=== PATIENT | male | born 1940 | race Caucasian/White ===

== ENCOUNTER → 2017-03-15 | Outpatient (CLI) | payer MEDICARE ==
[~2017-03-15] MED LIST: AMLO5TAB2 PO; ASPI81TAEC PO; ATOR1TAB21 PO; FINA5TAB2 PO; LISI-542 PO; LISI10TA4 PO; METO1TAB87 PO; RANI150T PO; RANI1TAB6 PO; TYLE167L PO
[2017-03-15 10:58] LABS: ALBUMIN 3.7 GM/DL (3.2-5.2); ANION GAP 6 MEQ/L (8-16); BLOOD UREA NITROGEN 12 MG/DL (7-18); CALCIUM LEVEL 8.8 MG/DL (8.8-10.2); CARBON DIOXIDE LEVEL 27 MEQ/L (21-32); CHLORIDE LEVEL 112 MEQ/L (98-107); CREATININE FOR GFR 1.23 MG/DL (0.70-1.30); GLOMERULAR FILTRATION RATE > 60.0 (>42); GLUCOSE, FASTING 88 MG/DL (83-110); PHOSPHORUS LEVEL 2.7 MG/DL (2.5-4.9); POTASSIUM SERUM 4.6 MEQ/L (3.5-5.1); SODIUM LEVEL 145 MEQ/L (136-145)
== END ==
LOC: M LAB 09:04
PROVIDERS: ATTEND Nurse Practitioner Family
DX: I10 Essential (primary) hypertension (principal)

== ENCOUNTER 2017-05-09 19:22 | Inpatient (IN) | payer MEDICARE ==
[~2017-05-09] VITALS: Ht 175.3 cm; Wt 62.5 kg
[~2017-05-09 19:22] MED LIST changes: -AMLO5TAB2 PO; -ASPI81TAEC PO; -ATOR1TAB21 PO; -FINA5TAB2 PO; -LISI-542 PO; -LISI10TA4 PO; -METO1TAB87 PO; -RANI150T PO
[2017-05-09] MEDS ORDERED: FINA5TAB2 PO (19:51)
[2017-05-09] MEDS ORDERED: LISI-542 PO (19:51)
[2017-05-09] MEDS ORDERED: ISOVUE-370 76% 100ML VIAL (Q9967) As Ordered ONE (20:00)
[2017-05-09] MEDS ORDERED: NS 1,000 ML IV ONE (20:00)
[2017-05-09] MEDS ORDERED: ONDANSETRON 4MG/2ML VIAL (J2405) IV ONE (20:00)
[2017-05-09 20:12] LABS: BASO % 0.3 % (0.0-1.0); EOS # 0.1 10^3/uL (0.0-0.50); EOS % 1.1 % (0.0-3.0); IMMATURE GRANULOCYTE % 0.3 % (0-0); LYMPH # 1.1 10^3/uL (1.5-4.5); LYMPH % 17.6 % (24.0-44.0); MEAN CORPUSCULAR HEMOGLOBIN 36.2 pg (27.0-33.0); MEAN CORPUSCULAR HGB CONC 34.3 g/dl (32.0-36.5); MONO # 0.2 10^3/uL (0.0-0.8); MONO % 3.5 % (0.0-5.0); NEUTROPHILS # 4.9 10^3/uL (1.8-7.7); NEUTROPHILS % 77.2 % (36.0-66.0); PLATELET COUNT, AUTOMATED 128 10^3/uL (150-450); RED CELL DISTRIBUTION WIDTH 13.6 % (11.5-14.5); WHITE BLOOD COUNT 6.4 10^3/uL (4.0-10.0)
[2017-05-09 20:13] LABS: ADD MORPHOLOGY? YES; MEAN CORPUSCULAR VOLUME 105.5 fl (80.0-96.0)
[2017-05-09 20:16] LABS: ALBUMIN/GLOBULIN RATIO 1.38 (1.00-1.93); ALKALINE PHOSPHATASE 84 U/L (45-117); ALT/SGPT 19 U/L (12-78); ANION GAP 6 MEQ/L (8-16); AST/SGOT 16 U/L (15-37); BILIRUBIN,DIRECT 0.1 MG/DL (0.0-0.2); BILIRUBIN,TOTAL 0.4 MG/DL (0.2-1.0); BLOOD UREA NITROGEN 12 MG/DL (7-18); CALCIUM LEVEL 9.1 MG/DL (8.8-10.2); CARBON DIOXIDE LEVEL 31 MEQ/L (21-32); CHLORIDE LEVEL 105 MEQ/L (98-107); CREATININE FOR GFR 1.14 MG/DL (0.70-1.30); GLOMERULAR FILTRATION RATE > 60.0 (>42); GLUCOSE, FASTING 127 MG/DL (83-110); POTASSIUM SERUM 3.5 MEQ/L (3.5-5.1); SODIUM LEVEL 142 MEQ/L (136-145); TOTAL PROTEIN 6.9 GM/DL (6.4-8.2)
[2017-05-09 20:26] LABS: INR 1.06
[2017-05-09] MEDS: MORPHINE 4 MG/ML 1ML SYRINGE IV PRN ×2 (20:50→20:51)
[2017-05-09] MEDS ORDERED: PIPERACILLIN/TAZOBACTAM SOD 3.375 GM in D5W 50 ML IV ONE (21:00)
--- NOTE | 2017-05-09 21:20 | REPUSA ---
CT angiogram of the abdominal aorta, CT of the abdomen and pelvis with contrast Clinical statement: Pain. Technique: Multiple axial CT images were obtained from the base of the lungs through the floor of the pelvis following administration of 100 cc of Isovue-370 intravenous contrast. 1.25 mm axial slice th [facility] was utilized. Coronal, sagittal, and 3-D reconstructed images were also obtained. Comparison: 05/26/2014. Findings: Aorta: The aortoiliac stent graft is grossly intact. Mild atherosclerotic changes are noted. There is no evidence of aneurysm or dissection. There is no evidence of extravasation. Chest: The visualized lung bases demonstrate extensive emphysema and chronic interstitial changes, in cluding scarring in the right lower lobe. Abdomen: Moderate amount of free intraperitoneal air scattered throughout the abdomen. The liver, spl een, pancreas, gallbladder, and adrenal glands are unremarkable. There is a 2 cm simple cyst in the u pper left kidney. The right kidney is unremarkable. There is no evidence of abdominal lymphadenopathy or ascites. Pelvis: There is extensive sigmoid diverticulosis. Bowel wall thickening in this region is noted, wit h adjacent collections of free air. This is suspicious for acute diverticulitis with perforation. A s mall amount of adjacent ascites extending into the lower pelvis is also noted. The urinary bladder is within normal limits. The other pelvic structures appear grossly intact. There is no evidence of pel ruperto lymphadenopathy. Bones: There are no suspicious osseous abnormalities seen. Impression: 1. Extensive sigmoid diverticulosis with bowel wall thickening and surrounding fluid as well as colle ction of free air along the mesenteric border of the sigmoid. The findings are suspicious for acute s igmoid diverticulitis with acute perforation. 2. There is moderate amount of diffuse free intraperitoneal air within the pelvis extending into the upper abdomen under the diaphragms bilaterally. 3. Small amount of abdominal and pelvic ascites. No discrete evidence of abscess. 4. The aortoiliac stent graft is grossly intact. 5. Simple cyst in the upper left kidney. Dr. Mckeon was notified of these findings at 9:16 PM on 05/09/2013.
[2017-05-09] MEDS ORDERED: RANI150T PO (21:57)
[2017-05-09] MEDS ORDERED: ASPI81TAEC PO (21:57)
[2017-05-09 22:06] LABS: ANISOCYTOSIS 2+
[2017-05-09 22:07] LABS: MICROCYTOSIS 2+
[2017-05-09] MEDS ORDERED: SUCCINYLCHOLINE 100 MG/5 ML SYRINGE (J0330) As Ordered ONE ×2 (22:55→23:00)
[2017-05-09] MEDS ORDERED: fentaNYL 100 MCG/2 ML INJECTION (J3010) As Ordered ONE (22:59)
[2017-05-09] MEDS ORDERED: MIDAZOLAM INJ 2 MG/2 ML VIAL (J2250) As Ordered ONE (22:59)
[2017-05-09] MEDS ORDERED: PHENYLephrine HCL 500 MCG/5 ML (100MCG/ML) SYRINGE (J2370) As Ordered ONE (22:59)
[2017-05-09] MEDS ORDERED: ROCURONIUM BROMIDE 50 MG/5 ML VIAL/SYRINGE As Ordered ONE (23:00)
[2017-05-09] MEDS ORDERED: LIDOCAINE 2% INJ 100 MG/5 ML SDV (FOR ANES.) As Ordered ONE (23:00)
[2017-05-09] MEDS ORDERED: PROPOFOL 200 MG/20 ML VIAL As Ordered ONE (23:00)
[2017-05-09] MEDS ORDERED: NEOSTIGMINE 10 MG/10 ML VIAL (J2710) As Ordered ONE (23:01)
[2017-05-09] MEDS ORDERED: GLYCOPYRROLATE INJ 0.2 MG/ML 2 ML VIAL As Ordered ONE (23:01)
[2017-05-09] MEDS ORDERED: HYDROmorphone HCL 2 MG/ML 1ML VIAL (J1170) As Ordered ONE (23:04)
[2017-05-09 23:12] LABS: ABG BASE EXCESS 1.9 (-2.0-2.0); ABG HCO3 26.5 MEQ/L (22.0-26.0); ABG PARTIAL PRESSURE CO2 41.4 mmHg (35.0-45.0); ABG PARTIAL PRESSURE O2 286.9 mmHg (75.0-100.0); ABG STANDARD HCO3 26.2 MEQ/L (22.0-26.0); ABG TOTAL CO2 27.8 MEQ/L (23.0-31.0); ABG pH (ARTERIAL) 7.424 UNITS (7.350-7.450)
[2017-05-09] MEDS ORDERED: LABETALOL HCL 100 MG/20 ML VIAL As Ordered ONE (23:34)
[2017-05-10] VITALS (22 sets, daily range): BP systolic 75–133; BP diastolic 49–68; O2SAT 99
[2017-05-10] MEDS ORDERED: ONDANSETRON 4MG/2ML VIAL (J2405) As Ordered ONE (00:21)
[2017-05-10] MEDS ORDERED: NS 1,000 ML IV SCH (00:44)
[2017-05-10] MEDS ORDERED: diphenhydrAMINE INJ 50MG/ML VIAL (J1200) IV PRN (00:45)
[2017-05-10] MEDS ORDERED: CIPROFLOXACIN 400 MG in APPROPRIATE DILUENT 1 EA IV SCH (00:45)
[2017-05-10] MEDS ORDERED: MORPHINE 1MG/ML IN 0.9% NACL 100ML IV BAG IV PRN (00:45)
[2017-05-10] MEDS ORDERED: MORPHINE 1MG/ML IN 0.9% NACL 100ML IV BAG As Ordered ONE (00:45)
[2017-05-10] MEDS ORDERED: EPIDURAL/PCA KEYS XX PRN (00:45)
[2017-05-10] MEDS ORDERED: NALOXONE INJ 0.4 MG/1 ML VIAL (J2310) IV PRN (00:45)
[2017-05-10] MEDS ORDERED: ONDANSETRON 4MG/2ML VIAL (J2405) IV PRN ×3 (00:45→01:30)
[2017-05-10] MEDS ORDERED: PROMETHAZINE INJ 25 MG/ML VIAL (J2550) IV PRN (00:45)
[2017-05-10] MEDS ORDERED: METOCLOPRAMIDE INJ 10MG/2ML VIAL (J2765) IV PRN (00:45)
[2017-05-10] MEDS ORDERED: NALBUPHINE HCL 10 MG/ML AMP (J2300) IV PRN (00:45)
[2017-05-10] MEDS ORDERED: IPRATROPIUM 0.5MG/ALBUTEROL 2.5MG INH SOL UD 3ML (DUONEB)(J7620) NEB PRN (00:45)
[2017-05-10] MEDS ORDERED: HYDROmorphone HCL 1 MG/ML SYRINGE (J1170) As Ordered ONE (01:20)
[2017-05-10] MEDS ORDERED: fentaNYL 100 MCG/2 ML INJECTION (J3010) IV PRN (01:30)
[2017-05-10] MEDS ORDERED: LABETALOL HCL 100 MG/20 ML VIAL IV PRN (01:30)
[2017-05-10] MEDS ORDERED: LR 1,000 ML IV SCH (01:30)
[2017-05-10] MEDS: HYDROmorphone HCL 1 MG/ML SYRINGE (J1170) IV PRN ×2 (02:05→02:20)
[2017-05-10] MEDS: CIPROFLOXACIN 400 MG in APPROPRIATE DILUENT 1 EA IV SCH ×2 (03:39→13:37)
[2017-05-10] MEDS: NS 1,000 ML IV SCH ×4 (03:40→22:48)
[2017-05-10 03:43] LABS: MEAN CORPUSCULAR HEMOGLOBIN 35.8 pg (27.0-33.0); MEAN CORPUSCULAR HGB CONC 33.9 g/dl (32.0-36.5); RED CELL DISTRIBUTION WIDTH 13.8 % (11.5-14.5); WHITE BLOOD COUNT 7.3 10^3/uL (4.0-10.0)
[2017-05-10 03:45] LABS: MEAN CORPUSCULAR VOLUME 105.7 fl (80.0-96.0)
[2017-05-10 04:05] LABS: ANION GAP 6 MEQ/L (8-16); BLOOD UREA NITROGEN 14 MG/DL (7-18); CARBON DIOXIDE LEVEL 28 MEQ/L (21-32); CHLORIDE LEVEL 110 MEQ/L (98-107); CREATININE FOR GFR 1.21 MG/DL (0.70-1.30); GLOMERULAR FILTRATION RATE > 60.0 (>42); GLUCOSE, FASTING 126 MG/DL (83-110); POTASSIUM SERUM 4.1 MEQ/L (3.5-5.1); SODIUM LEVEL 144 MEQ/L (136-145)
[2017-05-10 04:25] LABS: CALCIUM LEVEL 7.6 MG/DL (8.8-10.2)
[2017-05-10] MEDS: metroNIDAZOLE 500 MG in APPROPRIATE DILUENT 1 EA IV SCH ×3 (05:42→20:35)
[2017-05-10] MEDS: IPRATROPIUM 0.5MG/ALBUTEROL 2.5MG INH SOL UD 3ML (DUONEB)(J7620) NEB SCH ×4 (06:13→19:03)
[2017-05-10] MEDS ORDERED: SODIUM CHLORIDE 0.9% 1000 ML IV ONE (06:15)
[2017-05-10] MEDS: LISINOPRIL 5 MG TAB PO SCH (09:00)
[2017-05-10] MEDS: PANTOPRAZOLE 40MG INJ (PROTONIX) (C9113) IV SCH (09:17)
--- NOTE | 2017-05-10 15:25 | HPE ---
DATE OF ADMISSION: 05/10/2017 HISTORY OF PRESENT ILLNESS: The patient is a 76-year-old male who has had some constipation over the last 3 days, however, developed acute onset of abdominal pain radiating to his back earlier today. Since that time he has been brought into the emergency room with this severe abdominal pain without fevers, without chills. No diarrhea. No constipation issues. No blood per rectum. No previous colonoscopy. Has had a percutaneous endoscopic gastrostomy tube placed by Dr. 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 There is question whether he has had some ulcers in the past. I was called see him for free air appreciated on CT scan and severe abdominal pain. PAST MEDICAL HISTORY: Significant for: 1. History of mouth cancer. 2. History of colitis. 3. History of arthritis. 4. History of abdominal aortic aneurysm repair. 5. History of hypertension. 6. History of gastric ulcers. 7. History of tonsillectomy. 8. History of percutaneous abdominal aortic aneurysm repair. MEDICATIONS: Included aspirin, finasteride, ranitidine, and lisinopril. PHYSICAL EXAMINATION: Reveals a 76-year-old male who is writhing in bed. HEENT: Unremarkable. NECK: Supple without adenopathy. LUNGS: Clear to auscultation. HEART: Regular. ABDOMEN: Tensely distended with diffuse peritonitis, guarding, rebound, and referred rebound throughout. EXTREMITIES: Warm, well-perfused, although does have some good femoral pulses, although becoming somewhat clammy distally at this point but good pulses and capillary refill at this point. IMPRESSION AND PLAN: The patient has a perforated bowel on CT scan. I anticipate, given its distribution and the inflammatory changes around the sigmoid area, it is most likely a perforated sigmoid colon given that there are some diverticula appreciated, most likely perforated diverticulitis. Will plan on exploratory laparotomy, repair of ulcer if necessary, but most likely is bowel resection with possible colostomy. The patient understands the risks as well as benefits, and I have discussed this with him and his son who agreed to proceed with operative intervention as soon as possible.
--- NOTE | 2017-05-10 15:36 | IPN ---
DATE: The patient is status post sigmoid colectomy and colostomy last night and overall needed a fluid bolus because of decreased urine output during the night, but otherwise his urine output picked up nicely throughout the rest of the morning. He has had no fevers originally this morning right after the operation but then has had a maximum temperature of 100.4. Does not complain of any respiratory complaints. Complains of pain associated with movement. He is sitting up in chair. Lungs are clear to auscultation anteriorly, decreased at the bases bilaterally. Heart is regular. Abdomen is soft, tender, though, throughout. His dressing is clean and dry on the midline. His ostomy is pink, although quite edematous. There is no a drainage from the ostomy at this time. IMPRESSION AND PLAN: 1. Fluid status. Seems to be making adequate urine. Creatinine did not significantly bump up, and with increasing urine output I feel that will keep the current fluid rate as is and re-evaluate it as necessary. 2. Infection, currently on antibiotics appropriate for perforated diverticulitis. 3. Flower catheter. Unable to ambulate well. Will keep the Flower catheter in place. 4. Respiratory. The patient has some probable dependent atelectasis on his physical exam as expected with such as a large operation. Will continue with incentive spirometry and respiratory treatment. 5. Pain control. Has not been using his pain/patient-controlled analgesia (ARTIFICIAL FOLIAGE ARRANGER) adequately at this time. We have encouraged him to use it, and if he does not do well with the pain itself, my recommendation is that we may need to place an epidural. Will re-evaluate him later on today.
--- NOTE | 2017-05-10 17:58 | RO ---
DATE OF PROCEDURE: 05/10/2017 PREOPERATIVE DIAGNOSIS: Perforated bowel. POSTOPERATIVE DIAGNOSIS: Perforated diverticulitis/sigmoid colon. OPERATIVE PROCEDURE: Exploratory laparotomy with sigmoid colectomy and colostomy. SURGEON: Paul Bland MD GLYCERIN OPERATOR: ANESTHESIA: General endotracheal anesthesia ESTIMATED BLOOD LOSS: 250 mL FLUIDS: Crystalloid. BRIEF PROCEDURE SUMMARY: The patient was taken to the operating room and was given general anesthesia. After adequate anesthesia and preoperative antibiotics were given the patient was prepped and draped in the usual sterile fashion. Next a midline incision was made with skin knife. Electrocautery was used to cut through dermis and underlying subcutaneous tissue down through the fascia. Peritoneum was entered and there was some purulent bloody fluid within the peritoneum. This was more turbid than expected from the stomach. The stomach was evaluated with palpation, did not reveal any inflammatory changes. However, there was some on palpation inflammatory changes down in the sigmoid area. Thus the incision was extended inferiorly and Bookwalter retractor was used to provide retraction. After using electrocautery to dissect the white line of Toldt, the sigmoid colon was able to be mobilized. Ureter was seen and preserved during this and the white line of Toldt was used to dissect out the colon laterally. However, the colon was almost posterior to the kidney laterally in this area. But in any case, the peritoneum was taken down in this area and once this was mobilized adequately I felt that the sigmoid colon perforation area could be visualized was able to be resected. Sigmoid colon was mobilized off the pelvic sidewall with some blunt dissection and the colon proximally was transected using a GENI 75 stapler. Latty 60 vascular loads were used to take the mesentery. However, there was this loop of sigmoid colon that was into the pelvis, that was firmly adherent to the pelvis itself, which eventually was dissected off surrounding tissue and mobilized adequately. Once I got to the rectosigmoid junction area and this thickened abnormal area of sigmoid colon was visualized, the mesentery was taken with Latty vascular load and the rectosigmoid junction area was transected using a GENI stapler. This portion was removed and was packed with a dry gauze. There was some oozing from the peritoneum in this area and after some mild pressure this was had stopped nicely. Once the descending colon/sigmoid area proximally had been mobilized, the abdomen was copiously irrigated until clear. A #19 [place] drain was left in the bed of the dissection down into the pelvis and the colostomy was brought out through a left-sided transrectus muscle incision using a sharp skin knife to create the skin incision. Electrocautery through the subcutaneous tissue down to the fascia. Fascia was incised with a cruciate incision. Both anterior and posterior aspect of rectus muscle and the colon was brought out through this site. Next, the gown and gloves were changed and a closing tray was used and the incision was closed with looped #0 PDS in a running manner. Skin was loosely approximated and packed with gauze. The ostomy was fashioned using #3-0 Vicryl imbricating on the antimesenteric side and using multiple interrupted #3-0 Vicryl sutures. The ostomy appliance was fashioned and a dry sterile dressing was placed on the midline. The patient was awakened from his anesthesia, extubated and brought to the recovery room awake, alert and hemodynamically stable. Sponge and needle counts correct times two.
[2017-05-10] MEDS: [UNRECOGNIZED DRUG - OTHER] PO PRN ×2 (20:09→22:18)
[2017-05-11] VITALS (23 sets, daily range): BP systolic 91–160; BP diastolic 48–76; O2SAT 98–99
[2017-05-11] MEDS: CIPROFLOXACIN 400 MG in APPROPRIATE DILUENT 1 EA IV SCH ×2 (00:11→14:00)
[2017-05-11] MEDS: [UNRECOGNIZED DRUG - OTHER] PO PRN ×5 (00:12→14:00)
[2017-05-11] MEDS: IPRATROPIUM 0.5MG/ALBUTEROL 2.5MG INH SOL UD 3ML (DUONEB)(J7620) NEB SCH ×4 (00:54→20:34)
[2017-05-11] MEDS: metroNIDAZOLE 500 MG in APPROPRIATE DILUENT 1 EA IV SCH ×3 (04:24→21:46)
[2017-05-11 05:01] LABS: MEAN CORPUSCULAR HEMOGLOBIN 35.9 pg (27.0-33.0); MEAN CORPUSCULAR HGB CONC 33.2 g/dl (32.0-36.5); RED CELL DISTRIBUTION WIDTH 14.1 % (11.5-14.5); WHITE BLOOD COUNT 9.1 10^3/uL (4.0-10.0)
[2017-05-11 05:05] LABS: MEAN CORPUSCULAR VOLUME 108.1 fl (80.0-96.0)
[2017-05-11 05:06] LABS: PLATELET COUNT, AUTOMATED 89 10^3/uL (150-450)
[2017-05-11 05:19] LABS: ANION GAP 5 MEQ/L (8-16); BLOOD UREA NITROGEN 19 MG/DL (7-18); CALCIUM LEVEL 6.7 MG/DL (8.8-10.2); CARBON DIOXIDE LEVEL 28 MEQ/L (21-32); CHLORIDE LEVEL 108 MEQ/L (98-107); CREATININE FOR GFR 1.07 MG/DL (0.70-1.30); GLOMERULAR FILTRATION RATE > 60.0 (>42); GLUCOSE, FASTING 113 MG/DL (83-110); POTASSIUM SERUM 4.1 MEQ/L (3.5-5.1); SODIUM LEVEL 141 MEQ/L (136-145)
[2017-05-11] MEDS: LISINOPRIL 5 MG TAB PO SCH (08:13)
[2017-05-11] MEDS: PANTOPRAZOLE 40MG INJ (PROTONIX) (C9113) IV SCH (08:13)
[2017-05-11] MEDS ORDERED: CALCIUM GLUCONATE 1,000 MG in D5W MINI-BAG PLUS 100 ML IV ONE (10:15)
[2017-05-11 11:11] LABS: REASON FOR REVIEW COMPREHENSIVE REVIEW
[2017-05-11] MEDS: NS 1,000 ML IV SCH (11:24)
[2017-05-11 12:30] LABS: MEAN CORPUSCULAR HEMOGLOBIN 36.7 pg (27.0-33.0); MEAN CORPUSCULAR HGB CONC 33.5 g/dl (32.0-36.5); RED CELL DISTRIBUTION WIDTH 14.2 % (11.5-14.5); WHITE BLOOD COUNT 9.1 10^3/uL (4.0-10.0)
[2017-05-11 12:34] LABS: MEAN CORPUSCULAR VOLUME 109.4 fl (80.0-96.0)
--- NOTE | 2017-05-11 14:54 | IPNPDOC ---
Text Note Date of Service The patient was seen on 05/11/17. NOTE At 76-year-old man 2 days status post sigmoid colectomy and colostomy. Patient' s pain control is via ASSISTANT AUDITOR pump however it appears the patient is not using as much as he needs to. Patient was also on continuous morphine drip however that had to be discontinued because patient appeared sedated and respiratory decreased became a concerned. This morning patient appears to be in severe pain. Patient responds to all questions 5 morning, and went to the pain. PE Gen., patient is resting better. Appears to be in severe pain Heart, S1 and S2 present, no murmurs rubs or gallops Lungs, clear to auscultate Abdomen, palpated abdomen seems to reproduce significant pain the patient. His dressings are dry and is midline. His ostomy is pink, with drainage in his ostomy bag. Legs, no deformities IMPRESSION AND PLAN: 1. Fluid status. Patient appears significant excess urine. His fluid has been decrease to prevent fluid overload 2. Infection, currently on antibiotics appropriate for perforated diverticulitis. 3. Flower catheter. Unable to ambulate well. Will keep the Flower catheter in place. 4. Respiratory. The patient has some probable dependent atelectasis on his physical exam as expected with such as a large operation. Will continue with incentive spirometry and respiratory treatment. 5. Pain control. Pain is controlled on ASSISTANT AUDITOR pump however patient is not using that. Spoke with anesthesia to possibly evaluate for placement of 6. Thrombocytopenia. Medicine has been consulted on patient's Thrombocytopenia VS,Mal, I+O VS, Mal, I+O Laboratory Tests 05/11/17 04:53 Red Blood Count 3.09 L, Mean Corpuscular Volume 108.1 H, Mean Corpuscular Hemoglobin 35.9 H, Mean Corpuscular Hemoglobin Concent 33.2, Red Cell Distribution Width 14.1, Calcium Level 6.7 L Vital Signs Date Time Temp Pulse Resp B/P (MAP) Pulse Ox O2 Delivery O2 Flow Rate FiO2 05/11/17 09:16 98 Nasal Cannula 2.0 05/11/17 08:13 131/61 05/11/17 08:00 100.3 108 17 05/10/17 02:30 50 GME ATTESTATION GME ATTESTATION My preceptor for this patient encounter was physically present in the building during the encounter and was fully available. As needed, all aspects of the patient interview, examination, medical decision making process, and medical care plan development were reviewed and approved by the preceptor. Preceptor is aware and concurs with the plan as stated in the body of this note and will attest to such by his/her cosignature. VIOLETTA RODRIGUEZ DO May 11, 2017 11:57
[2017-05-11] MEDS: ACETAMINOPHEN TAB 650MG DOSE (2X325MG) PO PRN (15:41)
--- NOTE | 2017-05-11 17:20 | CR.PDOC ---
[facility] Consultation Consultation DATE OF CONSULTATION: May 09, 2017 at 21:14 PRIMARY CARE PHYSICIAN: Unknown REFERRING PROVIDER: Dr. Bland ATTENDING PHYSICIAN: Dr. Dr. Bland REASON FOR CONSULTATION/CHIEF COMPLAINT: Thrombocytopenia HISTORY OF PRESENT ILLNESS: This is a 76-year-old male with a past medical history of colitis, mouth cancer , gastric ulcer, hypertension, AAA repair, status post PPM, chronic thrombocytopenia who presents with significant abdominal pain, and was found to have acute diverticulitis with perforation. The patient was taken to the OR emergently and is status post exploratory lap with colostomy. Patient was started on Cipro/Flagyl. He was noted to have leukocytosis as well as lactic acidosis. The patient was also noted to have thrombocytopenia, however no bleeding. History was limited from the patient as he was in significant amount of pain. The patient was still in pain despite having the MAPPING PILOT pump. Anesthesia was consulted by surgery and they will be placing an epidural. The patient was given 1 unit of platelets. ALLERGIES: Please see below. HOME MEDICATIONS: Please see below. PAST MEDICAL HISTORY: As per HPI PAST SURGICAL HISTORY: Status post PPM FAMILY HISTORY: Noncontributory SOCIAL HISTORY: Unable to obtain at this time REVIEW OF SYSTEMS: HEENT: Denies sore throat/headache CARDIOVASCULAR: Denies chest pain/palpitations RESPIRATORY: Denies shortness of breath/cough GASTROINTESTINAL: denies nausea/vomiting. + Abd pain GENITOURINARY: Denies dysuria/urinary urgency. MUSCULOSKELETAL: Denies myalgias/arthralgias NEUROLOGICAL: Denies any focal weakness PHYSICAL EXAMINATION: Vitals: (see below) General: No acute distress, laying comfortably in bed. HEENT: Moist mucous membranes. Neck: No JVD or lymphadenopathy Cardiac: Tachycardic, No murmurs Pulm: Diminished breath sounds at the bases b/l. No wheezing, rhonchi Abd: Tenderness to palpation diffusely more so at the incision sites, that is intact with serosanguineous fluid. Mildly distended. No rigidity. Ext: No edema or cyanosis LABORATORY DATA: Please see below. Images CT abdomen and pelvis on 05/09/17 Impression: 1. Extensive sigmoid diverticulosis with bowel wall thickening and surrounding fluid as well as collection of free air along the mesenteric border of the sigmoid. The findings are suspicious for acute sigmoid diverticulitis with acute perforation. 2. There is moderate amount of diffuse free intraperitoneal air within the pelvis extending into the upper abdomen under the diaphragms bilaterally. 3. Small amount of abdominal and pelvic ascites. No discrete evidence of abscess. 4. The aortoiliac stent graft is grossly intact. 5. Simple cyst in the upper left kidney. ASSESSMENT/PLAN: 1. Sepsis secondary to Acute diverticulitis with perforation, status post exploratory laparotomy, now with colostomy. Pain is uncontrolled at this time and anesthesia will be placing epidural. On Cipro/Flagyl. CRP elevated, leukocytosis. Tachycardic, and still febrile. Lactic acidosis improved. Blood culture sent. 2. Acute on chronic Thrombocytopenia- likely secondary to sepsis. Patient has had platelets down to 114 05/2015. No bleeding at this time. Status post 1 unit of platelets for epidural placement. The peripheral smear sent. 3. History of Gastric ulcer on PPI 4. Hypertension controlled 5. History of AAA repair 6. Status post PPM 7. Macrocytosis- B12 and folate ordered for the a.m. 8. Chronic anemia- stable. No need for transfusion at this time. DVT prophylaxis SCDs Prognosis guarded Vital Signs/I&O Vital Signs Date Time Temp Pulse Resp B/P (MAP) Pulse Ox O2 Delivery O2 Flow Rate FiO2 05/11/17 15:35 101.4 98 12 122/63 (82) 97 Nasal Cannula 3.0 05/10/17 02:30 50 I&O- Last 24 Hours up to 6 AM 05/12/17 06:00 Intake Total 0 ml Output Total 440 ml Balance -440 ml Laboratory Data Labs 24H Laboratory Tests 2 05/11/17 04:53: Anion Gap 5L, Glomerular Filtration Rate > 60.0, Blood Urea Nitrogen 19H, Creatinine 1.07, Sodium Level 141, Potassium Level 4.1, Chloride Level 108H, Carbon Dioxide Level 28, Calcium Level 6.7L 05/11/17 10:32: Differential Slide Review Report, Differential Pathologist's Review COMPREHENSIVE REVIEW, Peripheral Blood Smear Path Consult PERIPHERAL SMEAR, Lactic Acid Level 1.0, C-Reactive Protein, Quantitative 23.90H CBC/BMP Laboratory Tests 05/11/17 04:53 Red Blood Count 3.09 L, Mean Corpuscular Volume 108.1 H, Mean Corpuscular Hemoglobin 35.9 H, Mean Corpuscular Hemoglobin Concent 33.2, Red Cell Distribution Width 14.1, Calcium Level 6.7 L 05/11/17 12:03 Red Blood Count 2.97 L, Mean Corpuscular Volume 109.4 H, Mean Corpuscular Hemoglobin 36.7 H, Mean Corpuscular Hemoglobin Concent 33.5, Red Cell Distribution Width 14.2 Microbiology Microbiology 05/11/17 Blood Culture, Received Pending 05/11/17 Blood Culture, Received Pending Allergies Coded Allergies: No Known Allergies (Unverified , 12/24/13) Home Medications Scheduled Aspirin (Aspirin EC) 81 Mg Tabec, 81 MG PO DAILY, (Reported) Finasteride (Finasteride) 5 Mg Tab, 5 MG PO DAILY, (Reported) Lisinopril (Lisinopril) 5 Mg Tab, 5 MG PO DAILY, (Reported) Ranitidine HCl (Ranitidine HCl) 150 Mg Tab, 1 TAB PO BID, (Reported) NYASIA AGUILAR MD May 11, 2017 17:20
[2017-05-11 18:30] LABS: INR 1.36
[2017-05-11] MEDS ORDERED: MIDAZOLAM INJ 2 MG/2 ML VIAL (J2250) As Ordered ONE (18:44)
[2017-05-11] MEDS ORDERED: fentaNYL 100 MCG/2 ML INJECTION (J3010) As Ordered ONE (18:44)
[2017-05-11] MEDS ORDERED: MIDAZOLAM INJ 2 MG/2 ML VIAL (J2250) IV PRN (19:30)
[2017-05-11] MEDS ORDERED: ONDANSETRON 4MG/2ML VIAL (J2405) IV PRN (19:30)
[2017-05-11] MEDS ORDERED: FENTANYL/BUPIVACAINE/NACL BAG 250 ML EPIDURAL SCH (19:30)
[2017-05-11] MEDS ORDERED: NALOXONE INJ 0.4 MG/1 ML VIAL (J2310) IV PRN (19:30)
[2017-05-11] MEDS ORDERED: fentaNYL 100 MCG/2 ML INJECTION (J3010) IV PRN (19:30)
[2017-05-11] MEDS ORDERED: METOCLOPRAMIDE INJ 10MG/2ML VIAL (J2765) IV PRN (19:30)
[2017-05-11] MEDS ORDERED: EPIDURAL/PCA KEYS XX PRN (19:30)
[2017-05-11] MEDS ORDERED: diphenhydrAMINE INJ 50MG/ML VIAL (J1200) IV PRN (19:30)
[2017-05-11] MEDS ORDERED: WALLBOXKEY XX PRN (19:30)
[2017-05-12] VITALS (13 sets, daily range): BP systolic 129–183; BP diastolic 61–88; O2SAT 98
[2017-05-12] MEDS: CIPROFLOXACIN 400 MG in APPROPRIATE DILUENT 1 EA IV SCH ×2 (00:51→13:02)
[2017-05-12] MEDS: IPRATROPIUM 0.5MG/ALBUTEROL 2.5MG INH SOL UD 3ML (DUONEB)(J7620) NEB SCH ×4 (00:52→19:49)
[2017-05-12] MEDS: [UNRECOGNIZED DRUG - OTHER] PO PRN ×3 (02:00→20:00)
[2017-05-12] MEDS: metroNIDAZOLE 500 MG in APPROPRIATE DILUENT 1 EA IV SCH ×3 (04:33→20:00)
[2017-05-12 05:20] LABS: MEAN CORPUSCULAR HEMOGLOBIN 36.3 pg (27.0-33.0); MEAN CORPUSCULAR HGB CONC 33.5 g/dl (32.0-36.5); RED CELL DISTRIBUTION WIDTH 13.6 % (11.5-14.5); WHITE BLOOD COUNT 7.8 10^3/uL (4.0-10.0)
[2017-05-12 05:22] LABS: MEAN CORPUSCULAR VOLUME 108.1 fl (80.0-96.0)
[2017-05-12 05:40] LABS: ANION GAP 9 MEQ/L (8-16); BLOOD UREA NITROGEN 16 MG/DL (7-18); CALCIUM LEVEL 7.5 MG/DL (8.8-10.2); CARBON DIOXIDE LEVEL 25 MEQ/L (21-32); CHLORIDE LEVEL 107 MEQ/L (98-107); CREATININE FOR GFR 0.85 MG/DL (0.70-1.30); FERRITIN 454 NG/ML (26-388); GLOMERULAR FILTRATION RATE > 60.0 (>42); GLUCOSE, FASTING 114 MG/DL (83-110); PERCENT SATURATION 18.1 % (19.7-50.0); POTASSIUM SERUM 3.7 MEQ/L (3.5-5.1); SODIUM LEVEL 141 MEQ/L (136-145); TOTAL IRON BINDING CAPACITY 155 UG/DL (250-450)
--- NOTE | 2017-05-12 05:43 | ECGEPIP ---
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
--- NOTE | 2017-05-12 08:06 | IPNPDOC ---
Date Seen The patient was seen on 05/12/17. Progress Note At 76-year-old man 3 days status post sigmoid colectomy and colostomy. This morning patient is alert. Patient had an epidural place on 05/11/17 due to pain. When asked about his pain, patient stated that he was no longer in pain. Overnight he had a series of low grade high temperatures and a fever of 101.4. This was also his T-max. OBJECTIVE PHYSICAL EXAMINATION: VITAL SIGNS: Please see below. GENERAL: Alert, orientated, CARDIOVASCULAR: S1 and S2 present, no murmurs RESPIRATORY: CTAB ABDOMINAL: Visible colostomy. No bowel content in ostomy bag. No air in ostomy bag. Ostomy is non erythematous and no purulent drainage is visible LABORATORY DATA: Please see below. MICROBIOLOGY: Please see below. ASSESSMENT AND PLAN: A 76 year old male 3 days status post ex lap with colectomy and colostomy placement. PROBLEMS: 1. Fluid status: Pt is maintaining proper urinary output 2. Infection: Pt is on antibiotics for perforated bowel 3. Flower Catheter: In place 4. Pain: Pain is controlled with epidural 5. Thrombocytopenia: Medicine is on board and is managing. 6. Ilues: Normal post opp illues, G.I function has not return. ostomy bag does not bowel content and there is no air in the bag. Meaning patient does not have flatus yet. ICU status: Patient might be able to be transferred to PCU once his pain is under control with continues clinical improvements. VS, I&O, 24H, Fishbone Vital Signs/I&O Vital Signs Date Time Temp Pulse Resp B/P (MAP) Pulse Ox O2 Delivery O2 Flow Rate FiO2 05/12/17 06:17 121 176/81 (112) 93 05/12/17 04:00 98.8 21 Room Air 05/12/17 00:00 2.0 05/10/17 02:30 50 Laboratory Data 24H LABS Laboratory Tests 2 05/11/17 10:32: Differential Slide Review Report, Differential Pathologist's Review COMPREHENSIVE REVIEW, Peripheral Blood Smear Path Consult PERIPHERAL SMEAR, Lactic Acid Level 1.0, C-Reactive Protein, Quantitative 23.90H 05/11/17 18:05: Prothrombin Time 17.1H, Prothromb Time International Ratio 1.36, Activated Partial Thromboplast Time 45.6H 05/12/17 05:02: Anion Gap 9, Glomerular Filtration Rate > 60.0, Blood Urea Nitrogen 16, Creatinine 0.85, Sodium Level 141, Potassium Level 3.7, Chloride Level 107, Carbon Dioxide Level 25, Calcium Level 7.5L, Iron Level 28L, Total Iron Binding Capacity 155L, Transferrin % Saturation 18.1L, Ferritin 454H CBC/BMP Laboratory Tests Red Blood Count 2.97 L, Mean Corpuscular Volume 109.4 H, Mean Corpuscular Hemoglobin 36.7 H, Mean Corpuscular Hemoglobin Concent 33.5, Red Cell Distribution Width 14.2 Red Blood Count 2.95 L, Mean Corpuscular Volume 108.1 H, Mean Corpuscular Hemoglobin 36.3 H, Mean Corpuscular Hemoglobin Concent 33.5, Red Cell Distribution Width 13.6 05/12/17 05:02 Calcium Level 7.5 L Microbiology Microbiology 05/11/17 Blood Culture, Received Pending 05/11/17 Blood Culture, Received Pending GME ATTESTATION GME ATTESTATION My preceptor for this patient encounter was physically present in the building during the encounter and was fully available. As needed, all aspects of the patient interview, examination, medical decision making process, and medical care plan development were reviewed and approved by the preceptor. Preceptor is aware and concurs with the plan as stated in the body of this note and will attest to such by his/her cosignature. VIOLETTA RODRIGUEZ DO May 12, 2017 08:06
[2017-05-12] MEDS ORDERED: amLODIPine 5 MG TAB PO ONE (08:30)
[2017-05-12] MEDS ORDERED: EPIDURAL/PCA KEYS XX PRN (09:00)
[2017-05-12] MEDS ORDERED: diphenhydrAMINE INJ 50MG/ML VIAL (J1200) IV PRN (09:00)
[2017-05-12] MEDS ORDERED: METOCLOPRAMIDE INJ 10MG/2ML VIAL (J2765) IV PRN (09:00)
[2017-05-12] MEDS ORDERED: ONDANSETRON 4MG/2ML VIAL (J2405) IV PRN (09:00)
[2017-05-12] MEDS ORDERED: LISINOPRIL 10 MG TAB PO SCH (09:00)
[2017-05-12] MEDS ORDERED: WALLBOXKEY XX PRN (09:00)
[2017-05-12] MEDS ORDERED: NALOXONE INJ 0.4 MG/1 ML VIAL (J2310) IV PRN (09:00)
[2017-05-12] MEDS: PANTOPRAZOLE 40MG INJ (PROTONIX) (C9113) IV SCH (09:20)
[2017-05-12] MEDS: BUPIVACAINE/NACL BAG 250 ML EPIDURAL SCH (10:07)
[2017-05-12 12:12] LABS: FOLATE 6.1 NG/ML (>5.4); VITAMIN B12 LEVEL 177 PG/ML (247-911)
--- NOTE | 2017-05-12 14:29 | IPNPDOC ---
Text Note Date of Service The patient was seen on 05/12/17. NOTE Subjective: Pt states his pain is still uncontrolled. He is also delirious this am. PHYSICAL EXAMINATION: Vitals: (see below) General: No acute distress, laying comfortably in bed. HEENT: Moist mucous membranes. Neck: No JVD or lymphadenopathy Cardiac: Tachycardic, No murmurs Pulm: Diminished breath sounds at the bases b/l. No wheezing, rhonchi Abd: Tenderness to palpation diffusely more so at the incision sites, that is intact with serosanguineous fluid. Mildly distended. No rigidity. Ext: No edema or cyanosis LABORATORY DATA: Please see below. Images CT abdomen and pelvis on 05/09/17 Impression: 1. Extensive sigmoid diverticulosis with bowel wall thickening and surrounding fluid as well as collection of free air along the mesenteric border of the sigmoid. The findings are suspicious for acute sigmoid diverticulitis with acute perforation. 2. There is moderate amount of diffuse free intraperitoneal air within the pelvis extending into the upper abdomen under the diaphragms bilaterally. 3. Small amount of abdominal and pelvic ascites. No discrete evidence of abscess. 4. The aortoiliac stent graft is grossly intact. 5. Simple cyst in the upper left kidney. ASSESSMENT/PLAN: 1. Sepsis secondary to Acute diverticulitis with perforation, status post exploratory laparotomy, now with colostomy. Pain is uncontrolled at this time and now has an epidural. On Cipro/Flagyl. CRP elevated, improving. Tachycardic , and still febrile. Lactic acidosis improved. Blood culture sent. 2. Acute on chronic Thrombocytopenia- likely secondary to sepsis. Improved. Patient has had platelets down to 114 05/2015. No bleeding at this time. Status post 1 unit of platelets for epidural placement. The peripheral smear sent. 3. Delirium s/p surg, in an ICU setting. Likely 2/2 #1. Still febrile and tachycardic. 3. History of Gastric ulcer on PPI 4. Hypertension uncontrolled - Lisinopril increased, amlodipine added. 5. History of AAA repair 6. Status post PPM 7. Macrocytosis- B12 and folate ordered for the a.m. 8. Chronic anemia- stable. No need for transfusion at this time. DVT prophylaxis SCDs Prognosis guarded VS,Fishbone, I+O VS, Fishbone, I+O Laboratory Tests 05/11/17 17:00 05/12/17 05:01 Red Blood Count 2.95 L, Mean Corpuscular Volume 108.1 H, Mean Corpuscular Hemoglobin 36.3 H, Mean Corpuscular Hemoglobin Concent 33.5, Red Cell Distribution Width 13.6 05/12/17 05:02 Calcium Level 7.5 L Vital Signs Date Time Temp Pulse Resp B/P (MAP) Pulse Ox O2 Delivery O2 Flow Rate FiO2 05/12/17 14:07 122 30 05/12/17 12:00 100.4 145/82 (103) 97 Room Air 05/12/17 00:00 2.0 05/10/17 02:30 50 I&O- Last 24 Hours up to 6 AM 05/13/17 06:00 Intake Total 100 ml Output Total 600 ml Balance -500 ml NYASIA AGUILAR MD May 12, 2017 14:29
--- NOTE | 2017-05-12 17:37 | ECGEPIP ---
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
[2017-05-12] MEDS: NS 1,000 ML IV SCH (17:59)
[2017-05-12] MEDS: ACETAMINOPHEN TAB 650MG DOSE (2X325MG) PO PRN (18:10)
[2017-05-13] VITALS: BP 143/99
[2017-05-13] MEDS: IPRATROPIUM 0.5MG/ALBUTEROL 2.5MG INH SOL UD 3ML (DUONEB)(J7620) NEB SCH (00:36)
[2017-05-13] MEDS: CIPROFLOXACIN 400 MG in APPROPRIATE DILUENT 1 EA IV SCH ×2 (00:43→11:33)
[2017-05-13] MEDS: ACETAMINOPHEN TAB 650MG DOSE (2X325MG) PO PRN (00:48)
[2017-05-13] MEDS ORDERED: diltiaZEM 125 MG in NS 100 ML IV SCH (01:30)
--- NOTE | 2017-05-13 03:37 | IPNPDOC ---
Subjective Date Seen The patient was seen on 05/13/17. Subjective Chief Complaint/HPI The patient is a 76-year-old male admitted with a reason for visit of Perforated Bowel. Assessment /Plan Assessment overnight provider called to see pt. @ 0200 as he was refusing cardizem drip for heart rates into 160's, pt had son at bedside. pt was AAOx3, demonstrated clear understanding of why he was in the hospital and what the complications could be if he refused medication to control his heart, including stroke and . 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 The pt then began to rip at his NG tube, nursing staff was asked to remove it per patients wishes, all the while pt remained AAOx3 and very cognitively aware of the decisions he was making and their outcomes. Will make day team aware of overnight changes. Overnight provider made aware at 0330 pt was ripping out IV's, pt was spoken to w/ son at bedside. was AAOx3 and aware of his decisions and their implications. 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 Can consult anesthesia in AM for removal of epidural. Plan/VTE VTE Prophylaxis Ordered?: Yes Plan/Urinary Catheter Reason for insertion/continuin: Perioperative VS, I&O, 24H, Fishbone Vital Signs/I&O Vital Signs Date Time Temp Pulse Resp B/P (MAP) Pulse Ox O2 Delivery O2 Flow Rate FiO2 05/13/17 00:36 115 32 05/13/17 00:00 99.5 143/99 (114) 96 Nasal Cannula 1.0 05/10/17 02:30 50 Laboratory Data 24H LABS Laboratory Tests 2 05/12/17 05:02: Anion Gap 9, Glomerular Filtration Rate > 60.0, Blood Urea Nitrogen 16, Creatinine 0.85, Sodium Level 141, Potassium Level 3.7, Chloride Level 107, Carbon Dioxide Level 25, Calcium Level 7.5L, Iron Level 28L, Total Iron Binding Capacity 155L, Transferrin % Saturation 18.1L, Ferritin 454H, Vitamin B12 Level 177L, Folate 6.1 05/12/17 08:31: Whole Blood Ionized Calcium 4.6, C-Reactive Protein, Quantitative 21.60H CBC/BMP Laboratory Tests 05/12/17 05:01 Red Blood Count 2.95 L, Mean Corpuscular Volume 108.1 H, Mean Corpuscular Hemoglobin 36.3 H, Mean Corpuscular Hemoglobin Concent 33.5, Red Cell Distribution Width 13.6 05/12/17 05:02 Calcium Level 7.5 L Microbiology Microbiology 05/11/17 Blood Culture - Preliminary, Resulted No growth after 24 hours . All specim... 05/11/17 Blood Culture - Preliminary, Resulted No growth after 24 hours . All specim... GME ATTESTATION GME ATTESTATION My preceptor for this patient encounter was physically present in the building during the encounter and was fully available. As needed, all aspects of the patient interview, examination, medical decision making process, and medical care plan development were reviewed and approved by the preceptor. Preceptor is aware and concurs with the plan as stated in the body of this note and will attest to such by his/her cosignature. LIZETTE STOVALL DO May 13, 2017 03:37
[2017-05-13] MEDS: metroNIDAZOLE 500 MG in APPROPRIATE DILUENT 1 EA IV SCH ×3 (04:14→17:49)
[2017-05-13] MEDS: BUPIVACAINE/NACL BAG 250 ML EPIDURAL SCH (04:15)
[2017-05-13] MEDS ORDERED: MORPHINE 2 MG/ML 1ML SYRINGE IV PRN (04:30)
[2017-05-13 05:44] LABS: MEAN CORPUSCULAR HEMOGLOBIN 36.4 pg (27.0-33.0); MEAN CORPUSCULAR HGB CONC 35.3 g/dl (32.0-36.5); MEAN CORPUSCULAR VOLUME 103.2 fl (80.0-96.0); RED CELL DISTRIBUTION WIDTH 13.2 % (11.5-14.5); WHITE BLOOD COUNT 7.6 10^3/uL (4.0-10.0)
[2017-05-13 06:14] LABS: ANION GAP 11 MEQ/L (8-16); BLOOD UREA NITROGEN 15 MG/DL (7-18); CALCIUM LEVEL 8.2 MG/DL (8.8-10.2); CARBON DIOXIDE LEVEL 23 MEQ/L (21-32); CHLORIDE LEVEL 106 MEQ/L (98-107); CREATININE FOR GFR 0.71 MG/DL (0.70-1.30); GLOMERULAR FILTRATION RATE > 60.0 (>42); GLUCOSE, FASTING 103 MG/DL (83-110); POTASSIUM SERUM 3.2 MEQ/L (3.5-5.1); SODIUM LEVEL 140 MEQ/L (136-145)
[2017-05-13] MEDS ORDERED: amLODIPine 5 MG TAB PO SCH (09:00)
[2017-05-13] MEDS ORDERED: METOPROLOL 5 MG/5 ML VIAL IV STA (09:43)
[2017-05-13] MEDS ORDERED: D5W/0.9% SODIUM CHLORIDE 1,000 ML IV SCH (09:45)
[2017-05-13 10:00] VITALS: BP 192/94
[2017-05-13] MEDS ORDERED: POTASSIUM CHLORIDE 10 MEQ SR TABLET PO ONE (10:00)
[2017-05-13] MEDS: KCL 40MEQ IN D5/NS 1000ML 1,000 ML IV SCH (11:02)
[2017-05-13] MEDS: METOPROLOL TART 12.5 MG PER 1/2 TAB PO SCH ×2 (11:33→17:49)
[2017-05-13 12:06] VITALS: BP 160/100
[2017-05-13] MEDS ORDERED: diphenhydrAMINE INJ 50MG/ML VIAL (J1200) IV PRN (14:15)
[2017-05-13] MEDS ORDERED: NALOXONE INJ 0.4 MG/1 ML VIAL (J2310) IV PRN (14:15)
[2017-05-13] MEDS ORDERED: MORPHINE 1MG/ML IN 0.9% NACL 100ML IV BAG IV PRN (14:15)
[2017-05-13] MEDS ORDERED: NALBUPHINE HCL 10 MG/ML AMP (J2300) IV PRN (14:15)
[2017-05-13] MEDS ORDERED: EPIDURAL/PCA KEYS XX PRN (14:15)
--- NOTE | 2017-05-13 15:14 | IPNPDOC ---
Text Note Date of Service The patient was seen on 05/13/17. 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 I have had an extensive conversation with the patient and the son, and given that he is progressing, his inflammatory markers are improving, his pain is better controlled, we will discontinue the AMUSEMENT OR RECREATION CARD CHECKER status and continue with active medical management, DNR/DNI. The patient's antibiotics were restarted, his blood pressure medications were restarted. He was tachycardic this morning when he was placed on the monitor, he did have an EKG done this morning however he was in sinus tach. He denies chest pain/palpitations. He states that overall his pain is better controlled. PHYSICAL EXAMINATION: Vitals: (see below) General: No acute distress, laying comfortably in bed. HEENT: Moist mucous membranes. Neck: No JVD or lymphadenopathy Cardiac: Tachycardic, No murmurs Pulm: Diminished breath sounds at the bases b/l. No wheezing, rhonchi Abd: Minimal Tenderness to palpation at the incision sites, that is intact with serosanguineous fluid. Mildly distended. No rigidity. Ext: No edema or cyanosis Alert and oriented 3. LABORATORY DATA: Please see below. Images CT abdomen and pelvis on 05/09/17 Impression: 1. Extensive sigmoid diverticulosis with bowel wall thickening and surrounding fluid as well as collection of free air along the mesenteric border of the sigmoid. The findings are suspicious for acute sigmoid diverticulitis with acute perforation. 2. There is moderate amount of diffuse free intraperitoneal air within the pelvis extending into the upper abdomen under the diaphragms bilaterally. 3. Small amount of abdominal and pelvic ascites. No discrete evidence of abscess. 4. The aortoiliac stent graft is grossly intact. 5. Simple cyst in the upper left kidney. ASSESSMENT/PLAN: 1. Sepsis secondary to Acute diverticulitis with perforation, status post exploratory laparotomy, now with colostomy. Pain is uncontrolled at this time and now has an epidural. On Cipro/Flagyl. CRP elevated, improving. Afebrile. Lactic acidosis resolved. Blood culture negative. 2. Acute on chronic Thrombocytopenia- likely secondary to sepsis. Improved. Patient has had platelets down to 114 05/2015. No bleeding at this time. Status post 1 unit of platelets for epidural placement. The peripheral smear sent. 3. Delirium s/p surg, in an ICU setting. Likely 2/2 #1. Resolved. 3. History of Gastric ulcer on PPI 4. Hypertension uncontrolled -he has been restarted on lisinopril and amlodipine. 5. History of AAA repair 6. Status post PPM 7. Macrocytosis- B12 and folate ordered for the a.m. 8. Chronic anemia- stable. No need for transfusion at this time. Iron deficiency anemia. Started on ferrous sulfate. DVT prophylaxis SCDs Prognosis guarded, however he has significantly improved since his exploratory laparotomy. I have updated Dr. Yoon on the events overnight. VS,Fishbone, I+O VS, Fishbone, I+O Laboratory Tests 05/13/17 05:30 Red Blood Count 3.16 L, Mean Corpuscular Volume 103.2 H, Mean Corpuscular Hemoglobin 36.4 H, Mean Corpuscular Hemoglobin Concent 35.3, Red Cell Distribution Width 13.2, Calcium Level 8.2 L Vital Signs Date Time Temp Pulse Resp B/P (MAP) Pulse Ox O2 Delivery O2 Flow Rate FiO2 05/13/17 12:06 98.7 94 18 160/100 (120) 94 Room Air 05/13/17 00:00 1.0 05/10/17 02:30 50 I&O- Last 24 Hours up to 6 AM 05/14/17 06:00 Intake Total 340 ml Output Total 400 ml Balance -60 ml NYASIA AGUILAR MD May 13, 2017 15:14
[2017-05-13] MEDS ORDERED: amLODIPine 5 MG TAB PO ONE (15:15)
[2017-05-13] MEDS ORDERED: LISINOPRIL 10 MG TAB PO ONE (15:30)
[2017-05-13] MEDS: FERROUS SULFATE 325MG TAB PO SCH ×2 (15:34→20:39)
[2017-05-13 16:00] VITALS: BP 160/98
[2017-05-13 20:00] VITALS: BP 140/78
--- NOTE | 2017-05-13 23:28 | ECGEPIP ---
Stationary ECG Study [facility] Test Date: 2017-05-13 Pat Name: RONALD ARORA Department: Room: J9636-40 Gender: M Dry Man: DALTON : 1940 Requested By: NYASIA AGUILAR Order Number: [id number] Reading MD: Yinka Falcon Measurements Intervals [place] Rate: 110 P: 79 DC: 222 QRS: 242 QRSD: 90 T: 38 QT: 333 QTc: 452 Interpretive Statements SINUS TACHYCARDIA WITH FIRST DEGREE AV BLOCK WITH OCCASIONAL VENTRICULAR PREMATURE COMPLEXES WITH OCCASIONAL SUPRAVENTRICULAR PREMATURE COMPLEXES MARKED RIGHT AXIS DEVIATION LOW QRS VOLTAGE IN EXTREMITY LEADS PATTERN CONSISTENT WITH PULMONARY DISEASE INFERIOR MYOCARDIAL INFARCTION, OF INDETERMINATE AGE COMPARED TO THE LAST TRACING ON 05/12/2017 AT 8:27:03, NO SIGNIFICANT CHANGES Electronically Signed On 05-13-2017 23:27:50 EDT by Yinka Falcon
[2017-05-13 23:59] VITALS: BP 131/78
[2017-05-14] MEDS: KCL 40MEQ IN D5/NS 1000ML 1,000 ML IV SCH ×2 (01:05→14:03)
[2017-05-14] MEDS: CIPROFLOXACIN 400 MG in APPROPRIATE DILUENT 1 EA IV SCH (01:06)
[2017-05-14] MEDS: metroNIDAZOLE 500 MG in APPROPRIATE DILUENT 1 EA IV SCH ×3 (02:14→21:44)
[2017-05-14] MEDS: ONDANSETRON 4MG/2ML VIAL (J2405) IV PRN ×2 (02:25→17:43)
[2017-05-14 04:00] VITALS: BP 131/80
[2017-05-14 05:44] LABS: BASO # 0.1 10^3/uL (0.0-0.2); BASO % 0.7 % (0.0-1.0); EOS % 0.4 % (0.0-3.0); IMMATURE GRANULOCYTE % 1.4 % (0-0); LYMPH # 0.5 10^3/uL (1.5-4.5); MEAN CORPUSCULAR HEMOGLOBIN 35.8 pg (27.0-33.0); MEAN CORPUSCULAR HGB CONC 34.6 g/dl (32.0-36.5); MEAN CORPUSCULAR VOLUME 103.4 fl (80.0-96.0); MONO # 0.5 10^3/uL (0.0-0.8); MONO % 6.9 % (0.0-5.0); NEUTROPHILS # 5.9 10^3/uL (1.8-7.7); NEUTROPHILS % 83.6 % (36.0-66.0); PLATELET COUNT, AUTOMATED 146 10^3/uL (150-450); RED CELL DISTRIBUTION WIDTH 13.4 % (11.5-14.5); WHITE BLOOD COUNT 7.1 10^3/uL (4.0-10.0)
[2017-05-14] MEDS: METOPROLOL TART 12.5 MG PER 1/2 TAB PO SCH ×4 (05:48→17:23)
[2017-05-14 06:11] LABS: ALBUMIN 2.2 GM/DL (3.2-5.2); ALKALINE PHOSPHATASE 42 U/L (45-117); ALT/SGPT 25 U/L (12-78); AST/SGOT 36 U/L (15-37); BILIRUBIN,TOTAL 0.7 MG/DL (0.2-1.0); CALCIUM LEVEL 8.1 MG/DL (8.8-10.2); CARBON DIOXIDE LEVEL 25 MEQ/L (21-32); CHLORIDE LEVEL 110 MEQ/L (98-107); GLUCOSE, FASTING 144 MG/DL (83-110)
[2017-05-14 06:37] LABS: BLOOD UREA NITROGEN 22 MG/DL (7-18)
[2017-05-14 06:44] LABS: ALBUMIN/GLOBULIN RATIO 0.81 (1.00-1.93); ANION GAP 6 MEQ/L (8-16); POTASSIUM SERUM 3.7 MEQ/L (3.5-5.1); SODIUM LEVEL 141 MEQ/L (136-145); TOTAL PROTEIN 4.9 GM/DL (6.4-8.2)
[2017-05-14 07:56] VITALS: BP 130/78
[2017-05-14] MEDS: amLODIPine 5 MG TAB PO SCH (08:11)
[2017-05-14] MEDS: FERROUS SULFATE 325MG TAB PO SCH ×3 (08:11→21:00)
[2017-05-14] MEDS: LISINOPRIL 10 MG TAB PO SCH (08:12)
--- NOTE | 2017-05-14 10:32 | IPNPDOC ---
Text Note Date of Service The patient was seen on 05/14/17. NOTE Subjective: Patient feels well. Denies any complaint. PHYSICAL EXAMINATION: Vitals: (see below) General: No acute distress, laying comfortably in bed. HEENT: Moist mucous membranes. Neck: No JVD or lymphadenopathy Cardiac: Tachycardic, No murmurs Pulm: Diminished breath sounds at the bases b/l. No wheezing, rhonchi Abd: Minimal Tenderness to palpation at the incision sites, that is intact with serous fluid. Mildly distended. No rigidity. Ext: No edema or cyanosis Alert and oriented 3. LABORATORY DATA: Please see below. Images CT abdomen and pelvis on 05/09/17 Impression: 1. Extensive sigmoid diverticulosis with bowel wall thickening and surrounding fluid as well as collection of free air along the mesenteric border of the sigmoid. The findings are suspicious for acute sigmoid diverticulitis with acute perforation. 2. There is moderate amount of diffuse free intraperitoneal air within the pelvis extending into the upper abdomen under the diaphragms bilaterally. 3. Small amount of abdominal and pelvic ascites. No discrete evidence of abscess. 4. The aortoiliac stent graft is grossly intact. 5. Simple cyst in the upper left kidney. ASSESSMENT/PLAN: 1. Sepsis secondary to Acute diverticulitis with perforation, status post exploratory laparotomy, now with colostomy. Pain is better controlled today. On Cipro/Flagyl. CRP elevated, improving. Afebrile. Lactic acidosis resolved. Blood culture negative. 2. Acute on chronic Thrombocytopenia- likely secondary to sepsis. Improved. Patient has had platelets down to 114 05/2015. No bleeding at this time. Status post 1 unit of platelets for epidural placement. The peripheral smear sent. 3. Delirium s/p surg, in an ICU setting. Likely 2/2 #1. Resolved. 3. History of Gastric ulcer on PPI 4. Hypertension uncontrolled -he has been restarted on lisinopril and amlodipine. 5. History of AAA repair 6. Status post PPM 7. Macrocytosis- B12 and folate ordered for the a.m. 8. Chronic anemia- stable. No need for transfusion at this time. Iron deficiency anemia. Started on ferrous sulfate. 9. Elevated troponin likely secondary to sepsis, significant tachycardia in the 160s the day 05/12, and hypertension. Echocardiogram pending. Troponin is trending down. Patient denies chest pain. No acute ST elevations. We'll start aspirin area statin. Will need outpatient evaluation with stress test for possible underlying ischemia when discharged. SCDs Prognosis guarded, however he has significantly improved since his exploratory laparotomy. VS,Fishbone, I+O VS, Fishbone, I+O Laboratory Tests 05/14/17 05:34 Red Blood Count 3.49 L, Mean Corpuscular Volume 103.4 H, Mean Corpuscular Hemoglobin 35.8 H, Mean Corpuscular Hemoglobin Concent 34.6, Red Cell Distribution Width 13.4, Neutrophils (%) (Auto) 83.6 H, Lymphocytes (%) (Auto) 7.0 L, Monocytes (%) (Auto) 6.9 H, Eosinophils (%) (Auto) 0.4, Basophils (%) ( Auto) 0.7, Neutrophils # (Auto) 5.9, Lymphocytes # (Auto) 0.5 L, Monocytes # ( Auto) 0.5, Eosinophils # (Auto) 0.0, Basophils # (Auto) 0.1, Calcium Level 8.1 L , Aspartate Amino Transf (AST/SGOT) 36, Alanine Aminotransferase (ALT/SGPT) 25, Alkaline Phosphatase 42 L, Total Bilirubin 0.7, Total Protein 4.9 L, Albumin 2.2 L Vital Signs Date Time Temp Pulse Resp B/P (MAP) Pulse Ox O2 Delivery O2 Flow Rate FiO2 05/14/17 08:12 130/78 05/14/17 08:11 87 05/14/17 07:56 98.0 20 93 Room Air 05/13/17 00:00 1.0 05/10/17 02:30 50 I&O- Last 24 Hours up to 6 AM 05/15/17 06:00 Intake Total 0 ml Output Total 0 ml Balance 0 ml NYASIA AGUILAR MD May 14, 2017 10:32
[2017-05-14] MEDS ORDERED: ATORVASTATIN 20 MG TAB PO ONE (11:00)
--- NOTE | 2017-05-14 11:40 | IPNPDOC ---
Subjective General Date/Time Seen The patient was seen on 05/14/17 at 09:26. Subject Chief Complaint/History The patient is a 76-year-old male admitted with a reason for visit of Perforated diverticulitis Vision appears to be more comfortable this morning. His epidural was removed because the catheter was broken. 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 No events overnight. Colostomy is not functioning yet. He denies nausea. Current Medications Current Medications Current Medications Acetaminophen (Tylenol Tab) 650 mg Q6HP PRN PO PAIN / FEVER Last administered on 05/13/17 00:48; Start 05/11/17 at 15:30; Stop 05/13/17 at 04:23; Status DC Albuterol/ Ipratropium (Duoneb (Ipr 0.5mg/Alb 2.5mg)) 3 ml Q2HP PRN NEB SOB/ WHEEZING; Start 05/10/17 at 00:45; Stop 05/13/17 at 04:23; Status DC Albuterol/ Ipratropium (Duoneb (Ipr 0.5mg/Alb 2.5mg)) 3 ml RQ6H NEB Last administered on 05/13/17 00:36; Start 05/10/17 at 02:00; Stop 05/13/17 at 04:23 ; Status DC Amlodipine Besylate (Norvasc) 5 mg DAILY PO ; Start 05/13/17 at 09:00; Stop 05/13/17 at 09:00; Status DC Amlodipine Besylate (Norvasc) 5 mg DAILY PO Last administered on 05/14/17 08: 11; Start 05/14/17 at 09:00; Stop 06/13/17 at 08:59 Aspirin (Ecotrin) 81 mg DAILY PO ; Start 05/14/17 at 09:00; Stop 06/13/17 at 08: 59 Atorvastatin Calcium (Lipitor) 40 mg DAILY PO ; Start 05/15/17 at 09:00; Stop 06/14/17 at 08:59 Bupivacaine HCl/ Sodium Chloride 250 ml @ 14 mls/hr [id number] EPIDURAL Last administered on 05/13/17 04:15; Start 05/12/17 at 09:00; Stop 05/14/17 at 09:06 ; Status DC Ciprofloxacin 400 mg/IV Miscellaneous Supplies 200 ml @ 200 mls/hr Q12H IV ; Start 05/10/17 at 00:45; Stop 05/10/17 at 00:58; Status DC Ciprofloxacin 400 mg/IV Miscellaneous Supplies 200 ml @ 200 mls/hr Q12H IV Last administered on 05/13/17 00:43; Start 05/10/17 at 01:00; Stop 05/13/17 at 04:23; Status DC Ciprofloxacin 400 mg/IV Miscellaneous Supplies 200 ml @ 200 mls/hr Q12H IV Last administered on 05/14/17 01:06; Start 05/13/17 at 13:00; Stop 05/20/17 at 12:59 Dextrose/Sodium Chloride 1,000 ml @ 80 mls/hr [id number] IV Last administered on 05/13/17 10:08; Start 05/13/17 at 09:45; Stop 05/13/17 at 10:43; Status DC Diltiazem HCl 125 mg/Sodium Chloride 125 ml @ 10 mls/hr [id number] IV ; Start 05/13/17 at 01:30; Stop 05/13/17 at 03:08; Status DC Diphenhydramine HCl (Benadryl) 12.5 mg Q4HP PRN IV ITCHING; Start 05/10/17 at 00:45; Stop 05/11/17 at 19:21; Status DC Diphenhydramine HCl (Benadryl) 12.5 mg Q4HP PRN IV ITCHING; Start 05/11/17 at 19:30; Stop 05/12/17 at 08:41; Status DC Diphenhydramine HCl (Benadryl) 12.5 mg Q4HP PRN IV ITCHING; Start 05/12/17 at 09:00; Stop 05/13/17 at 04:23; Status DC Diphenhydramine HCl (Benadryl) 12.5 mg Q4HP PRN IV ITCHING; Start 05/13/17 at 14:15; Stop 05/20/17 at 14:14 Fentanyl Citrate (Sublimaze) 25 mcg Q5MP PRN IV MODERATE PAIN (PS 4-7); Start 05/10/17 at 01:30; Stop 05/10/17 at 03:00; Status DC Fentanyl Citrate (Sublimaze) 50 mcg ASDIRECTED PRN IV PAIN Last administered on 05/11/17 19:00; Start 05/11/17 at 19:30; Stop 05/11/17 at 19:40; Status DC Fentanyl/ Bupivacaine HCl 250 ml @ 10 mls/hr Q24H EPIDURAL Last administered on 05/11/17 20:27; Start 05/11/17 at 19:30; Stop 05/12/17 at 08:40; Status DC Ferrous Sulfate (Ferrous Sulfate) 325 mg TID PO Last administered on 05/14/17 08:11; Start 05/13/17 at 16:00; Stop 06/12/17 at 15:59 Home Med (Med Rec Complete!) ASDIRECTED XX ; Start 05/09/17 at 22:00; Stop 05/09/17 at 22:02; Status DC Hydromorphone HCl (Dilaudid) 0.2 mg Q5MP PRN IV MODERATE/SEVERE PAIN (PS 7-10) Last administered on 05/10/17 02:20; Start 05/10/17 at 01:30; Stop 05/10/17 at 03:00; Status DC Labetalol HCl (Normodyne, Trandate) 5 mg Q5MP PRN IV TITRATE SBP<170,DBP<90; Start 05/10/17 at 01:30; Stop 05/10/17 at 03:00; Status DC Lactated Ringer's 1,000 ml @ 125 mls/hr Q8H IV ; Start 05/10/17 at 01:30; Stop 05/10/17 at 03:00; Status DC Lisinopril (Prinivil) 5 mg DAILY PO Last administered on 05/11/17 08:13; Start 05/10/17 at 09:00; Stop 05/12/17 at 08:04; Status DC Lisinopril (Prinivil) 10 mg DAILY PO Last administered on 05/12/17 09:21; Start 05/12/17 at 09:00; Stop 05/13/17 at 04:23; Status DC Lisinopril (Prinivil) 10 mg DAILY PO Last administered on 05/14/17 08:12; Start 05/14/17 at 09:00; Stop 06/13/17 at 08:59 Lorazepam (Ativan) 0.5 mg Q4HP PRN PO ANXIETY; Start 05/13/17 at 04:30; Stop 05/20/17 at 04:29 Metoclopramide HCl (REGLAN INJection) 10 mg Q6HP PRN IV NAUSEA OR VOMITING; Start 05/10/17 at 00:45; Stop 05/13/17 at 04:23; Status DC Metoclopramide HCl (REGLAN INJection) 10 mg Q6HP PRN IV NAUSEA; Start 05/11/17 at 19:30; Stop 05/12/17 at 08:41; Status DC Metoclopramide HCl (REGLAN INJection) 10 mg Q6HP PRN IV NAUSEA; Start 05/12/17 at 09:00; Stop 05/13/17 at 04:23; Status DC Metoprolol Tartrate (Lopressor) 5 mg STAT STAT IV Last administered on 10:08; Start 05/13/17 at 09:43; Stop 05/13/17 at 09:45; Status DC Metoprolol Tartrate (Lopressor) 12.5 mg Q6H PO Last administered on 05/14/17 05:48; Start 05/13/17 at 12:00; Stop 06/12/17 at 11:59 Metronidazole 500 mg/IV Miscellaneous Supplies 100 ml @ 100 mls/hr Q8H IV Last administered on 05/12/17 20:00; Start 05/10/17 at 05:00; Stop 05/13/17 at 04:23; Status DC Metronidazole 500 mg/IV Miscellaneous Supplies 100 ml @ 100 mls/hr Q8H IV Last administered on 05/14/17 10:30; Start 05/13/17 at 10:00; Stop 05/20/17 at 09:59 Midazolam HCl (Versed) 1 mg ASDIRECTED PRN IV ANXIETY Last administered on 05/11 19:00; Start 05/11/17 at 19:30; Stop 05/11/17 at 19:40; Status DC Morphine Sulfate (Morphine Sulfate In 0.9%Nacl Iv Bag) ASDIRECTED PRN IV SEE LABEL COMMENTS Last administered on 05/13/17 14:54; Start 05/13/17 at 14:15; Stop 05/20/17 at 14:14 Morphine Sulfate (Morphine Sulfate In 0.9%Nacl Iv Bag) Concentration 1 mg/ml ASDIRECTED PRN IV SEE LABEL COMMENTS Last administered on 05/11/17 00:46; Start 05/10/17 at 00:45; Stop 05/11/17 at 19:21; Status DC Morphine Sulfate (Morphine Sulfate Inj) 1 mg Q1HP PRN IV SEVERE PAIN (PS 8-10) Last administered on 05/13/17 05:28; Start 05/13/17 at 04:30; Stop 05/13/17 at 14:05; Status DC Morphine Sulfate (Morphine Sulfate Inj) 4 mg Q15M PRN IV MODERATE/SEVERE PAIN ( PS 5-10) Last administered on 05/09/17 20:50; Start 05/09/17 at 20:00; Stop at 20:51; Status DC Nalbuphine HCl (Nubain) 2.5 mg Q6HP PRN IV PRURITIS; Start 05/10/17 at 00:45; Stop 05/11/17 at 19:21; Status DC Nalbuphine HCl (Nubain) 2.5 mg Q6HP PRN IV PRURITIS; Start 05/13/17 at 14:15; Stop 05/20/17 at 14:14 Naloxone HCl (Narcan) 0.1 mg Q5MP PRN IV SEE LABEL COMMENTS; Start 05/10/17 at 00:45; Stop 05/11/17 at 19:21; Status DC Naloxone HCl (Narcan) 0.1 mg Q5MP PRN IV SEE LABEL COMMENTS; Start 05/11/17 at 19:30; Stop 05/12/17 at 08:41; Status DC Naloxone HCl (Narcan) 0.1 mg Q5MP PRN IV SEE LABEL COMMENTS; Start 05/12/17 at 09:00; Stop 05/13/17 at 04:23; Status DC Naloxone HCl (Narcan) 0.1 mg Q5MP PRN IV SEE LABEL COMMENTS; Start 05/13/17 at 14:15; Stop 05/20/17 at 14:14 Non-Formulary Medication (Epidural/VECTOR CONTROL SPECIALIST [place]) 1 each ASDIRECTED PRN XX SEE LABEL COMMENTS; Start 05/11/17 at 19:30; Stop 05/12/17 at 08:41; Status DC Non-Formulary Medication (Epidural/VECTOR CONTROL SPECIALIST [place]) 1 each ASDIRECTED PRN XX SEE LABEL COMMENTS; Start 05/12/17 at 09:00; Stop 05/13/17 at 04:23; Status DC Non-Formulary Medication (Epidural/VECTOR CONTROL SPECIALIST [place]) USE THIS ENTRY TO VEND ... ASDIRECTED PRN XX SEE LABEL COMMENTS; Start 05/13/17 at 14:15; Stop 06/12/17 at 14:14 Non-Formulary Medication (Epidural/VECTOR CONTROL SPECIALIST [place]) USE THIS ENTRY TO VEND ... Q1M PRN XX SEE LABEL COMMENTS; Start 05/10/17 at 00:45; Stop 05/11/17 at 19:21; Status DC Non-Formulary Medication ([place]) ASDIRECTED PRN XX SEE LABEL COMMENTS; Start 05/11/17 at 19:30; Stop 05/12/17 at 08:41; Status DC Non-Formulary Medication ([place]) ASDIRECTED PRN XX SEE LABEL COMMENTS; Start 05/12/17 at 09:00; Stop 05/13/17 at 04:23; Status DC Ondansetron HCl (ZOFRAN INJection) 4 mg Q4HP PRN IV NAUSEA OR VOMITING; Start 05/10/17 at 01:30; Stop 05/10/17 at 03:00; Status DC Ondansetron HCl (ZOFRAN INJection) 4 mg Q6HP PRN IV NAUSEA; Start 05/10/17 at 00:45; Stop 05/10/17 at 00:58; Status DC Ondansetron HCl (ZOFRAN INJection) 4 mg Q6HP PRN IV NAUSEA OR VOMITING; Start 05/10/17 at 00:45; Stop 05/13/17 at 04:23; Status DC Ondansetron HCl (ZOFRAN INJection) 4 mg Q6HP PRN IV REFRACTORY NAUSEA; Start 05/11/17 at 19:30; Stop 05/12/17 at 08:41; Status DC Ondansetron HCl (ZOFRAN INJection) 4 mg Q6HP PRN IV REFRACTORY NAUSEA; Start 05/12/17 at 09:00; Stop 05/13/17 at 04:23; Status DC Ondansetron HCl (ZOFRAN INJection) 4 mg Q6HP PRN IV NAUSEA Last administered on 05/14/17t 02:25; Start 05/13/17 at 14:15; Stop 05/20/17 at 14:14 Pantoprazole Sodium (Protonix) 40 mg DAILY IV Last administered on 05/12/17 09 :20; Start 05/10/17 at 09:00; Stop 05/13/17 at 04:23; Status DC Patient Own Medication (Patient'S Own Med) Biotene MOUTH SPR... Q2HP PRN PO DRYNESS Last administered on 05/12/17 20:00; Start 05/10/17 at 17:30; Stop 05/13/17 at 04:23; Status DC Potassium Chloride 1,000 ml @ 80 mls/hr [id number] IV Last administered on 01:05; Start 05/13/17 at 11:00; Stop 06/12/17 at 10:59 Promethazine HCl (PHENERGAN INJection) 12.5 mg Q6HP PRN IV NAUSEA; Start at 00:45; Stop 05/13/17 at 04:23; Status DC Sodium Chloride 1,000 ml @ 15 mls/hr Q24H IV ; Start 05/10/17 at 00:44; Stop 05/10/17 at 01:51; Status DC Sodium Chloride 1,000 ml @ 25 mls/hr Q24H IV Last administered on 05/12/17 17 :59; Start 05/10/17 at 00:44; Stop 05/13/17 at 04:23; Status DC Allergies Coded Allergies: No Known Allergies (Unverified , 12/24/13) Objective Physical Examination Examination GENERAL APPEARANCE: Patient relatively comfortable, laying in bed, awake, alert , oriented. SKIN: Warm and dry. HEENT: Mildly pale palpebral conjunctiva, and its are dry. NECK: No jugular venous distention. LUNGS: Clear to auscultation bilaterally. No wheezing appreciated. HEART: Slightly tachycardic, regular rhythm. ABDOMEN: Abdomen is moderately distended, round, soft, hypoactive bowel sounds. Left lower quadrant ostomy swollen but viable pink, serosanguineous fluid in the bag with a small amount of air.. EXTREMITIES: No edema. Vital Signs Vital Signs Date Time Temp Pulse Resp B/P (MAP) Pulse Ox O2 Delivery O2 Flow Rate FiO2 05/14/17 08:12 130/78 05/14/17 08:11 87 05/14/17 07:56 98.0 20 93 Room Air 05/13/17 00:00 1.0 05/10/17 02:30 50 I&Os I&O- Last 24 Hours up to 6 AM 05/15/17 06:00 Intake Total 100 ml Output Total 265 ml Balance -165 ml Laboratory Data Labs 24H Laboratory Tests 2 05/13/17 17:42: Total Creatine Kinase 493H, Creatine Kinase MB 8.6H, Creatine Kinase MB Relative Index 1.74, Troponin I 1.69#*H 05/14/17 01:48: Total Creatine Kinase 338H, Creatine Kinase MB 5.6H, Creatine Kinase MB Relative Index 1.65, Troponin I 1.54*H 05/14/17 05:34: Immature Granulocyte % (Auto) 1.4H, White Blood Count 7.1, Red Blood Count 3.49L , Hemoglobin 12.5L, Hematocrit 36.1L, Mean Corpuscular Volume 103.4H, Mean Corpuscular Hemoglobin 35.8H, Mean Corpuscular Hemoglobin Concent 34.6, Red Cell Distribution Width 13.4, Platelet Count 146L, Neutrophils (%) (Auto) 83.6H , Lymphocytes (%) (Auto) 7.0L, Monocytes (%) (Auto) 6.9H, Eosinophils (%) (Auto ) 0.4, Basophils (%) (Auto) 0.7, Neutrophils # (Auto) 5.9, Lymphocytes # (Auto) 0.5L, Monocytes # (Auto) 0.5, Eosinophils # (Auto) 0.0, Basophils # (Auto) 0.1, Immature Granulocyte # (Auto) 0.1H, Nucleated Red Blood Cells % (auto) 0.0, Anion Gap 6L, Blood Urea Nitrogen 22H, Creatinine 0.70, Sodium Level 141, Potassium Level 3.7, Chloride Level 110H, Carbon Dioxide Level 25, Calcium Level 8.1L, Aspartate Amino Transf (AST/SGOT) 36, Alanine Aminotransferase (ALT/ SGPT) 25, Alkaline Phosphatase 42L, Total Bilirubin 0.7, Total Protein 4.9L, Albumin 2.2L, Magnesium Level 2.0, Albumin/Globulin Ratio 0.81L CBC/BMP Laboratory Tests 05/14/17 05:34 Red Blood Count 3.49 L, Mean Corpuscular Volume 103.4 H, Mean Corpuscular Hemoglobin 35.8 H, Mean Corpuscular Hemoglobin Concent 34.6, Red Cell Distribution Width 13.4, Neutrophils (%) (Auto) 83.6 H, Lymphocytes (%) (Auto) 7.0 L, Monocytes (%) (Auto) 6.9 H, Eosinophils (%) (Auto) 0.4, Basophils (%) ( Auto) 0.7, Neutrophils # (Auto) 5.9, Lymphocytes # (Auto) 0.5 L, Monocytes # ( Auto) 0.5, Eosinophils # (Auto) 0.0, Basophils # (Auto) 0.1, Calcium Level 8.1 L , Aspartate Amino Transf (AST/SGOT) 36, Alanine Aminotransferase (ALT/SGPT) 25, Alkaline Phosphatase 42 L, Total Bilirubin 0.7, Total Protein 4.9 L, Albumin 2.2 L Microbiology Microbiology 05/11/17 Blood Culture - Preliminary, Resulted No Growth after 72 hours. All specime... 05/11/17 Blood Culture - Preliminary, Resulted No Growth after 72 hours. All specime... Impression Perforated diverticulitis status post sigmoid colectomy with colostomy, [place]' s pouch postop day 4 He had some issue with regards to delirium Monday evening. He seems to be oriented for the past 2 days. He seems to understand what is going on around him and is more cooperative. 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 He seems to be okay with that I will allow him some clear liquids today try and see if he can estimate that gut to work. He had some tachycardia Monday which probably prompted the delirium. He did have some slight bump in his troponin but this has trended down. He is not having any chest pains. The hospitalist once to start him on aspirin and this should be fine. PT for ambulation. Plan / VTE VTE Prophylaxis Ordered?: Yes Plan / Urinary Catheter Urinary Catheter: D/C Flower Reason for insertion/continuin: Perioperative RADHA ABDI MD May 14, 2017 11:40
[2017-05-14] MEDS: ASPIRIN 81 MG ENTERIC TAB PO SCH (11:56)
--- NOTE | 2017-05-14 13:53 | ECHO ---
DATE OF PROCEDURE: 05/13/2017 DATE OF : 1940 AGE: 76 REFERRING PROVIDER: Dr. Silverio Mayo PATIENT LOCATION: Room 3227 REASON FOR THE ECHOCARDIOGRAM: Abnormal EKG. 2D MEASUREMENTS: IVS: 1.2 cm. LV: 4.4 cm. LVPW: 1.1 cm. LA: 3.0 cm. Aorta: 3.9 cm. DOPPLER MEASUREMENTS: Peak velocity across the aortic valve: 0.8 m/s. Peak velocity across the LVOT: 0.6 m/s. Mitral E: 1.0, maximum tricuspid valve velocity 2.6 m/s. 2D COMMENTS: 1. Technically limited study due to poor acoustic window. 2. The left ventricular size is normal, as well as left ventricular wall thickness and systolic function. The estimated global left ventricular systolic ejection fraction is 65 to 70%. 3. Normal left atrium. Normal right atrium and right ventricle noted in limited views. 4. The atrial septum appeared to be normal without evidence of defect or shunt. 5. Mildly enlarged aortic root at 3.9 cm. 6. No pericardial effusion seen. 7. Minimally calcified aortic valve with normal leaflet excursion. Normal mitral valve and tricuspid valve. The pulmonic valve and proximal pulmonary artery branches were not well visualized. 7. The inferior vena cava was not visualized. DOPPLER: It detects trace mitral and mild tricuspid regurgitation. The calculated pulmonary artery systolic pressure varied between 30 to 40 mmHg. Assessment of the left ventricular diastolic function was limited. The patient appeared to be in atrial fibrillation during the test but with a controlled ventricular rate. IMPRESSION: 1. Technically limited study due to poor acoustic window. 2. Normal global left ventricular systolic function. 3. Aortic valve sclerosis without stenosis or aortic regurgitation. 4. Trace mitral regurgitation. 5. Mild tricuspid regurgitation with probably mild pulmonary hypertension. MTDD
[2017-05-14] MEDS ORDERED: metroNIDAZOLE (FLAGYL) 500 MG TAB PO SCH (14:00)
[2017-05-14 16:00] VITALS: BP 129/78
[2017-05-14] MEDS ORDERED: CIPROFLOXACIN 500 MG TAB PO SCH (18:00)
[2017-05-14] MEDS: PANTOPRAZOLE 40MG INJ (PROTONIX) (C9113) IV SCH (18:06)
[2017-05-14 19:13] VITALS: BP 116/67
[2017-05-14 20:30] VITALS: BP 128/78
--- NOTE | 2017-05-14 21:01 | ECGEPIP ---
Stationary ECG Study [facility] Test Date: 2017-05-13 Pat Name: RONALD ARORA Department: PCU Room: T1408-20 Gender: M Market Master: SUSAN : 1940 Requested By: NYASIA AGUILAR Order Number: [id number] Reading MD: Yinka Falcon Measurements Intervals [place] Rate: 97 P: 257 CO: 175 QRS: -44 QRSD: 93 T: 148 QT: 369 QTc: 469 Interpretive Statements SINUS RHYTHM WITH SINUS ARRHYTHMIA. ISOLATED PVCs BORDERLINE FIRST DEGREE AV BLOCK LOW QRS VOLTAGE IN EXTREMITY LEADS POSSIBLE ANTERIOR MYOCARDIAL INFARCTION, OF INDETERMINATE AGE. SECONDARY TO LEAD MISPLACEMENT INFERIOR MYOCARDIAL INFARCTION, PROBABLY OLD LAST TRACING ON 05/13/2017 AT 10:12:20, THERE WAS BETTER R-WAVE PROGRESSION AND LEFT AXIS DEVIATION, WELL SINUS TACHYCARDIA Electronically Signed On 05-14-2017 21:00:53 EDT by Yinka Falcon
[2017-05-14 23:59] VITALS: BP 120/74
[2017-05-15] MEDS: METOPROLOL TART 12.5 MG PER 1/2 TAB PO SCH ×4 (00:37→18:22)
[2017-05-15] MEDS: KCL 40MEQ IN D5/NS 1000ML 1,000 ML IV SCH ×2 (02:30→15:57)
[2017-05-15 04:00] VITALS: BP 128/79
[2017-05-15] MEDS: metroNIDAZOLE 500 MG in APPROPRIATE DILUENT 1 EA IV SCH ×3 (05:10→21:47)
[2017-05-15 05:19] LABS: BASO % 0.5 % (0.0-1.0); EOS # 0.1 10^3/uL (0.0-0.50); EOS % 1.8 % (0.0-3.0); IMMATURE GRANULOCYTE % 2.5 % (0-0); LYMPH # 0.7 10^3/uL (1.5-4.5); LYMPH % 12.2 % (24.0-44.0); MEAN CORPUSCULAR HEMOGLOBIN 35.6 pg (27.0-33.0); MEAN CORPUSCULAR VOLUME 104.7 fl (80.0-96.0); MONO # 0.4 10^3/uL (0.0-0.8); NEUTROPHILS # 4.3 10^3/uL (1.8-7.7); PLATELET COUNT, AUTOMATED 134 10^3/uL (150-450); RED CELL DISTRIBUTION WIDTH 13.6 % (11.5-14.5); WHITE BLOOD COUNT 5.6 10^3/uL (4.0-10.0)
[2017-05-15 05:48] LABS: ALBUMIN 2.2 GM/DL (3.2-5.2); ALBUMIN/GLOBULIN RATIO 0.88 (1.00-1.93); ALKALINE PHOSPHATASE 37 U/L (45-117); ALT/SGPT 21 U/L (12-78); ANION GAP 5 MEQ/L (8-16); AST/SGOT 26 U/L (15-37); BILIRUBIN,TOTAL 0.6 MG/DL (0.2-1.0); BLOOD UREA NITROGEN 19 MG/DL (7-18); CALCIUM LEVEL 7.6 MG/DL (8.8-10.2); CARBON DIOXIDE LEVEL 25 MEQ/L (21-32); CHLORIDE LEVEL 113 MEQ/L (98-107); CREATININE FOR GFR 0.67 MG/DL (0.70-1.30); GLOMERULAR FILTRATION RATE > 60.0 (>42); GLUCOSE, FASTING 124 MG/DL (83-110); POTASSIUM SERUM 3.9 MEQ/L (3.5-5.1); SODIUM LEVEL 143 MEQ/L (136-145); TOTAL PROTEIN 4.7 GM/DL (6.4-8.2)
[2017-05-15] MEDS: CIPROFLOXACIN 400 MG in APPROPRIATE DILUENT 1 EA IV SCH ×2 (06:36→18:23)
[2017-05-15 08:00] VITALS: BP 133/74
[2017-05-15] MEDS: ONDANSETRON 4MG/2ML VIAL (J2405) IV PRN (08:02)
[2017-05-15] MEDS: PANTOPRAZOLE 40MG INJ (PROTONIX) (C9113) IV SCH (08:02)
--- NOTE | 2017-05-15 09:23 | IPNPDOC ---
Date Seen The patient was seen on 05/15/17. Progress Note At 76-year-old man 6 days status post sigmoid colectomy and colostomy. Patient' s pain is controlled with JUDICIAL LAW CLERK pump. Over the weekend patient was afebrile. Patient's epidural came out over the weekend because he was moving around too much in bed. Epidural was not replaced. When asked about his pain is morning patient stated that his pain is OBJECTIVE PHYSICAL EXAMINATION: VITAL SIGNS: Please see below. GENERAL: Alert, orientated to person and place CARDIOVASCULAR: S1 and S2 present, no murmurs RESPIRATORY: CTAB ABDOMINAL: Small stool content in colostomy bag. No other discharge noted in colostomy bag. LABORATORY DATA: Please see below. MICROBIOLOGY: Please see below. ASSESSMENT AND PLAN: A 76 year old male 6 days status post ex lap with colectomy and colostomy placement. PROBLEMS: 1. Fluid status: Pt is maintaining proper urinary output, we'll continue to monitor patient I's and O's 2. Infection: Pt is on antibiotics for perforated bowel 3. Flower Catheter: In place 4. Pain: JUDICIAL LAW CLERK is on board for pain management 5. Thrombocytopenia: Medicine is on board and is managing. He was started on aspirin by medicine for DVT prophylaxis 6. Diet: Patient is clear liquid diet. We'll continue to monitor how patient tolerates it and monitor bowel function via the ostomy bag VS, I&O, 24H, Mal Vital Signs/I&O Vital Signs Date Time Temp Pulse Resp B/P (MAP) Pulse Ox O2 Delivery O2 Flow Rate FiO2 05/15/17 08:00 98.4 86 18 133/74 (93) 92 Room Air 05/13/17 00:00 1.0 05/10/17 02:30 50 I&O- Last 24 Hours up to 6 AM 05/16/17 05:59 Intake Total 760 ml Output Total 400 ml Balance 360 ml Laboratory Data 24H LABS Laboratory Tests 2 05/15/17 04:51: Immature Granulocyte % (Auto) 2.5H, White Blood Count 5.6, Red Blood Count 3.40L , Hemoglobin 12.1L, Hematocrit 35.6L, Mean Corpuscular Volume 104.7H, Mean Corpuscular Hemoglobin 35.6H, Mean Corpuscular Hemoglobin Concent 34.0, Red Cell Distribution Width 13.6, Platelet Count 134L, Neutrophils (%) (Auto) 76.0H , Lymphocytes (%) (Auto) 12.2L, Monocytes (%) (Auto) 7.0H, Eosinophils (%) (Auto ) 1.8, Basophils (%) (Auto) 0.5, Neutrophils # (Auto) 4.3, Lymphocytes # (Auto) 0.7L, Monocytes # (Auto) 0.4, Eosinophils # (Auto) 0.1, Basophils # (Auto) 0.0, Immature Granulocyte # (Auto) 0.1H, Nucleated Red Blood Cells % (auto) 0.0, Anion Gap 5L, Glomerular Filtration Rate > 60.0, Blood Urea Nitrogen 19H, Creatinine 0.67L, Sodium Level 143, Potassium Level 3.9, Chloride Level 113H, Carbon Dioxide Level 25, Calcium Level 7.6L, Aspartate Amino Transf (AST/SGOT) 26, Alanine Aminotransferase (ALT/SGPT) 21, Total Creatine Kinase 170, Alkaline Phosphatase 37L, Total Bilirubin 0.6, Total Protein 4.7L, Albumin 2.2L, Magnesium Level 2.0, Creatine Kinase MB 3.3, Creatine Kinase MB Relative Index 1.94, Troponin I 0.69#H, Albumin/Globulin Ratio 0.88L CBC/BMP Laboratory Tests 05/15/17 04:51 Red Blood Count 3.40 L, Mean Corpuscular Volume 104.7 H, Mean Corpuscular Hemoglobin 35.6 H, Mean Corpuscular Hemoglobin Concent 34.0, Red Cell Distribution Width 13.6, Neutrophils (%) (Auto) 76.0 H, Lymphocytes (%) (Auto) 12.2 L, Monocytes (%) (Auto) 7.0 H, Eosinophils (%) (Auto) 1.8, Basophils (%) ( Auto) 0.5, Neutrophils # (Auto) 4.3, Lymphocytes # (Auto) 0.7 L, Monocytes # ( Auto) 0.4, Eosinophils # (Auto) 0.1, Basophils # (Auto) 0.0, Calcium Level 7.6 L , Aspartate Amino Transf (AST/SGOT) 26, Alanine Aminotransferase (ALT/SGPT) 21, Total Creatine Kinase 170, Alkaline Phosphatase 37 L, Total Bilirubin 0.6, Total Protein 4.7 L, Albumin 2.2 L Microbiology Microbiology 05/11/17 Blood Culture - Preliminary, Resulted No Growth after 72 hours. All specime... 05/11/17 Blood Culture - Preliminary, Resulted No Growth after 72 hours. All specime... GME ATTESTATION GME ATTESTATION My preceptor for this patient encounter was physically present in the building during the encounter and was fully available. As needed, all aspects of the patient interview, examination, medical decision making process, and medical care plan development were reviewed and approved by the preceptor. Preceptor is aware and concurs with the plan as stated in the body of this note and will attest to such by his/her cosignature. VIOLETTA RODRIGUEZ DO May 15, 2017 09:23
[2017-05-15] MEDS: ASPIRIN 81 MG ENTERIC TAB PO SCH (10:17)
[2017-05-15] MEDS: LISINOPRIL 10 MG TAB PO SCH (10:18)
[2017-05-15] MEDS: amLODIPine 5 MG TAB PO SCH (10:18)
[2017-05-15] MEDS: ATORVASTATIN 20 MG TAB PO SCH (10:24)
[2017-05-15] MEDS: FERROUS SULFATE 325MG TAB PO SCH ×3 (10:24→21:47)
[2017-05-15 12:00] VITALS: BP 127/65
--- NOTE | 2017-05-15 14:38 | IPNPDOC ---
Text Note Date of Service The patient was seen on 05/15/17. NOTE Subjective: Patient feels well. Had epidural removed yesterday. Has some pain at the incision sites. PHYSICAL EXAMINATION: Vitals: (see below) General: No acute distress, laying comfortably in bed. HEENT: Moist mucous membranes. Neck: No JVD or lymphadenopathy Cardiac: Tachycardic, No murmurs Pulm: Diminished breath sounds at the bases b/l. No wheezing, rhonchi Abd: Minimal Tenderness to palpation at the incision sites, that is intact with serous fluid. Mildly distended. No rigidity. Has outpt from ostomy. Ext: No edema or cyanosis Alert and oriented 3. LABORATORY DATA: Please see below. Images CT abdomen and pelvis on 05/09/17 Impression: 1. Extensive sigmoid diverticulosis with bowel wall thickening and surrounding fluid as well as collection of free air along the mesenteric border of the sigmoid. The findings are suspicious for acute sigmoid diverticulitis with acute perforation. 2. There is moderate amount of diffuse free intraperitoneal air within the pelvis extending into the upper abdomen under the diaphragms bilaterally. 3. Small amount of abdominal and pelvic ascites. No discrete evidence of abscess. 4. The aortoiliac stent graft is grossly intact. 5. Simple cyst in the upper left kidney. ASSESSMENT/PLAN: 1. Sepsis secondary to Acute diverticulitis with perforation, status post exploratory laparotomy, now with colostomy. Pain is better controlled today. On Cipro/Flagyl. CRP elevated, improving. Afebrile. Lactic acidosis resolved. Blood culture negative. 2. Acute on chronic Thrombocytopenia- likely secondary to sepsis. Improved. Patient has had platelets down to 114 05/2015. No bleeding at this time. Status post 1 unit of platelets for epidural placement. The peripheral smear sent. 3. Delirium s/p surg, in an ICU setting. Likely 2/2 #1. Resolved. 3. History of Gastric ulcer on PPI 4. Hypertension uncontrolled -he has been restarted on lisinopril and amlodipine. 5. History of AAA repair 6. Status post PPM 7. Macrocytosis- B12 and folate ordered for the a.m. 8. Chronic anemia- stable. No need for transfusion at this time. Iron deficiency anemia. Started on ferrous sulfate. 9. Elevated troponin likely secondary to sepsis, significant tachycardia in the 160s the day 05/12, and hypertension. Echocardiogram pending. Troponin is trending down. Patient denies chest pain. No acute ST elevations. Cont aspirin and statin. Will need outpatient evaluation with stress test for possible underlying ischemia when discharged. SCDs Prognosis guarded, however he has significantly improved since his exploratory laparotomy. VS,Fishbone, I+O VS, Fishbone, I+O Laboratory Tests 05/15/17 04:51 Red Blood Count 3.40 L, Mean Corpuscular Volume 104.7 H, Mean Corpuscular Hemoglobin 35.6 H, Mean Corpuscular Hemoglobin Concent 34.0, Red Cell Distribution Width 13.6, Neutrophils (%) (Auto) 76.0 H, Lymphocytes (%) (Auto) 12.2 L, Monocytes (%) (Auto) 7.0 H, Eosinophils (%) (Auto) 1.8, Basophils (%) ( Auto) 0.5, Neutrophils # (Auto) 4.3, Lymphocytes # (Auto) 0.7 L, Monocytes # ( Auto) 0.4, Eosinophils # (Auto) 0.1, Basophils # (Auto) 0.0, Calcium Level 7.6 L , Aspartate Amino Transf (AST/SGOT) 26, Alanine Aminotransferase (ALT/SGPT) 21, Total Creatine Kinase 170, Alkaline Phosphatase 37 L, Total Bilirubin 0.6, Total Protein 4.7 L, Albumin 2.2 L Vital Signs Date Time Temp Pulse Resp B/P (MAP) Pulse Ox O2 Delivery O2 Flow Rate FiO2 05/15/17 12:00 98.0 69 18 127/65 (85) 94 Room Air 05/13/17 00:00 1.0 05/10/17 02:30 50 I&O- Last 24 Hours up to 6 AM 05/16/17 06:00 Intake Total 620 ml Balance 620 ml NYASIA AGUILAR MD May 15, 2017 14:37
[2017-05-15 16:00] VITALS: BP 134/71
[2017-05-15] MEDS ORDERED: SLF 3 ML SYR IV PRN (19:00)
[2017-05-15 20:00] VITALS: BP 105/71
[2017-05-15] MEDS: SLF 3 ML SYR IV SCH (21:47)
[2017-05-16] VITALS: BP 123/75
[2017-05-16] MEDS: METOPROLOL TART 12.5 MG PER 1/2 TAB PO SCH ×4 (00:14→18:44)
[2017-05-16] MEDS: ONDANSETRON 4MG/2ML VIAL (J2405) IV PRN ×2 (00:18→09:48)
[2017-05-16] MEDS: KCL 40MEQ IN D5/NS 1000ML 1,000 ML IV SCH (05:10)
[2017-05-16] MEDS ORDERED: OMEPRAZOLE 20 MG CAP PO ONE (05:45)
[2017-05-16] MEDS: metroNIDAZOLE 500 MG in APPROPRIATE DILUENT 1 EA IV SCH ×3 (05:58→21:22)
[2017-05-16] MEDS: CIPROFLOXACIN 400 MG in APPROPRIATE DILUENT 1 EA IV SCH ×2 (05:58→18:44)
[2017-05-16] MEDS: SLF 3 ML SYR IV SCH ×3 (05:59→21:22)
[2017-05-16 06:03] LABS: BASO % 0.8 % (0.0-1.0); EOS # 0.1 10^3/uL (0.0-0.50); EOS % 2.5 % (0.0-3.0); IMMATURE GRANULOCYTE % 4.8 % (0-0); LYMPH # 0.5 10^3/uL (1.5-4.5); LYMPH % 11.3 % (24.0-44.0); MEAN CORPUSCULAR HEMOGLOBIN 35.8 pg (27.0-33.0); MONO # 0.4 10^3/uL (0.0-0.8); MONO % 8.2 % (0.0-5.0); NEUTROPHILS # 3.4 10^3/uL (1.8-7.7); NEUTROPHILS % 72.4 % (36.0-66.0); PLATELET COUNT, AUTOMATED 124 10^3/uL (150-450); RED CELL DISTRIBUTION WIDTH 13.5 % (11.5-14.5); WHITE BLOOD COUNT 4.8 10^3/uL (4.0-10.0)
[2017-05-16 06:13] LABS: MEAN CORPUSCULAR VOLUME 105.2 fl (80.0-96.0)
[2017-05-16 06:27] LABS: ALBUMIN/GLOBULIN RATIO 0.77 (1.00-1.93); ALKALINE PHOSPHATASE 38 U/L (45-117); ALT/SGPT 19 U/L (12-78); ANION GAP 5 MEQ/L (8-16); AST/SGOT 20 U/L (15-37); BILIRUBIN,TOTAL 0.6 MG/DL (0.2-1.0); BLOOD UREA NITROGEN 15 MG/DL (7-18); CALCIUM LEVEL 7.9 MG/DL (8.8-10.2); CARBON DIOXIDE LEVEL 25 MEQ/L (21-32); CHLORIDE LEVEL 112 MEQ/L (98-107); CREATININE FOR GFR 0.68 MG/DL (0.70-1.30); GLOMERULAR FILTRATION RATE > 60.0 (>42); GLUCOSE, FASTING 112 MG/DL (83-110); MAGNESIUM LEVEL 1.9 MG/DL (1.8-2.4); POTASSIUM SERUM 4.5 MEQ/L (3.5-5.1); SODIUM LEVEL 142 MEQ/L (136-145); TOTAL PROTEIN 4.6 GM/DL (6.4-8.2)
[2017-05-16 06:30] LABS: ADD MORPHOLOGY? YES
[2017-05-16 06:31] LABS: ANISOCYTOSIS 1+
[2017-05-16 08:00] VITALS: BP 118/69
[2017-05-16] MEDS: PANTOPRAZOLE 40MG INJ (PROTONIX) (C9113) IV SCH (09:49)
[2017-05-16] MEDS: ATORVASTATIN 20 MG TAB PO SCH (09:49)
[2017-05-16] MEDS: ASPIRIN 81 MG ENTERIC TAB PO SCH (09:49)
[2017-05-16] MEDS: FERROUS SULFATE 325MG TAB PO SCH ×3 (09:50→20:00)
[2017-05-16] MEDS: LISINOPRIL 10 MG TAB PO SCH (09:50)
[2017-05-16] MEDS: amLODIPine 5 MG TAB PO SCH (09:50)
--- NOTE | 2017-05-16 10:57 | IPNPDOC ---
Date Seen The patient was seen on 05/16/17. Progress Note At 76-year-old man 7 days status post sigmoid colectomy and colostomy. This morning patient is alert. Patient was afebrile over the weekend. This morning patient complained of reflux as well as vomiting. Patient states that with reflux and vomiting started 2 days ago when he was being measured for daily weights. He states that the procedure requires lay flat on his back and causes reflux and nausea. Patient states that his pain is well under control with the BABCOCK TESTER pump. OBJECTIVE PHYSICAL EXAMINATION: VITAL SIGNS: Please see below. GENERAL: Alert, orientated to person and place CARDIOVASCULAR: S1 and S2 present, no murmurs RESPIRATORY: CTAB ABDOMINAL: Small stool content in colostomy bag. No other discharge noted in colostomy bag. LABORATORY DATA: Please see below. MICROBIOLOGY: Please see below. ASSESSMENT AND PLAN: A 76 year old male 6 days status post ex lap with colectomy and colostomy placement. PROBLEMS: 1. Fluid status: Pt is maintaining proper urinary output, we'll continue to monitor patient I's and O's 2. Infection: Pt is on antibiotics for perforated bowel 3. Flower Catheter: In place, order has been placed for D/C tomorrow morning 4. Pain: BABCOCK TESTER is discontinue. An order placed for morphine 4 ml Q2H 5. Thrombocytopenia: Medicine is on board and is managing. He was started on aspirin by medicine for DVT prophylaxis 6. Diet: Patient's bowels appears to be working, as evidenced by stool in his colostomy bag. At this point patient will remain on his clear liquid diet because of complaint of nausea and vomiting. An order has been for mechanically soft diet starting tomorrow. Will monitor patient see how he tolerates the diet before advancing. [facility] Vital Signs/I&O Vital Signs Date Time Temp Pulse Resp B/P (MAP) Pulse Ox O2 Delivery O2 Flow Rate FiO2 05/16/17 09:50 118/69 05/16/17 08:00 97.8 76 18 96 Room Air 05/13/17 00:00 1.0 05/10/17 02:30 50 I&O- Last 24 Hours up to 6 AM 05/17/17 06:00 Intake Total 200 ml Output Total 40 ml Balance 160 ml Laboratory Data 24H LABS Laboratory Tests 2 05/16/17 05:40: Anion Gap 5L, Glomerular Filtration Rate > 60.0, Blood Urea Nitrogen 15, Creatinine 0.68L, Sodium Level 142, Potassium Level 4.5, Chloride Level 112H, Carbon Dioxide Level 25, Calcium Level 7.9L, Aspartate Amino Transf (AST/SGOT) 20, Alanine Aminotransferase (ALT/SGPT) 19, Alkaline Phosphatase 38L, Total Bilirubin 0.6, Total Protein 4.6L, Albumin 2.0L, Magnesium Level 1.9, Albumin/ Globulin Ratio 0.77L 05/16/17 05:41: Immature Granulocyte % (Auto) 4.8H, White Blood Count 4.8, Red Blood Count 3.27L , Hemoglobin 11.7L, Hematocrit 34.4L, Mean Corpuscular Volume 105.2H, Mean Corpuscular Hemoglobin 35.8H, Mean Corpuscular Hemoglobin Concent 34.0, Red Cell Distribution Width 13.5, Platelet Count 124L, Neutrophils (%) (Auto) 72.4H , Lymphocytes (%) (Auto) 11.3L, Monocytes (%) (Auto) 8.2H, Eosinophils (%) (Auto ) 2.5, Basophils (%) (Auto) 0.8, Neutrophils # (Auto) 3.4, Lymphocytes # (Auto) 0.5L, Monocytes # (Auto) 0.4, Eosinophils # (Auto) 0.1, Basophils # (Auto) 0.0, Immature Granulocyte # (Auto) 0.2H, Nucleated Red Blood Cells % (auto) 0.0, Platelet Estimate DECREASED, Anisocytosis 1+ CBC/BMP Laboratory Tests 05/16/17 05:40 Calcium Level 7.9 L, Aspartate Amino Transf (AST/SGOT) 20, Alanine Aminotransferase (ALT/SGPT) 19, Alkaline Phosphatase 38 L, Total Bilirubin 0.6, Total Protein 4.6 L, Albumin 2.0 L Red Blood Count 3.27 L, Mean Corpuscular Volume 105.2 H, Mean Corpuscular Hemoglobin 35.8 H, Mean Corpuscular Hemoglobin Concent 34.0, Red Cell Distribution Width 13.5, Neutrophils (%) (Auto) 72.4 H, Lymphocytes (%) (Auto) 11.3 L, Monocytes (%) (Auto) 8.2 H, Eosinophils (%) (Auto) 2.5, Basophils (%) ( Auto) 0.8, Neutrophils # (Auto) 3.4, Lymphocytes # (Auto) 0.5 L, Monocytes # ( Auto) 0.4, Eosinophils # (Auto) 0.1, Basophils # (Auto) 0.0 Microbiology Microbiology 05/11/17 Blood Culture - Preliminary, Resulted No Growth after 72 hours. All specime... 05/11/17 Blood Culture - Final, Complete NO GROWTH AFTER 5 DAYS GME ATTESTATION GME ATTESTATION My preceptor for this patient encounter was physically present in the building during the encounter and was fully available. As needed, all aspects of the patient interview, examination, medical decision making process, and medical care plan development were reviewed and approved by the preceptor. Preceptor is aware and concurs with the plan as stated in the body of this note and will attest to such by his/her cosignature. VIOLETTA RODRIGUEZ DO May 16, 2017 10:57
[2017-05-16 12:00] VITALS: BP 127/64
--- NOTE | 2017-05-16 12:56 | IPN ---
DATE OF SERVICE: 05/16/2017 Mr. Curry has no complaints today. He is feeling weak and tired. Does not want his Flower catheter taken out. He does not think he can get out of the bed or manage a urinal. His son is at the bedside. He supports him in this plan. Temperature is 97.8, pulse 76, respiratory rate 18, blood pressure 118/69, 96% on room air. Intake and output (I and O) notable for a positive fluid balance of 1735. One bowel movement noted yesterday. He is awake, appropriately interactive, pleasantly conversant. I-to-E ratio is 1:3. Somewhat flattened affect. Mucous membranes moist. Neck is supple. Breathing is symmetrical. I-to-E ratio is 1:3. Speaking in complete sentences. No accessory muscle use. Heart is distant-sounding. Normal S1, S2. Abdomen soft, doughy, nontender. There is green stool from his ostomy. White cell count 4.8, hemoglobin 11.7, and platelets of 124. BUN 15, creatinine 0.68. Blood cultures are negative at 5 days times two. My assessment is as follows: This is a 76-year-old status post acute diverticulitis with perforation status post exploratory laparotomy and colostomy. The plan is as follows: 1. Gastrointestinal (GI). I have discussed this case in person with Dr. Balnd. Advancing diet, antibiotics, and GI management per his guidance. 2. The patient has acute on chronic thrombocytopenia thought to be related to sepsis. Will continue to monitor clinically. 3. Deep venous thrombosis (DVT) prophylaxis is sequential compression devices (SCDs) and thromboembolic deterrents (TEDs), which he is wearing during my examination. 4. The patient had metabolic encephalopathy, which has resolved 5. The patient has hypertension, which is well controlled at the current setting. 6. The patient has macrocytosis. B12 and folate levels are ordered. 7. The patient has chronic anemia. 8. The patient has elevated troponin, which is trending downward. Will need outpatient stress test. MTDD
[2017-05-16 16:00] VITALS: BP 142/78
[2017-05-16] MEDS: MORPHINE 4 MG/ML 1ML SYRINGE IV PRN (16:53)
[2017-05-16 20:00] VITALS: BP 120/70
[2017-05-17] VITALS: BP 121/71
[2017-05-17] MEDS: METOPROLOL TART 12.5 MG PER 1/2 TAB PO SCH ×5 (00:25→23:56)
[2017-05-17 05:00] VITALS: BP 119/65
[2017-05-17] MEDS: CIPROFLOXACIN 400 MG in APPROPRIATE DILUENT 1 EA IV SCH (05:55)
[2017-05-17] MEDS: SLF 3 ML SYR IV SCH ×3 (05:56→20:50)
[2017-05-17] MEDS: metroNIDAZOLE 500 MG in APPROPRIATE DILUENT 1 EA IV SCH (05:56)
[2017-05-17 06:33] LABS: BASO % 0.5 % (0.0-1.0); EOS # 0.1 10^3/uL (0.0-0.50); EOS % 1.6 % (0.0-3.0); IMMATURE GRANULOCYTE % 2.5 % (0-0); LYMPH # 0.5 10^3/uL (1.5-4.5); LYMPH % 7.3 % (24.0-44.0); MEAN CORPUSCULAR HGB CONC 34.4 g/dl (32.0-36.5); MEAN CORPUSCULAR VOLUME 104.6 fl (80.0-96.0); MONO # 0.4 10^3/uL (0.0-0.8); MONO % 5.1 % (0.0-5.0); NEUTROPHILS # 6.1 10^3/uL (1.8-7.7); PLATELET COUNT, AUTOMATED 145 10^3/uL (150-450); RED CELL DISTRIBUTION WIDTH 13.5 % (11.5-14.5); WHITE BLOOD COUNT 7.3 10^3/uL (4.0-10.0)
[2017-05-17 06:59] LABS: ALBUMIN 2.2 GM/DL (3.2-5.2); ALBUMIN/GLOBULIN RATIO 0.81 (1.00-1.93); ALKALINE PHOSPHATASE 39 U/L (45-117); ALT/SGPT 18 U/L (12-78); ANION GAP 8 MEQ/L (8-16); AST/SGOT 22 U/L (15-37); BILIRUBIN,TOTAL 0.6 MG/DL (0.2-1.0); BLOOD UREA NITROGEN 18 MG/DL (7-18); CALCIUM LEVEL 7.9 MG/DL (8.8-10.2); CARBON DIOXIDE LEVEL 23 MEQ/L (21-32); CHLORIDE LEVEL 108 MEQ/L (98-107); CREATININE FOR GFR 0.63 MG/DL (0.70-1.30); GLOMERULAR FILTRATION RATE > 60.0 (>42); GLUCOSE, FASTING 86 MG/DL (83-110); MAGNESIUM LEVEL 1.9 MG/DL (1.8-2.4); POTASSIUM SERUM 3.8 MEQ/L (3.5-5.1); SODIUM LEVEL 139 MEQ/L (136-145); TOTAL PROTEIN 4.9 GM/DL (6.4-8.2)
[2017-05-17 08:00] VITALS: BP 118/69
[2017-05-17] MEDS: PANTOPRAZOLE 40MG INJ (PROTONIX) (C9113) IV SCH (08:58)
[2017-05-17] MEDS: LISINOPRIL 10 MG TAB PO SCH (08:59)
[2017-05-17] MEDS: ATORVASTATIN 20 MG TAB PO SCH (08:59)
[2017-05-17] MEDS: ASPIRIN 81 MG ENTERIC TAB PO SCH (08:59)
[2017-05-17] MEDS: FERROUS SULFATE 325MG TAB PO SCH ×3 (08:59→20:50)
[2017-05-17] MEDS: amLODIPine 5 MG TAB PO SCH (09:00)
[2017-05-17] MEDS: HYDROcodone/APAP LIQUID 7.5-325MG 15ML UDC (LORTAB ELIXIR) PO PRN ×2 (09:02→23:57)
--- NOTE | 2017-05-17 09:19 | IPNPDOC ---
Date Seen The patient was seen on 05/17/17. Progress Note At 76-year-old man 8 days status post sigmoid colectomy and colostomy. This morning patient have his catheter removed. Patient was also started on mechanical soft diet. Patient's STREET ROLLER ENGINEER pump was discontinued yesterday and replaced with scheduled morphine. Patient states that his pain is okay. Patient has yet to get up and use the bathroom. OBJECTIVE PHYSICAL EXAMINATION: VITAL SIGNS: Please see below. GENERAL: Alert, orientated to person and place, not very talkative patient was given 1 word answers CARDIOVASCULAR: S1 and S2 present, no murmurs RESPIRATORY: CTAB ABDOMINAL: Small stool content in colostomy bag. No other discharge noted in colostomy bag. Fluid drainage from his J-tube LABORATORY DATA: Please see below. MICROBIOLOGY: Please see below. ASSESSMENT AND PLAN: A 76 year old male 6 days status post ex lap with colectomy and colostomy placement. PROBLEMS: 1. Fluid status: Patient is maintaining good flow status 2. Infection: Pt is on antibiotics for perforated bowel. Patient WBC is 7.3 3. Flower Catheter: Flower catheter has been discontinued, patient has yet to get up and use the bathroom 4. Pain: STREET ROLLER ENGINEER is discontinue. Patient is now scheduled morphine 5. Thrombocytopenia: Medicine is on board and is managing. He was started on aspirin by medicine for DVT prophylaxis 6. Diet: Patient is on mechanical soft diet. Continue to monitor how he tolerates a diet. And advanced slowly 7. Location: Transferred from PCU to [facility] this this morning VS, I&O, 24H, Fishbone Vital Signs/I&O Vital Signs Date Time Temp Pulse Resp B/P (MAP) Pulse Ox O2 Delivery O2 Flow Rate FiO2 05/17/17 09:02 18 05/17/17 09:00 77 121/71 05/17/17 08:00 97.9 93 Room Air 05/13/17 00:00 1.0 I&O- Last 24 Hours up to 6 AM 05/18/17 06:00 Intake Total 240 ml Output Total 50 ml Balance 190 ml Laboratory Data 24H LABS Laboratory Tests 2 05/17/17 06:05: Immature Granulocyte % (Auto) 2.5H, White Blood Count 7.3, Red Blood Count 3.25L , Hemoglobin 11.7L, Hematocrit 34.0L, Mean Corpuscular Volume 104.6H, Mean Corpuscular Hemoglobin 36.0H, Mean Corpuscular Hemoglobin Concent 34.4, Red Cell Distribution Width 13.5, Platelet Count 145L, Neutrophils (%) (Auto) 83.0H , Lymphocytes (%) (Auto) 7.3L, Monocytes (%) (Auto) 5.1H, Eosinophils (%) (Auto ) 1.6, Basophils (%) (Auto) 0.5, Neutrophils # (Auto) 6.1, Lymphocytes # (Auto) 0.5L, Monocytes # (Auto) 0.4, Eosinophils # (Auto) 0.1, Basophils # (Auto) 0.0, Immature Granulocyte # (Auto) 0.2H, Nucleated Red Blood Cells % (auto) 0.0, Anion Gap 8, Glomerular Filtration Rate > 60.0, Blood Urea Nitrogen 18, Creatinine 0.63L, Sodium Level 139, Potassium Level 3.8, Chloride Level 108H, Carbon Dioxide Level 23, Calcium Level 7.9L, Aspartate Amino Transf (AST/SGOT) 22, Alanine Aminotransferase (ALT/SGPT) 18, Alkaline Phosphatase 39L, Total Bilirubin 0.6, Total Protein 4.9L, Albumin 2.2L, Magnesium Level 1.9, Albumin/ Globulin Ratio 0.81L CBC/BMP Laboratory Tests 05/17/17 06:05 Red Blood Count 3.25 L, Mean Corpuscular Volume 104.6 H, Mean Corpuscular Hemoglobin 36.0 H, Mean Corpuscular Hemoglobin Concent 34.4, Red Cell Distribution Width 13.5, Neutrophils (%) (Auto) 83.0 H, Lymphocytes (%) (Auto) 7.3 L, Monocytes (%) (Auto) 5.1 H, Eosinophils (%) (Auto) 1.6, Basophils (%) ( Auto) 0.5, Neutrophils # (Auto) 6.1, Lymphocytes # (Auto) 0.5 L, Monocytes # ( Auto) 0.4, Eosinophils # (Auto) 0.1, Basophils # (Auto) 0.0, Calcium Level 7.9 L , Aspartate Amino Transf (AST/SGOT) 22, Alanine Aminotransferase (ALT/SGPT) 18, Alkaline Phosphatase 39 L, Total Bilirubin 0.6, Total Protein 4.9 L, Albumin 2.2 L Microbiology Microbiology 05/11/17 Blood Culture - Final, Complete NO GROWTH AFTER 5 DAYS 05/11/17 Blood Culture - Final, Complete NO GROWTH AFTER 5 DAYS GME ATTESTATION GME ATTESTATION My preceptor for this patient encounter was physically present in the building during the encounter and was fully available. As needed, all aspects of the patient interview, examination, medical decision making process, and medical care plan development were reviewed and approved by the preceptor. Preceptor is aware and concurs with the plan as stated in the body of this note and will attest to such by his/her cosignature. VIOLETTA RODRIGUEZ DO May 17, 2017 09:19
[2017-05-17 10:15] LABS: IMMATURE PLATELET FRACTION % 1.9 % (0.0-10.9)
[2017-05-17 11:54] VITALS: BP 119/65
[2017-05-17 14:00] VITALS: BP 129/69
[2017-05-17] MEDS: metroNIDAZOLE (FLAGYL) 500 MG TAB PO SCH ×2 (14:00→15:03)
[2017-05-17] MEDS: metroNIDAZOLE (FLAGYL) 250 MG TAB PO SCH ×2 (15:27→20:50)
[2017-05-17] MEDS: CIPROFLOXACIN 250 MG TAB PO SCH (17:21)
[2017-05-17] MEDS ORDERED: CIPROFLOXACIN 500 MG TAB PO SCH (18:00)
--- NOTE | 2017-05-17 18:50 | IPN ---
DATE: 05/17/2017 Mr. Curry is awake. He is without chest pain, shortness of breath, is complaining of some low back pain, perhaps right hip pain which he has chronically at home and it is worse now. He is frustrated that he has to work with physical therapy. He did not like being out of bed. He does not want to walk in the hallway. Temperature is 97.9, pulse 80, respiratory rate 18, blood pressure 118/69, 93% on room air. Intake and output are notable for a negative fluid status of 205. He is having ostomy output. He is awake, appropriately interactive, somewhat flattened affect. Mucous membranes are moist. Neck is supple. Breathing is symmetrical, diminished. Heart is distant sounding. Normal S1, S2. Abdomen is notable for being soft with active bowel sounds. LABORATORY DATA: White cell count 7.3, hemoglobin 11.7, and platelets of 145. BUN 18, creatinine 0.6. ASSESSMENT: This is a 76-year-old status post acute diverticulitis with perforation, status post exploratory laparotomy and colostomy. PLAN: 1. Gastrointestinal (GI). Diet has been advanced, although the patient does not like any of his dietary choices. He is continued on antibiotics and GI management per Dr. Bland's guidance. 2. The patient has acute on chronic thrombocytopenia thought to be related to sepsis. Continue to monitor this clinically. 3. Deep venous thrombosis (DVT) prophylaxis is mechanical, which he again is wearing during my examination. 4. The patient is status post metabolic encephalopathy. 5. The patient has hypertension, which is well-controlled in the current setting. 6. The patient has macrocytosis and chronic anemia. 7. The patient had an elevated troponin, which is trending downward. Outpatient stress test would be warranted should that be clinically indicated. 8. The patient has deconditioning and will require physical therapy. Will likely need subacute rehabilitation or placement.
[2017-05-17] MEDS: LORazepam 0.5 MG TAB PO PRN (20:50)
[2017-05-17] MEDS ORDERED: SIMETHICONE 80 MG CHEW TAB PO PRN (21:15)
[2017-05-17 22:00] VITALS: BP 112/54
[2017-05-18 02:00] VITALS: BP 120/72
[2017-05-18] MEDS: MORPHINE 4 MG/ML 1ML SYRINGE IV PRN (02:39)
[2017-05-18] MEDS: SLF 3 ML SYR IV SCH ×3 (02:39→21:57)
[2017-05-18 06:00] VITALS: BP 123/72
[2017-05-18] MEDS: metroNIDAZOLE (FLAGYL) 250 MG TAB PO SCH ×3 (06:42→21:57)
[2017-05-18] MEDS: METOPROLOL TART 12.5 MG PER 1/2 TAB PO SCH ×3 (06:42→18:05)
[2017-05-18] MEDS: CIPROFLOXACIN 250 MG TAB PO SCH ×2 (06:42→18:06)
[2017-05-18 07:15] LABS: BASO % 0.5 % (0.0-1.0); EOS # 0.1 10^3/uL (0.0-0.50); EOS % 1.2 % (0.0-3.0); IMMATURE GRANULOCYTE % 1.5 % (0-0); LYMPH # 0.8 10^3/uL (1.5-4.5); LYMPH % 10.2 % (24.0-44.0); MEAN CORPUSCULAR HEMOGLOBIN 35.6 pg (27.0-33.0); MEAN CORPUSCULAR HGB CONC 34.3 g/dl (32.0-36.5); MEAN CORPUSCULAR VOLUME 103.9 fl (80.0-96.0); MONO # 0.4 10^3/uL (0.0-0.8); MONO % 4.8 % (0.0-5.0); NEUTROPHILS # 6.8 10^3/uL (1.8-7.7); NEUTROPHILS % 81.8 % (36.0-66.0); PLATELET COUNT, AUTOMATED 197 10^3/uL (150-450); RED CELL DISTRIBUTION WIDTH 13.6 % (11.5-14.5); WHITE BLOOD COUNT 8.3 10^3/uL (4.0-10.0)
[2017-05-18 07:41] LABS: ALBUMIN 2.2 GM/DL (3.2-5.2); ALBUMIN/GLOBULIN RATIO 0.79 (1.00-1.93); ALKALINE PHOSPHATASE 42 U/L (45-117); ALT/SGPT 18 U/L (12-78); ANION GAP 6 MEQ/L (8-16); AST/SGOT 19 U/L (15-37); BILIRUBIN,TOTAL 0.5 MG/DL (0.2-1.0); BLOOD UREA NITROGEN 21 MG/DL (7-18); CALCIUM LEVEL 8.4 MG/DL (8.8-10.2); CARBON DIOXIDE LEVEL 25 MEQ/L (21-32); CHLORIDE LEVEL 107 MEQ/L (98-107); CREATININE FOR GFR 0.81 MG/DL (0.70-1.30); GLOMERULAR FILTRATION RATE > 60.0 (>42); GLUCOSE, FASTING 100 MG/DL (83-110); MAGNESIUM LEVEL 1.9 MG/DL (1.8-2.4); POTASSIUM SERUM 3.9 MEQ/L (3.5-5.1); SODIUM LEVEL 138 MEQ/L (136-145)
[2017-05-18] MEDS: ASPIRIN 81 MG ENTERIC TAB PO SCH (10:02)
[2017-05-18] MEDS: PANTOPRAZOLE 40MG INJ (PROTONIX) (C9113) IV SCH (10:02)
[2017-05-18] MEDS: FERROUS SULFATE 325MG TAB PO SCH ×3 (10:02→21:57)
[2017-05-18] MEDS: amLODIPine 5 MG TAB PO SCH (10:02)
[2017-05-18] MEDS: ATORVASTATIN 20 MG TAB PO SCH (10:02)
[2017-05-18] MEDS: LISINOPRIL 10 MG TAB PO SCH (10:03)
--- NOTE | 2017-05-18 10:17 | IPNPDOC ---
Date Seen The patient was seen on 05/18/17. Progress Note At 76-year-old man 9 days status post sigmoid colectomy and colostomy. This morning patient have his catheter removed. Patient was also started on mechanical soft diet. Patient's APPLICATION SECURITY CONSULTANT pump was discontinued yesterday and replaced with scheduled morphine. This morning patient states that he is doing a lot better. His pain has improved. He has been using his bottle to urinate. I encouraged patient to get up and walk to the bathroom to urinate. OBJECTIVE PHYSICAL EXAMINATION: VITAL SIGNS: Please see below. GENERAL: Alert, orientated to person and place, not very talkative patient was given 1 word answers CARDIOVASCULAR: S1 and S2 present, no murmurs RESPIRATORY: CTAB ABDOMINAL: Visible stool patient's colostomy bag. No blood or mucus noticed in colostomy bag. LABORATORY DATA: Please see below. MICROBIOLOGY: Please see below. ASSESSMENT AND PLAN: A 76 year old male 6 days status post ex lap with colectomy and colostomy placement. PROBLEMS: 1. Fluid status: She is maintaining good urine output. Encouraged to get up and walk to the bathroom instead of using the bottle to urinate 2. Infection: Patient white count this morning is 8.3. He was switched over from IV antibiotics to by mouth antibiotics yesterday. Patient is tolerating the pills with no 3. Pain: APPLICATION SECURITY CONSULTANT is discontinue. Patient is now scheduled morphine. Patient states that morphine is working 4. Thrombocytopenia: Medicine is on board and is managing. 5. Diet: Patient is on mechanical soft diet. Continue to monitor how he tolerates a diet. And advanced slowly 6. Discharge planning: Patient will be discharged early next week when he is able to ambulate, take care of his ostomy bag, and his pain is well-controlled. VS, I&O, 24H, [facility] Vital Signs/I&O Vital Signs Date Time Temp Pulse Resp B/P (MAP) Pulse Ox O2 Delivery O2 Flow Rate FiO2 05/18/17 10:03 123/72 05/18/17 10:02 82 05/18/17 06:00 98.1 18 94 Room Air 05/13/17 00:00 1.0 Laboratory Data 24H LABS Laboratory Tests 2 05/18/17 07:03: Immature Granulocyte % (Auto) 1.5H, White Blood Count 8.3, Red Blood Count 3.31L , Hemoglobin 11.8L, Hematocrit 34.4L, Mean Corpuscular Volume 103.9H, Mean Corpuscular Hemoglobin 35.6H, Mean Corpuscular Hemoglobin Concent 34.3, Red Cell Distribution Width 13.6, Platelet Count 197, Neutrophils (%) (Auto) 81.8H, Lymphocytes (%) (Auto) 10.2L, Monocytes (%) (Auto) 4.8, Eosinophils (%) (Auto) 1.2, Basophils (%) (Auto) 0.5, Neutrophils # (Auto) 6.8, Lymphocytes # (Auto) 0.8L, Monocytes # (Auto) 0.4, Eosinophils # (Auto) 0.1, Basophils # (Auto) 0.0, Immature Granulocyte # (Auto) 0.1H, Nucleated Red Blood Cells % (auto) 0.0, Anion Gap 6L, Glomerular Filtration Rate > 60.0, Blood Urea Nitrogen 21H, Creatinine 0.81, Sodium Level 138, Potassium Level 3.9, Chloride Level 107, Carbon Dioxide Level 25, Calcium Level 8.4L, Aspartate Amino Transf (AST/SGOT) 19, Alanine Aminotransferase (ALT/SGPT) 18, Alkaline Phosphatase 42L, Total Bilirubin 0.5, Total Protein 5.0L, Albumin 2.2L, Magnesium Level 1.9, Albumin/ Globulin Ratio 0.79L CBC/BMP Laboratory Tests 05/18/17 07:03 Red Blood Count 3.31 L, Mean Corpuscular Volume 103.9 H, Mean Corpuscular Hemoglobin 35.6 H, Mean Corpuscular Hemoglobin Concent 34.3, Red Cell Distribution Width 13.6, Neutrophils (%) (Auto) 81.8 H, Lymphocytes (%) (Auto) 10.2 L, Monocytes (%) (Auto) 4.8, Eosinophils (%) (Auto) 1.2, Basophils (%) ( Auto) 0.5, Neutrophils # (Auto) 6.8, Lymphocytes # (Auto) 0.8 L, Monocytes # ( Auto) 0.4, Eosinophils # (Auto) 0.1, Basophils # (Auto) 0.0, Calcium Level 8.4 L , Aspartate Amino Transf (AST/SGOT) 19, Alanine Aminotransferase (ALT/SGPT) 18, Alkaline Phosphatase 42 L, Total Bilirubin 0.5, Total Protein 5.0 L, Albumin 2.2 L Microbiology Microbiology 10/5/17 Blood Culture - Final, Complete NO GROWTH AFTER 5 DAYS 05/11/17 Blood Culture - Final, Complete NO GROWTH AFTER 5 DAYS GME ATTESTATION GME ATTESTATION My preceptor for this patient encounter was physically present in the building during the encounter and was fully available. As needed, all aspects of the patient interview, examination, medical decision making process, and medical care plan development were reviewed and approved by the preceptor. Preceptor is aware and concurs with the plan as stated in the body of this note and will attest to such by his/her cosignature. VIOLETTA RODRIGUEZ DO May 18, 2017 10:17
[2017-05-18 14:00] VITALS: BP 130/67
--- NOTE | 2017-05-18 15:22 | IPN ---
DATE: 05/18/2017 Mr. Curry is feeling a little more energetic today. He is uncomfortable in bed and when sitting in the chair. He would prefer to be up and moving around today which is a large psychological difference than yesterday. He is looking forward to getting home. He asked for a prescription for a hospital bed as he is not going to be able to move around as well as he was when he originally left home. Temperature is 98.1, pulse 82, respiratory rate 18, blood pressure 123/72, 94% on room air. Intake and output are notable for a negative fluid balance of -360. Body mass index is 28.3. He is awake, appropriately interactive, pleasantly conversant, somewhat more interactive than yesterday. Mucous membranes are moist. Neck is supple. Breathing is symmetrical and rested. Heart is distant sounding. Normal S1, S2. Abdomen is soft, doughy. There is green effluent in his ostomy bag. No significant lower extremity edema. LABORATORY DATA: White count 8.3, hemoglobin 11.8, and platelets of 197. BUN 21, creatinine 0.18. ASSESSMENT: This is a 76-year-old status post acute diverticulitis with perforation, status post exploratory laparotomy and colostomy. PLAN: 1. Gastrointestinal (GI). Diet has been advanced. The patient did not tolerate potatoes that well last night which apparently is not unusual for him at home. He is going to continue with diet today. He on antibiotics and GI management. He may benefit from a hospital bed based on aspiration risk. I started aspiration precautions. 2. The patient has acute on chronic thrombocytopenia thought to be related to sepsis. He has actually normalized today. 3. The patient has appropriate deep venous thrombosis (DVT) prophylaxis which is mechanical. 4. The patient has resolved metabolic encephalopathy. 5. The patient has hypertension, which is well-controlled in the current setting. 6. The patient has macrocytosis and chronic anemia. 7. The patient had an elevated troponin, which is trending downward. Outpatient stress test would be warranted if that is clinically indicated. 8. The patient has deconditioning and is working with physical therapy. Originally, I was thinking that he would need subacute rehabilitation or placement, but based on his rate of improvement, home discharge may be a possibility. BRYN
[2017-05-18 18:00] VITALS: BP 131/66
[2017-05-18 22:00] VITALS: BP 104/61
[2017-05-19] MEDS: ONDANSETRON 4MG/2ML VIAL (J2405) IV PRN (00:51)
[2017-05-19] MEDS: METOPROLOL TART 12.5 MG PER 1/2 TAB PO SCH ×4 (01:44→17:34)
[2017-05-19 06:00] VITALS: BP 115/65
[2017-05-19] MEDS: metroNIDAZOLE (FLAGYL) 250 MG TAB PO SCH (06:26)
[2017-05-19] MEDS: SLF 3 ML SYR IV SCH ×3 (06:26→21:20)
[2017-05-19] MEDS: CIPROFLOXACIN 250 MG TAB PO SCH (06:26)
[2017-05-19 07:05] LABS: BASO # 0.1 10^3/uL (0.0-0.2); BASO % 0.6 % (0.0-1.0); EOS # 0.1 10^3/uL (0.0-0.50); EOS % 0.7 % (0.0-3.0); IMMATURE GRANULOCYTE % 1.8 % (0-0); LYMPH # 0.6 10^3/uL (1.5-4.5); LYMPH % 7.4 % (24.0-44.0); MEAN CORPUSCULAR HEMOGLOBIN 35.5 pg (27.0-33.0); MEAN CORPUSCULAR VOLUME 104.3 fl (80.0-96.0); MONO # 0.4 10^3/uL (0.0-0.8); MONO % 4.6 % (0.0-5.0); NEUTROPHILS # 7.3 10^3/uL (1.8-7.7); NEUTROPHILS % 84.9 % (36.0-66.0); PLATELET COUNT, AUTOMATED 210 10^3/uL (150-450); RED CELL DISTRIBUTION WIDTH 13.4 % (11.5-14.5); WHITE BLOOD COUNT 8.5 10^3/uL (4.0-10.0)
[2017-05-19 07:26] LABS: ALBUMIN 2.3 GM/DL (3.2-5.2); ALBUMIN/GLOBULIN RATIO 0.82 (1.00-1.93); ALKALINE PHOSPHATASE 46 U/L (45-117); ALT/SGPT 16 U/L (12-78); ANION GAP 10 MEQ/L (8-16); AST/SGOT 19 U/L (15-37); BILIRUBIN,TOTAL 0.6 MG/DL (0.2-1.0); BLOOD UREA NITROGEN 20 MG/DL (7-18); CALCIUM LEVEL 7.8 MG/DL (8.8-10.2); CARBON DIOXIDE LEVEL 22 MEQ/L (21-32); CHLORIDE LEVEL 106 MEQ/L (98-107); GLOMERULAR FILTRATION RATE > 60.0 (>42); GLUCOSE, FASTING 81 MG/DL (83-110); MAGNESIUM LEVEL 1.8 MG/DL (1.8-2.4); POTASSIUM SERUM 3.9 MEQ/L (3.5-5.1); SODIUM LEVEL 138 MEQ/L (136-145); TOTAL PROTEIN 5.1 GM/DL (6.4-8.2)
[2017-05-19] MEDS: MORPHINE 4 MG/ML 1ML SYRINGE IV PRN (08:06)
[2017-05-19] MEDS: PANTOPRAZOLE 40MG INJ (PROTONIX) (C9113) IV SCH (08:09)
[2017-05-19] MEDS: ATORVASTATIN 20 MG TAB PO SCH (08:10)
[2017-05-19] MEDS: amLODIPine 5 MG TAB PO SCH (08:10)
[2017-05-19] MEDS: LISINOPRIL 10 MG TAB PO SCH (08:10)
[2017-05-19] MEDS: FERROUS SULFATE 325MG TAB PO SCH ×2 (08:10→21:20)
[2017-05-19] MEDS: ASPIRIN 81 MG ENTERIC TAB PO SCH (08:10)
[2017-05-19] MEDS: raNITIdine SYRUP 150 MG/10 ML UDC PO SCH ×2 (09:38→22:47)
[2017-05-19] MEDS: NYSTATIN 500,000 U/5 ML SUSP UDC PO SCH ×4 (09:38→22:47)
[2017-05-19 10:00] VITALS: BP 120/60
--- NOTE | 2017-05-19 10:27 | IPNPDOC ---
Date Seen The patient was seen on 05/19/17. Progress Note At 76-year-old man 9 days status post sigmoid colectomy and colostomy. This morning patient have his catheter removed. Patient was also started on mechanical soft diet. Scheduled morphine on board for pain. This morning patient reports feeling extreme nausea. He has also been having difficulty swallowing his medication. His pain has improved, but its now localized to his mid abdomen. He is continuing to ambulate to use the bathroom. OBJECTIVE PHYSICAL EXAMINATION: Month: Visible thrush VITAL SIGNS: Please see below. GENERAL: Alert, orientated to person and place, CARDIOVASCULAR: S1 and S2 present, no murmurs RESPIRATORY: CTAB ABDOMINAL: Visible stool patient's colostomy bag. No blood or mucus noticed in colostomy bag. No blood or mucus noted in J tube LABORATORY DATA: Please see below. MICROBIOLOGY: Please see below. ASSESSMENT AND PLAN: A 76 year old male 6 days status post ex lap with colectomy and colostomy placement. PROBLEMS: 1. Fluid status: He is maintaining good urine output. Able to walk to the bathroom to use the bathroom and drinking water 2. Infection: Patient white count this morning is 8.3. His flagyl and cipro have been discontinued 3. 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 Patient is now scheduled morphine. Patient states that morphine is working 4. Thrombocytopenia: Medicine is on board and is managing. 5. Diet: Patient is on mechanical soft diet. And ensure clear 7. Thrush: Pt will be start on a nystatin mouth wash 7. Discharge planning: Patient will be discharged early next week when he is able to ambulate, take care of his ostomy bag, and his pain is well-controlled. VS, I&O, 24H, Fishbone Vital Signs/I&O Vital Signs Date Time Temp Pulse Resp B/P (MAP) Pulse Ox O2 Delivery O2 Flow Rate FiO2 05/19/17 08:53 18 05/19/17 08:10 92 115/65 05/19/17 06:00 98.5 92 Room Air 05/13/17 00:00 1.0 I&O- Last 24 Hours up to 6 AM 05/20/17 05:59 Intake Total 240 ml Output Total 60 ml Balance 180 ml Laboratory Data 24H LABS Laboratory Tests 2 05/19/17 06:48: Immature Granulocyte % (Auto) 1.8H, White Blood Count 8.5, Red Blood Count 3.24L , Hemoglobin 11.5L, Hematocrit 33.8L, Mean Corpuscular Volume 104.3H, Mean Corpuscular Hemoglobin 35.5H, Mean Corpuscular Hemoglobin Concent 34.0, Red Cell Distribution Width 13.4, Platelet Count 210, Neutrophils (%) (Auto) 84.9H, Lymphocytes (%) (Auto) 7.4L, Monocytes (%) (Auto) 4.6, Eosinophils (%) (Auto) 0.7, Basophils (%) (Auto) 0.6, Neutrophils # (Auto) 7.3, Lymphocytes # (Auto) 0.6L, Monocytes # (Auto) 0.4, Eosinophils # (Auto) 0.1, Basophils # (Auto) 0.1, Immature Granulocyte # (Auto) 0.2H, Nucleated Red Blood Cells % (auto) 0.0, Anion Gap 10, Glomerular Filtration Rate > 60.0, Blood Urea Nitrogen 20H, Creatinine 0.70, Sodium Level 138, Potassium Level 3.9, Chloride Level 106, Carbon Dioxide Level 22, Calcium Level 7.8L, Aspartate Amino Transf (AST/SGOT) 19, Alanine Aminotransferase (ALT/SGPT) 16, Alkaline Phosphatase 46, Total Bilirubin 0.6, Total Protein 5.1L, Albumin 2.3L, Magnesium Level 1.8, Albumin/ Globulin Ratio 0.82L CBC/BMP Laboratory Tests 05/19/17 06:48 Red Blood Count 3.24 L, Mean Corpuscular Volume 104.3 H, Mean Corpuscular Hemoglobin 35.5 H, Mean Corpuscular Hemoglobin Concent 34.0, Red Cell Distribution Width 13.4, Neutrophils (%) (Auto) 84.9 H, Lymphocytes (%) (Auto) 7.4 L, Monocytes (%) (Auto) 4.6, Eosinophils (%) (Auto) 0.7, Basophils (%) (Auto ) 0.6, Neutrophils # (Auto) 7.3, Lymphocytes # (Auto) 0.6 L, Monocytes # (Auto) 0.4, Eosinophils # (Auto) 0.1, Basophils # (Auto) 0.1, Calcium Level 7.8 L, Aspartate Amino Transf (AST/SGOT) 19, Alanine Aminotransferase (ALT/SGPT) 16, Alkaline Phosphatase 46, Total Bilirubin 0.6, Total Protein 5.1 L, Albumin 2.3 L Microbiology Microbiology 05/11/17 Blood Culture - Final, Complete NO GROWTH AFTER 5 DAYS 05/11/17 Blood Culture - Final, Complete NO GROWTH AFTER 5 DAYS GME ATTESTATION GME ATTESTATION My preceptor for this patient encounter was physically present in the building during the encounter and was fully available. As needed, all aspects of the patient interview, examination, medical decision making process, and medical care plan development were reviewed and approved by the preceptor. Preceptor is aware and concurs with the plan as stated in the body of this note and will attest to such by his/her cosignature. VIOLETTA RODRIGUEZ DO May 19, 2017 10:27
[2017-05-19 14:00] VITALS: BP 116/66
--- NOTE | 2017-05-19 14:10 | IPN ---
DATE: 05/19/2017 Mr. Curry had some abdominal discomfort last night. He has some mouth and throat pain. No chest pain. No shortness of breath. He has not been interested in his diet. Temperature is 98.5, pulse 81, respiratory rate 18, blood pressure 116/66. Is awake, appropriately interactive, pleasantly conversant. Mucous membranes are moist. He has thrush. Neck is supple. Breathing is symmetrical and rested. Heart is distant sounding. Normal S1, S2. Abdomen is distended, tympanitic. He has liquid dark stool in his ostomy bag. LABORATORY DATA: White count 8.5, hemoglobin 11.5, and platelets of 210. BUN 20, creatinine 0.7. ASSESSMENT: This is a 76-year-old status post acute diverticulitis with perforation, status post exploratory laparotomy and colostomy. PLAN: 1. Gastrointestinal (GI). Discussed this case with the surgical team. Diet is advanced. Treating thrush. Abdomen is thought to be improving normally. He was given a prescription for a hospital bed for home based on aspiration risk. 2. The patient has acute on chronic thrombocytopenia thought to be related to sepsis, which is again normalized above his baseline. 3. The patient has mechanical deep venous thrombosis (DVT) prophylaxis. 4. The patient has resolved metabolic encephalopathy. 5. The patient has hypertension, which is well-controlled in the current setting. 6. The patient has macrocytosis and chronic anemia. 7. The patient had an elevated troponin during the stay. Outpatient stress test would be warranted if clinically indicated. 8. The patient continues with deconditioning and is working with physical therapy. Plan at this point is likely discharge home. BRYN
[2017-05-19] MEDS ORDERED: FERROUS SULFATE 300MG/5ML UDC LIQUID PO SCH (16:00)
[2017-05-19 18:00] VITALS: BP 115/60
[2017-05-19 22:00] VITALS: BP 127/65
[2017-05-20 00:21] VITALS: BP 111/62
[2017-05-20] MEDS: METOPROLOL TART 12.5 MG PER 1/2 TAB PO SCH ×4 (00:23→18:12)
[2017-05-20] MEDS: raNITIdine SYRUP 150 MG/10 ML UDC PO SCH ×4 (00:25→20:30)
[2017-05-20] MEDS: MORPHINE 4 MG/ML 1ML SYRINGE IV PRN ×3 (02:55→20:21)
[2017-05-20] MEDS: SLF 3 ML SYR IV SCH ×3 (05:55→20:22)
[2017-05-20 06:00] VITALS: BP 124/64
[2017-05-20 06:54] LABS: BASO % 0.7 % (0.0-1.0); EOS # 0.1 10^3/uL (0.0-0.50); EOS % 1.7 % (0.0-3.0); IMMATURE GRANULOCYTE % 1.5 % (0-0); LYMPH # 0.5 10^3/uL (1.5-4.5); LYMPH % 7.7 % (24.0-44.0); MEAN CORPUSCULAR HEMOGLOBIN 35.7 pg (27.0-33.0); MEAN CORPUSCULAR HGB CONC 34.4 g/dl (32.0-36.5); MEAN CORPUSCULAR VOLUME 103.8 fl (80.0-96.0); MONO # 0.3 10^3/uL (0.0-0.8); MONO % 5.7 % (0.0-5.0); NEUTROPHILS # 4.8 10^3/uL (1.8-7.7); NEUTROPHILS % 82.7 % (36.0-66.0); PLATELET COUNT, AUTOMATED 208 10^3/uL (150-450); RED CELL DISTRIBUTION WIDTH 13.4 % (11.5-14.5); WHITE BLOOD COUNT 5.8 10^3/uL (4.0-10.0)
[2017-05-20 07:16] LABS: ALBUMIN 2.2 GM/DL (3.2-5.2); ALBUMIN/GLOBULIN RATIO 0.81 (1.00-1.93); ALKALINE PHOSPHATASE 48 U/L (45-117); ALT/SGPT 16 U/L (12-78); ANION GAP 4 MEQ/L (8-16); AST/SGOT 18 U/L (15-37); BILIRUBIN,TOTAL 0.4 MG/DL (0.2-1.0); BLOOD UREA NITROGEN 18 MG/DL (7-18); CALCIUM LEVEL 7.5 MG/DL (8.8-10.2); CARBON DIOXIDE LEVEL 24 MEQ/L (21-32); CHLORIDE LEVEL 108 MEQ/L (98-107); CREATININE FOR GFR 0.67 MG/DL (0.70-1.30); GLOMERULAR FILTRATION RATE > 60.0 (>42); GLUCOSE, FASTING 119 MG/DL (83-110); MAGNESIUM LEVEL 1.8 MG/DL (1.8-2.4); POTASSIUM SERUM 3.9 MEQ/L (3.5-5.1); SODIUM LEVEL 136 MEQ/L (136-145); TOTAL PROTEIN 4.9 GM/DL (6.4-8.2)
[2017-05-20] MEDS: ATORVASTATIN 20 MG TAB PO SCH (08:43)
[2017-05-20] MEDS: LORazepam 0.5 MG TAB PO PRN (08:44)
[2017-05-20] MEDS: LISINOPRIL 10 MG TAB PO SCH (08:44)
[2017-05-20] MEDS: amLODIPine 5 MG TAB PO SCH (08:44)
[2017-05-20] MEDS: PANTOPRAZOLE 40MG INJ (PROTONIX) (C9113) IV SCH (08:44)
[2017-05-20] MEDS: FERROUS SULFATE 325MG TAB PO SCH ×3 (08:44→20:21)
[2017-05-20] MEDS: HYDROcodone/APAP LIQUID 7.5-325MG 15ML UDC (LORTAB ELIXIR) PO PRN (08:46)
[2017-05-20] MEDS: NYSTATIN 500,000 U/5 ML SUSP UDC PO SCH ×4 (08:48→21:35)
[2017-05-20] MEDS: ASPIRIN 81 MG ENTERIC TAB PO SCH (08:52)
[2017-05-20] MEDS ORDERED: ASPIRIN 81 MG CHEW TABLET GT SCH (09:00)
--- NOTE | 2017-05-20 13:05 | IPN ---
DATE: 05/20/2017 The patient is now approximately 10 days postoperative from exploratory laparotomy and colostomy for a perforated diverticulum. He seems to be on the mend at this point. His colostomy is functioning well and he is taking a mechanical soft diet. He has a past history of head and neck malignancy and reports that he has some swallowing difficulties, particularly with pills, at baseline. Vital signs show that he has been afebrile for days. His pulse is in the 68-86 range with a normal respiratory rate and a normal blood pressure. He is on room air with acceptable saturations. Intake and output from the is recorded as 840 in with 1400 out. He has a drain in place in the right lower abdomen since surgery which put out 60 mL yesterday. PHYSICAL EXAMINATION: The patient is an older gentleman lying quietly on the hospital bed. He is alert and oriented. His affect is somewhat flat. Sclerae are anicteric and mucous membranes are moist. Heart exam shows a regular rhythm. The lungs are clear. The abdomen is flat. He has a very large dressing on his midline incision which has ronnie in place with two small open areas that have some gauze packing in these two areas at the upper and lower ends of the incision. He has a colostomy in his left lower quadrant which appears healthy and is draining stool. The drain is in the right lower abdomen. The abdomen is soft and without significant tenderness at this time. LABORATORY STUDIES: He had a CBC today showing a white count of 5.8 with a hemoglobin of 10, hematocrit 30 and platelet count of 200,000. Chemistry profile shows a BUN of 18, creatinine of 0.7 and glucose of 119. Protein is 4.9 with an albumin of 2.2. His liver function tests are normal. He has no recent imaging studies. IMPRESSION: The patient is doing well now 10 days postoperative from his laparotomy for a perforated sigmoid diverticulum leading to sigmoid resection and end colostomy. He is afebrile and is tolerating a diet acceptably. He reports that he is voiding fine, though I note that we have not restarted the finasteride that he was on preoperatively. PLAN: The patient will be continued on his soft diet. I encouraged him to try taking oral medications as he is still taking occasional doses of IV morphine. I will remove his drain as this is putting out only some clear serous fluid today and the amount is minimal. Local wound care to his wound can continue with small areas of packing at the superior and inferior ends of the wound. I encouraged him to be out of bed and we will need to continue physical therapy. MTDD
[2017-05-20] MEDS: ONDANSETRON 4MG/2ML VIAL (J2405) IV PRN ×2 (13:19→20:27)
[2017-05-20 14:00] VITALS: BP 107/63
[2017-05-20] MEDS: FINASTERIDE 5 MG TAB PO SCH (20:21)
--- NOTE | 2017-05-20 21:29 | IPN ---
DATE: 05/20/2017 Mr. Curry is feeling a little more energetic this morning. He is tolerating a diet. Food is not particularly tasty to him but his tongue is improved and his sore throat is improved. Temperature is 96.8, pulse 80, respiratory rate 20, blood pressure 124/64, 92% on room air. Input and output notable for negative fluid balance of -570. Awake, appropriately interactive, pleasantly conversant. Breathing is symmetrical, diminished in the bases. Clears with deep inspiration. Heart is distant sounding. Abdomen is soft, doughy, nontender. There is scant green output in his ostomy bag. LABORATORY DATA: White count 5.8, hemoglobin 10.4, and platelets of 208. BUN 18, creatinine 0.7. ASSESSMENT: This is a 76-year-old status post acute diverticulitis with perforation, status post exploratory laparotomy and colostomy. PLAN: 1. Gastrointestinal (GI). Dr. Lara is covering this weekend. He has been treated for thrush. Abdomen is felt to be improving normally. He was given a prescription for a hospital bed based on possible risk of aspiration. Drain was apparently removed after my visit. 2. The patient has acute on chronic thrombocytopenia thought to be related to sepsis. 3. The patient has mechanical deep venous thrombosis (DVT) prophylaxis. 4. The patient has resolved metabolic encephalopathy. 5. The patient has hypertension, which is reasonably well-controlled in the current setting. 6. The patient has macrocytosis and chronic anemia. 7. The patient had an elevated troponin during the stay. Outpatient stress test may be warranted. 8. The patient has deconditioning. Plan is for discharge possibly to home. The patient's son is at bedside.
[2017-05-20 21:36] VITALS: BP 118/67
[2017-05-21] MEDS: METOPROLOL TART 12.5 MG PER 1/2 TAB PO SCH ×4 (00:29→17:36)
[2017-05-21] MEDS: SLF 3 ML SYR IV SCH ×3 (06:00→21:42)
[2017-05-21 06:08] VITALS: BP 114/64
[2017-05-21] MEDS: amLODIPine 5 MG TAB PO SCH (09:00)
[2017-05-21] MEDS: LISINOPRIL 10 MG TAB PO SCH (09:00)
[2017-05-21] MEDS: NYSTATIN 500,000 U/5 ML SUSP UDC PO SCH ×4 (09:14→21:42)
[2017-05-21] MEDS: raNITIdine SYRUP 150 MG/10 ML UDC PO SCH ×2 (09:15→21:42)
[2017-05-21] MEDS: ATORVASTATIN 20 MG TAB PO SCH (09:15)
[2017-05-21] MEDS: ASPIRIN 81 MG ENTERIC TAB PO SCH (09:15)
[2017-05-21] MEDS: FERROUS SULFATE 325MG TAB PO SCH ×3 (09:16→21:42)
[2017-05-21] MEDS ORDERED: ACETAMINOPHEN TAB 650MG DOSE (2X325MG) PO PRN (09:30)
[2017-05-21 12:00] VITALS: BP 111/61
[2017-05-21 14:00] VITALS: BP 111/61
[2017-05-21] MEDS ORDERED: MORPHINE 2 MG/ML 1ML SYRINGE IV PRN (16:15)
--- NOTE | 2017-05-21 16:47 | IPN ---
DATE: 05/21/2017 HISTORY: The patient is now 11 days postoperative from a perforated sigmoid diverticulum leading to a laparotomy with sigmoid colectomy and end colostomy. He is generally doing well with improving oral intake. He has requested a pureed diet because of difficulty swallowing following a previous treatment for a head and neck cancer. OBJECTIVE: VITAL SIGNS: The patient has been afebrile for the past 24 hours. Vital signs are otherwise unremarkable. INTAKE AND OUTPUT: Recorded on 05/20, intake 720, output stool 450 and drain was 70 mL before it was removed. Today output so far is 725 of urine and 400 of stool. PHYSICAL EXAMINATION: The patient is a thin, older, slightly frail-appearing gentleman lying quietly in the hospital bed. He is alert, oriented and cooperative. He is not complaining of significant discomfort at present. He does express that he is eager to go home. Abdomen is flat. He has a very large dressing on a small midline incision and has two small open areas at the superior and inferior aspects that are packed with Iodoform gauze. There are ronnie in the remaining portions of the wound. His ostomy appears to be functioning well. The abdomen is otherwise without significant tenderness. LABORATORY STUDIES: The patient has no new labs today. IMPRESSION: The patient is doing well now 11 days postoperative from his colectomy and colostomy. He is eager to go home and I think he is probably about at the point where he could go home as long as home care services are in place. PLAN: We will try to get the patient out in the next day or two. I spoke with the hospitalist who indicates that they are trying to obtain a hospital bed for the patient. He needs some continuing local wound care just with washing of his wound daily or twice daily. He probably will need some assistance with his colostomy care at home as well. BRYN
[2017-05-21] MEDS: FINASTERIDE 5 MG TAB PO SCH (21:42)
[2017-05-21 22:00] VITALS: BP 105/63
[2017-05-22] MEDS: METOPROLOL TART 12.5 MG PER 1/2 TAB PO SCH ×3 (00:25→12:08)
[2017-05-22 02:00] VITALS: BP 111/65
[2017-05-22 06:00] VITALS: BP 117/70
[2017-05-22] MEDS: SLF 3 ML SYR IV SCH (06:18)
[2017-05-22 09:36] VITALS: BP 115/66
[2017-05-22] MEDS: LISINOPRIL 10 MG TAB PO SCH (09:36)
[2017-05-22] MEDS: FERROUS SULFATE 325MG TAB PO SCH (09:37)
[2017-05-22] MEDS: NYSTATIN 500,000 U/5 ML SUSP UDC PO SCH ×2 (09:37→13:46)
[2017-05-22] MEDS: ASPIRIN 81 MG ENTERIC TAB PO SCH (09:37)
[2017-05-22] MEDS: amLODIPine 5 MG TAB PO SCH (09:37)
[2017-05-22] MEDS: ATORVASTATIN 20 MG TAB PO SCH (09:42)
[2017-05-22] MEDS: raNITIdine SYRUP 150 MG/10 ML UDC PO SCH (09:42)
[2017-05-22 10:00] VITALS: BP 125/65
[2017-05-22] MEDS ORDERED: ATOR1TAB21 PO (11:58)
[2017-05-22] MEDS ORDERED: AMLO5TAB2 PO (11:58)
[2017-05-22] MEDS ORDERED: LISI10TA4 PO (11:58)
[2017-05-22] MEDS ORDERED: METO1TAB87 PO (11:58)
--- NOTE | 2017-05-22 16:11 | IPN ---
DATE: 05/22/2017 The patient has plans to return home today. No chest pain. No shortness of breath. Tolerating a diet. He is still weak with activity. Temperature is 98.4, pulse 76, respiratory rate 16, blood pressure 125/65, 99% on room air. Awake, appropriately interactive. Mucous membranes are moist. Neck is supple. Breathing is symmetrical. Heart is distant sounding, normal S1, S2. Abdomen is soft, doughy, nontender. LABORATORY DATA: White count 5.8, hemoglobin 10.4, and platelets of 208. BUN 18, creatinine 0.6. ASSESSMENT: This is a 76-year-old status post acute diverticulitis with perforation, status post exploratory laparotomy and colostomy. PLAN: 1. Gastrointestinal (GI). It is reasonable to have a hospital bed. 2. The patient has hypertension which is reasonable well controlled. I have adjusted his home medications at the time of discharge, recommending changing lisinopril from 5 mg to 10 mg daily, continuing metoprolol tartrate 12.5 mg by mouth twice a day, and atorvastatin 20 mg two tablets by mouth daily, continuing aspirin 81 mg by mouth daily. The patient may benefit from an outpatient stress test which should be discussed at his followup visit with Dr. Vasquez.
--- NOTE | 2017-06-17 13:23 | DSES ---
DATE OF ADMISSION: 05/10/2017 DATE OF DISCHARGE: 05/22/2017 PRINCIPAL DIAGNOSIS: Perforated diverticulitis. ASSOCIATED DIAGNOSES: History of head and neck cancer, history of colitis, history of arthritis, history of abdominal aortic aneurysm repair, history of gastric ulcers, history of hypertension. BRIEF HISTORY OF PRESENT ILLNESS: The patient is a 76-year-old male who developed constipation over the last 3 days prior to admission, developed acute onset of abdominal pain radiating to his back, ended up coming to the emergency room for this severe abdominal pain, and CAT scan revealed free air on CT scan with severe abdominal pain and peritoneal signs. HOSPITAL COURSE SUMMARY: The patient with the above diagnosis, was taken to the operating room, where he underwent sigmoid colectomy and colostomy. Postoperatively, the patient had a slow progressive improvement of his overall symptoms. However, he has had a significant weight loss issue, and pain control was difficult in the initial few days, and eventually after this was adequate. The patient seemed to make some rapid progression of his overall status. He was discharged home after tolerating a regular diet. He was continued on his aspirin, finasteride, and ranitidine at the time of discharge, and then new prescriptions of atorvastatin, lisinopril, and metoprolol were given. He was to followup in [address] Bland and followup in 1 week with his primary care provider. He was to have home health evaluate him/educate on ostomy care.
== END 2017-05-22 13:40 | disposition home health service (06) | DRG 329 ==
LOC: M ED 19:22 → EDBD 19:22 → M SDC 21:14 → M ED INP 05-10 00:44 → M ICU 05-10 02:46 → M PCU 05-13 04:12 → M MS5PR 05-17 11:23
PROVIDERS: ADMIT Surgery; ATTEND Surgery
PROC: 0DBN0ZZ Excision of Sigmoid Colon, Open Approach (ICD-10-PCS; principal; 2017-05-10)
PROC: 0D1N0J4 Bypass Sigmoid Colon to Cutaneous with Synthetic Substitute, Open Approach (ICD-10-PCS; 2017-05-10)
DX: K57.20 Diverticulitis of large intestine with perforation and abscess without bleeding (principal); A41.9 Sepsis, unspecified organism; G93.41 Metabolic encephalopathy; J98.11 Atelectasis; E87.2 Acidosis; B37.0 Candidal stomatitis; Z66 Do not resuscitate; K52.9 Noninfective gastroenteritis and colitis, unspecified; I10 Essential (primary) hypertension; D69.6 Thrombocytopenia, unspecified; D50.9 Iron deficiency anemia, unspecified; D53.9 Nutritional anemia, unspecified; Z85.819 Personal history of malignant neoplasm of unspecified site of lip, oral cavity, and pharynx; Z79.82 Long term (current) use of aspirin; Z79.899 Other long term (current) drug therapy; Z95.0 Presence of cardiac pacemaker; Z87.891 Personal history of nicotine dependence

== ENCOUNTER 2017-11-09 07:01 | Day surgery (SDC) | payer MEDICARE ==
[~2017-11-09 07:01] MED LIST changes: +LIDOCAINE 2% MDV 20 ML VIAL As Ordered; +PROPOFOL 200 MG/20 ML VIAL As Ordered; -RANI1TAB6 PO; -TYLE167L PO
[2017-11-09] MEDS: NS 1,000 ML IV ×2 (07:43)
[2017-11-09] MEDS ORDERED: PROPOFOL 200 MG/20 ML VIAL As Ordered ×2 (13:33)
== END 2017-11-09 09:04 | disposition home or self-care (01) ==
LOC: M OPP 07:01
DX: Z09 Encounter for follow-up examination after completed treatment for conditions other than malignant neoplasm (principal); K57.32 Diverticulitis of large intestine without perforation or abscess without bleeding; K57.30 Diverticulosis of large intestine without perforation or abscess without bleeding; I44.0 Atrioventricular block, first degree; Z86.79 Personal history of other diseases of the circulatory system; K52.9 Noninfective gastroenteritis and colitis, unspecified; I25.6 Silent myocardial ischemia; I10 Essential (primary) hypertension; Z95.0 Presence of cardiac pacemaker; I49.5 Sick sinus syndrome; K26.9 Duodenal ulcer, unspecified as acute or chronic, without hemorrhage or perforation; Z85.09 Personal history of malignant neoplasm of other digestive organs; Z92.3 Personal history of irradiation; M19.90 Unspecified osteoarthritis, unspecified site; N40.1 Benign prostatic hyperplasia with lower urinary tract symptoms; Z87.19 Personal history of other diseases of the digestive system; Z87.891 Personal history of nicotine dependence; Z79.82 Long term (current) use of aspirin; Z79.899 Other long term (current) drug therapy
CPT/HCPCS: 45378

== ENCOUNTER → 2017-12-29 | Outpatient (CLI) | payer MEDICARE ==
[2017-12-29 09:21] LABS: HEMOGLOBIN 10.7 g/dl (13.5-17.5); MEAN CORPUSCULAR HEMOGLOBIN 32.2 pg (27.0-33.0); MEAN CORPUSCULAR HGB CONC 32.4 g/dl (32.0-36.5); MEAN CORPUSCULAR VOLUME 99.4 fl (80.0-96.0); PLATELET COUNT, AUTOMATED 111 10^3/uL (150-450); RED BLOOD COUNT 3.32 10^6/uL (4.30-6.10); RED CELL DISTRIBUTION WIDTH 14.3 % (11.5-14.5); WHITE BLOOD COUNT 4.1 10^3/uL (4.0-10.0)
[2017-12-29 09:32] LABS: INR 1.03; PROTHROMBIN TIME 13.6 SECONDS (12.4-14.5)
[2017-12-29 10:00] LABS: ALBUMIN 3.7 GM/DL (3.2-5.2); ALBUMIN/GLOBULIN RATIO 1.16 (1.00-1.93); ALKALINE PHOSPHATASE 83 U/L (45-117); ALT/SGPT 18 U/L (12-78); ANION GAP 9 MEQ/L (8-16); AST/SGOT 14 U/L (7-37); BILIRUBIN,TOTAL 0.7 MG/DL (0.2-1.0); BLOOD UREA NITROGEN 17 MG/DL (7-18); CALCIUM LEVEL 8.8 MG/DL (8.8-10.2); CARBON DIOXIDE LEVEL 27 MEQ/L (21-32); CHLORIDE LEVEL 108 MEQ/L (98-107); CHOLESTEROL LEVEL 175 MG/DL (<200); CHOLESTEROL RISK RATIO 4.861 (<5); CREATININE FOR GFR 1.34 MG/DL (0.70-1.30); GLOMERULAR FILTRATION RATE 55.2 (>42); GLUCOSE, FASTING 93 MG/DL (70-100); HDL CHOLESTEROL 36 MG/DL (>40); NON-HDL-C 139 MG/DL; POTASSIUM SERUM 4.1 MEQ/L (3.5-5.1); PROSTATIC SPECIFIC AG MONITOR 0.37 NG/ML (< 4.0); SODIUM LEVEL 144 MEQ/L (136-145); TOTAL PROTEIN 6.9 GM/DL (6.4-8.2); TRIGLYCERIDES LEVEL 150 MG/DL (<150)
[2017-12-29 10:46] LABS: APPEARANCE, URINE CLEAR (CLEAR); BACTERIA, URINE AUTO NEGATIVE (NEGATIVE); BILIRUBIN, URINE AUTO NEGATIVE (NEGATIVE); BLOOD, URINE BLOOD 1+ (NEGATIVE); COLOR, URINE YELLOW (YELLOW); GLUCOSE, URINE (UA) AUTO NEGATIVE (NEGATIVE); KETONE, URINE AUTO NEGATIVE (NEGATIVE); LEUKOCYTE ESTERASE, URINE AUTO NEGATIVE (NEGATIVE); MUCUS, URINE SMALL (NEGATIVE); NITRITE, URINE AUTO NEGATIVE (NEGATIVE); PROTEIN, URINE AUTO NEGATIVE (NEGATIVE); RBC, URINE AUTO 4 /HPF (0-3); SPECIFIC GRAVITY URINE AUTO 1.017 (1.002-1.035); SQUAMOUS EPITHELIAL CELL UR AU 0 /HPF (0-6); UROBILINOGEN, URINE AUTO 0.2 mg/dL (0.0-2.0); WBC, URINE AUTO 0 /HPF (0-3)
== END ==
LOC: M LAB 07:56
DX: I10 Essential (primary) hypertension (principal); R53.83 Other fatigue; Z01.818 Encounter for other preprocedural examination; Z79.899 Other long term (current) drug therapy; E78.5 Hyperlipidemia, unspecified; I25.2 Old myocardial infarction; Z95.0 Presence of cardiac pacemaker
CPT/HCPCS: 71046

== ENCOUNTER → 2018-03-08 | Outpatient (CLI) | payer MEDICARE ==
[2018-03-08 08:44] LABS: MEAN CORPUSCULAR HEMOGLOBIN 32.6 pg (27.0-33.0); MEAN CORPUSCULAR HGB CONC 32.4 g/dl (32.0-36.5); MEAN CORPUSCULAR VOLUME 100.9 fl (80.0-96.0); PLATELET COUNT, AUTOMATED 122 10^3/uL (150-450); RED BLOOD COUNT 3.37 10^6/uL (4.30-6.10); RED CELL DISTRIBUTION WIDTH 14.6 % (11.5-14.5); WHITE BLOOD COUNT 4.2 10^3/uL (4.0-10.0)
[2018-03-08 08:55] LABS: PROTHROMBIN TIME 14.3 SECONDS (12.1-14.4)
[2018-03-08 09:21] LABS: ALBUMIN 3.4 GM/DL (3.2-5.2); ALBUMIN/GLOBULIN RATIO 1.03 (1.00-1.93); ALKALINE PHOSPHATASE 89 U/L (45-117); ALT/SGPT 16 U/L (12-78); ANION GAP 7 MEQ/L (8-16); AST/SGOT 14 U/L (7-37); BILIRUBIN,TOTAL 0.5 MG/DL (0.2-1.0); BLOOD UREA NITROGEN 16 MG/DL (7-18); CALCIUM LEVEL 8.5 MG/DL (8.8-10.2); CARBON DIOXIDE LEVEL 28 MEQ/L (21-32); CHLORIDE LEVEL 109 MEQ/L (98-107); CHOLESTEROL LEVEL 162 MG/DL (<200); CHOLESTEROL RISK RATIO 4.628 (<5); CREATININE FOR GFR 1.41 MG/DL (0.70-1.30); GLUCOSE, FASTING 92 MG/DL (70-100); HDL CHOLESTEROL 35 MG/DL (>40); LDL CHOLESTEROL 94.6 MG/DL (<100); NON-HDL-C 127 MG/DL; POTASSIUM SERUM 4.6 MEQ/L (3.5-5.1); SODIUM LEVEL 144 MEQ/L (136-145); TOTAL PROTEIN 6.7 GM/DL (6.4-8.2); TRIGLYCERIDES LEVEL 162 MG/DL (<150)
== END ==
LOC: M LAB 08:08
DX: Z01.818 Encounter for other preprocedural examination (principal); J44.9 Chronic obstructive pulmonary disease, unspecified; I10 Essential (primary) hypertension; R91.8 Other nonspecific abnormal finding of lung field; Z95.0 Presence of cardiac pacemaker; M51.34 Other intervertebral disc degeneration, thoracic region
CPT/HCPCS: 71046

== ENCOUNTER 2018-03-27 12:54 | Inpatient (IN) | payer MEDICARE ==
[2018-03-27] MEDS: LR 1,000 ML IV ×2 (13:40→19:15)
[2018-03-27] MEDS ORDERED: MIDAZOLAM INJ 2 MG/2 ML VIAL (J2250) As Ordered (14:48)
[2018-03-27] MEDS ORDERED: fentaNYL 100 MCG/2 ML INJECTION (J3010) As Ordered ×3 (14:48→18:06)
[2018-03-27] MEDS ORDERED: ePHEDrine SULFATE 25 MG/5 ML(5MG/ML) SYRINGE As Ordered ×2 (16:11→18:05)
[2018-03-27] MEDS: ERTAPENEM SODIUM 1 GM in NS 50 ML IV (16:15)
[2018-03-27] MEDS ORDERED: ROCURONIUM BROMIDE 50 MG/5 ML VIAL As Ordered (17:55)
[2018-03-27] MEDS: GLUCAGON FOR INJ 1 MG VIAL (J1610) As Ordered (18:00)
[2018-03-27] MEDS ORDERED: NEOSTIGMINE 10 MG/10 ML VIAL (J2710) As Ordered (18:29)
[2018-03-27] MEDS ORDERED: GLYCOPYRROLATE INJ 0.2 MG/ML 2 ML VIAL As Ordered ×2 (18:29)
[2018-03-27] MEDS ORDERED: dexameTHASONE 4 MG/ML 1ML VIAL (J1100) As Ordered (18:30)
[2018-03-27] MEDS: BUPIVACAINE HCL 0.25% 10 ML VIAL As Ordered (18:30)
[2018-03-27] MEDS ORDERED: ONDANSETRON 4MG/2ML VIAL (J2405) As Ordered (18:30)
[2018-03-27] MEDS: BUPIVACAINE LIPOSOME/PF 1.3% 20 ML VIAL (13.3MG/ML)(EXPAREL) As Ordered (18:30)
[2018-03-27] MEDS ORDERED: KETOROLAC 60 MG/2 ML VIAL (J1885) As Ordered (18:34)
[2018-03-27] MEDS: NS 1,000 ML IV (18:49)
[2018-03-27] MEDS ORDERED: NS 1,000 ML IV (18:49)
[2018-03-27] MEDS ORDERED: NALBUPHINE HCL 10 MG/ML AMP (J2300) IV (19:00)
[2018-03-27] MEDS ORDERED: NALOXONE INJ 0.4 MG/1 ML VIAL (J2310) IV (19:00)
[2018-03-27] MEDS ORDERED: PROMETHAZINE INJ 25 MG/ML VIAL (J2550) IV (19:00)
[2018-03-27] MEDS ORDERED: IPRATROPIUM 0.5MG/ALBUTEROL 2.5MG INH SOL UD 3ML (DUONEB)(J7620) NEB (19:00)
[2018-03-27] MEDS ORDERED: diphenhydrAMINE INJ 50MG/ML VIAL (J1200) IV (19:00)
[2018-03-27] MEDS ORDERED: EPIDURAL/PCA KEYS XX (19:00)
[2018-03-27] MEDS ORDERED: ONDANSETRON 4MG/2ML VIAL (J2405) IV ×3 (19:00→19:15)
[2018-03-27] MEDS: IPRATROPIUM 0.5MG/ALBUTEROL 2.5MG INH SOL UD 3ML (DUONEB)(J7620) NEB (19:06)
[2018-03-27] MEDS ORDERED: MEPERIDINE INJ 25 MG/ML VIAL (J2175) IV (19:15)
[2018-03-27] MEDS ORDERED: METOCLOPRAMIDE INJ 10MG/2ML VIAL (J2765) IV (19:15)
[2018-03-27] MEDS ORDERED: fentaNYL 100 MCG/2 ML INJECTION (J3010) IV (19:15)
[2018-03-27] MEDS ORDERED: PERCOCET 5MG/325MG TAB PO (19:15)
[2018-03-27] MEDS: MORPHINE 1MG/ML IN 0.9% NACL 100ML IV BAG IV (19:54)
[2018-03-27] MEDS: METOPROLOL SUCC *XL* 25MG TAB (TopROL *XL*) PO (21:00)
[2018-03-28] MEDS: IPRATROPIUM 0.5MG/ALBUTEROL 2.5MG INH SOL UD 3ML (DUONEB)(J7620) NEB ×4 (02:00→20:00)
[2018-03-28] MEDS: NS 1,000 ML IV ×3 (03:35→17:28)
[2018-03-28 06:34] LABS: HEMATOCRIT 27.4 % (42.0-52.0); HEMOGLOBIN 9.1 g/dl (13.5-17.5); MEAN CORPUSCULAR HEMOGLOBIN 32.7 pg (27.0-33.0); MEAN CORPUSCULAR HGB CONC 33.2 g/dl (32.0-36.5); MEAN CORPUSCULAR VOLUME 98.6 fl (80.0-96.0); PLATELET COUNT, AUTOMATED 101 10^3/uL (150-450); RED BLOOD COUNT 2.78 10^6/uL (4.30-6.10); RED CELL DISTRIBUTION WIDTH 14.3 % (11.5-14.5)
[2018-03-28 06:47] LABS: ANION GAP 10 MEQ/L (8-16); BLOOD UREA NITROGEN 21 MG/DL (7-18); CALCIUM LEVEL 7.3 MG/DL (8.8-10.2); CARBON DIOXIDE LEVEL 23 MEQ/L (21-32); CHLORIDE LEVEL 109 MEQ/L (98-107); CREATININE FOR GFR 1.23 MG/DL (0.70-1.30); GLOMERULAR FILTRATION RATE > 60.0 (>42); GLUCOSE, FASTING 118 MG/DL (70-100); POTASSIUM SERUM 4.3 MEQ/L (3.5-5.1); SODIUM LEVEL 142 MEQ/L (136-145)
[2018-03-28] MEDS: PANTOPRAZOLE 40MG INJ (PROTONIX) (C9113) IV (09:48)
[2018-03-28] MEDS: FINASTERIDE 5 MG TAB PO (09:49)
[2018-03-28] MEDS: SIMETHICONE 80 MG CHEW TAB PO ×3 (13:00→20:26)
[2018-03-28] MEDS: METOCLOPRAMIDE INJ 10MG/2ML VIAL (J2765) IV (14:17)
[2018-03-28] MEDS ORDERED: PILL CRUSHER/CUTTER 1 EACH XX (14:45)
[2018-03-28] MEDS: ERTAPENEM SODIUM 1 GM in NS MINI-BAG PLUS 50 ML IV (15:20)
[2018-03-28] MEDS: METOPROLOL SUCC *XL* 25MG TAB (TopROL *XL*) PO (20:28)
[2018-03-29] MEDS: NS 1,000 ML IV ×2 (01:15→14:53)
[2018-03-29] MEDS: IPRATROPIUM 0.5MG/ALBUTEROL 2.5MG INH SOL UD 3ML (DUONEB)(J7620) NEB ×4 (02:00→20:36)
[2018-03-29 06:48] LABS: HEMATOCRIT 27.9 % (42.0-52.0); HEMOGLOBIN 9.1 g/dl (13.5-17.5); MEAN CORPUSCULAR HEMOGLOBIN 32.5 pg (27.0-33.0); MEAN CORPUSCULAR HGB CONC 32.6 g/dl (32.0-36.5); MEAN CORPUSCULAR VOLUME 99.6 fl (80.0-96.0); PLATELET COUNT, AUTOMATED 103 10^3/uL (150-450); RED CELL DISTRIBUTION WIDTH 14.6 % (11.5-14.5); WHITE BLOOD COUNT 5.1 10^3/uL (4.0-10.0)
[2018-03-29 06:59] LABS: ANION GAP 6 MEQ/L (8-16); BLOOD UREA NITROGEN 21 MG/DL (7-18); CALCIUM LEVEL 7.4 MG/DL (8.8-10.2); CARBON DIOXIDE LEVEL 25 MEQ/L (21-32); CHLORIDE LEVEL 114 MEQ/L (98-107); CREATININE FOR GFR 1.06 MG/DL (0.70-1.30); GLOMERULAR FILTRATION RATE > 60.0 (>42); GLUCOSE, FASTING 74 MG/DL (70-100); SODIUM LEVEL 145 MEQ/L (136-145)
[2018-03-29] MEDS: SIMETHICONE 80 MG CHEW TAB PO ×4 (09:00→21:00)
[2018-03-29] MEDS: PANTOPRAZOLE 40MG INJ (PROTONIX) (C9113) IV (09:00)
[2018-03-29] MEDS: FINASTERIDE 5 MG TAB PO (09:00)
[2018-03-29] MEDS: PREPARATION H SUPP (HEMORRHOID) PR (10:27)
[2018-03-29] MEDS: MORPHINE 1MG/ML IN 0.9% NACL 100ML IV BAG IV (12:25)
[2018-03-29] MEDS: METOPROLOL SUCC *XL* 25MG TAB (TopROL *XL*) PO (21:00)
[2018-03-30] MEDS: IPRATROPIUM 0.5MG/ALBUTEROL 2.5MG INH SOL UD 3ML (DUONEB)(J7620) NEB ×4 (02:00→20:21)
[2018-03-30] MEDS: NS 1,000 ML IV (02:37)
[2018-03-30 06:57] LABS: HEMATOCRIT 29.7 % (42.0-52.0); HEMOGLOBIN 9.6 g/dl (13.5-17.5); MEAN CORPUSCULAR HEMOGLOBIN 32.7 pg (27.0-33.0); MEAN CORPUSCULAR HGB CONC 32.3 g/dl (32.0-36.5); PLATELET COUNT, AUTOMATED 106 10^3/uL (150-450); RED BLOOD COUNT 2.94 10^6/uL (4.30-6.10); RED CELL DISTRIBUTION WIDTH 14.8 % (11.5-14.5); WHITE BLOOD COUNT 4.9 10^3/uL (4.0-10.0)
[2018-03-30 07:10] LABS: ANION GAP 9 MEQ/L (8-16); BLOOD UREA NITROGEN 18 MG/DL (7-18); CALCIUM LEVEL 7.5 MG/DL (8.8-10.2); CARBON DIOXIDE LEVEL 21 MEQ/L (21-32); CHLORIDE LEVEL 109 MEQ/L (98-107); CREATININE FOR GFR 0.89 MG/DL (0.70-1.30); GLOMERULAR FILTRATION RATE > 60.0 (>42); GLUCOSE, FASTING 59 MG/DL (70-100); POTASSIUM SERUM 4.1 MEQ/L (3.5-5.1); SODIUM LEVEL 139 MEQ/L (136-145)
[2018-03-30] MEDS: SIMETHICONE 80 MG CHEW TAB PO ×4 (08:20→21:29)
[2018-03-30] MEDS: PREPARATION H SUPP (HEMORRHOID) PR (09:00)
[2018-03-30] MEDS: PANTOPRAZOLE 40MG INJ (PROTONIX) (C9113) IV (09:18)
[2018-03-30] MEDS: FINASTERIDE 5 MG TAB PO (09:19)
[2018-03-30] MEDS: D5W/0.45% SODIUM CHLORIDE 1,000 ML IV (11:24)
[2018-03-30 15:39] LABS: BEDSIDE GLUCOSE 82 MG/DL (83-110)
[2018-03-30] MEDS: METOPROLOL SUCC *XL* 25MG TAB (TopROL *XL*) PO (21:30)
[2018-03-31 02:00] LABS: BEDSIDE GLUCOSE 111 MG/DL (83-110)
[2018-03-31] MEDS: IPRATROPIUM 0.5MG/ALBUTEROL 2.5MG INH SOL UD 3ML (DUONEB)(J7620) NEB ×4 (02:00→19:52)
[2018-03-31] MEDS: D5W/0.45% SODIUM CHLORIDE 1,000 ML IV (06:00)
[2018-03-31 06:17] LABS: HEMATOCRIT 27.9 % (42.0-52.0); HEMOGLOBIN 9.3 g/dl (13.5-17.5); MEAN CORPUSCULAR HEMOGLOBIN 32.5 pg (27.0-33.0); MEAN CORPUSCULAR HGB CONC 33.3 g/dl (32.0-36.5); MEAN CORPUSCULAR VOLUME 97.6 fl (80.0-96.0); PLATELET COUNT, AUTOMATED 105 10^3/uL (150-450); RED BLOOD COUNT 2.86 10^6/uL (4.30-6.10); RED CELL DISTRIBUTION WIDTH 14.6 % (11.5-14.5); WHITE BLOOD COUNT 3.6 10^3/uL (4.0-10.0)
[2018-03-31 06:36] LABS: ANION GAP 7 MEQ/L (8-16); BLOOD UREA NITROGEN 15 MG/DL (7-18); CALCIUM LEVEL 8.1 MG/DL (8.8-10.2); CARBON DIOXIDE LEVEL 26 MEQ/L (21-32); CHLORIDE LEVEL 108 MEQ/L (98-107); CREATININE FOR GFR 0.86 MG/DL (0.70-1.30); GLOMERULAR FILTRATION RATE > 60.0 (>42); GLUCOSE, FASTING 116 MG/DL (70-100); POTASSIUM SERUM 3.9 MEQ/L (3.5-5.1); SODIUM LEVEL 141 MEQ/L (136-145)
[2018-03-31] MEDS: FINASTERIDE 5 MG TAB PO (10:13)
[2018-03-31] MEDS ORDERED: ACETAMINOPHEN 325 MG/10.15 ML UDC PO (11:45)
[2018-03-31] MEDS: METOPROLOL SUCC *XL* 25MG TAB (TopROL *XL*) PO (21:49)
[2018-04-01] MEDS: IPRATROPIUM 0.5MG/ALBUTEROL 2.5MG INH SOL UD 3ML (DUONEB)(J7620) NEB ×4 (01:21→20:00)
[2018-04-01] MEDS: FINASTERIDE 5 MG TAB PO (09:25)
[2018-04-01] MEDS: SIMETHICONE 80 MG CHEW TAB PO ×2 (13:46→18:48)
[2018-04-01] MEDS: ONDANSETRON 4MG/2ML VIAL (J2405) IV (18:48)
[2018-04-01] MEDS: METOPROLOL SUCC *XL* 25MG TAB (TopROL *XL*) PO (21:07)
[2018-04-01] MEDS: ACETAMINOPHEN/CODEINE 300MG/30MG 12.5 ML UDC PO (23:11)
[2018-04-02] MEDS: IPRATROPIUM 0.5MG/ALBUTEROL 2.5MG INH SOL UD 3ML (DUONEB)(J7620) NEB ×4 (01:08→21:16)
[2018-04-02 05:55] LABS: HEMOGLOBIN 9.8 g/dl (13.5-17.5); MEAN CORPUSCULAR HEMOGLOBIN 32.2 pg (27.0-33.0); MEAN CORPUSCULAR HGB CONC 33.8 g/dl (32.0-36.5); MEAN CORPUSCULAR VOLUME 95.4 fl (80.0-96.0); PLATELET COUNT, AUTOMATED 125 10^3/uL (150-450); RED BLOOD COUNT 3.04 10^6/uL (4.30-6.10); RED CELL DISTRIBUTION WIDTH 14.7 % (11.5-14.5); WHITE BLOOD COUNT 4.3 10^3/uL (4.0-10.0)
[2018-04-02 06:20] LABS: ANION GAP 7 MEQ/L (8-16); BLOOD UREA NITROGEN 18 MG/DL (7-18); CALCIUM LEVEL 8.5 MG/DL (8.8-10.2); CARBON DIOXIDE LEVEL 28 MEQ/L (21-32); CHLORIDE LEVEL 107 MEQ/L (98-107); CREATININE FOR GFR 0.94 MG/DL (0.70-1.30); GLOMERULAR FILTRATION RATE > 60.0 (>42); GLUCOSE, FASTING 127 MG/DL (70-100); POTASSIUM SERUM 3.8 MEQ/L (3.5-5.1); SODIUM LEVEL 142 MEQ/L (136-145)
[2018-04-02] MEDS: FINASTERIDE 5 MG TAB PO (09:36)
[2018-04-02] MEDS: raNITIdine SYRUP 150 MG/10 ML UDC PO ×2 (09:36→20:51)
[2018-04-02] MEDS: PREPARATION H SUPP (HEMORRHOID) PR (09:36)
[2018-04-02] MEDS: DOCUSATE SOD LIQ 100MG/10ML UDC PO ×2 (09:37→20:51)
[2018-04-02] MEDS: MAALOX 30 ML SUSP *UDC PO ×2 (09:37→18:11)
[2018-04-02] MEDS ORDERED: FENTANYL REMOVAL DOCUMENTATION MISC XX (12:00)
[2018-04-02] MEDS ORDERED: fentaNYL 25 MCG/HR PATCH TOP (12:00)
[2018-04-02 16:29] LABS: BEDSIDE GLUCOSE 109 MG/DL (83-110)
[2018-04-02] MEDS: METOPROLOL SUCC *XL* 25MG TAB (TopROL *XL*) PO (20:51)
[2018-04-03] MEDS: IPRATROPIUM 0.5MG/ALBUTEROL 2.5MG INH SOL UD 3ML (DUONEB)(J7620) NEB ×4 (02:00→20:16)
[2018-04-03 06:02] LABS: HEMATOCRIT 27.5 % (42.0-52.0); HEMOGLOBIN 9.1 g/dl (13.5-17.5); MEAN CORPUSCULAR HEMOGLOBIN 32.4 pg (27.0-33.0); MEAN CORPUSCULAR HGB CONC 33.1 g/dl (32.0-36.5); MEAN CORPUSCULAR VOLUME 97.9 fl (80.0-96.0); PLATELET COUNT, AUTOMATED 115 10^3/uL (150-450); RED BLOOD COUNT 2.81 10^6/uL (4.30-6.10); RED CELL DISTRIBUTION WIDTH 14.6 % (11.5-14.5); WHITE BLOOD COUNT 4.5 10^3/uL (4.0-10.0)
[2018-04-03 06:16] LABS: ANION GAP 8 MEQ/L (8-16); BLOOD UREA NITROGEN 20 MG/DL (7-18); CALCIUM LEVEL 8.3 MG/DL (8.8-10.2); CARBON DIOXIDE LEVEL 27 MEQ/L (21-32); CHLORIDE LEVEL 109 MEQ/L (98-107); CREATININE FOR GFR 0.98 MG/DL (0.70-1.30); GLOMERULAR FILTRATION RATE > 60.0 (>42); GLUCOSE, FASTING 102 MG/DL (70-100); POTASSIUM SERUM 3.6 MEQ/L (3.5-5.1); SODIUM LEVEL 144 MEQ/L (136-145)
[2018-04-03] MEDS: FINASTERIDE 5 MG TAB PO (08:05)
[2018-04-03] MEDS: raNITIdine SYRUP 150 MG/10 ML UDC PO ×2 (08:05→21:23)
[2018-04-03] MEDS: ONDANSETRON 4MG/2ML VIAL (J2405) IV (08:05)
[2018-04-03] MEDS: DOCUSATE SOD LIQ 100MG/10ML UDC PO ×3 (08:05→21:23)
[2018-04-03] MEDS: PREPARATION H SUPP (HEMORRHOID) PR ×2 (08:06→08:18)
[2018-04-03] MEDS: KCL 40MEQ IN D5/0.45NS 1000ML 1,000 ML IV ×2 (08:06→17:11)
[2018-04-03] MEDS ORDERED: ONDANSETRON 4 MG TAB (S0181) PO (15:30)
[2018-04-03] MEDS: SUCRALFATE SUSP 1GM/10ML UD PO ×2 (17:11→21:23)
[2018-04-03] MEDS: METOPROLOL SUCC *XL* 25MG TAB (TopROL *XL*) PO (21:23)
[2018-04-04] MEDS: IPRATROPIUM 0.5MG/ALBUTEROL 2.5MG INH SOL UD 3ML (DUONEB)(J7620) NEB ×2 (01:42→08:00)
[2018-04-04] MEDS: KCL 40MEQ IN D5/0.45NS 1000ML 1,000 ML IV (02:14)
[2018-04-04] MEDS: raNITIdine SYRUP 150 MG/10 ML UDC PO (08:45)
[2018-04-04] MEDS: DOCUSATE SOD LIQ 100MG/10ML UDC PO (08:45)
[2018-04-04] MEDS: SUCRALFATE SUSP 1GM/10ML UD PO (08:45)
[2018-04-04] MEDS: PREPARATION H SUPP (HEMORRHOID) PR ×2 (08:46→08:49)
[2018-04-04] MEDS: FINASTERIDE 5 MG TAB PO (08:46)
== END 2018-04-04 12:18 | disposition home health service (06) | DRG 346 ==
LOC: M OR 12:54 → M MSPAV 20:25
PROC: 0DSM4ZZ Reposition Descending Colon, Percutaneous Endoscopic Approach (ICD-10-PCS; principal; 2018-03-27 15:30)
DX: Z43.3 Encounter for attention to colostomy (principal); K29.70 Gastritis, unspecified, without bleeding; K21.9 Gastro-esophageal reflux disease without esophagitis; K43.2 Incisional hernia without obstruction or gangrene; I10 Essential (primary) hypertension; Z95.0 Presence of cardiac pacemaker; Z90.49 Acquired absence of other specified parts of digestive tract; Z79.82 Long term (current) use of aspirin; Z79.899 Other long term (current) drug therapy; Z85.09 Personal history of malignant neoplasm of other digestive organs

== ENCOUNTER → 2018-07-10 | Outpatient (REF) | payer MEDICARE ==
[2018-07-10 17:38] LABS: PLATELET COUNT, AUTOMATED 153 10^3/uL (150-450)
[2018-07-10 17:50] LABS: INR 1.03; PROTHROMBIN TIME 13.6 SECONDS (12.1-14.4)
[2018-07-10 17:51] LABS: PARTIAL THROMBOPLASTIN TIME 35.3 SECONDS (25.4-37.6)
[2018-07-10 18:07] LABS: ERYTHROCYTE SEDIMENTATION RATE 58 mm/hr (0-20)
[2018-07-14 00:11] LABS: ANCA-ATYPICAL <1:20 titer (Neg:<1:20); ANTI DOUBLE STRAND-DNA AB <1 IU/mL (0-9); ANTINUCLEAR ANTIBODIES DIRECT Negative (Negative); CYTOPLASMIC NEUTROP AB ANCA-C <1:20 titer (Neg:<1:20); PERINUCLEAR AB ANCA-P <1:20 titer (Neg:<1:20); RNP ANTIBODIES <0.2 AI (0.0-0.9); SJOGREN'S ANTI SS-A <0.2 AI (0.0-0.9); SJOGREN'S ANTI SS-B 0.2 AI (0.0-0.9); SMITH ANTIBODIES <0.2 AI (0.0-0.9)
== END ==
LOC: M LAB REF 17:06
DX: R91.8 Other nonspecific abnormal finding of lung field (principal)
CPT/HCPCS: 86255

== ENCOUNTER → 2018-07-23 | Outpatient (CLI) | payer MEDICARE ==
[~2018-07-23] MED LIST changes: +AMLO5TAB4 PO; +ASPI81TAEC PO; +ATOR1TAB21 PO; +DOCU250C7 PO; +FINA5TAB2 PO; +LIDOCAINE 1% MDV 20ML VIAL As Ordered ONE; -LIDOCAINE 2% MDV 20 ML VIAL As Ordered; +LISI-542 PO; +LISI10TA4 PO; +METO1TAB32 PO; +METO1TAB87 PO; -PROPOFOL 200 MG/20 ML VIAL As Ordered; +RANI150T PO; +RANI1TAB6 PO; +SUCR10SS PO; +TYLE167L PO
--- NOTE | 2018-07-23 15:12 | REP ---
PA CHEST X-RAY: SINGLE VIEW. HISTORY: Status post right lung biopsy. 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 There is a large soft tissue mass opacity in the right medial lung base which was the biopsy target. There is no evidence of pneumothorax or hydrothorax. Heart size is normal. Left lung is clear. IMPRESSION: No pneumothorax or other complication seen. Large mass right lung base. Electronically Signed by Jonathan Lynn MD 07/23/2018 08:11 P
--- NOTE | 2018-07-23 19:57 | REP ---
CT-GUIDED RIGHT LOWER LOBE LUNG BIOPSY The procedure was performed under the direct supervision of Dr. Lynn. The the patient has a history of eighth red mass in the right lower lobe measuring 5.5 x 8.8 x 9.5 cm seen on a previous CT scan from [facility] performed on 07/05/2018. The risks and benefits of the procedure were explained to the patient and informed consent was obtained. The right lower lobe lung mass was localized using CT guidance. The skin was prepped and draped in a sterile fashion. 1% lidocaine was used as a local anesthetic. Using CT guidance a 19/20 gauge coaxial needle biopsy system was inserted and advanced into the mass. Eight core biopsy samples were obtained and sent to lab. The patient tolerated the procedure well and there were no immediate complications. After the appropriate amount of monitored convalescence the patient was discharged from the department. Reviewed by JAH Caal 07/23/2018 04:54 P Electronically Signed by Jonathan Lynn MD 07/23/2018 07:48 P
== END ==
LOC: M RADPRO 12:11
PROVIDERS: ATTEND Internal Medicine Pulmonary Disease
DX: C34.31 Malignant neoplasm of lower lobe, right bronchus or lung (principal); Z79.82 Long term (current) use of aspirin; Z79.899 Other long term (current) drug therapy

== ENCOUNTER → 2018-08-28 | Outpatient (CLI) | payer MEDICARE ==
[~2018-08-28] MED LIST changes: -AMLO5TAB4 PO; +AMLO5TAB6 PO; -LIDOCAINE 1% MDV 20ML VIAL As Ordered ONE
--- NOTE | 2018-08-29 08:02 | REP ---
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 Comparisons: Comparison is made with CT study of the chest from July 05, 2018 and January 05, 2018. Comparison PET-CT study is from August 14, 2014. TECHNIQUE: 1 hour 11 minutes following the intravenous injection of a 8.1 mCi dose of F-18 FDG, three-dimensional PET scintigraphy is acquired from the skull base to the proximal thighs. Triplanar noncontrast CT scanning is acquired through the same anatomic range for attenuation correction, and image registration with scan parameters optimized to minimize radiation exposure to the patient. PET scintigraphy and CT datasets were fused and displayed on a workstation with multiplanar and projection display capability. PET/CT Findings: The biopsy-proven malignant mass in the right lower lobe is quite hypermetabolic, maximum standard uptake value within it is 27.0. The mass lesion spans a 6.6 cm transverse dimension by 4.2 cm anterior to posterior by 8.2 cm cranial to caudal. There is hypermetabolic right hilar lymphadenopathy inferiorly with maximum standard uptake value 14.2. Subcarinal hypermetabolic adenopathy is seen in a fairly large subcarinal lymph node which measures 4.0 by 2.6 cm. Maximum standard uptake value within this it is 25.5. There is a left mandy carinal mediastinal lymph node which is hypermetabolic. Maximum standard uptake value 13.9. This is a normal sized node. There are three small but hypermetabolic lymph nodes near the thoracic inlet in the right paratracheal region with maximum standard uptake value 11.7. No hypermetabolic adenopathy is seen in the neck itself. There is a hypermetabolic nodule more superiorly positioned in the right lower lobe above the main mass. Maximum standard uptake value within this is 4.4. This nodule measures 8 mm. No other hypermetabolic pulmonary parenchymal lesion is seen. In the abdomen and pelvis, there is normal FDG distribution. No abnormal adrenal, hepatic or intra-abdominal nasrin hypermetabolic uptake is seen. The patient is status post aorto bi iliac stent graft placement. Impression: Hypermetabolic activity is seen within the biopsy-proven malignant right lower lobe mass as well as a smaller right lower lobe nodule, right inferior hilar, subcarinal, right and left paratracheal mediastinal lymphadenopathy. Electronically Signed by Jonathan Lynn MD 08/29/2018 07:53 A
== END ==
LOC: M PLARAD 11:57
PROVIDERS: ATTEND Internal Medicine Pulmonary Disease
DX: C34.31 Malignant neoplasm of lower lobe, right bronchus or lung (principal)
CPT/HCPCS: 78815; A9552

== ENCOUNTER → 2018-09-18 | Outpatient (CLI) | payer MEDICARE ==
--- NOTE | 2018-09-20 15:15 | RADONC ---
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 He now presents with a new primary in the right lower lobe (squamous cell carcinoma). STAGE: [id number], group stage PRASANNA. ICD-10 CODE: C - 34.3. HISTORY OF PRESENT ILLNESS: The patient is a 77-year-old man who has been followed in this clinic for a known head and neck primary for which he was treated in 2013. 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 He received a total of 7000 cGy and reportedly has no evidence of recurrence. He was been worked up preoperatively because of other issues, more specifically he was having a colostomy reversal secondary to a perforated diverticulum. He had been given a Kirsty's procedure. The surgery went relatively well with no significant complications with the exception of some minor clotting. It was during the preoperative evaluation that an abnormality was noticed in the right lower lung. He saw Dr. Zach Daugherty for this and was apparently asked to follow-up at three month intervals. He had some dysphagia and he was at high risk for aspiration pneumonia. The CT scan was repeated and at this time the infiltrate had continued to increase and the CT-guided biopsy was recommended and performed. The biopsy dated 07/23/2018 revealed a nonkeratinizing squamous cell carcinoma, moderately to well differentiated PDL negative. The initial CT scan was obtained in January and the right lower lobe mass measured 4.6 x 5.2 x 4 cm. When it was repeated in July it had increased to 5.5 x 8.8 x 9.5 cm. A PET scan was ordered and the PET scan revealed hypermetabolic activity in the right lower lobe with a smaller right lower lobe nodule in the right inferior hilar area, subcarinal region and right and left paratracheal mediastinal lymphadenopathy. It was felt that this stage at this time would be compatible with stage [id number]. He has seen medical oncology, and Dr. Wray is contemplating her chemotherapeutic options for this gentleman. He is also seeing Dr. Zach Daugherty. This gentleman is in relatively good condition as he appears well-nourished and alert, and is here to discuss his options with regards to radiotherapy. PAST MEDICAL HEALTH: Emphysema. He has a history of pacemaker placement. Soft palate cancer status post resection and treated with radiotherapy in 2014. He had a feeding tube placement in the past. Has a history of diverticulitis with a ruptured diverticulum. He had a colostomy. Essential hypertension. History of duodenal ulcer disease. Aortic aneurysm. Tonsillectomy. Cataract ectomy. Tobacco and previous alcohol abuse. ALLERGIES: 1. IODINE. FAMILY HISTORY: A brother had lung cancer and a grandmother with lung cancer. His succumbed to cancer shortly after completion of his treatment for his head and neck cancer. TOBACCO HISTORY: He is a former smoker but stopped in 2018. ALCOHOL HISTORY: Former heavy drinker, but has currently stopped. MEDICATIONS: - aspirin 81 mg - docusate - finasteride 5 mg p.o. daily - metoprolol 25 mg p.o. q.h.s. - ranitidine hydrochloride 150 mg p.o. b.i.d. - Carafate 1 gram p.o. q.h.s. REVIEW OF SYSTEMS: HEAD/NECK: He has had neither headache, nausea, vomiting, visual disturbances or difficulty swallowing. He does have a chronic dry mouth. LUNGS: The patient has an occasional cough without hemoptysis. He has no significant pain in his chest. CARDIOVASCULAR: He has a history of hypertension but denies rhythmic irregularities. ABDOMINAL: The patient has a colostomy reversal but had a history of diverticulitis. He apparently has fairly regular bowel movements. He has regained some of his weight and has a relatively good appetite. EXAMINATION FINDINGS: The patient is a slender male in no acute distress. ORAL CAVITY: Edentulous with no evidence of intraoral lesions. Mucous membranes are somewhat dry. LYMPHATICS: No palpable peripheral lymphadenopathy noted in the cervical, supraclavicular, axillary or inguinal lymph node chains. LUNGS: Hyperresonant to percussion and breath sounds distant consistent with COPD. HEART: Regular without murmurs. ABDOMEN: Without evidence of hepatomegaly, masses, deep abdominal tenderness. EXTREMITIES: Without cyanosis, clubbing or edema. NEUROLOGIC: Examination grossly physiologic and nonfocal. VITALS: Weight 139.5, temperature 97.8, pulse 64, respirations 15, blood pressure 152/84, oxygen saturation 97%. LABORATORY DATA/X-RAY FINDINGS: Hemoglobin 11.6, platelets 159,000, WBC 5.6. CT scans in February revealing a 4.6 x 5.2 x 4 cm nodule in the right lower lobe. Most recent CT scans obtained in July of 2018 reveal an increase of the right lower lobe mass to 5.5 x 8.8 x 9.5 cm. PET scan revealed hypermetabolic activity in the right lower lobe with a smaller right lower nodule in the right inferior hilar region, subcarinal area, right and left paratracheal mediastinal lymphadenopathy as well. IMPRESSION: Stage [id number] squamous cell carcinoma involving the right lung with mediastinal metastasis and a satellite lesion which is FDG avid. This pathology revealed, as stated, a squamous cell carcinoma which is PD-L1 negative. PLAN OF RADIOTHERAPY: The patient would be an appropriate candidate for external beam radiotherapy, possibly combined with concomitant chemotherapy. I would anticipate approximately 6-1/2 weeks of external beam radiotherapy at conventional fractionation. Prior to treatment delivery localization will be accomplished on our CT simulator and treatment portals defined by the use of multileaf collimators. The indications, possible side effects, as well as alternatives to radiotherapy, including but not limited to possible radiation pneumonitis, increasing shortness of breath, exacerbation of coughing, fatigue, esophagitis and potential cardiac arrest have all been explained to the patient in detail. He understands and is willing to proceed with external beam radiotherapy. A CT scan for radiation treatment planning purposes will be ordered for the patient. Thank you for allowing us the opportunity of participation in the management of this patient. cc: MD Danielle Reyes MD Rory Sears, DO [facility]
== END ==
LOC: M ONCR 09:48
PROVIDERS: ATTEND Radiology Radiation Oncology
DX: C34.31 Malignant neoplasm of lower lobe, right bronchus or lung (principal)

== ENCOUNTER → 2018-10-11 | Outpatient (CLI) | payer MEDICARE ==
[~2018-10-11] MED LIST changes: +DEXA4TA PO; +ONDA4TAB6 PO
--- NOTE | 2018-10-11 11:32 | REP ---
LUNG DIFFERENTIAL VENTILATION AND PERFUSION SCAN: Following the intravenous administration of 1 mCi of technetium 99m tagged MAA and the inhalation of 2 mCi of technetium 99m DTPA Aerosol, images of the lungs are obtained in the anterior and posterior projections. There are matching ventilation and perfusion defects in the right upper and lower lobes. Differential counts were obtained in the upper, middle, and lower thirds of each lung. The mean perfusion of the left lung is 51.6% and of the right lung is 48.4%. The mean ventilation of the left lung is 53.1% and right lung 46.9%. Electronically Signed by Fitz Gregory MD 10/11/2018 05:04 P
--- NOTE | 2018-10-11 12:14 | REP ---
CHEST X-RAY: Two views. HISTORY: Lung carcinoma. COMPARISON STUDY: July 23, 2018. FINDINGS: There is a large opacity in the right lower lobe posteriorly unchanged from July 23, 2018. An infiltrate is seen peripheral to this in the right base which appears slightly more prominent. Dual lead pacemaker is again noted in the right heart via the left side. Lung [place] are otherwise clear. There are degenerative changes in the thoracic spine. The lungs are somewhat hyperinflated as before. IMPRESSION: Pacemaker in place. Large mass right lower lobe with peripheral infiltrate in the right base essentially unchanged. Hyperinflation. Pacemaker. Aortic stent graft visible in the upper abdomen. Electronically Signed by Jonathan Lynn MD 10/11/2018 01:39 P
== END ==
LOC: M RAD 09:12
PROVIDERS: ATTEND Radiology Radiation Oncology
DX: C34.31 Malignant neoplasm of lower lobe, right bronchus or lung (principal)
CPT/HCPCS: 71046; 78598; A9540; A9567

== ENCOUNTER 2018-11-20 13:15 | Outpatient (RCR) | payer MEDICARE ==
--- NOTE | 2018-11-06 14:45 | RADONC ---
RADIATION ONCOLOGY PROGRESS NOTE DATE: 11/05/2018 CHART NUMBER: [id number] PROGRESS NOTE: Mr. Curry is presently at a dose of 2600 cGy to his lung and is tolerating treatments quite well at this point with no significant difficulties related to his radiation therapy. He continues have some stomach discomfort and was admitted for pancreatitis. Otherwise, he is doing fairly well at this point. He has no increased shortness of breath. REVIEW OF SYSTEMS: The patient's review of systems is positive for some stomach discomfort as well as some weight loss but is otherwise noncontributory. Denies nausea, vomiting, fevers, chills, night sweats, diplopia, headaches, anxiety or depression, anorexia, visual disturbances, chest pain, urinary or bowel difficulties, bone pain, or neurological problems. PHYSICAL EXAMINATION: The patient's weight is down a total of 6 pounds over the past 2 weeks, but he was hospitalized during that time. The patient's skin otherwise is in good condition with no evidence of radiation change present. The remainder of his physical exam remains unchanged. Mr. Curry is tolerating treatments quite well and radiation will continue as scheduled.
--- NOTE | 2018-11-12 14:31 | RADONC ---
RADIATION ONCOLOGY PROGRESS NOTE DATE: 11/12/2018 CHART NUMBER: [id number] Mr. Curry is presently at a dose of 3600 cGy to his right lung and is tolerating treatments quite well at this point with no complaints related to his radiation therapy. He is having no significant problems at this time except for his thrush. Apparently he has been treated by medical oncology with multiple agents at this point and he continues to have thrush. I am not aware of which medications he has been given and therefore I have recommended that he speak with his medical oncologist, otherwise I would have given him something at this time. In the meantime radiation as well tolerated and will continue as scheduled. On Physical exam, his oral cavity shows trush. His skin is in good condition and the remainder of his physical exam is unchanged. Rt will continue as scheduled. He will be seeing his Medical Oncologist for change in his thrush medication. TYED
--- NOTE | 2018-11-19 14:51 | RADONC ---
RADIATION ONCOLOGY PROGRESS NOTE DATE: 11/19/2018 CHART NUMBER: [id number] Mr. Curry with a diagnosis of squamous cell carcinoma of the right lower lobe, stage [id number], group stage PRASANNA, is currently receiving radiotherapy to the lung tumor. His dose to date is 4600 cGy of an anticipated 6600 cGy. He is tolerating his therapy reasonably well with the exception of some odynophagia/dysphagia. REVIEW OF SYSTEMS: The patient does complain of weakness secondary to inability to eat. 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 He denies any nausea, vomiting, significant coughing or sputum production and he will receive chemotherapy tomorrow and hopefully be hydrated. He has lost approximately 6 pounds this week. EXAMINATION FINDINGS: The skin within the irradiated volume shows neither erythema nor desquamation. Lymphatics: No palpable peripheral lymphadenopathy is appreciated. The remainder of the physical examination is unchanged with the exception of cachexia secondary to weight loss. IMPRESSION: Tolerating therapy reasonably well but with symptoms of rapid weight loss secondary to dysphagia/odynophagia. PLAN: We have given him a prescription for some Carafate solution and hopefully he will be hydrated when he gets his chemotherapy. MTDD
[~2018-11-20 13:15] MED LIST changes: +CLOT10TR PO; +LOPE2CA PO; +MAGICMW SSP; +NYST50SS PO; +PATIENT COMMENTS; +RANI150T; -RANI150T PO; +SUCR1SS PO
[2018-11-22] MEDS ORDERED: LOPE1CAP5 PO (18:09)
[2018-11-22] MEDS ORDERED: DECA4TAB PO (18:09)
[2018-11-22] MEDS ORDERED: SUCR1SS PO (18:09)
[2018-11-22] MEDS ORDERED: FINA5TAB2 PO (18:09)
[2018-11-22] MEDS ORDERED: ONDA4TAB6 PO (18:10)
--- NOTE | 2018-11-29 07:11 | RADONC ---
RADIATION ONCOLOGY PROGRESS NOTE DATE: 11/27/2018 CHART #: [id number] Mr. Curry is thus far at a dose of 4800 cGy to his right lung and was last treated on 11/20/2018. The patient called and said he did not feel up to coming in today. He has been anemic and just underwent a transfusion. He had been tolerating his treatments well prior to this and I suspect he should be able to return to initiate radiation tomorrow. We will continue to follow him closely.
== END 2018-12-04 ==
LOC: M ONCR 13:15
PROVIDERS: ATTEND Radiology Radiation Oncology
DX: C34.31 Malignant neoplasm of lower lobe, right bronchus or lung (principal)

== ENCOUNTER 2018-11-22 16:02 | Inpatient (IN) | payer MEDICARE ==
[~2018-11-22] VITALS: Ht 175.3 cm; Wt 51.3 kg
[2018-11-22 16:37] LABS: BASO % 0.8 % (0.0-1.0); EOS % 1.2 % (0.0-3.0); HEMATOCRIT 31.9 % (42.0-52.0); HEMOGLOBIN 10.5 g/dl (13.5-17.5); LYMPH # 0.3 10^3/uL (1.5-4.5); LYMPH % 10.2 % (24.0-44.0); MEAN CORPUSCULAR HEMOGLOBIN 29.8 pg (27.0-33.0); MEAN CORPUSCULAR HGB CONC 32.9 g/dl (32.0-36.5); MEAN CORPUSCULAR VOLUME 90.6 fl (80.0-96.0); MONO # 0.1 10^3/uL (0.0-0.8); MONO % 5.1 % (0.0-5.0); NEUTROPHILS % 78.4 % (36.0-66.0); RED BLOOD COUNT 3.52 10^6/uL (4.30-6.10); WHITE BLOOD COUNT 2.6 10^3/uL (4.0-10.0)
[2018-11-22] MEDS ORDERED: NS 1,000 ML IV ONE (16:45)
--- NOTE | 2018-11-22 16:54 | REP ---
Chest one-view HISTORY: Weakness Comparison: 10/27/2018 The lungs are hyperinflated. An increase in interstitial markings is present in the lower lobes consistent with chronic interstitial fibrosis. Parenchymal scarring is present in the right lung apex. An ill-defined mass is present in the right lower lobe unchanged compared to the previous study. The heart is normal in size. The pulmonary vasculature is normal in appearance. A cardiac pacemaker is present. Impression: 1. Bibasilar chronic interstitial fibrosis. 2. Right lung apex scarring. 3. There has been no definite change in size of the ill-defined right lower lobe mass. Electronically Signed by Kofi Inman MD 11/22/2018 04:45 P
[2018-11-22 17:17] LABS: ALBUMIN 2.8 GM/DL (3.2-5.2); ALT/SGPT 28 U/L (12-78); BILIRUBIN,DIRECT 0.2 MG/DL (0.0-0.2); BILIRUBIN,TOTAL 0.9 MG/DL (0.2-1.0); BLOOD UREA NITROGEN 30 MG/DL (7-18); CALCIUM LEVEL 8.2 MG/DL (8.8-10.2); CARBON DIOXIDE LEVEL 23 MEQ/L (21-32); CHLORIDE LEVEL 105 MEQ/L (98-107); CPK CREATINE PHOSPHOKINASE 343 U/L (39-308); CREATININE FOR GFR 1.17 MG/DL (0.70-1.30); GLOMERULAR FILTRATION RATE > 60.0 (>42); GLUCOSE, FASTING 99 MG/DL (70-100); MB/CK RELATIVE INDEX 4.58 (< OR =4); POTASSIUM SERUM 3.7 MEQ/L (3.5-5.1); SODIUM LEVEL 138 MEQ/L (136-145); TOTAL PROTEIN 5.4 GM/DL (6.4-8.2); TROPONIN I 0.02 NG/ML (< 0.10)
[2018-11-22 17:26] LABS: PLATELET COUNT, AUTOMATED 79 10^3/uL (150-450)
[2018-11-22] MEDS ORDERED: FINA5TAB2 PO (18:09)
[2018-11-22] MEDS ORDERED: LOPE1CAP5 PO (18:09)
[2018-11-22] MEDS ORDERED: DECA4TAB PO (18:09)
[2018-11-22] MEDS ORDERED: SUCR1SS PO (18:09)
[2018-11-22] MEDS ORDERED: ONDA4TAB6 PO (18:10)
[2018-11-22] MEDS ORDERED: ACETAMINOPHEN TAB 650MG DOSE (2X325MG) PO PRN (19:15)
[2018-11-22] MEDS ORDERED: LOPERAMIDE 2 MG CAP PO PRN (19:15)
--- NOTE | 2018-11-22 19:38 | HPEPDOC ---
General Date of Admission Nov 22, 2018 at 18:40 Chief Complaint The patient is a 78-year-old male admitted with a reason for visit of Dehydrati on Generalized Weakness. Source: Patient History of Present Illness The patient is a 78-year-old gentleman with a previous history of oral cancer status post radiation as well as right lower lobe small cell cancer currently on chemotherapy with previous round on Monday who presents to the ER with complaints of diarrhea as a generalized weakness. The diarrhea has been going on today. However, patient has also been unable to eat or drink over the last couple of days. Reports she has been lying down in the bed because of the weakness and has not been able to swallow secondary to pain which he usually gets with the chemotherapy. Denies any associated abdominal pain. Does report some dizziness when he gets up. Reports some chills but no sweats. Occasional nausea. Has not been able to ambulate much secondary to the generalized weakness. Denies feeling overtly short of breath. Denies any chest pain or cough at this time. Denies any headache. Has not been urinating much. Home Medications Scheduled Finasteride (Finasteride) 5 Mg Tablet, 5 MG PO DAILY, (Reported) Metoprolol Succinate (Metoprolol Succinate) 25 Mg Tab, 25 MG PO QHS, (Reported) Ranitidine HCl (Ranitidine HCl) 150 Mg Tab, 1 TAB BID, (Reported) Sucralfate (Carafate) 1 Gm/10 Ml Oral.susp, 10 ML PO ACHS, (Reported) Scheduled PRN Dexamethasone (Decadron) 4 Mg Tablet, 6 MG PO BID PRN for CHEMOTHERAPY, (Reported) TAKES 1 1/2 TAB (6 MG) 12 HOURS AND 6 HOURS PRIOR TO CHEMOTHERAPY Loperamide HCl (Loperamide) 2 Mg Capsule, 4 MG PO Q6H PRN for AFTER EACH LOOSE STOOL, (Reported) Ondansetron (Ondansetron Odt) 4 Mg Tab.rapdis, 4 MG PO Q8H PRN for NAUSEA, (Reported) Allergies Coded Allergies: No Known Allergies (Unverified , 03/27/18) Past Medical History Medical History Oral cancer status post radiation, 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 on chemotherapylast session on Monday, chemotherapy associated diarrhea, hypertension, 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 Lying in bed.) Eye Exam: Positive: PERRLA ENT Exam: Positive: Mucous membr. moist/pink, Other ENT (superficial mucosal ulceration on the anterior aspect of the tongue) Chest Exam: Positive: Clear to auscultation, Normal air movement; Negative: Rales, Rhonchi, Wheezing Heart Exam: Positive: Tachycardic, Normal S1, Normal S2 Abdomen Exam: Positive: Normal bowel sounds, Soft; Negative: Tenderness Skin Exam: Positive: Nl turgor and temperature Neuro Exam: Positive: Other (awake, alert, answering questions appropriately. Oriented 3. Moving all 4 extremities.) Psych Exam: Positive: Mental status NL Vital Signs Vital Signs Date Time Temp Pulse Resp B/P (MAP) Pulse Ox O2 Delivery O2 Flow Rate FiO2 11/22/18 18:45 122 16 106/60 (75) 95 Room Air 11/22/18 16:15 96.6 Laboratory Data Labs 24H Laboratory Tests 2 11/22/18 16:29: Immature Granulocyte % (Auto) 4.3H, White Blood Count 2.6L, Red Blood Count 3.52L, Hemoglobin 10.5L, Hematocrit 31.9L, Mean Corpuscular Volume 90.6, Mean Corpuscular Hemoglobin 29.8, Mean Corpuscular Hemoglobin Concent 32.9, Red Cell Distribution Width 18.9H, Platelet Count 79L, Neutrophils (%) (Auto) 78.4H, Lymphocytes (%) (Auto) 10.2L, Monocytes (%) (Auto) 5.1H, Eosinophils (%) (Auto) 1.2, Basophils (%) (Auto) 0.8, Neutrophils # (Auto) 2.0, Lymphocytes # (Auto) 0.3L, Monocytes # (Auto) 0.1, Eosinophils # (Auto) 0.0, Basophils # (Auto) 0.0, Nucleated Red Blood Cells % (auto) 0.0, Immature Platelet Fraction 4.2, Anion Gap 10, Glomerular Filtration Rate > 60.0, Calcium Level 8.2L, Magnesium Level 2.0, Aspartate Amino Transf (AST/SGOT) 41H, Alanine Aminotransferase (ALT/SGPT) 28, Alkaline Phosphatase 79, Total Bilirubin 0.9, Direct Bilirubin 0.2, Total Creatine Kinase 343H, Creatine Kinase MB 16.0H, Creatine Kinase MB Relative Index 4.58H, Troponin I 0.02, Total Protein 5.4L, Albumin 2.8L, Albumin/Globulin Ratio 1.08, Thyroid Stimulating Hormone (TSH) 1.840 CBC/BMP Laboratory Tests 11/22/18 16:29 Red Blood Count 3.52 L, Mean Corpuscular Volume 90.6, Mean Corpuscular Hemoglobin 29.8, Mean Corpuscular Hemoglobin Concent 32.9, Red Cell Distribution Width 18.9 H, Neutrophils (%) (Auto) 78.4 H, Lymphocytes (%) (Auto) 10.2 L, Monocytes (%) (Auto) 5.1 H, Eosinophils (%) (Auto) 1.2, Basophils (%) (Auto) 0.8, Neutrophils # (Auto) 2.0, Lymphocytes # (Auto) 0.3 L, Monocytes # (Auto) 0.1, Eosinophils # (Auto) 0.0, Basophils # (Auto) 0.0 Microbiology Microbiology 11/22/18 Blood Culture, Received Pending 11/22/18 Blood Culture, Received Pending RAD Interpretation STUDY: CXR (Basilar chronic interstitial fibrosis. No definite change in size of the ill-defined right lower lobe mass.) Assessment/Plan Dehydration secondary to chemotherapy associated diarrhea and poor oral intake: -The poor oral intake is related to painful swallowing related to chemotherapy -Ordered Magic mouthwash -Dietitian consultation -IV fluids -Full liquid diet as tolerated, although patient reports that at this time, because of the pain, he is unable to take anything by mouth -prn zofran Generalized weakness: -PT/OT evaluation Pancytopenia: -Likely secondary to chemotherapy -Monitor -No heparin/enoxaparin given thrombocytopenia Hypertension: -Continue metoprolol with holding parameters Sinus tachycardia: -Heart rate up to 120s -Likely related to dehydration -Continue aggressive IV fluids Right lower lobe small cell lung cancer: -No inpatient intervention/workup. -May follow-up with hematology oncology per prior appointment on discharge for ongoing chemotherapy DVT prophylaxis: -SCDs. No subcutaneous heparin or enoxaparin CODE STATUS: -DNR per my discussion with the patient Disposition: -Admit to med surg unit as an inpatient. Anticipated length of stay is more than 2 midnights. Anticipate eventual discharge home possibly with home health once medically stable. Plan / VTE VTE Prophylaxis Ordered?: Yes VTE Exclusion Pharmacological: Thrombocytopenia ISAMAR MACDONALD MD Nov 22, 2018 19:38
[2018-11-22] MEDS ORDERED: ACETAMINOPHEN 325 MG/10.15 ML UDC PO PRN (20:45)
[2018-11-22 20:52] VITALS: BP 104/66
[2018-11-22] MEDS ORDERED: METOPROLOL SUCC *XL* 25MG TAB (TopROL *XL*) PO SCH (21:00)
[2018-11-22] MEDS: SUCRALFATE SUSP 1GM/10ML UD PO SCH (22:34)
[2018-11-22] MEDS: KCL 20MEQ in NS 1000ML 1,000 ML IV SCH (22:34)
[2018-11-22] MEDS: FAMOTIDINE IV BAG 20 MG in APPROPRIATE DILUENT 1 EA IV SCH (23:24)
[2018-11-22] MEDS: METOPROLOL TART 12.5 MG PER 1/2 TAB PO SCH (23:29)
[2018-11-23 06:00] VITALS: BP 117/67
[2018-11-23] MEDS: KCL 20MEQ in NS 1000ML 1,000 ML IV SCH (06:18)
[2018-11-23 06:49] LABS: HEMATOCRIT 22.6 % (42.0-52.0); MEAN CORPUSCULAR HEMOGLOBIN 29.6 pg (27.0-33.0); MEAN CORPUSCULAR HGB CONC 32.7 g/dl (32.0-36.5); MEAN CORPUSCULAR VOLUME 90.4 fl (80.0-96.0)
[2018-11-23 07:00] LABS: HEMOGLOBIN 7.4 g/dl (13.5-17.5); WHITE BLOOD COUNT 1.3 10^3/uL (4.0-10.0)
[2018-11-23 07:01] LABS: PLATELET COUNT, AUTOMATED 48 10^3/uL (150-450)
[2018-11-23 07:12] LABS: ALBUMIN 1.9 GM/DL (3.2-5.2); ALT/SGPT 20 U/L (12-78); BILIRUBIN,TOTAL 0.6 MG/DL (0.2-1.0); BLOOD UREA NITROGEN 22 MG/DL (7-18); CALCIUM LEVEL 6.8 MG/DL (8.8-10.2); CARBON DIOXIDE LEVEL 24 MEQ/L (21-32); CHLORIDE LEVEL 110 MEQ/L (98-107); CREATININE FOR GFR 0.73 MG/DL (0.70-1.30); GLOMERULAR FILTRATION RATE > 60.0 (>42); GLUCOSE, FASTING 78 MG/DL (70-100); MAGNESIUM LEVEL 1.7 MG/DL (1.8-2.4); PHOSPHORUS LEVEL 1.7 MG/DL (2.5-4.9); POTASSIUM SERUM 3.5 MEQ/L (3.5-5.1); SODIUM LEVEL 141 MEQ/L (136-145); TOTAL PROTEIN 4.2 GM/DL (6.4-8.2)
[2018-11-23] MEDS ORDERED: FINASTERIDE 5 MG TAB PO SCH (09:00)
[2018-11-23] MEDS ORDERED: POTASSIUM PHOSPHATE INJ 20 MMOL in D5W 250 ML IV ONE (09:00)
[2018-11-23] MEDS: MAG SULF 1GM/100ML (MAG RUN) 1 GM in APPROPRIATE DILUENT 1 EA IV SCH ×2 (09:24→10:50)
[2018-11-23] MEDS: SUCRALFATE SUSP 1GM/10ML UD PO SCH ×5 (09:24→21:00)
[2018-11-23] MEDS: METOPROLOL TART 12.5 MG PER 1/2 TAB PO SCH ×2 (09:26→21:00)
[2018-11-23 09:56] LABS: LYMPHOCYTES 19 % (16-52); MONOCYTES 2 % (0-8); NEUTROPHILS 79 % (35-75); PLATELET ESTIMATE MARKED DECREASE (NORMAL)
[2018-11-23] MEDS: NYSTATIN 500,000 U/5 ML SUSP UDC SS SCH ×4 (11:14→21:00)
[2018-11-23] MEDS ORDERED: LIDOCAINE 1% MDV 20ML VIAL As Ordered ONE (11:18)
[2018-11-23 14:00] VITALS: BP 96/57
[2018-11-23] MEDS: KCL 40MEQ IN D5/NS 1000ML 1,000 ML IV SCH (15:48)
[2018-11-23] MEDS: FAMOTIDINE IV BAG 20 MG in APPROPRIATE DILUENT 1 EA IV SCH ×2 (16:13→22:15)
[2018-11-23] MEDS: FLUCONAZOLE 200 MG in APPROPRIATE DILUENT 1 EA IV SCH (16:14)
--- NOTE | 2018-11-23 16:32 | REP ---
Procedure: Mid line insertion with Site-Rite The procedure was performed under the direct supervision of Dr. Lynn. The risks and benefits of the procedure were explained to the patient and informed consent was obtained. The right basilic vein was localized using ultrasound guidance. The skin was prepped and draped in a sterile fashion. 1% lidocaine was used as a local anesthetic. Using ultrasound guidance the basilic vein was cannulated and a 0.018 guidewire was inserted. The needle was removed and a 5.5 [place] dilator and peel-away sheath was inserted over the guide wire. A 5.5 [place] dual lumen catheter was cut to length of 16 cm. The dilator was removed and the catheter was inserted over the guide wire. The one port was flushed with heparinized saline as per Hospital protocol. However, the other port was not able to be aspirated. The catheter was then removed over a guidewire and a new dilator and sheath was inserted over the guide wire. A new 5-[place] dual lumen catheter was cut to length of 14 cm. The catheter was inserted over the guide wire. When trying to aspirate, there was a defect in the catheter which caused air to be withdrawn into the syringe. The catheter was then removed. The right brachial vein was then localized using ultrasound guidance. The skin was prepped and draped in a sterile fashion. 1% lidocaine was used as a local anesthetic. Using ultrasound guidance the brachial vein was cannulated and a 0.018 guide wire was inserted. The needle was removed and a 5.5 [place] dilator and peel-away sheath was inserted over the guide wire. A 5.5 [place] dual lumen catheter was cut to length of 14 cm. The dilator was removed and the catheter was inserted over the guide wire. The peel-away sheath was removed and the catheter was flushed with heparinized saline as per Hospital protocol. The catheter was affixed to the skin and a sterile dressing was applied. The patient tolerated the procedure well and there were no immediate complications. Reviewed by JAH aCal 11/23/2018 03:54 P Electronically Signed by Jonathan Lynn MD 11/23/2018 04:23 P
[2018-11-23 16:52] VITALS: BP 130/69
[2018-11-23 17:43] LABS: HEMATOCRIT 26.3 % (42.0-52.0); HEMOGLOBIN 8.4 g/dl (13.5-17.5); MEAN CORPUSCULAR HEMOGLOBIN 29.3 pg (27.0-33.0); MEAN CORPUSCULAR HGB CONC 31.9 g/dl (32.0-36.5); MEAN CORPUSCULAR VOLUME 91.6 fl (80.0-96.0); RED BLOOD COUNT 2.87 10^6/uL (4.30-6.10)
[2018-11-23] MEDS: SODIUM CHLORIDE 0.9% INJ 10 ML SYR IV SCH (17:59)
[2018-11-23 18:07] LABS: PLATELET COUNT, AUTOMATED 57 10^3/uL (150-450); WHITE BLOOD COUNT 1.5 10^3/uL (4.0-10.0)
--- NOTE | 2018-11-23 20:34 | IPNPDOC ---
Subjective Date Seen The patient was seen on 11/23/18. Subjective Chief Complaint/HPI Admitted for generalized weakness as well as diarrhea Events since last encounter The patient reports her diarrhea seems to have slowed down. Still quite weak. Hasn't had anything by mouth except a few sips. He is willing to try some shakes. Denies any chest pain or shortness of breath. No nausea or vomiting. Denies abdominal pain. Has been urinating okay. Objective Physical Examination General Exam: Positive: Cooperative, Other (sleeping, easily arousable.) Eye Exam: Positive: [facility] ENT Exam: Positive: Mucous membr. moist/pink (patient seems to have small spots of oral thrush on exam today or the tongue), Other ENT (superficial mucosal ulceration on the anterior aspect of the tongue) Chest Exam: Positive: Clear to auscultation, Normal air movement; Negative: Rales, Rhonchi, Wheezing Heart Exam: Positive: Rate Normal, Normal S1, Normal S2 Abdomen Exam: Positive: Normal bowel sounds, Soft; Negative: Tenderness Skin Exam: Positive: Nl turgor and temperature Neuro Exam: Positive: Other (sleeping but easily arousable. Oriented 3. Moving all 4 extremities.) Psych Exam: Positive: Mental status NL Assessment /Plan Assessment Dehydration secondary to chemotherapy associated diarrhea and poor oral intake: -The poor oral intake is likely related to painful swallowing related to chemotherapy -Also, as noted, seems to have oral thrush on exam todaycannot rule out oropharyngeal/esophageal candidiasis. Discussed with patient regarding whether he would wish to pursue EGD. He will much rather wide and proceed with treatment with Diflucan rather than undergo any procedure. Accordingly, he will be treated with IV Diflucan in addition to the oral and stent insertion swallow. -Continue Magic mouthwash -Dietitian consultation. I have ordered oral Ensure shakes TID -Continue IV fluids -Full liquid diet -prn zofran Worsening pancytopenia: -Some of this is likely dilutional. 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 -May follow-up with hematology oncology per prior appointment on discharge for ongoing chemotherapy DVT prophylaxis: -SCDs. No subcutaneous heparin or enoxaparin in view of thrombocytopenia Disposition: Continue to monitor on medical floor. Plan/VTE VTE Prophylaxis Ordered?: Yes VTE Exclusion Pharmacological: Thrombocytopenia VS, I&O, 24H, Fishbone Vital Signs/I&O Vital Signs Date Time Temp Pulse Resp B/P (MAP) Pulse Ox O2 Delivery O2 Flow Rate FiO2 11/23/18 16:52 86 130/69 (89) 11/23/18 14:00 97.3 17 92 11/22/18 20:00 Room Air I&O- Last 24 Hours up to 6 AM 11/23/18 06:00 Intake Total 0 ml Output Total 250 ml Balance -250 ml Laboratory Data 24H LABS Laboratory Tests 2 11/23/18 06:16: Immature Granulocyte % (Auto) , White Blood Count 1.3L, Red Blood Count 2.50L, Hemoglobin 7.4#L, Hematocrit 22.6L, Mean Corpuscular Volume 90.4, Mean Corpuscular Hemoglobin 29.6, Mean Corpuscular Hemoglobin Concent 32.7, Red Cell Distribution Width 18.5H, Platelet Count 48#L, Lymphocytes # (Auto) , Nucleated Red Blood Cells % (auto) 1.6H, Neutrophils 79H, Lymphocytes (Manual) 19, Monocytes (Manual) 2, Platelet Estimate MARKED DECREASE, Red Blood Cell Morpholo gy NORMAL, Anion Gap 7L, Glomerular Filtration Rate > 60.0, Blood Urea Nitrogen 22H, Creatinine 0.73, Sodium Level 141, Potassium Level 3.5, Chloride Level 110H, Carbon Dioxide Level 24, Calcium Level 6.8#L, Phosphorus Level 1.7L, Aspartate Amino Transf (AST/SGOT) 30, Alanine Aminotransferase (ALT/SGPT) 20, Alkaline Phosphatase 55, Total Bilirubin 0.6, Total Protein 4.2#L, Albumin 1.9#L, Magnesium Level 1.7L, Albumin/Globulin Ratio 0.83L 11/23/18 16:13: White Blood Count 1.5L, Red Blood Count 2.87L, Hemoglobin 8.4L, Hematocrit 26.3L, Mean Corpuscular Volume 91.6, Mean Corpuscular Hemoglobin 29.3, Mean Corpuscular Hemoglobin Concent 31.9L, Red Cell Distribution Width 18.6H, Platelet Count 57L, Lymphocytes # (Auto) , Nucleated Red Blood Cells % (auto) 0.0 CBC/BMP Laboratory Tests 11/23/18 06:16 Red Blood Count 2.50 L, Mean Corpuscular Volume 90.4, Mean Corpuscular Hemoglobin 29.6, Mean Corpuscular Hemoglobin Concent 32.7, Red Cell Distribution Width 18.5 H, Lymphocytes # (Auto) , Calcium Level 6.8 #L, Phosphorus Level 1.7 L, Aspartate Amino Transf (AST/SGOT) 30, Alanine Aminotransferase (ALT/SGPT) 20, Alkaline Phosphatase 55, Total Bilirubin 0.6, Total Protein 4.2 #L, Albumin 1.9 #L 11/23/18 16:13 Red Blood Count 2.87 L, Mean Corpuscular Volume 91.6, Mean Corpuscular Hemoglobin 29.3, Mean Corpuscular Hemoglobin Concent 31.9 L, Red Cell Distribution Width 18.6 H, Lymphocytes # (Auto) Microbiology Microbiology 11/22/18 Blood Culture - Preliminary, Resulted No growth after 24 hours . All specim... 11/22/18 Blood Culture - Preliminary, Resulted No growth after 24 hours . All specim... ISAMAR MACDONALD MD Nov 23, 2018 20:34
[2018-11-23 20:46] LABS: METAMYELOCYTES 1 % (0-0)
[2018-11-23 20:48] LABS: DOHLE BODIES 1+; TEAR DROP CELLS 1+
[2018-11-23 20:50] LABS: PLATELET ESTIMATE MARKED DECREASE (NORMAL)
[2018-11-23 22:00] VITALS: BP 97/59
[2018-11-23] MEDS: SODIUM CHLORIDE 0.9% INJ 10 ML SYR IV PRN (23:13)
[2018-11-24] MEDS: SODIUM CHLORIDE 0.9% INJ 10 ML SYR IV SCH ×2 (05:30→17:27)
[2018-11-24] MEDS: KCL 40MEQ IN D5/NS 1000ML 1,000 ML IV SCH ×3 (05:31→19:36)
[2018-11-24 05:44] LABS: EOS % 0.9 % (0.0-3.0); HEMATOCRIT 21.5 % (42.0-52.0); HEMOGLOBIN 7.2 g/dl (13.5-17.5); LYMPH % 9.9 % (24.0-44.0); MEAN CORPUSCULAR HEMOGLOBIN 30.1 pg (27.0-33.0); MEAN CORPUSCULAR HGB CONC 33.5 g/dl (32.0-36.5); MONO # 0.1 10^3/uL (0.0-0.8); MONO % 8.1 % (0.0-5.0); NEUTROPHILS % 76.6 % (36.0-66.0); RED BLOOD COUNT 2.39 10^6/uL (4.30-6.10)
[2018-11-24 06:00] VITALS: BP 102/61
[2018-11-24 06:18] LABS: ALBUMIN 1.9 GM/DL (3.2-5.2); ALT/SGPT 18 U/L (12-78); BILIRUBIN,TOTAL 0.6 MG/DL (0.2-1.0); BLOOD UREA NITROGEN 10 MG/DL (7-18); CALCIUM LEVEL 6.6 MG/DL (8.8-10.2); CARBON DIOXIDE LEVEL 24 MEQ/L (21-32); CHLORIDE LEVEL 108 MEQ/L (98-107); CREATININE FOR GFR 0.77 MG/DL (0.70-1.30); GLOMERULAR FILTRATION RATE > 60.0 (>42); GLUCOSE, FASTING 115 MG/DL (70-100); MAGNESIUM LEVEL 1.9 MG/DL (1.8-2.4); PHOSPHORUS LEVEL 1.2 MG/DL (2.5-4.9); POTASSIUM SERUM 3.7 MEQ/L (3.5-5.1); SODIUM LEVEL 139 MEQ/L (136-145); TOTAL PROTEIN 3.8 GM/DL (6.4-8.2)
[2018-11-24 07:01] LABS: LYMPH # 0.1 10^3/uL (1.5-4.5); NEUTROPHILS # 0.9 10^3/uL (1.8-7.7); PLATELET COUNT, AUTOMATED 50 10^3/uL (150-450); WHITE BLOOD COUNT 1.1 10^3/uL (4.0-10.0)
[2018-11-24] MEDS: SUCRALFATE SUSP 1GM/10ML UD PO SCH ×4 (07:30→20:46)
[2018-11-24] MEDS: METOPROLOL TART 12.5 MG PER 1/2 TAB PO SCH ×2 (08:24→20:46)
[2018-11-24] MEDS: FAMOTIDINE IV BAG 20 MG in APPROPRIATE DILUENT 1 EA IV SCH ×2 (09:32→20:46)
[2018-11-24] MEDS: NYSTATIN 500,000 U/5 ML SUSP UDC SS SCH ×4 (09:32→20:46)
[2018-11-24] MEDS ORDERED: POTASSIUM PHOSPHATE INJ 30 MMOL in D5W 500 ML IV ONE (10:00)
[2018-11-24] MEDS: MAGIC MOUTHWASH SUSPENSION BTL SS PRN (10:31)
[2018-11-24] MEDS: FLUCONAZOLE 200 MG in APPROPRIATE DILUENT 1 EA IV SCH (12:28)
[2018-11-24 14:00] VITALS: BP 126/57
--- NOTE | 2018-11-24 17:54 | IPNPDOC ---
Subjective Date Seen The patient was seen on 11/24/18. Subjective Chief Complaint/HPI Admitted for generalized weakness as well as diarrhea Events since last encounter The patient reports he is still having pain in his mouth as well as esophagus. Reports difficulty swallowing liquids. Has not been taking much oral intake. Reports he will try the Ensure after I came to improve oral intake. Denies any abdominal pain itself. No nausea or vomiting. No diarrhea. No overnight fevers. Feels quite weak. Does not feel like he will be able to participate with physical therapy. Objective Physical Examination General Exam: Positive: Other (lying in bed, weak appearing ) Eye Exam: Positive: [facility] ENT Exam: Positive: Other ENT (superficial ulceration over the tongue unchanged from yesterday as well as some slight whitish patches concerning for oral thrush) Chest Exam: Positive: Clear to auscultation, Normal air movement; Negative: Rales, Rhonchi, Wheezing Heart Exam: Positive: Rate Normal, Normal S1, Normal S2 Abdomen Exam: Positive: Soft; Negative: Tenderness Skin Exam: Positive: Nl turgor and temperature Neuro Exam: Positive: Other (Oriented 3. Moving all 4 extremities.) Assessment /Plan Assessment Dehydration secondary to chemotherapy associated diarrhea and poor oral intake: -The poor oral intake is likely related to painful swallowing related to chemoth erapy -Has oral thrush on examcannot rule out oropharyngeal/esophageal candidiasis. Patient did not wish to pursue EGD wanted to proceed with treatment with Diflucan instead. -Continue Magic mouthwash - patient apparently had been refusing the samediscussed with patient regarding taking the oral statin as well as Magic mouthwash to see if the pain would improve. -Encouraged Ensure shakes TID - discussed with patient regarding perhaps trying ensure clear shakes if he does not want to try the left liverhe reports he will try given a left liver. -Continue IV fluids -Full liquid diet -prn zofran -Also discussed with patient regarding my concern that he has not taken much by mouth or the last few days. Discussed with him regarding the possibility of TPN although, in view of his neutropenia and ongoing chemotherapy, he would be at higher risk for bacteremia/sepsis with the TPN. Nonetheless, also expressed my concern that if he does not take adequate oral intake, he would continue to get weaker. For now, the patient wishes to try oral intake did monitor his oral intake over the next 24-48 hours and we will readdress TPN if needed at that time. Worsening pancytopenia secondary to chemotherapy with some dilutional effect: -Patient has been type and screened -Hemoglobin remains above 7no indication for transfusion at this time -No indication for platelet transfusion -Case was discussed with from hematology oncology to see if patient would require any Neupogen/Neulasta Oral thrush: -Cannot rule out underlying esophageal candidiasis given patient's reported significant pain in esophagus with swallowing -Ct IV Diflucan Hypomagnesemia -Resolved Hypophosphatemia -Replete and recheck Hypocalcemia: -Corrected calcium 7.6 -Ordered 2 g calcium gluconate -Recheck in a.m. - ionized calcium in a.m. 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 -May follow-up with hematology oncology per prior appointment on discharge for ongoing chemotherapy DVT prophylaxis: -SCDs. No subcutaneous heparin or enoxaparin in view of thrombocytopenia Disposition: Continue IV fluids, IV titrated patient, IV Diflucan. Patient's oral intake remains poor as of this time. May require TPN if oral intake does not improve. Plan/VTE VTE Prophylaxis Ordered?: Yes VTE Exclusion Pharmacological: Thrombocytopenia VS, I&O, 24H, Fishbone Vital Signs/I&O Vital Signs Date Time Temp Pulse Resp B/P (MAP) Pulse Ox O2 Delivery O2 Flow Rate FiO2 11/24/18 14:00 99.6 83 16 126/57 (80) 97 11/22/18 20:00 Room Air I&O- Last 24 Hours up to 6 AM 11/24/18 06:00 Intake Total 975 ml Output Total 1350 ml Balance -375 ml Laboratory Data 24H LABS Laboratory Tests 2 11/24/18 05:30: Immature Granulocyte % (Auto) 4.5H, White Blood Count 1.1L, Red Blood Count 2.39L, Hemoglobin 7.2L, Hematocrit 21.5L, Mean Corpuscular Volume 90.0, Mean Corpuscular Hemoglobin 30.1, Mean Corpuscular Hemoglobin Concent 33.5, Red Cell Distribution Width 18.4H, Platelet Count 50L, Neutrophils (%) (Auto) 76.6H, Lymp hocytes (%) (Auto) 9.9L, Monocytes (%) (Auto) 8.1H, Eosinophils (%) (Auto) 0.9, Basophils (%) (Auto) 0.0, Neutrophils # (Auto) 0.9L, Lymphocytes # (Auto) 0.1L, Monocytes # (Auto) 0.1, Eosinophils # (Auto) 0.0, Basophils # (Auto) 0.0, Nucleated Red Blood Cells % (auto) 0.0, Immature Platelet Fraction 2.6, Anion Gap 7L, Glomerular Filtration Rate > 60.0, Blood Urea Nitrogen 10#, Creatinine 0.77, Sodium Level 139, Potassium Level 3.7, Chloride Level 108H, Carbon Dioxide Level 24, Calcium Level 6.6L, Phosphorus Level 1.2#L, Aspartate Amino Transf (AST/SGOT) 25, Alanine Aminotransferase (ALT/SGPT) 18, Alkaline Phosphatase 56, Total Bilirubin 0.6, Total Protein 3.8L, Albumin 1.9L, Magnesium Level 1.9, Albumin/Globulin Ratio 1.00 CBC/BMP Laboratory Tests 11/24/18 05:30 Red Blood Count 2.39 L, Mean Corpuscular Volume 90.0, Mean Corpuscular Hemoglobin 30.1, Mean Corpuscular Hemoglobin Concent 33.5, Red Cell Distribution Width 18.4 H, Neutrophils (%) (Auto) 76.6 H, Lymphocytes (%) (Auto) 9.9 L, Monocytes (%) (Auto) 8.1 H, Eosinophils (%) (Auto) 0.9, Basophils (%) (Auto) 0 .0, Neutrophils # (Auto) 0.9 L, Lymphocytes # (Auto) 0.1 L, Monocytes # (Auto) 0.1, Eosinophils # (Auto) 0.0, Basophils # (Auto) 0.0, Calcium Level 6.6 L, Phosphorus Level 1.2 #L, Aspartate Amino Transf (AST/SGOT) 25, Alanine Aminotransferase (ALT/SGPT) 18, Alkaline Phosphatase 56, Total Bilirubin 0.6, Total Protein 3.8 L, Albumin 1.9 L Microbiology Microbiology 11/22/18 Blood Culture - Preliminary, Resulted No Growth after 48 hours. All Specime... 11/22/18 Blood Culture - Preliminary, Resulted No Growth after 48 hours. All Specime... MACDONALD,ISAMAR S. MD Nov 24, 2018 17:54
[2018-11-24] MEDS: CALCIUM GLUCONATE 1,000 MG in D5W MINI-BAG PLUS 100 ML IV SCH ×2 (18:03→19:36)
[2018-11-24] MEDS: SODIUM CHLORIDE 0.9% INJ 10 ML SYR IV PRN (21:39)
[2018-11-24 22:00] VITALS: BP 123/58
[2018-11-25] MEDS: SODIUM CHLORIDE 0.9% INJ 10 ML SYR IV SCH ×2 (05:58→17:36)
[2018-11-25 06:00] VITALS: BP 80/46
[2018-11-25 06:18] LABS: HEMATOCRIT 22.3 % (42.0-52.0); HEMOGLOBIN 7.4 g/dl (13.5-17.5); MEAN CORPUSCULAR HEMOGLOBIN 29.8 pg (27.0-33.0); MEAN CORPUSCULAR HGB CONC 33.2 g/dl (32.0-36.5); MEAN CORPUSCULAR VOLUME 89.9 fl (80.0-96.0); RED BLOOD COUNT 2.48 10^6/uL (4.30-6.10)
[2018-11-25 06:20] LABS: PLATELET COUNT, AUTOMATED 48 10^3/uL (150-450); WHITE BLOOD COUNT 1.6 10^3/uL (4.0-10.0)
[2018-11-25] MEDS ORDERED: NS 500 ML IV ONE (06:30)
[2018-11-25 06:40] LABS: BLOOD UREA NITROGEN 8 MG/DL (7-18); CARBON DIOXIDE LEVEL 24 MEQ/L (21-32); CHLORIDE LEVEL 105 MEQ/L (98-107); CREATININE FOR GFR 0.88 MG/DL (0.70-1.30); GLOMERULAR FILTRATION RATE > 60.0 (>42); GLUCOSE, FASTING 137 MG/DL (70-100); POTASSIUM SERUM 4.1 MEQ/L (3.5-5.1); SODIUM LEVEL 135 MEQ/L (136-145)
[2018-11-25 06:41] LABS: ALBUMIN 1.8 GM/DL (3.2-5.2); ALT/SGPT 20 U/L (12-78); BILIRUBIN,TOTAL 0.7 MG/DL (0.2-1.0); MAGNESIUM LEVEL 1.5 MG/DL (1.8-2.4); PHOSPHORUS LEVEL 1.8 MG/DL (2.5-4.9); TOTAL PROTEIN 3.9 GM/DL (6.4-8.2)
[2018-11-25] MEDS: SODIUM CHLORIDE 0.9% INJ 10 ML SYR IV PRN ×2 (07:15→23:31)
[2018-11-25 07:17] VITALS: BP 98/62
[2018-11-25 07:27] LABS: ATYPICAL LYMPH 1 % (0-5); BASOPHILS 1 % (0-4); BLAST CELLS 1 % (0-0); LYMPHOCYTES 14 % (16-52); METAMYELOCYTES 3 % (0-0); MONOCYTES 1 % (0-8); MYELOCYTES 2 % (0-0); NEUTROPHILS 74 % (35-75)
[2018-11-25 07:28] LABS: ANISOCYTOSIS 1+; DOHLE BODIES 1+; HYPOCHROMASIA 1+; MICROCYTOSIS 1+; PLATELET ESTIMATE MARKED DECREASE (NORMAL)
[2018-11-25] MEDS: SUCRALFATE SUSP 1GM/10ML UD PO SCH ×4 (07:30→21:00)
[2018-11-25] MEDS: METOPROLOL TART 12.5 MG PER 1/2 TAB PO SCH ×2 (08:14→21:00)
[2018-11-25] MEDS: FAMOTIDINE IV BAG 20 MG in APPROPRIATE DILUENT 1 EA IV SCH ×2 (08:15→21:10)
[2018-11-25] MEDS: NYSTATIN 500,000 U/5 ML SUSP UDC SS SCH ×4 (08:15→21:00)
[2018-11-25] MEDS ORDERED: PILL CRUSHER/CUTTER 1 EACH XX PRN (08:15)
[2018-11-25] MEDS: CALCIUM GLUCONATE 1,000 MG in D5W MINI-BAG PLUS 100 ML IV SCH ×2 (09:00→10:20)
[2018-11-25] MEDS: KCL 40MEQ IN D5/NS 1000ML 1,000 ML IV SCH ×2 (09:21→23:30)
[2018-11-25] MEDS: MAG SULF 1GM/100ML (MAG RUN) 1 GM in APPROPRIATE DILUENT 1 EA IV SCH ×3 (11:38→13:56)
[2018-11-25] MEDS: GI COCKTAIL 50ML BTL(HYOSCYAMINE/MAALOX/LIDOCAINE VISCOUS)(1:3:1) PO SCH ×3 (12:25→21:00)
[2018-11-25] MEDS: FLUCONAZOLE 200 MG in APPROPRIATE DILUENT 1 EA IV SCH (13:56)
[2018-11-25 14:00] VITALS: BP 113/58
[2018-11-25] MEDS ORDERED: SODIUM PHOSPHATE INJ 30 MMOL in D5W 500 ML IV ONE (14:00)
--- NOTE | 2018-11-25 16:31 | IPNPDOC ---
Subjective Date Seen The patient was seen on 11/25/18. Subjective Chief Complaint/HPI Admitted for generalized weakness as well as diarrhea Events since last encounter Patient reports he still had problem with painful swallowing. Reports he has been using the Magic mouthwash/nystatin at times. Reports he is not taking much by mouth. Son reports that the patient had a couple of sips of soup yesterday. Denies any chest pain or shortness of breath. No abdominal pain. Urinating okay. Denies constipation. Objective Physical Examination General Exam: Positive: Other (Lying in bed, weak appearing. Sleeping, easily arousable. ) Eye Exam: Positive: [facility] ENT Exam: Positive: Other ENT (Superficial ulceration over the tongue unchanged from yesterday. Whitish patches concerning for oral thrush) Chest Exam: Positive: Clear to auscultation, Normal air movement; Negative: Rales, Rhonchi, Wheezing Heart Exam: Positive: Rate Normal, Normal S1, Normal S2 Abdomen Exam: Positive: Soft; Negative: Tenderness Skin Exam: Positive: Nl turgor and temperature Neuro Exam: Positive: Other (sleeping, easily arousable, answered questions appropriately.) Assessment /Plan Assessment Dehydration secondary to chemotherapy associated diarrhea and poor oral intake: -The poor oral intake is likely related to painful swallowing related to chemotherapy -Oral thrush on examcannot rule out oropharyngeal/esophageal candidiasis. Patient did not wish to pursue EGD wanted to proceed with treatment with Diflucan instead - I have ordered 7 day treatment -Continue Magic mouthwash - discussed with patient again today regarding taking the oral nysstatin as well as Magic mouthwash to see if the pain would improve. -I have also added a GI cocktail to see if this would help. -Encouraged Ensure shakes TID - ordered Ensure Clear as patient has not been drinking the vanilla shakes -Continue IV fluids -Full liquid diet -prn zofran -Discussed again today with patient as well as his son at bedsideI'm concerned about patient's poor oral intake. Discussed regarding the option of TPN and the risks with the same. Both patient and son would want to hold off on the same for now. As noted above, we will try GI cocktail to see if this helps with patient's pain and I am also going to try clear Ensure shakes. Son also expresses concern that patient is tolerating chemotherapy poorly and that he has had recurrent problems with oral intake requiring hospitalization after chemotherapy sessions. Advised him to discuss with Dr. Wray on follow-up regarding same - I will d/w her regarding same tomorrow as well. Worsening pancytopenia secondary to chemotherapy with some dilutional effect: -Patient has been type and screened -Hemoglobin remains above 7no indication for transfusion at this time -No indication for platelet transfusion -Case was discussed with from hematology oncology to see if patient would require any Neupogen/Neulasta Oral thrush: -Cannot rule out underlying esophageal candidiasis given patient's reported significant pain in esophagus with swallowing -Ct IV Diflucan Hypomagnesemia -Replete and recheck Hypophosphatemia -Replete and recheck Hypocalcemia: -Little better -Replete and recheck Generalized weakness: -PT/OT Hypertension: -Continue metoprolol with holding parameters Sinus tachycardia: -Resolved -Was likely related to dehydration Right lower lobe small cell lung cancer: -No inpatient intervention/workup. -May follow-up with hematology oncology per prior appointment on discharge for ongoing chemotherapy -Discussed with patient and son today to discuss with Dr. Wray at follow-up regarding whether they would wish to continue with chemotherapy given that patient has been having problems with oral intake following chemotherapy requ iring hospitalization and since it has been particularly worse this time. DVT prophylaxis: -SCDs. No subcutaneous heparin or enoxaparin in view of thrombocytopenia Plan/VTE VTE Prophylaxis Ordered?: Yes VTE Exclusion Pharmacological: Thrombocytopenia VS, I&O, 24H, Fishbone Vital Signs/I&O Vital Signs Date Time Temp Pulse Resp B/P (MAP) Pulse Ox O2 Delivery O2 Flow Rate FiO2 11/25/18 14:00 98.8 86 16 113/58 (76) 95 11/22/18 20:00 Room Air I&O- Last 24 Hours up to 6 AM 11/25/18 06:00 Intake Total 1895 ml Output Total 1175 ml Balance 720 ml Laboratory Data 24H LABS Laboratory Tests 2 11/25/18 05:55: Immature Granulocyte % (Auto) , White Blood Count 1.6L, Red Blood Count 2.48L, Hemoglobin 7.4L, Hematocrit 22.3L, Mean Corpuscular Volume 89.9, Mean Corpuscular Hemoglobin 29.8, Mean Corpuscular Hemoglobin Concent 33.2, Red Cell Distribution Width 18.4H, Platelet Count 48L, Lymphocytes # (Auto) , Nucleated Red Blood Cells % (auto) 0.0, Neutrophils 74, Band Neutrophils 3, Lymphocytes (Manual) 14L, Monocytes (Manual) 1, Basophils (Manual) 1, Metamyelocytes 3H, Myelocytes 2H, Atypical Lymphocytes 1, Blastocytes 1H, Dohle Bodies 1+, Platelet Estimate MARKED DECREASE, Immature Platelet Fraction 3.5, Hypochromasia 1+, Anisocytosis 1+, Microcytosis 1+, Anion Gap 6L, Glomerular Filtration Rate > 60.0, Blood Urea Nitrogen 8, Creatinine 0.88, Sodium Level 135L, Potassium Level 4.1, Chloride Level 105, Carbon Dioxide Level 24, Calcium Level 7.0L, Phosphorus Level 1.8#L, Aspartate Amino Transf (AST/SGOT) 23, Alanine Aminotransferase (ALT/SGPT) 20, Alkaline Phosphatase 63, Total Bilirubin 0.7, Total Protein 3.9L, Albumin 1.8L, Magnesium Level 1.5L, Albumin/Globulin Ratio 0.86L 11/25/18 06:11: Whole Blood Ionized Calcium 4.4L CBC/BMP Laboratory Tests 11/25/18 05:55 Red Blood Count 2.48 L, Mean Corpuscular Volume 89.9, Mean Corpuscular Hemoglobin 29.8, Mean Corpuscular Hemoglobin Concent 33.2, Red Cell Distribution Width 18.4 H, Lymphocytes # (Auto) , Calcium Level 7.0 L, Phosphorus Level 1.8 #L, Aspartate Amino Transf (AST/SGOT) 23, Alanine Aminotransferase (ALT/SGPT) 20, Alkaline Phosphatase 63, Total Bilirubin 0.7, Total Protein 3.9 L, Albumin 1.8 L Microbiology Microbiology 11/22/18 Blood Culture - Preliminary, Resulted No Growth after 48 hours. All Specime... 11/22/18 Blood Culture - Preliminary, Resulted No Growth after 48 hours. All Specime... ISAMAR MACDONALD MD Nov 25, 2018 16:31
[2018-11-25 22:00] VITALS: BP 96/69
[2018-11-26] MEDS: SODIUM CHLORIDE 0.9% INJ 10 ML SYR IV SCH ×2 (05:40→18:50)
[2018-11-26 05:50] LABS: MEAN CORPUSCULAR HEMOGLOBIN 29.9 pg (27.0-33.0); MEAN CORPUSCULAR HGB CONC 33.3 g/dl (32.0-36.5); MEAN CORPUSCULAR VOLUME 89.7 fl (80.0-96.0); RED BLOOD COUNT 2.34 10^6/uL (4.30-6.10)
[2018-11-26 06:00] VITALS: BP 93/57
[2018-11-26 06:01] LABS: PLATELET COUNT, AUTOMATED 47 10^3/uL (150-450); WHITE BLOOD COUNT 1.7 10^3/uL (4.0-10.0)
[2018-11-26 06:26] LABS: BLOOD UREA NITROGEN 6 MG/DL (7-18); CALCIUM LEVEL 6.9 MG/DL (8.8-10.2); CARBON DIOXIDE LEVEL 24 MEQ/L (21-32); CHLORIDE LEVEL 101 MEQ/L (98-107); CREATININE FOR GFR 0.84 MG/DL (0.70-1.30); GLOMERULAR FILTRATION RATE > 60.0 (>42); GLUCOSE, FASTING 112 MG/DL (70-100); MAGNESIUM LEVEL 1.6 MG/DL (1.8-2.4); POTASSIUM SERUM 3.5 MEQ/L (3.5-5.1); SODIUM LEVEL 132 MEQ/L (136-145)
[2018-11-26 06:53] LABS: ATYPICAL LYMPH 3 % (0-5); BASOPHILS 1 % (0-4); EOSINOPHILS 1 % (0-5); LYMPHOCYTES 15 % (16-52); MONOCYTES 2 % (0-8); MYELOCYTES 1 % (0-0); NEUTROPHILS 72 % (35-75)
[2018-11-26 06:54] LABS: ANISOCYTOSIS 2+; DOHLE BODIES 1+; MICROCYTOSIS 1+; PLATELET ESTIMATE DECREASED (NORMAL); POIKILOCYTOSIS 1+; TOXIC GRANULATION 1+
[2018-11-26] MEDS: SUCRALFATE SUSP 1GM/10ML UD PO SCH ×5 (07:30→20:45)
[2018-11-26 08:48] LABS: HEMATOCRIT 20.5 % (42.0-52.0); MEAN CORPUSCULAR HEMOGLOBIN 29.8 pg (27.0-33.0); MEAN CORPUSCULAR HGB CONC 33.2 g/dl (32.0-36.5); MEAN CORPUSCULAR VOLUME 89.9 fl (80.0-96.0); RED BLOOD COUNT 2.28 10^6/uL (4.30-6.10)
[2018-11-26 09:00] LABS: WHITE BLOOD COUNT 1.6 10^3/uL (4.0-10.0)
[2018-11-26] MEDS: MAG SULF 1GM/100ML (MAG RUN) 1 GM in APPROPRIATE DILUENT 1 EA IV SCH ×4 (09:00→13:27)
[2018-11-26 09:05] LABS: PLATELET COUNT, AUTOMATED 41 10^3/uL (150-450)
[2018-11-26 09:06] LABS: HEMOGLOBIN 6.8 g/dl (13.5-17.5)
[2018-11-26] MEDS: GI COCKTAIL 50ML BTL(HYOSCYAMINE/MAALOX/LIDOCAINE VISCOUS)(1:3:1) PO SCH ×4 (10:07→20:45)
[2018-11-26] MEDS: FAMOTIDINE IV BAG 20 MG in APPROPRIATE DILUENT 1 EA IV SCH ×2 (10:07→18:47)
[2018-11-26] MEDS: NYSTATIN 500,000 U/5 ML SUSP UDC SS SCH ×4 (10:08→20:45)
[2018-11-26] MEDS: METOPROLOL TART 12.5 MG PER 1/2 TAB PO SCH ×2 (10:12→20:45)
[2018-11-26] MEDS: CALCIUM GLUCONATE 1,000 MG in D5W MINI-BAG PLUS 100 ML IV SCH ×2 (11:00→13:27)
[2018-11-26 11:13] LABS: ATYPICAL LYMPH 2 % (0-5); BASOPHILS 1 % (0-4); LYMPHOCYTES 8 % (16-52); MONOCYTES 4 % (0-8); MYELOCYTES 4 % (0-0); NEUTROPHILS 74 % (35-75)
[2018-11-26 11:15] LABS: ANISOCYTOSIS 1+; MICROCYTOSIS 1+; OVALOCYTES 1+; PLATELET ESTIMATE MARKED DECREASE (NORMAL); POIKILOCYTOSIS 1+
--- NOTE | 2018-11-26 11:57 | ECGEPIP ---
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
[2018-11-26] MEDS ORDERED: NS 1,000 ML IV SCH (12:00)
[2018-11-26] MEDS ORDERED: SODIUM PHOSPHATE INJ 30 MMOL in D5W 500 ML IV ONE (13:00)
[2018-11-26 14:00] VITALS: BP 131/62
[2018-11-26] MEDS: FLUCONAZOLE 200 MG in APPROPRIATE DILUENT 1 EA IV SCH (14:52)
[2018-11-26] MEDS: KCL 40MEQ IN D5/NS 1000ML 1,000 ML IV SCH (15:06)
--- NOTE | 2018-11-26 19:54 | IPNPDOC ---
Subjective Date Seen The patient was seen on 11/26/18. Subjective Chief Complaint/HPI Admitted for generalized weakness as well as diarrhea Events since last encounter The patient reports he had a few sips of liquids. Still has persistent pain with swallowing. Denies any chest pain. No nausea or vomiting. Denies any abdominal pain. No shortness of breath. Has not been out of the bed yet. Objective Physical Examination General Exam: Positive: Other (Lying in bed, weak appearing. Son present at bedside.) Eye Exam: Positive: [facility] ENT Exam: Positive: Other ENT (Superficial ulceration over the tongue. Whitish patches concerning for oral thrush) Chest Exam: Positive: Clear to auscultation, Normal air movement; Negative: Rales, Rhonchi, Wheezing Heart Exam: Positive: Rate Normal, Normal S1, Normal S2 Abdomen Exam: Positive: Soft; Negative: Tenderness Neuro Exam: Positive: Other (awake, alert, answered questions appropriately.) Assessment /Plan Assessment Dehydration secondary to chemotherapy associated diarrhea and poor oral intake: -The poor oral intake is likely related to painful swallowing related to chemotherapy -Oral thrush on examcannot rule out oropharyngeal/esophageal candidiasis. Patient did not wish to pursue EGD wanted to proceed with empiric treatment with Diflucan - on same - plan 7 days Rx -Continue Magic mouthwash, GI cocktail -Encouraged Ensure Clear -Continue IV fluids -Full liquid diet -prn zofran Worsening pancytopenia secondary to chemotherapy with some dilutional effect: -Hemoglobin 6.8 today -Transfuse 1 unit packed RBC -No indication for platelet transfusion Oral thrush: -Cannot rule out underlying esophageal candidiasis given patient's reported significant pain in esophagus with swallowing -Ct IV Diflucan Hypomagnesemia -Replete and recheck Hypophosphatemia -Replete and recheck Hypocalcemia: -Replete and recheck Generalized weakness: -PT/OT Hypertension: -Continue metoprolol with holding parameters Sinus tachycardia: -Resolved -Was likely related to dehydration Right lower lobe small cell lung cancer: -No inpatient intervention/workup. -Discussed with patient and son today regarding chemotherapy. Patient has had severe weakness as well as difficult swallowing as well as substantial decrease in his quality of life with chemotherapy and radiation treatments. Son expressed concern about the same. Reports his dad was more ambulatory, more independent and able to do more activities prior to any cessation of radiation and chemotherapy, but now is unable to do any of these activities. Discussed with patient and son regarding consideration for hospice to focus on quality of lifepatient reports he will think about the same. DVT prophylaxis: -SCDs. No subcutaneous heparin or enoxaparin in view of thrombocytopenia Plan/VTE VTE Prophylaxis Ordered?: Yes VTE Exclusion Pharmacological: Thrombocytopenia VS, I&O, 24H, Fishbone Vital Signs/I&O Vital Signs Date Time Temp Pulse Resp B/P (MAP) Pulse Ox O2 Delivery O2 Flow Rate FiO2 11/26/18 14:00 98.2 90 16 131/62 (85) 97 11/22/18 20:00 Room Air I&O- Last 24 Hours up to 6 AM 11/26/18 06:00 Intake Total 3105 ml Output Total 1150 ml Balance 1955 ml Laboratory Data 24H LABS Laboratory Tests 2 11/26/18 05:33: Immature Granulocyte % (Auto) , White Blood Count 1.7L, Red Blood Count 2.34L, Hemoglobin 7.0L, Hematocrit 21.0L, Mean Corpuscular Volume 89.7, Mean Corpuscular Hemoglobin 29.9, Mean Corpuscular Hemoglobin Concent 33.3, Red Cell Distribution Width 18.2H, Platelet Count 47L, Lymphocytes # (Auto) , Nucleated Red Blood Cells % (auto) 0.0, Neutrophils 72, Band Neutrophils 5, Lymphocytes (Manual) 15L, Monocytes (Manual) 2, Eosinophils (Manual) 1, Basophils (Manual) 1, Myelocytes 1H, Atypical Lymphocytes 3, Toxic Granulation 1+, Dohle Bodies 1+, Platelet Estimate DECREASED, Poikilocytosis 1+, Anisocytosis 2+, Microcytosis 1+, Anion Gap 7L, Glomerular Filtration Rate > 60.0, Blood Urea Nitrogen 6L, Creatinine 0.84, Sodium Level 132L, Potassium Level 3.5, Chloride Level 101, Carbon Dioxide Level 24, Calcium Level 6.9L, Phosphorus Level 2.0L, Magnesium Level 1.6L 11/26/18 08:29: Immature Granulocyte % (Auto) , White Blood Count 1.6L, Red Blood Count 2.28L, Hemoglobin 6.8*L, Hematocrit 20.5L, Mean Corpuscular Volume 89.9, Mean Corpuscular Hemoglobin 29.8, Mean Corpuscular Hemoglobin Concent 33.2, Red Cell Distribution Width 18.3H, Platelet Count 41L, Lymphocytes # (Auto) , Nucleated Red Blood Cells % (auto) 1.3H, Neutrophils 74, Band Neutrophils 7, Lymphocytes (Manual) 8L, Monocytes (Manual) 4, Basophils (Manual) 1, Myelocytes 4H, Atypical Lymphocytes 2, Platelet Estimate MARKED DECREASE, Poikilocytosis 1+, Anisocytosis 1+, Microcytosis 1+, Immature Platelet Fraction 3.1, Ovalocytes 1+ CBC/BMP Laboratory Tests 11/26/18 05:33 Red Blood Count 2.34 L, Mean Corpuscular Volume 89.7, Mean Corpuscular Hemoglobin 29.9, Mean Corpuscular Hemoglobin Concent 33.3, Red Cell Distribution Width 18.2 H, Lymphocytes # (Auto) , Calcium Level 6.9 L 11/26/18 08:29 Red Blood Count 2.28 L, Mean Corpuscular Volume 89.9, Mean Corpuscular Hemoglobin 29.8, Mean Corpuscular Hemoglobin Concent 33.2, Red Cell Distribution Width 18.3 H, Lymphocytes # (Auto) Microbiology Microbiology 11/22/18 Blood Culture - Preliminary, Resulted No Growth after 72 hours. All specime... 11/22/18 Blood Culture - Preliminary, Resulted No Growth after 72 hours. All specime... ISAMAR MACDONALD MD Nov 26, 2018 19:54
[2018-11-26] MEDS: SODIUM CHLORIDE 0.9% INJ 10 ML SYR IV PRN (20:53)
[2018-11-26 22:00] VITALS: BP 110/58
--- NOTE | 2018-11-27 01:03 | ECGEPIP ---
Stationary ECG Study [facility] - ED Test Date: 2018-11-22 Pat Name: RONALD ARORA Department: Room: [place] [address] Gender: M Voucher Clerk: ASHLEY : 1940 Requested By: John Bustillos Order Number: [id number] Reading MD: John Madrigal Measurements Intervals [place] Rate: 101 P: [place]: 0 QRS: 105 QRSD: 87 T: 61 QT: 325 QTc: 423 Interpretive Statements SINUS TACHYCARDIA WITH FREQUENT ATRIAL PREMATURE COMPLEXES INDETERMINATE AXIS MODERATE ST DEPRESSION Electronically Signed On 11-27-2018 1:03:54 EDT by John Madrigal
[2018-11-27 06:00] VITALS: BP 108/56
[2018-11-27] MEDS: SODIUM CHLORIDE 0.9% INJ 10 ML SYR IV SCH ×2 (06:13→17:58)
[2018-11-27] MEDS: KCL 40MEQ IN D5/NS 1000ML 1,000 ML IV SCH ×2 (06:13→18:40)
[2018-11-27 06:14] LABS: IONIZED CALCIUM 4.3 MG/DL (4.5-5.3)
[2018-11-27] MEDS: FAMOTIDINE IV BAG 20 MG in APPROPRIATE DILUENT 1 EA IV SCH ×2 (06:16→18:46)
[2018-11-27 06:41] LABS: MAGNESIUM LEVEL 1.7 MG/DL (1.8-2.4); PHOSPHORUS LEVEL 2.3 MG/DL (2.5-4.9)
[2018-11-27 06:48] LABS: ALBUMIN 1.7 GM/DL (3.2-5.2); ALT/SGPT 18 U/L (12-78); BILIRUBIN,TOTAL 0.6 MG/DL (0.2-1.0); BLOOD UREA NITROGEN 5 MG/DL (7-18); CALCIUM LEVEL 6.9 MG/DL (8.8-10.2); CARBON DIOXIDE LEVEL 26 MEQ/L (21-32); CHLORIDE LEVEL 102 MEQ/L (98-107); GLOMERULAR FILTRATION RATE > 60.0 (>42); GLUCOSE, FASTING 95 MG/DL (70-100); POTASSIUM SERUM 3.3 MEQ/L (3.5-5.1); SODIUM LEVEL 134 MEQ/L (136-145); TOTAL PROTEIN 3.8 GM/DL (6.4-8.2)
[2018-11-27] MEDS: METOPROLOL TART 12.5 MG PER 1/2 TAB PO SCH ×3 (09:00→20:30)
[2018-11-27] MEDS: NYSTATIN 500,000 U/5 ML SUSP UDC SS SCH ×4 (09:00→20:30)
[2018-11-27] MEDS: GI COCKTAIL 50ML BTL(HYOSCYAMINE/MAALOX/LIDOCAINE VISCOUS)(1:3:1) PO SCH ×4 (09:00→20:30)
[2018-11-27] MEDS: CALCIUM GLUCONATE 1,000 MG in D5W MINI-BAG PLUS 100 ML IV SCH ×2 (09:13→10:41)
[2018-11-27 09:37] LABS: HEMATOCRIT 22.6 % (42.0-52.0); HEMOGLOBIN 7.5 g/dl (13.5-17.5); MEAN CORPUSCULAR HEMOGLOBIN 29.5 pg (27.0-33.0); MEAN CORPUSCULAR HGB CONC 33.2 g/dl (32.0-36.5); RED BLOOD COUNT 2.54 10^6/uL (4.30-6.10)
[2018-11-27 09:47] LABS: PLATELET COUNT, AUTOMATED 40 10^3/uL (150-450); WHITE BLOOD COUNT 1.8 10^3/uL (4.0-10.0)
[2018-11-27 10:40] LABS: LYMPHOCYTES 21 % (16-52); MONOCYTES 4 % (0-8); NEUTROPHILS 75 % (35-75)
[2018-11-27 10:41] LABS: PLATELET ESTIMATE MARKED DECREASE (NORMAL)
[2018-11-27] MEDS: MAG SULF 1GM/100ML (MAG RUN) 1 GM in APPROPRIATE DILUENT 1 EA IV SCH ×4 (10:41→13:55)
[2018-11-27] MEDS: SUCRALFATE SUSP 1GM/10ML UD PO SCH ×3 (12:00→20:30)
[2018-11-27] MEDS: FLUCONAZOLE 200 MG in APPROPRIATE DILUENT 1 EA IV SCH (13:45)
[2018-11-27 14:00] VITALS: BP 158/88
[2018-11-27] MEDS ORDERED: POTASSIUM PHOSPHATE INJ 30 MMOL in D5W 500 ML IV ONE (14:00)
--- NOTE | 2018-11-27 18:37 | CR ---
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 The patient is negative for ALK, ROS-1, EGFR and PDL-1 showing 0 expression. He had been started on combined modality Taxol and carboplatin with radiation therapy. He initially had presented with hemoptysis, which was the reason the radiation was initiated. He had an improvement in his hemoptysis and had no further signs of any bright red blood per his sputum after at least three radiation treatments. He does have in the treatment portal area of the esophagus, and the patient began to experience signs of grade I to II esophagitis. He had been getting the Taxol weekly at 50 mg per meter square. Had also developed some hyponatremia. The patient was given IV hydration on an outpatient basis and he was given meclocycline to maintain his sodium levels as well. He was given an oncology mouthwash swish and swallow in order to alleviate some of his symptoms. The patient is currently admitted. He has marked dysphagia, marked discomfort, and is unable to take in any oral nutrition. He is developing some mucositis with some blood tinged sputum as well. PAST MEDICAL HISTORY: 1. Chronic obstructive pulmonary disease (COPD). 2. History of a pacemaker. 3. History of cancer of the soft palate, status post resection and radiation in 2013. 4. Prior feeding tube in the past. 5. Colostomy with reversal due to diverticulitis. 6. Essential hypertension. 7. Peptic ulcer disease. 8. Abdominal aortic aneurysm. 9. Status post tonsillectomy. 10. Cataract surgery. ALLERGIES: IODINE. SOCIAL HISTORY: Currently not . He is a former smoker. He stopped in 2018. He was a 1-1/2 pack a day smoker for about 30 years. CURRENT MEDICATIONS: The patient had been on dexamethasone, premedication for chemotherapy. - finasteride 5 mg by mouth daily - metoprolol 25 mg by mouth at night - ranitidine one tablet by mouth twice a day - Carafate switch and swallow suspension CURRENT VITAL SIGNS: As per RN sheet. HEENT: Normocephalic, atraumatic. He has grade 3 to 4 mucositis, irritated buccal mucosa with some blood tinged sputum, tongue is somewhat swollen and tender. His lips are somewhat dry, parched. His neck is otherwise supple. Chest with decreased breath sounds at the bases. Cardiovascular: S1, S2 appreciated. Abdomen is otherwise soft, nontender. LABORATORY DATA: The patient has a sodium of approximately 130, WBC count was 1.8, hemoglobin 7.5 on the , hematocrit 22, platelet count 40, neutrophils 76, absolute neutrophil count is 900. IMPRESSION: 1. Pancytopenia secondary to combined modality chemotherapy and radiation, along with radiation esophagitis. PLAN: Transfuse the patient to maintain a hemoglobin above 8. Neupogen support in order to get his ANC in the 1500 range. IV hydration. The patient can get TPN as his mucositis is expected to be temporary and he will not get any further radiation after this hospitalization and be maintained only on chemotherapy. PEG tube only if the patient is expected to be on IV hydration for more than 7 days.
--- NOTE | 2018-11-27 20:21 | IPNPDOC ---
Subjective Date Seen The patient was seen on 11/27/18. Subjective Chief Complaint/HPI Patient with right lung cancer undergoing chemotherapy admitted for generalized weakness as well as diarrhea secondary to odynophagia Events since last encounter Patient reports he is still having difficulty swallowing liquids. Had a few sips. No nausea or vomiting. Denies chest pain or shortness of breath. No abdominal pain. Denies any diarrhea or constipation. Denies any difficulty urinating. Has not been out of the bed. Objective Physical Examination General Exam: Positive: Other (Lying in bed, weak appearing.) Eye Exam: Positive: PERRLA ENT Exam: Positive: Other ENT (Superficial ulceration over the tongue. Whitish patches over tongue) Chest Exam: Positive: Clear to auscultation, Normal air movement; Negative: Rales, Rhonchi, Wheezing Heart Exam: Positive: Rate Normal, Normal S1, Normal S2 Abdomen Exam: Positive: Soft; Negative: Tenderness Neuro Exam: Positive: Other (awake, alert, answered questions appropriately.) Assessment /Plan Assessment Dehydration secondary to chemotherapy associated diarrhea and poor oral intake: -The poor oral intake is likely related to painful swallowing related to chemotherapy -Oral thrush on examcannot rule out oropharyngeal/esophageal candidiasis. Benoit fernandez did not wish to pursue EGD wanted to proceed with empiric treatment with Diflucan - on same - plan 7 days Rx -Continue Magic mouthwash, GI cocktail -Encouraged Ensure Clear -Continue IV fluids -Full liquid diet -prn zofran -Discussed with patient as well as son at bedside regarding TPN if he wanted to continue with medical treatments was his hospice if in wanted to go home, as otherwise he is not medically ready for discharge. Patient did mention several times that he would want to discharged, but did not seem to want hospice at this time. This afternoon, both patient's sons and the patient had discussion and they have decided to proceed with TPN and requested PEG tube as well if needed. Discussed with Dr. Roman from Gen. surgeryrecommends trial of TPN and if patient is still unable to tolerate oral intake, advises to reconsult him for PEG tube placement. Worsening pancytopenia secondary to chemotherapy with some dilutional effect: -Hemoglobin 6.8 today -Transfuse 1 unit packed RBC -No indication for platelet transfusion -Consulted hematology oncologypatient sees Dr. Danielle Wray Oral thrush: -Cannot rule out underlying esophageal candidiasis given patient's reported s ignificant pain in esophagus with swallowing -Ct IV Diflucan Hypomagnesemia -Replete and recheck Hypophosphatemia -Replete and recheck Hypocalcemia: -Replete and recheck Generalized weakness: -PT/OT Hypertension: -Continue metoprolol with holding parameters Sinus tachycardia: -Resolved -Was likely related to dehydration Right lower lobe small cell lung cancer: -No inpatient intervention/workup. -Consulted hematology oncology DVT prophylaxis: -SCDs. No subcutaneous heparin or enoxaparin in view of thrombocytopenia Plan/VTE VTE Prophylaxis Ordered?: Yes VTE Exclusion Pharmacological: Thrombocytopenia VS, I&O, 24H, Fishbone Vital Signs/I&O Vital Signs Date Time Temp Pulse Resp B/P (MAP) Pulse Ox O2 Delivery O2 Flow Rate FiO2 11/27/18 14:00 99.2 90 18 158/88 (111) 96 11/22/18 20:00 Room Air I&O- Last 24 Hours up to 6 AM 11/27/18 06:00 Intake Total 650 ml Output Total 2225 ml Balance -1575 ml Laboratory Data 24H LABS Laboratory Tests 2 11/27/18 06:07: Anion Gap 6L, Glomerular Filtration Rate > 60.0, Blood Urea Nitrogen 5L, Creatinine 0.70, Sodium Level 134L, Potassium Level 3.3L, Chloride Level 102, Carbon Dioxide Level 26, Calcium Level 6.9L, Aspartate Amino Transf (AST/SGOT) 20, Alanine Aminotransferase (ALT/SGPT) 18, Alkaline Phosphatase 61, Total Bilirubin 0.6, Total Protein 3.8L, Albumin 1.7L, Whole Blood Ionized Calcium 4.3L, Phosphorus Level 2.3L, Magnesium Level 1.7L, Albumin/Globulin Ratio 0.81L, Prealbumin 7.0L 11/27/18 09:11: Immature Granulocyte % (Auto) , Nucleated Red Blood Cells % (auto) 1.1H, Neutrophils 75, Lymphocytes (Manual) 21, Monocytes (Manual) 4, Platelet Estimate MARKED DECREASE, Immature Platelet Fraction 4.5, Red Blood Cell Morphology NORMAL CBC/BMP Laboratory Tests 11/27/18 06:07 Calcium Level 6.9 L, Aspartate Amino Transf (AST/SGOT) 20, Alanine Aminotransferase (ALT/SGPT) 18, Alkaline Phosphatase 61, Total Bilirubin 0.6, Total Protein 3.8 L, Albumin 1.7 L 11/27/18 09:11 Red Blood Count 2.54 L, Mean Corpuscular Volume 89.0, Mean Corpuscular Hemoglobin 29.5, Mean Corpuscular Hemoglobin Concent 33.2, Red Cell Distribution Width 17.2 H Microbiology Microbiology 11/22/18 Blood Culture - Final, Complete NO GROWTH AFTER 5 DAYS 11/22/18 Blood Culture - Final, Complete NO GROWTH AFTER 5 DAYS ISAMAR MACDONALD MD Nov 27, 2018 20:21
[2018-11-27] MEDS: FILGRASTIM 300 MCG/0.5 ML SYRINGE (J1442 PER 1MCG) SC SCH (20:56)
[2018-11-27] MEDS: SODIUM CHLORIDE 0.9% INJ 10 ML SYR IV PRN (21:36)
[2018-11-27 22:00] VITALS: BP 126/65
[2018-11-27] MEDS: ACETAMINOPHEN 650 MG SUPP PR PRN (23:49)
[2018-11-28 06:00] VITALS: BP 119/61
[2018-11-28] MEDS: FAMOTIDINE IV BAG 20 MG in APPROPRIATE DILUENT 1 EA IV SCH ×2 (06:35→18:08)
[2018-11-28] MEDS: SODIUM CHLORIDE 0.9% INJ 10 ML SYR IV SCH ×2 (06:35→18:00)
[2018-11-28 07:03] LABS: HEMATOCRIT 23.7 % (42.0-52.0); HEMOGLOBIN 7.8 g/dl (13.5-17.5); MEAN CORPUSCULAR HEMOGLOBIN 29.5 pg (27.0-33.0); MEAN CORPUSCULAR HGB CONC 32.9 g/dl (32.0-36.5); MEAN CORPUSCULAR VOLUME 89.8 fl (80.0-96.0); RED BLOOD COUNT 2.64 10^6/uL (4.30-6.10); WHITE BLOOD COUNT 3.4 10^3/uL (4.0-10.0)
[2018-11-28 07:05] LABS: PLATELET COUNT, AUTOMATED 39 10^3/uL (150-450)
[2018-11-28] MEDS: SUCRALFATE SUSP 1GM/10ML UD PO SCH ×4 (07:30→20:14)
[2018-11-28 07:34] LABS: BLOOD UREA NITROGEN 4 MG/DL (7-18); CARBON DIOXIDE LEVEL 25 MEQ/L (21-32); CHLORIDE LEVEL 104 MEQ/L (98-107); CREATININE FOR GFR 0.72 MG/DL (0.70-1.30); GLOMERULAR FILTRATION RATE > 60.0 (>42); GLUCOSE, FASTING 98 MG/DL (70-100); MAGNESIUM LEVEL 1.9 MG/DL (1.8-2.4); PHOSPHORUS LEVEL 2.4 MG/DL (2.5-4.9); SODIUM LEVEL 136 MEQ/L (136-145)
[2018-11-28 07:39] LABS: ATYPICAL LYMPH 2 % (0-5); BLAST CELLS 1 % (0-0); LYMPHOCYTES 9 % (16-52); METAMYELOCYTES 5 % (0-0); MONOCYTES 3 % (0-8); MYELOCYTES 4 % (0-0); NEUTROPHILS 65 % (35-75)
[2018-11-28 07:40] LABS: ANISOCYTOSIS 1+; MICROCYTOSIS 1+; POIKILOCYTOSIS 1+
[2018-11-28 07:41] LABS: PLATELET ESTIMATE MARKED DECREASE (NORMAL)
[2018-11-28] MEDS: METOPROLOL TART 12.5 MG PER 1/2 TAB PO SCH (07:55)
[2018-11-28] MEDS: GI COCKTAIL 50ML BTL(HYOSCYAMINE/MAALOX/LIDOCAINE VISCOUS)(1:3:1) PO SCH ×4 (07:55→20:15)
[2018-11-28] MEDS: NYSTATIN 500,000 U/5 ML SUSP UDC SS SCH ×4 (07:56→20:15)
[2018-11-28] MEDS: KCL 40MEQ IN D5/NS 1000ML 1,000 ML IV SCH ×2 (08:17→20:19)
[2018-11-28] MEDS: FILGRASTIM 300 MCG/0.5 ML SYRINGE (J1442 PER 1MCG) SC SCH (09:48)
[2018-11-28] MEDS: MORPHINE 4 MG/ML 1ML VIAL/SYRINGE (J2270) IV PRN ×4 (09:48→22:52)
--- NOTE | 2018-11-28 10:08 | IPNPDOC ---
Text Note Date of Service The patient was seen on 11/28/18. NOTE Subjective: Patient seen and examined at bedside. Son at bedside. No acute overnight events reported. Still complains of severe pain with swallowing. No other new medical complaints. Objective: General: lying in bed, chronically ill appearing HEENT: NC/AT, ulcerations on tongue Lungs: CTA B/L Heart: +S1S2, RRR Abd: soft, NT A/P: 78 yo male with lung cancer undergoing chemotherapy admitted for generalized weakness, diarrhea, odynophagia. #Dehydration secondary to chemotherapy associated diarrhea and poor oral intake: -The poor oral intake is likely related to painful swallowing related to chemotherapy -Oral thrush on examcannot rule out oropharyngeal/esophageal candidiasis. Patient did not wish to pursue EGD wanted to proceed with empiric treatment with Diflucan - on same - plan 7 days Rx -Continue Magic mouthwash, GI cocktail -Continue IV fluids -IV morphine PRN - start TPN today - follow as per heme/onc -prn zofran - d/w patient/son regarding PEG tube - he has had PEG in the past; will wait to see how long needs TPN, previous d/w Dr. Gandara regarding PEG tube #pancytopenia - secondary to chemotherapy with some dilutional effect: - improving - s/p 1 PRBC - follow as per heme/onc - sees Dr. Danielle Wray #Oral thrush: -Cannot rule out underlying esophageal candidiasis given patient's reported significant pain in esophagus with swallowing - IV Diflucan #Hypomagnesemia -Replete and recheck #Hypophosphatemia -Replete and recheck #Hypocalcemia: -Replete and recheck #Generalized weakness: -PT/OT #Hypertension: -Continue metoprolol with holding parameters #Sinus tachycardia: -Resolved -Was likely related to dehydration #Right lower lobe small cell lung cancer: -No inpatient intervention/workup. -Consulted hematology oncology #DVT prophylaxis: -SCDs. No subcutaneous heparin or enoxaparin in view of thrombocytopenia Dispo: start TPN, continue IV pain meds, IV fluids, follow clinically if odynophagia improves, try oral diet, if not consider PEG A-FIB/CHADSVASC A-FIB History Current/History of A-Fib/PAF?: No VS,Fishbone, I+O VS, Fishbone, I+O Laboratory Tests 11/28/18 06:41 Red Blood Count 2.64 L, Mean Corpuscular Volume 89.8, Mean Corpuscular Hemoglobin 29.5, Mean Corpuscular Hemoglobin Concent 32.9, Red Cell Distribution Width 17.3 H, Lymphocytes # (Auto) , Calcium Level 7.0 L Vital Signs Date Time Temp Pulse Resp B/P (MAP) Pulse Ox O2 Delivery O2 Flow Rate FiO2 11/28/18 09:48 18 11/28/18 06:00 98.5 82 119/61 (80) 95 11/22/18 20:00 Room Air I&O- Last 24 Hours up to 6 AM 11/28/18 06:00 Intake Total 2350 ml Output Total 2025 ml Balance 325 ml IBIS CHIU MD Nov 28, 2018 10:08
[2018-11-28] MEDS: FLUCONAZOLE 200 MG in APPROPRIATE DILUENT 1 EA IV SCH (13:19)
[2018-11-28 14:00] VITALS: BP 124/74
[2018-11-28 22:00] VITALS: BP 130/62
[2018-11-29] MEDS: SODIUM CHLORIDE 0.9% INJ 10 ML SYR IV SCH ×2 (05:51→19:00)
[2018-11-29] MEDS: FAMOTIDINE IV BAG 20 MG in APPROPRIATE DILUENT 1 EA IV SCH ×2 (05:51→19:02)
[2018-11-29] MEDS: MORPHINE 4 MG/ML 1ML VIAL/SYRINGE (J2270) IV PRN (05:53)
[2018-11-29 06:00] VITALS: BP 111/64
[2018-11-29] MEDS: SUCRALFATE SUSP 1GM/10ML UD PO SCH ×4 (07:30→20:35)
[2018-11-29 07:38] LABS: HEMATOCRIT 23.9 % (42.0-52.0); HEMOGLOBIN 7.7 g/dl (13.5-17.5); MEAN CORPUSCULAR HEMOGLOBIN 29.1 pg (27.0-33.0); MEAN CORPUSCULAR HGB CONC 32.2 g/dl (32.0-36.5); MEAN CORPUSCULAR VOLUME 90.2 fl (80.0-96.0); RED BLOOD COUNT 2.65 10^6/uL (4.30-6.10); WHITE BLOOD COUNT 6.3 10^3/uL (4.0-10.0)
[2018-11-29 07:39] LABS: PLATELET COUNT, AUTOMATED 49 10^3/uL (150-450)
[2018-11-29 08:04] LABS: ALBUMIN 1.7 GM/DL (3.2-5.2); ALT/SGPT 20 U/L (12-78); BILIRUBIN,TOTAL 0.5 MG/DL (0.2-1.0); BLOOD UREA NITROGEN 5 MG/DL (7-18); CALCIUM LEVEL 7.4 MG/DL (8.8-10.2); CARBON DIOXIDE LEVEL 25 MEQ/L (21-32); CHLORIDE LEVEL 105 MEQ/L (98-107); CREATININE FOR GFR 0.73 MG/DL (0.70-1.30); GLOMERULAR FILTRATION RATE > 60.0 (>42); GLUCOSE, FASTING 91 MG/DL (70-100); MAGNESIUM LEVEL 1.5 MG/DL (1.8-2.4); PHOSPHORUS LEVEL 1.9 MG/DL (2.5-4.9); POTASSIUM SERUM 4.7 MEQ/L (3.5-5.1); SODIUM LEVEL 134 MEQ/L (136-145); TOTAL PROTEIN 4.2 GM/DL (6.4-8.2)
[2018-11-29 08:19] LABS: ATYPICAL LYMPH 3 % (0-5); EOSINOPHILS 2 % (0-5); LYMPHOCYTES 8 % (16-52); METAMYELOCYTES 2 % (0-0); MONOCYTES 1 % (0-8); MYELOCYTES 4 % (0-0); NEUTROPHILS 62 % (35-75)
[2018-11-29 08:20] LABS: ANISOCYTOSIS 1+; DOHLE BODIES 1+; MICROCYTOSIS 1+; PLATELET ESTIMATE MARKED DECREASE (NORMAL); TOXIC GRANULATION 1+
[2018-11-29 08:21] LABS: POIKILOCYTOSIS 1+
--- NOTE | 2018-11-29 08:53 | IPNPDOC ---
Text Note Date of Service The patient was seen on 11/29/18. NOTE Subjective: Patient seen and examined at bedside. Feels marginally better today. No new medical complaints. Objective: General: lying in bed, chronically ill appearing HEENT: NC/AT, ulcerations on tongue Lungs: CTA B/L Heart: +S1S2, RRR Abd: soft, NT A/P: 78 yo male with lung cancer undergoing chemotherapy admitted for generalized weakness, diarrhea, odynophagia. #Dehydration secondary to chemotherapy associated diarrhea and poor oral intake: -The poor oral intake is likely related to painful swallowing related to chemotherapy -Oral thrush on examcannot rule out oropharyngeal/esophageal candidiasis. Patient did not wish to pursue EGD wanted to proceed with empiric treatment with Diflucan - on same - plan 7 days Rx -Continue Magic mouthwash, GI cocktail -Continue IV fluids -IV morphine PRN - start TPN today - follow as per heme/onc -prn zofran - d/w patient/son regarding PEG tube - he has had PEG in the past; will wait to see how long needs TPN, previous d/w Dr. Gandara regarding PEG tube #pancytopenia - leukopenia resolved - Hgb/Plt slightly worsened - secondary to chemotherapy with some dilutional effect: - s/p 1 PRBC - follow as per heme/onc - sees Dr. Danielle Wray #Oral thrush: -Cannot rule out underlying esophageal candidiasis given patient's reported significant pain in esophagus with swallowing - IV Diflucan #Hypomagnesemia -Replete and recheck #Hypophosphatemia -Replete and recheck #Hypocalcemia: -Replete and recheck #Generalized weakness: -PT/OT #Hypertension: -Continue metoprolol with holding parameters #Sinus tachycardia: -Resolved -Was likely related to dehydration #Right lower lobe small cell lung cancer: -No inpatient intervention/workup. -Consulted hematology oncology #DVT prophylaxis: -SCDs. No subcutaneous heparin or enoxaparin in view of thrombocytopenia Dispo: plan for PICC line today, then start TPN; continue IV pain meds, IV fluids, follow clinically if odynophagia improves, try oral diet, if not consid er PEG A-FIB/CHADSVASC A-FIB History Current/History of A-Fib/PAF?: No VS,Fishbone, I+O VS, Fishbone, I+O Laboratory Tests 11/29/18 07:02 Red Blood Count 2.65 L, Mean Corpuscular Volume 90.2, Mean Corpuscular Hemoglobin 29.1, Mean Corpuscular Hemoglobin Concent 32.2, Red Cell Distribution Width 17.7 H, Calcium Level 7.4 L, Phosphorus Level 1.9 #L, Aspartate Amino Transf (AST/SGOT) 16, Alanine Aminotransferase (ALT/SGPT) 20, Alkaline Phosphatase 71, Total Bilirubin 0.5, Total Protein 4.2 L, Albumin 1.7 L Vital Signs Date Time Temp Pulse Resp B/P (MAP) Pulse Ox O2 Delivery O2 Flow Rate FiO2 11/29/18 06:03 18 11/29/18 06:00 98.4 85 111/64 (80) 96 I&O- Last 24 Hours up to 6 AM 11/29/18 06:00 Intake Total 2000 ml Output Total 725 ml Balance 1275 ml IBIS CHIU MD Nov 29, 2018 08:52
[2018-11-29] MEDS: GI COCKTAIL 50ML BTL(HYOSCYAMINE/MAALOX/LIDOCAINE VISCOUS)(1:3:1) PO SCH ×4 (09:00→20:35)
[2018-11-29] MEDS: METOPROLOL TART 12.5 MG PER 1/2 TAB PO SCH ×2 (09:00→20:36)
[2018-11-29] MEDS: NYSTATIN 500,000 U/5 ML SUSP UDC SS SCH ×4 (09:00→20:36)
[2018-11-29] MEDS: KCL 40MEQ IN D5/NS 1000ML 1,000 ML IV SCH (09:31)
[2018-11-29] MEDS ORDERED: diphenhydrAMINE 25 MG CAP PO ONE (11:00)
[2018-11-29] MEDS: NS 1,000 ML IV SCH (11:00)
[2018-11-29] MEDS ORDERED: diphenhydrAMINE INJ 50MG/ML VIAL (J1200) IV ONE (12:00)
[2018-11-29] MEDS: FILGRASTIM 300 MCG/0.5 ML SYRINGE (J1442 PER 1MCG) SC SCH (13:04)
[2018-11-29] MEDS: FLUCONAZOLE 200 MG in APPROPRIATE DILUENT 1 EA IV SCH (13:06)
[2018-11-29 14:00] VITALS: BP 106/68
[2018-11-29] MEDS: ACETAMINOPHEN 650 MG SUPP PR PRN (14:24)
[2018-11-29] MEDS ORDERED: LIDOCAINE 1% MDV 20ML VIAL As Ordered ONE (15:45)
[2018-11-29] MEDS: SODIUM CHLORIDE 0.9% INJ 10 ML SYR IV PRN (20:37)
[2018-11-29 22:00] VITALS: BP 123/79
[2018-11-30] MEDS: KCL 40MEQ IN D5/NS 1000ML 1,000 ML IV SCH ×2 (01:12→13:20)
[2018-11-30] MEDS: FAMOTIDINE IV BAG 20 MG in APPROPRIATE DILUENT 1 EA IV SCH ×2 (04:54→18:38)
[2018-11-30] MEDS: MORPHINE 4 MG/ML 1ML VIAL/SYRINGE (J2270) IV PRN ×3 (05:51→14:33)
[2018-11-30] MEDS: SODIUM CHLORIDE 0.9% INJ 10 ML SYR IV SCH ×3 (05:52→21:14)
[2018-11-30 06:00] VITALS: BP 103/61
[2018-11-30] MEDS: SUCRALFATE SUSP 1GM/10ML UD PO SCH ×4 (07:30→20:15)
[2018-11-30] MEDS: METOPROLOL TART 12.5 MG PER 1/2 TAB PO SCH ×2 (07:41→20:15)
[2018-11-30] MEDS: GI COCKTAIL 50ML BTL(HYOSCYAMINE/MAALOX/LIDOCAINE VISCOUS)(1:3:1) PO SCH ×4 (07:41→20:15)
[2018-11-30] MEDS: NYSTATIN 500,000 U/5 ML SUSP UDC SS SCH ×4 (07:41→20:15)
[2018-11-30] MEDS: NS 1,000 ML IV SCH (07:42)
[2018-11-30 08:19] LABS: HEMATOCRIT 27.9 % (42.0-52.0); HEMOGLOBIN 9.3 g/dl (13.5-17.5); MEAN CORPUSCULAR HEMOGLOBIN 29.8 pg (27.0-33.0); MEAN CORPUSCULAR HGB CONC 33.3 g/dl (32.0-36.5); MEAN CORPUSCULAR VOLUME 89.4 fl (80.0-96.0); RED BLOOD COUNT 3.12 10^6/uL (4.30-6.10); WHITE BLOOD COUNT 8.8 10^3/uL (4.0-10.0)
[2018-11-30 08:23] LABS: PLATELET COUNT, AUTOMATED 49 10^3/uL (150-450)
[2018-11-30 08:47] LABS: BLOOD UREA NITROGEN 6 MG/DL (7-18); CALCIUM LEVEL 7.4 MG/DL (8.8-10.2); CARBON DIOXIDE LEVEL 24 MEQ/L (21-32); CHLORIDE LEVEL 107 MEQ/L (98-107); CREATININE FOR GFR 0.78 MG/DL (0.70-1.30); GLOMERULAR FILTRATION RATE > 60.0 (>42); GLUCOSE, FASTING 110 MG/DL (70-100); MAGNESIUM LEVEL 1.5 MG/DL (1.8-2.4); POTASSIUM SERUM 4.5 MEQ/L (3.5-5.1); SODIUM LEVEL 137 MEQ/L (136-145)
[2018-11-30 09:29] LABS: ATYPICAL LYMPH 1 % (0-5); BASOPHILS 1 % (0-4); EOSINOPHILS 2 % (0-5); LYMPHOCYTES 15 % (16-52); METAMYELOCYTES 3 % (0-0); MONOCYTES 3 % (0-8); NEUTROPHILS 73 % (35-75); PLATELET ESTIMATE DECREASED (NORMAL); POIKILOCYTOSIS 1+; TOXIC GRANULATION 3+; TOXIC VACUOLATION 2+
[2018-11-30 09:32] LABS: DOHLE BODIES 2+
[2018-11-30] MEDS: MAG SULF 1GM/100ML (MAG RUN) 1 GM in APPROPRIATE DILUENT 1 EA IV SCH ×3 (10:05→13:21)
--- NOTE | 2018-11-30 13:40 | IPNPDOC ---
Subjective Date Seen The patient was seen on 11/30/18. Subjective Chief Complaint/HPI Patient seen and examined at the bedside. He continues to have very poor PO intake. Denies any abdominal pain but does note odynophagia from underlying esophagitis from chemotherapy. Objective Physical Examination General Exam: Positive: Alert, Cooperative, No Acute Distress ENT Exam: Positive: Other ENT (Superficial ulceration over the tongue. Whitish patches over tongue) Chest Exam: Positive: Clear to auscultation, Normal air movement; Negative: Rales, Rhonchi, Wheezing Heart Exam: Positive: Rate Normal, Normal S1, Normal S2 Abdomen Exam: Positive: Soft; Negative: Tenderness Extremity Exam: Negative: Tenderness Neuro Exam: Positive: Other (awake, alert, answered questions appropriately.) A-FIB/CHADSVASC A-FIB History Current/History of A-Fib/PAF?: No Assessment /Plan Plan/VTE VTE Prophylaxis Ordered?: Yes VTE Exclusion Pharmacological: Thrombocytopenia Plan Dehydration secondary to chemotherapy associated diarrhea and poor oral intakee The poor oral intake is likely related to painful swallowing related to chemoth erapy Oral thrush on exam cannot rule out oropharyngeal/esophageal candidiasis. Patient did not wish to pursue EGD wanted to proceed with empiric treatment with Diflucan--he has completed a 7 day trial Continue Magic mouthwash, GI cocktail PICC Line placed on 11/29/18--TPN to be started today I had a long discussion with the patient and his son today at the bedside. Due to the patient's inability to take PO diet, they have decided on a feeding tube. I did discuss the case with the patient's Oncologist, Dr. Wray who agrees with the same. Case discussed with Dr. Bland who will tentatively plan to take the patient next week for feeding tube placement Pancytopenia 2/2 Chemotherapy Leukopenia, Anemia improved Heme/Onc on board Oral thrush s/p Diflucan trial Generalized weakness: PT/OT on board for functional optimization Hypertension Continue metoprolol with holding parameters Hx of Squ[place] Cell Ca of the RUL, Left Paratracheal Area, and RLL Nodue Hematology/Oncology on board DVT prophylaxis: SCDs Dispo: patient started on TPN today, will have feeding tube placed next week by general surgery. VS, I&O, 24H, Fishbone Vital Signs/I&O Vital Signs Date Time Temp Pulse Resp B/P (MAP) Pulse Ox O2 Delivery O2 Flow Rate FiO2 11/30/18 10:15 17 11/30/18 06:00 97.7 101 103/61 (75) 96 I&O- Last 24 Hours up to 6 AM 11/30/18 06:00 Intake Total 1240 ml Output Total 2425 ml Balance -1185 ml Laboratory Data 24H LABS Laboratory Tests 2 11/30/18 08:01: Immature Granulocyte % (Auto) , Nucleated Red Blood Cells % (auto) 0.0, Neutrophils 73, Band Neutrophils 2, Lymphocytes (Manual) 15L, Monocytes (Manual) 3, Eosinophils (Manual) 2, Basophils (Manual) 1, Metamyelocytes 3H, Atypical Lymphocytes 1, Poikilocytosis 1+, Toxic Granulation 3+, Dohle Bodies 2+, Toxic Vacuolation 2+, Platelet Estimate DECREASED, Immature Platelet Fraction 2.4, Anion Gap 6L, Glomerular Filtration Rate > 60.0, Blood Urea Nitrogen 6L, Creatin ine 0.78, Sodium Level 137, Potassium Level 4.5, Chloride Level 107, Carbon Dioxide Level 24, Calcium Level 7.4L, Magnesium Level 1.5L CBC/BMP Laboratory Tests 11/30/18 08:01 Red Blood Count 3.12 L, Mean Corpuscular Volume 89.4, Mean Corpuscular Hemoglobin 29.8, Mean Corpuscular Hemoglobin Concent 33.3, Red Cell Distribution Width 17.2 H, Calcium Level 7.4 L Microbiology Microbiology 11/28/18 Blood Culture - Preliminary, Resulted No Growth after 48 hours. All Specime... 11/28/18 Blood Culture - Preliminary, Resulted No Growth after 48 hours. All Specime... 11/22/18 Blood Culture - Final, Complete NO GROWTH AFTER 5 DAYS 11/22/18 Blood Culture - Final, Complete NO GROWTH AFTER 5 DAYS NAI POZO MD Nov 30, 2018 13:40
[2018-11-30 14:00] VITALS: BP 118/70
--- NOTE | 2018-11-30 15:59 | REP ---
PICC line insertion under ultrasound guidance. The procedure was performed by JAH Willis, under the direct supervision of Dr. Gregory. The risks and benefits of the procedure were explained to the patient and informed consent was obtained the verbally and written. Directly prior to the start of the procedure, a formal timeout was completed in the procedure room. The left basilic vein was localized using ultrasound guidance. The skin was prepped and draped in the sterile fashion. 1 ml 1% lidocaine was used as a local anesthetic. Using ultrasound guidance the left basilic vein was cannulated and a 0.018 guidewire was inserted and advanced to the SVC using fluoroscopic guidance. The needle was removed and a 4 Wallisian dilator and peel-away sheath was inserted over the guidewire. A 5.5 Wallisian dual lumen catheter was cut to the length of 35 cm. The dilator was removed and the catheter was inserted over the guide wire with the tip ending in the SVC. The peel-away sheath was removed and the catheter was flushed with heparinized saline as per hospital protocol. The catheter was affixed to the skin and a sterile dressing was applied. The patient tolerated the procedure well and there were no immediate complications. 0.8 minutes of fluoroscopy y time was utilized for this procedure. Reviewed by JAH Eugene 11/30/2018 08:26 A Electronically Signed by Fitz Gregory MD 11/30/2018 01:05 P
--- NOTE | 2018-11-30 16:40 | IPNPDOC ---
Date Seen The patient was seen on 11/30/18. Progress Note SUBJECTIVE: The patietn has grade 3-4 mucositis and is still unable to eat after several days painful swallowing is noted OBJECTIVE PHYSICAL EXAMINATION: VITAL SIGNS: Please see below. GENERAL: HEENT: [ + mouth sores erythema througout the yanet cavity tongue with lesions as well , CARDIOVASCULAR: [S1 S2 RRR . RESPIRATORY: [decreased BS at the bases ]. ABDOMINAL: soft no HSM EXTREMITIES: [no cce n o skin rashes or edema ] NEUROLOGICAL: [intact] PSYCHOLOGICAL: [fatigue and depression ] LABORATORY DATA, IMAGING STUDIES, MICROBIOLOGY: Please see below. Laboratory Tests 11/29/18 07:02 Red Blood Count 2.65 L, Mean Corpuscular Volume 90.2, Mean Corpuscular Hemoglobin 29.1, Mean Corpuscular Hemoglobin Concent 32.2, Red Cell Distribution Width 17.7 H, Calcium Level 7.4 L, Phosphorus Level 1.9 #L, Aspartate Amino Transf (AST/SGOT) 16, Alanine Aminotransferase (ALT/SGPT) 20, Alkaline Phosphatase 71, Total Bilirubin 0.5, Total Protein 4.2 L, Albumin 1.7 L 11/30/18 08:01 Red Blood Count 3.12 L, Mean Corpuscular Volume 89.4, Mean Corpuscular Hemoglobin 29.8, Mean Corpuscular Hemoglobin Concent 33.3, Red Cell Distribution Width 17.2 H, Calcium Level 7.4 L Echocardiogram: . DVT prophylaxis ordered?: ASSESSMENT AND PLAN: This is a -year-old [RACE] [GENDER] with . PROBLEMS: 1. : [Grade 3-4 mucositis chemo and radiation induced ]. 2. : NSCLCA . 3. : [Chemo related tube placement ai anemia ]. DISPOSITION: [ The patient will need a PEG tube placement as he is likely not resolving the mucositis quickly and is loosing weight Plan support with transfusions for Hgb < or = to 8 hold neupgen if the ANC reaches 5,000 PEG tube placement A-FIB/CHADSVASC A-FIB History Current/History of A-Fib/PAF?: No Current Oral Anticoagulant The: No Age/Risk Factor Scoring CHADSVASC: CHADSVASC Response (Comments) Value Age Risk Factor Age >/= 75 years old 2 Total 2 Treatment Treatment ordered: NONE Other reason anticoagulant not: low platelet counts VS, I&O, 24H, Fishbone Vital Signs/I&O Vital Signs Date Time Temp Pulse Resp B/P (MAP) Pulse Ox O2 Delivery O2 Flow Rate FiO2 11/30/18 14:43 16 11/30/18 14:00 97.1 130 118/70 (86) 97 I&O- Last 24 Hours up to 6 AM 11/30/18 06:00 Intake Total 1240 ml Output Total 2425 ml Balance -1185 ml Laboratory Data 24H LABS Laboratory Tests 2 11/30/18 08:01: Immature Granulocyte % (Auto) , Nucleated Red Blood Cells % (auto) 0.0, Neutrophils 73, Band Neutrophils 2, Lymphocytes (Manual) 15L, Monocytes (Manual) 3, Eosinophils (Manual) 2, Basophils (Manual) 1, Metamyelocytes 3H, Atypical Lymphocytes 1, Poikilocytosis 1+, Toxic Granulation 3+, Dohle Bodies 2+, Toxic Vacuolation 2+, Platelet Estimate DECREASED, Immature Platelet Fraction 2.4, Ani on Gap 6L, Glomerular Filtration Rate > 60.0, Blood Urea Nitrogen 6L, Creatinine 0.78, Sodium Level 137, Potassium Level 4.5, Chloride Level 107, Carbon Dioxide Level 24, Calcium Level 7.4L, Magnesium Level 1.5L CBC/BMP Laboratory Tests 11/30/18 08:01 Red Blood Count 3.12 L, Mean Corpuscular Volume 89.4, Mean Corpuscular Hemoglobin 29.8, Mean Corpuscular Hemoglobin Concent 33.3, Red Cell Distribution Width 17.2 H, Calcium Level 7.4 L Microbiology Microbiology 11/28/18 Blood Culture - Preliminary, Resulted No Growth after 48 hours. All Specime... 11/28/18 Blood Culture - Preliminary, Resulted No Growth after 48 hours. All Specime... 11/22/18 Blood Culture - Final, Complete NO GROWTH AFTER 5 DAYS 11/22/18 Blood Culture - Final, Complete NO GROWTH AFTER 5 DAYS Danielle Wray MD Nov 30, 2018 16:40
[2018-11-30] MEDS: HumaLOG INSULIN (NovoLOG) PER UNIT SC SCH (17:08)
[2018-11-30] MEDS ORDERED: MULTIVITAMIN -ADULT INJECTION 10 ML, CR/CU/SE/MN/ZN INJ 1 ML in AMINO AC/ELECTROLYTE/DE... IV SCH (18:00)
[2018-11-30] MEDS ORDERED: FAT EMULSION IV 20% 500 ML IV SCH (18:00)
[2018-11-30 22:00] VITALS: BP 106/75
[2018-12-01] MEDS: HumaLOG INSULIN (NovoLOG) PER UNIT SC SCH ×3 (00:38→12:10)
[2018-12-01 06:00] VITALS: BP 108/70
[2018-12-01] MEDS: FAMOTIDINE IV BAG 20 MG in APPROPRIATE DILUENT 1 EA IV SCH ×2 (06:17→18:08)
[2018-12-01 06:22] LABS: MEAN CORPUSCULAR HEMOGLOBIN 30.2 pg (27.0-33.0); MEAN CORPUSCULAR HGB CONC 33.3 g/dl (32.0-36.5); MEAN CORPUSCULAR VOLUME 90.6 fl (80.0-96.0); RED BLOOD COUNT 2.98 10^6/uL (4.30-6.10); WHITE BLOOD COUNT 8.4 10^3/uL (4.0-10.0)
[2018-12-01 06:25] LABS: PLATELET COUNT, AUTOMATED 55 10^3/uL (150-450)
[2018-12-01 06:49] LABS: BLOOD UREA NITROGEN 10 MG/DL (7-18); CALCIUM LEVEL 7.3 MG/DL (8.8-10.2); CARBON DIOXIDE LEVEL 27 MEQ/L (21-32); CHLORIDE LEVEL 100 MEQ/L (98-107); CREATININE FOR GFR 0.84 MG/DL (0.70-1.30); GLOMERULAR FILTRATION RATE > 60.0 (>42); GLUCOSE, FASTING 140 MG/DL (70-100); MAGNESIUM LEVEL 1.9 MG/DL (1.8-2.4); SODIUM LEVEL 132 MEQ/L (136-145)
[2018-12-01] MEDS: SODIUM CHLORIDE 0.9% INJ 10 ML SYR IV SCH ×2 (07:00→18:00)
[2018-12-01] MEDS: SUCRALFATE SUSP 1GM/10ML UD PO SCH ×4 (07:30→20:00)
[2018-12-01] MEDS: METOPROLOL TART 12.5 MG PER 1/2 TAB PO SCH ×2 (09:00→20:00)
[2018-12-01] MEDS: NYSTATIN 500,000 U/5 ML SUSP UDC SS SCH ×4 (09:00→20:00)
[2018-12-01] MEDS: GI COCKTAIL 50ML BTL(HYOSCYAMINE/MAALOX/LIDOCAINE VISCOUS)(1:3:1) PO SCH ×4 (09:00→20:00)
[2018-12-01 09:30] VITALS: BP 106/68
[2018-12-01 14:00] VITALS: BP 98/66
--- NOTE | 2018-12-01 14:20 | IPNPDOC ---
Subjective Date Seen The patient was seen on 12/01/18. Subjective Chief Complaint/HPI Patient seen and examined at bedside. No acute overnight events noted. Objective Physical Examination General Exam: Positive: Alert, Cooperative, No Acute Distress ENT Exam: Positive: Other ENT (Superficial ulceration over the tongue. Whitish patches over tongue, changes consistent with mucousitis) Chest Exam: Positive: Clear to auscultation, Normal air movement; Negative: Rales, Rhonchi, Wheezing Heart Exam: Positive: Rate Normal, Normal S1, Normal S2 Abdomen Exam: Positive: Soft; Negative: Tenderness Extremity Exam: Negative: Tenderness Neuro Exam: Positive: Other (awake, alert, answered questions appropriately.) Assessment /Plan Plan/VTE VTE Prophylaxis Ordered?: Yes VTE Exclusion Pharmacological: Thrombocytopenia Plan Dehydration secondary to chemotherapy associated diarrhea and poor oral intakee The poor oral intake is likely related to painful swallowing related to chemotherapy, and consequent mucousitis Oral thrush on exam cannot rule out oropharyngeal/esophageal candidiasis. Patient did not wish to pursue EGD wanted to proceed with empiric treatment with Diflucan--he has completed a 7 day trial Continue Magic mouthwash, GI cocktail PICC Line placed on 11/29/18--TPN started on 11/30, patient/family agreeable to feeding tube Oncologist, Dr. Wray who agrees with the same. Case discussed with Dr. Bland who will tentatively plan to take the patient next week for feeding tube placement Pancytopenia 2/2 Chemotherapy Leukopenia, Anemia improved Heme/Onc on board Oral thrush s/p Diflucan trial Generalized weakness: PT/OT on board for functional optimization Hypertension Continue metoprolol with holding parameters Hx of Squamos Cell Ca of the RUL, Left Paratracheal Area, and RLL Nodue Hematology/Oncology on board DVT prophylaxis: SCDs Dispo: patient started on TPN 11/30, will have feeding tube placed next week by general surgery. VS, I&O, 24H, Fishbone Vital Signs/I&O Vital Signs Date Time Temp Pulse Resp B/P (MAP) Pulse Ox O2 Delivery O2 Flow Rate FiO2 12/01/18 09:30 97.8 97 17 106/68 (81) 96 I&O- Last 24 Hours up to 6 AM 12/01/18 06:00 Intake Total 1740 ml Output Total 875 ml Balance 865 ml Laboratory Data 24H LABS Laboratory Tests 2 12/01/18 00:16: Bedside Glucose (Misc Panel) 149H 12/01/18 05:55: Nucleated Red Blood Cells % (auto) 0.2H, Anion Gap 5L, Glomerular Filtration Rate > 60.0, Blood Urea Nitrogen 10#, Creatinine 0.84, Sodium Level 132L, Potassium Level 4.0, Chloride Level 100, Carbon Dioxide Level 27, Calcium Level 7.3L, Magnesium Level 1.9 12/01/18 05:59: Bedside Glucose (Misc Panel) 157H 12/01/18 11:49: Bedside Glucose (Misc Panel) 150H CBC/BMP Laboratory Tests 12/01/18 05:55 Red Blood Count 2.98 L, Mean Corpuscular Volume 90.6, Mean Corpuscular Hemoglobin 30.2, Mean Corpuscular Hemoglobin Concent 33.3, Red Cell Distribution Width 17.2 H, Calcium Level 7.3 L Microbiology Microbiology 11/28/18 Blood Culture - Preliminary, Resulted No Growth after 72 hours. All specime... 11/28/18 Blood Culture - Preliminary, Resulted No Growth after 72 hours. All specime... 11/22/18 Blood Culture - Final, Complete NO GROWTH AFTER 5 DAYS 11/22/18 Blood Culture - Final, Complete NO GROWTH AFTER 5 DAYS NAI POZO MD Dec 01, 2018 14:20
[2018-12-01 15:16] VITALS: BP 107/70
[2018-12-01] MEDS: MORPHINE 4 MG/ML 1ML VIAL/SYRINGE (J2270) IV PRN (17:47)
[2018-12-01] MEDS ORDERED: AMINO AC/ELECTROLYTE/DEX/CALC 2,000 ML IV SCH (18:00)
[2018-12-01] MEDS ORDERED: FAT EMULSION IV 20% 500 ML IV SCH (18:00)
[2018-12-01] MEDS ORDERED: HumaLOG INSULIN (NovoLOG) PER UNIT SC SCH (18:00)
[2018-12-01 22:00] VITALS: BP 90/51
[2018-12-02 06:00] VITALS: BP 115/63
[2018-12-02] MEDS: SODIUM CHLORIDE 0.9% INJ 10 ML SYR IV SCH ×2 (06:17→18:00)
[2018-12-02] MEDS: FAMOTIDINE IV BAG 20 MG in APPROPRIATE DILUENT 1 EA IV SCH ×2 (06:17→17:30)
[2018-12-02 06:29] LABS: HEMATOCRIT 27.4 % (42.0-52.0); HEMOGLOBIN 9.1 g/dl (13.5-17.5); MEAN CORPUSCULAR HEMOGLOBIN 30.3 pg (27.0-33.0); MEAN CORPUSCULAR HGB CONC 33.2 g/dl (32.0-36.5); MEAN CORPUSCULAR VOLUME 91.3 fl (80.0-96.0); WHITE BLOOD COUNT 7.3 10^3/uL (4.0-10.0)
[2018-12-02 06:32] LABS: PLATELET COUNT, AUTOMATED 55 10^3/uL (150-450)
[2018-12-02 06:47] LABS: BLOOD UREA NITROGEN 15 MG/DL (7-18); CALCIUM LEVEL 7.7 MG/DL (8.8-10.2); CARBON DIOXIDE LEVEL 27 MEQ/L (21-32); CHLORIDE LEVEL 101 MEQ/L (98-107); CREATININE FOR GFR 0.88 MG/DL (0.70-1.30); GLOMERULAR FILTRATION RATE > 60.0 (>42); GLUCOSE, FASTING 126 MG/DL (70-100); MAGNESIUM LEVEL 1.6 MG/DL (1.8-2.4); POTASSIUM SERUM 3.6 MEQ/L (3.5-5.1); SODIUM LEVEL 135 MEQ/L (136-145)
[2018-12-02] MEDS: SUCRALFATE SUSP 1GM/10ML UD PO SCH ×4 (07:30→20:00)
[2018-12-02] MEDS: METOPROLOL TART 12.5 MG PER 1/2 TAB PO SCH ×2 (09:00→20:00)
[2018-12-02] MEDS: NYSTATIN 500,000 U/5 ML SUSP UDC SS SCH ×4 (09:00→20:00)
[2018-12-02] MEDS: GI COCKTAIL 50ML BTL(HYOSCYAMINE/MAALOX/LIDOCAINE VISCOUS)(1:3:1) PO SCH ×4 (09:00→20:00)
[2018-12-02] MEDS ORDERED: LIDOCAINE VISCOUS 2% SOLN 15ML UDC SSP PRN (10:00)
[2018-12-02 14:00] VITALS: BP 125/59
--- NOTE | 2018-12-02 14:54 | IPNPDOC ---
Subjective Date Seen The patient was seen on 12/02/18. Subjective Chief Complaint/HPI Patient seen and examined at bedside. Reports that he continues to have pain in his mouth from the sores. Otherwise does not offer any other acute complains. Objective Physical Examination General Exam: Positive: Alert, Cooperative, No Acute Distress ENT Exam: Positive: Other ENT (Superficial ulceration over the tongue. Whitish patches over tongue, changes consistent with mucousitis) Chest Exam: Positive: Clear to auscultation, Normal air movement; Negative: Rales, Rhonchi, Wheezing Heart Exam: Positive: Rate Normal, Normal S1, Normal S2 Abdomen Exam: Positive: Soft; Negative: Tenderness Extremity Exam: Negative: Tenderness Neuro Exam: Positive: Other (awake, alert, answered questions appropriately.) Psych Exam: Positive: Oriented x 3 A-FIB/CHADSVASC A-FIB History Current/History of A-Fib/PAF?: No Assessment /Plan Plan/VTE VTE Prophylaxis Ordered?: Yes VTE Exclusion Pharmacological: Thrombocytopenia Plan Dehydration secondary to chemotherapy associated diarrhea and poor oral intakee The poor oral intake is likely related to painful swallowing related to chemotherapy, and consequent mucositis Oral thrush on exam cannot rule out oropharyngeal/esophageal candidiasis. Patient did not wish to pursue EGD wanted to proceed with empiric treatment with Diflucan--he has completed a 7 day trial Continue Magic mouthwash, GI cocktail, benzocaine added PICC Line placed on 11/29/18--TPN started on 11/30, patient/family agreeable to feeding tube Oncologist, Dr. Wray who agrees with the same. Case discussed with Dr. Bland who will tentatively plan to take the patient later this week for feeding tube placement Pancytopenia 2/2 Chemotherapy Leukopenia, Anemia improved Heme/Onc on board Oral thrush s/p Diflucan trial Generalized weakness: PT/OT on board for functional optimization Hypertension Continue metoprolol with holding parameters Hx of Squamos Cell Ca of the RUL, Left Paratracheal Area, and RLL Nodue Hematology/Oncology on board DVT prophylaxis: SCDs Dispo: patient started on TPN 11/30, will have feeding tube placed later this week by general surgery. VS, I&O, 24H, Fishbone Vital Signs/I&O Vital Signs Date Time Temp Pulse Resp B/P (MAP) Pulse Ox O2 Delivery O2 Flow Rate FiO2 12/02/18 06:00 97.2 111 18 115/63 (80) 94 I&O- Last 24 Hours up to 6 AM 12/02/18 06:00 Intake Total 1360 ml Output Total 1125 ml Balance 235 ml Laboratory Data 24H LABS Laboratory Tests 2 12/01/18 17:36: Bedside Glucose (Misc Panel) 151H 12/01/18 23:52: Bedside Glucose (Misc Panel) 133H 12/02/18 05:59: Nucleated Red Blood Cells % (auto) 0.3H, Immature Platelet Fraction 6.6, Anion Gap 7L, Glomerular Filtration Rate > 60.0, Blood Urea Nitrogen 15, Creatinine 0.88, Sodium Level 135L, Potassium Level 3.6, Chloride Level 101, Carbon Dioxide Level 27, Calcium Level 7.7L, Magnesium Level 1.6L 12/02/18 06:15: Bedside Glucose (Misc Panel) 130H 12/02/18 11:42: Bedside Glucose (Misc Panel) 127H CBC/BMP Laboratory Tests 12/02/18 05:59 Red Blood Count 3.00 L, Mean Corpuscular Volume 91.3, Mean Corpuscular Hemoglobin 30.3, Mean Corpuscular Hemoglobin Concent 33.2, Red Cell Distribution Width 17.3 H, Calcium Level 7.7 L Microbiology Microbiology 11/28/18 Blood Culture - Preliminary, Resulted No Growth after 72 hours. All specime... 11/28/18 Blood Culture - Preliminary, Resulted No Growth after 72 hours. All specime... 11/22/18 Blood Culture - Final, Complete NO GROWTH AFTER 5 DAYS 11/22/18 Blood Culture - Final, Complete NO GROWTH AFTER 5 DAYS NAI POZO MD Dec 02, 2018 14:54
[2018-12-02] MEDS: BENZOCAINE 10% 9GM TUBE (ANBESOL) MT SCH ×2 (16:32→20:00)
[2018-12-02] MEDS ORDERED: FAT EMULSION IV 20% 500 ML IV SCH (18:00)
[2018-12-02] MEDS ORDERED: AMINO AC/ELECTROLYTE/DEX/CALC 2,000 ML IV SCH (18:00)
[2018-12-02 22:00] VITALS: BP 131/67
[2018-12-02] MEDS: MORPHINE 4 MG/ML 1ML VIAL/SYRINGE (J2270) IV PRN (23:59)
[2018-12-03] MEDS: SODIUM CHLORIDE 0.9% INJ 10 ML SYR IV PRN
[2018-12-03 06:00] VITALS: BP 132/60
[2018-12-03] MEDS: SODIUM CHLORIDE 0.9% INJ 10 ML SYR IV SCH ×2 (06:09→18:00)
[2018-12-03] MEDS: FAMOTIDINE IV BAG 20 MG in APPROPRIATE DILUENT 1 EA IV SCH ×2 (06:10→18:29)
[2018-12-03 06:44] LABS: HEMATOCRIT 25.6 % (42.0-52.0); HEMOGLOBIN 8.4 g/dl (13.5-17.5); MEAN CORPUSCULAR HEMOGLOBIN 30.3 pg (27.0-33.0); MEAN CORPUSCULAR HGB CONC 32.8 g/dl (32.0-36.5); MEAN CORPUSCULAR VOLUME 92.4 fl (80.0-96.0); PLATELET COUNT, AUTOMATED 59 10^3/uL (150-450); RED BLOOD COUNT 2.77 10^6/uL (4.30-6.10); WHITE BLOOD COUNT 7.6 10^3/uL (4.0-10.0)
[2018-12-03 07:06] LABS: BLOOD UREA NITROGEN 16 MG/DL (7-18); CALCIUM LEVEL 7.4 MG/DL (8.8-10.2); CARBON DIOXIDE LEVEL 27 MEQ/L (21-32); CHLORIDE LEVEL 103 MEQ/L (98-107); CREATININE FOR GFR 0.77 MG/DL (0.70-1.30); GLOMERULAR FILTRATION RATE > 60.0 (>42); GLUCOSE, FASTING 106 MG/DL (70-100); MAGNESIUM LEVEL 1.6 MG/DL (1.8-2.4); POTASSIUM SERUM 3.7 MEQ/L (3.5-5.1); SODIUM LEVEL 135 MEQ/L (136-145)
[2018-12-03] MEDS: SUCRALFATE SUSP 1GM/10ML UD PO SCH ×4 (07:30→20:07)
[2018-12-03] MEDS: BENZOCAINE 10% 9GM TUBE (ANBESOL) MT SCH ×3 (07:31→20:06)
[2018-12-03] MEDS: GI COCKTAIL 50ML BTL(HYOSCYAMINE/MAALOX/LIDOCAINE VISCOUS)(1:3:1) PO SCH ×2 (07:31→11:30)
[2018-12-03] MEDS: METOPROLOL TART 12.5 MG PER 1/2 TAB PO SCH ×2 (07:31→20:07)
--- NOTE | 2018-12-03 07:58 | IPNPDOC ---
Date Seen The patient was seen on 12/03/18. Progress Note SUBJECTIVE: The pATIENT IS currently on TPN . He remains with dysphagia but it is lessened , white patches on the mouth persist. I&O- Last 24 Hours up to 6 AM 12/03/18 06:00 Intake Total 890 ml Output Total 950 ml Balance -60 ml PHYSICAL EXAMINATION: PS 2/4 VITAL SIGNS: Please see below. GENERAL: [NC At ] HEENT: [kit still with an area of erythema on the tip of the tongue some buccal erythema noted ] CARDIOVASCULAR: s1 and s 2 appreciated . RESPIRATORY: decreased BS at the bases no rales ABDOMINAL: [soft flat ] EXTREMITIES: [no edema rashes swelling ] NEUROLOGICAL: [ii- xii cranial nerves intact ] PSYCHOLOGICAL: minimal depression , better today than Monday Current Medications Acetaminophen (Tylenol Suppository) 650 mg Q6HP PRN UT PAIN / FEVER Last admi nistered on 11/29/18at 14:24; Start 11/27/18 at 23:30 Acetaminophen (Tylenol Suspension) 650 mg Q6HP PRN PO PAIN OR FEVER; Start 11/22/18 at 20:45; Stop 11/27/18 at 23:24; Status DC Acetaminophen (Tylenol Tab) 650 mg Q4H PRN PO PAIN OR FEVER; Start 11/22/18 at 19:15; Stop 11/22/18 at 20:45; Status DC Amino Ac/Electrol/ Dextrose/Calcium 2,000 ml @ 50 mls/hr ONCE@1800 IV Last administered on 12/01/18at 18:29; Start 12/01/18 at 18:00; Stop 12/02/18 at 17:59; Status DC Amino Ac/Electrol/ Dextrose/Calcium 2,000 ml @ 50 mls/hr ONCE@1800 IV Last administered on 12/02/18at 18:28; Start 12/02/18 at 18:00; Stop 12/03/18 at 17:59 Benzocaine (Anbesol Gel) TO MOUTH SORES TID MT Last administered on 12/02/18at 16:32; Start 12/02/18 at 16:00 Calcium Gluconate 1000 mg/Dextrose 110 ml @ 110 mls/hr Q1H IV Last administered on 11/24/18at 19:36; Start 11/24/18 at 18:00; Stop 11/24/18 at 19:59; Status DC Calcium Gluconate 1000 mg/Dextrose 110 ml @ 110 mls/hr Q1H IV Last administered on 11/25/18at 10:20; Start 11/25/18 at 09:00; Stop 11/25/18 at 10:59; Status DC Calcium Gluconate 1000 mg/Dextrose 110 ml @ 110 mls/hr Q1H IV Last administered on 11/26/18at 13:27; Start 11/26/18 at 11:00; Stop 11/26/18 at 12:59; Status DC Calcium Gluconate 1000 mg/Dextrose 110 ml @ 110 mls/hr Q1H IV Last ad ministered on 11/27/18at 10:41; Start 11/27/18 at 08:00; Stop 11/27/18 at 09:59; Status DC Famotidine 20 mg/ IV Miscellaneous Supplies 50 ml @ 100 mls/hr Q12H IV Last administered on 11/26/18at 10:07; Start 11/22/18 at 21:00; Stop 11/26/18 at 12:04; Status DC Famotidine 20 mg/ IV Miscellaneous Supplies 50 ml @ 100 mls/hr Q12H IV Last administered on 12/03/18at 06:10; Start 11/26/18 at 18:00 Fat Emulsion Intravenous 500 ml @ 20 mls/hr ONCE@1800 IV Last administered on 11/30/18at 18:05; Start 11/30/18 at 18:00; Stop 12/01/18 at 17:59; Status DC Fat Emulsion Intravenous 500 ml @ 20 mls/hr ONCE@1800 IV Last administered on 12/01/18at 18:30; Start 12/01/18 at 18:00; Stop 12/02/18 at 17:59; Status DC Fat Emulsion Intravenous 500 ml @ 20 mls/hr ONCE@1800 IV Last administered on 12/02/18at 18:28; Start 12/02/18 at 18:00; Stop 12/03/18 at 17:59 Filgrastim (Neupogen) 300 mcg DAILY SC Last administered on 11/29/18at 13:04; Start 11/27/18 at 09:00; Stop 11/30/18 at 07:55; Status DC Finasteride (Proscar) 5 mg DAILY PO ; Start 11/23/18 at 09:00; Stop 11/23/18 at 09:00; Status DC Fluconazole 200 mg/IV Miscellaneous Supplies 100 ml @ 100 mls/hr Q24H IV Last administered on 11/29/18at 13:06; Start 11/23/18 at 13:00; Stop 11/30/18 at 12:59; Status DC Heparin Sodium (Heparin (Flush)) 100 units ASDIRECTED PRN IV SEE LABEL COMMENTS Last administered on 11/29/18at 20:36; Start 11/23/18 at 16:30 Heparin Sodium (Heparin (Flush)) 100 units PICC IV Last administered on 11/30/18at 05:52; Start 11/23/18 at 18:00; Stop 11/30/18 at 20:28; Status DC Heparin Sodium (Heparin (Flush)) 200 units ASDIRECTED PRN IV SEE LABEL COMMENTS Last administered on 12/03/18at 00:00; Start 11/30/18 at 03:00 Heparin Sodium (Heparin (Flush)) 200 units PICC IV Last administered on 12/03/18at 06:09; Start 11/30/18 at 06:00 Home Med (Med Rec Complete!) ASDIRECTED XX ; Start 11/22/18 at 18:15; Stop 11/22/18 at 18:15; Status DC Hyoscyamine/Lido/ Alumin/Mag/Simethi (Gi Cocktail) 50 ml QID PO Last administe red on 11/26/18at 10:07; Start 11/25/18 at 13:00 Insulin Human Lispro (HumaLOG INSULIN) See Protocol Table Q6H SC Last administered on 12/01/18at 12:10; Start 11/30/18 at 18:00; Stop 12/01/18 at 12:01; Status DC Insulin Human Lispro (HumaLOG INSULIN) See Protocol Table Q6H SC ; Start 12/01/18 at 18:00; Stop 12/02/18 at 12:01; Status Cancel Lidocaine HCl (Lidocaine 2% Visc Soln) 5 ml Q4HP PRN SSP DISCOMFORT Last administered on 12/02/18at 11:19; Start 12/02/18 at 10:00; Stop 12/02/18 at 11:34; Status DC Lidocaine/ Diphenhydr/Alum/ Mg/Simeth (Magic Mouthwash) 5ml Q4HP PRN SS DISCOMFORT Last administered on 11/24/18at 10:31; Start 11/22/18 at 19:15 Loperamide HCl (Imodium) 4 mg Q6HP PRN PO Diarrhea; Start 11/22/18 at 19:15; Stop 11/22/18 at 20:42; Status DC Magnesium Sulfate/ Dextrose 1 gm/IV Miscellaneous Supplies 100 ml @ 100 mls/hr Q1H IV Last administered on 11/23/18at 10:50; Start 11/23/18 at 07:30; Stop 11/23/18 at 09:29; Status DC Magnesium Sulfate/ Dextrose 1 gm/IV Miscellaneous Supplies 100 ml @ 100 mls/hr Q1H IV Last administered on 11/25/18at 13:56; Start 11/25/18 at 11:00; Stop 11/25/18 at 13:59; Status DC Magnesium Sulfate/ Dextrose 1 gm/IV Miscellaneous Supplies 100 ml @ 100 mls/hr Q1H IV Last administered on 11/26/18at 13:27; Start 11/26/18 at 08:00; Stop at 10:59; Status DC Magnesium Sulfate/ Dextrose 1 gm/IV Miscellaneous Supplies 100 ml @ 100 mls/hr Q1H IV Last administered on 11/27/18at 13:55; Start 11/27/18 at 10:00; Stop 11/27/18 at 13:59; Status DC Magnesium Sulfate/ Dextrose 1 gm/IV Miscellaneous Supplies 100 ml @ 100 mls/hr Q1H IV Last administered on 11/30/18at 13:21; Start 11/30/18 at 09:00; Stop 11/30/18 at 11:59; Status DC Metoprolol Succinate (TopROL XL) 25 mg QHS PO ; Start 11/22/18 at 21:00; Stop 11/22/18 at 21:00; Status DC Metoprolol Tartrate (Lopressor) 6.25 mg BID PO ; Start 11/25/18 at 09:00 Metoprolol Tartrate (Lopressor) 12.5 mg BID PO Last administered on 11/23/18at 09:26; Start 11/22/18 at 21:00; Stop 11/25/18 at 07:47; Status DC Morphine Sulfate (Morphine Sulfate Inj) 2 mg Q4HP PRN IV PAIN Last administered on 12/02/18at 23:59; Start 11/28/18 at 09:30 Multivitamins 10 ml/Chromium/ Copper/Manganese/ Seleni/Zn 1 ml/ Amino Ac/Electrol/ Dextrose/Calcium 2,011 ml @ 50 mls/hr ONCE@1800 IV Last administ ered on 11/30/18at 18:05; Start 11/30/18 at 18:00; Stop 12/01/18 at 17:59; Status DC Nystatin (Mycostatin) 5 ml QID SS Last administered on 12/01/18at 09:00; Start 11/23/18 at 09:00; Stop 12/03/18 at 08:59 Ondansetron HCl (ZOFRAN INJection) 4 mg Q6HP PRN IV NAUSEA OR VOMITING; Start 11/22/18 at 19:15 Potassium Chloride/Sodium Chloride 1,000 ml @ 150 mls/hr Q6H40M IV Last administered on 11/23/18at 06:18; Start 11/22/18 at 19:15; Stop 11/23/18 at 07:44; Status DC Potassium Chloride 1,000 ml @ 75 mls/hr [id number] IV Last administered on 11/30/18at 01:12; Start 11/23/18 at 08:00; Stop 11/30/18 at 18:00; Status DC Sodium Chloride 1,000 ml @ 15 mls/hr Q24H IV Last administered on 11/26/18at 1 2:32; Start 11/26/18 at 12:00; Stop 11/27/18 at 11:49; Status DC Sodium Chloride 1,000 ml @ 15 mls/hr Q24H IV Last administered on 11/29/18at 11:00; Start 11/29/18 at 11:00; Stop 11/30/18 at 08:57; Status DC Sodium Chloride (Saline Lock Flush) 10 ML PICC IV Last administered on 11/30/18at 05:52; Start 11/23/18 at 18:00; Stop 11/30/18 at 20:28; Status DC Sodium Chloride (Saline Lock Flush) 10 ml ASDIRECTED PRN IV SEE LABEL COMMENTS Last administered on 12/03/18at 00:00; Start 11/30/18 at 03:00 Sodium Chloride (Saline Lock Flush) 10 ml PICC IV Last administered on 12/03/18at 06:09; Start 11/30/18 at 06:00 Sodium Chloride (Saline Lock Flush) 10ML ASDIRECTED PRN IV SEE LABEL COMMENTS Last administered on 11/29/18at 20:37; Start 11/23/18 at 16:30; Stop 11/30/18 at 20:29; Status DC Sucralfate (Carafate Suspension) 1 gm ACHS PO Last administered on 11/25/18at 11:40; Start 11/22/18 at 21:00 Laboratory Tests 12/02/18 05:59 Red Blood Count 3.00 L, Mean Corpuscular Volume 91.3, Mean Corpuscular Hemoglobin 30.3, Mean Corpuscular Hemoglobin Concent 33.2, Red Cell Distribution Width 17.3 H, Calcium Level 7.7 L 12/03/18 06:25 Red Blood Count 2.77 L, Mean Corpuscular Volume 92.4, Mean Corpuscular Hemoglobin 30.3, Mean Corpuscular Hemoglobin Concent 32.8, Red Cell Distribution Width 17.4 H, Calcium Level 7.4 L ASSESSMENT AND PLAN: This is a -year-old [RACE] [GENDER] with . 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 : . 3. : . DISPOSITION: . GTT placemetn tomorrow continue TPN until GTT PEG placed hold all chemo XRT until complete resolution of esophagitis OOB in chair as tolerated Current p[latelet count ok for PEG placement ( over 50 k ) VTE prophylaxis being held due to surgery for 12/04/18 A-FIB/CHADSVASC A-FIB History Current/History of A-Fib/PAF?: No Current Oral Anticoagulant The: No Treatment Treatment ordered: NONE Reason Anticoagulant not given: Other Other reason anticoagulant not: surgery planned for 12/04 and platlets 59,000 VS, I&O, 24H, Fishbone Vital Signs/I&O Vital Signs Date Time Temp Pulse Resp B/P (MAP) Pulse Ox O2 Delivery O2 Flow Rate FiO2 12/03/18 06:00 96.9 92 18 132/60 (84) 97 I&O- Last 24 Hours up to 6 AM 12/03/18 06:00 Intake Total 890 ml Output Total 950 ml Balance -60 ml Laboratory Data 24H LABS Laboratory Tests 2 12/02/18 11:42: Bedside Glucose (Misc Panel) 127H 12/02/18 17:21: Bedside Glucose (Misc Panel) 133H 12/03/18 06:25: Nucleated Red Blood Cells % (auto) 0.5H, Immature Platelet Fraction 6.4, Anion Gap 5L, Glomerular Filtration Rate > 60.0, Blood Urea Nitrogen 16, Creatinine 0.77, Sodium Level 135L, Potassium Level 3.7, Chloride Level 103, Carbon Dioxide Level 27, Calcium Level 7.4L, Magnesium Level 1.6L CBC/BMP Laboratory Tests 12/03/18 06:25 Red Blood Count 2.77 L, Mean Corpuscular Volume 92.4, Mean Corpuscular Hemoglobin 30.3, Mean Corpuscular Hemoglobin Concent 32.8, Red Cell Distribution Width 17.4 H, Calcium Level 7.4 L Microbiology Microbiology 11/28/18 Blood Culture - Preliminary, Resulted No Growth after 72 hours. All specime... 11/28/18 Blood Culture - Preliminary, Resulted No Growth after 72 hours. All specime... Danielle Wray MD Dec 03, 2018 07:55
[2018-12-03 14:00] VITALS: BP 107/64
--- NOTE | 2018-12-03 15:57 | IPNPDOC ---
Subjective Date Seen The patient was seen on 12/03/18. Subjective Chief Complaint/HPI Patient seen and examined at bedside. He is tentatively scheduled for feeding tube placement as per general surgery. States that the pain related to his mucositis and esophagitis is slowly improving, but he still has not been able to tolerate much by mouth. Objective Physical Examination General Exam: Positive: Alert, Cooperative, No Acute Distress ENT Exam: Positive: Other ENT (Superficial ulceration over the tongue. Whitish patches over tongue, changes consistent with mucousitis) Chest Exam: Positive: Clear to auscultation, Normal air movement; Negative: Rales, Rhonchi, Wheezing Heart Exam: Positive: Rate Normal, Normal S1, Normal S2 Abdomen Exam: Positive: Soft; Negative: Tenderness Extremity Exam: Negative: Tenderness Neuro Exam: Positive: Other (awake, alert, answered questions appropriately.) Psych Exam: Positive: Oriented x 3 A-FIB/CHADSVASC A-FIB History Current/History of A-Fib/PAF?: No Assessment /Plan Plan/VTE VTE Prophylaxis Ordered?: Yes VTE Exclusion Pharmacological: Thrombocytopenia Plan Dehydration secondary to chemotherapy associated diarrhea and poor oral intakee The poor oral intake is likely related to painful swallowing related to chemotherapy, and consequent mucositis Continue Magic mouthwash, GI cocktail, benzocaine PICC Line placed on 11/29/18--TPN started on 11/30, patient/family agreeable to feeding tube Oncologist, Dr. Wray who agrees with the same. Case discussed with Dr. Bland who will tentatively plan to take the patient for feeding tube placement Pancytopenia 2/2 Chemotherapy Leukopenia, Anemia improved Heme/Onc on board Oral thrush s/p Diflucan trial Generalized weakness: PT/OT on board for functional optimization Hypertension Continue metoprolol with holding parameters Hx of Squamos Cell Ca of the RUL, Left Paratracheal Area, and RLL Nodue Hematology/Oncology on board DVT prophylaxis: SCDs Dispo: patient started on TPN 11/30, will have feeding tube placed this week by general surgery. VS, I&O, 24H, Fishbone Vital Signs/I&O Vital Signs Date Time Temp Pulse Resp B/P (MAP) Pulse Ox O2 Delivery O2 Flow Rate FiO2 12/03/18 14:00 98.1 109 20 107/64 (78) 99 I&O- Last 24 Hours up to 6 AM 12/03/18 06:00 Intake Total 890 ml Output Total 950 ml Balance -60 ml Laboratory Data 24H LABS Laboratory Tests 2 12/02/18 17:21: Bedside Glucose (Misc Panel) 133H 12/03/18 06:25: Nucleated Red Blood Cells % (auto) 0.5H, Immature Platelet Fraction 6.4, Anion Gap 5L, Glomerular Filtration Rate > 60.0, Blood Urea Nitrogen 16, Creatinine 0.77, Sodium Level 135L, Potassium Level 3.7, Chloride Level 103, Carbon Dioxide Level 27, Calcium Level 7.4L, Magnesium Level 1.6L CBC/BMP Laboratory Tests 12/03/18 06:25 Red Blood Count 2.77 L, Mean Corpuscular Volume 92.4, Mean Corpuscular Hemoglobin 30.3, Mean Corpuscular Hemoglobin Concent 32.8, Red Cell Distribution Width 17.4 H, Calcium Level 7.4 L Microbiology Microbiology 11/28/18 Blood Culture - Final, Complete NO GROWTH AFTER 5 DAYS 11/28/18 Blood Culture - Final, Complete NO GROWTH AFTER 5 DAYS NAI POZO MD Dec 03, 2018 15:57
[2018-12-03] MEDS ORDERED: MULTIVITAMIN -ADULT INJECTION 10 ML, CR/CU/SE/MN/ZN INJ 1 ML in AMINO AC/ELECTROLYTE/DE... IV SCH (18:00)
[2018-12-03] MEDS ORDERED: FAT EMULSION IV 20% 500 ML IV SCH (18:00)
[2018-12-03 22:00] VITALS: BP 109/56
[2018-12-04] MEDS: MORPHINE 4 MG/ML 1ML VIAL/SYRINGE (J2270) IV PRN (01:56)
[2018-12-04] MEDS: FAMOTIDINE IV BAG 20 MG in APPROPRIATE DILUENT 1 EA IV SCH ×2 (05:40→18:31)
[2018-12-04 05:44] LABS: BLOOD UREA NITROGEN 16 MG/DL (7-18); CALCIUM LEVEL 7.4 MG/DL (8.8-10.2); CARBON DIOXIDE LEVEL 26 MEQ/L (21-32); CHLORIDE LEVEL 102 MEQ/L (98-107); CREATININE FOR GFR 0.73 MG/DL (0.70-1.30); GLOMERULAR FILTRATION RATE > 60.0 (>42); GLUCOSE, FASTING 108 MG/DL (70-100); MAGNESIUM LEVEL 1.6 MG/DL (1.8-2.4); POTASSIUM SERUM 3.7 MEQ/L (3.5-5.1); SODIUM LEVEL 135 MEQ/L (136-145)
[2018-12-04 05:56] LABS: HEMATOCRIT 25.2 % (42.0-52.0); HEMOGLOBIN 8.2 g/dl (13.5-17.5); MEAN CORPUSCULAR HEMOGLOBIN 29.8 pg (27.0-33.0); MEAN CORPUSCULAR HGB CONC 32.5 g/dl (32.0-36.5); MEAN CORPUSCULAR VOLUME 91.6 fl (80.0-96.0); RED BLOOD COUNT 2.75 10^6/uL (4.30-6.10)
[2018-12-04 05:57] LABS: PLATELET COUNT, AUTOMATED 63 10^3/uL (150-450)
[2018-12-04 06:00] VITALS: BP 119/59
[2018-12-04] MEDS: SODIUM CHLORIDE 0.9% INJ 10 ML SYR IV SCH ×2 (06:44→18:29)
[2018-12-04] MEDS: METOPROLOL TART 12.5 MG PER 1/2 TAB PO SCH ×2 (08:23→21:00)
[2018-12-04] MEDS: SUCRALFATE SUSP 1GM/10ML UD PO SCH ×4 (08:23→21:00)
[2018-12-04] MEDS: MAG SULF 1GM/100ML (MAG RUN) 1 GM in APPROPRIATE DILUENT 1 EA IV SCH ×2 (08:42→09:42)
--- NOTE | 2018-12-04 13:16 | IPNPDOC ---
Subjective Date Seen The patient was seen on 12/04/18. Subjective Chief Complaint/HPI Patient seen and examined at bedside. No acute overnight events noted. Objective Physical Examination General Exam: Positive: Alert, Cooperative, No Acute Distress ENT Exam: Positive: Other ENT (Superficial ulceration over the tongue. Whitish patches over tongue, changes consistent with mucousitis) Chest Exam: Positive: Clear to auscultation, Normal air movement; Negative: Rales, Rhonchi, Wheezing Heart Exam: Positive: Rate Normal, Normal S1, Normal S2 Abdomen Exam: Positive: Soft; Negative: Tenderness Extremity Exam: Negative: Tenderness Neuro Exam: Positive: Other (awake, alert, answered questions appropriately.) Psych Exam: Positive: Oriented x 3 A-FIB/CHADSVASC A-FIB History Current/History of A-Fib/PAF?: No Assessment /Plan Plan/VTE VTE Prophylaxis Ordered?: Yes VTE Exclusion Pharmacological: Thrombocytopenia Plan Dehydration secondary to chemotherapy associated diarrhea and poor oral intakee The poor oral intake is likely related to painful swallowing related to chemotherapy, and consequent mucositis Continue Magic mouthwash, GI cocktail, benzocaine PICC Line placed on 11/29/18--TPN started on 11/30, patient/family agreeable to feeding tube Oncologist, Dr. Wray who agrees with the same. The patient is supposed to go for a feeding tube placement at some point this week with general surgery. We will reach out to Gen Surg to coordinate this. Pancytopenia 2/2 Chemotherapy Leukopenia, Anemia improved Heme/Onc on board Oral thrush s/p Diflucan trial Generalized weakness: PT/OT on board for functional optimization Hypertension Continue metoprolol with holding parameters Hx of Squamos Cell Ca of the RUL, Left Paratracheal Area, and RLL Nodue Hematology/Oncology on board DVT prophylaxis: SCDs Dispo: patient started on TPN 11/30, will have feeding tube placed this week by general surgery. VS, I&O, 24H, Fishbone Vital Signs/I&O Vital Signs Date Time Temp Pulse Resp B/P (MAP) Pulse Ox O2 Delivery O2 Flow Rate FiO2 12/04/18 06:00 99.1 90 18 119/59 (79) 99 I&O- Last 24 Hours up to 6 AM0 12/04/18 06:00 Intake Total 1780 ml Output Total 1425 ml Balance 355 ml Laboratory Data 24H LABS Laboratory Tests 2 12/03/18 17:06: Bedside Glucose (Misc Panel) 129H 12/04/18 00:04: Bedside Glucose (Misc Panel) 123H 12/04/18 05:02: Anion Gap 7L, Glomerular Filtration Rate > 60.0, Blood Urea Nitrogen 16, Creatinine 0.73, Sodium Level 135L, Potassium Level 3.7, Chloride Level 102, Carbon Dioxide Level 26, Calcium Level 7.4L, Magnesium Level 1.6L 12/04/18 05:35: Nucleated Red Blood Cells % (auto) 0.0 12/04/18 05:47: Bedside Glucose (Misc Panel) 112H CBC/BMP Laboratory Tests 12/04/18 05:02 Calcium Level 7.4 L 12/04/18 05:35 Red Blood Count 2.75 L, Mean Corpuscular Volume 91.6, Mean Corpuscular Hemoglobin 29.8, Mean Corpuscular Hemoglobin Concent 32.5, Red Cell Distribution Width 17.8 H Microbiology Microbiology 11/28/18 Blood Culture - Final, Complete NO GROWTH AFTER 5 DAYS 11/28/18 Blood Culture - Final, Complete NO GROWTH AFTER 5 DAYS NAI POZO MD Dec 04, 2018 13:16
[2018-12-04 14:00] VITALS: BP 120/60
[2018-12-04] MEDS ORDERED: FAT EMULSION IV 20% 500 ML IV SCH (18:00)
[2018-12-04] MEDS ORDERED: AMINO AC/ELECTROLYTE/DEX/CALC 2,000 ML IV SCH (18:00)
[2018-12-04 22:00] VITALS: BP 122/72
[2018-12-05] MEDS: MORPHINE 4 MG/ML 1ML VIAL/SYRINGE (J2270) IV PRN (03:45)
[2018-12-05] MEDS: SODIUM CHLORIDE 0.9% INJ 10 ML SYR IV PRN (03:46)
[2018-12-05 06:00] VITALS: BP 111/57
[2018-12-05] MEDS: FAMOTIDINE IV BAG 20 MG in APPROPRIATE DILUENT 1 EA IV SCH ×2 (06:21→17:50)
[2018-12-05 06:28] LABS: HEMATOCRIT 25.1 % (42.0-52.0); HEMOGLOBIN 8.3 g/dl (13.5-17.5); MEAN CORPUSCULAR HEMOGLOBIN 30.4 pg (27.0-33.0); MEAN CORPUSCULAR HGB CONC 33.1 g/dl (32.0-36.5); MEAN CORPUSCULAR VOLUME 91.9 fl (80.0-96.0); RED BLOOD COUNT 2.73 10^6/uL (4.30-6.10); WHITE BLOOD COUNT 7.8 10^3/uL (4.0-10.0)
[2018-12-05 06:30] LABS: PLATELET COUNT, AUTOMATED 77 10^3/uL (150-450)
[2018-12-05 06:51] LABS: BLOOD UREA NITROGEN 16 MG/DL (7-18); CALCIUM LEVEL 7.5 MG/DL (8.8-10.2); CARBON DIOXIDE LEVEL 25 MEQ/L (21-32); CHLORIDE LEVEL 101 MEQ/L (98-107); CREATININE FOR GFR 0.77 MG/DL (0.70-1.30); GLOMERULAR FILTRATION RATE > 60.0 (>42); GLUCOSE, FASTING 129 MG/DL (70-100); MAGNESIUM LEVEL 1.8 MG/DL (1.8-2.4); POTASSIUM SERUM 3.6 MEQ/L (3.5-5.1); SODIUM LEVEL 133 MEQ/L (136-145)
[2018-12-05] MEDS: SODIUM CHLORIDE 0.9% INJ 10 ML SYR IV SCH ×2 (07:00→17:51)
[2018-12-05] MEDS: SUCRALFATE SUSP 1GM/10ML UD PO SCH ×4 (07:30→21:00)
[2018-12-05] MEDS: METOPROLOL TART 12.5 MG PER 1/2 TAB PO SCH ×2 (07:44→21:00)
--- NOTE | 2018-12-05 09:17 | IPNPDOC ---
Date Seen The patient was seen on 12/05/18. Progress Note SUBJECTIVE: Patient is a feeling better , less pain on swallowing since admission no diarrhea apetite still poor , has TPN ongoing PEG to be placed today OBJECTIVE PHYSICAL EXAMINATION: VITAL SIGNS: Please see below. GENERAL: frail color improved but still pale noted HEENT: [NC AT [place] sclera white Tia still has soem erythema in the buccal mucosa no ulcerations noted no white patches noted ] CARDIOVASCULAR: s1 s2 appreciated . RESPIRATORY: [clear to A&P ]. ABDOMINAL: [ soft no HSM ] EXTREMITIES: no edema noted NEUROLOGICAL: intact ] PSYCHOLOGICAL: [ some reactive depression improving with pain relief ] LABORATORY DATA, IMAGING STUDIES, MICROBIOLOGY: Please see below. Current Medications Acetaminophen (Tylenol Suppository) 650 mg Q6HP PRN [place] PAIN / FEVER Last administered on 11/29/18at 14:24; Start 11/27/18 at 23:30 Acetaminophen (Tylenol Suspension) 650 mg Q6HP PRN PO PAIN OR FEVER; Start 11/22/18 at 20:45; Stop 11/27/18 at 23:24; Status DC Acetaminophen (Tylenol Tab) 650 mg Q4H PRN PO PAIN OR FEVER; Start 11/22/18 at 19:15; Stop 11/22/18 at 20:45; Status DC Amino Ac/Electrol/ Dextrose/Calcium 2,000 ml @ 50 mls/hr ONCE@1800 IV Last administered on 12/01/18at 18:29; Start 12/01/18 at 18:00; Stop 12/02/18 at 17:59; Status DC Amino Ac/Electrol/ Dextrose/Calcium 2,000 ml @ 50 mls/hr ONCE@1800 IV Last administered on 12/02/18at 18:28; Start 12/02/18 at 18:00; Stop 12/03/18 at 17:59; Status DC Amino Ac/Electrol/ Dextrose/Calcium 2,000 ml @ 50 mls/hr ONCE@1800 IV Last administered on 12/04/18at 18:30; Start 12/04/18 at 18:00; Stop 12/05/18 at 17:59 Benzocaine (Anbesol Gel) TO MOUTH SORES TID MT Last administered on 12/02/18at 16:32; Start 12/02/18 at 16:00; Stop 12/04/18 at 07:59; Status DC Calcium Gluconate 1000 mg/Dextrose 110 ml @ 110 mls/hr Q1H IV Last admin istered on 11/24/18at 19:36; Start 11/24/18 at 18:00; Stop 11/24/18 at 19:59; Status DC Calcium Gluconate 1000 mg/Dextrose 110 ml @ 110 mls/hr Q1H IV Last administered on 11/25/18at 10:20; Start 11/25/18 at 09:00; Stop 11/25/18 at 10:59; Status DC Calcium Gluconate 1000 mg/Dextrose 110 ml @ 110 mls/hr Q1H IV Last administered on 11/26/18at 13:27; Start 11/26/18 at 11:00; Stop 11/26/18 at 12:59; Status DC Calcium Gluconate 1000 mg/Dextrose 110 ml @ 110 mls/hr Q1H IV Last administered on 11/27/18at 10:41; Start 11/27/18 at 08:00; Stop 11/27/18 at 09:59; Status DC Famotidine 20 mg/ IV Miscellaneous Supplies 50 ml @ 100 mls/hr Q12H IV Last administered on 11/26/18at 10:07; Start 11/22/18 at 21:00; Stop 11/26/18 at 12:04; Status DC Famotidine 20 mg/ IV Miscellaneous Supplies 50 ml @ 100 mls/hr Q12H IV Last administered on 12/05/18at 06:21; Start 11/26/18 at 18:00 Fat Emulsion Intravenous 500 ml @ 20 mls/hr ONCE@1800 IV Last administered on 11/30/18at 18:05; Start 11/30/18 at 18:00; Stop 12/01/18 at 17:59; Status DC Fat Emulsion Intravenous 500 ml @ 20 mls/hr ONCE@1800 IV Last administered on 12/01/18at 18:30; Start 12/01/18 at 18:00; Stop 12/02/18 at 17:59; Status DC Fat Emulsion Intravenous 500 ml @ 20 mls/hr ONCE@1800 IV Last administered on 12/02/18at 18:28; Start 12/02/18 at 18:00; Stop 12/03/18 at 17:59; Status DC Fat Emulsion Intravenous 500 ml @ 20 mls/hr ONCE@1800 IV Last administered on 12/03/18 18:27; Start 12/03/18 at 18:00; Stop 12/04/18 at 17:59; Status DC Fat Emulsion Intravenous 500 ml @ 20 mls/hr ONCE@1800 IV Last administered on 12/04/18 18:30; Start 12/04/18 at 18:00; Stop 12/05/18 at 17:59 Filgrastim (Neupogen) 300 mcg DAILY SC Last administered on 11/29/18 13:04; Start 11/27/18 at 09:00; Stop 11/30/18 at 07:55; Status DC Finasteride (Proscar) 5 mg DAILY PO ; Start 11/23/18 at 09:00; Stop 11/23/18 at 09:00; Status DC Fluconazole 200 mg/IV Miscellaneous Supplies 100 ml @ 100 mls/hr Q24H IV Last administered on 11/29/18 13:06; Start 11/23/18 at 13:00; Stop 11/30/18 at 12:59; Status DC Heparin Sodium (Heparin (Flush)) 100 units ASDIRECTED PRN IV SEE LABEL COMMENTS Last administered on 11/29/18at 20:36; Start 11/23/18 at 16:30 Heparin Sodium (Heparin (Flush)) 100 units PICC IV Last administered on 11/30/18 05:52; Start 11/23/18 at 18:00; Stop 11/30/18 at 20:28; Status DC Heparin Sodium (Heparin (Flush)) 200 units ASDIRECTED PRN IV SEE LABEL COMMENTS Last administered on 12/05/18at 03:46; Start 11/30/18 at 03:00 Heparin Sodium (Heparin (Flush)) 200 units PICC IV Last administered on 12/05/18at 06:59; Start 11/30/18 at 06:00 Home Med (Med Rec Complete!) ASDIRECTED XX ; Start 11/22/18 at 18:15; Stop 11/22/18 at 18:15; Status DC Hyoscyamine/Lido/ Alumin/Mag/Simethi (Gi Cocktail) 50 ml QID PO Last administered on 11/26/18at 10:07; Start 11/25/18 at 13:00; Stop 12/03/18 at 11:45; Status DC Insulin Human Lispro (HumaLOG INSULIN) See Protocol Table Q6H SC Last administered on 12/01/18at 12:10; Start 11/30/18 at 18:00; Stop 12/01/18 at 12:01; Status DC Insulin Human Lispro (HumaLOG INSULIN) See Protocol Table Q6H SC ; Start 12/01/18 at 18:00; Stop 12/02/18 at 12:01; Status Cancel Lidocaine HCl (Lidocaine 2% Visc Soln) 5 ml Q4HP PRN SSP DISCOMFORT Last administered on 12/02/18at 11:19; Start 12/02/18 at 10:00; Stop 12/02/18 at 11:34; Status DC Lidocaine/ Diphenhydr/Alum/ Mg/Simeth (Magic Mouthwash) 5ml Q4HP PRN SS DISCOMFORT Last administered on 11/24/18at 10:31; Start 11/22/18 at 19:15 Loperamide HCl (Imodium) 4 mg Q6HP PRN PO Diarrhea; Start 11/22/18 at 19:15; Stop 11/22/18 at 20:42; Status DC Magnesium Sulfate/ Dextrose 1 gm/IV Miscellaneous Supplies 100 ml @ 100 mls/hr Q1H IV Last administered on 11/23/18at 10:50; Start 11/23/18 at 07:30; Stop 11/23/18 at 09:29; Status DC Magnesium Sulfate/ Dextrose 1 gm/IV Miscellaneous Supplies 100 ml @ 100 mls/hr Q1H IV Last administered on 11/25/18at 13:56; Start 11/25/18 at 11:00; Stop 11/25/18 at 13:59; Status DC Magnesium Sulfate/ Dextrose 1 gm/IV Miscellaneous Supplies 100 ml @ 100 mls/hr Q1H IV Last administered on 11/26/18at 13:27; Start 11/26/18 at 08:00; Stop 11/26/18 at 10:59; Status DC Magnesium Sulfate/ Dextrose 1 gm/IV Miscellaneous Supplies 100 ml @ 100 mls/hr Q1H IV Last administered on 11/27/18at 13:55; Start 11/27/18 at 10:00; Stop 11/27/18 at 13:59; Status DC Magnesium Sulfate/ Dextrose 1 gm/IV Miscellaneous Supplies 100 ml @ 100 mls/hr Q1H IV Last administered on 11/30/18at 13:21; Start 11/30/18 at 09:00; Stop at 11:59; Status DC Magnesium Sulfate/ Dextrose 1 gm/IV Miscellaneous Supplies 100 ml @ 100 mls/hr Q1H IV Last administered on 12/04/18at 09:42; Start 12/04/18 at 08:00; Stop 12/04/18 at 09:59; Status DC Metoprolol Succinate (TopROL XL) 25 mg QHS PO ; Start 11/22/18 at 21:00; Stop 11/22/18 at 21:00; Status DC Metoprolol Tartrate (Lopressor) 6.25 mg BID PO ; Start 11/25/18 at 09:00 Metoprolol Tartrate (Lopressor) 12.5 mg BID PO Last administered on 11/23/18at 09:26; Start 11/22/18 at 21:00; Stop 11/25/18 at 07:47; Status DC Morphine Sulfate (Morphine Sulfate Inj) 2 mg Q4HP PRN IV PAIN Last administered on 12/05/18at 03:45; Start 11/28/18 at 09:30 Multivitamins 10 ml/Chromium/ Copper/Manganese/ Seleni/Zn 1 ml/ Amino Ac/Electrol/ Dextrose/Calcium 2,011 ml @ 50 mls/hr ONCE@1800 IV Last administered on 11/30/18at 18:05; Start 11/30/18 at 18:00; Stop 12/01/18 at 17:59; Status DC Multivitamins 10 ml/Chromium/ Copper/Manganese/ Seleni/Zn 1 ml/ Amino Ac/Electrol/ Dextrose/Calcium 2,011 ml @ 50 mls/hr ONCE@1800 IV Last administered on 12/03/18at 18:26; Start 12/03/18 at 18:00; Stop 12/04/18 at 17:59; Status DC Nystatin (Mycostatin) 5 ml QID SS Last administered on 12/01/18at 09:00; Start 11/23/18 at 09:00; Stop 12/03/18 at 08:59; Status DC Ondansetron HCl (ZOFRAN INJection) 4 mg Q6HP PRN IV NAUSEA OR VOMITING; Start 11/22/18 at 19:15 Potassium Chloride/Sodium Chloride 1,000 ml @ 150 mls/hr Q6H40M IV Last administered on 11/23/18at 06:18; Start 11/22/18 at 19:15; Stop 11/23/18 at 07:44; Status DC Potassium Chloride 1,000 ml @ 75 mls/hr [id number] IV Last administered on 11/30/18at 01:12; Start 11/23/18 at 08:00; Stop 11/30/18 at 18:00; Status DC Sodium Chloride 1,000 ml @ 15 mls/hr Q24H IV Last administered on 11/26/18at 12:32; Start 11/26/18 at 12:00; Stop 11/27/18 at 11:49; Status DC Sodium Chloride 1,000 ml @ 15 mls/hr Q24H IV Last administered on 11/29/18at 11:00; Start 11/29/18 at 11:00; Stop 11/30/18 at 08:57; Status DC Sodium Chloride (Saline Lock Flush) 10 ML PICC IV Last administered on 11/30/18at 05:52; Start 11/23/18 at 18:00; Stop 11/30/18 at 20:28; Status DC Sodium Chloride (Saline Lock Flush) 10 ml ASDIRECTED PRN IV SEE LABEL COMMENTS Last administered on 12/05/18at 03:46; Start 11/30/18 at 03:00 Sodium Chloride (Saline Lock Flush) 10 ml PICC IV Last administered on 12/05/18at 07:00; Start 11/30/18 at 06:00 Sodium Chloride (Saline Lock Flush) 10ML ASDIRECTED PRN IV SEE LABEL COMMENTS Last administered on 11/29/18at 20:37; Start 11/23/18 at 16:30; Stop 11/30/18 at 20:29; Status DC Sucralfate (Carafate Suspension) 1 gm ACHS PO Last administered on 11/25/18at 11:40; Start 11/22/18 at 21:00 Laboratory Tests 12/04/18 05:02 Calcium Level 7.4 L 12/04/18 05:35 Red Blood Count 2.75 L, Mean Corpuscular Volume 91.6, Mean Corpuscular Hemoglobin 29.8, Mean Corpuscular Hemoglobin Concent 32.5, Red Cell Distribution Width 17.8 H 12/05/18 06:11 Calcium Level 7.5 L, Red Blood Count 2.73 L, Mean Corpuscular Volume 91.9, Mean Corpuscular Hemoglobin 30.4, Mean Corpuscular Hemoglobin Concent 33.1, Red Cell Distribution Width 18.0 H Echocardiogram: . DVT prophylaxis ordered?: ASSESSMENT AND PLAN: This is a -year-old [RACE] [GENDER] with . PROBLEMS: 1. grade 3 mucositis 2. Chemo related anemia chemo realted fatigue jplatelet counts improveing and OK for PEG tube placement now 77 K Deconditioning from prolonged state of being bedbound DISPOSITION: PEG tube placement no further neuporgen needed ( off OCT ) OOB in chair as tolerated OT PT evaluation A-FIB/CHADSVASC A-FIB History Current/History of A-Fib/PAF?: No Current Oral Anticoagulant The: No Age/Risk Factor Scoring CHADSVASC: CHADSVASC Response (Comments) Value Age Risk Factor Age >/= 75 years old 2 Total 2 Treatment Treatment ordered: NONE Reason Anticoagulant not given: Recent/upcomin procedure Other reason anticoagulant not: patient had thrombocytopenia and is going for surgery today VS, I&O, 24H, Fishbone Vital Signs/I&O Vital Signs Date Time Temp Pulse Resp B/P (MAP) Pulse Ox O2 Delivery O2 Flow Rate FiO2 12/05/18 06:00 98.1 98 17 111/57 (75) 95 I&O- Last 24 Hours up to 6 AM 12/05/18 06:00 Intake Total 1870 ml Output Total 1205 ml Balance 665 ml Laboratory Data 24H LABS Laboratory Tests 2 12/04/18 11:33: Bedside Glucose (Misc Panel) 136H 12/04/18 17:56: Bedside Glucose (Misc Panel) 122H 12/05/18 00:41: Bedside Glucose (Misc Panel) 129H 12/05/18 06:11: Nucleated Red Blood Cells % (auto) 0.0, Immature Platelet Fraction 5.7, Anion Gap 7L, Glomerular Filtration Rate > 60.0, Blood Urea Nitrogen 16, Creatinine 0.77, Sodium Level 133L, Potassium Level 3.6, Chloride Level 101, Carbon Dioxide Level 25, Calcium Level 7.5L, Magnesium Level 1.8 CBC/BMP Laboratory Tests 12/05/18 06:11 Red Blood Count 2.73 L, Mean Corpuscular Volume 91.9, Mean Corpuscular Hemoglobin 30.4, Mean Corpuscular Hemoglobin Concent 33.1, Red Cell Distribution Width 18.0 H, Calcium Level 7.5 L Microbiology Microbiology 11/28/18 Blood Culture - Final, Complete NO GROWTH AFTER 5 DAYS 11/28/18 Blood Culture - Final, Complete NO GROWTH AFTER 5 DAYS Danielle Wray MD December 05, 2018 09:16
--- NOTE | 2018-12-05 12:07 | IPNPDOC ---
Subjective Date Seen The patient was seen on 12/05/18. Subjective Chief Complaint/HPI Patient seen and examined at the bedside. Discussed the need for him to work with physical therapy, as he previously declined to do so. He is amenable to working with them at this time. PT has been reordered. Otherwise, denies any focal complaints. Objective Physical Examination General Exam: Positive: Alert, Cooperative, No Acute Distress ENT Exam: Positive: Other ENT (Superficial ulceration over the tongue. Whitish patches over tongue, changes consistent with mucousitis) Chest Exam: Positive: Clear to auscultation, Normal air movement; Negative: Rales, Rhonchi, Wheezing Heart Exam: Positive: Rate Normal, Normal S1, Normal S2 Abdomen Exam: Positive: Soft; Negative: Tenderness Extremity Exam: Negative: Tenderness Neuro Exam: Positive: Other (awake, alert, answered questions appropriately.) Psych Exam: Positive: Oriented x 3 Assessment /Plan Plan/VTE VTE Prophylaxis Ordered?: Yes VTE Exclusion Pharmacological: Thrombocytopenia Plan Dehydration secondary to chemotherapy associated diarrhea and poor oral intakee The poor oral intake is likely related to painful swallowing related to chemotherapy, and consequent mucositis Continue Magic mouthwash, GI cocktail, benzocaine PICC Line placed on 11/29/18--TPN started on 11/30, patient/family agreeable to feeding tube Oncologist, Dr. Wray who agrees with the same. Spoke to Dr. Bland regarding feeding tube yesterday, and the patient has been put on the OR schedule for placement on 12/06/18 Pancytopenia 2/2 Chemotherapy Leukopenia, Anemia improved Heme/Onc on board Oral thrush s/p Diflucan trial Generalized weakness: PT/OT on board for functional optimization Hypertension Continue metoprolol with holding parameters Hx of Squamos Cell Ca of the RUL, Left Paratracheal Area, and RLL Nodue Hematology/Oncology on board DVT prophylaxis: SCDs Dispo: patient started on TPN 11/30, will have feeding tube placed on 12/06 by general surgery. VS, I&O, 24H, Fishbone Vital Signs/I&O Vital Signs Date Time Temp Pulse Resp B/P (MAP) Pulse Ox O2 Delivery O2 Flow Rate FiO2 12/05/18 06:00 98.1 98 17 111/57 (75) 95 I&O- Last 24 Hours up to 6 AM 12/05/18 05:59 Intake Total 1630 ml Output Total 1280 ml Balance 350 ml Laboratory Data 24H LABS Laboratory Tests 2 12/04/18 17:56: Bedside Glucose (Misc Panel) 122H 12/05/18 00:41: Bedside Glucose (Misc Panel) 129H 12/05/18 06:11: Nucleated Red Blood Cells % (auto) 0.0, Immature Platelet Fraction 5.7, Anion Gap 7L, Glomerular Filtration Rate > 60.0, Blood Urea Nitrogen 16, Creatinine 0.77, Sodium Level 133L, Potassium Level 3.6, Chloride Level 101, Carbon Dioxide Level 25, Calcium Level 7.5L, Magnesium Level 1.8 CBC/BMP Laboratory Tests 12/05/18 06:11 Red Blood Count 2.73 L, Mean Corpuscular Volume 91.9, Mean Corpuscular Hemoglobin 30.4, Mean Corpuscular Hemoglobin Concent 33.1, Red Cell Distribution Width 18.0 H, Calcium Level 7.5 L Microbiology Microbiology 11/28/18 Blood Culture - Final, Complete NO GROWTH AFTER 5 DAYS 11/28/18 Blood Culture - Final, Complete NO GROWTH AFTER 5 DAYS NAI POZO MD December 05, 2018 12:07
[2018-12-05 14:00] VITALS: BP 112/66
[2018-12-05] MEDS: HumaLOG INSULIN (NovoLOG) PER UNIT SC SCH (17:50)
[2018-12-05] MEDS ORDERED: FAT EMULSION IV 20% 500 ML IV SCH (18:00)
[2018-12-05] MEDS ORDERED: MULTIVITAMIN -ADULT INJECTION 10 ML, CR/CU/SE/MN/ZN INJ 1 ML in AMINO AC/ELECTROLYTE/DE... IV SCH (18:00)
[2018-12-05 22:00] VITALS: BP 121/70
--- NOTE | 2018-12-05 23:16 | CR ---
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 He has been getting some chemotherapy as well, presents with diarrhea, weakness and some radiation esophagitis. Essentially has been optimized from a medical standpoint over the last week and has been on TPN and I have been asked to place a percutaneous gastrostomy tube for him. He overall has had a previous gastrostomy tube for his head and neck cancer previously and on his PET scan over the last several months he has evidence of his stomach abutting the abdominal wall anteriorly adjacent to the previous gastrostomy tube site. He has no hernias in this area. 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 MEDICATIONS ON ADMISSION: Included - finasteride - metoprolol - ranitidine - Carafate - as needed (p.r.n.) Decadron, loperamide, and Zofran ordered. PHYSICAL EXAMINATION: Reveals a frail 78-year-old who looks much older than stated age. HEENT is unremarkable. Neck: Supple without adenopathy. Lungs are diminished bilaterally, right more than left. Heart is regular with a few irregular beats. Abdomen is soft, nondistended, nontender. No guarding, no rebound. No peritoneal signs are appreciated. IMPRESSION AND PLAN The patient is resolving his neutropenia associated with his chemotherapy. His dysphagia is slightly better than it was when he first came in but he still has ongoing dysphasia and is unable to adequately take by mouth (p.o.) intake. Thus at this point I would recommend proceeding with a percutaneous endoscopic gastrostomy tube. The risks as well as benefits have been discussed with the patient at length. He would like to proceed with this, understanding risks include but are not limited to infection, bleeding, damage to surrounding structures as well as perforation of surrounding structures, difficulty with enteral feeds etc., and difficulty with anesthesia or complications from sedation. Will plan on placement of this percutaneous endoscopic gastrostomy tube on 12/06.
[2018-12-06] VITALS (10 sets, daily range): BP systolic 99–131; BP diastolic 60–78
[2018-12-06] MEDS: HumaLOG INSULIN (NovoLOG) PER UNIT SC SCH ×3 (00:53→13:03)
[2018-12-06] MEDS: SODIUM CHLORIDE 0.9% INJ 10 ML SYR IV SCH ×2 (06:00→18:07)
[2018-12-06] MEDS: MORPHINE 4 MG/ML 1ML VIAL/SYRINGE (J2270) IV PRN ×3 (06:11→16:36)
[2018-12-06 06:13] LABS: HEMATOCRIT 24.7 % (42.0-52.0); HEMOGLOBIN 8.2 g/dl (13.5-17.5); MEAN CORPUSCULAR HEMOGLOBIN 30.5 pg (27.0-33.0); MEAN CORPUSCULAR HGB CONC 33.2 g/dl (32.0-36.5); MEAN CORPUSCULAR VOLUME 91.8 fl (80.0-96.0); RED BLOOD COUNT 2.69 10^6/uL (4.30-6.10)
[2018-12-06 06:15] LABS: PLATELET COUNT, AUTOMATED 81 10^3/uL (150-450)
[2018-12-06 06:32] LABS: BLOOD UREA NITROGEN 17 MG/DL (7-18); CALCIUM LEVEL 7.9 MG/DL (8.8-10.2); CARBON DIOXIDE LEVEL 26 MEQ/L (21-32); CHLORIDE LEVEL 100 MEQ/L (98-107); CREATININE FOR GFR 0.72 MG/DL (0.70-1.30); GLOMERULAR FILTRATION RATE > 60.0 (>42); GLUCOSE, FASTING 120 MG/DL (70-100); MAGNESIUM LEVEL 1.7 MG/DL (1.8-2.4); POTASSIUM SERUM 3.6 MEQ/L (3.5-5.1); SODIUM LEVEL 133 MEQ/L (136-145)
[2018-12-06] MEDS ORDERED: fentaNYL 100 MCG/2 ML INJECTION (J3010) As Ordered ONE (07:03)
[2018-12-06] MEDS ORDERED: PROPOFOL 200 MG/20 ML VIAL As Ordered ONE (07:03)
[2018-12-06] MEDS ORDERED: LIDOCAINE 2% INJ 100 MG/5 ML SDV (FOR ANES.) As Ordered ONE (07:03)
[2018-12-06] MEDS: FAMOTIDINE IV BAG 20 MG in APPROPRIATE DILUENT 1 EA IV SCH ×2 (07:08→18:07)
[2018-12-06] MEDS: SUCRALFATE SUSP 1GM/10ML UD PO SCH ×4 (07:30→21:00)
[2018-12-06] MEDS ORDERED: PHENYLephrine HCL 500 MCG/5 ML (100MCG/ML) SYRINGE (J2370) As Ordered ONE (08:03)
[2018-12-06] MEDS: METOPROLOL TART 12.5 MG PER 1/2 TAB PO SCH ×2 (08:56→21:00)
--- NOTE | 2018-12-06 12:32 | IPNPDOC ---
Subjective Date Seen The patient was seen on 12/06/18. Subjective Chief Complaint/HPI Patient seen and examined at the bedside this morning. He is status post PEG tube placement. He reports that he is feeling relatively well following the procedure and denies any acute complaints at this time. Objective Physical Examination General Exam: Positive: Alert, Cooperative, No Acute Distress ENT Exam: Positive: Other ENT (Superficial ulceration over the tongue. Whitish patches over tongue, changes consistent with mucousitis) Chest Exam: Positive: Clear to auscultation, Normal air movement; Negative: Rales, Rhonchi, Wheezing Heart Exam: Positive: Rate Normal, Normal S1, Normal S2 Abdomen Exam: Positive: Soft, Other (+PEG Tube); Negative: Tenderness Extremity Exam: Negative: Tenderness Neuro Exam: Positive: Other (awake, alert, answered questions appropriately.) Psych Exam: Positive: Oriented x 3 A-FIB/CHADSVASC A-FIB History Current/History of A-Fib/PAF?: No Age/Risk Factor Scoring CHADSVASC: CHADSVASC Response (Comments) Value Age Risk Factor Age >/= 75 years old 2 Total 2 Assessment /Plan Plan/VTE VTE Prophylaxis Ordered?: Yes VTE Exclusion Pharmacological: Thrombocytopenia Plan Dehydration secondary to chemotherapy associated diarrhea and poor oral intakee The poor oral intake is likely related to painful swallowing related to chemotherapy, and consequent mucositis Continue Magic mouthwash, GI cocktail, benzocaine PICC Line placed on 11/29/18--TPN started on 11/30 s/p PEG Tube placement on AM of 12/06/18--We will start the patient on Tube Feedings tomorrow as Per Gen Surg Cont TPN for now Pancytopenia 2/2 Chemotherapy Leukopenia, Anemia improved Heme/Onc on board Oral thrush s/p Diflucan trial Generalized weakness: PT/OT on board for functional optimization Hypertension Continue metoprolol with holding parameters Hx of Squamos Cell Ca of the RUL, Left Paratracheal Area, and RLL Nodue Hematology/Oncology on board DVT prophylaxis: SCDs Dispo: s/p feeding tube placement today by general surgery. Tube feedings to start tomorrow. Continue functional optimization with PT in the interim. VS, I&O, 24H, Fishbone Vital Signs/I&O Vital Signs Date Time Temp Pulse Resp B/P (MAP) Pulse Ox O2 Delivery O2 Flow Rate FiO2 5/2/19 11:39 16 12/06/18 10:35 97.2 102 113/63 (80) 96 I&O- Last 24 Hours up to 6 AM 12/06/18 06:00 Intake Total 1050 ml Output Total 1270 ml Balance -220 ml Laboratory Data 24H LABS Laboratory Tests 2 12/05/18 16:31: Bedside Glucose (Misc Panel) 128H 12/05/18 23:35: Bedside Glucose (Misc Panel) 122H 12/06/18 05:52: Nucleated Red Blood Cells % (auto) 0.0, Anion Gap 7L, Glomerular Filtration Rate > 60.0, Blood Urea Nitrogen 17, Creatinine 0.72, Sodium Level 133L, Potassium Level 3.6, Chloride Level 100, Carbon Dioxide Level 26, Calcium Level 7.9L, Magnesium Level 1.7L 12/06/18 06:06: Bedside Glucose (Misc Panel) 139H 12/06/18 12:12: Bedside Glucose (Misc Panel) 125H CBC/BMP Laboratory Tests 12/06/18 05:52 Red Blood Count 2.69 L, Mean Corpuscular Volume 91.8, Mean Corpuscular Hemoglobin 30.5, Mean Corpuscular Hemoglobin Concent 33.2, Red Cell Distribution Width 17.7 H, Calcium Level 7.9 L Microbiology Microbiology 11/28/18 Blood Culture - Final, Complete NO GROWTH AFTER 5 DAYS 11/28/18 Blood Culture - Final, Complete NO GROWTH AFTER 5 DAYS NAI POZO MD December 06, 2018 12:32
[2018-12-06] MEDS ORDERED: FAT EMULSION IV 20% 500 ML IV SCH (18:00)
[2018-12-06] MEDS ORDERED: AMINO AC/ELECTROLYTE/DEX/CALC 2,000 ML IV SCH (18:00)
[2018-12-06] MEDS: ACETAMINOPHEN 650 MG SUPP PR PRN (18:29)
[2018-12-06] MEDS: MEROPENEM INJ 1 GM in APPROPRIATE DILUENT 1 EA IV SCH (21:45)
[2018-12-07 02:00] VITALS: BP 131/73
[2018-12-07] MEDS: MEROPENEM INJ 1 GM in APPROPRIATE DILUENT 1 EA IV SCH ×2 (03:37→12:16)
[2018-12-07] MEDS: MORPHINE 4 MG/ML 1ML VIAL/SYRINGE (J2270) IV PRN ×4 (03:38→18:38)
[2018-12-07] MEDS: SODIUM CHLORIDE 0.9% INJ 10 ML SYR IV SCH ×2 (05:28→17:46)
[2018-12-07 05:45] LABS: HEMATOCRIT 24.1 % (42.0-52.0); HEMOGLOBIN 8.4 g/dl (13.5-17.5); MEAN CORPUSCULAR HGB CONC 34.9 g/dl (32.0-36.5); MEAN CORPUSCULAR VOLUME 97.6 fl (80.0-96.0); PLATELET COUNT, AUTOMATED 88 10^3/uL (150-450); RED BLOOD COUNT 2.47 10^6/uL (4.30-6.10); WHITE BLOOD COUNT 10.4 10^3/uL (4.0-10.0)
[2018-12-07 06:00] VITALS: BP 116/64
[2018-12-07] MEDS: FAMOTIDINE IV BAG 20 MG in APPROPRIATE DILUENT 1 EA IV SCH ×2 (06:03→17:47)
[2018-12-07 07:08] LABS: BLOOD UREA NITROGEN 17 MG/DL (7-18); CALCIUM LEVEL 7.3 MG/DL (8.8-10.2); CARBON DIOXIDE LEVEL 28 MEQ/L (21-32); CHLORIDE LEVEL 99 MEQ/L (98-107); CREATININE FOR GFR 0.71 MG/DL (0.70-1.30); GLOMERULAR FILTRATION RATE > 60.0 (>42); GLUCOSE, FASTING 129 MG/DL (70-100); MAGNESIUM LEVEL 1.8 MG/DL (1.8-2.4); POTASSIUM SERUM 3.9 MEQ/L (3.5-5.1); SODIUM LEVEL 134 MEQ/L (136-145)
[2018-12-07] MEDS: SUCRALFATE SUSP 1GM/10ML UD PO SCH ×2 (08:12→12:03)
[2018-12-07] MEDS: METOPROLOL TART 12.5 MG PER 1/2 TAB PO SCH (08:12)
[2018-12-07] MEDS ORDERED: MORPHINE 4 MG/ML 1ML VIAL/SYRINGE (J2270) IV ONE (08:45)
--- NOTE | 2018-12-07 09:23 | REP ---
ABDOMEN, FLAT UPRIGHT, PA CHEST, THREE VIEWS: HISTORY: Abdominal pain. COMPARISON: 11/22/2018 A small amount of air is present in the intestine. There are no air fluid levels or dilated loops of intestine. There is no pneumoperitoneum. A gastrostomy tube is present. The patient is status post stenting of an abdominal aortic aneurysm. An increase in interstitial markings is present in the lower lobes consistent with chronic interstitial fibrosis. Scarring is present in the right lung apex. A cardiac pacemaker is present. IMPRESSION: Nonspecific bowel gas pattern. Electronically Signed by Kofi Inman MD 12/07/2018 09:25 A
--- NOTE | 2018-12-07 09:57 | IPN ---
DATE OF SERVICE: 12/07/2018 Patient overall seems to be doing as expected this morning. Did have a temperature spike overnight, although it is back down to normal this morning. His white count is slightly elevated at 10.4 but otherwise he has been slowly progressing with his white count up and his platelet cells are starting to rebound nicely as well. Overall his abdominal pain seems to be minimal when he is resting however, when he moves around, he does have significant pain at the gastrostomy tube site. No evidence of hematoma. No evidence of erythema is appreciated at the abdominal wall. IMPRESSION AND PLAN: 1. Status post gastrostomy tube placement for dysphagia and overall at this point I do feel that we can start him on some tube feeds. Will start him at 25 mL an hour, increase it to 50 mL at noon and then if he tolerates this, continue on continuous feeds while he is here for a few days but it is reasonable to change him over to bolus feeds prior to discharge. He has done this at home before and I feel that he should be comfortable managing this issue. Otherwise no other intervention is necessary from a surgical standpoint. The gastrostomy tube site appears normal looking. His abdomen is rather benign in the areas outside of the gastrostomy tube itself. Thus it seems to be localized trauma to the abdominal wall as expected with this gastrostomy tube. In addition, the patient is well-known to me over the years and typically his pain response is significantly elevated to any traumatic procedure and thus I would use his pain levels as only one element of his overall course. 2. Elevated white count, fever last night, not sure if this was associated with some microaspiration that sometimes occurs especially with someone who has this chronic esophagitis issue and the sedation that he got yesterday or whether this was related to the gastrostomy tube. However, I do feel that no further intervention is necessary from a surgical standpoint. Further workup from a respiratory line infection, etc., is always reasonable. However, it does not seem unreasonable to see how his temperature curve goes today as well and to recheck his CBC later on today or tomorrow and if this is not increasing, that this was an isolated phenomenon. In any case, please contact me if you have any questions or concerns.
--- NOTE | 2018-12-07 09:57 | RO ---
DATE OF PROCEDURE: 12/06/2018 PREOPERATIVE DIAGNOSIS: Dysphagia with need for enteral access (tube feeds). POSTOPERATIVE DIAGNOSIS: Dysphagia with need for enteral access (tube feeds) PROCEDURE: Percutaneous endoscopic gastrostomy tube placement. SURGEON: Paul Bland MD RETAIL INVENTORY CONTROL CLERK: ANESTHESIA: Intravenous (IV) sedation. ESTIMATED BLOOD LOSS (EBL): Minimal. FLUIDS: Crystalloid. BRIEF PROCEDURE SUMMARY: The patient was brought to the endoscopy suite. He was given IV sedation. He was placed in the supine position. After adequate sedation, the abdominal area was prepped and draped in the usual sterile fashion. The patient had a previous gastrostomy tube in place in the upper abdomen and on previous CAT scans reveals that the stomach is abutting this area adjacent to the gastrostomy tube placement. 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 Transillumination of the abdominal wall as well as palpation revealed good placement in the left upper quadrant. The scope was advanced into the duodenum revealing no duodenal bulb inflammation. At this time, the scope was brought back into the stomach, insufflated. Transillumination as well as palpation in a one-to-one fashion revealed good placement for the gastrostomy tube and a finder needle was placed into the abdomen. Local was inserted in this area after prepping and draping in the usual sterile fashion and the wire was placed in this area. The wire was brought out through the oropharynx and the gastrostomy tube, [id number] was placed over the top of the wire and out through the abdominal wall. The scope was reinserted into the stomach revealing some mild further irritation of the esophagus associated with the gastrostomy tube going through the esophagus but otherwise no significant abnormality. The bolster was up against the abdominal wall. It was snug but not indenting the wall and the distance of the gastrostomy tube was 2 cm. Bolster was placed on the outside lightly abutting the skin as well and the tube aspirated and flushed without difficulty. The scope was removed in its entirety. The patient was awakened, brought to the recovery room, awake, alert and hemodynamically stable. Sponge and needle counts correct times two.
[2018-12-07 10:00] VITALS: BP 101/64
[2018-12-07] MEDS: SUCRALFATE SUSP 1GM/10ML UD PEG SCH ×3 (12:00→22:05)
--- NOTE | 2018-12-07 13:39 | IPNPDOC ---
Subjective Date Seen The patient was seen on 12/07/18. Subjective Chief Complaint/HPI Patient seen and examined at the bedside. He has been in some pain requiring IV morphine therapy following surgery yesterday. A KUB was done overnight which did not reveal any acute findings. General surgery has also evaluated the patient and has recommended tube feeding to be started today. Also of note, it appears that the patient did have isolated episodes of fever last night which have since resolved. Otherwise, no acute overnight events noted. Objective Physical Examination General Exam: Positive: Alert, Cooperative, No Acute Distress ENT Exam: Positive: Other ENT (Superficial ulceration over the tongue. Whitish patches over tongue, changes consistent with mucousitis) Chest Exam: Positive: Clear to auscultation, Normal air movement; Negative: Rales, Rhonchi, Wheezing Heart Exam: Positive: Rate Normal, Normal S1, Normal S2 Abdomen Exam: Positive: Soft, Other (+PEG Tube); Negative: Tenderness Extremity Exam: Negative: Tenderness Neuro Exam: Positive: Other (awake, alert, answered questions appropriately.) Psych Exam: Positive: Oriented x 3 A-FIB/CHADSVASC A-FIB History Current/History of A-Fib/PAF?: No Age/Risk Factor Scoring CHADSVASC: CHADSVASC Response (Comments) Value Age Risk Factor Age >/= 75 years old 2 Total 2 Assessment /Plan Plan/VTE VTE Prophylaxis Ordered?: Yes VTE Exclusion Pharmacological: Thrombocytopenia Plan Dehydration secondary to chemotherapy associated diarrhea and poor oral intake s/p PEG Tube placement The poor oral intake is likely related to painful swallowing related to chemotherapy, and consequent mucositis PICC Line placed on 11/29/18 for TPN, last dose 12/07/18 s/p PEG Tube placement on 12/06/18--> Tube Feedings started today as Per Gen Surg F/U KUB done due to patient c/o pain at the site of PEG tube, no acute findings noted--We will cont pain control at this time Pancytopenia 2/2 Chemotherapy Leukopenia, Anemia improved Heme/Onc on board Oral thrush s/p Diflucan trial Generalized weakness: PT/OT on board for functional optimization Hypertension Continue metoprolol with holding parameters Hx of Squamos Cell Ca of the RUL, Left Paratracheal Area, and RLL Nodue Hematology/Oncology on board DVT prophylaxis: SCDs Dispo: Tube feeding started. We will monitor the patient and his tolerability to tube feeding over the weekend, and anticipate D/C in 24-48hrs pending continued clinical improvement. VS, I&O, 24H, Fishbone Vital Signs/I&O Vital Signs Date Time Temp Pulse Resp B/P (MAP) Pulse Ox O2 Delivery O2 Flow Rate FiO2 12/07/18 10:00 97.7 116 16 101/64 (76) 100 I&O- Last 24 Hours up to 6 AM 12/07/18 06:00 Intake Total 470 ml Output Total 775 ml Balance -305 ml Laboratory Data 24H LABS Laboratory Tests 2 12/06/18 17:35: Bedside Glucose (Misc Panel) 116H 12/06/18 23:42: Bedside Glucose (Misc Panel) 133H 12/07/18 05:25: Nucleated Red Blood Cells % (auto) 0.0, Immature Platelet Fraction 6.1 12/07/18 06:10: Bedside Glucose (Misc Panel) 152H 12/07/18 06:26: Anion Gap 7L, Glomerular Filtration Rate > 60.0, Blood Urea Nitrogen 17, Creatinine 0.71, Sodium Level 134L, Potassium Level 3.9, Chloride Level 99, Carbon Dioxide Level 28, Calcium Level 7.3L, Magnesium Level 1.8 12/07/18 11:25: Bedside Glucose (Misc Panel) 131H CBC/BMP Laboratory Tests 12/07/18 05:25 Red Blood Count 2.47 L, Mean Corpuscular Volume 97.6 H, Mean Corpuscular Hemoglobin 34.0 H, Mean Corpuscular Hemoglobin Concent 34.9, Red Cell Distribution Width 18.4 H 12/07/18 06:26 Calcium Level 7.3 L Microbiology Microbiology 11/28/18 Blood Culture - Final, Complete NO GROWTH AFTER 5 DAYS 11/28/18 Blood Culture - Final, Complete NO GROWTH AFTER 5 DAYS NAI POZO MD December 07, 2018 13:39
[2018-12-07 14:00] VITALS: BP 112/59
[2018-12-07 18:00] VITALS: BP 102/66
[2018-12-07 22:00] VITALS: BP 110/61
[2018-12-07] MEDS: METOPROLOL TART 25 MG TABLET PEG SCH (22:05)
[2018-12-08] VITALS (9 sets, daily range): BP systolic 90–124; BP diastolic 50–64
[2018-12-08] MEDS ORDERED: LR 500 ML IV ONE (03:00)
[2018-12-08] MEDS: SODIUM CHLORIDE 0.9% INJ 10 ML SYR IV PRN (03:40)
[2018-12-08] MEDS: LR 500 ML IV ONE (03:45)
[2018-12-08] MEDS: SUCRALFATE SUSP 1GM/10ML UD PEG SCH ×3 (07:30→22:55)
[2018-12-08] MEDS: SODIUM CHLORIDE 0.9% INJ 10 ML SYR IV SCH (08:07)
[2018-12-08] MEDS: FAMOTIDINE IV BAG 20 MG in APPROPRIATE DILUENT 1 EA IV SCH ×2 (08:07→22:57)
[2018-12-08] MEDS: METOPROLOL TART 25 MG TABLET PEG SCH ×2 (09:00→22:54)
[2018-12-08 09:13] LABS: HEMATOCRIT 22.1 % (42.0-52.0); HEMOGLOBIN 7.2 g/dl (13.5-17.5); MEAN CORPUSCULAR HEMOGLOBIN 30.4 pg (27.0-33.0); MEAN CORPUSCULAR HGB CONC 32.6 g/dl (32.0-36.5); MEAN CORPUSCULAR VOLUME 93.2 fl (80.0-96.0); RED BLOOD COUNT 2.37 10^6/uL (4.30-6.10)
[2018-12-08 09:20] LABS: PLATELET COUNT, AUTOMATED 95 10^3/uL (150-450)
[2018-12-08 09:38] LABS: BLOOD UREA NITROGEN 17 MG/DL (7-18); CALCIUM LEVEL 7.2 MG/DL (8.8-10.2); CARBON DIOXIDE LEVEL 28 MEQ/L (21-32); CHLORIDE LEVEL 101 MEQ/L (98-107); CREATININE FOR GFR 0.65 MG/DL (0.70-1.30); GLOMERULAR FILTRATION RATE > 60.0 (>42); GLUCOSE, FASTING 112 MG/DL (70-100); MAGNESIUM LEVEL 1.5 MG/DL (1.8-2.4); POTASSIUM SERUM 3.9 MEQ/L (3.5-5.1); SODIUM LEVEL 135 MEQ/L (136-145)
[2018-12-08] MEDS: MORPHINE 4 MG/ML 1ML VIAL/SYRINGE (J2270) IV PRN ×2 (09:47→23:23)
--- NOTE | 2018-12-08 12:13 | IPNPDOC ---
Subjective Date Seen The patient was seen on 12/08/18. Subjective Chief Complaint/HPI Patient seen and examined at bedside this morning. States that his abdominal pain following PEG tube placement is improved this morning. He is tolerating a Tube Feed Diet without any acute complaints. Objective Physical Examination General Exam: Positive: Alert, Cooperative, No Acute Distress ENT Exam: Positive: Other ENT (Superficial ulceration over the tongue. Whitish patches over tongue, changes consistent with mucousitis) Chest Exam: Positive: Clear to auscultation, Normal air movement; Negative: Rales, Rhonchi, Wheezing Heart Exam: Positive: Rate Normal, Normal S1, Normal S2 Abdomen Exam: Positive: Soft, Other (+PEG Tube); Negative: Tenderness Extremity Exam: Negative: Tenderness Neuro Exam: Positive: Other (awake, alert, answered questions appropriately.) Psych Exam: Positive: Oriented x 3 A-FIB/CHADSVASC A-FIB History Current/History of A-Fib/PAF?: No Age/Risk Factor Scoring CHADSVASC: CHADSVASC Response (Comments) Value Age Risk Factor Age >/= 75 years old 2 Total 2 Assessment /Plan Plan/VTE VTE Prophylaxis Ordered?: Yes VTE Exclusion Pharmacological: Thrombocytopenia Plan Dehydration secondary to chemotherapy associated diarrhea and poor oral intake s/p PEG Tube placement The poor oral intake is likely related to painful swallowing related to chemotherapy, and consequent mucositis PICC Line placed on 11/29/18 for TPN, last dose 12/07/18 s/p PEG Tube placement on 12/06/18--> patient tolerating Tube Feedings without any acute complaints We will continue to monitor the patient at this time PT on board for functional optimization Pancytopenia 2/2 Chemotherapy Patient noted to be anemic with a hemoglobin of 7.2 this morning. No overt or active signs of bleeding noted. We will transfuse the patient 1 unit of packed red blood cells at this time Heme/Onc on board Oral thrush s/p Diflucan trial Generalized weakness: PT/OT on board for functional optimization Hypertension Continue metoprolol with holding parameters Hx of Squamos Cell Ca of the RUL, Left Paratracheal Area, and RLL Nodue Hematology/Oncology on board DVT prophylaxis: SCDs Dispo: Tube feeding started. PT on board for functional optimization. We will continue to monitor the patient's progress. VS, I&O, 24H, Fishbone Vital Signs/I&O Vital Signs Date Time Temp Pulse Resp B/P (MAP) Pulse Ox O2 Delivery O2 Flow Rate FiO2 12/08/18 10:00 98.0 115 16 90/56 (67) 97 I&O- Last 24 Hours up to 6 AM 12/08/18 06:00 Intake Total 1720 ml Output Total 775 ml Balance 945 ml Laboratory Data 24H LABS Laboratory Tests 2 12/07/18 17:25: Bedside Glucose (Misc Panel) 127H 12/08/18 08:50: Nucleated Red Blood Cells % (auto) 0.0, Immature Platelet Fraction 5.0, Anion Gap 6L, Glomerular Filtration Rate > 60.0, Blood Urea Nitrogen 17, Creatinine 0.65L, Sodium Level 135L, Potassium Level 3.9, Chloride Level 101, Carbon Dioxide Level 28, Calcium Level 7.2L, Magnesium Level 1.5L CBC/BMP Laboratory Tests 12/08/18 08:50 Red Blood Count 2.37 L, Mean Corpuscular Volume 93.2, Mean Corpuscular Hemoglobin 30.4, Mean Corpuscular Hemoglobin Concent 32.6, Red Cell Distribution Width 18.3 H, Calcium Level 7.2 L Microbiology Microbiology 11/28/18 Blood Culture - Final, Complete NO GROWTH AFTER 5 DAYS 11/28/18 Blood Culture - Final, Complete NO GROWTH AFTER 5 DAYS NAI POZO MD December 08, 2018 12:13
[2018-12-08] MEDS: MAG SULF 1GM/100ML (MAG RUN) 1 GM in APPROPRIATE DILUENT 1 EA IV SCH ×2 (13:31→14:46)
[2018-12-08 19:27] LABS: HEMATOCRIT 25.2 % (42.0-52.0); HEMOGLOBIN 8.2 g/dl (13.5-17.5)
[2018-12-09 02:00] VITALS: BP 112/65
[2018-12-09 06:00] VITALS: BP 101/56
[2018-12-09 06:25] LABS: HEMOGLOBIN 8.4 g/dl (13.5-17.5); MEAN CORPUSCULAR HEMOGLOBIN 29.6 pg (27.0-33.0); MEAN CORPUSCULAR HGB CONC 32.3 g/dl (32.0-36.5); MEAN CORPUSCULAR VOLUME 91.5 fl (80.0-96.0); PLATELET COUNT, AUTOMATED 105 10^3/uL (150-450); RED BLOOD COUNT 2.84 10^6/uL (4.30-6.10); WHITE BLOOD COUNT 5.3 10^3/uL (4.0-10.0)
[2018-12-09 06:29] LABS: BLOOD UREA NITROGEN 15 MG/DL (7-18); CALCIUM LEVEL 7.4 MG/DL (8.8-10.2); CARBON DIOXIDE LEVEL 29 MEQ/L (21-32); CHLORIDE LEVEL 101 MEQ/L (98-107); GLOMERULAR FILTRATION RATE > 60.0 (>42); GLUCOSE, FASTING 113 MG/DL (70-100); POTASSIUM SERUM 3.8 MEQ/L (3.5-5.1); SODIUM LEVEL 133 MEQ/L (136-145)
[2018-12-09] MEDS: METOPROLOL TART 25 MG TABLET PEG SCH ×2 (09:00→20:59)
[2018-12-09] MEDS: MORPHINE 4 MG/ML 1ML VIAL/SYRINGE (J2270) IV PRN ×2 (09:33→21:16)
[2018-12-09] MEDS: MAGIC MOUTHWASH SUSPENSION BTL SS PRN (09:41)
[2018-12-09] MEDS: SUCRALFATE SUSP 1GM/10ML UD PEG SCH ×4 (09:42→21:00)
[2018-12-09] MEDS: FAMOTIDINE IV BAG 20 MG in APPROPRIATE DILUENT 1 EA IV SCH ×2 (09:42→18:20)
--- NOTE | 2018-12-09 11:46 | IPNPDOC ---
Subjective Date Seen The patient was seen on 12/09/18. Subjective Chief Complaint/HPI Patient seen and examined at bedside. He has been tolerating his tube feeds without any acute complaints. He will begin working with physical therapy for further functional optimization. No acute overnight events noted. Objective Physical Examination General Exam: Positive: Alert, Cooperative, No Acute Distress ENT Exam: Positive: Other ENT (Superficial ulceration over the tongue. 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 We will ask PFS to follow-up with this tomorrow a.m. We will continue to monitor the patient at this time PT on board for functional optimization Pancytopenia 2/2 Chemotherapy Patient noted to be anemic with a hemoglobin of 7.2 this morning. No overt or active signs of bleeding noted. We will transfuse the patient 1 unit of packed red blood cells at this time Heme/Onc on board Oral thrush s/p Diflucan trial Generalized weakness: PT/OT on board for functional optimization Hypertension Continue metoprolol with holding parameters Hx of Squamos Cell Ca of the RUL, Left Paratracheal Area, and RLL Nodue Hematology/Oncology on board DVT prophylaxis: SCDs Dispo: Tube feeding started. PT on board for functional optimization. We will continue to monitor the patient's progress. VS, I&O, 24H, Fishbone Vital Signs/I&O Vital Signs Date Time Temp Pulse Resp B/P (MAP) Pulse Ox O2 Delivery O2 Flow Rate FiO2 12/09/18 09:33 16 12/09/18 06:00 97.6 115 101/56 (71) 98 I&O- Last 24 Hours up to 6 AM 12/09/18 06:00 Intake Total 442 ml Output Total 1685 ml Balance -1243 ml Laboratory Data 24H LABS Laboratory Tests 2 12/09/18 05:40: Nucleated Red Blood Cells % (auto) 0.0, Anion Gap 3L, Glomerular Filtration Rate > 60.0, Blood Urea Nitrogen 15, Creatinine 0.70, Sodium Level 133L, Potassium Level 3.8, Chloride Level 101, Carbon Dioxide Level 29, Calcium Level 7.4L CBC/BMP Laboratory Tests 12/09/18 05:40 Red Blood Count 2.84 L, Mean Corpuscular Volume 91.5, Mean Corpuscular Hemoglobin 29.6, Mean Corpuscular Hemoglobin Concent 32.3, Red Cell Distribution Width 18.6 H, Calcium Level 7.4 L NAI POZO MD December 09, 2018 11:46
[2018-12-09 14:00] VITALS: BP 120/70
[2018-12-09] MEDS: SODIUM CHLORIDE 0.9% INJ 10 ML SYR IV SCH ×2 (18:00→18:21)
[2018-12-09] MEDS: SODIUM CHLORIDE 0.9% INJ 10 ML SYR IV PRN (21:23)
[2018-12-09 22:00] VITALS: BP 101/63
[2018-12-10] MEDS: SODIUM CHLORIDE 0.9% INJ 10 ML SYR IV SCH ×2 (05:45→17:12)
[2018-12-10] MEDS: FAMOTIDINE IV BAG 20 MG in APPROPRIATE DILUENT 1 EA IV SCH ×2 (05:45→17:13)
[2018-12-10 06:00] VITALS: BP 109/67
[2018-12-10 06:51] LABS: HEMATOCRIT 26.2 % (42.0-52.0); HEMOGLOBIN 8.6 g/dl (13.5-17.5); MEAN CORPUSCULAR HEMOGLOBIN 30.1 pg (27.0-33.0); MEAN CORPUSCULAR HGB CONC 32.8 g/dl (32.0-36.5); MEAN CORPUSCULAR VOLUME 91.6 fl (80.0-96.0); PLATELET COUNT, AUTOMATED 127 10^3/uL (150-450); RED BLOOD COUNT 2.86 10^6/uL (4.30-6.10)
[2018-12-10 07:12] LABS: BLOOD UREA NITROGEN 15 MG/DL (7-18); CALCIUM LEVEL 7.4 MG/DL (8.8-10.2); CARBON DIOXIDE LEVEL 26 MEQ/L (21-32); CHLORIDE LEVEL 101 MEQ/L (98-107); CREATININE FOR GFR 0.75 MG/DL (0.70-1.30); GLOMERULAR FILTRATION RATE > 60.0 (>42); GLUCOSE, FASTING 118 MG/DL (70-100); POTASSIUM SERUM 3.8 MEQ/L (3.5-5.1); SODIUM LEVEL 133 MEQ/L (136-145)
[2018-12-10 07:39] VITALS: BP 107/65
[2018-12-10] MEDS: SUCRALFATE SUSP 1GM/10ML UD PEG SCH ×4 (09:29→21:00)
[2018-12-10] MEDS: METOPROLOL TART 25 MG TABLET PEG SCH ×2 (09:29→21:00)
--- NOTE | 2018-12-10 10:31 | IPNPDOC ---
Subjective Date Seen The patient was seen on 12/10/18. Subjective Chief Complaint/HPI Patient seen and examined at bedside. No acute overnight events noted. Objective Physical Examination General Exam: Positive: Alert, Cooperative, No Acute Distress ENT Exam: Positive: Other ENT (Superficial ulceration over the tongue. 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 PFS on board to further ascertain cost We will continue to monitor the patient at this time PT on board for functional optimization Pancytopenia 2/2 Chemotherapy Hemoglobin stable No indication for transfusion at this time. Heme/Onc on board Oral thrush s/p Diflucan trial Generalized weakness: PT/OT on board for functional optimization Hypertension Continue metoprolol with holding parameters Hx of Squamos Cell Ca of the RUL, Left Paratracheal Area, and RLL Nodue Hematology/Oncology on board DVT prophylaxis: SCDs Dispo: Tube feeding started. PT on board for functional optimization. We will continue to monitor the patient's progress. VS, I&O, 24H, Fishbone Vital Signs/I&O Vital Signs Date Time Temp Pulse Resp B/P (MAP) Pulse Ox O2 Delivery O2 Flow Rate FiO2 12/10/18 09:29 81 107/65 12/10/18 07:39 99.2 20 95 I&O- Last 24 Hours up to 6 AM 12/10/18 05:59 Intake Total 0 ml Output Total 1020 ml Balance -1020 ml Laboratory Data 24H LABS Laboratory Tests 2 12/10/18 05:44: Nucleated Red Blood Cells % (auto) 0.0, Anion Gap 6L, Glomerular Filtration Rate > 60.0, Blood Urea Nitrogen 15, Creatinine 0.75, Sodium Level 133L, Potassium Level 3.8, Chloride Level 101, Carbon Dioxide Level 26, Calcium Level 7.4L CBC/BMP Laboratory Tests 12/10/18 05:44 Red Blood Count 2.86 L, Mean Corpuscular Volume 91.6, Mean Corpuscular Hemoglobin 30.1, Mean Corpuscular Hemoglobin Concent 32.8, Red Cell Distribution Width 18.6 H, Calcium Level 7.4 L NAI POZO MD December 10, 2018 10:31
--- NOTE | 2018-12-10 12:58 | RADONC ---
RADIATION ONCOLOGY PROGRESS NOTE DATE: 12/10/2018 CHART #: [id number] Mr. Curry is thus far at a dose of 4800 cGy to his mediastinum and right lung and was last treated on 11/20/2018. The patient remains an inpatient at this time, unable to swallow secondary to his chemotherapy and radiation. He has refused radiation this week as well. The patient remains on rest at this point and we will continue to follow him.
[2018-12-10 14:00] VITALS: BP 113/61
[2018-12-10] MEDS: MORPHINE 4 MG/ML 1ML VIAL/SYRINGE (J2270) IV PRN (17:12)
[2018-12-10 22:00] VITALS: BP 114/55
[2018-12-11 06:00] VITALS: BP 100/66
[2018-12-11] MEDS: SODIUM CHLORIDE 0.9% INJ 10 ML SYR IV SCH ×2 (06:00→18:02)
[2018-12-11 06:18] LABS: HEMOGLOBIN 8.1 g/dl (13.5-17.5); MEAN CORPUSCULAR HEMOGLOBIN 29.9 pg (27.0-33.0); MEAN CORPUSCULAR HGB CONC 32.4 g/dl (32.0-36.5); MEAN CORPUSCULAR VOLUME 92.3 fl (80.0-96.0); PLATELET COUNT, AUTOMATED 128 10^3/uL (150-450); RED BLOOD COUNT 2.71 10^6/uL (4.30-6.10); WHITE BLOOD COUNT 4.6 10^3/uL (4.0-10.0)
[2018-12-11] MEDS: FAMOTIDINE IV BAG 20 MG in APPROPRIATE DILUENT 1 EA IV SCH ×2 (06:40→18:01)
[2018-12-11 06:42] LABS: BLOOD UREA NITROGEN 15 MG/DL (7-18); CALCIUM LEVEL 7.9 MG/DL (8.8-10.2); CARBON DIOXIDE LEVEL 29 MEQ/L (21-32); CHLORIDE LEVEL 101 MEQ/L (98-107); CREATININE FOR GFR 0.73 MG/DL (0.70-1.30); GLOMERULAR FILTRATION RATE > 60.0 (>42); GLUCOSE, FASTING 124 MG/DL (70-100); POTASSIUM SERUM 3.5 MEQ/L (3.5-5.1); SODIUM LEVEL 134 MEQ/L (136-145)
[2018-12-11] MEDS: METOPROLOL TART 25 MG TABLET PEG SCH ×2 (09:46→20:13)
[2018-12-11] MEDS: SUCRALFATE SUSP 1GM/10ML UD PEG SCH ×5 (09:50→20:30)
--- NOTE | 2018-12-11 14:16 | IPNPDOC ---
Subjective Date Seen The patient was seen on 12/11/18. Subjective Chief Complaint/HPI Family at bedside ,Patient offers no new complaints. Comfortable General: Denies: ROS Unobtainable, Chills, Night Sweats, Fatigue, Malaise, Normal Appetite, Other Symptoms Constitutional: Denies: Chills, Fever, Malaise, Night Sweats, Weakness, Fatigue, Weight Loss, Lethargy, Other Eyes: Denies: Pain, Vision change, Conjunctivae inflammation, Eyelid inflammation, Redness, Other ENT: Denies: Head Aches, Ear Pain, Dysphagia, Sinus Congestion, Post Nasal Dri p, Sore Throat, Epistaxis, Other Symptoms Skin: Denies: Rash, Lesions, Breakdown Pulmonary: Denies: Dyspnea, Cough, Pleuritic Chest Pain, Other Symptoms Cardiovascular: Denies: Chest Pain, Palpitations, Orthopnea, Paroxysmal Noc. Dyspnea, Edema, Lt Headedness, Other Symptoms Gastrointestinal: Denies: Nausea, Vomiting, Abdominal Pain, Diarrhea, Constipation, Melena, Hematochezia, Other Symptoms Genitourinary: Denies: Dysuria, Frequency, Incontinence, Hematuria, Retention, Other Symptoms Hematologic: Denies: Bruising, Bleeding Excessively, Petecchia, Purpura, Enla rged Lymph Nodes, Other Hematologic Endocrine: Denies: Polydipsia, Polyphagia, Polyuria, Heat Intolerance, Cold Intolerance, Other Endocrine Sx Musculoskeletal: Denies: Neck Pain, Back Pain, Shoulder Pain, Arm Pain, Hand Pain, Leg Pain, Foot Pain, Joint Pain, Muscle Pain, Spasms, Other Symptoms Neurological: Denies: Weakness, Numbness, Incoordination, Change in speech, Confusion, Seizures, Other Symptoms Psych: Denies: Mood Normal, Anxiety, Depression, Memory Issues, Thoughts of Self Harm, Anger, Thoughts of Harming Other, Other Psych Objective Physical Examination General Exam: Positive: Alert, Cooperative, No Acute Distress; Negative: Mild Distress, Moderate Distress, Severe Distress, Other ENT Exam: Positive: Other ENT (Superficial ulceration over the tongue. Whitish patches over tongue, changes consistent with mucousitis) Chest Exam: Positive: Clear to auscultation, Normal air movement; Negative: Rales, Rhonchi, Wheezing Heart Exam: Positive: Rate Normal, Normal S1, Normal S2 Abdomen Exam: Positive: Soft, Other (+PEG Tube); Negative: Tenderness Extremity Exam: Negative: Tenderness Neuro Exam: Positive: Other (awake, alert, answered questions appropriately.) Psych Exam: Positive: Oriented x 3 A-FIB/CHADSVASC A-FIB History Current/History of A-Fib/PAF?: No Age/Risk Factor Scoring CHADSVASC: CHADSVASC Response (Comments) Value Age Risk Factor Age >/= 75 years old 2 Total 2 Assessment /Plan Problems (1) Dehydration Status: Acute Problem Text: 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 PFS on board to further ascertain cost We will continue to monitor the patient at this time PT on board for functional optimization Pancytopenia 2/ Chemotherapy Hemoglobin stable No indication for transfusion at this time. Heme/Onc on board Oral thrush s/p Diflucan trial Generalized weakness: PT/OT on board for functional optimization Hypertension Continue metoprolol with holding parameters Hx of Squamos Cell Ca of the RUL, Left Paratracheal Area, and RLL Nodue Hematology/Oncology on board DVT prophylaxis: SCDs Dispo: Tube feeding started. PT on board for functional optimization. We will continue to monitor the patient's progress. (2) Generalized weakness (3) Pancytopenia due to chemotherapy Status: Acute Plan/VTE VTE Prophylaxis Ordered?: Yes VTE Exclusion Pharmacological: Thrombocytopenia VS, I&O, 24H, Fishbone Vital Signs/I&O Vital Signs Date Time Temp Pulse Resp B/P (MAP) Pulse Ox O2 Delivery O2 Flow Rate FiO2 12/11/18 09:46 103 101/63 12/11/18 06:00 98.0 18 97 I&O- Last 24 Hours up to 6 AM 12/11/18 06:00 Intake Total 800 ml Output Total 895 ml Balance -95 ml Laboratory Data 24H LABS Laboratory Tests 2 12/11/18 05:46: Nucleated Red Blood Cells % (auto) 0.0, Anion Gap 4L, Glomerular Filtration Rate > 60.0, Blood Urea Nitrogen 15, Creatinine 0.73, Sodium Level 134L, Potassium Level 3.5, Chloride Level 101, Carbon Dioxide Level 29, Calcium Level 7.9L CBC/BMP Laboratory Tests 12/11/18 05:46 Red Blood Count 2.71 L, Mean Corpuscular Volume 92.3, Mean Corpuscular Hemoglobin 29.9, Mean Corpuscular Hemoglobin Concent 32.4, Red Cell Distribution Width 18.5 H, Calcium Level 7.9 L NATE KOROMA MD December 11, 2018 14:15
[2018-12-11 15:00] VITALS: BP 94/59
[2018-12-11] MEDS: MORPHINE 4 MG/ML 1ML VIAL/SYRINGE (J2270) IV PRN (16:12)
[2018-12-11] MEDS ORDERED: NS 500 ML IV ONE (16:15)
[2018-12-11 17:00] VITALS: BP 105/76
[2018-12-11 22:00] VITALS: BP 109/60
[2018-12-12] MEDS: MORPHINE 4 MG/ML 1ML VIAL/SYRINGE (J2270) IV PRN ×2 (04:07→10:01)
[2018-12-12] MEDS: FAMOTIDINE IV BAG 20 MG in APPROPRIATE DILUENT 1 EA IV SCH ×2 (05:34→17:20)
[2018-12-12] MEDS: SODIUM CHLORIDE 0.9% INJ 10 ML SYR IV SCH ×2 (05:34→17:19)
[2018-12-12 06:00] VITALS: BP 114/64
[2018-12-12 06:14] LABS: HEMATOCRIT 24.3 % (42.0-52.0); HEMOGLOBIN 7.9 g/dl (13.5-17.5); MEAN CORPUSCULAR HEMOGLOBIN 29.8 pg (27.0-33.0); MEAN CORPUSCULAR HGB CONC 32.5 g/dl (32.0-36.5); MEAN CORPUSCULAR VOLUME 91.7 fl (80.0-96.0); PLATELET COUNT, AUTOMATED 150 10^3/uL (150-450); RED BLOOD COUNT 2.65 10^6/uL (4.30-6.10); WHITE BLOOD COUNT 5.3 10^3/uL (4.0-10.0)
[2018-12-12 06:37] LABS: BLOOD UREA NITROGEN 14 MG/DL (7-18); CALCIUM LEVEL 7.5 MG/DL (8.8-10.2); CARBON DIOXIDE LEVEL 26 MEQ/L (21-32); CHLORIDE LEVEL 102 MEQ/L (98-107); CREATININE FOR GFR 0.67 MG/DL (0.70-1.30); GLOMERULAR FILTRATION RATE > 60.0 (>42); GLUCOSE, FASTING 93 MG/DL (70-100); POTASSIUM SERUM 3.9 MEQ/L (3.5-5.1); SODIUM LEVEL 134 MEQ/L (136-145)
[2018-12-12] MEDS: METOPROLOL TART 25 MG TABLET PEG SCH ×2 (08:36→23:27)
[2018-12-12] MEDS: SUCRALFATE SUSP 1GM/10ML UD PEG SCH ×5 (08:44→23:30)
[2018-12-12] MEDS ORDERED: ANALGESIC BALM CRM 120 GM TOP PRN (09:45)
[2018-12-12 14:00] VITALS: BP 112/61
--- NOTE | 2018-12-12 14:57 | IPNPDOC ---
Subjective Date Seen The patient was seen on 12/12/18. Subjective Chief Complaint/HPI Offers no new complaints at the present time General: Denies: ROS Unobtainable, Chills, Night Sweats, Fatigue, Malaise, Norm al Appetite, Other Symptoms Constitutional: Denies: Chills, Fever, Malaise, Night Sweats, Weakness, Fatigue, Weight Loss, Lethargy, Other Eyes: Denies: Pain, Vision change, Conjunctivae inflammation, Eyelid inflammation, Redness, Other ENT: Denies: Head Aches, Ear Pain, Dysphagia, Sinus Congestion, Post Nasal Drip, Sore Throat, Epistaxis, Other Symptoms Skin: Denies: Rash, Lesions, Jaundice, Bruising, Itching, Dry, Breakdown, Nail Changes, Other Pulmonary: Denies: Dyspnea, Cough, Pleuritic Chest Pain, Other Symptoms Cardiovascular: Denies: Chest Pain, Palpitations, Orthopnea, Paroxysmal Noc. Dyspnea, Edema, Lt Headedness, Other Symptoms Gastrointestinal: Denies: Nausea, Vomiting, Abdominal Pain, Diarrhea, Constipation, Melena, Hematochezia, Other Symptoms Genitourinary: Denies: Dysuria, Frequency, Incontinence, Hematuria, Retention, Other Symptoms Hematologic: Denies: Bruising, Bleeding Excessively, Petecchia, Purpura, Enlarged Lymph Nodes, Other Hematologic Endocrine: Denies: Polydipsia, Polyphagia, Polyuria, Heat Intolerance, Cold Intolerance, Other Endocrine Sx Musculoskeletal: Denies: Neck Pain, Back Pain, Shoulder Pain, Arm Pain, Hand Pain, Leg Pain, Foot Pain, Joint Pain, Muscle Pain, Spasms, Other Symptoms Neurological: Denies: Weakness, Numbness, Incoordination, Change in speech, Confusion, Seizures, Other Symptoms Psych: Denies: Mood Normal, Anxiety, Depression, Memory Issues, Thoughts of Self Harm, Anger, Thoughts of Harming Other, Other Psych Objective Physical Examination General Exam: Positive: Alert, Cooperative, No Acute Distress; Negative: Mild Distress, Moderate Distress, Severe Distress, Other ENT Exam: Positive: Other ENT (Superficial ulceration over the tongue. Whitish patches over tongue, changes consistent with mucousitis) Chest Exam: Positive: Clear to auscultation, Normal air movement; Negative: Rales, Rhonchi, Wheezing Heart Exam: Positive: Rate Normal, Normal S1, Normal S2 Abdomen Exam: Positive: Soft, Other (+PEG Tube); Negative: Tenderness Extremity Exam: Negative: Tenderness Neuro Exam: Positive: Other (awake, alert, answered questions appropriately.) Psych Exam: Positive: Oriented x 3 A-FIB/CHADSVASC A-FIB History Current/History of A-Fib/PAF?: No Age/Risk Factor Scoring CHADSVASC: CHADSVASC Response (Comments) Value Age Risk Factor Age >/= 75 years old 2 Total 2 Assessment /Plan Problems (1) Dehydration Status: Acute Problem Text: 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 PFS on board to further ascertain cost We will continue to monitor the patient at this time PT on board for functional optimization Pancytopenia / Chemotherapy Hemoglobin stable No indication for transfusion at this time. Heme/Onc on board Oral thrush s/p Diflucan trial Generalized weakness: PT/OT on board for functional optimization Hypertension Continue metoprolol with holding parameters Hx of Squamos Cell Ca of the RUL, Left Paratracheal Area, and RLL Nodue Hematology/Oncology on board DVT prophylaxis: SCDs Dispo: Tube feeding started. PT on board for functional optimization. We will continue to monitor the patient's progress. (2) Generalized weakness (3) Pancytopenia due to chemotherapy Status: Acute Plan/VTE VTE Prophylaxis Ordered?: Yes VTE Exclusion Pharmacological: Thrombocytopenia VS, I&O, 24H, Fishbone Vital Signs/I&O Vital Signs Date Time Temp Pulse Resp B/P (MAP) Pulse Ox O2 Delivery O2 Flow Rate FiO2 12/12/18 10:13 18 12/12/18 08:36 107 98/64 12/12/18 06:00 97.7 95 I&O- Last 24 Hours up to 6 AM 12/12/18 06:00 Intake Total 1110 ml Output Total 900 ml Balance 210 ml Laboratory Data 24H LABS Laboratory Tests 2 12/12/18 05:47: Nucleated Red Blood Cells % (auto) 0.0, Anion Gap 6L, Glomerular Filtration Rate > 60.0, Blood Urea Nitrogen 14, Creatinine 0.67L, Sodium Level 134L, Potassium Level 3.9, Chloride Level 102, Carbon Dioxide Level 26, Calcium Level 7.5L CBC/BMP Laboratory Tests 12/12/18 05:47 Red Blood Count 2.65 L, Mean Corpuscular Volume 91.7, Mean Corpuscular Hemoglobin 29.8, Mean Corpuscular Hemoglobin Concent 32.5, Red Cell Distribution Width 18.6 H, Calcium Level 7.5 L NATE KOROMA MD December 12, 2018 14:57
[2018-12-12 22:00] VITALS: BP 122/67
[2018-12-13] MEDS: MORPHINE 4 MG/ML 1ML VIAL/SYRINGE (J2270) IV PRN
[2018-12-13] MEDS: ONDANSETRON 4MG/2ML VIAL (J2405) IV PRN ×2 (00:02→11:04)
[2018-12-13] MEDS ORDERED: SUCRALFATE SUSP 1GM/10ML UD PO ONE (01:30)
[2018-12-13] MEDS ORDERED: GI COCKTAIL 50ML BTL(HYOSCYAMINE/MAALOX/LIDOCAINE VISCOUS)(1:3:1) PO ONE (01:30)
[2018-12-13 06:00] VITALS: BP 132/68
[2018-12-13] MEDS: SODIUM CHLORIDE 0.9% INJ 10 ML SYR IV SCH (06:54)
[2018-12-13] MEDS: FAMOTIDINE IV BAG 20 MG in APPROPRIATE DILUENT 1 EA IV SCH (06:54)
[2018-12-13 07:13] LABS: HEMATOCRIT 23.9 % (42.0-52.0); HEMOGLOBIN 7.8 g/dl (13.5-17.5); MEAN CORPUSCULAR HEMOGLOBIN 30.7 pg (27.0-33.0); MEAN CORPUSCULAR HGB CONC 32.6 g/dl (32.0-36.5); MEAN CORPUSCULAR VOLUME 94.1 fl (80.0-96.0); PLATELET COUNT, AUTOMATED 153 10^3/uL (150-450); RED BLOOD COUNT 2.54 10^6/uL (4.30-6.10); WHITE BLOOD COUNT 4.6 10^3/uL (4.0-10.0)
[2018-12-13 07:48] LABS: BLOOD UREA NITROGEN 13 MG/DL (7-18); CALCIUM LEVEL 7.6 MG/DL (8.8-10.2); CARBON DIOXIDE LEVEL 28 MEQ/L (21-32); CHLORIDE LEVEL 99 MEQ/L (98-107); CREATININE FOR GFR 0.63 MG/DL (0.70-1.30); GLOMERULAR FILTRATION RATE > 60.0 (>42); GLUCOSE, FASTING 94 MG/DL (70-100); POTASSIUM SERUM 4.2 MEQ/L (3.5-5.1); SODIUM LEVEL 132 MEQ/L (136-145)
[2018-12-13] MEDS: METOPROLOL TART 25 MG TABLET PEG SCH ×2 (09:00→20:30)
[2018-12-13 09:20] VITALS: BP 100/58
[2018-12-13] MEDS: SUCRALFATE SUSP 1GM/10ML UD PEG SCH ×4 (09:25→20:30)
[2018-12-13] MEDS: METOCLOPRAMIDE HCL LIQUID 10 MG/10 ML UDC PEG SCH ×2 (12:00→17:37)
--- NOTE | 2018-12-13 13:49 | IPNPDOC ---
Subjective Date Seen The patient was seen on 12/13/18. Subjective Chief Complaint/HPI offers no new complaints at the present time General: Denies: ROS Unobtainable, Chills, Night Sweats, Fatigue, Malaise, Normal Appetite, Other Symptoms Constitutional: Denies: Chills, Fever, Malaise, Night Sweats, Weakness, Fatigue, Weight Loss, Lethargy, Other Eyes: Denies: Pain, Vision change, Conjunctivae inflammation, Eyelid inflammation, Redness, Other ENT: Denies: Head Aches, Ear Pain, Dysphagia, Sinus Congestion, Post Nasal Drip, Sore Throat, Epistaxis, Other Symptoms Skin: Denies: Rash, Lesions, Jaundice, Bruising, Itching, Dry, Breakdown, Nail Changes, Other Pulmonary: Denies: Dyspnea, Cough, Pleuritic Chest Pain, Other Symptoms Cardiovascular: Denies: Chest Pain, Palpitations, Orthopnea, Paroxysmal Noc. Dyspnea, Edema, Lt Headedness, Other Symptoms Gastrointestinal: Denies: Nausea, Vomiting, Abdominal Pain, Diarrhea, Constipation, Melena, Hematochezia, Other Symptoms Genitourinary: Denies: Dysuria, Frequency, Incontinence, Hematuria, Retention, Other Symptoms Hematologic: Denies: Bruising, Bleeding Excessively, Petecchia, Purpura, Enlarged Lymph Nodes, Other Hematologic Endocrine: Denies: Polydipsia, Polyphagia, Polyuria, Heat Intolerance, Cold Intolerance, Other Endocrine Sx Musculoskeletal: Denies: Neck Pain, Back Pain, Shoulder Pain, Arm Pain, Hand Pain, Leg Pain, Foot Pain, Joint Pain, Muscle Pain, Spasms, Other Symptoms Neurological: Denies: Weakness, Numbness, Incoordination, Change in speech, Confusion, Seizures, Other Symptoms Psych: Denies: Mood Normal, Anxiety, Depression, Memory Issues, Thoughts of Self Harm, Anger, Thoughts of Harming Other, Other Psych Objective Physical Examination General Exam: Positive: Alert, Cooperative, No Acute Distress; Negative: Mild Distress, Moderate Distress, Severe Distress, Other ENT Exam: Positive: Other ENT (Superficial ulceration over the tongue. Whitish patches over tongue, changes consistent with mucousitis) Chest Exam: Positive: Clear to auscultation, Normal air movement; Negative: Rales, Rhonchi, Wheezing Heart Exam: Positive: Rate Normal, Normal S1, Normal S2 Abdomen Exam: Positive: Soft, Other (+PEG Tube); Negative: Tenderness Extremity Exam: Negative: Tenderness Neuro Exam: Positive: Other (awake, alert, answered questions appropriately.) Psych Exam: Positive: Oriented x 3 A-FIB/CHADSVASC A-FIB History Current/History of A-Fib/PAF?: No Age/Risk Factor Scoring CHADSVASC: CHADSVASC Response (Comments) Value Age Risk Factor Age >/= 75 years old 2 Total 2 Assessment /Plan Problems (1) Dehydration Status: Acute Problem Text: 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 PFS on board to further ascertain cost We will continue to monitor the patient at this time PT on board for functional optimization Pancytopenia / Chemotherapy Hemoglobin stable No indication for transfusion at this time. Heme/Onc on board Oral thrush s/p Diflucan trial Generalized weakness: PT/OT on board for functional optimization Hypertension Continue metoprolol with holding parameters Hx of Squamos Cell Ca of the RUL, Left Paratracheal Area, and RLL Nodue Hematology/Oncology on board 2. Feedings will be changed to continuous again as patient is having symptoms of GERD with bolus feeding Reglan 5 mg by mouth every 6 hours has been admitted. Will continue his continues to feeding Change Pepcid to by mouth as well as hernandez morphine and Percocet and PICC line will be DC'd Awaiting placement in the long-term (2) Generalized weakness (3) Pancytopenia due to chemotherapy Status: Acute Plan/VTE VTE Prophylaxis Ordered?: Yes VTE Exclusion Pharmacological: Thrombocytopenia VS, I&O, 24H, Fishbone Vital Signs/I&O Vital Signs Date Time Temp Pulse Resp B/P (MAP) Pulse Ox O2 Delivery O2 Flow Rate FiO2 12/13/18 09:20 98.1 108 16 100/58 (72) 93 12/13/18 00:00 96.0 I&O- Last 24 Hours up to 6 AM 12/13/18 06:00 Intake Total 1735 ml Balance 1735 ml Laboratory Data 24H LABS Laboratory Tests 2 12/13/18 06:51: Nucleated Red Blood Cells % (auto) 0.0, Anion Gap 5L, Glomerular Filtration Rate > 60.0, Blood Urea Nitrogen 13, Creatinine 0.63L, Sodium Level 132L, Potassium Level 4.2, Chloride Level 99, Carbon Dioxide Level 28, Calcium Level 7.6L CBC/BMP Laboratory Tests 12/13/18 06:51 Red Blood Count 2.54 L, Mean Corpuscular Volume 94.1, Mean Corpuscular Hemoglobin 30.7, Mean Corpuscular Hemoglobin Concent 32.6, Red Cell Distribution Width 18.8 H, Calcium Level 7.6 L NATE KOROMA MD December 13, 2018 13:48
[2018-12-13 14:00] VITALS: BP 117/58
[2018-12-13] MEDS: FAMOTIDINE 20 MG TAB PO SCH (20:30)
[2018-12-13 22:00] VITALS: BP 117/72
[2018-12-13] MEDS: PERCOCET 5MG/325MG TAB PO PRN (23:20)
[2018-12-14 05:36] LABS: HEMATOCRIT 24.4 % (42.0-52.0); HEMOGLOBIN 7.7 g/dl (13.5-17.5); MEAN CORPUSCULAR HEMOGLOBIN 29.4 pg (27.0-33.0); MEAN CORPUSCULAR HGB CONC 31.6 g/dl (32.0-36.5); MEAN CORPUSCULAR VOLUME 93.1 fl (80.0-96.0); PLATELET COUNT, AUTOMATED 157 10^3/uL (150-450); RED BLOOD COUNT 2.62 10^6/uL (4.30-6.10); WHITE BLOOD COUNT 4.7 10^3/uL (4.0-10.0)
[2018-12-14] MEDS: METOCLOPRAMIDE HCL LIQUID 10 MG/10 ML UDC PEG SCH ×4 (05:40→18:47)
[2018-12-14 05:54] LABS: BLOOD UREA NITROGEN 15 MG/DL (7-18); CALCIUM LEVEL 8.2 MG/DL (8.8-10.2); CARBON DIOXIDE LEVEL 31 MEQ/L (21-32); CHLORIDE LEVEL 100 MEQ/L (98-107); CREATININE FOR GFR 0.71 MG/DL (0.70-1.30); GLOMERULAR FILTRATION RATE > 60.0 (>42); GLUCOSE, FASTING 151 MG/DL (70-100); POTASSIUM SERUM 3.9 MEQ/L (3.5-5.1); SODIUM LEVEL 135 MEQ/L (136-145)
[2018-12-14 06:00] VITALS: BP 100/61
[2018-12-14] MEDS: FAMOTIDINE 20 MG TAB PO SCH ×2 (08:22→20:31)
[2018-12-14] MEDS: SUCRALFATE SUSP 1GM/10ML UD PEG SCH ×4 (08:22→20:31)
[2018-12-14] MEDS: METOPROLOL TART 25 MG TABLET PEG SCH ×2 (08:23→20:36)
--- NOTE | 2018-12-14 12:08 | IPNPDOC ---
Subjective Date Seen The patient was seen on 12/14/18. Subjective Chief Complaint/HPI Patient offers no new complaints. The present time General: Denies: ROS Unobtainable, Chills, Night Sweats, Fatigue, Malaise, Normal Appetite, Other Symptoms Constitutional: Denies: Chills, Fever, Malaise, Night Sweats, Weakness, Fatigue, Weight Loss, Lethargy, Other Eyes: Denies: Pain, Vision change, Conjunctivae inflammation, Eyelid inflammation, Redness, Other ENT: Denies: Head Aches, Ear Pain, Dysphagia, Sinus Congestion, Post Nasal Drip, Sore Throat, Epistaxis, Other Symptoms Skin: Denies: Rash, Lesions, Jaundice, Bruising, Itching, Dry, Breakdown, Nail Changes, Other Pulmonary: Denies: Dyspnea, Cough, Pleuritic Chest Pain, Other Symptoms Cardiovascular: Denies: Chest Pain, Palpitations, Orthopnea, Paroxysmal Noc. Dyspnea, Edema, Lt Headedness, Other Symptoms Gastrointestinal: Denies: Nausea, Vomiting, Abdominal Pain, Diarrhea, Constipation, Melena, Hematochezia, Other Symptoms Genitourinary: Denies: Dysuria, Frequency, Incontinence, Hematuria, Retention, Other Symptoms Hematologic: Denies: Bruising, Bleeding Excessively, Petecchia, Purpura, Enlarged Lymph Nodes, Other Hematologic Endocrine: Denies: Polydipsia, Polyphagia, Polyuria, Heat Intolerance, Cold Intolerance, Other Endocrine Sx Musculoskeletal: Denies: Neck Pain, Back Pain, Shoulder Pain, Arm Pain, Hand Pain, Leg Pain, Foot Pain, Joint Pain, Muscle Pain, Spasms, Other Symptoms Neurological: Denies: Weakness, Numbness, Incoordination, Change in speech, Confusion, Seizures, Other Symptoms Psych: Denies: Mood Normal, Anxiety, Depression, Memory Issues, Thoughts of Self Harm, Anger, Thoughts of Harming Other, Other Psych Objective Physical Examination General Exam: Positive: Alert, Cooperative, No Acute Distress; Negative: Mild Distress, Moderate Distress, Severe Distress, Other ENT Exam: Positive: Other ENT (Superficial ulceration over the tongue. Whitish patches over tongue, changes consistent with mucousitis) Chest Exam: Positive: Clear to auscultation, Normal air movement; Negative: Rales, Rhonchi, Wheezing Heart Exam: Positive: Rate Normal, Normal S1, Normal S2 Abdomen Exam: Positive: Soft, Other (+PEG Tube); Negative: Tenderness Extremity Exam: Negative: Tenderness Neuro Exam: Positive: Other (awake, alert, answered questions appropriately.) Psych Exam: Positive: Oriented x 3 A-FIB/CHADSVASC A-FIB History Current/History of A-Fib/PAF?: No Age/Risk Factor Scoring CHADSVASC: CHADSVASC Response (Comments) Value Age Risk Factor Age >/= 75 years old 2 Total 2 Assessment /Plan Problems (1) Dehydration Status: Acute Problem Text: 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 PFS on board to further ascertain cost We will continue to monitor the patient at this time PT on board for functional optimization Pancytopenia / Chemotherapy Hemoglobin stable No indication for transfusion at this time. Heme/Onc on board Oral thrush s/p Diflucan trial Generalized weakness: PT/OT on board for functional optimization Hypertension Continue metoprolol with holding parameters Hx of Squamos Cell Ca of the RUL, Left Paratracheal Area, and RLL Nodue Hematology/Oncology on board 2. Feedings will be changed to continuous again as patient is having symptoms of GERD with bolus feeding Reglan 5 mg by mouth every 6 hours has been admitted. Will continue his continues to feeding Change Pepcid to by mouth as well as hernandez morphine and Percocet and PICC line will be DC'd Awaiting placement in the senior living (2) Generalized weakness (3) Pancytopenia due to chemotherapy Status: Acute Plan/VTE VTE Prophylaxis Ordered?: Yes VTE Exclusion Pharmacological: Thrombocytopenia VS, I&O, 24H, Fishbone Vital Signs/I&O Vital Signs Date Time Temp Pulse Resp B/P (MAP) Pulse Ox O2 Delivery O2 Flow Rate FiO2 12/14/18 08:23 102 129/72 12/14/18 06:00 98.4 17 96 12/13/18 00:00 96.0 I&O- Last 24 Hours up to 6 AM 12/14/18 06:00 Intake Total 875 ml Output Total 1175 ml Balance -300 ml Laboratory Data 24H LABS Laboratory Tests 2 12/14/18 05:09: Nucleated Red Blood Cells % (auto) 0.0, Anion Gap 4L, Glomerular Filtration Rate > 60.0, Blood Urea Nitrogen 15, Creatinine 0.71, Sodium Level 135L, Potassium Level 3.9, Chloride Level 100, Carbon Dioxide Level 31, Calcium Level 8.2L CBC/BMP Laboratory Tests 12/14/18 05:09 Red Blood Count 2.62 L, Mean Corpuscular Volume 93.1, Mean Corpuscular Hemoglobin 29.4, Mean Corpuscular Hemoglobin Concent 31.6 L, Red Cell Distribution Width 18.6 H, Calcium Level 8.2 L NATE KOROMA MD December 14, 2018 12:08
[2018-12-14 14:00] VITALS: BP 107/88
[2018-12-14 22:00] VITALS: BP 112/58
[2018-12-15] MEDS: METOCLOPRAMIDE HCL LIQUID 10 MG/10 ML UDC PEG SCH ×4 (00:04→17:14)
[2018-12-15 06:00] VITALS: BP 104/60
[2018-12-15 06:16] LABS: HEMATOCRIT 23.2 % (42.0-52.0); HEMOGLOBIN 7.5 g/dl (13.5-17.5); MEAN CORPUSCULAR HEMOGLOBIN 30.2 pg (27.0-33.0); MEAN CORPUSCULAR HGB CONC 32.3 g/dl (32.0-36.5); MEAN CORPUSCULAR VOLUME 93.5 fl (80.0-96.0); PLATELET COUNT, AUTOMATED 173 10^3/uL (150-450); RED BLOOD COUNT 2.48 10^6/uL (4.30-6.10); WHITE BLOOD COUNT 5.6 10^3/uL (4.0-10.0)
[2018-12-15 06:39] LABS: BLOOD UREA NITROGEN 13 MG/DL (7-18); CALCIUM LEVEL 7.7 MG/DL (8.8-10.2); CARBON DIOXIDE LEVEL 29 MEQ/L (21-32); CHLORIDE LEVEL 97 MEQ/L (98-107); CREATININE FOR GFR 0.72 MG/DL (0.70-1.30); GLOMERULAR FILTRATION RATE > 60.0 (>42); GLUCOSE, FASTING 135 MG/DL (70-100); POTASSIUM SERUM 3.5 MEQ/L (3.5-5.1); SODIUM LEVEL 132 MEQ/L (136-145)
[2018-12-15] MEDS: FAMOTIDINE 20 MG TAB PO SCH ×3 (07:45→20:10)
[2018-12-15] MEDS: SUCRALFATE SUSP 1GM/10ML UD PEG SCH ×4 (07:45→20:09)
[2018-12-15] MEDS: METOPROLOL TART 25 MG TABLET PEG SCH ×3 (07:45→20:10)
--- NOTE | 2018-12-15 10:14 | IPNPDOC ---
Subjective Date Seen The patient was seen on 12/15/18. Subjective Chief Complaint/HPI No new complaints. The present time General: Denies: ROS Unobtainable, Chills, Night Sweats, Fatigue, Malaise, Normal Appetite, Other Symptoms Constitutional: Denies: Chills, Fever, Malaise, Night Sweats, Weakness, Fatigue, Weight Loss, Lethargy, Other Eyes: Denies: Pain, Vision change, Conjunctivae inflammation, Eyelid inflammation, Redness, Other ENT: Denies: Head Aches, Ear Pain, Dysphagia, Sinus Congestion, Post Nasal Drip, Sore Throat, Epistaxis, Other Symptoms Skin: Denies: Rash, Lesions, Jaundice, Bruising, Itching, Dry, Breakdown, Nail Changes, Other Pulmonary: Denies: Dyspnea, Cough, Pleuritic Chest Pain, Other Symptoms Cardiovascular: Denies: Chest Pain, Palpitations, Orthopnea, Paroxysmal Noc. Dyspnea, Edema, Lt Headedness, Other Symptoms Gastrointestinal: Denies: Nausea, Vomiting, Abdominal Pain, Diarrhea, Constipation, Melena, Hematochezia, Other Symptoms Genitourinary: Denies: Dysuria, Frequency, Incontinence, Hematuria, Retention, Other Symptoms Hematologic: Denies: Bruising, Bleeding Excessively, Petecchia, Purpura, Enlarged Lymph Nodes, Other Hematologic Endocrine: Denies: Polydipsia, Polyphagia, Polyuria, Heat Intolerance, Cold Intolerance, Other Endocrine Sx Musculoskeletal: Denies: Neck Pain, Back Pain, Shoulder Pain, Arm Pain, Hand Pain, Leg Pain, Foot Pain, Joint Pain, Muscle Pain, Spasms, Other Symptoms Neurological: Denies: Weakness, Numbness, Incoordination, Change in speech, Confusion, Seizures, Other Symptoms Psych: Denies: Mood Normal, Anxiety, Depression, Memory Issues, Thoughts of S elf Harm, Anger, Thoughts of Harming Other, Other Psych Objective Physical Examination General Exam: Positive: Alert, Cooperative, No Acute Distress; Negative: Mild Distress, Moderate Distress, Severe Distress, Other ENT Exam: Positive: Other ENT (Superficial ulceration over the tongue. Whitish patches over tongue, changes consistent with mucousitis) Chest Exam: Positive: Clear to auscultation, Normal air movement; Negative: Rales, Rhonchi, Wheezing Heart Exam: Positive: Rate Normal, Normal S1, Normal S2 Abdomen Exam: Positive: Soft, Other (+PEG Tube); Negative: Tenderness Extremity Exam: Negative: Tenderness Neuro Exam: Positive: Other (awake, alert, answered questions appropriately.) Psych Exam: Positive: Oriented x 3 A-FIB/CHADSVASC A-FIB History Current/History of A-Fib/PAF?: No Age/Risk Factor Scoring CHADSVASC: CHADSVASC Response (Comments) Value Age Risk Factor Age >/= 75 years old 2 Total 2 Assessment /Plan Problems (1) Dehydration Status: Acute Problem Text: 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 PFS on board to further ascertain cost We will continue to monitor the patient at this time PT on board for functional optimization Pancytopenia 2/ Chemotherapy Hemoglobin stable No indication for transfusion at this time. Heme/Onc on board Oral thrush s/p Diflucan trial Generalized weakness: PT/OT on board for functional optimization Hypertension Continue metoprolol with holding parameters Hx of Squamos Cell Ca of the RUL, Left Paratracheal Area, and RLL Nodue Hematology/Oncology on board 2. Feedings will be changed to continuous again as patient is having symptoms of GERD with bolus feeding Reglan 5 mg by mouth every 6 hours has been admitted. Will continue his continues to feeding Change Pepcid to by mouth as well as hernandez morphine and Percocet and PICC line will be DC'd Awaiting placement in the intermediate (2) Generalized weakness (3) Pancytopenia due to chemotherapy Status: Acute Plan/VTE VTE Prophylaxis Ordered?: Yes VTE Exclusion Pharmacological: Thrombocytopenia VS, I&O, 24H, Fishbone Vital Signs/I&O Vital Signs Date Time Temp Pulse Resp B/P (MAP) Pulse Ox O2 Delivery O2 Flow Rate FiO2 12/15/18 06:00 97.2 110 16 104/60 (75) 95 12/13/18 00:00 96.0 I&O- Last 24 Hours up to 6 AM 12/15/18 06:00 Intake Total 600 ml Output Total 2250 ml Balance -1650 ml Laboratory Data 24H LABS Laboratory Tests 2 12/15/18 05:45: Nucleated Red Blood Cells % (auto) 0.0, Anion Gap 6L, Glomerular Filtration Rate > 60.0, Blood Urea Nitrogen 13, Creatinine 0.72, Sodium Level 132L, Potassium Level 3.5, Chloride Level 97L, Carbon Dioxide Level 29, Calcium Level 7.7L CBC/BMP Laboratory Tests 12/15/18 05:45 Red Blood Count 2.48 L, Mean Corpuscular Volume 93.5, Mean Corpuscular Hemoglobin 30.2, Mean Corpuscular Hemoglobin Concent 32.3, Red Cell Distribution Width 18.6 H, Calcium Level 7.7 L NATE KOROMA MD December 15, 2018 10:14
[2018-12-15 14:00] VITALS: BP 98/60
[2018-12-15] MEDS: PERCOCET 5MG/325MG TAB PO PRN (18:33)
[2018-12-15 22:00] VITALS: BP 97/60
[2018-12-16] MEDS: METOCLOPRAMIDE HCL LIQUID 10 MG/10 ML UDC PEG SCH ×5 (00:32→23:35)
[2018-12-16] MEDS: PERCOCET 5MG/325MG TAB PO PRN ×3 (00:33→21:04)
[2018-12-16 06:00] VITALS: BP 113/68
[2018-12-16] MEDS: METOPROLOL TART 25 MG TABLET PEG SCH ×2 (09:00→20:33)
[2018-12-16] MEDS: SUCRALFATE SUSP 1GM/10ML UD PEG SCH ×4 (09:18→20:33)
[2018-12-16] MEDS: FAMOTIDINE 20 MG TAB PO SCH ×2 (09:18→20:33)
--- NOTE | 2018-12-16 10:09 | IPNPDOC ---
Subjective Date Seen The patient was seen on 12/16/18. Subjective Chief Complaint/HPI Patient is comfortable, again wants to go home General: Denies: ROS Unobtainable, Chills, Night Sweats, Fatigue, Malaise, Normal Appetite, Other Symptoms Constitutional: Denies: Chills, Fever, Malaise, Night Sweats, Weakness, Fatigue, Weight Loss, Lethargy, Other Eyes: Denies: Pain, Vision change, Conjunctivae inflammation, Eyelid inflammation, Redness, Other ENT: Denies: Head Aches, Ear Pain, Dysphagia, Sinus Congestion, Post Nasal Drip, Sore Throat, Epistaxis, Other Symptoms Skin: Denies: Rash, Lesions, Jaundice, Bruising, Itching, Dry, Breakdown, Nail Changes, Other Pulmonary: Denies: Dyspnea, Cough, Pleuritic Chest Pain, Other Symptoms Cardiovascular: Denies: Chest Pain, Palpitations, Orthopnea, Paroxysmal Noc. Dyspnea, Edema, Lt Headedness, Other Symptoms Gastrointestinal: Denies: Nausea, Vomiting, Abdominal Pain, Diarrhea, Constipation, Melena, Hematochezia, Other Symptoms Genitourinary: Denies: Dysuria, Frequency, Incontinence, Hematuria, Retention, Other Symptoms Hematologic: Denies: Bruising, Bleeding Excessively, Petecchia, Purpura, Enlarged Lymph Nodes, Other Hematologic Endocrine: Denies: Polydipsia, Polyphagia, Polyuria, Heat Intolerance, Cold Intolerance, Other Endocrine Sx Musculoskeletal: Denies: Neck Pain, Back Pain, Shoulder Pain, Arm Pain, Hand Pain, Leg Pain, Foot Pain, Joint Pain, Muscle Pain, Spasms, Other Symptoms Neurological: Denies: Weakness, Numbness, Incoordination, Change in speech, Confusion, Seizures, Other Symptoms Psych: Denies: Mood Normal, Anxiety, Depression, Memory Issues, Thoughts of Self Harm, Anger, Thoughts of Harming Other, Other Psych Objective Physical Examination General Exam: Positive: Alert, Cooperative, No Acute Distress; Negative: Mild Distress, Moderate Distress, Severe Distress, Other ENT Exam: Positive: Other ENT (Superficial ulceration over the tongue. Whitish patches over tongue, changes consistent with mucousitis) Chest Exam: Positive: Clear to auscultation, Normal air movement; Negative: Rales, Rhonchi, Wheezing Heart Exam: Positive: Rate Normal, Normal S1, Normal S2 Abdomen Exam: Positive: Soft, Other (+PEG Tube); Negative: Tenderness Extremity Exam: Negative: Tenderness Neuro Exam: Positive: Other (awake, alert, answered questions appropriately.) Psych Exam: Positive: Oriented x 3 A-FIB/CHADSVASC A-FIB History Current/History of A-Fib/PAF?: No Age/Risk Factor Scoring CHADSVASC: CHADSVASC Response (Comments) Value Age Risk Factor Age >/= 75 years old 2 Total 2 Assessment /Plan Problems (1) Dehydration Status: Acute Problem Text: Dehydration secondary to chemotherapy associated diarrhea and poor oral intake s/p PEG Tube placement The poor oral intake is likely related to painful swallowing related to chemothe rapy, and consequent mucositis PICC Line placed on 11/29/18 for TPN, last dose 12/07/18 s/p PEG Tube placement on 12/06/18--> patient tolerating Tube Feedings without any acute complaints Tube feeding prescription was sent to his pharmacy on 12/09 however it was noted to be cost prohibitive. PFS on board to further ascertain cost We will continue to monitor the patient at this time PT on board for functional optimization Pancytopenia 2/2 Chemotherapy Hemoglobin stable No indication for transfusion at this time. Heme/Onc on board Oral thrush s/p Diflucan trial Generalized weakness: PT/OT on board for functional optimization Hypertension Continue metoprolol with holding parameters Hx of Squamos Cell Ca of the RUL, Left Paratracheal Area, and RLL Nodue Hematology/Oncology on board 2. Feedings will be changed to continuous again as patient is having symptoms of GERD with bolus feeding Reglan 5 mg by mouth every 6 hours has been admitted. Will continue his continues to feeding Change Pepcid to by mouth as well as hernandez morphine and Percocet and PICC line will be DC'd Awaiting placement in the custodial (2) Generalized weakness (3) Pancytopenia due to chemotherapy Status: Acute Plan/VTE VTE Prophylaxis Ordered?: Yes VTE Exclusion Pharmacological: Thrombocytopenia VS, I&O, 24H, Fishbone Vital Signs/I&O Vital Signs Date Time Temp Pulse Resp B/P (MAP) Pulse Ox O2 Delivery O2 Flow Rate FiO2 12/16/18 07:09 18 12/16/18 06:00 97.8 116 113/68 (83) 99 12/13/18 00:00 96.0 I&O- Last 24 Hours up to 6 AM 12/16/18 06:00 Intake Total 1200 ml Output Total 675 ml Balance 525 ml Laboratory Data 24H LABS Laboratory Tests 2 12/15/18 11:46: Bedside Glucose (Misc Panel) 148H NATE KOROMA MD December 16, 2018 10:09
[2018-12-16 14:00] VITALS: BP 117/57
[2018-12-16 22:00] VITALS: BP 108/67
[2018-12-17] MEDS: METOCLOPRAMIDE HCL LIQUID 10 MG/10 ML UDC PEG SCH ×4 (05:11→23:17)
[2018-12-17 06:00] VITALS: BP 129/72
[2018-12-17 08:36] VITALS: BP 98/57
[2018-12-17] MEDS: METOPROLOL TART 25 MG TABLET PEG SCH ×2 (09:00→21:32)
[2018-12-17] MEDS: FAMOTIDINE 20 MG TAB PO SCH ×2 (10:15→21:29)
[2018-12-17] MEDS ORDERED: ONDANSETRON 4 MG ORAL DISINTEGRATING TAB (Q0162 PER 1MG) PO PRN (10:15)
[2018-12-17] MEDS: SUCRALFATE SUSP 1GM/10ML UD PEG SCH ×4 (10:15→21:29)
--- NOTE | 2018-12-17 13:14 | IPNPDOC ---
Subjective Date Seen The patient was seen on 12/17/18. Subjective Chief Complaint/HPI Patient wants to try bolus feedings so he can be discharged. His son is at the bedside. We have with no other complaints General: Denies: ROS Unobtainable, Chills, Night Sweats, Fatigue, Malaise, Normal Appetite, Other Symptoms Eyes: Denies: Pain, Vision change, Conjunctivae inflammation, Eyelid inflammation, Redness, Other ENT: Denies: Head Aches, Ear Pain, Dysphagia, Sinus Congestion, Post Nasal Drip, Sore Throat, Epistaxis, Other Symptoms Skin: Denies: Rash, Lesions, Jaundice, Bruising, Itching, Dry, Breakdown, Nail Changes, Other Pulmonary: Denies: Dyspnea, Cough, Pleuritic Chest Pain, Other Symptoms Cardiovascular: Denies: Chest Pain, Palpitations, Orthopnea, Paroxysmal Noc. Dyspnea, Edema, Lt Headedness, Other Symptoms Gastrointestinal: Denies: Nausea, Vomiting, Abdominal Pain, Diarrhea, Constipation, Melena, Hematochezia, Other Symptoms Genitourinary: Denies: Dysuria, Frequency, Incontinence, Hematuria, Retention, Other Symptoms Hematologic: Denies: Bruising, Bleeding Excessively, Petecchia, Purpura, Enlarged Lymph Nodes, Other Hematologic Endocrine: Denies: Polydipsia, Polyphagia, Polyuria, Heat Intolerance, Cold Intolerance, Other Endocrine Sx Musculoskeletal: Denies: Neck Pain, Back Pain, Shoulder Pain, Arm Pain, Hand Pain, Leg Pain, Foot Pain, Joint Pain, Muscle Pain, Spasms, Other Symptoms Neurological: Denies: Weakness, Numbness, Incoordination, Change in speech, Confusion, Seizures, Other Symptoms Psych: Denies: Mood Normal, Anxiety, Depression, Memory Issues, Thoughts of Self Harm, Anger, Thoughts of Harming Other, Other Psych Objective Physical Examination General Exam: Positive: Alert, Cooperative, No Acute Distress; Negative: Mild Distress, Moderate Distress, Severe Distress, Other ENT Exam: Positive: Other ENT (Superficial ulceration over the tongue. Whitish patches over tongue, changes consistent with mucousitis) Chest Exam: Positive: Clear to auscultation, Normal air movement; Negative: Rales, Rhonchi, Wheezing Heart Exam: Positive: Rate Normal, Normal S1, Normal S2 Abdomen Exam: Positive: Soft, Other (+PEG Tube); Negative: Tenderness Extremity Exam: Negative: Tenderness Neuro Exam: Positive: Other (awake, alert, answered questions appropriately.) Psych Exam: Positive: Oriented x 3 A-FIB/CHADSVASC A-FIB History Current/History of A-Fib/PAF?: No Age/Risk Factor Scoring CHADSVASC: CHADSVASC Response (Comments) Value Age Risk Factor Age >/= 75 years old 2 Total 2 Assessment /Plan Problems (1) Dehydration Status: Acute Problem Text: 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 PFS on board to further ascertain cost We will continue to monitor the patient at this time Will restart patient's feeding by bolus and if he tolerates that he possibly will be discharged home with home care. Pancytopenia 2/2 Chemotherapy Hemoglobin stable No indication for transfusion at this time. Heme/Onc on board Oral thrush s/p Diflucan trial Generalized weakness: PT/OT on board for functional optimization Hypertension Continue metoprolol with holding parameters Hx of Squamos Cell Ca of the RUL, Left Paratracheal Area, and RLL Nodue Hematology/Oncology on board 2. Feedings will be changed to continuous again as patient is having symptoms of GERD with bolus feeding Reglan 5 mg by mouth every 6 hours has been admitted. Will continue his continues to feeding Change Pepcid to by mouth as well as hernandez morphine and Percocet and PICC line will be DC'd Awaiting placement in the shelter (2) Generalized weakness (3) Pancytopenia due to chemotherapy Status: Acute Plan/VTE VTE Prophylaxis Ordered?: Yes VTE Exclusion Pharmacological: Thrombocytopenia VS, I&O, 24H, Fishbone Vital Signs/I&O Vital Signs Date Time Temp Pulse Resp B/P (MAP) Pulse Ox O2 Delivery O2 Flow Rate FiO2 12/17/18 09:00 122 98/57 12/17/18 08:36 99.0 16 94 12/13/18 00:00 96.0 I&O- Last 24 Hours up to 6 AM 12/17/18 06:00 Intake Total 1200 ml Output Total 500 ml Balance 700 ml NATE KOROMA MD December 17, 2018 13:14
[2018-12-17 14:00] VITALS: BP 121/62
[2018-12-17] MEDS: PERCOCET 5MG/325MG TAB PO PRN (21:30)
[2018-12-17 22:00] VITALS: BP 103/55
[2018-12-18] MEDS: PERCOCET 5MG/325MG TAB PO PRN ×2 (04:04→17:32)
[2018-12-18] MEDS: METOCLOPRAMIDE HCL LIQUID 10 MG/10 ML UDC PEG SCH ×4 (04:10→23:35)
[2018-12-18 06:00] VITALS: BP_SYST 117; BP_SYST 139; BP_DIAS 62; BP_DIAS 74
[2018-12-18] MEDS: SUCRALFATE SUSP 1GM/10ML UD PEG SCH ×4 (08:24→21:00)
[2018-12-18] MEDS: FAMOTIDINE 20 MG TAB PO SCH ×2 (08:24→21:00)
[2018-12-18] MEDS: METOPROLOL TART 25 MG TABLET PEG SCH ×2 (08:25→21:00)
--- NOTE | 2018-12-18 12:34 | IPNPDOC ---
Subjective Date Seen The patient was seen on 12/18/18. Subjective Chief Complaint/HPI Patient is lying down in bed in no distress, tolerating bolus feedings. Son at bedside, patient was to go home soon General: Denies: ROS Unobtainable, Chills, Night Sweats, Fatigue, Malaise, Normal Appetite, Other Symptoms Constitutional: Denies: Chills, Fever, Malaise, Night Sweats, Weakness, Fatigue, Weight Loss, Lethargy, Other Eyes: Denies: Pain, Vision change, Conjunctivae inflammation, Eyelid inflammation, Redness, Other ENT: Denies: Head Aches, Ear Pain, Dysphagia, Sinus Congestion, Post Nasal Drip, Sore Throat, Epistaxis, Other Symptoms Skin: Denies: Rash, Lesions, Jaundice, Bruising, Itching, Dry, Breakdown, Nail Changes, Other Pulmonary: Denies: Dyspnea, Cough, Pleuritic Chest Pain, Other Symptoms Cardiovascular: Denies: Chest Pain, Palpitations, Orthopnea, Paroxysmal Noc. Dyspnea, Edema, Lt Headedness, Other Symptoms Gastrointestinal: Denies: Nausea, Vomiting, Abdominal Pain, Diarrhea, Constipation, Melena, Hematochezia, Other Symptoms Genitourinary: Denies: Dysuria, Frequency, Incontinence, Hematuria, Retention, Other Symptoms Hematologic: Denies: Bruising, Bleeding Excessively, Petecchia, Purpura, Enlarged Lymph Nodes, Other Hematologic Endocrine: Denies: Polydipsia, Polyphagia, Polyuria, Heat Intolerance, Cold Intolerance, Other Endocrine Sx Musculoskeletal: Denies: Neck Pain, Back Pain, Shoulder Pain, Arm Pain, Hand Pain, Leg Pain, Foot Pain, Joint Pain, Muscle Pain, Spasms, Other Symptoms Neurological: Denies: Weakness, Numbness, Incoordination, Change in speech, Confusion, Seizures, Other Symptoms Psych: Denies: Mood Normal, Anxiety, Depression, Memory Issues, Thoughts of Self Harm, Anger, Thoughts of Harming Other, Other Psych Objective Physical Examination General Exam: Positive: Alert, Cooperative, No Acute Distress; Negative: Mild Distress, Moderate Distress, Severe Distress, Other ENT Exam: Positive: Other ENT (Superficial ulceration over the tongue. Whitish patches over tongue, changes consistent with mucousitis) Chest Exam: Positive: Clear to auscultation, Normal air movement; Negative: Rales, Rhonchi, Wheezing Heart Exam: Positive: Rate Normal, Normal S1, Normal S2 Abdomen Exam: Positive: Soft, Other (+PEG Tube); Negative: Tenderness Extremity Exam: Negative: Tenderness Neuro Exam: Positive: Other (awake, alert, answered questions appropriately.) Psych Exam: Positive: Oriented x 3 A-FIB/CHADSVASC A-FIB History Current/History of A-Fib/PAF?: No Age/Risk Factor Scoring CHADSVASC: CHADSVASC Response (Comments) Value Age Risk Factor Age >/= 75 years old 2 Total 2 Assessment /Plan Problems (1) Dehydration Status: Acute Problem Text: 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 PFS on board to further ascertain cost We will continue to monitor the patient at this time Will restart patient's feeding by bolus and if he tolerates that he possibly will be discharged home with home care. Pancytopenia 2/2 Chemotherapy Hemoglobin stable No indication for transfusion at this time. Heme/Onc on board Oral thrush s/p Diflucan trial Generalized weakness: PT/OT on board for functional optimization Hypertension Continue metoprolol with holding parameters Hx of Squamos Cell Ca of the RUL, Left Paratracheal Area, and RLL Nodue Hematology/Oncology on board Feeding has been changed back to follow this. He will get a full can today and see how he tolerates it Possible DC home once he tolerates bolus feeding Continue all present meds Will repeat level tomorrow (2) Generalized weakness (3) Pancytopenia due to chemotherapy Status: Acute Plan/VTE VTE Prophylaxis Ordered?: Yes VTE Exclusion Pharmacological: Thrombocytopenia VS, I&O, 24H, Fishbone Vital Signs/I&O Vital Signs Date Time Temp Pulse Resp B/P (MAP) Pulse Ox O2 Delivery O2 Flow Rate FiO2 12/18/18 08:25 108 106/65 12/18/18 06:00 97.8 18 96 12/13/18 00:00 96.0 I&O- Last 24 Hours up to 6 AM 12/18/18 06:00 Intake Total 640 ml Output Total 200 ml Balance 440 ml NATE KOROMA MD December 18, 2018 12:33
[2018-12-18 16:00] VITALS: BP 116/66
[2018-12-18 22:00] VITALS: BP 100/69
[2018-12-19 06:00] VITALS: BP 103/58
[2018-12-19] MEDS: METOCLOPRAMIDE HCL LIQUID 10 MG/10 ML UDC PEG SCH ×4 (06:09→23:37)
[2018-12-19 06:18] LABS: HEMATOCRIT 23.5 % (42.0-52.0); HEMOGLOBIN 7.4 g/dl (13.5-17.5); MEAN CORPUSCULAR HEMOGLOBIN 29.7 pg (27.0-33.0); MEAN CORPUSCULAR HGB CONC 31.5 g/dl (32.0-36.5); MEAN CORPUSCULAR VOLUME 94.4 fl (80.0-96.0); PLATELET COUNT, AUTOMATED 201 10^3/uL (150-450); RED BLOOD COUNT 2.49 10^6/uL (4.30-6.10); WHITE BLOOD COUNT 6.5 10^3/uL (4.0-10.0)
[2018-12-19 06:47] LABS: ALBUMIN 1.8 GM/DL (3.2-5.2); ALT/SGPT 15 U/L (12-78); BILIRUBIN,TOTAL 0.6 MG/DL (0.2-1.0); BLOOD UREA NITROGEN 16 MG/DL (7-18); CALCIUM LEVEL 7.8 MG/DL (8.8-10.2); CARBON DIOXIDE LEVEL 28 MEQ/L (21-32); CHLORIDE LEVEL 99 MEQ/L (98-107); CREATININE FOR GFR 0.73 MG/DL (0.70-1.30); GLOMERULAR FILTRATION RATE > 60.0 (>42); GLUCOSE, FASTING 107 MG/DL (70-100); MAGNESIUM LEVEL 1.8 MG/DL (1.8-2.4); POTASSIUM SERUM 3.6 MEQ/L (3.5-5.1); SODIUM LEVEL 134 MEQ/L (136-145); TOTAL PROTEIN 6.1 GM/DL (6.4-8.2)
[2018-12-19] MEDS: FAMOTIDINE 20 MG TAB PO SCH ×2 (09:52→21:00)
[2018-12-19] MEDS: METOPROLOL TART 25 MG TABLET PEG SCH ×2 (09:54→21:00)
[2018-12-19] MEDS: SUCRALFATE SUSP 1GM/10ML UD PEG SCH ×4 (09:55→21:00)
--- NOTE | 2018-12-19 13:40 | IPNPDOC ---
Subjective Date Seen The patient was seen on 12/19/18. Subjective Chief Complaint/HPI Patient sleeping, easily arousable. Offers no complaints. Son at bedside General: Denies: ROS Unobtainable, Chills, Night Sweats, Fatigue, Malaise, Normal Appetite, Other Symptoms Constitutional: Denies: Chills, Fever, Malaise, Night Sweats, Weakness, Fatigue, Weight Loss, Lethargy, Other Eyes: Denies: Pain, Vision change, Conjunctivae inflammation, Eyelid inflammation, Redness, Other ENT: Denies: Head Aches, Ear Pain, Dysphagia, Sinus Congestion, Post Nasal Drip, Sore Throat, Epistaxis, Other Symptoms Skin: Denies: Rash, Lesions, Jaundice, Bruising, Itching, Dry, Breakdown, Nail Changes, Other Pulmonary: Denies: Dyspnea, Cough, Pleuritic Chest Pain, Other Symptoms Cardiovascular: Denies: Chest Pain, Palpitations, Orthopnea, Paroxysmal Noc. Dyspnea, Edema, Lt Headedness, Other Symptoms Gastrointestinal: Denies: Nausea, Vomiting, Abdominal Pain, Diarrhea, Co nstipation, Melena, Hematochezia, Other Symptoms Genitourinary: Denies: Dysuria, Frequency, Incontinence, Hematuria, Retention, Other Symptoms Hematologic: Denies: Bruising, Bleeding Excessively, Petecchia, Purpura, Enlarged Lymph Nodes, Other Hematologic Endocrine: Denies: Polydipsia, Polyphagia, Polyuria, Heat Intolerance, Cold In tolerance, Other Endocrine Sx Musculoskeletal: Denies: Neck Pain, Back Pain, Shoulder Pain, Arm Pain, Hand Pain, Leg Pain, Foot Pain, Joint Pain, Muscle Pain, Spasms, Other Symptoms Neurological: Denies: Weakness, Numbness, Incoordination, Change in speech, Confusion, Seizures, Other Symptoms Psych: Denies: Mood Normal, Anxiety, Depression, Memory Issues, Thoughts of Self Harm, Anger, Thoughts of Harming Other, Other Psych Objective Physical Examination General Exam: Positive: Alert, Cooperative, No Acute Distress; Negative: Mild Distress, Moderate Distress, Severe Distress, Other ENT Exam: Positive: Other ENT (Superficial ulceration over the tongue. Whitish patches over tongue, changes consistent with mucousitis) Chest Exam: Positive: Clear to auscultation, Normal air movement; Negative: Rales, Rhonchi, Wheezing Heart Exam: Positive: Rate Normal, Normal S1, Normal S2 Abdomen Exam: Positive: Soft, Other (+PEG Tube); Negative: Tenderness Extremity Exam: Negative: Tenderness Neuro Exam: Positive: Other (awake, alert, answered questions appropriately.) Psych Exam: Positive: Oriented x 3 A-FIB/CHADSVASC A-FIB History Current/History of A-Fib/PAF?: No Age/Risk Factor Scoring CHADSVASC: CHADSVASC Response (Comments) Value Age Risk Factor Age >/= 75 years old 2 Total 2 Assessment /Plan Problems (1) Dehydration Status: Acute Problem Text: 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 PFS on board to further ascertain cost We will continue to monitor the patient at this time Will restart patient's feeding by bolus and if he tolerates that he possibly will be discharged home with home care. Pancytopenia 2/ Chemotherapy Hemoglobin stable No indication for transfusion at this time. Heme/Onc on board Oral thrush s/p Diflucan trial Generalized weakness: PT/OT on board for functional optimization Hypertension Continue metoprolol with holding parameters Hx of Squamos Cell Ca of the RUL, Left Paratracheal Area, and RLL Nodue Hematology/Oncology on board Feeding has been changed back to follow this. He will get a full can today and see how he tolerates it Maryam is tolerating bolus feedings. He had a home hospital bed arrangement done and possibly will be discharged on Monday Continue all present meds (2) Generalized weakness (3) Pancytopenia due to chemotherapy Status: Acute Plan/VTE VTE Prophylaxis Ordered?: Yes VTE Exclusion Pharmacological: Thrombocytopenia VS, I&O, 24H, Fishbone Vital Signs/I&O Vital Signs Date Time Temp Pulse Resp B/P (MAP) Pulse Ox O2 Delivery O2 Flow Rate FiO2 12/19/18 09:54 122 103/66 12/19/18 06:00 97.9 18 96 12/13/18 00:00 96.0 I&O- Last 24 Hours up to 6 AM 12/19/18 06:00 Intake Total 955 ml Output Total 600 ml Balance 355 ml Laboratory Data 24H LABS Laboratory Tests 2 12/19/18 06:03: Nucleated Red Blood Cells % (auto) 0.0, Anion Gap 7L, Glomerular Filtration Rate > 60.0, Blood Urea Nitrogen 16, Creatinine 0.73, Sodium Level 134L, Potassium Level 3.6, Chloride Level 99, Carbon Dioxide Level 28, Calcium Level 7.8L, Aspartate Amino Transf (AST/SGOT) 18, Alanine Aminotransferase (ALT/SGPT) 15, Alkaline Phosphatase 71, Total Bilirubin 0.6, Total Protein 6.1L, Albumin 1.8L, Magnesium Level 1.8, Albumin/Globulin Ratio 0.42L CBC/BMP Laboratory Tests 12/19/18 06:03 Red Blood Count 2.49 L, Mean Corpuscular Volume 94.4, Mean Corpuscular Hemoglobin 29.7, Mean Corpuscular Hemoglobin Concent 31.5 L, Red Cell Distribution Width 18.8 H, Calcium Level 7.8 L, Aspartate Amino Transf (AST/SGOT) 18, Alanine Aminotransferase (ALT/SGPT) 15, Alkaline Phosphatase 71, Total Bilirubin 0.6, Total Protein 6.1 L, Albumin 1.8 L Microbiology Microbiology 12/19/18 Wound Culture, Received Pending NATE KOROMA MD December 19, 2018 13:40
[2018-12-19 14:00] VITALS: BP 118/67
[2018-12-19] MEDS: PERCOCET 5MG/325MG TAB PO PRN (18:05)
[2018-12-19 22:00] VITALS: BP 102/59
[2018-12-20] MEDS: METOCLOPRAMIDE HCL LIQUID 10 MG/10 ML UDC PEG SCH ×5 (05:23→23:19)
[2018-12-20 06:00] VITALS: BP 104/61
[2018-12-20] MEDS: ACETAMINOPHEN 650 MG SUPP PR PRN ×2 (06:22→17:51)
[2018-12-20] MEDS: FAMOTIDINE 20 MG TAB PO SCH ×2 (10:24→21:30)
[2018-12-20] MEDS: PERCOCET 5MG/325MG TAB PO PRN ×2 (10:24→17:51)
[2018-12-20] MEDS: SUCRALFATE SUSP 1GM/10ML UD PEG SCH ×5 (10:24→21:30)
[2018-12-20] MEDS: METOPROLOL TART 25 MG TABLET PEG SCH ×2 (10:26→21:30)
--- NOTE | 2018-12-20 11:51 | IPNPDOC ---
Subjective Date Seen The patient was seen on 12/20/18. Subjective Chief Complaint/HPI Patient sleeping comfortably, easily aroused offers no complaints. Son is at bedside General: Denies: ROS Unobtainable, Chills, Night Sweats, Fatigue, Malaise, Normal Appetite, Other Symptoms Constitutional: Denies: Chills, Fever, Malaise, Night Sweats, Weakness, Fatigue, Weight Loss, Lethargy, Other Eyes: Denies: Pain, Vision change, Conjunctivae inflammation, Eyelid inflammation, Redness, Other ENT: Denies: Head Aches, Ear Pain, Dysphagia, Sinus Congestion, Post Nasal Drip, Sore Throat, Epistaxis, Other Symptoms Skin: Denies: Rash, Lesions, Jaundice, Bruising, Itching, Dry, Breakdown, Nail Changes, Other Pulmonary: Denies: Dyspnea, Cough, Pleuritic Chest Pain, Other Symptoms Cardiovascular: Denies: Chest Pain, Palpitations, Orthopnea, Paroxysmal Noc. Dyspnea, Edema, Lt Headedness, Other Symptoms Gastrointestinal: Denies: Nausea, Vomiting, Abdominal Pain, Diarrhea, Constipation, Melena, Hematochezia, Other Symptoms Genitourinary: Denies: Dysuria, Frequency, Incontinence, Hematuria, Retention, Other Symptoms Hematologic: Denies: Bruising, Bleeding Excessively, Petecchia, Purpura, Enlarged Lymph Nodes, Other Hematologic Endocrine: Denies: Polydipsia, Polyphagia, Polyuria, Heat Intolerance, Cold Intolerance, Other Endocrine Sx Musculoskeletal: Denies: Neck Pain, Back Pain, Shoulder Pain, Arm Pain, Hand Pain, Leg Pain, Foot Pain, Joint Pain, Muscle Pain, Spasms, Other Symptoms Neurological: Denies: Weakness, Numbness, Incoordination, Change in speech, Confusion, Seizures, Other Symptoms Psych: Denies: Mood Normal, Anxiety, Depression, Memory Issues, Thoughts of Self Harm, Anger, Thoughts of Harming Other, Other Psych Objective Physical Examination General Exam: Positive: Alert, Cooperative, No Acute Distress; Negative: Mild Distress, Moderate Distress, Severe Distress, Other ENT Exam: Positive: Other ENT (Superficial ulceration over the tongue. Whitish patches over tongue, changes consistent with mucousitis) Chest Exam: Positive: Clear to auscultation, Normal air movement; Negative: Rales, Rhonchi, Wheezing Heart Exam: Positive: Rate Normal, Normal S1, Normal S2 Abdomen Exam: Positive: Soft, Other (+PEG Tube); Negative: Tenderness Extremity Exam: Negative: Tenderness Neuro Exam: Positive: Other (awake, alert, answered questions appropriately.) Psych Exam: Positive: Oriented x 3 A-FIB/CHADSVASC A-FIB History Current/History of A-Fib/PAF?: No Age/Risk Factor Scoring CHADSVASC: CHADSVASC Response (Comments) Value Age Risk Factor Age >/= 75 years old 2 Total 2 Assessment /Plan Problems (1) Dehydration Status: Acute Problem Text: 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 PFS on board to further ascertain cost We will continue to monitor the patient at this time Will restart patient's feeding by bolus and if he tolerates that he possibly will be discharged home with home care. Pancytopenia 2/2 Chemotherapy Hemoglobin stable No indication for transfusion at this time. Heme/Onc on board Oral thrush s/p Diflucan trial Generalized weakness: PT/OT on board for functional optimization Hypertension Continue metoprolol with holding parameters Hx of Squamos Cell Ca of the RUL, Left Paratracheal Area, and RLL Nodue Hematology/Oncology on board Feeding has been changed back to follow this. He will get a full can today and see how he tolerates it Patient is tolerating bolus feedings. He had a home hospital bed arrangement done and possibly will be discharged tomorrow Continue all present meds and present care (2) Generalized weakness Status: Chronic (3) Pancytopenia due to chemotherapy Status: Acute Plan/VTE VTE Prophylaxis Ordered?: Yes VTE Exclusion Pharmacological: Thrombocytopenia VS, I&O, 24H, Fishbone Vital Signs/I&O Vital Signs Date Time Temp Pulse Resp B/P (MAP) Pulse Ox O2 Delivery O2 Flow Rate FiO2 12/20/18 10:54 16 12/20/18 10:26 120 112/68 12/20/18 07:15 99.7 12/20/18 06:00 93 l I&O- Last 24 Hours up to 6 AM 12/20/18 06:00 Intake Total 970 ml Output Total 850 ml Balance 120 ml Laboratory Data Microbiology Microbiology 12/19/18 Wound Culture, Received Pending NATE KOROMA MD December 20, 2018 11:51
[2018-12-20 14:00] VITALS: BP_SYST 107; BP_SYST 144; BP_DIAS 56; BP_DIAS 73
[2018-12-20 17:47] VITALS: BP 128/59
[2018-12-20 18:56] LABS: HEMATOCRIT 21.7 % (42.0-52.0); MEAN CORPUSCULAR HEMOGLOBIN 30.8 pg (27.0-33.0); MEAN CORPUSCULAR HGB CONC 32.3 g/dl (32.0-36.5); MEAN CORPUSCULAR VOLUME 95.6 fl (80.0-96.0); PLATELET COUNT, AUTOMATED 223 10^3/uL (150-450); RED BLOOD COUNT 2.27 10^6/uL (4.30-6.10); WHITE BLOOD COUNT 7.7 10^3/uL (4.0-10.0)
--- NOTE | 2018-12-20 19:16 | REP ---
Chest one-view HISTORY: Fever Comparison: 12/06/2018 An increase in interstitial markings is present in the lower lobes consistent with chronic interstitial fibrosis. Patchy density is present in the right lower lobe consistent with an infiltrate. The heart is normal in size. The pulmonary vasculature is normal in appearance. A cardiac pacemaker is present. Impression: 1. Bibasilar chronic interstitial fibrosis. 2. Right lower lobe infiltrate. Electronically Signed by Kofi Inman MD 12/20/2018 07:07 P
[2018-12-20 19:27] LABS: ALBUMIN 1.8 GM/DL (3.2-5.2); ALT/SGPT 15 U/L (12-78); BILIRUBIN,TOTAL 0.4 MG/DL (0.2-1.0); BLOOD UREA NITROGEN 19 MG/DL (7-18); CALCIUM LEVEL 7.7 MG/DL (8.8-10.2); CARBON DIOXIDE LEVEL 28 MEQ/L (21-32); CHLORIDE LEVEL 98 MEQ/L (98-107); GLOMERULAR FILTRATION RATE > 60.0 (>42); GLUCOSE, FASTING 157 MG/DL (70-100); POTASSIUM SERUM 3.6 MEQ/L (3.5-5.1); SODIUM LEVEL 134 MEQ/L (136-145)
[2018-12-20 22:00] VITALS: BP 108/58
[2018-12-21] MEDS: METOCLOPRAMIDE HCL LIQUID 10 MG/10 ML UDC PEG SCH ×4 (05:14→23:47)
[2018-12-21 06:00] VITALS: BP 112/66
[2018-12-21] MEDS: FAMOTIDINE 20 MG TAB PO SCH ×2 (08:02→20:59)
[2018-12-21] MEDS: SUCRALFATE SUSP 1GM/10ML UD PEG SCH ×4 (08:02→20:59)
[2018-12-21] MEDS: METOPROLOL TART 25 MG TABLET PEG SCH ×2 (08:03→21:00)
[2018-12-21] MEDS ORDERED: MOXIFLOXACIN 400 MG TAB PO ONE (08:30)
[2018-12-21] MEDS: AZITHROMYCIN INJ 500 MG, VIAL MATE ADAPTER 1 EACH in D5W 250 ML IV SCH (09:18)
[2018-12-21] MEDS: cefTRIAXone SOD 2 GM in D5W MINI-BAG PLUS 50 ML IV SCH (10:26)
--- NOTE | 2018-12-21 13:41 | IPNPDOC ---
Date Seen The patient was seen on 12/21/18. Progress Note l. HEENT: Normocephalic, atraumatic. He has grade 3 to 4 mucositis, irritated buccal mucosa with some blood tinged sputum, tongue is somewhat swollen and tender. His lips are somewhat dry, parched. His neck is otherwise supple. Chest with decreased breath sounds at the bases. Cardiovascular: S1, S2 appreciated. Abdomen is otherwise soft, nontender. 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 Pneumonia with fever of 102 on iv abx. await defervescence and monitor cbc. sputum cx, urine legionella and urine strep pneumonia ordered check mrsa screen Symptomatic anemia with c/o weakness and fatigue 2units rbc transfusion 12/21/18 Pancytopenia secondary to chemotherapy and radiation Transfused the patient to maintain a hemoglobin above 8. Neupogen support in order to get his ANC in the 1500 range. 2units rbc transfusion 12/21/18 Radiation esophagitis s/p IV hydration s/p TPN s/p PEG with intermittent bolus feedings that are well tolerated. pt has some erythema around the PEG site treated with combination carafate/desitin cream and frequent dressing changes. Chronic obstructive pulmonary disease (COPD),compensated without overt wheezing or hypoxia prn nebs History of a pacemaker. History of cancer of the soft palate, status post resection and radiation in 2013. Essential hypertension. chronic Peptic ulcer disease. on PPI Abdominal aortic aneurysm. stable. disposition: postpone hospital discharge. A-FIB/CHADSVASC A-FIB History Current/History of A-Fib/PAF?: No Current Oral Anticoagulant The: No Age/Risk Factor Scoring CHADSVASC: CHADSVASC Response (Comments) Value Age Risk Factor Age >/= 75 years old 2 Total 2 VS, I&O, 24H, Fishbone Vital Signs/I&O Vital Signs Date Time Temp Pulse Resp B/P (MAP) Pulse Ox O2 Delivery O2 Flow Rate FiO2 12/21/18 08:03 120 113/68 12/21/18 06:00 99.5 20 92 I&O- Last 24 Hours up to 6 AM 12/21/18 06:00 Intake Total 1830 ml Output Total 695 ml Balance 1135 ml Laboratory Data 24H LABS Laboratory Tests 2 12/20/18 18:23: Urine Color YELLOW, Urine Appearance CLEAR, Urine pH 8.0, Urine Specific [place] 1.019, Urine Protein 1+H, Urine Glucose (UA) NEGATIVE, Urine Ketones NEGATIVE, Urine Blood NEGATIVE, Urine Nitrite NEGATIVE, Urine Bilirubin NEGATIVE, Urine Urobilinogen 4.0H, Urine Leukocyte Esterase NEGATIVE, Urine WBC (Auto) 1, Urine RBC (Auto) 1, Urine Hyaline Casts (Auto) 0, Urine Bacteria (Auto) NEGATIVE, Urine Squamous Epithelial Cells 1, Urine Sperm (Auto) 12/20/18 18:42: Nucleated Red Blood Cells % (auto) 0.0, Anion Gap 8, Glomerular Filtration Rate > 60.0, Blood Urea Nitrogen 19H, Creatinine 0.80, Sodium Level 134L, Potassium Level 3.6, Chloride Level 98, Carbon Dioxide Level 28, Calcium Level 7.7L, Aspartate Amino Transf (AST/SGOT) 18, Alanine Aminotransferase (ALT/SGPT) 15, Alkaline Phosphatase 76, Total Bilirubin 0.4, Total Protein 6.0L, Albumin 1.8L, Albumin/Globulin Ratio 0.43L CBC/BMP Laboratory Tests 12/20/18 18:42 Red Blood Count 2.27 L, Mean Corpuscular Volume 95.6, Mean Corpuscular Hemoglobin 30.8, Mean Corpuscular Hemoglobin Concent 32.3, Red Cell Distribution Width 19.2 H, Calcium Level 7.7 L, Aspartate Amino Transf (AST/SGOT) 18, Alanine Aminotransferase (ALT/SGPT) 15, Alkaline Phosphatase 76, Total Bilirubin 0.4, Total Protein 6.0 L, Albumin 1.8 L Microbiology Microbiology 12/19/18 Wound Culture - Preliminary, Resulted Staphylococcus Aureus KRYSTINA BINGHAM MD December 21, 2018 13:41
[2018-12-21 14:00] VITALS: BP 102/62
[2018-12-21] MEDS: PERCOCET 5MG/325MG TAB PO PRN ×2 (14:00→21:00)
[2018-12-21] MEDS: ENOXAPARIN 30 MG/0.3 ML SYR (J1650) SC SCH (18:20)
[2018-12-21 22:00] VITALS: BP 122/73
[2018-12-22] MEDS: METOCLOPRAMIDE HCL LIQUID 10 MG/10 ML UDC PEG SCH ×4 (05:47→23:14)
[2018-12-22] MEDS: ACETAMINOPHEN 650 MG SUPP PR PRN (05:47)
[2018-12-22 06:00] VITALS: BP 120/71
[2018-12-22] MEDS ORDERED: MOXIFLOXACIN 400 MG TAB PO SCH (06:00)
[2018-12-22 06:01] LABS: HEMATOCRIT 28.7 % (42.0-52.0); HEMOGLOBIN 9.2 g/dl (13.5-17.5); MEAN CORPUSCULAR HEMOGLOBIN 30.2 pg (27.0-33.0); MEAN CORPUSCULAR HGB CONC 32.1 g/dl (32.0-36.5); MEAN CORPUSCULAR VOLUME 94.1 fl (80.0-96.0); PLATELET COUNT, AUTOMATED 186 10^3/uL (150-450); RED BLOOD COUNT 3.05 10^6/uL (4.30-6.10); WHITE BLOOD COUNT 7.2 10^3/uL (4.0-10.0)
[2018-12-22 06:20] LABS: BLOOD UREA NITROGEN 15 MG/DL (7-18); CALCIUM LEVEL 8.2 MG/DL (8.8-10.2); CARBON DIOXIDE LEVEL 29 MEQ/L (21-32); CHLORIDE LEVEL 99 MEQ/L (98-107); CREATININE FOR GFR 0.68 MG/DL (0.70-1.30); GLOMERULAR FILTRATION RATE > 60.0 (>42); GLUCOSE, FASTING 94 MG/DL (70-100); POTASSIUM SERUM 3.8 MEQ/L (3.5-5.1); SODIUM LEVEL 133 MEQ/L (136-145)
[2018-12-22 06:54] LABS: EOSINOPHILS 1 % (0-5); LYMPHOCYTES 13 % (16-52); MONOCYTES 3 % (0-8); NEUTROPHILS 76 % (35-75); PLATELET ESTIMATE NORMAL (NORMAL)
[2018-12-22 06:55] LABS: ANISOCYTOSIS 1+; TOXIC GRANULATION 1+; TOXIC VACUOLATION 1+
[2018-12-22] MEDS: SUCRALFATE SUSP 1GM/10ML UD PEG SCH ×4 (08:09→20:57)
[2018-12-22] MEDS: ENOXAPARIN 30 MG/0.3 ML SYR (J1650) SC SCH (08:09)
[2018-12-22] MEDS: AZITHROMYCIN INJ 500 MG, VIAL MATE ADAPTER 1 EACH in D5W 250 ML IV SCH (08:09)
[2018-12-22] MEDS: METOPROLOL TART 25 MG TABLET PEG SCH ×2 (08:09→20:57)
[2018-12-22] MEDS: FAMOTIDINE 20 MG TAB PO SCH ×2 (08:10→20:56)
[2018-12-22] MEDS: cefTRIAXone SOD 2 GM in D5W MINI-BAG PLUS 50 ML IV SCH (09:18)
--- NOTE | 2018-12-22 12:32 | IPNPDOC ---
Text Note Date of Service The patient was seen on 12/22/18. NOTE Subjective: Patient is a 78-year-old male with a PMHx of HTN, s/p PPM, COPD, Soft palate CA s/p resection / radiation (), AAA, Peptic ulcer disease, Prior Hx of Feeding tube, Hx of Colostomy with reversal 2/2 diverticulitis who was recently diagnosed with Squamous cell CA ([id number]) of Right upper lung, Left paratracheal area and satellite R lower lobe nodule (s/p Taxol and Carboplatin, s/p Radiation). Patient presented to the emergency room with complaints of hemoptysis and radiation-induced esophagitis. Patient was admitted to hospice service for further evaluation and treatment. General surgery was called for placement of PEG tube. Patient's hospital course was complicated with the development of a pneumonia on 12/20. Patient was seen and examined at the bedside. Patient reports that he is not experiencing any chest pain or shortness of breath. Patient does report a cough that is productive in nature. He is still expressing fevers but denies any chills. Patient denies nausea, vomiting, abdominal pain. He reports that he's had a normal bowel movement this morning. Denies any urinary discomfort. Objective: Vitals (See below) General: Lying in bed, no acute distress, comfortable, Awake / Alert HEENT: NC, AT CVS: RRR, +S1S2 Lungs: Fair air entry b/l, there are rhonchi likely be appreciated at the right lung base. No evidence of wheezing or crackles Abdomen: Soft, ND, NT, + PEG tube Extremities: - Edema, - Calf tenderness Assessment and plan: Pneumonia - possibly 2/2 gram negative pneumonia, possibly 2/2 aspiration - Patient has reported that he denies any shortness of breath; has been expressing a productive cough - Patient is to experience fevers; however, this appears to be subsiding - He remains hemodynamically stable - No leukocytosis - MRSA screen pending - Sputum cx, urine legionella and urine strep pneumonia pending - CXR 12/20: 1. Bibasilar chronic interstitial fibrosis. 2. Right lower lobe infiltrate. - c/w Ceftriaxone and Azithromycin (Day #3) Symptomatic anemia - Patient had reported complaints of weakness and fatigue; however, has noted that this is improved today - s/p 2 units PRBC on 12/21/18 s/p Pancytopenia 2/2 chemotherapy and radiation - s/p Neupogen ; in order to get his ANC in the 1500 range. - s/p 2 units PRBC on 12/21/18 Radiation esophagitis - s/p IV hydration and TPN - s/p PEG tube placement on 12/06, with intermittent bolus feedings that are well tolerated - PEG tube site does not appear to reveal any significant degree or erythema / drainage - c/w Sucralfate and Desitin cream - c/w Dressing changes / wound care COPD - Currently does not appear to have any signs of exacerbation - c/w inhaled therapy as ordered Hx of PMM History of cancer of the soft palate - s/p Resection and radiation 2013 HTN - BP appears well controlled - c/w Metoprolol chronic AAA - No changes - Will have outpatient f/u with PMD GERD / Peptic ulcer disease - c/w Famotidine / Sucralfate DVT prophylaxis - c/w Lovenox Disposition: - Awaiting for fevers to resolve before transitioning to oral antibiotics VSMal, I+O VS, Mal I+O Laboratory Tests 12/22/18 05:33 Red Blood Count 3.05 L, Mean Corpuscular Volume 94.1, Mean Corpuscular Hemoglobin 30.2, Mean Corpuscular Hemoglobin Concent 32.1, Red Cell Distribution Width 18.1 H, Calcium Level 8.2 L Vital Signs Date Time Temp Pulse Resp B/P (MAP) Pulse Ox O2 Delivery O2 Flow Rate FiO2 12/22/18 08:09 106 125/78 12/22/18 08:00 98.1 12/22/18 06:00 19 91 I&O- Last 24 Hours up to 6 AM 12/22/18 06:00 Intake Total 650 ml Output Total 1620 ml Balance -970 ml RAIN KATE MD December 22, 2018 12:32
[2018-12-22 14:00] VITALS: BP 109/64
[2018-12-22 20:30] VITALS: BP 129/76
[2018-12-22 20:57] VITALS: BP 129/54
[2018-12-22 22:00] VITALS: BP 131/81
[2018-12-23] MEDS: PERCOCET 5MG/325MG TAB PO PRN (03:27)
[2018-12-23 03:33] LABS: CK-MB VALUE MASS < 1.0 NG/ML (<3.6); CPK CREATINE PHOSPHOKINASE 17 U/L (39-308); MB/CK RELATIVE INDEX 5.88 (< OR =4); TROPONIN I < 0.02 NG/ML (< 0.10)
[2018-12-23] MEDS: METOCLOPRAMIDE HCL LIQUID 10 MG/10 ML UDC PEG SCH (05:55)
[2018-12-23 06:00] VITALS: BP 98/60
[2018-12-23 06:01] LABS: BASO % 0.3 % (0.0-1.0); EOS % 0.1 % (0.0-3.0); HEMATOCRIT 27.9 % (42.0-52.0); LYMPH # 1.2 10^3/uL (1.5-4.5); LYMPH % 14.6 % (24.0-44.0); MEAN CORPUSCULAR HEMOGLOBIN 29.4 pg (27.0-33.0); MEAN CORPUSCULAR HGB CONC 32.3 g/dl (32.0-36.5); MEAN CORPUSCULAR VOLUME 91.2 fl (80.0-96.0); MONO # 0.5 10^3/uL (0.0-0.8); MONO % 5.7 % (0.0-5.0); NEUTROPHILS % 74.9 % (36.0-66.0); PLATELET COUNT, AUTOMATED 198 10^3/uL (150-450); RED BLOOD COUNT 3.06 10^6/uL (4.30-6.10); WHITE BLOOD COUNT 7.9 10^3/uL (4.0-10.0)
[2018-12-23 06:18] LABS: BLOOD UREA NITROGEN 16 MG/DL (7-18); CALCIUM LEVEL 8.2 MG/DL (8.8-10.2); CARBON DIOXIDE LEVEL 27 MEQ/L (21-32); CHLORIDE LEVEL 98 MEQ/L (98-107); CREATININE FOR GFR 0.61 MG/DL (0.70-1.30); GLOMERULAR FILTRATION RATE > 60.0 (>42); GLUCOSE, FASTING 111 MG/DL (70-100); POTASSIUM SERUM 3.7 MEQ/L (3.5-5.1); SODIUM LEVEL 132 MEQ/L (136-145)
[2018-12-23] MEDS: NS 500 ML IV ONE ×2 (07:15→07:35)
[2018-12-23 07:31] VITALS: BP 112/70
[2018-12-23] MEDS ORDERED: NS 1,000 ML IV SCH (08:30)
[2018-12-23] MEDS ORDERED: AZIT200S30 PO (08:52)
[2018-12-23] MEDS ORDERED: METO1TAB87 PEG (08:52)
[2018-12-23] MEDS ORDERED: PERCOCET PO (08:52)
[2018-12-23] MEDS ORDERED: CEFD250S26 PO (08:52)
[2018-12-23] MEDS: AZITHROMYCIN INJ 500 MG, VIAL MATE ADAPTER 1 EACH in D5W 250 ML IV SCH (09:00)
[2018-12-23] MEDS: SUCRALFATE SUSP 1GM/10ML UD PEG SCH (09:10)
[2018-12-23] MEDS: FAMOTIDINE 20 MG TAB PO SCH (09:10)
--- NOTE | 2018-12-23 11:44 | ECGEPIP ---
Stationary ECG Study [facility] Test Date: 2018-12-22 Pat Name: RONALD ARORA Department: Room: [place] [address] Gender: M Hydrologist: : 1940 Requested By: ALYCIA ROMERO Order Number: [id number] Reading MD: Adolfo Oswald Measurements Intervals [place] Rate: 114 P: [place]: 0 QRS: 60 QRSD: 83 T: 59 QT: 326 QTc: 450 Interpretive Statements Sinus tachycardia with first degree AV block Frequent PACs Low voltages with slow precordial R-wave progression, persistent S waves V5 and V6, and miniscule inferior Q waves; body habitus versus pulmonary disease Less artifact than 11/25/18. Electronically Signed On 12-23-2018 11:44:22 EDT by Adolfo Oswald
--- NOTE | 2018-12-23 11:54 | DS.PDOC ---
Discharge Summary General Date of Admission Nov 22, 2018 at 18:40 Date of Discharge 12/23/2017 Discharge Summary PROCEDURES PERFORMED DURING STAY: 12/06/2018 - Dr. Bland - Percutaneous endoscopic gastrostomy tube placement ADMITTING DIAGNOSES / DISCHARGE DIAGNOSES: Pneumonia - possibly 2/2 gram negative pneumonia, possibly 2/2 aspiration Symptomatic anemia s/p Pancytopenia 2/2 chemotherapy and radiation Radiation esophagitis Hyponatremia - likely 2/2 chemotherapy 2/2 Taxol COPD Hx of PMM History of cancer of the soft palate HTN AAA GERD / Peptic ulcer disease DVT prophylaxis COMPLICATIONS/CHIEF COMPLAINT: Coughing blood HISTORY OF PRESENT ILLNESS: Patient is a 78-year-old male with a PMHx of HTN, s/p PPM, COPD, Soft palate CA s/p resection / radiation (), AAA, Peptic ulcer disease, Prior Hx of Feeding tube, Hx of Colostomy with reversal 2/2 diverticulitis who was recently diagnosed with Squamous cell CA ([id number]) of Right upper lung, Left paratracheal area and satellite R lower lobe nodule (s/p Taxol and Carboplatin, s/p Radiation). Patient presented to the emergency room with complaints of hemoptysis and radiation-induced esophagitis. Patient was admitted to hospice service for further evaluation and treatment. General surgery was called for placement of PEG tube. Patient's hospital course was complicated with the development of a pneumonia on 12/20. HOSPITAL COURSE: Pneumonia - possibly 2/2 gram negative pneumonia, possibly 2/2 aspiration - Patient has reported that he denies any shortness of breath; has been expressing a productive cough - No fevers in >24 hours - He remains hemodynamically stable - No leukocytosis - Sputum cx, urine legionella and urine strep pneumonia pending - CXR 12/20: 1. Bibasilar chronic interstitial fibrosis. 2. Right lower lobe infiltrate. - c/w Ceftriaxone and Azithromycin (Day #4) - will complete outpatient course of antibiotics with Cefdinir / Azithromycin Symptomatic anemia - Patient had reported complaints of weakness and fatigue; however, has noted that this is improved today - s/p 2 units PRBC on 12/21/18 s/p Pancytopenia 2/2 chemotherapy and radiation - s/p Neupogen ; in order to get his ANC in the 1500 range. - s/p 2 units PRBC on 12/21/18 Radiation esophagitis - s/p IV hydration and TPN - s/p PEG tube placement on 12/06, with intermittent bolus feedings that are well tolerated - PEG tube site does not appear to reveal any significant degree or erythema / drainage - c/w Sucralfate and Desitin cream - c/w Dressing changes / wound care Hyponatremia - likely 09/08 chemotherapy 09/08 taxol - Has remained stable COPD - Currently does not appear to have any signs of exacerbation - c/w inhaled therapy as ordered Hx of PMM History of cancer of the soft palate - s/p Resection and radiation 2013 HTN - BP appears well controlled - c/w Metoprolol AAA - No changes - Will have outpatient f/u with PMD GERD / Peptic ulcer disease - c/w Famotidine / Sucralfate DVT prophylaxis - c/w Lovenox DISCHARGE MEDICATIONS: Please see below. ALLERGIES: Please see below. PHYSICAL EXAMINATION ON DISCHARGE: Vitals (See below) General: Lying in bed, no acute distress, comfortable, Awake / Alert / Oriented x3 HEENT: NC, AT CVS: RRR, +S1S2 Lungs: Fair air entry b/l, no evidence of wheezing, rales or rhonchi Abdomen: Soft, nondistended, without tenderness, + PEG tube Extremities: No evidence of edema, - Calf tenderness LABORATORY DATA: Please see below. ACTIVITY: [As tolerated]. DIET: Tube feeding DISCHARGE PLAN: Follow up with Dr. Menjivar, Dr. Wray and Dr. Bland within 7 days Remain compliant with treatment plan and medications Return to the ER if you experience any problems DISPOSITION: Home, Self-Care DISCHARGE CONDITION: [Stable]. TIME SPENT ON DISCHARGE: 37 minutes Vital Signs/I&Os Vital Signs Date Time Temp Pulse Resp B/P (MAP) Pulse Ox O2 Delivery O2 Flow Rate FiO2 12/23/18 07:31 112/70 (84) 12/23/18 06:00 97.0 115 16 95 I&O- Last 24 Hours up to 6 AM 12/23/18 06:00 Intake Total 780 ml Output Total 1675 ml Balance -895 ml Laboratory Data Labs 24H Laboratory Tests 2 12/22/18 21:02: Troponin I < 0.02 12/23/18 03:06: Troponin I < 0.02, Total Creatine Kinase 17L, Creatine Kinase MB < 1.0, Creatine Kinase MB Relative Index 5.88H 12/23/18 05:31: Immature Granulocyte % (Auto) 4.4H, White Blood Count 7.9, Red Blood Count 3.06L, Hemoglobin 9.0L, Hematocrit 27.9L, Mean Corpuscular Volume 91.2, Mean Corpuscular Hemoglobin 29.4, Mean Corpuscular Hemoglobin Concent 32.3, Red Cell Distribution Width 18.3H, Platelet Count 198, Neutrophils (%) (Auto) 74.9H, Lymphocytes (%) (Auto) 14.6L, Monocytes (%) (Auto) 5.7H, Eosinophils (%) (Auto) 0.1, Basophils (%) (Auto) 0.3, Neutrophils # (Auto) 6.0, Lymphocytes # (Auto) 1.2L, Monocytes # (Auto) 0.5, Eosinophils # (Auto) 0.0, Basophils # (Auto) 0.0, Nucleated Red Blood Cells % (auto) 0.0, Anion Gap 7L, Glomerular Filtration Rate > 60.0, Blood Urea Nitrogen 16, Creatinine 0.61L, Sodium Level 132L, Potassium Level 3.7, Chloride Level 98, Carbon Dioxide Level 27, Calcium Level 8.2L, Magnesium Level 2.0 CBC/BMP Laboratory Tests 12/23/18 05:31 Red Blood Count 3.06 L, Mean Corpuscular Volume 91.2, Mean Corpuscular Hemoglobin 29.4, Mean Corpuscular Hemoglobin Concent 32.3, Red Cell Distribution Width 18.3 H, Neutrophils (%) (Auto) 74.9 H, Lymphocytes (%) (Auto) 14.6 L, Monocytes (%) (Auto) 5.7 H, Eosinophils (%) (Auto) 0.1, Basophils (%) (Auto) 0.3, Neutrophils # (Auto) 6.0, Lymphocytes # (Auto) 1.2 L, Monocytes # (Auto) 0.5, Eosinophils # (Auto) 0.0, Basophils # (Auto) 0.0, Calcium Level 8.2 L Microbiology Microbiology 12/22/18 MRSA Screen, Received Pending 12/19/18 Wound Culture - Final, Complete Staphylococcus Aureus Discharge Medications Scheduled Azithromycin (Azithromycin) 200 Mg/5 Ml Susp.recon, 200 MG PO DAILY 7 day supply for 200mg daily Cefdinir (Cefdinir) 250 Mg/5 Ml Susp.recon, 5 ML PO BID Metoprolol Tartrate (Metoprolol Tartrate) 25 Mg Tablet, 6.25 MG PEG BID Ranitidine HCl (Ranitidine HCl) 150 Mg Tab, 1 TAB BID, (Reported) Sucralfate (Carafate) 1 Gm/10 Ml Oral.susp, 10 ML PO ACHS, (Reported) Scheduled PRN Ondansetron (Ondansetron Odt) 4 Mg Tab.rapdis, 4 MG PO Q8H PRN for NAUSEA, (Reported) Oxycodone/Acetaminophen (Oxycodone-Acetaminophen 5-325) 1 Each Tablet, 1 TAB PO Q8HP PRN for MILD/MODERATE PAIN (PS 1-7) Allergies Coded Allergies: No Known Allergies (Unverified , 03/27/18) RAIN KATE MD December 23, 2018 11:54
--- NOTE | 2018-12-25 09:44 | RADONC ---
RADIATION ONCOLOGY PROGRESS NOTE DATE: 12/24/2018 CHART NUMBER: [id number] Mr. Curry is thus far at a dose of 4800 cGy to his right lung and was last treated on 11/20/2018. We have been calling this patient on a daily basis to see if he wishes to reinitiate radiation. He has now been discharged from the hospital and, once again, we have called his house to see whether or not he wishes to restart. His son answered the phone and said the patient does not wish to restart radiation this week but may be willing to restart next week. I have given orders that we re-call his house on Monday this week and ask for a final decision by this patient on whether or not he wishes to restart radiation at all. We have now significantly interfered with the results of radiation, having been off now more than 6 weeks. The patient has been made aware of this loss of efficacy. Once again, we will contact this patient and his son on Monday and ask them for a final decision on whether or not we should close out his chart. In that case, of course, he can continue to follow with his other physicians.
== END 2018-12-23 09:48 | disposition home health service (06) | DRG 808 ==
LOC: M ED 16:02 → M ED INP 18:40 → M MSPAV 20:51
PROVIDERS: ADMIT Internal Medicine; ATTEND Internal Medicine
PROC: 0WHP33Z Insertion of Infusion Device into Gastrointestinal Tract, Percutaneous Approach (ICD-10-PCS; principal; 2018-11-23)
PROC: 02HV33Z Insertion of Infusion Device into Superior Vena Cava, Percutaneous Approach (ICD-10-PCS; 2018-11-23)
PROC: 30233N1 Transfusion of Nonautologous Red Blood Cells into Peripheral Vein, Percutaneous Approach (ICD-10-PCS; 2018-11-26)
PROC: 02HV33Z Insertion of Infusion Device into Superior Vena Cava, Percutaneous Approach (ICD-10-PCS; 2018-11-30)
PROC: 0DH64UZ Insertion of Feeding Device into Stomach, Percutaneous Endoscopic Approach (ICD-10-PCS; 2018-12-06)
DX: D61.810 Antineoplastic chemotherapy induced pancytopenia (principal); J15.6 Pneumonia due to other Gram-negative bacteria; J69.0 Pneumonitis due to inhalation of food and vomit; C34.31 Malignant neoplasm of lower lobe, right bronchus or lung; B37.0 Candidal stomatitis; E87.1 Hypo-osmolality and hyponatremia; E83.39 Other disorders of phosphorus metabolism; K20.8 Other esophagitis; I10 Essential (primary) hypertension; I71.4 Abdominal aortic aneurysm, without rupture; J44.9 Chronic obstructive pulmonary disease, unspecified; Z92.3 Personal history of irradiation; Z85.818 Personal history of malignant neoplasm of other sites of lip, oral cavity, and pharynx; Z79.899 Other long term (current) drug therapy; Z95.0 Presence of cardiac pacemaker; E86.0 Dehydration; Z66 Do not resuscitate; R19.7 Diarrhea, unspecified; E83.42 Hypomagnesemia; E83.51 Hypocalcemia; R13.10 Dysphagia, unspecified

== ENCOUNTER 2019-06-28 11:05 | Inpatient (IN) | payer MEDICARE ==
[~2019-06-28] VITALS: Ht 177.8 cm; Wt 58.3 kg
[2019-06-28] VITALS (19 sets, daily range): BP systolic 80–132; BP diastolic 50–72
[2019-06-28] MEDS: ENOXAPARIN 40 MG/0.4 ML SYRINGE (J1650) SC SCH (09:00)
[~2019-06-28 11:05] MED LIST changes: +AZIT200S30 PO; +CEFD250S26 PO; +DECA4TAB PO; +LOPE1CAP5 PO; +METO1TAB87 PEG; +PERCOCET PO; +RANI-356 PO; -RANI1TAB6 PO
[2019-06-28] MEDS ORDERED: PEPC40TA12 PEG (11:49)
[2019-06-28] MEDS ORDERED: HYDR-3716 PEG (11:49)
[2019-06-28] MEDS ORDERED: TAMS1CAP17 PEG (11:49)
[2019-06-28] MEDS ORDERED: DILT12SRCA PEG (11:49)
[2019-06-28] MEDS ORDERED: FINA5TAB2 PEG (11:49)
[2019-06-28] MEDS ORDERED: ALPR0.5T3 PEG ×2 (11:49→13:51)
[2019-06-28] MEDS ORDERED: ALBU8.5H INH (11:49)
[2019-06-28] MEDS ORDERED: NS 1,000 ML IV ONE (12:00)
--- NOTE | 2019-06-28 12:05 | REP ---
Portable chest x-ray: Single view. History: Shortness of breath. There is a history of lung carcinoma. Comparison chest x-ray: December 20, 2018. Comparison PET-CT study August 28, 2018. Findings: A bipolar pacemaker is seen in the right heart via the left side. Left lung remains clear. The left lateral pleural angle is excluded from the field of view. The right hemidiaphragm is elevated. There is a large area of opacity in the right base above the elevated right hemidiaphragm. There are bullous changes in the right apex. There is pleural thickening and some pleural fluid on the right. There is some shift of the mediastinum to the right. The findings are progressed considerably since the prior chest x-ray of December 20, 2018. Impression: Elevated right hemidiaphragm. Large area of increased pleuroparenchymal density in the right base. Bullous changes in the right apex. Pacemaker in place. No infiltrate noted on the left. Electronically Signed by Jonathan Lynn MD 06/28/2019 11:56 A
[2019-06-28 12:10] LABS: BASO % 0.8 % (0.0-1.0); EOS % 0.8 % (0.0-3.0); HEMATOCRIT 34.7 % (42.0-52.0); HEMOGLOBIN 10.7 g/dl (13.5-17.5); LYMPH # 0.9 10^3/uL (1.5-5.0); LYMPH % 24.7 % (24.0-44.0); MEAN CORPUSCULAR HGB CONC 30.8 g/dl (32.0-36.5); MEAN CORPUSCULAR VOLUME 107.1 fl (80.0-96.0); MONO # 0.2 10^3/uL (0.0-0.8); MONO % 5.7 % (0.0-5.0); NEUTROPHILS # 2.5 10^3/uL (1.5-8.5); NEUTROPHILS % 66.9 % (36.0-66.0); PLATELET COUNT, AUTOMATED 107 10^3/uL (150-450); RED BLOOD COUNT 3.24 10^6/uL (4.30-6.10); WHITE BLOOD COUNT 3.7 10^3/uL (4.0-10.0)
[2019-06-28 12:41] LABS: ALT/SGPT 17 U/L (12-78); BILIRUBIN,DIRECT 0.2 MG/DL (0.0-0.2); BILIRUBIN,TOTAL 0.6 MG/DL (0.2-1.0); BLOOD UREA NITROGEN 16 MG/DL (7-18); CALCIUM LEVEL 8.5 MG/DL (8.8-10.2); CARBON DIOXIDE LEVEL 27 MEQ/L (21-32); CHLORIDE LEVEL 105 MEQ/L (98-107); CK-MB VALUE MASS 1.2 NG/ML (<3.6); CPK CREATINE PHOSPHOKINASE 23 U/L (39-308); CREATININE FOR GFR 0.92 MG/DL (0.70-1.30); GLOMERULAR FILTRATION RATE > 60.0 (>42); GLUCOSE, FASTING 105 MG/DL (70-100); MB/CK RELATIVE INDEX 5.22 (< OR =4); POTASSIUM SERUM 4.1 MEQ/L (3.5-5.1); SODIUM LEVEL 140 MEQ/L (136-145); TOTAL PROTEIN 6.2 GM/DL (6.4-8.2); TROPONIN I < 0.02 NG/ML (< 0.10)
--- NOTE | 2019-06-28 13:14 | ECGEPIP ---
[facility] - ED Test Date: 2019-06-28 Pat Name: RONALD ARORA Department: Room: - Gender: Male [employer] Interference Supervisor: PMO : 1940 Requested By: John Bustillos Order Number: [id number] Reading MD: April Nicolas Measurements Intervals [place] Rate: 102 P: 269 [place]: 213 QRS: 144 QRSD: 79 T: 72 QT: 348 QTc: 454 Interpretive Statements ECTOPIC ATRIAL TACHYCARDIA WITH FIRST DEGREE AV BLOCK POSSIBLE RIGHT VENTRICULAR HYPERTROPHY DELAYED R PROGRESSION LOW VOLTAGE LIMB DECREASED RATE 12/22/18 Electronically Signed on 06-28-2019 13:14:49 EST by April Nicolas
--- NOTE | 2019-06-28 13:23 | REP ---
CT chest without contrast: History: Right lower lobe mass/infiltrate. Comparison is made with today's chest x-ray. Comparison chest CT study is PET/CT exam from September 02, 2018. CT findings: There is a moderate to large amount of right pleural fluid. There is fibrosis, volume loss and bronchiectasis in the distribution of the right middle lobe and lower lobe. There are bullous changes in the apex of the right lung. There is some fibrosis in the distribution of the upper lobe region. The left lung shows mild emphysematous change but is clear. In the left lower lobe there is some pleuroparenchymal opacity which is new from the August 28, 2018 study. This appears to be pleuroparenchymal reaction or atelectasis. The left lung is otherwise clear. No mediastinal or hilar mass or adenopathy is observed. Vascular calcification is noted. There is a small amount of pericardial fluid. No adrenal lesion is seen. There is opaque material in the dependent portion of the gallbladder consistent with cholelithiasis. The stent is noted in the abdominal aorta and a gastrostomy tube is visible. Impression: Moderate to large right pleural effusion. Post-treatment changes right middle lobe, lower lobe, and upper lobe. Emphysema. Small amount of pericardial effusion. A small zone of pleuroparenchymal opacity left base. Question fibro-atelectasis. Cholelithiasis. G tube. Abdominal aortic stent graft. Cardiac pacemaker. Electronically Signed by Jonathan Lynn MD 06/28/2019 02:13 P
[2019-06-28] MEDS ORDERED: JEVILIQ7 PEG (13:51)
[2019-06-28] MEDS ORDERED: BENA25CA4 PEG (13:51)
[2019-06-28] MEDS ORDERED: GUAI100L6 PEG (13:51)
[2019-06-28] MEDS ORDERED: DOCU-129 PEG (13:51)
[2019-06-28] MEDS ORDERED: METO1TAB7 PEG (13:51)
[2019-06-28] MEDS ORDERED: ANEXSIA, NORCO 7.5MG/325MG TABLET(HYDROCODONE/APAP) PEG PRN (14:15)
[2019-06-28] MEDS ORDERED: FAMOTIDINE 20 MG TAB PEG PRN (14:15)
[2019-06-28] MEDS ORDERED: DOCUSATE SODIUM 100 MG CAP PO PRN (14:15)
[2019-06-28] MEDS ORDERED: guaiFENesin SYRUP 200 MG/10 ML UDC PEG PRN (14:15)
[2019-06-28] MEDS ORDERED: diphenhydrAMINE 25 MG CAP PEG PRN (14:15)
[2019-06-28] MEDS ORDERED: ONDANSETRON 4 MG ORAL DISINTEGRATING TAB (Q0162 PER 1MG) PO PRN (14:15)
[2019-06-28] MEDS ORDERED: ACETAMINOPHEN TAB 650MG DOSE (2X325MG) PO PRN (14:30)
--- NOTE | 2019-06-28 14:57 | HPE ---
DATE OF ADMISSION: 06/28/2019 PRIMARY CARE PHYSICIAN: Dr. Ermelinda Menjivar MD ONCOLOGIST: [facility] hematology/oncology (previously Dr. Danielle Wray). RADIATION ONCOLOGIST: Dr. Fitz Torres MD CHIEF COMPLAINT: Dizziness, generalized weakness, unexplained weight loss. 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 He underwent radiation therapy, 24 sessions over 35 days, 10/23 - 11/23. He did not want any further treatment and he was followed by Dr. Wray, last seen on 01/18/2019. Again, no treatment desired by the patient. He presents with "dizziness" which is essentially generalized weakness. When he tries to stand he feels, weak, dizzy, and like his legs are getting weak. He came to the emergency room, CT scan of the chest showed moderate to large right pleural effusion, post treatment changes right middle lobe, lower lobe and upper lobe as well as some emphysema, small pericardial effusion. He is being admitted for further evaluation. PAST MEDICAL HISTORY: Shows: Oral cancer status post radiation therapy. Hypertensive heart disease. 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 Benign prostatic hypertrophy (BPH). Gastroesophageal reflux disease (GERD) with presumed esophagitis. SURGICAL HISTORY: Pacemaker. Diverticulitis with perforation requiring partial colectomy with a colostomy followed by reversal. Intravascular for an Abdominal aortic aneurysm. FAMILY HISTORY: Brother had lung cancer. Mother brain aneurysm. SOCIAL HISTORY: : He quite smoking 5 years ago 100 pack years, no alcohol. REVIEW OF SYSTEMS: He has unexplained weight loss. Denies fevers or chills. Denies hemoptysis, rectal bleeding or urinary bleeding. He does not have any whirling vertigo, tinnitus, or diplopia. HOME MEDICATIONS: - albuterol inhaler - Xanax 0.5 mg per PEG tube daily as needed - Benadryl 25 mg four times a day as needed - Colace 100 mg daily - Pepcid 40 mg daily as needed - finasteride 5 mg daily - guaifenesin 25 mL by PEG twice a day as needed congestion - [place] 7.5/325 four times a day as needed for pain - Toprol XL 50 mg daily - Zofran 4 mg every 8 hours as needed - tamsulosin 0.4 mg at bedtime - diltiazem ER 120 mg every 12 hours - Jevity 240 mL four times a day ALLERGIES: None known. PHYSICAL EXAMINATION: 95/64, pulse of 133, respiratory rate 24, 96% oxygen saturation. General appearance: Chronically ill appearing, lying in bed, no distress. Pupils equal, round, reactive to light. Tympanic membranes and oropharynx benign. Ulcerated lesion right side of nose suspicious for basal cell carcinoma. Oropharynx shows dry mucous membranes. Neck supple. Lungs decreased breath sounds dull to percuss on the right. Few wheezes on the left. Heart regular rhythm without murmur. Abdomen soft, nontender. No masses. Extremities no clubbing, cyanosis, or edema. Moves arms and legs with equal strength. LABS: White count 3.7 with 67% neutrophils, hemoglobin 10.7 which is up from 9.0 on 12/23/2018. MCV is 107, platelets are 107. Sodium 140, potassium 4.1, BUN 6, creatinine 0.9, glucose 105. CT of the chest showed a large right pleural effusion, otherwise as above. EKG showed sinus tachycardia with some PACs. No change from previous. IMPRESSION: 1. Generalized weakness, suspect from the advancing cancer and large right pleural effusion. The patient will be admitted to a medical bed. Will arrange thoracentesis. He has a previous established Medical Order for Life-Sustaining Treatment (MOLST) with DO NOT RESUSCITATE. Trial of noninvasive ventilation, DO NOT INTUBATE. Trial of tube feeding and IV fluids (patient already has a G-tube in place). 2. Hypotension. Will hold his diltiazem and metoprolol. Rehydrate him and restart when blood pressure allows. 3. Macrocytosis. Check B12, folate, free T4, TSH. 4. Squamous cell carcinoma of the lung, stage IIIB previously probably now stage IV. He has declined further treatment including radiation and chemotherapy. Prognosis is poor. After his acute problem is dealt with, will discuss palliative care and possible hospice referral.
[2019-06-28] MEDS: KCL 20MEQ in NS 1000ML 1,000 ML IV SCH (15:34)
[2019-06-28] MEDS ORDERED: FLUMAZENIL 0.5 MG/5 ML VIAL As Ordered ONE (16:30)
[2019-06-28] MEDS ORDERED: MIDAZOLAM INJ 2 MG/2 ML VIAL (J2250) As Ordered ONE ×2 (16:30→16:31)
[2019-06-28] MEDS ORDERED: LIDOCAINE 1% MDV 20ML VIAL As Ordered ONE (16:31)
--- NOTE | 2019-06-28 16:39 | CR ---
DATE OF CONSULTATION: 06/28/2019 The patient was seen at the request of Dr. Cedeño for increasing shortness of breath accompanied by increasing pleural effusion. 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 He tells me that he underwent chemotherapy but medical record states that he declined chemotherapy. He had radiation therapy of 4800 cGy in the spring of last year. He developed dehydration and difficulty swallowing. The radiation was stopped and he had a G tube placed. He also tells me that about 5 years ago he also had head and neck cancer for which he underwent radiation therapy and developed severe oral and esophageal thrush, which did not overly affect his eating. That occurred in 2013. In 2016, he perforated his bowel and underwent a sigmoid colectomy with a colonoscopy. Perforation was secondary to diverticulitis. He has also undergone a pacemaker. These past few weeks he has gotten weaker and dizzy to the extent that he has trouble standing up. He has increasing malaise and has not been able to get out of bed for the last few days. Accompanying this malaise and generalized weakness has been increasing shortness of breath over the last few days while lying in bed at a rest. He has a cough with yellow sputum production but denies fevers, chills or sweats. CT scan done today shows a very large right sided pleural effusion superimposed upon radiation changes and damage to the right lung. PAST MEDICAL HISTORY: 1. The above head and neck cancer. 2. Diverticulitis now with continuity reestablished. 3. Hypertensive heart disease. 4. Bradycardia with a pacemaker. 5. Benign prostatic hypertrophy (BPH). 6. Gastroesophageal reflux disease (GERD). PAST SURGICAL HISTORY: 1. Pacemaker. 2. Colectomy with colostomy, colostomy take down and reanastomosis. 3. Abdominal aortic aneurysm repaired with minimally invasive endovascular techniques. MEDICATIONS: - albuterol sulfate two puffs four times a day as needed for wheezing - alprazolam 0.5 mg via percutaneous endoscopic gastrostomy (PEG) tube daily and as needed anxiety - diltiazem 120 mg extended release daily - Benadryl 25 mg four times a day as needed for pruritus - Pepcid 40 mg daily - finasteride 40 mg daily - guaifenesin 25 mg twice a day as needed for congestion - Vicodin 7.5/325 mg four times a day as needed for pain - metoprolol 50 mg daily - Zofran 4 mg every 8 hours as needed for nausea - tamsulosin 0.4 mg at night All medications are given via his PEG tube. HABITS: Smoked between 2 and 2-1/2 packs per day until 5 years ago when he was diagnosed with head and neck cancer. Until 5 years ago, drank numerous beers per day but has not drank for the last 5 years. No illicit drugs. 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 He does not think that he has had asbestos exposure. No tuberculosis exposure. OTHER EXPOSURES: He has one dog, yellow lab at home. No birds or cats. TRAVEL HISTORY: None outside [place], in fact none outside of [place]. REVIEW OF SYSTEMS: CONSTITUTIONAL: Denies fevers, chills or sweats, but does have weight loss. EYES: Without diplopia. Has had cataracts. Without amaurosis fugax. NOSE: Without epistaxis. MOUTH: He is now edentulous secondary to preradiation treatment of his head and neck cancer 5 years ago. No longer wears dentures. PULMONARY: See history of present illness. CARDIAC: See history of present illness. Denies orthopnea or paroxysmal nocturnal dyspnea up until the last couple of days where he does have a hospital bed and elevates it. Denies myocardial infarction. He has a pacemaker for bradycardia. Without intermittent claudication. GASTROINTESTINAL: Without present nausea, vomiting, diarrhea, constipation, melena, hematochezia or hematemesis. GENITOURINARY: Without dysuria or hematuria. No history of renal stones. ENDOCRINE: Without diabetes. Without thyroid disease. NEUROLOGIC: Without paresthesias, paralysis or seizures. Without prolonged bleeding times. PSYCHIATRIC: Without pathological anxiety, depression, or psychoses. PHYSICAL EXAMINATION: Well developed, underweight, white male, almost cachectic, in mild respiratory distress with shortness of breath. VITAL SIGNS: Heart rate 82, regular rate and rhythm. Blood pressure is 115/55. He is 97% saturated with a respiratory rate of 22. EYES: Pupils are equal, round and reactive to light. Extraocular muscles intact. Sclerae nonicteric. Conjunctivae look pale. NOSE: Without deformity. MOUTH: Mucous membranes are pink and moist. Lips and commissures without lesions. There is no thrush. He is edentulous. NECK: Supple. There is no jugular venous distention (JVD) or subcutaneous emphysema. Trachea is midline. LUNGS: Markedly decreased breath sounds in the right lower hemithorax with E/A egophony. He has a dull percussion note. His left side shows some scattered rhonchi, most of which clear with coughing. Percussion note is full to the diaphragm on the left. CARDIAC: Without murmurs, clicks, gallops or rubs. I cannot feel his point of maximum impulse (PMI). S1, S2 are normal. ABDOMEN: Soft and nontender. Bowel sounds positive. He does have a ventral hernia. There is no hepatosplenomegaly and no costovertebral angle tenderness. EXTREMITIES: No pretibial edema. No calf tenderness. No differential swelling of the upper extremities. SKIN: Warm, dry and perfused without cyanosis or mottling, including that of the nailbeds and knees. NEUROLOGIC: II through XII intact. Gross motor and gross sensation intact. Gait is not tested. PSYCHIATRIC: Awake, alert, oriented times three. Appropriate mood and affect and conversational. LABORATORY DATA: His white count today is 3.7 with hemoglobin and hematocrit of 10.7 and 34.7 with a platelet count of 107. Differential shows 66% neutrophils, 24% lymphocytes, 5% monocytes. There are no immature forms and no toxic granulations. Chemistries today show normal electrolytes with a BUN and creatinine of 16 and 0.92, glucose of 105 and a calcium of 8.5. AST and ALT are normal. Troponin is less than 0.02. His albumin is 3.0. No chest x-ray is done. His CT scan done today shows a large right pleural effusion. He has destroyed middle and partial upper lobe of the lung from radiation. The study is done without contrast and I really do not see compressed lung underneath the pleural effusion. He has a very, very small rim of a pericardial effusion. I do not see paratracheal or mediastinal lymphadenopathy. There are some additional nodules in the left lower lobe now. These look spiculated. There are two in number. IMPRESSION: 1. Stage III B lung cancer. 2. Shortness of breath. 3. Generalized weakness. 4. Moderate to large pleural effusion. 5. Hypertension. 6. Benign prostatic hypertrophy (BPH). 7. Gastroesophageal reflux disease (GERD). 8. History of head and neck cancer, status post radiation. PLAN/DISCUSSION: I will place a chest tube with the hope that I can reexpand the lung that I actually do not see on the CT scan and improve his shortness of breath. We will send for the requisite studies, including hematology, chemistry, cytology, and bacteriology. I suspect that this is going to return agent airport to be a malignant effusion, although it could be a serositis from his radiation therapy.
[2019-06-28] MEDS ORDERED: KETOROLAC 30 MG/ML VIAL (J1885) As Ordered ONE (17:10)
[2019-06-28] MEDS ORDERED: KETOROLAC 30 MG/ML VIAL (J1885) IV ONE (17:15)
[2019-06-28] MEDS ORDERED: LEVALBUTEROL 1.25 MG/0.5 ML CONCENTRATE NEB NEB PRN (17:30)
[2019-06-28] MEDS ORDERED: MORPHINE 2 MG/ML 1ML VIAL (J2270) IV ONE (17:30)
[2019-06-28] MEDS ORDERED: PERCOCET 5MG/325MG TAB PO PRN ×2 (17:30)
[2019-06-28 17:46] LABS: LDH LACTATE DEHYDROGENASE 125 U/L (87-241)
[2019-06-28 18:29] LABS: INR 1.21
[2019-06-28 18:30] LABS: PARTIAL THROMBOPLASTIN TIME 33.2 SECONDS (25.0-38.4)
[2019-06-28] MEDS ORDERED: LIDOCAINE 1% MDV 20ML VIAL SC ONE (18:30)
[2019-06-28] MEDS ORDERED: MIDAZOLAM INJ 2 MG/2 ML VIAL (J2250) IV ONE (18:30)
[2019-06-28 18:39] LABS: SOURCE, BODY FLUID pH PLEURAL
[2019-06-28 19:05] LABS: SOURCE, BODY FLUID PLEURAL
[2019-06-28 19:06] LABS: APPEARANCE, BODY FLUID HAZY (CLEAR); PLEURAL FL COLOR YELLOW (COLORLESS)
[2019-06-28 19:14] LABS: AMYLASE, BODY FLUID 36 U/L (NOT ESTABLISHED); CHOLESTEROL, BODY FLUID 63 MG/DL (NOT ESTABLISHED); LDH, BODY FLUID 100 U/L (NOT ESTABLISHED); SOURCE, BODY FLUID ALBUMIN PLEURAL; SOURCE, BODY FLUID AMYLASE PLEURAL; SOURCE, BODY FLUID CHOL PLEURAL; SOURCE, BODY FLUID GLUCOSE PLEURAL; SOURCE, BODY FLUID LDH PLEURAL; SOURCE, BODY FLUID TOT PROTEIN PLEURAL; SOURCE, BODY FLUID TRIG PLEURAL; TOTAL PROTEIN, BODY FLUID 4.5 G/DL (NOT ESTABLISHED); TRIGLYCERIDE, BODY FLUID 23 MG/DL (NOT ESTABLISHED)
[2019-06-28] MEDS: LEVALBUTEROL 1.25 MG/0.5 ML CONCENTRATE NEB NEB SCH (20:05)
[2019-06-28] MEDS ORDERED: TAMSULOSIN 0.4 MG CAP PO SCH (21:00)
[2019-06-28] MEDS: KETOROLAC 30 MG/ML VIAL (J1885) IV SCH (22:08)
[2019-06-29] VITALS (7 sets, daily range): BP systolic 86–115; BP diastolic 50–60
[2019-06-29] MEDS: KCL 20MEQ in NS 1000ML 1,000 ML IV SCH ×3 (00:19→16:42)
[2019-06-29] MEDS: LEVALBUTEROL 1.25 MG/0.5 ML CONCENTRATE NEB NEB SCH ×4 (01:58→19:51)
[2019-06-29] MEDS: KETOROLAC 30 MG/ML VIAL (J1885) IV SCH ×4 (05:57→23:00)
[2019-06-29 06:01] LABS: ABG BASE EXCESS -2.2 (-2.0-2.0); ABG HCO3 21.1 MEQ/L (22.0-26.0); ABG O2 SATURATION 98.8 % (95.0-99.0); ABG PARTIAL PRESSURE CO2 30.6 mmHg (35.0-45.0); ABG PARTIAL PRESSURE O2 140.7 mmHg (75.0-100.0); ABG STANDARD HCO3 22.7 MEQ/L (22.0-26.0); ABG pH (ARTERIAL) 7.456 UNITS (7.350-7.450)
[2019-06-29 06:22] LABS: HEMATOCRIT 29.4 % (42.0-52.0); HEMOGLOBIN 9.1 g/dl (13.5-17.5); MEAN CORPUSCULAR HEMOGLOBIN 32.9 pg (27.0-33.0); MEAN CORPUSCULAR VOLUME 106.1 fl (80.0-96.0); PLATELET COUNT, AUTOMATED 112 10^3/uL (150-450); RED BLOOD COUNT 2.77 10^6/uL (4.30-6.10); WHITE BLOOD COUNT 3.6 10^3/uL (4.0-10.0)
[2019-06-29 06:37] LABS: BLOOD UREA NITROGEN 18 MG/DL (7-18); CARBON DIOXIDE LEVEL 24 MEQ/L (21-32); CHLORIDE LEVEL 113 MEQ/L (98-107); CREATININE FOR GFR 0.74 MG/DL (0.70-1.30); GLOMERULAR FILTRATION RATE > 60.0 (>42); GLUCOSE, FASTING 98 MG/DL (70-100); POTASSIUM SERUM 4.1 MEQ/L (3.5-5.1); SODIUM LEVEL 142 MEQ/L (136-145)
--- NOTE | 2019-06-29 07:24 | REP ---
PORTABLE CHEST: HISTORY: Status post chest tube insertion. COMPARISON: Multiple, the latest 06/28/2019. The technique utilized in obtaining the radiograph has magnified the cardiac silhouette and accentuated the interstitial markings. Since the last examination, right side thoracotomy tube has been placed. The right-sided CP angle blunting has decreased as have the patchy right lower lobe opacities when compared to the prior exam. There is no change in the cardiomediastinal silhouette. There is cardiomegaly and thoracic aortic ectasia exaggerated by technique. The left lung is unchanged. The osseous structures are unchanged. The dual chamber bipolar pacemaker device is unchanged. IMPRESSION: Right-sided chest tube insertion with improvement in the right lung as described above. Electronically Signed by Honorio Puente DO 06/29/2019 09:21 A
[2019-06-29] MEDS ORDERED: FINASTERIDE 5 MG TAB PEG SCH (09:00)
[2019-06-29] MEDS ORDERED: PANTOPRAZOLE 40MG TAB (PROTONIX) PO SCH (09:00)
--- NOTE | 2019-06-29 09:08 | REP ---
HISTORY: Followup. COMPARISON: 06/28/2019 Cardiomediastinal silhouette is unchanged. Dual chamber bipolar pacemaker device is unchanged. Right sided thoracotomy tube unchanged. Right lower lobe patchy opacity is unchanged. No new abnormal opacities. Small right pneumothorax, status quo. IMPRESSION: No significant change. Electronically Signed by Honorio Puente DO 06/29/2019 09:24 A
[2019-06-29] MEDS: ENOXAPARIN 40 MG/0.4 ML SYRINGE (J1650) SC SCH (10:02)
--- NOTE | 2019-06-29 10:41 | IPN ---
DATE: 06/29/2019 Ben is seen in progressive care unit (PCU). He has just returned from getting his x-ray and he is winded and tired and currently not very communicative today. He says he is less short of breath than yesterday. We did verify his code status which is unchanged from the copy on the chart, which is DO NOT RESUSCITATE, a trial of noninvasive ventilation. He is already being tube-fed receiving IV fluids. I spoke with Dr. Howell and the pleural effusion looks to be transudate. At this point it could be a serositis related to his radiation therapy as opposed to a malignant effusion. PHYSICAL EXAMINATION: Blood pressure 86/50, pulse 100, respiratory rate 18, 98% on room air. General appearance: He is chronic ill-appearing, pale. HEENT: Unremarkable. No jugular venous distention (JVD). Lungs have better breath sounds on the right. No air leak in the chest tube. Heart: Regular rhythm. Abdomen soft, nontender. No peripheral edema. LABS: White count 3.6, hemoglobin 9.1, platelets 112. Sodium 142, potassium 4.1, BUN 18, creatinine 0.7, glucose 90. IMPRESSION: 1. Pleural effusion: Pathology pending. Chest tube management by Dr. Howell. 2. Hypotension: He is receiving IV fluids and tube feedings. 3. History of benign prostatic hypertrophy: No urinary obstruction currently. Continue his finasteride. Encourage ambulation. 4. Stage III B squamous cell carcinoma of the lung: He has declined chemotherapy. He had to terminate radiation therapy prematurely due to esophagitis. Reaffirmed his code status. Will consider consulting palliative care on Monday. I was going to discuss this with him further today but he is in no mood for further discussions this morning.
[2019-06-29] MEDS: PANTOPRAZOLE 40MG INJ (PROTONIX) (C9113) IV SCH (11:35)
--- NOTE | 2019-06-29 11:46 | IPN ---
DATE: 06/29/2019 This is the first day status post placement of chest tube on Mr. Curry. After placement of the chest tube, he could breathe a lot better. He did go down to chest x-ray this morning and is now out of breath. His vital signs show a T-max of 97.8 with a heart rate that ranges between 96 and 125, in a sinus rhythm. Respiratory rate 16 to 18 without the use of accessory muscles, but now sitting at the side of the bed about 22 to 24. He is 96 to 98% saturated on room air. His blood pressure is ranging between 106/62 to 86/50. His intake and output over the past 24 hours has been recorded as 1000 in and 2660 out for a negativity of 1660 mL. He has put 680 mL out the chest tube overnight in addition to the 1800 mL that was initially eluded from the chest tube upon insertion. Weight today is 57.5 kg compared to 55.5 kg yesterday. PHYSICAL EXAMINATION: He has a succussion splash on the right side with underlying coarse rhonchi. Left side shows also some underlying coarse rhonchi which are not clearing with coughing. Percussion note is full to the diaphragm on both sides. Cardiac exam is without murmurs, clicks, gallops or rubs. I cannot feel his point of maximal impulse (PMI). S1 and S2 are normal. Abdomen is soft and nontender. Bowel sounds are positive. There is no hepatomegaly. No costovertebral angle (CVA) tenderness. Extremities show no pretibial edema. No calf tenderness. No differential swelling of the upper extremities. Skin is warm, dry and perfused without cyanosis or mottling including that of the nail beds and the knees. Neck is supple. There is no jugular venous distention. No subcutaneous emphysema. Trachea is midline. Mouth shows his mucous membranes to be pink and moist. Lips and commissures without lesions. There is no thrush. Eyes show his pupils to be equal and reactive. Extraocular muscles intact. Sclera anicteric. Neuro shows II through XII intact. Gross motor and gross sensation intact. Gait is also intact. Psychiatric shows him to be awake, alert and oriented times three with appropriate mood, affect and conversational. His white count today is 3.6 with a hemoglobin and hematocrit of 9.1 and 29.4 down from 10.7 and 34.7 yesterday. Platelet count is 112 and stable. There is no differential. His electrolytes are essentially normal with a BUN and creatinine of 18 and 0.74 with a glucose of 98 and a calcium of 8.0. Blood gases today show a pH of 7.46, a pCO2 of 30 and a pO2 of 140 with a base excess of -2.2. His chest x-ray today shows resolution of the large amount of fluid, however, there looks to be an air fluid level on the lateral film half way up. I do not quite see it on the PA film except at the very edge. There is an air space in the cupula of the lung measuring about 1.7 cm. He has radiation changes to the lower lobe on the right side and volume loss. IMPRESSION: 1. Stage IIIB squamous cell carcinoma, status post radiation therapy. 2. Pleural effusion. See discussion below. 3. Shortness of breath. Resolving. 4. Fatigue and generalized weakness. 5. Hypertension. 6. Benign prostatic hypertrophy (BPH). 7. Gastroesophageal reflux disease (GERD). 8. History of head and neck cancer, status post radiation. 9. Dependence on PEG tube for feeding. PLAN AND DISCUSSION: It should be noted that his pleural effusion analysis has come back with 560 white cells, 98% of which are lymphocytes. His glucose is 88 and LDH is 100 with a corresponding serum LDH of 125. Therefore the ratio of fluid LDH to serum LDH is greater than 0.06 and I would have to call this mildly exudative and lymphocytic. I suspect this is going to turntable engineer to be malignant. Pathology is pending. Microbiology did not show any organisms on gram stain. I will continue his chest tube and in fact increase his suction to 40 to see if I can expand the lung field to the chest wall. We will await pathology. Medical service is going to further hydrate him and give him tube feedings.
[2019-06-29] MEDS: ALPRAZolam 0.5 MG TAB PEG PRN (23:30)
[2019-06-30] VITALS: BP 101/74
[2019-06-30] MEDS: KCL 20MEQ in NS 1000ML 1,000 ML IV SCH ×4 (00:27→18:15)
[2019-06-30] MEDS: KETOROLAC 30 MG/ML VIAL (J1885) IV SCH ×5 (00:31→23:53)
[2019-06-30] MEDS: LEVALBUTEROL 1.25 MG/0.5 ML CONCENTRATE NEB NEB SCH ×4 (02:00→19:32)
[2019-06-30 04:00] VITALS: BP 102/62
[2019-06-30 04:49] LABS: HEMATOCRIT 28.4 % (42.0-52.0); HEMOGLOBIN 8.6 g/dl (13.5-17.5); MEAN CORPUSCULAR HGB CONC 30.3 g/dl (32.0-36.5); MEAN CORPUSCULAR VOLUME 108.8 fl (80.0-96.0); RED BLOOD COUNT 2.61 10^6/uL (4.30-6.10); WHITE BLOOD COUNT 2.6 10^3/uL (4.0-10.0)
[2019-06-30 05:06] LABS: BLOOD UREA NITROGEN 13 MG/DL (7-18); CALCIUM LEVEL 7.6 MG/DL (8.8-10.2); CARBON DIOXIDE LEVEL 23 MEQ/L (21-32); CHLORIDE LEVEL 116 MEQ/L (98-107); CREATININE FOR GFR 0.64 MG/DL (0.70-1.30); GLOMERULAR FILTRATION RATE > 60.0 (>42); GLUCOSE, FASTING 102 MG/DL (70-100); POTASSIUM SERUM 4.2 MEQ/L (3.5-5.1); SODIUM LEVEL 144 MEQ/L (136-145)
[2019-06-30 05:14] LABS: PLATELET COUNT, AUTOMATED 99 10^3/uL (150-450)
[2019-06-30 08:00] VITALS: BP 105/67
[2019-06-30] MEDS: ENOXAPARIN 40 MG/0.4 ML SYRINGE (J1650) SC SCH (09:30)
--- NOTE | 2019-06-30 10:15 | REP ---
REASON: Followup. Cardiomediastinal silhouette is unchanged. The pacemaker device is unchanged. The lung [place] are unchanged. Bibasilar opacities status quo. Right lower lobe opacities status quo. Chest tube is unchanged. Small right pneumothorax unchanged. IMPRESSION: No change. Electronically Signed by Honorio Puente DO 06/30/2019 11:42 A
[2019-06-30] MEDS: PANTOPRAZOLE 40MG INJ (PROTONIX) (C9113) IV SCH (11:17)
--- NOTE | 2019-06-30 11:28 | IPN ---
DATE: 06/30/2019 There is really no change for Ben. He put out 900 mL from his chest tube yesterday. Case was discussed with Dr. Howell and he plans a PleurX catheter. Pathology is still pending. PHYSICAL EXAMINATION: Afebrile. Vital signs stable. Systolic pressure around 100. Telemetry showed sinus tachycardia, no atrial arrhythmias. Chronically ill-appearing. LUNGS: Decreased breath sounds on the right, clear on the left. HEART: Regular rhythm. ABDOMEN: Soft, nontender. LABORATORIES: White count 2.6, hemoglobin 8.6, platelets 99. Electrolytes unremarkable. IMPRESSION AND PLAN: 1. Pleural effusion. Plan is per Dr. Howell. He has pulled the chest tube and the plan is to let the effusion reaccumulate so he can place a PleurX catheter. 2. Stage III B squamous cell carcinoma, status post radiation therapy. He was previously followed by Dr. Wray at [facility]. Waiting for the results of his pathology. 3. Dependence on tube feedings. His tube feedings were adjusted yesterday. Dietitian recommended changing tube feedings to 2-Lazaro 240 mL four times a day with 120 mL flush pre and post bolus, which would provide more than 90% of caloric needs, 100% of protein needs.
[2019-06-30 12:00] VITALS: BP 117/63
[2019-06-30 16:00] VITALS: BP 109/64
[2019-06-30] MEDS ORDERED: BACITRACIN OINT 30GM TOP PRN (19:15)
[2019-06-30 20:00] VITALS: BP 126/74
[2019-06-30] MEDS: ALPRAZolam 0.5 MG TAB PEG PRN (21:07)
[2019-07-01] VITALS (7 sets, daily range): BP systolic 114–131; BP diastolic 66–74
[2019-07-01] MEDS: LEVALBUTEROL 1.25 MG/0.5 ML CONCENTRATE NEB NEB SCH ×4 (02:00→18:31)
[2019-07-01] MEDS: KCL 20MEQ in NS 1000ML 1,000 ML IV SCH ×2 (02:11→15:07)
[2019-07-01] MEDS: KETOROLAC 30 MG/ML VIAL (J1885) IV SCH ×4 (05:23→22:21)
[2019-07-01 08:01] LABS: BLOOD UREA NITROGEN 10 MG/DL (7-18); CALCIUM LEVEL 7.8 MG/DL (8.8-10.2); CARBON DIOXIDE LEVEL 23 MEQ/L (21-32); CHLORIDE LEVEL 114 MEQ/L (98-107); CREATININE FOR GFR 0.62 MG/DL (0.70-1.30); GLOMERULAR FILTRATION RATE > 60.0 (>42); GLUCOSE, FASTING 95 MG/DL (70-100); POTASSIUM SERUM 4.6 MEQ/L (3.5-5.1); SODIUM LEVEL 141 MEQ/L (136-145)
--- NOTE | 2019-07-01 08:22 | REP ---
Chest x-ray: Two views. History: Pleural effusion. Comparison chest x-ray June 30, 2019, June 29, 2019, and the chest CT findings from June 28, 2019. Findings: The right chest tube has been removed in the interval since the previous day's radiograph. There is a right-sided hydropneumothorax. The amount of pleural air is somewhat increased. There are multiple small air-fluid levels are cavitary changes in opacified right lung suggesting necrotizing pneumonia in the right base. There is overall volume loss in the right hemithorax as before. There is minimal linear fibrosis in the left base. No left lung infiltrate is seen. Pacemaker remains in place via the left side with intact right heart leads. Mild cardiomegaly. Impression: Some increase in the size of the right-sided pneumothorax/hydropneumothorax post chest tube removal. Findings consistent with necrotizing pneumonia in the right base. Electronically Signed by Jonathan Lynn MD 07/01/2019 08:14 A
[2019-07-01 08:45] LABS: HEMATOCRIT 29.6 % (42.0-52.0); HEMOGLOBIN 8.8 g/dl (13.5-17.5); MEAN CORPUSCULAR HEMOGLOBIN 32.7 pg (27.0-33.0); MEAN CORPUSCULAR HGB CONC 29.7 g/dl (32.0-36.5); RED BLOOD COUNT 2.69 10^6/uL (4.30-6.10); WHITE BLOOD COUNT 3.3 10^3/uL (4.0-10.0)
[2019-07-01 08:48] LABS: PLATELET COUNT, AUTOMATED 99 10^3/uL (150-450)
[2019-07-01] MEDS: ENOXAPARIN 40 MG/0.4 ML SYRINGE (J1650) SC SCH (08:53)
[2019-07-01] MEDS ORDERED: **NOTE PATIENT COMMENT** MISC XX SCH (10:15)
--- NOTE | 2019-07-01 10:27 | IPN ---
DATE: 06/30/2019 Mr. Curry is feeling a bit better today. He did go down to chest x-ray. He has put out considerable amount of the chest tube of 930 mL. Pathology is of course still pending being the weekend. His vital signs show a maximum temperature (t-max) of 98.8 with a heart rate that ranges between 101 and 113 in a sinus tachycardia, blood pressure of 126/74 to 101/74 with a respiratory rate of 16 to 18 without the use of accessory muscles, who is 97 to 98% saturated on 1 liter nasal cannula but without the use of accessory muscles. PHYSICAL EXAMINATION: LUNGS: He has loud crackles and rhonchi with a succussion splash on the right side. Left side shows mild rhonchi, most of which clears with coughing. Percussion note is full to the diaphragm on the right and the left. CARDIAC EXAM: Without murmurs, clicks, gallops or rubs. I cannot feel his point of maximum impulse (PMI). S1, S2 are normal. ABDOMEN: Soft, nontender. Bowel sounds positive. There is no hepatomegaly. No costovertebral angle tenderness. EXTREMITIES: Show no pretibial edema. No calf tenderness. No differential swelling of the upper extremities. SKIN: Warm, dry and perfused without cyanosis or mottling, including that of the nail beds and knees. NECK: Supple. There is no jugular venous distention. No subcutaneous emphysema. Trachea is midline. MOUTH: Shows his mucous membranes to be pink and moist. Lips and commissures without lesions. There is no thrush. EYES: Show his pupils to be equal and reactive. Extraocular motion intact. Sclerae anicteric. NEUROLOGIC: Shows II through XII intact with gross motor and gross sensation intact. Gait is not tested. PSYCHIATRIC: Shows him to be awake and alert, oriented times three with appropriate mood and affect and conversational. LABORATORY DATA: His white count today is 2.6 with a hemoglobin and hematocrit of 8.6 and 28.4, respectively, with a platelet count of 99 and stable. Chemistries show normal electrolytes with a BUN and creatinine of 13 and 0.64, glucose of 102, calcium of 7.6. His intake and output over the last 24 hours has been recorded as 2792 in and 1805 out for a positivity of 987 mL. As noted above, his chest tube has put out 930 mL and there is no air leak. Weight today is 57.9 kg compared to 57.5 kg yesterday. His chest x-ray shows chest tube in good place and costophrenic angles are sharp. He has residual radiation changes in the right lower lobe. There is no air fluid level on the right side or left side. I see no infiltrates other than the right lower lobe radiation changes on the lateral film. IMPRESSION: 1. Stage III B squamous cell carcinoma status post radiation therapy. 2. Pleural effusion, see discussion below. 3. Shortness of breath, resolving. 4. Fatigue and generalized weakness, continuing. 5. Hypertension. 6. Benign prostatic hypertrophy (BPH). 7. Gastroesophageal reflux disease (GERD). 8. History of head and neck cancer, status post radiation. 9. Dependence on PEG tube for feeding. PLAN/DISCUSSION: I have a sinking feeling that he is going to need a PleurX catheter as he is putting out so much from his chest tube. I am hoping that this is going to be a radiation serositis, but it would not at all surprise me if this was a malignant pleural effusion. We will have to wait for pathology, most likely tomorrow. In preparation for placing a PleurX catheter, I will remove his chest tube today and let his fluid reaccumulate so I have a good target for a PleurX placement. We will follow his chest x-rays over the next few days and probably get a CAT scan for final positioning of the PleurX catheter.
--- NOTE | 2019-07-01 10:32 | IPN ---
DATE: 07/01/2019 Ben has been getting out of bed. He has been ambulating in the hallway. He has been having a little bit of urinary retention. We have not been able to give him his Flomax or his finasteride as they apparently cannot be crushed and taken down the NG tube. I am not sure what he was doing at home to be on those medications as he has been relying on his G tube for his feedings. His pleural effusion seems to be reaccumulating clinically and chest x-ray today showed an increase in the right sided pneumothorax, hydropneumothorax on that side. Plan is for a PleurX catheter today. PHYSICAL EXAMINATION: Afebrile. Vital signs stable. He has sinus tachycardia. Lungs decreased breath sounds on the right. Wheezes on the left. Heart regular rhythm. Abdomen soft, nontender. No peripheral edema. LABS: Electrolytes unremarkable. CBC stable. White count 3.3. Hemoglobin 8.8. Platelets 99. Pathology from the pleural fluid is pending. IMPRESSION: 1. Right pleural effusion. Malignant versus reactive from radiation therapy. Pathology is pending. Dr. Howell plans a PleurX catheter today. 2. Dependence of tube feedings. Tube feedings were adjusted yesterday. 3. Benign prostatic hypertrophy. I will ask pharmacy what we can do about the BPH situation. Apparently, he cannot take his Flomax or finasteride per his G tube.
--- NOTE | 2019-07-01 11:53 | IPN ---
DATE: 07/01/2019 Mr. Curry states that he is breathing fairly well. He has not walked around today but he did walk around yesterday. He was wheeled to chest x-ray today rather than walking. His vital signs show a maximum temperature (t-max) of 98.8 with a heart rate that ranges between 121 and 101 in a sinus tachycardia with a respiratory rate of 16 to 22 without the use of accessory muscles, who is 94 to 97% saturated on room air, and whose blood pressure is ranging between 109/64 to 131/67. His intake and output over the past 24 hours has been recorded as 4315 in and 165 out for a positivity of 2660 mL. Prior to removing the chest tube yesterday, he put out 180 mL. His weight is pending today. He has taken 1700 mL in IV intake and 1440 mL in PEG tube feeding. PHYSICAL EXAMINATION: LUNGS: His right lung shows coarse rhonchi throughout inspiration and expiration. These do not clear with coughing. Percussion note is dull at the right base. Left lung shows some crackles and rhonchi, which clear with coughing. Percussion note is full to the diaphragm on the left side. CARDIAC EXAM: Without murmurs, clicks, gallops or rubs. He is in a sinus tachycardia. I cannot feel his point of maximum impulse (PMI). S1, S2 are normal. ABDOMEN: Soft, nontender. Bowel sounds positive. There is no hepatomegaly. No costovertebral angle tenderness. EXTREMITIES: Show no pretibial edema. No calf tenderness. No differential swelling of the upper extremities. SKIN: Warm, dry and perfused without cyanosis or mottling, including that of the nail beds and knees. NECK: Supple. There is no jugular venous distention. No subcutaneous emphysema. Trachea is midline. MOUTH: Shows his mucous membranes to be pink and moist. Lips and commissures without lesions. There is no thrush. EYES: Show his pupils to be equal and reactive. Extraocular motion intact. Sclerae anicteric. NEUROLOGIC: Shows II through XII intact with gross motor and gross sensation intact. Gait is not tested. PSYCHIATRIC: Shows him to be awake and alert, oriented times three with appropriate mood and affect and conversational. His white count today is 3.3 with a hemoglobin and hematocrit of 8.8 and 29.6, essentially unchanged from yesterday with a platelet count of 99 and stable. There is no differential on him. His electrolytes are normal with a BUN and creatinine of 10 and 0.62. Glucose is 95 with a calcium of 7.8. His chest x-ray today shows now an air fluid level on the right side on the lateral film. The radiation changes in the right lower lobe are still present. His lung is away from the chest wall with an apical air space that measures now 2 cm and also a lateral air space, which measures at the air fluid level 2 cm. The air fluid level is about one-third to one-half way up the chest. Pathology is still pending. IMPRESSION: 1. Stage III B squamous cell carcinoma, status post radiation therapy and chemotherapy. 2. Recurrent right pleural effusion. 3. Shortness of breath, continuing but better. 4. Fatigue and generalized weakness, continuing. 5. Hypertension. 6. Benign prostatic hypertrophy (BPH). 7. Gastroesophageal reflux disease (GERD). 8. History of head and neck cancer, status post radiation. 9. Dependence on PEG tube for feeding. PLAN/DISCUSSION: I am going to wait another 24 hours to acquire a good target for a PleurX catheter. Tomorrow, we will check his chest x-ray and undertake a CT scan. If his fluid is sufficient, as I suspect it will be, I will put a PleurX catheter in at the bedside. We will have the nursing staff teach him about PleurX catheter drainage bottles today.
[2019-07-01] MEDS: PANTOPRAZOLE 40MG INJ (PROTONIX) (C9113) IV SCH (12:50)
[2019-07-01] MEDS ORDERED: DOXAZOSIN MESYLATE 1 MG TAB PEG SCH (21:00)
[2019-07-01] MEDS: ALPRAZolam 0.5 MG TAB PEG PRN (22:19)
[2019-07-02] VITALS: BP 108/60
[2019-07-02] MEDS: KCL 20MEQ in NS 1000ML 1,000 ML IV SCH ×2 (00:12→09:01)
[2019-07-02] MEDS: LEVALBUTEROL 1.25 MG/0.5 ML CONCENTRATE NEB NEB SCH ×3 (02:00→14:00)
[2019-07-02 04:00] VITALS: BP 130/62
[2019-07-02] MEDS: KETOROLAC 30 MG/ML VIAL (J1885) IV SCH ×2 (04:46→13:30)
[2019-07-02 05:46] LABS: HEMATOCRIT 27.8 % (42.0-52.0); HEMOGLOBIN 8.7 g/dl (13.5-17.5); MEAN CORPUSCULAR HEMOGLOBIN 33.5 pg (27.0-33.0); MEAN CORPUSCULAR HGB CONC 31.3 g/dl (32.0-36.5); MEAN CORPUSCULAR VOLUME 106.9 fl (80.0-96.0); PLATELET COUNT, AUTOMATED 106 10^3/uL (150-450); WHITE BLOOD COUNT 2.8 10^3/uL (4.0-10.0)
[2019-07-02 06:08] LABS: BLOOD UREA NITROGEN 10 MG/DL (7-18); CALCIUM LEVEL 8.4 MG/DL (8.8-10.2); CARBON DIOXIDE LEVEL 24 MEQ/L (21-32); CHLORIDE LEVEL 114 MEQ/L (98-107); GLOMERULAR FILTRATION RATE > 60.0 (>42); GLUCOSE, FASTING 94 MG/DL (70-100); POTASSIUM SERUM 4.3 MEQ/L (3.5-5.1); SODIUM LEVEL 144 MEQ/L (136-145)
[2019-07-02 07:49] VITALS: BP 108/65
--- NOTE | 2019-07-02 08:33 | REP ---
Clinical: Pleural effusion. Technique: PA and lateral. Comparison: 07/01/2019. Findings: Right-sided pleuroparenchymal changes including moderate hydropneumothorax and irregular areas of opacity are unchanged. Left hemithorax is relatively well aerated and demonstrate stable chronic changes. Visualized portions of the mediastinum and cardiac silhouette are stable. Skeletal structures are intact. Impression: No change from prior examination. Electronically Signed by Dante Wright MD 07/02/2019 08:26 A
[2019-07-02] MEDS: ENOXAPARIN 40 MG/0.4 ML SYRINGE (J1650) SC SCH (08:37)
--- NOTE | 2019-07-02 08:49 | REP ---
Clinical: Pleural effusion. Technique: Axial noncontrast images from the thoracic inlet to the upper abdomen with coronal and sagittal re-formations. Comparison: 06/28/2019. Findings: A complex moderate right hydropneumothorax with multiloculated fluid components as well as ill-defined areas of opacity consolidation involving portions of the right lung are appreciated. Underlying emphysematous changes are appreciated. The left hemithorax demonstrates two ill-defined stable opacities at the left base measuring approximately 1.4 cm and 1.8 cm. Underlying mediastinal and hilar adenopathy is again suggested and stable. Thoracic aorta, pulmonary vasculature and heart/pericardium unchanged and again demonstrates diffuse atherosclerotic disease along with trace pericardial effusion and dual lead pacemaker. Osseous structures intact/stable. Impression: 1. Complex moderate right hydropneumothorax with ill-defined areas of right-sided consolidation and air bronchograms. 2. Stable opacities at the left base. Electronically Signed by Dante Wright MD 07/02/2019 08:40 A
[2019-07-02 11:54] VITALS: BP 120/63
--- NOTE | 2019-07-02 13:38 | IPN ---
DATE: 07/02/2019 I came in with the intention of placing a PleurX catheter in Mr. Curry. However, after reviewing the CT scan, he has not accumulated as much as I thought he would. Today he is feeling better, although he has not walked around yet today. He is breathing better. He does not complain of chest pain. His vital signs show a maximum temperature (t-max) of 98.1 with a heart rate that ranges between 68 and 95 in a sinus rhythm, respiratory rate that is constant at 18, who is 93 to 97% saturated on room air and whose blood pressure is ranging between 130/62 to 108.60. His intake and output over the past 24 hours has been recorded as 1250 in and 2800 out for a negativity of 1550 mL. He has put out 2800 mL in urine. He weighs 58.3 kg today compared to 57.9 kg two days ago. PHYSICAL EXAMINATION: LUNGS: He still has coarse rhonchi and rales on the right side with decreased breath sounds at the right base. Percussion note is also dull at the very base. Left sounds show some inspiratory rhonchi and rales, which clear with coughing. Percussion note is full to the diaphragm on the left. CARDIAC EXAM: Without murmurs, clicks, gallops or rubs. I cannot feel his point of maximum impulse (PMI). S1, S2 are normal. ABDOMEN: Soft, nontender. Bowel sounds positive. There is no hepatomegaly. No costovertebral angle tenderness. EXTREMITIES: Show no pretibial edema. No calf tenderness. No differential swelling of the upper extremities. SKIN: Warm, dry and perfused without cyanosis or mottling, including that of the nail beds and knees. NECK: Supple. There is no jugular venous distention. No subcutaneous emphysema. Trachea is midline. MOUTH: Shows his mucous membranes to be pink and moist. Lips and commissures without lesions. There is no thrush. EYES: Show his pupils to be equal and reactive. Extraocular motion intact. Sclerae anicteric. NEUROLOGIC: Shows II through XII intact with gross motor and gross sensation intact. Gait is not tested. PSYCHIATRIC: Shows him to be awake and alert, oriented times three with appropriate mood and affect and conversational. LABORATORY DATA: His white count today is 2.8 with a hemoglobin and hematocrit of 8.7 and 27.8, essentially unchanged from yesterday with a platelet count of 106 and stable. There is no differential. His electrolytes are normal with a BUN and creatinine of 10 and 0.6, glucose of 94 and calcium of 8.4. Dr. Beltran of pathology has called me and she at this point does not see any malignant cells. There are some cells that look like macrophages and she is going to perform special marker stains. His chest x-ray still shows an air fluid level on the right chest, which is about fci up the chest on the lateral film. He still has an air space where the upper lobe is not expanded. His chest CT shows an air space in the upper hemithorax, as noted on the chest x-ray. The fluid is not as much as it was when he first came in. He has not accumulated as much as I thought he was going to accumulate. He still has the radiation induced changes and fibrosis in the right lower lobe. As he is clearly doing well and there is not enough fluid to place a PleurX catheter, I am content with sending him home to be followed up by myself on Monday with another chest x-ray. If the chest x-ray is worse or he clinically is worse, he has been instructed to call the office. He still has a very small pericardial effusion. The effusion measures at most 3 mm. IMPRESSION: 1. Stage II B squamous cell carcinoma, status post radiation and chemotherapy. 2. Recurrent right pleural effusion. 3. Shortness of breath, improving. 4. Fatigue and generalized weakness, continuing but slightly improving. 5. Hypertension. 6. Benign prostatic hypertrophy (BPH). 7. Gastroesophageal reflux disease (GERD). 8. History of head and neck cancer, status post radiation. 9. Dependence on PEG tube for feeding. PLAN/DISCUSSION: As noted above, I will recommend that he be discharged today and be followed up on Monday. He lives with his son and he therefore has help at home. Hopefully, we can get him home for Thanksgiving dinner.
--- NOTE | 2019-07-02 15:13 | DS.PDOC ---
Discharge Summary General Date of Admission Jun 28, 2019 at 14:26 Date of Discharge 07/02/2019 Attending Physician: UYEN BALDERRAMA MD Specialist/Consultants Involve: Levy Howell M.D. Discharge Summary PROCEDURES PERFORMED DURING STAY: None ADMITTING DIAGNOSES: 1. Hypoxemic respiratory failure DISCHARGE DIAGNOSES: 1. . COMPLICATIONS/CHIEF COMPLAINT: Generalized Weakness. HISTORY OF PRESENT ILLNESS: Assessment: 78 yo man with with stage IIIB, T3N3M0 squamous cell carcinoma of the left lower lobe, s/p radiation therapy in 10/23 that was c/b esophagitis and he declined further treatment who presented to the ED with generalized weakness. HOSPITAL COURSE: In the ED he was found to have a moderate to large right pleural effusion on CT with post treatment changes in the right middle lobe, lower lobe and upper lobe as well as some emphysema, small pericardial effusion. Fluid was sent for analysis and the plan was eventually to place a pleurX catheter on reaccumulation by Dr. Howell. The fluid slowly increased but slowly and follow up imaging did not have significant accumulation to potential a pleurX placement, while at the same time, fluid analysis yielded no malignant cells. Given no evidence of being a malignant pleural effusion, Dr. Howell decided to defer the PleurX placement and discharge him home and will have him follow up in clinic. He otherwise continued his tube feeds, home pain regimen and a bowel regimen. He was seen by PT that cleared him for home discharge and is now being discharged home with PCP and follow up with Dr. Howell in the next 2 weeks. DISCHARGE MEDICATIONS: Please see below. ALLERGIES: Please see below. PHYSICAL EXAMINATION ON DISCHARGE: Vitals: see below. hemodynamically stable and afebrile General: Alert, awake, conversational, NAD Pulm: Diminished breath sounds right posteriorly, Scattered wheezing on the left with fair air movement. Cardiac: RRR, no mrg Abdomen: Normoactive bowel sounds, soft, nontender. Extremities: WWP, no peripheral edema Neuro: Non focal exam with full strength and ROM in all 4 extremities LABORATORY DATA: Please see below. IMAGIN/22: CT chest Moderate to large right pleural effusion. Post-treatment changes right middle lobe, lower lobe, and upper lobe. Emphysema. Small amount of pericardial effusion. A small zone of pleuroparenchymal opacity left base. Question fibro- atelectasis. Cholelithiasis. G tube. Abdominal aortic stent graft. Cardiac pacemaker. 07/01: 1. Complex moderate right hydropneumothorax with ill-defined areas ofright- sided consolidation and air bronchograms. 2. Stable opacities at the left base. He also had serial daily CXRs. PROGNOSIS: Fair to poor ACTIVITY: As tolerated DIET: Regular DISCHARGE PLAN: Home with PCP and Dr. Howell follow up for R pleural effusion DISPOSITION: Home DISCHARGE INSTRUCTIONS: 1. Please follow up with Dr. Howell as an outpatient for the fluid in the right lung. Also follow with your PCP. ITEMS TO FOLLOWUP ON ON OUTPATIENT: 1. Pleural effusion - pending official pathology report and microbiology 2. Metastatic SCLC - Followed with Dr. Wray declined further treatment 3. PCP follow up DISCHARGE CONDITION: Stable TIME SPENT ON DISCHARGE: Greater than 41 minutes. Vital Signs/I&Os Vital Signs Date Time Temp Pulse Resp B/P (MAP) Pulse Ox O2 Delivery O2 Flow Rate FiO2 07/02/19 11:54 98.0 84 18 120/63 (82) 97 Room Air 06/30/19 00:00 1.0 I&O- Last 24 Hours up to 6 AM 07/02/19 06:00 Intake Total 1250 ml Output Total 2600 ml Balance -1350 ml Laboratory Data Labs 24H Laboratory Tests 2 07/02/19 05:03: Nucleated Red Blood Cells % (auto) 0.0, Anion Gap 6L, Glomerular Filtration Rate > 60.0, Calcium Level 8.4L CBC/BMP Laboratory Tests 07/02/19 05:03 Microbiology Microbiology 06/28/19 Acid Fast Stain, Received Pending 06/28/19 Mycobacterial Culture, Received Pending 06/28/19 Fungal Smear, Received Pending 06/28/19 Fungal Culture, Received Pending 06/28/19 Gram Stain - Final, Complete 06/28/19 Body Fluid Culture - Final, Complete 06/28/19 Anaerobic Culture - Final, Complete Discharge Medications Scheduled Alprazolam (Alprazolam) 0.5 Mg Tablet, 0.5 MG PEG DAILY, (Reported) Diltiazem HCl (Diltiazem 12Hr ER) 120 Mg Cap.er.12h, 120 MG PEG QPM, (Reported) TAKES AT LEAST 4 HOURS AFTER METOPROLOL Finasteride (Finasteride) 5 Mg Tablet, 5 MG PEG DAILY, (Reported) Lactose-Reduced Food/Fiber (Jevity 1.2 Lazaro Liquid) 237 Ml Liquid, 1 LIQ PEG QID, (Reported) TAKES 3 TO 4 TIMES DAILY DEPENDING ON HOW STOMACH FEELS Metoprolol Succinate (Metoprolol Succinate) 50 Mg Tab.er.24h, 50 MG PEG DAILY, (Reported) Tamsulosin Hcl (Tamsulosin HCl) 0.4 Mg Capsule, 0.4 MG PEG QPM, (Reported) TAKES AT LEAST 4 HOURS AFTER FINASTERIDE Scheduled PRN Albuterol Sulfate (Albuterol Sulfate Hfa) 8.5 Gm Hfa.aer.ad, 2 PUFF INH QID PRN for WHEEZING, (Reported) Alprazolam (Alprazolam) 0.5 Mg Tablet, 0.5 MG PEG DAILY PRN for ANXIETY, (Reported) Diphenhydramine HCl (Benadryl) 25 Mg Capsule, 25 MG PEG QID PRN for ITCHING, (Reported) Docusate Sodium (Stool Softener) 100 Mg Capsule, 100 MG PEG DAILY PRN for CONSTIPATION, (Reported) Famotidine (Pepcid) 40 Mg Tablet, 40 MG PEG DAILY PRN for HEARTBURN, (Reported) Guaifenesin (Guaifenesin) 100 Mg/5 Ml Liquid, 25 ML PEG BID PRN for CONGESTION, (Reported) Hydrocodone/Acetaminophen (Hydrocodone-Acetamin 7.5-325) 1 Each Tablet, 1 TAB PEG QID PRN for PAIN, (Reported) Ondansetron (Ondansetron Odt) 4 Mg Tab.rapdis, 4 MG PO Q8H PRN for NAUSEA, (Reported) Allergies Coded Allergies: No Known Allergies (Unverified , 03/27/18) UYEN BALDERRAMA MD Jul 02, 2019 15:07
[2019-07-02] MEDS ORDERED: CARD1TAB4 PEG (15:15)
--- NOTE | 2019-07-08 10:17 | RO ---
DATE OF PROCEDURE: 06/28/2019 PREPROCEDURE DIAGNOSIS: Right pleural effusion. POSTPROCEDURE DIAGNOSIS: Right pleural effusion. PROCEDURE: Insertion of a right lateral chest tube with moderate sedation. SURGEON: Levy Howell MD WATER PUMP ASSEMBLER: ANESTHESIA: DESCRIPTION OF PROCEDURE: Under satisfactory moderate sedation with Versed, the patient was prepped and draped in the usual sterile fashion. An incision was made in the right chest in the approximately sixth intercostal space. A tunnel was created into the chest. And a #24 chest tube was placed without difficulty. Chest eluded 1800 mL. The chest tube was secured to the chest wall with #2 Tevdek suture and connected to the Pleur-evac. The patient tolerated the procedure well, and a chest x-ray is pending. Specimens will be sent for chemistries, hematologies, cytologies, and bacteriologies.
== END 2019-07-02 17:05 | disposition home health service (06) | DRG 186 ==
LOC: M ED 11:05 → M ED INP 14:26 → M PCU 16:35
PROVIDERS: ADMIT Family Medicine; ATTEND Student in an Organized Health Care Education/Training Program
PROC: 0W9900Z Drainage of Right Pleural Cavity with Drainage Device, Open Approach (ICD-10-PCS; principal; 2019-06-28)
DX: J90 Pleural effusion, not elsewhere classified (principal); J96.91 Respiratory failure, unspecified with hypoxia; C34.32 Malignant neoplasm of lower lobe, left bronchus or lung; R83.1 Abnormal level of hormones in cerebrospinal fluid; Z66 Do not resuscitate; I95.9 Hypotension, unspecified; D75.89 Other specified diseases of blood and blood-forming organs; I11.9 Hypertensive heart disease without heart failure; N40.0 Benign prostatic hyperplasia without lower urinary tract symptoms; K21.0 Gastro-esophageal reflux disease with esophagitis; Z92.3 Personal history of irradiation; Z95.0 Presence of cardiac pacemaker; Z90.49 Acquired absence of other specified parts of digestive tract; Z87.891 Personal history of nicotine dependence; Z79.891 Long term (current) use of opiate analgesic; Z79.899 Other long term (current) drug therapy; Z93.1 Gastrostomy status

== ENCOUNTER → 2019-07-08 | Outpatient (CLI) | payer MEDICARE ==
[~2019-07-08] MED LIST changes: +ALBU8.5H INH; +ALPR0.5T3 PEG; +BENA25CA4 PEG; +CARD1TAB4 PEG; +DILT12SRCA PEG; +DOCU-129 PEG; +FINA5TAB2 PEG; +GUAI100L6 PEG; +HYDR-3716 PEG; +JEVILIQ7 PEG; +METO1TAB7 PEG; +PEPC40TA12 PEG; +TAMS1CAP17 PEG
--- NOTE | 2019-07-08 11:51 | REPPI ---
Clinical: Pleural effusion followup. Technique: PA and lateral. Comparison: 07/02/2019. Findings: Multiloculated right side hydropneumothorax along with underlying pleuroparenchymal changes remain stable. Visualized portions of the mediastinum and cardiac silhouette are stable. No cardiomegaly. Left hemithorax demonstrates chronic interstitial changes similar to prior examination. No obvious new acute process identified. Impression: Stable multiloculated right-sided hydropneumothorax and pleuroparenchymal changes. Electronically Signed by Dante Wright MD 07/08/2019 11:43 A
== END ==
LOC: M PLAIMG 11:03
PROVIDERS: ATTEND Thoracic Surgery (Cardiothoracic Vascular Surgery)
DX: J94.2 Hemothorax (principal)

== ENCOUNTER 2020-06-03 15:15 | Emergency (ER) | payer MEDICARE ==
[~2020-06-03] VITALS: Ht 177.8 cm; Wt 56.8 kg
[~2020-06-03 15:15] MED LIST changes: +AMLO1TAB24 PO; -AMLO5TAB6 PO; -RANI-356 PO; +RANI-397 PO; -SUCR10SS PO; +SUCR1ORA2 PO
[2020-06-03] MEDS ORDERED: MORPHINE 4 MG/ML 1ML VIAL/SYRINGE (J2270) IV PRN (15:45)
[2020-06-03] MEDS ORDERED: ONDANSETRON 4MG/2ML VIAL IV ONE (15:45)
[2020-06-03] MEDS ORDERED: NS 500 ML IV ONE (15:45)
[2020-06-03 16:28] LABS: BASO % 0.5 % (0.0-1.0); EOS % 0.5 % (0.0-3.0); HEMOGLOBIN 10.4 g/dl (13.5-17.5); LYMPH # 0.7 10^3/uL (1.5-5.0); LYMPH % 15.2 % (24.0-44.0); MEAN CORPUSCULAR HEMOGLOBIN 28.3 pg (27.0-33.0); MEAN CORPUSCULAR HGB CONC 28.9 g/dl (32.0-36.5); MEAN CORPUSCULAR VOLUME 97.8 fl (80.0-96.0); MONO # 0.3 10^3/uL (0.0-0.8); MONO % 5.7 % (0.0-5.0); NEUTROPHILS # 3.4 10^3/uL (1.5-8.5); PLATELET COUNT, AUTOMATED 107 10^3/uL (150-450); RED BLOOD COUNT 3.68 10^6/uL (4.30-6.10); WHITE BLOOD COUNT 4.4 10^3/uL (4.0-10.0)
[2020-06-03 16:37] LABS: INR 1.05; PROTHROMBIN TIME 13.9 SECONDS (12.5-14.3)
[2020-06-03 16:38] LABS: PARTIAL THROMBOPLASTIN TIME 33.3 SECONDS (24.2-38.5)
[2020-06-03 16:49] LABS: ALBUMIN 2.9 GM/DL (3.2-5.2); ALT/SGPT 21 U/L (12-78); BILIRUBIN,DIRECT 0.1 MG/DL (0.0-0.2); BILIRUBIN,TOTAL 0.5 MG/DL (0.2-1.0); CK-MB VALUE MASS 1.1 NG/ML (<3.6); CPK CREATINE PHOSPHOKINASE 18 U/L (39-308); LIPASE 182 U/L (73-393); MB/CK RELATIVE INDEX 6.11 (< OR =4); TOTAL PROTEIN 6.7 GM/DL (6.4-8.2); TROPONIN I < 0.02 NG/ML (< 0.10)
[2020-06-03] MEDS ORDERED: ISOVUE-370 76% 100ML VIAL As Ordered ONE (16:49)
--- NOTE | 2020-06-03 17:25 | REPVR ---
PROCEDURE INFORMATION: Exam: CT Abdomen And Pelvis With Contrast Exam date and time: 06/03/2020 4:58 PM Age: 79 years old Clinical indication: Abdominal pain; Localized; Left lower quadrant (llq); Additional info: Luq pain TECHNIQUE: Imaging protocol: Computed tomography of the abdomen and pelvis with intravenous contrast. Radiation optimization: All CT scans at this facility use at least one of these dose optimization techniques: automated exposure control; mA and/or kV adjustment per patient size (includes targeted exams where dose is matched to clinical indication); or iterative reconstruction. Contrast material: ISOVUE 370; Contrast volume: 100 ml; Contrast route: INTRAVENOUS (IV); COMPARISON: CT ANGIO ABD/PEL 05/09/2017 8:07 PM FINDINGS: Tubes, catheters and devices: Gastrostomy tube is present within the stomach. No obvious complication. Pleural space: Large right pleural effusion is present with loculation and adjacent consolidation. No underlying pulmonary edema. Emphysematous changes are present in the left lung base with interstitial fibrosis. Liver: Liver demonstrates a left lobe fluid density cyst measuring 11 mm. Gallbladder and bile ducts: Gallbladder is present and shows no evidence of gallstone. Pancreas: Pancreas appears normal. No focal mass or peripancreatic inflammation. Spleen: Spleen appears homogeneous without focal mass. Adrenal glands: Adrenal glands are normal in appearance. Kidneys and ureters: Kidneys are unremarkable aside from simple fluid density cysts, 2 cm left and 7 mm right, which require no follow-up. Stomach and bowel: No evidence of small bowel obstruction. No evidence of acute diverticulitis. Sigmoid surgical anastomoses are present without obstruction or dehiscence. Appendix: Normal caliber appendix is identified, with no adjacent inflammation. Intraperitoneal space: No pneumoperitoneum. Trace free fluid is present in the pelvis. Vasculature: Moderate atherosclerotic change of the SMA without occlusive or high-grade stenotic lesion. Lymph nodes: No enlarged lymph nodes. Urinary bladder: Posterior wall of the bladder demonstrates nodular thickening or dependent debris. Reproductive: Prostate gland is diffusely enlarged. Bones/joints: Degenerative changes are seen in the hips and lumbar spine. Soft tissues: Unremarkable. Other findings: Aortoiliac endograft is present with no evidence of an endoleak. IMPRESSION: 1. No convincing explanation for acute left lower quadrant pain. No evidence of diverticulitis and no complication related to the sigmoid colonic anastomosis. 2. Questionable posterior bladder wall thickening or nodularity, versus dependent intraluminal debris. I cannot exclude a mass. 3. Large right pleural effusion with adjacent consolidation. Electronically signed by: Robert Smith On 06/03/2020 17:24:43 PM
[2020-06-03] MEDS ORDERED: SUCRALFATE SUSP 1GM/10ML UD PO ONE (18:00)
[2020-06-03] MEDS ORDERED: SUCR1SS PO (19:19)
[2020-06-03 20:00] VITALS: BP 130/70
--- NOTE | 2020-06-04 08:04 | ECGEPIP ---
[facility] - ED Test Date: 2020-06-03 Pat Name: RONALD ARORA Department: Room: - Gender: Male Shift Boss: OLGA : 1940 Requested By: FLORES CALL Order Number: [id number] Reading MD: April Nicolas Measurements Intervals [place] Rate: 77 P: 12 VA: 232 QRS: 76 QRSD: 80 T: 43 QT: 344 QTc: 389 Interpretive Statements SINUS RHYTHM WITH FIRST DEGREE AV BLOCK INDETERMINATE AXIS LOW QRS VOLTAGE IN EXTREMITY LEADS DECREASED RATE 06/28/19 Electronically Signed on 06-04-2020 8:04:27 EDT by April Nicolas
--- NOTE | 2020-06-05 16:06 | ED PDOC ---
Post-Departure Follow-Up dr garcia, dr kuhn, dr albright faxed formal report of ct abd/p for fu Josefina Christie MD Jun 05, 2020 16:06
== END 2020-06-03 20:18 | disposition home or self-care (01) ==
LOC: M ED 15:15
DX: R10.12 Left upper quadrant pain (principal); R10.32 Left lower quadrant pain; L98.491 Non-pressure chronic ulcer of skin of other sites limited to breakdown of skin; Z93.1 Gastrostomy status; J90 Pleural effusion, not elsewhere classified; L89.150 Pressure ulcer of sacral region, unstageable; I11.9 Hypertensive heart disease without heart failure; I25.2 Old myocardial infarction; Z95.0 Presence of cardiac pacemaker; N40.0 Benign prostatic hyperplasia without lower urinary tract symptoms; Z85.118 Personal history of other malignant neoplasm of bronchus and lung; Z85.818 Personal history of malignant neoplasm of other sites of lip, oral cavity, and pharynx; Z92.3 Personal history of irradiation; Z87.891 Personal history of nicotine dependence; Z79.899 Other long term (current) drug therapy
CPT/HCPCS: 74177; 80047; 80076; 82550; 82553; 83605; 83690; 84484; 85025; 85610; 85730; 93005; 93041; 96374; 96375; 99285; J2270; J2405; Q9967

== ENCOUNTER 2020-08-17 16:02 | Inpatient (IN) | payer MEDICARE ==
[~2020-08-17] VITALS: Ht 175.3 cm; Wt 52.0 kg
[~2020-08-17 16:02] MED LIST changes: -LISI-542 PO; +LISI-898 PO; +LISI10TA22 PO; -LISI10TA4 PO
--- OUTSIDE RECORDS SUMMARY | 2020-08-17 16:09 | CCD ---
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 Name Role Phone SEARS, A JASPER DO Unavailable Unavailable SEARS, A JASPER DO Unavailable Unavailable SEARS, A JASPER DO Unavailable Unavailable SEARS, A JASPER DO Unavailable Unavailable SEARS, A JASPER DO Unavailable Unavailable SEARS, A JASPER DO Unavailable Unavailable SEARS, A JASPER DO Unavailable Unavailable SEARS, A JASPER DO Unavailable Unavailable SEARS, A JASPER DO Unavailable Unavailable SEARS, A JASPER DO Unavailable Unavailable SEARS, A JASPER DO Unavailable Unavailable SEARS, A JASPER DO Unavailable Unavailable SEARS, A JASPER DO Unavailable Unavailable SEARS, A JASPER DO Unavailable Unavailable SEARS, A JASPER DO Unavailable Unavailable SEARS, A JASPER DO Unavailable Unavailable SEARS, A JASPER DO Unavailable Unavailable SEARS, A JASPER DO Unavailable Unavailable SEARS, A JASPER DO Unavailable Unavailable SEARS, A JASPER DO Unavailable Unavailable SEARS, A JASPER DO Unavailable Unavailable SEARS, A JASPER DO Unavailable Unavailable SEARS, A JASPER DO Unavailable Unavailable SEARS, A JASPER DO Unavailable Unavailable SEARS, A JAPSER DO Unavailable Unavailable SEARS, A JASPER DO Unavailable Unavailable SEARS, A JASPER DO Unavailable Unavailable SEARS, A JASPER DO Unavailable Unavailable SEARS, A JASPER DO Unavailable Unavailable SEARS, A JASPER DO Unavailable Unavailable SEARS, A JASPER DO Unavailable Unavailable SEARS, A JASPER DO Unavailable Unavailable SEARS, A JASPER DO Unavailable Unavailable SEARS, A JASPER DO Unavailable Unavailable SEARS, A JASPER DO Unavailable Unavailable SEARS, A JASPER DO Unavailable Unavailable SEARS, A JASPER DO Unavailable Unavailable SEARS, A JASPER DO Unavailable Unavailable SEARS, A JASPER DO Unavailable Unavailable SEARS, A JASPER DO Unavailable Unavailable SEARS, A JASPER DO Unavailable Unavailable SEARS, A JASPER DO Unavailable Unavailable SEARS, A JASPER DO Unavailable Unavailable SEARS, A JASPER DO Unavailable Unavailable SEARS, A JASPER DO Unavailable Unavailable Robert, L Sofía PA Unavailable Unavailable Robert, L Sofía PA Unavailable Unavailable Robert, L Sofía PA Unavailable Unavailable Robert, L Sofía PA Unavailable Unavailable Robert, L Sofía PA Unavailable Unavailable Robert, L Sofía PA Unavailable Unavailable Robert, L Sofía PA Unavailable Unavailable Robert, L Sofía PA Unavailable Unavailable Robert, L Sofía PA Unavailable Unavailable Robert, L Sofía PA Unavailable Unavailable Robert, L Sofía PA Unavailable Unavailable Robert, L Sofía PA Unavailable Unavailable Robert, L Sofía PA Unavailable Unavailable Robert, L Sofía PA Unavailable Unavailable Robert, L Sofía PA Unavailable Unavailable Robert, L Sofía PA Unavailable Unavailable Robert, L Sofía PA Unavailable Unavailable Robert, L Sofía PA Unavailable Unavailable Robert, L Sofía PA Unavailable Unavailable Robert, L Sofía PA Unavailable Unavailable Robert, L Sofía PA Unavailable Unavailable Robert, L Sofía PA Unavailable Unavailable Robert, L Sofía PA Unavailable Unavailable Re-disclosure Warning The records that you are about to access may contain information from federally-assisted alcohol or drug abuse programs. If such information is present, then the following federally mandated warning applies: This information has been disclosed to you from records protected by federal confidentiality rules (42 CFR part 2). The federal rules prohibit you from making any further disclosure of this information unless further disclosure is expressly permitted by the written consent of the person to whom it pertains or as otherwise permitted by 42 CFR part 2. A general authorization for the release of medical or other information is NOT sufficient for this purpose. The Federal rules restrict any use of the information to criminally investigate or prosecute any alcohol or drug abuse patient.The records that you are about to access may contain highly sensitive health information, the redisclosure of which is protected by Article 27-F of the [place] State Public Health law. If you continue you may have access to information: Regarding HIV / AIDS; Provided by facilities licensed or operated by the [facility] Office of Mental Health; or Provided by the [facility] Office for People With Developmental Disabilities. If such information is present, then the following [facility] mandated warning applies: This information has been disclosed to you from confidential records which are protected by state law. State law prohibits you from making any further disclosure of this information without the specific written consent of the person to whom it pertains, or as otherwise permitted by law. Any unauthorized further disclosure in violation of state law may result in a fine or half-way sentence or both. A general authorization for the release of medical or other information is NOT sufficient authorization for further disc losure. Family History Family Member Name Family Member Gender Family Member Status Date o f Status Description Data Source(s) Unknown Female Problem [facility], ) Unknown Male Encounters Encounter Providers Location Date Indications Data Source(s ) Outpatient Attender: Sofía GRAVES Main Office 09/20/2019 11:45:0 0 AM EST [facility] ([facility]) Outpatient Attender: Sofía GRAVES Main Office 08/22/2019 01:45:0 0 PM EST [facility] ([facility]) Outpatient Referrer: JASPER PETERSEN DO 07/10/2019 07:23:00 PM EST [facility] 12/26/2018 01:00:00 AM EDT - 019 03:54:13 PM EST [facility] ([facility]) Medications Medication Brand Name Start Date Product Form Dose Route Admi nistrative Instructions Pharmacy Instructions Status Indications Reaction Description Data Source(s) Cephalexin 500 MG Oral Capsule CEPHALEXIN 08/11/2020 12:00:00 AM EST capsule 20 TAKE ONE CAPSULE BY MOUTH TWICE A DAY TAKE ONE CAPSULE BY MO [facility] TWICE A DAY SOLD: 08/12/2020 [facility] 7.5-325 mg 08/11/2020 12:00:00 AM EST tablet 92 TAKE ONE TABLET BY MOUTH FOUR TIMES A DAY, MAXIMUM DAILY DOSE = FOUR TABLETS TAKE ONE TABLET BY MOUTH FOUR TIMES A DAY, MAXIMUM DAILY DOSE = FOUR TABLETS SOLD: 08/12/2020 [facility] Doxazosin 1 MG Oral Tablet DOXAZOSIN MESYLATE 08/11/2020 12:00:00 A M EST tablet 90 TAKE ONE TABLET BY MOUTH EVERY DAY TAKE ONE TABL ET BY MOUTH EVERY DAY SOLD: 08/12/2020 [facility] Alprazolam 0.5 MG Oral Tablet ALPRAZOLAM 08/11/2020 12:00:00 AM EST ta blet 60 TAKE ONE TABLET BY MOUTH TWICE A DAY, MAXIMUM DAILY DOSE = TWO TABLETS TAKE ONE TABLET BY MOUTH TWICE A DAY, MAXIMUM DAILY DOSE = TWO TABLETS SOLD: 08/12/2020 [facility] 7.5-325 mg 08/04/2020 12:00:00 AM EST tablet 28 TAKE ONE TABLET BY MOUTH FOUR TIMES A DAY MAXIMUM DAILY DOSE = FOUR TABLETS TAKE ONE TABLET BY MOUTH FOUR TIMES A DAY MAXIMUM DAILY DOSE = FOUR TABLETS SOLD: 08/04/2020 [facility] 7.5-325 mg 07/10/2020 12:00:00 AM EST tablet 90 TAKE ONE TABLET BY MOUTH THREE TIMES A DAY MAXIMUM DAILY DOSE = 3 TABLETS TAKE ONE TABLET BY MOUTH THREE TIMES A DAY MAXIMUM DAILY DOSE = 3 TABLETS SOLD: 07/10/2020 [facility] Alprazolam 0.5 MG Oral Tablet ALPRAZOLAM 07/10/2020 12:00:00 AM EST ta blet 60 TAKE ONE TABLET BY MOUTH TWO TIMES A DAY TAKE ONE TABLET BY MOUTH TWO TIMES A DAY SOLD: 07/10/2020 [facility] 25 mg 07/08/2020 12:00:00 AM EST capsule 120 TAKE ONE CAPSULE BY MOUTH FOUR TIMES A DAY TAKE ONE CAPSULE BY MOUTH FOUR TIMES A DAY SOLD: 07/09/2020 [facility] Cephalexin 500 MG Oral Capsule CEPHALEXIN 07/08/2020 12:00:00 AM EST capsule 20 TAKE ONE CAPSULE BY MOUTH TWO TIMES A DAY TAKE ONE CAP MARJORIE BY MOUTH TWO TIMES A DAY SOLD: 07/09/2020 [facility] Acyclovir 400 MG Oral Tablet ACYCLOVIR 07/08/2020 12:00:00 AM EST tabl et 180 TAKE ONE TABLET BY MOUTH TWO TIMES A DAY TAKE ONE TABLET BY MOUTH TWO TIMES A DAY SOLD: 07/09/2020 [facility] 100 mg/mL 06/03/2020 12:00:00 AM EDT suspension 200 TAKE 10ML BY MOUTH FOUR TIMES A DAY ON AN EMPTY STOMACH 1 HOUR BEFORE MEALS AND AT BEDTIME TAKE 10ML BY MOUTH FOUR TIMES A DAY ON AN EMPTY STOMACH 1 HOUR BEFORE MEALS AND AT BEDTIME SOLD: 06/03/2020 [facility] 7.5-325 mg 05/16/2020 12:00:00 AM EDT tablet 60 TAKE ONE TABLET BY MOUTH TWICE A DAY, MAXIMUM DAILY DOSE = TWO TABLETS TAKE ONE TABLET BY MOUTH TWICE A DAY, MAXIMUM DAILY DOSE = TWO TABLETS SOLD: 05/16/2020 [facility] 90 mcg/actuation 05/16/2020 12:00:00 AM EDT HFA aerosol inha ler 18 INHALE TWO PUFFS BY MOUTH FOUR TIMES A DAY INHALE TWO PUFFS BY MOUTH FOUR TIMES A DAY SOLD: 07/05/2020 [facility] 90 mcg/actuation 05/16/2020 12:00:00 AM EDT HFA aerosol inha ler 18 INHALE TWO PUFFS BY MOUTH FOUR TIMES A DAY INHALE TWO PUFFS BY MOUTH FOUR TIMES A DAY SOLD: 05/16/2020 [facility] Alprazolam 0.5 MG Oral Tablet ALPRAZOLAM 05/15/2020 12:00:00 AM EDT ta blet 60 TAKE ONE TABLET BY MOUTH TWICE A DAY, MAXIMUM DAILY DOSE = TWO TABLETS TAKE ONE TABLET BY MOUTH TWICE A DAY, MAXIMUM DAILY DOSE = TWO TABLETS SOLD: 05/16/2020 [facility] Doxazosin 1 MG Oral Tablet DOXAZOSIN MESYLATE 05/15/2020 12:00:00 A M EDT tablet 90 TAKE ONE TABLET BY MOUTH EVERY DAY TAKE ONE TABL ET BY MOUTH EVERY DAY SOLD: 05/16/2020 [facility] 5 mg 05/15/2020 12:00:00 AM EDT tablet 30 TAKE ONE TABLET BY MOUTH EVERY DAY TAKE ONE TABLET BY MOUTH EVERY DAY SOLD: 05/16/2020 [facility] 25 mg 05/15/2020 12:00:00 AM EDT capsule 120 TAKE ONE CAPSULE BY MOUTH FOUR TIMES A DAY TAKE ONE CAPSULE BY MOUTH FOUR TIMES A DAY SOLD: 05/16/2020 [facility] Alprazolam 0.5 MG Oral Tablet ALPRAZOLAM 04/17/2020 12:00:00 AM EDT ta blet 60 TAKE ONE TABLET BY MOUTH TWICE A DAY , MAXIMUM DAILY DOSE = 2 TABLETS TAKE ONE TABLET BY MOUTH TWICE A DAY , MAXIMUM DAILY DOSE = 2 TABLETS SOLD: 04/18/2020 [facility] Acyclovir 400 MG Oral Tablet ACYCLOVIR 04/17/2020 12:00:00 AM EDT tabl et 180 TAKE ONE TABLET BY MOUTH TWICE A DAY TAKE ONE TABLET BY MOUTH TWICE A DAY SOLD: 04/18/2020 [facility] 7.5-325 mg 04/17/2020 12:00:00 AM EDT tablet 60 TAKE ONE TABLET BY MOUTH TWICE A DAY , MAXIMUM DAILY DOSE = 2 TABLETS TAKE ONE TABLET BY MOUTH TWICE A DAY , MAXIMUM DAILY DOSE = 2 TABLETS SOLD: 04/17/2020 [facility] 25 mg 04/17/2020 12:00:00 AM EDT capsule 120 TAKE ONE CAPSULE BY MOUTH FOUR TIMES A DAY TAKE ONE CAPSULE BY MOUTH FOUR TIMES A DAY SOLD: 04/18/2020 [facility] 5 mg 04/17/2020 12:00:00 AM EDT tablet 30 TAKE ONE TABLET BY MOUTH EVERY DAY TAKE ONE TABLET BY MOUTH EVERY DAY SOLD: 04/18/2020 [facility] 5 mg 03/17/2020 12:00:00 AM EDT tablet 30 TAKE ONE TABLET BY MOUTH EVERY DAY TAKE ONE TABLET BY MOUTH EVERY DAY SOLD: 03/17/2020 [facility] 0.4 mg 03/17/2020 12:00:00 AM EDT capsule 90 TAKE ONE CAPSULE BY MOUTH EVERY DAY TAKE ONE CAPSULE BY MOUTH EVERY DAY SOLD: 03/17/2020 [facility] 25 mg 03/17/2020 12:00:00 AM EDT capsule 120 TAKE ONE CAPSULE BY MOUTH FOUR TIMES A DAY TAKE ONE CAPSULE BY MOUTH FOUR TIMES A DAY SOLD: 03/17/2020 [facility] 7.5-325 mg 03/16/2020 12:00:00 AM EDT tablet 60 TAKE ONE TABLET BY MOUTH TWICE A DAY, MAXIMUM DAILY DOSE = TWO TABLETS TAKE ONE TABLET BY MOUTH TWICE A DAY, MAXIMUM DAILY DOSE = TWO TABLETS SOLD: 03/17/2020 [facility] Alprazolam 0.5 MG Oral Tablet ALPRAZOLAM 03/16/2020 12:00:00 AM EDT ta blet 60 TAKE ONE TABLET BY MOUTH TWICE A DAY MAXIMUM DAILY DOSE = 2 TAKE ONE TABLET BY MOUTH TWICE A DAY MAXIMUM DAILY DOSE = 2 SOLD: 03/17/2020 [facility] 90 mcg/actuation 02/26/2020 12:00:00 AM EDT HFA aerosol inha ler 18 INHALE TWO PUFFS BY MOUTH FOUR TIMES A DAY INHALE TWO PUFFS BY MOUTH FOUR TIMES A DAY SOLD: 02/26/2020 [facility] 90 mcg/actuation 02/26/2020 12:00:00 AM EDT HFA aerosol inha ler 18 INHALE TWO PUFFS BY MOUTH FOUR TIMES A DAY INHALE TWO PUFFS BY MOUTH FOUR TIMES A DAY SOLD: 04/14/2020 [facility] Alprazolam 0.5 MG Oral Tablet ALPRAZOLAM 02/16/2020 12:00:00 AM EDT ta blet 60 TAKE ONE TABLET BY MOUTH TWICE A DAY MAXIMUM DAILY DOSE = TWO TABLETS TAKE ONE TABLET BY MOUTH TWICE A DAY MAXIMUM DAILY DOSE = TWO TABLETS SOLD: 02/16/2020 [facility] 7.5-325 mg 02/15/2020 12:00:00 AM EDT tablet 60 TAKE ONE TABLET BY MOUTH TWICE A DAY, MAXIMUM DAILY DOSE = TWO TABLETS TAKE ONE TABLET BY MOUTH TWICE A DAY, MAXIMUM DAILY DOSE = TWO TABLETS SOLD: 02/15/2020 [facility] 5 mg 02/14/2020 12:00:00 AM EDT tablet 30 TAKE ONE TABLET BY MOUTH EVERY DAY TAKE ONE TABLET BY MOUTH EVERY DAY SOLD: 02/15/2020 [facility] 25 mg 02/14/2020 12:00:00 AM EDT capsule 120 TAKE ONE CAPSULE BY MOUTH FOUR TIMES A DAY TAKE ONE CAPSULE BY MOUTH FOUR TIMES A DAY SOLD: 02/15/2020 [facility] Alprazolam 0.5 MG Oral Tablet ALPRAZOLAM 01/17/2020 12:00:00 AM EDT ta blet 60 TAKE ONE TABLET BY MOUTH TWO TIMES A DAY , MAXIMUM DAILY DOSE = 2 TABLETS TAKE ONE TABLET BY MOUTH TWO TIMES A DAY , MAXIMUM DAILY DOSE = 2 TABLETS SOLD: 01/18/2020 [facility] Doxazosin 1 MG Oral Tablet DOXAZOSIN MESYLATE 01/17/2020 12:00:00 A M EDT tablet 90 TAKE ONE TABLET BY MOUTH EVERY DAY TAKE ONE TABL ET BY MOUTH EVERY DAY SOLD: 01/18/2020 [facility] Acyclovir 400 MG Oral Tablet ACYCLOVIR 01/17/2020 12:00:00 AM EDT tabl et 180 TAKE ONE TABLET BY MOUTH TWICE A DAY TAKE ONE TABLET BY MOUTH TWICE A DAY SOLD: 01/18/2020 [facility] 25 mg 01/17/2020 12:00:00 AM EDT capsule 120 TAKE ONE CAPSULE BY MOUTH FOUR TIMES A DAY TAKE ONE CAPSULE BY MOUTH FOUR TIMES A DAY SOLD: 01/18/2020 [facility] 7.5-325 mg 01/17/2020 12:00:00 AM EDT tablet 60 TAKE ONE TABLET BY MOUTH TWO TIMES A DAY , MAXIMUM DAILY DOSE = 2 TABLETS TAKE ONE TABLET BY MOUTH TWO TIMES A DAY , MAXIMUM DAILY DOSE = 2 TABLETS SOLD: 01/17/2020 [facility] 5 mg 01/16/2020 12:00:00 AM EDT tablet 30 TAKE ONE TABLET BY MOUTH ONCE DAILY TAKE ONE TABLET BY MOUTH ONCE DAILY SOLD: 01/17/2020 [facility] 0.4 mg 12/17/2019 12:00:00 AM EDT capsule 90 TAKE ONE CAPSULE BY MOUTH EVERY DAY TAKE ONE CAPSULE BY MOUTH EVERY DAY SOLD: 12/18/2019 [facility] Alprazolam 0.5 MG Oral Tablet ALPRAZOLAM 12/17/2019 12:00:00 AM EDT ta blet 60 TAKE ONE TABLET BY MOUTH TWICE A DAY, MAXIMUM DAILY DOSE = TWO TABLETS TAKE ONE TABLET BY MOUTH TWICE A DAY, MAXIMUM DAILY DOSE = TWO TABLETS SOLD: 12/18/2019 [facility] 25 mg 12/17/2019 12:00:00 AM EDT capsule 120 TAKE ONE CAPSULE BY MOUTH FOUR TIMES A DAY TAKE ONE CAPSULE BY MOUTH FOUR TIMES A DAY SOLD: 12/18/2019 [facility] 7.5-325 mg 12/16/2019 12:00:00 AM EDT tablet 60 TAKE ONE TABLET BY MOUTH TWO TIMES A DAY, MAXIMUM DAILY DOSE = TWO TABLETS TAKE ONE TABLET BY MOUTH TWO TIMES A DAY, MAXIMUM DAILY DOSE = TWO TABLETS SOLD: 12/17/2019 [facility] Alprazolam 0.5 MG Oral Tablet ALPRAZOLAM 11/14/2019 12:00:00 AM EDT ta blet 60 TAKE ONE TABLET BY MOUTH TWICE A DAY , MAXIMUM DAILY DOSE = 2 TABLETS TAKE ONE TABLET BY MOUTH TWICE A DAY , MAXIMUM DAILY DOSE = 2 TABLETS SOLD: 11/15/2019 [facility] 100 mg/5 mL 11/14/2019 12:00:00 AM EDT liquid 473 TAKE 15ML BY MOUTH TWO TIMES A DAY TAKE 15ML BY MOUTH TWO TIMES A DAY SOLD: 12/11/2019 [facility] 25 mg 11/14/2019 12:00:00 AM EDT capsule 120 TAKE ONE CAPSULE BY MOUTH FOUR TIMES A DAY TAKE ONE CAPSULE BY MOUTH FOUR TIMES A DAY SOLD: 11/15/2019 [facility] 100 mg/5 mL 11/14/2019 12:00:00 AM EDT liquid 473 TAKE 15ML BY MOUTH TWO TIMES A DAY TAKE 15ML BY MOUTH TWO TIMES A DAY SOLD: 11/15/2019 [facility] 100 mg/5 mL 11/14/2019 12:00:00 AM EDT liquid 473 TAKE 15ML BY MOUTH TWO TIMES A DAY TAKE 15ML BY MOUTH TWO TIMES A DAY SOLD: 01/03/2020 [facility] 7.5-325 mg 11/13/2019 12:00:00 AM EDT tablet 60 TAKE ONE TABLET BY MOUTH TWICE A DAY , MAXIMUM DAILY DOSE = 2 TABLETS TAKE ONE TABLET BY MOUTH TWICE A DAY , MAXIMUM DAILY DOSE = 2 TABLETS SOLD: 11/14/2019 [facility] 100 mg/5 mL 10/16/2019 12:00:00 AM EDT liquid 473 TAKE 15ML BY MOUTH TWO TIMES A DAY TAKE 15ML BY MOUTH TWO TIMES A DAY SOLD: 10/16/2019 [facility] 25 mg 10/16/2019 12:00:00 AM EDT capsule 90 TAKE ONE CAPSULE BY MOUTH THREE TIMES A DAY TAKE ONE CAPSULE BY MOUTH THREE TIMES A DAY SOLD: 10/16/2019 [facility] 400 mg 10/16/2019 12:00:00 AM EDT tablet 180 TAKE ONE TABLET BY MOUTH TWICE A DAY TAKE ONE TABLET BY MOUTH TWICE A DAY SOLD: 10/16/2019 [facility] 7.5-325 mg 2019 12:00:00 AM EDT tablet 60 TAKE ONE TABLET BY MOUTH TWICE A DAY MAXIMUM DAILY DOSE = 2 TABLETS TAKE ONE TABLET BY MOUTH TWICE A DAY MAXIMUM DAILY DOSE = 2 TABLETS SOLD: 2019 [facility] Alprazolam 0.5 MG Oral Tablet ALPRAZOLAM 2019 12:00:00 AM EDT ta blet 60 TAKE ONE TABLET BY MOUTH TWICE A DAY MAXIMUM DAILY DOSE = 2 TABLETS TAKE ONE TABLET BY MOUTH TWICE A DAY MAXIMUM DAILY DOSE = 2 TABLETS SOLD: 2019 [facility] 125 mcg (0.125 mg) 09/24/2019 12:00:00 AM EST tablet 45 TAKE ONE TABLET BY MOUTH EVERY OTHER DAY TAKE ONE TABLET BY MOUTH EVERY OTHER DAY SOLD: 03/17/2020 [facility] Digoxin 0.125 MG Oral Tablet 125 mcg (0.125 mg) DIGOXIN 09/24/2019 12:00:00 AM EST tablet 45 TAKE ONE TABLET BY MOUTH TOBY RY OTHER DAY TAKE ONE TABLET BY MOUTH EVERY OTHER DAY SOLD: 06/17/2020 [facility] Digoxin 0.125 MG Oral Tablet [Digox] Digox 09/24/2019 12:00:00 AM EST ORAL active [facility] ([facility] 125 mcg (0.125 mg) 09/24/2019 12:00:00 AM EST tablet 45 TAKE ONE TABLET BY MOUTH EVERY OTHER DAY TAKE ONE TABLET BY MOUTH EVERY OTHER DAY SOLD: 12/11/2019 [facility] 125 mcg (0.125 mg) 09/24/2019 12:00:00 AM EST tablet 45 TAKE ONE TABLET BY MOUTH EVERY OTHER DAY TAKE ONE TABLET BY MOUTH EVERY OTHER DAY SOLD: 09/24/2019 [facility] Hydroxyzine Hydrochloride 10 MG Oral Tablet Hydroxyzine HCL 09/19/2019 12:00:00 AM EST active [facility] ([facility] Doxazosin 1 MG Oral Tablet DOXAZOSIN MESYLATE 09/17/2019 12:00:00 A M EST tablet 85 TAKE ONE TABLET BY MOUTH EVERY DAY TAKE ONE TABL ET BY MOUTH EVERY DAY SOLD: 09/19/2019 [facility] 7.5-325 mg 09/16/2019 12:00:00 AM EST tablet 60 TAKE ONE TABLET BY MOUTH TWICE A DAY, MAXIMUM DAILY DOSE = TWO TABLETS TAKE ONE TABLET BY MOUTH TWICE A DAY, MAXIMUM DAILY DOSE = TWO TABLETS SOLD: 09/16/2019 [facility] 0.4 mg 09/16/2019 12:00:00 AM EST capsule 90 TAKE ONE CAPSULE BY MOUTH EVERY DAY TAKE ONE CAPSULE BY MOUTH EVERY DAY SOLD: 09/16/2019 [facility] Guaifenesin 20 MG/ML Oral Solution 100 mg/5 mL GUAIFENESIN 09/16/2019 12:00:00 AM EST liquid 473 TAKE 25ML BY MOUTH TWO TIMES A DAY TAKE 25ML BY MOUTH TWO TIMES A DAY SOLD: 09/16/2019 [facility] 1 mg 09/16/2019 12:00:00 AM EST tablet 5 TAKE ONE TABLET BY MOUTH EVERY DAY TAKE ONE TABLET BY MOUTH EVERY DAY SOLD: 09/16/2019 [facility] 10 mg 09/16/2019 12:00:00 AM EST tablet 120 TAKE ONE TABLET BY MOUTH FOUR TIMES A DAY TAKE ONE TABLET BY MOUTH FOUR TIMES A DAY SOLD: 09/16/2019 [facility] Alprazolam 0.5 MG Oral Tablet ALPRAZOLAM 09/16/2019 12:00:00 AM EST ta blet 60 TAKE ONE TABLET BY MOUTH TWICE A DAY, MAXIMUM DAILY DOSE = TWO TABLETS TAKE ONE TABLET BY MOUTH TWICE A DAY, MAXIMUM DAILY DOSE = TWO TABLETS SOLD: 09/16/2019 [facility] Guaifenesin 20 MG/ML Oral Solution 100 mg/5 mL GUAIFENESIN 08/21/2019 12:00:00 AM EST liquid 473 TAKE 25ML BY MOUTH TWO TIMES A DAY TAKE 25ML BY MOUTH TWO TIMES A DAY SOLD: 08/21/2019 [facility] 200 ACTUAT Albuterol 0.09 MG/ACTUAT Metered Dose Inhaler [Pr oAir] Proair HFA 08/20/2019 12:00:00 AM EST ORAL active [facility] ([facility]) Magnesium Hydroxide 80 MG/ML Oral Suspension Milk Of Magnesi a 08/20/2019 12:00:00 AM EST active M [facility] ([facility]) Acetaminophen 325 MG / Hydrocodone Bitartrate 7.5 MG O ral Tablet Hydrocodone-Acetaminophen 08/20/2019 12:00:00 AM EST ORAL active [facility] ([facility]) Famotidine 40 MG Oral Tablet Famotidine 08/20/2019 12:00:00 AM EST active [facility] ([facility] Diphenhydramine Hydrochloride 2.5 MG/ML Oral Solution [Benadryl] Benadryl Allergy Childrens 08/20/2019 12:00:00 AM EST activ e [facility] ([facility]) Sucralfate 100 MG/ML Oral Suspension [Carafate] Carafate 08/20/2019 12:00:00 AM EST completed [facility] ([facility]) Jevity 1.5 Lazaro 08/20/2019 12:00:00 AM EST act cici [facility] ([facility]) 24 HR Diltiazem Hydrochloride 120 MG Extended Release Oral C apsule Diltiazem CD 08/20/2019 12:00:00 AM EST completed [facility] ([facility]) Guaifenesin 20 MG/ML Oral Solution Guaifenesin 08/20/2019 12:00:00 AM EST active [facility] ([facility]) Docusate Sodium 100 MG Oral Capsule [Colace] Colace 12:00:00 AM EST completed [facility] ([facility]) 24 HR metoprolol succinate 50 MG Extended Release Oral Tablet Metoprolol Succinate ER 08/20/2019 12:00:00 AM EST completed [facility] ([facility]) Doxazosin 2 MG Oral Tablet Doxazosin Mesylate 08/20/2019 12:00:[address] completed [facility] ([facility]) Alprazolam 0.5 MG Oral Tablet Alprazolam 08/20/2019 12:00:00 AM EST active [facility] ([facility]) Tamsulosin hydrochloride 0.4 MG Oral Capsule Tamsulosin HCL 08/20/2019 12:00:00 AM EST active [facility] ([facility] Alprazolam 0.5 MG Oral Tablet ALPRAZOLAM 08/16/2019 12:00:00 AM EST ta blet 60 TAKE ONE TABLET BY MOUTH TWICE A DAY MAXIMUM DAILY DOSE = 2 TAKE ONE TABLET BY MOUTH TWICE A DAY MAXIMUM DAILY DOSE = 2 SOLD: 08/17/2019 [facility] 7.5-325 mg 08/15/2019 12:00:00 AM EST tablet 60 TAKE ONE TABLET BY MOUTH TWICE A DAY, MAXIMUM DAILY DOSE = TWO TABLETS TAKE ONE TABLET BY MOUTH TWICE A DAY, MAXIMUM DAILY DOSE = TWO TABLETS SOLD: 08/16/2019 [facility] Alprazolam 0.5 MG Oral Tablet ALPRAZOLAM 07/17/2019 12:00:00 AM EST ta blet 60 TAKE ONE TABLET BY MOUTH TWICE A DAY, MAXIMUM DAILY DOSE = TWO TABLETS TAKE ONE TABLET BY MOUTH TWICE A DAY, MAXIMUM DAILY DOSE = TWO TABLETS SOLD: 07/18/2019 [facility] 7.5-325 mg 07/17/2019 12:00:00 AM EST tablet 60 TAKE ONE TABLET BY MOUTH TWICE A DAY, MAXIMUM DAILY DOSE = TWO TABLETS TAKE ONE TABLET BY MOUTH TWICE A DAY, MAXIMUM DAILY DOSE = TWO TABLETS SOLD: 07/18/2019 [facility] Doxazosin 1 MG Oral Tablet DOXAZOSIN MESYLATE 07/03/2019 12:00:00 A M EST tablet 60 TAKE TWO TABLETS BY MOUTH EVERY DAY AT B EDTIME TAKE TWO TABLETS BY MOUTH EVERY DAY AT BEDTIME SOLD: 07/05/2019 [facility] 90 mcg/actuation 05/07/2019 12:00:00 AM EDT HFA aerosol inha ler 8 INHALE TWO PUFFS BY MOUTH FOUR TIMES A DAY INHALE TWO PUFFS BY MOUTH FOUR TIMES A DAY SOLD: 07/05/2019 [facility] 90 mcg/actuation 05/07/2019 12:00:00 AM EDT HFA aerosol inha ler 8 INHALE TWO PUFFS BY MOUTH FOUR TIMES A DAY INHALE TWO PUFFS BY MOUTH FOUR TIMES A DAY SOLD: 01/10/2020 [facility] 50 mg 04/19/2019 12:00:00 AM EDT tablet extended release 24 hr 90 TAKE ONE TABLET BY MOUTH EVERY DAY TAKE ONE TABLET BY MOUTH EVERY DAY SOLD: 07/23/2019 [facility] 24 HR metoprolol succinate 50 MG Extended Release Oral Tablet Metoprolol Succinate ER 04/19/2019 12:00:00 AM EDT ORAL completed [facility] ([facility]) 5 mg 03/06/2019 12:00:00 AM EDT tablet 30 TAKE ONE TABLET VIA G-TUBE ONCE DAILY TAKE ONE TABLET VIA G-TUBE ONCE DAILY SOLD: 06/18/2019 [facility] 12 HR Diltiazem Hydrochloride 120 MG Extended Release Oral Capsule Diltiazem HCL ER 02/28/2019 12:00:00 AM EDT ORAL completed [facility] ([facility]) 100 mg/5 mL 12/27/2018 12:00:00 AM EDT liquid 1500 TAKE 25 MILLILITERS (500MG) BY MOUTH TWICE DAILY TAKE 25 MILLILITERS (500MG) BY MOUTH TWICE DAILY SOLD: 06/26/2019 [facility] Insurance Providers Payer name Policy type / Coverage type Policy ID Covered alliance party ID Covered alliance party's relationship to lucas Policy Lucas Plan Information MEDICARE BLUE PPO 306 [id number] SP [id number] MEDICARE [id number] SP [id number] EXCELLUS BCBS B [id number] S VYM [id number] EXCELLUS MEDICARE BLUE PPO G [id number] Self [id number] MEDICARE [id number] SP [id number] A MEDICARE BLUE PPO 306 [id number] SP [id number] BCBS Medicare Blue U/W Commercial [id number] Self [id number] MEDICARE BLUE PPO 306 [id number] SP [id number] Medicare Blue Ppo Commercial [id number] Self [id number] Medicare Blue Ppo Commercial [id number] Self [id number] MEDICARE BLUE PPO 306 [id number] SP [id number] Medicare Blue Ppo Commercial 302/802 Self 3 802 BCBS - Medicare Blue Ppo Commercial Self EXCELLUS BCBS MEDICARE [id number] [place] [id number] EXCELLUS BCBS P [id number] S VYM [id number] [place] P[place] 302/307 [id number] [id number] [employer] [id number] Surgeries/Procedures Procedure Description Date Indications Data Source(s) INTERROGATION EVAL REMOTE </90 D 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 PM 02/04 12:00:00 AM EDT [facility] ([facility]) INTERROGATION REMOTE </90 D 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 02/05/20 12:00:00 AM EDT [facility] ([facility]) INTERROGATION EVAL REMOTE </90 D 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 PM 07/25 12:00:00 AM EST [facility] ([facility]) INTERROGATION REMOTE </90 D 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 07/25/20 12:00:00 AM EST [facility] ([facility]) Results ID Date Data Source [id number] 06/03/2020 08:24:00 AM EDT [facility] ([facility]) Name Value Range Interpretation Code Description Data Dulce rce(s) Supporting Document(s) Troponin Laboratory test result [facility] ([facility]) ID Date Data Source [id number] 06/03/2020 08:24:00 AM EDT [facility] ([facility]) Name Value Range Interpretation Code Description Data Dulce rce(s) Supporting Document(s) Alkaline phosphatase [Enzymatic activity/volume] in Serum or Plasma 1 04 [facility] ([facility]) Alanine aminotransferase [Enzymatic activity/volume] in Serum or Pl asma 21 [facility] ([facility]) Aspartate aminotransferase [Enzymatic activity/volume] in Serum or Plasma 15 [facility] ([facility]) Bilirubin.direct [Mass/volume] in Serum or Plasma 0.1 [facility] ([facility]) Protein [Mass/volume] in Serum or Plasma 6.7 [facility] ([facility]) Bilirubin.total [Mass/volume] in Serum or Plasma 0.5 [facility] ([facility]) Albumin [Mass/volume] in Serum or Plasma 2.9 [facility] ([facility]) Cholesterol [Mass/volume] in Serum or Plasma Laboratory test result [facility] ([facility]) ID Date Data Source [id number] 06/03/2020 08:24:00 AM EDT [facility] ([facility]) Name Value Range Interpretation Code Description Data Dulce rce(s) Supporting Document(s) Lipoprotein lipase [Enzymatic activity/volume] in Serum or Plasma 182 [facility] ([facility]) ID Date Data Source [id number] 06/03/2020 08:24:00 AM EDT [facility] ([facility]) Name Value Range Interpretation Code Description Data Dulce rce(s) Supporting Document(s) White Blood Count 4.4 4.0-10.0 [facility] ([facility]) Platelets 107 150-450 [facility] Red Blood Count 3.68 4.30-6.10 [facility] ([facility]) Hematocrit 36.0 [facility] ([facility]) Hemoglobin 10.4 [facility] ([facility]) ID Date Data Source [id number] 09/21/2019 08:06:00 AM EST [facility] Name Value Range Interpretation Code Description Data Dulce rce(s) Supporting Document(s) Glucose 108 mg/dL 65-99 Above high normal [facility] BUN 19 mg/dL 8-27 [facility] Creatinine 0.86 mg/dL 0.76-1.27 [facility] eGFR If NonAfricn Am 84 mL/min/1.73 >59 [facility] eGFR If Africn Am 97 mL/min/1.73 >59 [facility] BUN/Creatinine Ratio 22 10-24 [facility] Sodium 140 mmol/L 134-144 [facility] Potassium 4.0 mmol/L 3.5-5.2 [facility] Chloride 99 mmol/L 96-106 [facility] Carbon Dioxide, Total 26 mmol/L 20-29 [facility] Calcium 9.5 mg/dL 8.6-10.2 [facility] ID Date Data Source [id number] 07/02/2019 08:27:00 AM EST [facility] ([facility]) Name Value Range Interpretation Code Description Data Dulce rce(s) Supporting Document(s) Blood Urea Nitrogen 10 7-18 [facility] ([facility]) Glucose 94 70-100 [facility] Potassium 4.3 3.5-5.1 [facility] Sodium 144 136-145 [facility] Creatinine 0.60 0.70-1.30 [facility] ([facility]) Calcium 8.4 8.8-10.2 [facility] Chloride 114 98-107 [facility] Carbon Dioxide 24 21-32 [facility] ([facility]) Glomerular filtration rate/1.73 sq M.pre dicted [Volume Rate/Area] in Serum or Plasma by Creatinine-based formula (MDRD) >60.0 [facility] ([facility]) ID Date Data Source [id number] 07/02/2019 08:27:00 AM EST [facility] ([facility]) Name Value Range Interpretation Code Description Data Dulce rce(s) Supporting Document(s) Red Blood Count 2.60 4.30-6.10 [facility] ([facility]) White Blood Count 2.8 4.0-10.0 [facility] ([facility]) Hematocrit 27.8 [facility] ([facility]) Hemoglobin 8.7 [facility] ([facility]) Platelets 106 150-450 [facility] Procedure Social History Code Duration Value Status Description Data Source(s ) Smoking 09/20/2019 12:00:00 AM EST Patient is a former smoker completed Patient is a former smoker [facility] ([facility]) Vital Signs ID Date Data Source UNK Name Value Range Interpretation Code Description Data Source(s) Diastolic blood pressure--sitting 62 mm[Hg] 62 mm[Hg] [facility] ([facility]) adult cuff, Ra Systolic blood pressure--sitting 96 mm[Hg] 96 mm[Hg] [facility] ([facility]) adult cuff, Ra Heart rate 100 /min 100 /min [facility] ([facility]) Body mass index (BMI) [Ratio] 18.6 kg/m2 18.6 k g/m2 [facility] ([facility]) Body height 69 [in_i] 69 [in_i] [facility] ([facility]) 5'9" Body weight 126.00 [lb_av] 126.00 [lb_av] [facility] ([facility]) Diastolic blood pressure--sitting 66 mm[Hg] 66 mm[Hg] [facility] ([facility]) adult cuff, Ra Systolic blood pressure--sitting 96 mm[Hg] 96 mm[Hg] [facility] ([facility]) adult cuff, Ra Heart rate 78 /min 78 /min [facility] ([facility] Body mass index (BMI) [Ratio] 18.5 kg/m2 18.5 k g/m2 [facility] ([facility]) Body height 69 [in_i] 69 [in_i] [facility] ([facility]) 5'9" Body weight 125.00 [lb_av] 125.00 [lb_av] [facility] T ([facility])
--- OUTSIDE RECORDS SUMMARY | 2020-08-17 16:09 | CCD | Continuity of Care Document ---
Author Organization Unknown Address Unknown Phone Unavailable Care Team Providers Care Office Runner Name Role Phone Sarah Menjivar MD AUT [phone] Problems Active Problems Provider Date Dizziness and giddiness Adolfo Oswald MD Onset: 5 Sinus node dysfunction Adolfo Oswald MD Onset: 11/13/2014 First degree atrioventricular block Adolfo Oswald MD Onse t: 11/13/2014 Electrocardiogram abnormal Adolfo Oswald MD Onset: 2014 Benign essential hypertension Adolfo Oswald MD Onset: 04/2015 Heart murmur Adolfo Oswald MD Onset: 11/13/2014 Cardiac pacemaker in situ Sindy Williamson NP Onset: 015 Increased frequency of urination Sindy Williamson NP Onset: 11/27/2014 Essential hypertension Sindy Williamson NP Onset: 07/06/2015 Paroxysmal atrial fibrillation JAKUB George-C Onset: 03/20/2017 Dilatation of aorta STAR Cedillo Onset: 03/06/2018 Dietary management surveillance STAR Cedillo Onset: 03/06/2018 Radiation sickness, unspecified, subsequent encounter STAR Singh Onset: 10/17/2018 Social History Type Date Description Comments Sex Unknown ETOH Use Consumes Beer 1 per month Tobacco Use Start: Unknown End: Unknown Patient is a former smoker up to 2 ppd x 60 yrs. Quit in 2013 Smoking Status Reviewed: 09/20/19 Patient is a former smoker up to 2 ppd x 60 yrs. Quit in 2013 Exercise Type/Frequency Does yardwork sporadical ly Exercise Type/Frequency Does housework sporadica lly Exercise Type/Frequency Exercises sporadically r emodeling home Exercise Limitations Muscle Pain legs Exercise Limitations Claudication Allergies, Adverse Reactions, Alerts Description No Known Drug Allergies Medications Active Medications SIG Qnty Indications Ordering Provide r Date Digox 125mcg Tablets 1 by mouth every other day 50tabs Adolfo Oswald MD 09/24/2019 Hydroxyzine HCL 10mg Tablets 1 by G tube four times daily as needed Sarah Menjivar MD Tamsulosin HCL 0.4mg Capsules 1 by feeding tube every day Sarah Menjivar MD 08/20/2019 Alprazolam 0.5mg Tablets 1 by feeding tube twice a day as needed Sarah Menjivar MD 020 Guaifenesin 100mg/5ML Solution 5 mL via feeding tube as needed Sarah Menjivar MD 2019 Milk Of Magnesia 1200mg/15ML Suspe nsion 30 milliliters by feeding tube twice daily as needed Sarah Menjivar MD 08/20/2019 Proair HFA 108(90Base) mcg/Act Aer osol 2 puffs by mouth as needed Sarah Menjivar MD 08/07 Benadryl Allergy Childrens 12.5mg/5ML Liquid 25 milliliters by feeding tube as needed Sarah Menjivar MD 08/20/2019 Famotidine 40mg Tablets 1 by feeding tube every day Sarah Menjivar MD 08/20/2019 Hydrocodone-Acetaminophen 7.5-325mg Tablets 1 by mouth in Am and 1/2 by feeding tube in PM as needed MDD=2 Sarah Menjivar MD 08/20/2019 Jevity 1.5 Lazaro Liquid 3 cans through g tube per day Sarah Menjivar MD 08/20/2019 Tylenol 8 Hour 650mg Tablets ER 1-2 by mouth daily, as needed Unknown 7 Doxazosin Mesylate 2mg Tablets 1/2 by feeding tube every day Unknown 0 Immunizations Description No Information Available Vital Signs Date Vital Result Comment 09/20/2019 12:46pm Weight 126.00 lb Home Weight 128lb Height 69 inches 5'9" BMI (Body Mass Index) 18.6 kg/m2 Heart Rate 100 /min BP Systolic Sitting 96 mmHg adult cuff, Ra BP Diastolic Sitting 62 mmHg adult cuff, Ra 08/22/2019 2:43pm Weight 125.00 lb Home Weight 120lb Height 69 inches 5'9" BMI (Body Mass Index) 18.5 kg/m2 Heart Rate 78 /min BP Systolic Sitting 96 mmHg adult cuff, Ra BP Diastolic Sitting 66 mmHg adult cuff, Ra Results Test Acquired Date Facility Test Result H/L Range Note CBC without Differential 06/03/2020 [facility] - not inter faced (315)- - White Blood Count 4.4 4.0-10.0 Red Blood Count 3.68 Low 4.30-6.10 Platelets 107 Low 150-450 Hemoglobin 10.4 Hematocrit 36.0 Laboratory test finding 06/03/2020 [facility] - not interf aced (315)- - Lipase 182 Liver Panel 06/03/2020 [facility] - not interfaced (315)- - Alkaline Phosphatase 104 Ast - Sgot 15 Alt - SGPT 21 Bilirubin Total Mass/Vol 0.5 Bilirubin Direct Mass/Vol 0.1 Protein Total 6.7 Albumin Serum/Plasma 2.9 Cholesterol Total Mass/Vol -- Laboratory test finding 06/03/2020 [facility] - not interf aced (315)- - Troponin <0.02 Procedures Date Code Description Status 02/05/2020 74862 Remote Pacemaker/Cardio-Defibril lator Data Acquistion Completed 02/05/2020 78350 Remote Interrogation Device Eval Pacemaker System Up To 90 Days Completed Medical Devices Description No Information Available Encounters Description No Information Available Assessments Date Code Description Provider 02/05/2020 Z95.0 Presence of cardiac pacemaker Pa [facility] Plan of Treatment Future Appointment(s):* 08/03/2020 1:30 pm - STAR Menezes at Main Office 09/20/2019 - STAR Cedillo* I48.0 Paroxysmal atrial fibrillation* Recommendations:* Please obtain lab work. * All * Follow up:* CV after leave. Functional Status Functional Condition Comment Date Status Independent with all ADL's Activ e Mental Status Description No Information Available Referrals Description No Information Available
[2020-08-17] MEDS ORDERED: NS 1,000 ML IV ONE (17:15)
[2020-08-17] MEDS ORDERED: MORPHINE 4 MG/ML 1ML VIAL/SYRINGE (J2270) IV PRN (17:15)
[2020-08-17 17:31] LABS: BASO % 0.5 % (0.0-1.0); EOS % 0.2 % (0.0-3.0); HEMATOCRIT 41.4 % (42.0-52.0); HEMOGLOBIN 11.6 g/dl (13.5-17.5); LYMPH # 0.9 10^3/uL (1.5-5.0); LYMPH % 15.1 % (24.0-44.0); MEAN CORPUSCULAR HEMOGLOBIN 27.7 pg (27.0-33.0); MEAN CORPUSCULAR VOLUME 98.8 fl (80.0-96.0); MONO # 0.2 10^3/uL (0.0-0.8); MONO % 4.1 % (0.0-5.0); NEUTROPHILS # 4.6 10^3/uL (1.5-8.5); NEUTROPHILS % 79.2 % (36.0-66.0); RED BLOOD COUNT 4.19 10^6/uL (4.30-6.10); WHITE BLOOD COUNT 5.8 10^3/uL (4.0-10.0)
[2020-08-17 17:57] LABS: ALBUMIN 3.4 GM/DL (3.2-5.2); ALT/SGPT 46 U/L (12-78); BILIRUBIN,DIRECT 0.2 MG/DL (0.0-0.2); BILIRUBIN,TOTAL 0.8 MG/DL (0.2-1.0); BLOOD UREA NITROGEN 33 MG/DL (7-18); C REACTIVE PROTEIN QUANTITATIV 6.39 MG/DL (0.00-0.30); CALCIUM LEVEL 9.7 MG/DL (8.8-10.2); CARBON DIOXIDE LEVEL 31 MEQ/L (21-32); CHLORIDE LEVEL 105 MEQ/L (98-107); CREATININE FOR GFR 1.02 MG/DL (0.70-1.30); GLOMERULAR FILTRATION RATE > 60.0 (>42); GLUCOSE, FASTING 146 MG/DL (70-100); LIPASE 137 U/L (73-393); POTASSIUM SERUM 4.2 MEQ/L (3.5-5.1); SODIUM LEVEL 141 MEQ/L (136-145); TOTAL PROTEIN 7.6 GM/DL (6.4-8.2)
[2020-08-17 18:02] LABS: PLATELET COUNT, AUTOMATED 97 10^3/uL (150-450)
[2020-08-17] MEDS ORDERED: ISOVUE-370 76% 100ML VIAL As Ordered ONE (18:02)
[2020-08-17 18:15] LABS: ERYTHROCYTE SEDIMENTATION RATE 49 mm/hr (0-20)
[2020-08-17 18:17] LABS: CK-MB VALUE MASS 1.4 NG/ML (<3.6); CPK CREATINE PHOSPHOKINASE 28 U/L (39-308); TROPONIN I < 0.02 NG/ML (< 0.10)
--- OUTSIDE RECORDS SUMMARY | 2020-08-17 18:52 | CCD ---
Author Author [facility] Organization [facility] Address Unknown Phone Unavailable Care Team Providers Care Roll Up Helper Name Role Phone SEARS, A JASPER DO [...] L Sofía PA Unavailable Unavailable Robert, L Sofaí PA Unavailable Unavailable Robert, L Sofía PA [...] is protected by Article 27-F of the [place] State Public Health law. If you continue you may have access to information: Regarding HIV / AIDS; Provided by facilities licensed or operated by the [facility] Office of Mental Health; or Provided by the [facility] Office for People With Developmental Disabilities. If such information is present, then the following [facility] mandated warning applies: This information has been [...] law may result in a fine or longterm sentence or both. A general authorization for the release of medical or other information is NOT sufficient authorization for further disc losure. Family History Family Member Name Family Member Gender Family Member Status Date o f Status Description Data Source(s) Unknown Female Problem [facility], ) Unknown Male Encounters Encounter Providers Location Date Indications Data Source(s ) Outpatient Attender: Sofía GRAVES Main Office 09/20/2019 11:45:0 0 AM EST [facility] ([facility]) Outpatient Attender: Sofía GRAVES Main Office 08/22/2019 01:45:0 0 PM EST [facility] ([facility]) Outpatient Referrer: JASPER PETERSEN DO 07/10/2019 07:23:00 PM EST [facility] 12/26/2018 01:00:00 AM EDT - 019 03:54:13 PM EST [facility] ([facility]) Medications Medication Brand Name Start Date Product Form Dose Route Admi nistrative Instructions Pharmacy Instructions Status Indications Reaction Description Data Source(s) Cephalexin 500 MG Oral Capsule CEPHALEXIN 08/11/2020 12:00:00 AM EST capsule 20 TAKE ONE CAPSULE BY MOUTH TWICE A DAY TAKE ONE CAPSULE BY MO [facility] TWICE A DAY SOLD: 08/12/2020 [facility] [...] EST ORAL active [facility] ([facility]) 125 mcg (0.125 mg) 09/24/2019 12:00:00 AM [...] AM EST active [facility] ([facility]) Doxazosin 1 MG Oral Tablet DOXAZOSIN MESYLATE [...] DAILY DOSE = TWO TABLETS SOLD: 09/16/2019 [facility] Guaifenesin 20 MG/ML Oral Solution 100 mg/5 mL GUAIFENESIN 08/21/2019 12:00:00 AM EST liquid 473 TAKE 25ML BY MOUTH TWO TIMES A DAY TAKE 25ML BY MOUTH TWO TIMES A DAY SOLD: 08/21/2019 [facility] 200 ACTUAT Albuterol 0.09 MG/ACTUAT Metered Dose Inhaler [Pr oAir] Proair HFA 08/20/2019 12:00:00 AM EST ORAL active [facility] ([facility]) Magnesium Hydroxide 80 MG/ML Oral Suspension Milk Of Magnesi a 08/20/2019 12:00:00 AM EST active M [facility] ([facility]) Acetaminophen 325 MG / Hydrocodone Bitartrate 7.5 MG O ral Tablet Hydrocodone-Acetaminophen 08/20/2019 12:00:00 AM EST ORAL active [facility] ([facility]) Famotidine 40 MG Oral Tablet Famotidine 08/20/2019 12:00:00 AM EST active [facility] ([facility]) Diphenhydramine Hydrochloride 2.5 MG/ML Oral Solution [Benadryl] Benadryl Allergy Childrens 08/20/2019 12:00:00 AM EST activ e [facility] ([facility]) Sucralfate 100 MG/ML Oral Suspension [Carafate] Carafate 08/20/2019 12:00:00 AM EST completed [facility] ([facility]) Jevity 1.5 Lazaro 08/20/2019 12:00:00 AM EST act cici [facility] ([facility]) 24 HR Diltiazem Hydrochloride 120 MG Extended Release Oral C apsule Diltiazem CD 08/20/2019 12:00:00 AM EST completed [facility] ([facility]) Guaifenesin 20 MG/ML Oral Solution Guaifenesin 08/20/2019 12:00:00 AM EST active [facility] ([facility]) Docusate Sodium 100 MG Oral Capsule [Colace] Colace 12:00:00 AM EST completed [facility] ([facility]) 24 HR metoprolol succinate 50 MG Extended Release Oral Tablet Metoprolol Succinate ER 08/20/2019 12:00:00 AM EST completed [facility] ([facility]) Doxazosin 2 MG Oral Tablet Doxazosin Mesylate 08/20/2019 12:00:[address] completed [facility] ([facility]) Alprazolam 0.5 MG Oral Tablet Alprazolam 08/20/2019 12:00:00 AM EST active [facility] ([facility]) Tamsulosin hydrochloride 0.4 MG Oral Capsule Tamsulosin HCL 08/20/2019 12:00:00 AM EST active [facility] ([facility]) Alprazolam 0.5 MG Oral Tablet ALPRAZOLAM 08/16/2019 12:00:00 AM EST ta blet 60 TAKE ONE TABLET BY MOUTH TWICE A DAY MAXIMUM DAILY DOSE = 2 TAKE ONE TABLET BY MOUTH TWICE A DAY MAXIMUM DAILY DOSE = 2 SOLD: 08/17/2019 [facility] 7.5-325 mg 08/15/2019 12:00:00 AM EST tablet 60 TAKE ONE TABLET BY MOUTH TWICE A DAY, MAXIMUM DAILY DOSE = TWO TABLETS TAKE ONE TABLET BY MOUTH TWICE A DAY, MAXIMUM DAILY DOSE = TWO TABLETS SOLD: 08/16/2019 [facility] Alprazolam 0.5 MG Oral Tablet ALPRAZOLAM [...] DAILY DOSE = TWO TABLETS SOLD: 07/18/2019 [facility] Doxazosin 1 MG Oral Tablet DOXAZOSIN MESYLATE 07/03/2019 12:00:00 A M EST tablet 60 TAKE TWO TABLETS BY MOUTH EVERY DAY AT B EDTIME TAKE TWO TABLETS BY MOUTH EVERY DAY AT BEDTIME SOLD: 07/05/2019 [facility] 90 mcg/actuation 05/07/2019 12:00:00 AM [...] AM EDT ORAL completed [facility] ([facility]) 5 mg 03/06/2019 12:00:00 AM EDT tablet 30 TAKE ONE TABLET VIA G-TUBE ONCE DAILY TAKE ONE TABLET VIA G-TUBE ONCE DAILY SOLD: 06/18/2019 [facility] 12 HR Diltiazem Hydrochloride 120 MG Extended Release Oral Capsule Diltiazem HCL ER 02/28/2019 12:00:00 AM EDT ORAL completed [facility] ([facility]) 100 mg/5 mL 12/27/2018 12:00:00 AM EDT liquid 1500 TAKE 25 MILLILITERS (500MG) BY MOUTH TWICE DAILY TAKE 25 MILLILITERS (500MG) BY MOUTH TWICE DAILY SOLD: 06/26/2019 [facility] Insurance Providers Payer name Policy type / Coverage type Policy ID Covered constitution party ID Covered constitution party's relationship to lucas Policy Lucas Plan Information MEDICARE BLUE PPO 306 [id number] SP [id number] MEDICARE [id number] SP [id number] EXCELLUS BCBS B [id number] S VYM [id number] EXCELLUS MEDICARE BLUE PPO G [id number] Self [id number] MEDICARE [id number] SP [id number] A MEDICARE BLUE PPO 306 [id number] SP [id number] BCBS Medicare Blue U/W Commercial [id number] Self [id number] MEDICARE BLUE PPO 306 [id number] SP [id number] Medicare Blue Ppo Commercial [id number] Self [id number] Medicare Blue Ppo Commercial [id number] Self [id number] MEDICARE BLUE PPO 306 [id number] SP [id number] Medicare Blue Ppo Commercial [id number] Self [id number] BCBS - Medicare Blue Ppo Commercial Self EXCELLUS BCBS MEDICARE [id number] Scarlett [id number] EXCELLUS BCBS P [id number] S VYM [id number] [place] PPO 302/[id number] [employer] [id number] Surgeries/Procedures Procedure Description Date Indications Data Source(s) INTERROGATION EVAL REMOTE </90 D 1/2/PARALEGAL INSTRUCTOR LEAD PM 02/04 12:00:00 AM EDT [facility] ([facility]) INTERROGATION REMOTE </90 D SOFTWARE BUILD ENGINEER REVIEW 02/05/20 12:00:00 AM EDT [facility] ([facility]) INTERROGATION EVAL REMOTE </90 D 1/2/PARALEGAL INSTRUCTOR LEAD PM 07/25 12:00:00 AM EST [facility] ([facility]) INTERROGATION REMOTE </90 D SOFTWARE BUILD ENGINEER REVIEW 07/25/20 12:00:00 AM EST [facility] ([facility]) Results ID Date Data Source [id number] 06/03/2020 08:24:00 AM EDT [facility] ([facility]) Name Value Range Interpretation Code Description Data Dulce rce(s) Supporting Document(s) Troponin Laboratory test result [facility] ([facility]) ID Date Data Source [id number] 06/03/2020 08:24:00 AM EDT [facility] ([facility]) Name Value Range Interpretation Code Description Data Dulce rce(s) Supporting Document(s) Alkaline phosphatase [Enzymatic activity/volume] in Serum or Plasma 1 04 [facility] ([facility]) Alanine aminotransferase [Enzymatic activity/volume] in Serum or Pl asma 21 [facility] ([facility]) Aspartate aminotransferase [Enzymatic activity/volume] in Serum or Plasma 15 [facility] ([facility]) Bilirubin.direct [Mass/volume] in Serum or Plasma 0.1 [facility] ([facility]) Protein [Mass/volume] in Serum or Plasma 6.7 [facility] ([facility]) Bilirubin.total [Mass/volume] in Serum or Plasma 0.5 [facility] ([facility]) Albumin [Mass/volume] in Serum or Plasma 2.9 [facility] ([facility]) Cholesterol [Mass/volume] in Serum or Plasma [facility] ID Date Data Source [id number] 06/03/2020 08:24:00 AM EDT [facility] Name Value Range Interpretation Code Description Data Dulce rce(s) Supporting Document(s) Lipoprotein lipase [Enzymatic activity/volume] in Serum or Plasma 182 [facility] ([facility]) ID Date Data Source [id number] 06/03/2020 08:24:00 AM EDT [facility] ([facility]) Name Value Range Interpretation Code Description Data Dulce rce(s) Supporting Document(s) White Blood Count 4.4 4.0-10.0 [facility] ([facility]) Platelets 107 150-450 [facility] Red Blood Count 3.68 4.30-6.10 [facility] ([facility]) Hematocrit 36.0 [facility] ([facility]) Hemoglobin 10.4 [facility] ([facility]) ID Date Data Source [id number] 09/21/2019 08:06:00 AM EST [facility] Name Value [...] mg/dL 8.6-10.2 [facility] ID Date Data Source [id number] 07/02/2019 08:27:00 AM EST [facility] ([facility]) Name Value Range Interpretation Code Description Data Dulce rce(s) Supporting Document(s) Blood Urea Nitrogen 10 7-18 [facility] ([facility]) Glucose 94 70-100 [facility] Potassium 4.3 3.5-5.1 [facility] Sodium 144 136-145 [facility] Creatinine 0.60 0.70-1.30 [facility] ([facility]) Calcium 8.4 8.8-10.2 [facility] Chloride 114 98-107 [facility] Carbon Dioxide 24 21-32 [facility] ([facility]) Glomerular filtration rate/1.73 sq M.pre dicted [Volume Rate/Area] in Serum or Plasma by Creatinine-based formula (MDRD) >60.0 [facility] ([facility]) ID Date Data Source [id number] 07/02/2019 08:27:00 AM EST [facility] ([facility]) Name Value Range Interpretation Code Description Data Dulce rce(s) Supporting Document(s) Red Blood Count 2.60 4.30-6.10 [facility] ([facility]) White Blood Count 2.8 4.0-10.0 [facility] ([facility]) Hematocrit 27.8 [facility] ([facility]) Hemoglobin 8.7 [facility] ([facility]) Platelets 106 150-450 [facility] Procedure Social History Code Duration Value Status Description Data Source(s ) Smoking 09/20/2019 12:00:00 AM EST Patient is a former smoker completed Patient is a former smoker [facility] ([facility]) Vital Signs ID Date Data Source UNK Name Value Range Interpretation Code Description Data Source(s) Diastolic blood pressure--sitting 62 mm[Hg] 62 mm[Hg] [facility] ([facility]) adult cuff, Ra Systolic blood pressure--sitting 96 mm[Hg] 96 mm[Hg] [facility] ([facility]) adult cuff, Ra Heart rate 100 /min 100 /min [facility] ([facility]) Body mass index (BMI) [Ratio] 18.6 kg/m2 18.6 k g/m2 [facility] ([facility]) Body height 69 [in_i] 69 [in_i] [facility] ([facility]) 5'9" Body weight 126.00 [lb_av] 126.00 [lb_av] [facility] T ([facility]) Diastolic blood pressure--sitting 66 mm[Hg] 66 mm[Hg] [facility] ([facility]) adult cuff, Ra Systolic blood pressure--sitting 96 mm[Hg] 96 mm[Hg] [facility] ([facility]) adult cuff, Ra Heart rate 78 /min 78 /min [facility] Body mass index (BMI) [Ratio] 18.5 kg/m2 18.5 k g/m2 [facility] ([facility]) Body height 69 [in_i] 69 [in_i] [facility] ([facility]) 5'9" Body weight 125.00 [lb_av] 125.00 [lb_av] MEDEN T ([facility])
--- NOTE | 2020-08-17 19:41 | REPVR ---
PROCEDURE INFORMATION: Exam: CT Abdomen And Pelvis With Contrast Exam date and time: 08/17/2020 5:13 PM Age: 79 years old Clinical indication: Abdominal pain; Additional info: Chest pain, lung CA, g tube TECHNIQUE: Imaging protocol: Computed tomography of the abdomen and pelvis with intravenous contrast. Radiation optimization: All CT scans at this facility use at least one of these dose optimization techniques: automated exposure control; mA and/or kV adjustment per patient size (includes targeted exams where dose is matched to clinical indication); or iterative reconstruction. Contrast material: ISOVUE 370; Contrast volume: 100 ml; Contrast route: INTRAVENOUS (IV); COMPARISON: CT ABD/PEL W/IV CONTRAST ONLY 06/03/2020 4:51 PM FINDINGS: Tubes, catheters and devices: There is a percutaneous gastrostomy tube entering into the distal body of the stomach in appropriate position. Lungs: For details regarding the lungs, refer to the CTA chest report on 08/17/2020. Pleural space: For details regarding the pleural space, refer to the CTA chest report on 08/17/2020. Heart: For details regarding the heart, refer to the CTA chest report on 08/17/2020. Liver: There are hepatic cysts measuring up to 14 mm, which are stable compared to the prior CT abdomen and pelvis on 06/03/2020 and for which further follow-up is not necessary. The contour of the liver is smooth. No hepatomegaly. Gallbladder and bile ducts: There are several gallstones in the gallbladder. No gallbladder wall thickening, pericholecystic fluid, or inflammatory fat stranding is noted around the gallbladder. No dilation of the bile ducts is noted. No calcified stones are seen in the common bile duct. Pancreas: Normal. No dilation of the main pancreatic duct is noted. There is no inflammatory fat stranding around the pancreas to suggest acute pancreatitis. Spleen: The spleen is heterogeneous in appearance, which is likely secondary to the arterial timing of the contrast bolus. No splenomegaly. Adrenal glands: Normal. No adrenal mass is noted. Kidneys and ureters: There are bilateral benign-appearing renal cysts, the largest measuring 1.8 cm in the left kidney, which are stable compared to the prior CT abdomen and pelvis on 06/03/2020 and for which further follow-up is not necessary. No solid renal mass is noted. No stones are noted in the kidneys or ureters. There is no hydronephrosis or hydroureter. There are no wedge-shaped areas of low attenuation in the kidneys to suggest pyelonephritis. There is no renal abscess or perinephric fluid collection. Stomach and bowel: The small bowel is unremarkable. There is colonic diverticulosis without evidence for diverticulitis. There is no evidence for a bowel obstruction, colitis, pneumatosis intestinalis, intussusception, volvulus, or perforated viscus. There is an anastomotic suture line at the rectosigmoid junction. Appendix: Normal. There is no evidence for appendicitis. Intraperitoneal space: There is a small amount of free fluid that measures water density in the pelvis. No free air or abscess. Retroperitoneal space: No fluid collection. No mass. Vasculature: There is a patent aorto bi common iliac stent in place in an infrarenal abdominal aortic aneurysm that measures 3 cm x 3 cm in diameter, which is stable compared to the prior CT abdomen and pelvis on 06/03/2020. No rupture of the aneurysm or endoleak is noted. There is mild stenosis of the origin of the superior mesenteric artery and moderate stenosis of the proximal portion of the right main renal artery, which are similar in appearance compared to the prior CT abdomen and pelvis on 06/03/2020. Incidental note is made of small round calcifications in the pelvis, which are compatible with phleboliths. Lymph nodes: No enlarged lymph nodes. Urinary bladder: The partially distended urinary bladder is unremarkable. No stones or masses are seen in the bladder. Reproductive: The prostate gland is enlarged and measures 3.4 cm x 5 cm x 4 cm and the volume of the prostate gland is increased and measures 35.6 mL. The seminal vesicles are unremarkable. Bones/joints: There is no acute fracture or dislocation. There are old healed fracture deformities involving the left posterior 10th and 11th ribs. The ribs were not fully imaged. There are degenerative changes in the lumbar spine. 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 No suspicious osteolytic or osteoblastic lesion is noted. Soft tissues: There is a midline vertical incision scar in the anterior abdominal wall. No hernia or soft tissue fluid collection is noted. IMPRESSION: 1. Cholelithiasis without CT evidence for cholecystitis. 2. Colonic diverticulosis without evidence for diverticulitis. 3. Enlarged prostate. 4. Patent aorto bi common iliac stent in place in an infrarenal abdominal aortic aneurysm that measures 3 cm x 3 cm in diameter, which is stable compared to the prior CT abdomen and pelvis on 06/03/2020. No rupture of the aneurysm or endoleak. 5. 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 6. Small amount of free fluid in the pelvis, which is similar in appearance compared to the prior CT abdomen and pelvis on 06/03/2020. Electronically signed by: Elliott Raya On 08/17/2020 19:42:13 PM
--- NOTE | 2020-08-17 19:41 | REPVR ---
PROCEDURE INFORMATION: Exam: CT Angiography Chest With Contrast Exam date and time: 08/17/2020 5:13 PM Age: 79 years old Clinical indication: Chest pain; Additional info: Chest pain, lung CA, g tube TECHNIQUE: Imaging protocol: Computed tomographic angiography of the chest with intravenous contrast. 3D rendering (Not supervised by radiologist): MIP and/or 3D reconstructed images were created by the technologist. Radiation optimization: All CT scans at this facility use at least one of these dose optimization techniques: automated exposure control; mA and/or kV adjustment per patient size (includes targeted exams where dose is matched to clinical indication); or iterative reconstruction. Contrast material: ISOVUE 370; Contrast volume: 100 ml; Contrast route: INTRAVENOUS (IV); COMPARISON: CT Chest without contrast 07/02/2019 8:10 AM FINDINGS: Tubes, catheters and devices: There is a left subclavian pacemaker device in place with leads in the right atrium and right ventricle. Pulmonary arteries: No pulmonary embolism. Aorta: The thoracic aorta is intact and patent. There is no thoracic aortic aneurysm, pseudoaneurysm, penetrating atherosclerotic ulcer, intramural hematoma, or dissection. There are moderate atherosclerotic calcifications. Great vessels off aortic arch: The brachiocephalic artery, imaged proximal portions of the common carotid arteries, imaged proximal portions of the vertebral arteries, and subclavian arteries are intact. No stenosis or occlusion of these vessels is noted. Tracheobronchial tree: There is bronchiectasis in the right lung. Lungs: There are bulla in the right lung apex. Centrilobular emphysematous changes are present, which are stable compared to the prior CT chest on 07/02/2019. Some of the ill-defined opacities in the left lower lobe have resolved since the prior CT chest on 07/02/2019. There is a persistent irregular opacity measuring up to 1 cm in the left lower lobe (image 89 of the axial series 402). There are pulmonary nodules in the right lung measuring 3 mm in 3 mm (images 34 and 36 of the coronal MIP series 405), which are stable compared to the prior CT chest on 07/02/2019. There is chronic atelectasis and/or scarring in right the lung, without significant change compared to the prior CT chest on 07/02/2019. There is chronic volume loss in the right hemithorax that is similar in appearance compared to the prior CT chest on 07/02/2019. Pleural space: There is a moderate size loculated right pleural effusion. No pneumothorax. Heart: No cardiomegaly or pericardial effusion. There are coronary artery calcifications. Lymph nodes: No enlarged lymph nodes. Bones/joints: There is a chronic mild to moderate inferior endplate compression fracture of C7, which is unchanged compared to the prior CT chest on 07/02/2019. There is an acute moderate anterior wedge compression fracture of T3, with linear sclerosis just beneath the inferior endplate of T3 that has developed since the prior CT chest on 07/02/2019. There is an mild anterior wedge compression fracture of T4, with development of an acute inferior endplate compression fracture along the anterior aspect of the inferior endplate of T4 that is new compared to the prior CT chest on 07/02/2019. There is an acute mild anterior wedge compression fracture of T5, with a vertical fracture line involving the midportion of the vertebral body, which is new compared to the prior CT chest on 07/02/2019. There is an acute mild anterior wedge compression fracture of T6, with visible fracture lines in the superior endplate that have developed since the prior CT chest on 07/02/2019. There are old healed fracture deformities involving the left posterior 9th, 10th, and 11th ribs. No suspicious osteolytic or osteoblastic lesion is noted. There are bridging paraspinal osteophytes at multiple contiguous levels in the thoracic spine, which are findings compatible with diffuse idiopathic skeletal hyperostosis. Soft tissues: Unremarkable. Other findings: For details regarding the abdominal and pelvic findings, refer to the CT abdomen and pelvis report on 08/17/2020. IMPRESSION: 1. No pulmonary embolism. 2. Moderate loculated right pleural effusion. No pneumothorax. 3. Acute compression fractures of T3, T4, T5, and T6 as detailed above, which are new compared to the prior CT chest on 07/02/2019. 4. Some of the ill-defined opacities in the left lower lobe have resolved since the prior CT chest on 07/02/2019, and there is a persistent irregular opacity measuring up to 1 cm in the left lower lobe and stable pulmonary nodules in the right lung compared to the prior CT chest on 07/02/2019. Fleischner Society follow up recommendations for incidental nodules are not indicated. Follow up per the patient's medical condition. Electronically signed by: Elliott Raya On 08/17/2020 19:41:53 PM
[2020-08-17] MEDS ORDERED: AUGM875T28 PO (21:39)
[2020-08-17] MEDS ORDERED: AZIT-12 PO (21:39)
[2020-08-17] MEDS ORDERED: PERC5TAB12 PO (21:39)
[2020-08-17] MEDS: AUGMENTIN 875 MG TAB PO ONE ×2 (21:47→22:11)
[2020-08-17] MEDS: AZITHROMYCIN 250MG TABLET PO ONE ×2 (21:48→22:11)
[2020-08-17] MEDS ORDERED: cefTRIAXone SOD 1 GM in D5W MINI-BAG PLUS 50 ML IV ONE (22:45)
[2020-08-17] MEDS ORDERED: MORPHINE 4 MG/ML 1ML VIAL/SYRINGE (J2270) IV ONE (22:45)
[2020-08-17] MEDS ORDERED: PEPC1TAB5 PEG (23:36)
[2020-08-17] MEDS ORDERED: FLOM0.4C39 PEG (23:36)
[2020-08-17] MEDS ORDERED: MILKSUS3 PEG (23:36)
[2020-08-17] MEDS ORDERED: SUCR1SS PEG (23:36)
[2020-08-17] MEDS ORDERED: DOXA1TAB42 PEG (23:36)
[2020-08-17] MEDS ORDERED: HYDR1CAP25 PEG (23:36)
[2020-08-17] MEDS ORDERED: PRED5TA PEG (23:39)
[2020-08-17] MEDS ORDERED: CEPH500C PEG (23:39)
[2020-08-17] MEDS ORDERED: ACYC400T PEG (23:39)
[2020-08-17] MEDS ORDERED: DIGO0.123 PEG (23:39)
--- NOTE | 2020-08-17 23:50 | HPEPDOC ---
[facility] Medical History & Physical Date of Admission Aug 17, 2020 Date of Service: Aug 17, 2020 Attending Physician: MONICA CASTELLANOS MD History and Physical CHIEF COMPLAINT: Back pain HISTORY OF PRESENT ILLNESS: Patient presents with a week long history of back pain. He notes no inciting event and is a poor historian, but feels like for at least the past 2 days he has had worsening upper back pain bilaterally with radiation to the front in what he describes as chest pain but on further quest ioning are the lateral surfaces of his upper ribs. He states he was planning on leaving the emergency department but then felt too weak to do so and has resigned himself to staying for pain control and assistance with deconditioning. While in the ED he also complained of SOB that he feels is related to his chest pain and admitted to intermittent abdominal pain. CTA of his chest demonstrated a moderate loculated pleural effusion on the right and stable findings on the left, ct abd/pelvis with contrast showed chronic findings documented below. The patient was saturating well on room air the entire time, had no elevations in his WBC count, lactic acid was normal, but did have a mildly elevated CRP. Patient was given one time dose of rocephin in the ED. PAST MEDICAL HISTORY: #. 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 LLL stage IIIB non small cell lung cancer previously on chemo but no treatment since 2018 #. Hx of AK #. Hypertensive heart disease. #. Bradycardia with a pacemaker. #. BPH #. GERD #. COPD PAST SURGICAL HISTORY: #. Left sided chest tube/pleurX catheter in 06/2019 for recurrent pleural effusion #. Dual chamber Pacemaker placed at [facility] #. G-tube insertion s/p dysphagia in setting of radiation induced throat injury (12/2018) #. Colectomy with colostomy, colostomy take down and reanastomosis. #. AAA repair SOCIAL HISTORY: Lives at home with his son who he is dependent on, previous 2PPD smoker, quit 5 years ago. Has not drank in the last 5 years since head/neck cancer diagnosis. No illicit drugs. FAMILY HISTORY: Mother w/ brain aneurysm Brother with lung cancer ALLERGIES: Please see below. REVIEW OF SYSTEMS: Constitutional: Denies fevers, chills, night sweats, or recent unexpected weight change HEENT: Denies Headaches, head trauma, No visual changes or eye pain, denies nose bleeds, admits to chronic difficulty swallowing. Cardiovascular: Denies chest pain, palpitations, or orthopnea Respiratory: Denies cough, wheezing, or shortness of breath GI: Denies nausea, vomiting, abdominal pain, diarrhea or constipation : Denies pain with urination or frequency Musculoskeletal: Denies joint pain or swelling Neuro / Psych: Denies muscle weakness or sensory loss Skin: Admits to anterior chest skin rashes HOME MEDICATIONS: Please see below. PHYSICAL EXAMINATION: VITAL SIGNS: See below GENERAL: Cachectic, but well appearing male, laying on cot in no acute distress HEENT: NC, AT, EOMI, no scleral icterus, moist mucous membranes, no pharyngeal erythema. NECK: No cervical or supraclavicular lymphadenopathy. No JVD. CARDIOVASCULAR: RRR, normal S1 and S2. No murmurs, gallops, rubs. LUNGS: Diminished to auscultation bilaterally R>L, with shortened expiratory phase. Dullness to percussion in RLL. ABDOMEN: Soft, non-tender, non-distended, bowel sounds present. No hepatosplenomegaly. No masses or eccymosis. No CVA tenderness. G tube present with surrounding area of erythema. EXTREMITIES: No swelling or edema SKIN: Multiple rasied, stuck on brown-yellow plaques along anterior chest NEUROLOGICAL: No focal or sensory deficits. CN II-XII grossly intact. PSYCHIATRIC: Normal mood and affect. LABORATORY DATA: See below. IMAGIN08/17/20 CT angiogam chest: IMPRESSION: 1. No pulmonary embolism. 2. Moderate loculated right pleural effusion. No pneumothorax. 3. Acute compression fractures of T3, T4, T5, and T6 as detailed above, which are new compared to the prior CT chest on 07/02/2019. 4. Some of the ill-defined opacities in the left lower lobe have resolved since the prior CT chest on 07/02/2019, and there is a persistent irregular opacity measuring up to 1 cm in the left lower lobe and stable pulmonary nodules in the right lung compared to the prior CT chest on 07/02/2019. Fleischner Society follow up recommendations for incidental nodules are not indicated. Follow up per the patient's medical condition. 08/17/2020 CT abd/pelvis w/ IV contrast only: IMPRESSION: 1. Cholelithiasis without CT evidence for cholecystitis. 2. Colonic diverticulosis without evidence for diverticulitis. 3. Enlarged prostate. 4. Patent aorto bi common iliac stent in place in an infrarenal abdominal aortic aneurysm that measures 3 cm x 3 cm in diameter, which is stable compared to the prior CT abdomen and pelvis on 06/03/2020. No rupture of the aneurysm or endoleak. 5. 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 6. Small amount of free fluid in the pelvis, which is similar in appearance compared to the prior CT abdomen and pelvis on 06/03/2020. MICROBIOLOGY: Please see below. ASSESSMENT/PLAN: Patient is a 79 year old male with a history of soft palate neck cancer and not fully treated lung cancer who presents with non-traumatic back pain that was found to be related to his thoracic compression fractures and admitted for pain control and physical therapy due to deconditioning. #. T3-T6 compression fractures -Admit for pain control, we discussed the possibility of this being an occult fracture due to metastasis, though the imaging does not support this I think it is a possibility in light of his lung cancer - Patient required 8 mg of morphine in the ED, patient takes 7.5-325 hydrocodone at home for chronic pain, will increase to 10-325 QID PRN with morphine for breakthrough pain #. Deconditioning -PT/OT ordered #. G-tube -ED PA has already spoken with Dr. Lara who is comfortable with it being replaced as an outpatient, dayteam should have woundcare look at the base of the g tube as it is erythematous 3 cm around where it exits and is in need of dressing changes #. Moderate R-sided pleural effusion - Per the CT report this represents a stable chronic finding #. LLL stage IIIB non small cell lung cancer previously on chemo but no treatment since 2019 - Patient is no longer interested in treatment and stop seeking treatment about a year ago. - Guaifenesin for handling secretions #. Hypertensive heart disease. -Continue digoxin, #. Bradycardia with a pacemaker. #. BPH -Will stop flomax as he is not supposed to be receiving this through his PEG tube. #. Anxiety -Continue xanax, hydroxyzine #. GERD -Continue home famotidine, carafate #. COPD -Continue home albuterol CODE status: DNR/DNI Vital Signs Vital Signs Date Time Temp Pulse Resp B/P (MAP) Pulse Ox O2 Delivery O2 Flow Rate FiO2 08/17/20 23:20 16 08/17/20 19:55 98.0 80 147/77 (100) 97 Room Air Laboratory Data Labs 24H Laboratory Tests 2 08/17/20 17:22: Immature Granulocyte % (Auto) 0.9, Neutrophils (%) (Auto) 79.2H, Lymphocytes (%) (Auto) 15.1L, Monocytes (%) (Auto) 4.1, Eosinophils (%) (Auto) 0.2, Basophils (%) (Auto) 0.5, Neutrophils # (Auto) 4.6, Lymphocytes # (Auto) 0.9L, Monocytes # (Auto) 0.2, Eosinophils # (Auto) 0.0, Basophils # (Auto) 0.0, Nucleated Red Bloo d Cells % (auto) 0.0, Immature Platelet Fraction 6.4, Erythrocyte Sedimentation Rate 49H, Anion Gap 5L, Glomerular Filtration Rate > 60.0, Calcium Level 9.7, Total Bilirubin 0.8, Direct Bilirubin 0.2, Aspartate Amino Transf (AST/SGOT) 30, Alanine Aminotransferase (ALT/SGPT) 46, Alkaline Phosphatase 143H, Total Creatine Kinase 28L, Creatine Kinase MB 1.4, Creatine Kinase MB Relative Index 5.00H, Troponin I < 0.02, C-Reactive Protein, Quantitative 6.39H, Total Protein 7.6, Albumin 3.4, Albumin/Globulin Ratio 0.8, Lipase 137 08/17/20 17:37: Lactic Acid Level 1.9 08/17/20 20:29: Urine Color YELLOW, Urine Appearance CLEAR, Urine pH 8.0, Urine Specific Dobson 1.029, Urine Protein NEGATIVE, Urine Glucose (UA) NEGATIVE, Urine Ketones NEGATIVE, Urine Blood NEGATIVE, Urine Nitrite NEGATIVE, Urine Bilirubin NEGATIVE, Urine Urobilinogen 0.2, Urine Leukocyte Esterase NEGATIVE, Urine WBC (Auto) 0, Urine RBC (Auto) 2, Urine Hyaline Casts (Auto) 0, Urine Bacteria (Auto) NEGATIVE, Urine Squamous Epithelial Cells 0, Urine Mucus (Auto) SMALL, Urine Sperm (Auto) 08/17/20 22:55: Coronavirus (COVID-19)(PCR) NEGATIVE CBC/BMP Laboratory Tests 08/17/20 17:22 Microbiology Microbiology 08/17/20 Blood Culture, Received Pending 08/17/20 Blood Culture, Received Pending Home Medications Scheduled Acyclovir (Acyclovir) 400 Mg Tablet, 400 MG PEG BID Alprazolam (Alprazolam) 0.5 Mg Tablet, 0.5 MG PEG BID Cephalexin (Cephalexin) 500 Mg Capsule, 500 MG PEG BID STARTED 08/11/20 Digoxin (Digoxin) 125 Mcg Tablet, 125 MCG PEG Q2D Doxazosin Mesylate (Doxazosin Mesylate) 1 Mg Tablet, 1 MG PEG DAILY Lactose-Reduced Food/Fiber (Jevity 1.2 Lazaro Liquid) 237 Ml Liquid, 1 LIQ PEG QID TAKES 3 TO 4 TIMES DAILY DEPENDING ON HOW STOMACH FEELS Prednisone (Prednisone) 5 Mg Tablet, 5 MG PEG DAILY Sucralfate (Carafate) 1 Gm/10 Ml Oral.susp, 10 ML PEG ACHS Tamsulosin HCl (Flomax) 0.4 Mg Capsule, 0.4 MG PEG DAILY Scheduled PRN Albuterol Sulfate (Albuterol Sulfate Hfa) 8.5 Gm Hfa.aer.ad, 2 PUFF INH QID PRN for WHEEZING Famotidine (Pepcid) 20 Mg Tablet, 20 MG PEG DAILY PRN for ACID REFLUX Guaifenesin (Guaifenesin) 100 Mg/5 Ml Liquid, 25 ML PEG BID PRN for CONGESTION Hydrocodone/Acetaminophen (Hydrocodone-Acetamin 7.5-325) 1 Each Tablet, 1 TAB PEG QID PRN for PAIN Hydroxyzine Pamoate (Hydroxyzine Pamoate) 25 Mg Capsule, 25 MG PEG QID PRN for ITCHING Magnesium Hydroxide (Milk of Magnesia) 400 Mg/5 Ml Oral.susp, 15 ML PEG DAILY PRN for CONSTIPATION Allergies Coded Allergies: No Known Allergies (Unverified , 06/03/20) A-FIB/CHADSVASC A-FIB History Current/History of A-Fib/PAF?: No GME ATTESTATION GME ATTESTATION My faculty preceptor for this patient encounter was physically present during the encounter and was fully available. All aspects of the patient interview, examination, medical decision making process, and medical care plan development were reviewed and approved by the faculty preceptor. The faculty preceptor is aware and concurs with the plan as stated in the body of this note and will attest to such by his/her cosignature. ERINN CAMPOS DO Aug 17, 2020 23:50
[2020-08-17 23:55] LABS: DIGOXIN LEVEL 0.6 NG/ML (0.5-2.0)
--- OUTSIDE RECORDS SUMMARY | 2020-08-17 23:56 | CCD ---
Author Author [facility] Organization [facility] Address Unknown Phone Unavailable Care Team Providers Care Associate Principal Name Role Phone SEARS, A JASPER DO [...] is protected by Article 27-F of the [place] Public Health law. If you continue you may have access to information: Regarding HIV / AIDS; Provided by facilities licensed or operated by the [facility] Office of Mental Health; or Provided by the [facility] Office for People With Developmental Disabilities. If such information is present, then the following [facility] mandated warning applies: This information has [...] law may result in a fine or [place] health [place] sentence or both. A general authorization for the release of medical or other information is NOT sufficient authorization for further disc losure. Family History Family Member Name Family Member Gender Family Member Status Date o f Status Description Data Source(s) Unknown Female Problem [facility] Unknown Male Encounters Encounter Providers Location Date Indications Data Source(s ) Outpatient Attender: Sofía GRAVES Main Office 09/20/2019 11:45:0 0 AM EST [facility] ([facility]) Outpatient Attender: Sofía GRAVES Main Office 08/22/2019 01:45:0 0 PM EST [facility] ([facility]) Outpatient Referrer: JASPER PETERSEN DO 07/10/2019 07:23:00 PM EST [facility] 12/26/2018 01:00:00 AM EDT - 019 03:54:13 PM EST [facility] ([facility]) Medications Medication Brand Name Start Date Product Form Dose Route Admi nistrative Instructions Pharmacy Instructions Status Indications Reaction Description Data Source(s) Cephalexin 500 MG Oral Capsule CEPHALEXIN 08/11/2020 12:00:00 AM EST capsule 20 TAKE ONE CAPSULE BY MOUTH TWICE A DAY TAKE ONE CAPSULE BY [facility] TWICE A DAY SOLD: 08/12/2020 [...] EST ORAL active [facility] ([facility]) 125 mcg (0.125 mg) 09/24/2019 12:00:00 AM EST tablet 45 TAKE ONE TABLET BY MOUTH EVERY OTHER DAY TAKE ONE TABLET BY MOUTH EVERY OTHER DAY SOLD: 12/11/2019 [facility] 125 mcg (0.125 mg) 09/24/2019 12:00:00 AM EST tablet 45 TAKE ONE TABLET BY MOUTH EVERY OTHER DAY TAKE ONE TABLET BY MOUTH EVERY OTHER DAY SOLD: 09/24/2019 [facility] Hydroxyzine Hydrochloride 10 MG Oral Tablet Hydroxyzine HCL 09/19/2019 12:00:00 AM EST active [facility] ([facility]) Doxazosin 1 MG Oral Tablet [...] DAILY DOSE = TWO TABLETS SOLD: 09/16/2019 [facility] Guaifenesin 20 MG/ML Oral Solution 100 mg/5 mL GUAIFENESIN 08/21/2019 12:00:00 AM EST liquid 473 TAKE 25ML BY MOUTH TWO TIMES A DAY TAKE 25ML BY MOUTH TWO TIMES A DAY SOLD: 08/21/2019 [facility] 200 ACTUAT Albuterol 0.09 MG/ACTUAT Metered Dose Inhaler [Pr oAir] Proair HFA 08/20/2019 12:00:00 AM EST ORAL active [facility] ([facility]) Magnesium Hydroxide 80 MG/ML Oral Suspension Milk Of Magnesi a 08/20/2019 12:00:00 AM EST active M [facility] ([facility]) Acetaminophen 325 MG / Hydrocodone Bitartrate 7.5 MG O ral Tablet Hydrocodone-Acetaminophen 08/20/2019 12:00:00 AM EST ORAL active [facility] ([facility]) Famotidine 40 MG Oral Tablet Famotidine 08/20/2019 12:00:00 AM EST active [facility] ([facility]) Diphenhydramine Hydrochloride 2.5 MG/ML Oral Solution [Benadryl] Benadryl Allergy Childrens 08/20/2019 12:00:00 AM EST activ e [facility] ([facility]) Sucralfate 100 MG/ML Oral Suspension [Carafate] Carafate 08/20/2019 12:00:00 AM EST completed [facility] ([facility]) Jevity 1.5 Lazaro 08/20/2019 12:00:00 AM EST act cici [facility] ([facility]) 24 HR Diltiazem Hydrochloride 120 MG Extended Release Oral C apsule Diltiazem CD 08/20/2019 12:00:00 AM EST completed [facility] ([facility]) Guaifenesin 20 MG/ML Oral Solution Guaifenesin 08/20/2019 12:00:00 AM EST active [facility] ([facility]) Docusate Sodium 100 MG Oral Capsule [Colace] Colace 12:00:00 AM EST completed [facility] ([facility]) 24 HR metoprolol succinate 50 MG Extended Release Oral Tablet Metoprolol Succinate ER 08/20/2019 12:00:00 AM EST completed [facility] ([facility]) Doxazosin 2 MG Oral Tablet Doxazosin Mesylate 08/20/2019 12:00:[address] completed [facility] ([facility]) Alprazolam 0.5 MG Oral Tablet Alprazolam 08/20/2019 12:00:00 AM EST active [facility] ([facility]) Tamsulosin hydrochloride 0.4 MG Oral Capsule Tamsulosin HCL 08/20/2019 12:00:00 AM EST active [facility] ([facility] Alprazolam 0.5 MG Oral Tablet ALPRAZOLAM 08/16/2019 12:00:00 AM EST ta blet 60 TAKE ONE TABLET BY MOUTH TWICE A DAY MAXIMUM DAILY DOSE = 2 TAKE ONE TABLET BY MOUTH TWICE A DAY MAXIMUM DAILY DOSE = 2 SOLD: 08/17/2019 [facility] 7.5-325 mg 08/15/2019 12:00:00 AM EST tablet 60 TAKE ONE TABLET BY MOUTH TWICE A DAY, MAXIMUM DAILY DOSE = TWO TABLETS TAKE ONE TABLET BY MOUTH TWICE A DAY, MAXIMUM DAILY DOSE = TWO TABLETS SOLD: 08/16/2019 [facility] Alprazolam 0.5 MG Oral Tablet ALPRAZOLAM [...] DAILY DOSE = TWO TABLETS SOLD: 07/18/2019 [facility] Doxazosin 1 MG Oral Tablet DOXAZOSIN MESYLATE 07/03/2019 12:00:00 A M EST tablet 60 TAKE TWO TABLETS BY MOUTH EVERY DAY AT B EDTIME TAKE TWO TABLETS BY MOUTH EVERY DAY AT BEDTIME SOLD: 07/05/2019 [facility] 90 mcg/actuation 05/07/2019 12:00:00 AM [...] AM EDT ORAL completed [facility] ([facility]) 5 mg 03/06/2019 12:00:00 AM EDT tablet 30 TAKE ONE TABLET VIA G-TUBE ONCE DAILY TAKE ONE TABLET VIA G-TUBE ONCE DAILY SOLD: 06/18/2019 [facility] 12 HR Diltiazem Hydrochloride 120 MG Extended Release Oral Capsule Diltiazem HCL ER 02/28/2019 12:00:00 AM EDT ORAL completed [facility] ([facility]) 100 mg/5 mL 12/27/2018 12:00:00 AM EDT liquid 1500 TAKE 25 MILLILITERS (500MG) BY MOUTH TWICE DAILY TAKE 25 MILLILITERS (500MG) BY MOUTH TWICE DAILY SOLD: 06/26/2019 [facility] Insurance Providers Payer name Policy type / Coverage type Policy ID Covered libertarian ID Covered libertarian's relationship to lucas Policy Lucas Plan Information MEDICARE BLUE PPO 306 [id number] SP [id number] MEDICARE [id number] SP [id number] EXCELLUS BCBS B [id number] S VYM [id number] EXCELLUS MEDICARE BLUE PPO G [id number] Self [id number] MEDICARE [id number] SP [id number] A MEDICARE BLUE PPO 306 [id number] SP [id number] BCBS Medicare Blue U/W Commercial [id number] Self [id number] MEDICARE BLUE PPO 306 [id number] SP [id number] Medicare Blue Ppo Commercial [id number] Self [id number] Medicare Blue Ppo Commercial [id number] Self [id number] MEDICARE BLUE PPO 306 [id number] SP [id number] Medicare Blue Ppo Commercial [id number] Self [id number] BCBS - Medicare Blue Ppo Commercial Self EXCELLUS BCBS MEDICARE [id number] [place] [id number] EXCELLUS BCBS P [id number] S [id number] [place] P[place] [id number] [employer] [id number] Surgeries/Procedures Procedure Description Date Indications Data Source(s) INTERROGATION EVAL REMOTE </90 D 1/2/ZINC PLATE GRAINER LEAD PM 02/04 12:00:00 AM EDT [facility] ([facility]) INTERROGATION REMOTE </90 D WEB DATABASE DEVELOPER REVIEW 02/05/20 12:00:00 AM EDT [facility] ([facility]) INTERROGATION EVAL REMOTE </90 D 1/2/ZINC PLATE GRAINER LEAD PM 07/25 12:00:00 AM EST [facility] ([facility]) INTERROGATION REMOTE </90 D WEB DATABASE DEVELOPER REVIEW 07/25/20 12:00:00 AM EST [facility] ([facility]) Results ID Date Data Source [id number] 06/03/2020 08:24:00 AM EDT [facility] ([facility]) Name Value Range Interpretation Code Description Data Dulce rce(s) Supporting Document(s) Troponin Laboratory test result [facility] ([facility]) ID Date Data Source [id number] 06/03/2020 08:24:00 AM EDT [facility] ([facility]) Name Value Range Interpretation Code Description Data Dulce rce(s) Supporting Document(s) Alkaline phosphatase [Enzymatic activity/volume] in Serum or Plasma 1 04 [facility] ([facility]) Alanine aminotransferase [Enzymatic activity/volume] in Serum or Pl asma 21 [facility] ([facility]) Aspartate aminotransferase [Enzymatic activity/volume] in Serum or Plasma 15 [facility] ([facility]) Bilirubin.direct [Mass/volume] in Serum or Plasma 0.1 [facility] ([facility]) Protein [Mass/volume] in Serum or Plasma 6.7 [facility] ([facility]) Bilirubin.total [Mass/volume] in Serum or Plasma 0.5 [facility] ([facility]) Albumin [Mass/volume] in Serum or Plasma 2.9 [facility] ([facility]) Cholesterol [Mass/volume] in Serum or Plasma [facility] ID Date Data Source [id number] 06/03/2020 08:24:00 AM EDT [facility] ([facility]) Name Value Range Interpretation Code Description Data Dulce rce(s) Supporting Document(s) Lipoprotein lipase [Enzymatic activity/volume] in Serum or Plasma 182 [facility] ([facility]) ID Date Data Source [id number] 06/03/2020 08:24:00 AM EDT [facility] ([facility]) Name Value Range Interpretation Code Description Data Dulce rce(s) Supporting Document(s) White Blood Count 4.4 4.0-10.0 [facility] ([facility]) Platelets 107 150-450 [facility] Red Blood Count 3.68 4.30-6.10 [facility] ([facility]) Hematocrit 36.0 [facility] ([facility]) Hemoglobin 10.4 [facility] ([facility]) ID Date Data Source [id number] 09/21/2019 08:06:00 AM EST [facility] Name Value [...] mg/dL 8.6-10.2 [facility] ID Date Data Source [id number] 07/02/2019 08:27:00 AM EST [facility] ([facility]) Name Value Range Interpretation Code Description Data Dulce rce(s) Supporting Document(s) Blood Urea Nitrogen 10 7-18 [facility] ([facility]) Glucose 94 70-100 [facility] Potassium 4.3 3.5-5.1 [facility] Sodium 144 136-145 [facility] Creatinine 0.60 0.70-1.30 [facility] ([facility]) Calcium 8.4 8.8-10.2 [facility] Chloride 114 98-107 [facility] Carbon Dioxide 24 21-32 [facility] ([facility]) Glomerular filtration rate/1.73 sq M.pre dicted [Volume Rate/Area] in Serum or Plasma by Creatinine-based formula (MDRD) >60.0 [facility] ([facility]) ID Date Data Source [id number] 07/02/2019 08:27:00 AM EST [facility] ([facility]) Name Value Range Interpretation Code Description Data Dulce rce(s) Supporting Document(s) Red Blood Count 2.60 4.30-6.10 [facility] ([facility]) White Blood Count 2.8 4.0-10.0 [facility] ([facility]) Hematocrit 27.8 [facility] ([facility]) Hemoglobin 8.7 [facility] ([facility]) Platelets 106 150-450 [facility] Procedure Social History Code Duration Value Status Description Data Source(s ) Smoking 09/20/2019 12:00:00 AM EST Patient is a former smoker completed Patient is a former smoker [facility] ([facility]) Vital Signs ID Date Data Source UNK Name Value Range Interpretation Code Description Data Source(s) Diastolic blood pressure--sitting 62 mm[Hg] 62 mm[Hg] [facility] ([facility]) adult cuff, Ra Systolic blood pressure--sitting 96 mm[Hg] 96 mm[Hg] [facility] ([facility]) adult cuff, Ra Heart rate 100 /min 100 /min [facility] ([facility]) Body mass index (BMI) [Ratio] 18.6 kg/m2 18.6 k g/m2 [facility] ([facility]) Body height 69 [in_i] 69 [in_i] [facility] ([facility]) 5'9" Body weight 126.00 [lb_av] 126.00 [lb_av] MEDEN T ([facility]) Diastolic blood pressure--sitting 66 mm[Hg] 66 mm[Hg] [facility] ([facility]) adult cuff, Ra Systolic blood pressure--sitting 96 mm[Hg] 96 mm[Hg] [facility] ([facility]) adult cuff, Ra Heart rate 78 /min 78 /min [facility] Body mass index (BMI) [Ratio] 18.5 kg/m2 18.5 k g/m2 [facility] ([facility]) Body height 69 [in_i] 69 [in_i] [facility] ([facility]) 5'9" Body weight 125.00 [lb_av] 125.00 [lb_av] MEDEN T ([facility])
[2020-08-18] MEDS ORDERED: ACETAMINOPHEN TAB 650MG DOSE (2X325MG) PEG PRN (01:00)
[2020-08-18] MEDS ORDERED: ALBUTEROL 90 MCG/ACT 8GM HFA INHALER INH PRN (01:00)
[2020-08-18] MEDS ORDERED: NORCO, ANEXSIA 5/325MG TABLET (HYDROcodone/ACETAMINOPHEN) PO PRN (01:00)
[2020-08-18] MEDS ORDERED: hydrOXYzine 25 MG TAB PEG PRN (01:00)
[2020-08-18] MEDS ORDERED: guaiFENesin SYRUP 200 MG/10 ML UDC PEG PRN (01:00)
[2020-08-18] MEDS ORDERED: FAMOTIDINE 20 MG TAB PEG PRN (01:00)
[2020-08-18 01:44] VITALS: BP 142/80
[2020-08-18] MEDS: MORPHINE 2 MG/ML 1ML VIAL (J2270) IV PRN ×2 (05:11→09:23)
[2020-08-18 06:00] VITALS: BP 122/73
[2020-08-18 06:27] LABS: HEMATOCRIT 34.3 % (42.0-52.0); HEMOGLOBIN 9.8 g/dl (13.5-17.5); MEAN CORPUSCULAR HEMOGLOBIN 28.2 pg (27.0-33.0); MEAN CORPUSCULAR HGB CONC 28.6 g/dl (32.0-36.5); MEAN CORPUSCULAR VOLUME 98.6 fl (80.0-96.0); RED BLOOD COUNT 3.48 10^6/uL (4.30-6.10); WHITE BLOOD COUNT 4.7 10^3/uL (4.0-10.0)
[2020-08-18 06:29] LABS: PLATELET COUNT, AUTOMATED 84 10^3/uL (150-450)
[2020-08-18] MEDS: SUCRALFATE SUSP 1GM/10ML UD PEG SCH ×4 (07:30→20:01)
[2020-08-18] MEDS ORDERED: ENTER DRUG NAME HERE (PATIENT'S OWN MED) PEG SCH (09:00)
[2020-08-18] MEDS ORDERED: ENOXAPARIN 40MG/0.4ML SYRINGE (J1650 PER 10MG) SC SCH (09:00)
[2020-08-18] MEDS ORDERED: PNEUMOCOCCAL VACCINE 0.5ML SYRINGE (PNEUMOVAX 23) IM ONE (09:00)
[2020-08-18] MEDS ORDERED: TAMSULOSIN 0.4 MG CAP XX SCH (09:00)
--- NOTE | 2020-08-18 09:02 | ECGEPIP ---
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
[2020-08-18] MEDS: ONDANSETRON 4MG/2ML VIAL IV PRN (09:26)
[2020-08-18 09:51] LABS: BLOOD UREA NITROGEN 28 MG/DL (7-18); CALCIUM LEVEL 8.6 MG/DL (8.8-10.2); CARBON DIOXIDE LEVEL 31 MEQ/L (21-32); CHLORIDE LEVEL 109 MEQ/L (98-107); CREATININE FOR GFR 0.79 MG/DL (0.70-1.30); GLOMERULAR FILTRATION RATE > 60.0 (>42); GLUCOSE, FASTING 98 MG/DL (70-100); SODIUM LEVEL 144 MEQ/L (136-145)
[2020-08-18] MEDS: DIGOXIN 0.125 MG TAB PEG SCH (10:49)
[2020-08-18] MEDS: ALPRAZolam 0.5 MG TAB PEG SCH ×2 (10:49→20:02)
[2020-08-18] MEDS: CEPHALEXIN 500 MG CAP PEG SCH ×2 (10:49→20:02)
[2020-08-18] MEDS: ACYCLOVIR 200 MG CAPSULE PEG SCH ×2 (10:49→20:02)
[2020-08-18] MEDS: DOXAZOSIN MESYLATE 1 MG TAB PEG SCH (10:50)
[2020-08-18] MEDS: predniSONE 5 MG TAB PEG SCH (10:50)
[2020-08-18] MEDS: NORCO, ANEXSIA 5/325MG TABLET (HYDROcodone/ACETAMINOPHEN) PEG PRN (11:12)
[2020-08-18 14:00] VITALS: BP 115/61
--- NOTE | 2020-08-18 15:14 | IPNPDOC ---
Date Seen The patient was seen on 08/18/20. Progress Note SUBJECTIVE: Surgery evaluated, not using feeding tube for 24 hours. Then likely starting continuous feeding vs. bolus feeds- likely changing feeding tube 08/20/20. Feels "sick" today but denies chest pain, shortness of breath, vomiting. OBJECTIVE: PHYSICAL EXAMINATION: VITAL SIGNS: See below GENERAL: Cachectic, NAD. AAOx 3 HEENT: NC, AT, EOMI, no scleral icterus, moist mucous membranes NECK: No cervical or supraclavicular lymphadenopathy. No JVD. CARDIOVASCULAR: RRR, normal S1 and S2. No murmurs, gallops, rubs. LUNGS: CTAB, no W/R/R ABDOMEN: Soft, non-tender, non-distended, bowel sounds present. No hepatosplenomegaly. No masses or eccymosis. No CVA tenderness. feeding tube in place in left abd, surrounding area of erythema, tender to touch EXTREMITIES: No swelling or edema SKIN: Multiple rasied, stuck on brown-yellow plaques along anterior chest NEUROLOGICAL: No focal or sensory deficits. CN II-XII grossly intact. PSYCHIATRIC: Normal mood and affect. LABORATORY DATA: See below. MICROBIO: BCx pending IMAGIN08/17/20 CT angiogam chest: 1. No pulmonary embolism. 2. Moderate loculated right pleural effusion. No pneumothorax. 3. Acute compression fractures of T3, T4, T5, and T6 as detailed above, which are new compared to the prior CT chest on 07/02/2019. 4. Some of the ill-defined opacities in the left lower lobe have resolved since the prior CT chest on 07/02/2019, and there is a persistent irregular opacity measuring up to 1 cm in the left lower lobe and stable pulmonary nodules in the right lung compared to the prior CT chest on 07/02/2019. Fleischner Society follow up recommendations for incidental nodules are not indicated. Follow up per the patient's medical condition. 08/17/2020 CT abd/pelvis w/ IV contrast only: 1. Cholelithiasis without CT evidence for cholecystitis. 2. Colonic diverticulosis without evidence for diverticulitis. 3. Enlarged prostate. 4. Patent aorto bi common iliac stent in place in an infrarenal abdominal aortic aneurysm that measures 3 cm x 3 cm in diameter, which is stable compared to the prior CT abdomen and pelvis on 06/03/2020. No rupture of the aneurysm or endoleak. 5. 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 6. Small amount of free fluid in the pelvis, which is similar in appearance compared to the prior CT abdomen and pelvis on 06/03/2020. ASSESSMENT/PLAN: Patient is a 79 year old male with a history of soft palate neck cancer and not fully treated lung cancer who presents with non-traumatic back pain that was found to be related to his thoracic compression fractures and admitted for pain control and physical therapy due to deconditioning. # T3-T6 compression fractures -Admit for pain control, we discussed the possibility of this being an occult fracture due to metastasis, though the imaging does not support this I think it is a possibility in light of his lung cancer -C/w current pain control regimen -Ortho consulted to see (Dr. Kwong), f/u recommendations for ambulation, pain control #Leaking G-tube -Per Dr. Bland, patient will need feeding tube replaced likely 08/20/20. -Holding feedings for 24 hours and can start with continuous vs. bolus feedings for him -Erythema and redness around feeding tube is likely 2/2 to gastric acid leaking. -F/u surgery recommendations # Deconditioning, acute on chronic -Acute 2/2 to compression fractures above -Chronic illness -PT/OT to see today -Nutritional optimization # Moderate R-sided pleural effusion - Per the CT report this represents a stable chronic finding # LLL stage IIIB non small cell lung cancer - Previously on chemo but no treatment since 2019 - Patient is no longer interested in treatment and stop seeking treatment about a year ago. - Guaifenesin for handling secretions # Hypertensive heart disease. # Bradycardia with a pacemaker. # BPH -Previously on flomax # Anxiety -When using feeding tube, continue xanax, hydroxyzine #GERD -On IV protonix now -When taking feeding tube meds, c/w famotidine, carafate # COPD -Stable -Continue home albuterol DVT px -Lovenox DISPOSITION: Currently inpatient status. Surgery and ortho consulted, f/u recommendations. Plan is hopeful for home when medically improved. PT/OT ordered. VS, I&O, 24H, [facility] Vital Signs/I&O Vital Signs Date Time Temp Pulse Resp B/P (MAP) Pulse Ox O2 Delivery O2 Flow Rate FiO2 08/18/20 14:00 97.8 76 18 115/61 (79) 92 Room Air I&O- Last 24 Hours up to 6 AM 08/18/20 05:59 Intake Total 1050 ml Balance 1050 ml Laboratory Data 24H LABS Laboratory Tests 2 08/17/20 17:22: Immature Granulocyte % (Auto) 0.9, Neutrophils (%) (Auto) 79.2H, Lymphocytes (%) (Auto) 15.1L, Monocytes (%) (Auto) 4.1, Eosinophils (%) (Auto) 0.2, Basophils (%) (Auto) 0.5, Neutrophils # (Auto) 4.6, Lymphocytes # (Auto) 0.9L, Monocytes # (Auto) 0.2, Eosinophils # (Auto) 0.0, Basophils # (Auto) 0.0, Nucleated Red Blood Cells % (auto) 0.0, Immature Platelet Fraction 6.4, Erythrocyte Sedimentation Rate 49H, Anion Gap 5L, Glomerular Filtration Rate > 60.0, Calcium Level 9.7, Total Bilirubin 0.8, Direct Bilirubin 0.2, Aspartate Amino Transf (AST/SGOT) 30, Alanine Aminotransferase (ALT/SGPT) 46, Alkaline Phosphatase 143H, Total Creatine Kinase 28L, Creatine Kinase MB 1.4, Creatine Kinase MB Relative Index 5.00H, Troponin I < 0.02, C-Reactive Protein, Quantitative 6.39H, Total Protein 7.6, Albumin 3.4, Albumin/Globulin Ratio 0.8, Lipase 137, Digoxin Level 0.6 08/17/20 17:37: Lactic Acid Level 1.9 08/17/20 20:29: Urine Color YELLOW, Urine Appearance CLEAR, Urine pH 8.0, Urine Specific [place] 1.029, Urine Protein NEGATIVE, Urine Glucose (UA) NEGATIVE, Urine Ketones NEGATIVE, Urine Blood NEGATIVE, Urine Nitrite NEGATIVE, Urine Bilirubin NEGATIVE, Urine Urobilinogen 0.2, Urine Leukocyte Esterase NEGATIVE, Urine WBC (Auto) 0, Urine RBC (Auto) 2, Urine Hyaline Casts (Auto) 0, Urine Bacteria (Auto) NEGATIVE, Urine Squamous Epithelial Cells 0, Urine Mucus (Auto) SMALL, Urine Sperm (Auto) 08/17/20 22:55: Coronavirus (COVID-19)(PCR) NEGATIVE 08/18/20 05:30: Anion Gap 4L, Glomerular Filtration Rate > 60.0, Calcium Level 8.6L 08/18/20 05:35: Nucleated Red Blood Cells % (auto) 0.0 CBC/BMP Laboratory Tests 08/17/20 17:22 08/18/20 05:30 08/18/20 05:35 Microbiology Microbiology 08/17/20 Blood Culture, Received Pending 08/17/20 Blood Culture, Received Pending Current Medications Current Medications Medications (Trade) Dose Ordered Sig/Mallorie Route PRN Reason Start Time Stop Time Status Last Admin Dose Admin Acetaminophen (Tylenol Tab) 650 mg Q4H PRN PEG MILD PAIN OR FEVER 08/18/20 01:00 Acetaminophen/ Hydrocodone Bitart ([place], Anexsia 5/325) 2 tab Q6H PRN PEG MODERATE/SEVERE PAIN (PS 1-7) 08/18/20 13:00 08/18/20 11:12 Acetaminophen/ Hydrocodone Bitart ([place], Anexsia 5/325) 2 tab Q6H PRN PO MODERATE/SEVERE PAIN (PS 1-7) 08/18/20 01:00 08/18/20 09:30 DC Acyclovir (Zovirax) 400 mg BID PEG 08/18/20 09:00 08/18/20 10:49 Albuterol Sulfate (Proventil, Ventolin Hfa) 2 puff QID PRN INH WHEEZING 08/18/20 01:00 Alprazolam (Xanax) 0.5 mg BID PEG 08/18/20 09:00 08/18/20 10:49 Cephalexin Monohydrate (Keflex) 500 mg BID PEG 08/18/20 09:00 08/18/20 10:49 Digoxin (Lanoxin) 0.125 mg Q2D PEG 08/18/20 09:00 08/18/20 10:49 Doxazosin Mesylate (Cardura) 1 mg DAILY PEG 08/18/20 09:00 08/18/20 10:50 Enoxaparin Sodium (Lovenox) 40 mg DAILY SC 08/18/20 09:00 08/18/20 10:51 Famotidine (Pepcid) 20 mg DAILY PRN PEG ACID REFLUX 08/18/20 01:00 Guaifenesin (Robitussin) 25 ml BID PRN PEG CONGESTION 08/18/20 01:00 Home Med (Med Rec Complete!) ASDIRECTED XX 08/17/20 23:45 08/17/20 23:51 DC Hydroxyzine HCl (Atarax) 25 mg QID PRN PEG ITCHING 08/18/20 01:00 Magnesium Hydroxide (Milk Of Magnesia) 15 ml DAILY PRN PEG CONSTIPATION 08/18/20 01:00 Morphine Sulfate (Morphine Sulfate Inj) 2 mg Q3H PRN IV breakthrough pain 08/18/20 01:00 08/18/20 09:23 Morphine Sulfate (Morphine Sulfate Inj) 4 mg Q30M PRN IV SEVERE PAIN (PS 8-10) 08/17/20 17:15 08/18/20 01:25 DC 08/17/20 17:42 Ondansetron HCl (ZOFRAN INJection) 4 mg Q6H PRN IV NAUSEA 08/18/20 01:00 08/18/20 09:26 Patient Own Medication (Patient'S Own Med) 1 ea QID PEG 08/18/20 09:00 08/18/20 01:31 DC Prednisone (Deltasone) 5 mg DAILY PEG 08/18/20 09:00 08/18/20 10:50 Sucralfate (Carafate Suspension) 1 gm ACHS PEG 08/18/20 07:30 08/18/20 11:13 Tamsulosin HCl (Flomax) 0.4 mg DAILY XX 08/18/20 09:00 08/18/20 03:29 DC Zinc Oxide (Boudreauxs Butt Paste) To PEG tube insert... TID TOP 08/18/20 16:00 Allergies Coded Allergies: No Known Allergies (Unverified , 06/03/20) Gay Renee MD Aug 18, 2020 15:14
[2020-08-18] MEDS: BOUDREAUX'S BUTT PASTE TOP SCH ×2 (16:59→20:41)
[2020-08-18] MEDS: PANTOPRAZOLE 40MG VIAL (C9113 PER 1) IV SCH (17:02)
[2020-08-18] MEDS: D5W/0.45% SODIUM CHLORIDE 1,000 ML IV SCH (17:49)
[2020-08-18] MEDS ORDERED: MORPHINE 2 MG/ML 1ML VIAL (J2270) IV ONE ×2 (21:15→21:45)
[2020-08-18 22:00] VITALS: BP 95/56
[2020-08-19] MEDS: D5W/0.45% SODIUM CHLORIDE 1,000 ML IV SCH ×3 (03:43→21:45)
[2020-08-19] MEDS ORDERED: MORPHINE 4 MG/ML 1ML VIAL/SYRINGE (J2270) IV ONE ×2 (04:00→23:15)
[2020-08-19 06:00] VITALS: BP 100/56
[2020-08-19 06:10] LABS: HEMATOCRIT 31.4 % (42.0-52.0); MEAN CORPUSCULAR HEMOGLOBIN 28.7 pg (27.0-33.0); MEAN CORPUSCULAR HGB CONC 28.7 g/dl (32.0-36.5); RED BLOOD COUNT 3.14 10^6/uL (4.30-6.10); WHITE BLOOD COUNT 3.5 10^3/uL (4.0-10.0)
[2020-08-19 06:38] LABS: PLATELET COUNT, AUTOMATED 66 10^3/uL (150-450)
[2020-08-19 06:48] LABS: ALBUMIN 2.5 GM/DL (3.2-5.2); ALT/SGPT 31 U/L (12-78); BILIRUBIN,TOTAL 0.4 MG/DL (0.2-1.0); BLOOD UREA NITROGEN 27 MG/DL (7-18); CALCIUM LEVEL 8.3 MG/DL (8.8-10.2); CARBON DIOXIDE LEVEL 30 MEQ/L (21-32); CHLORIDE LEVEL 111 MEQ/L (98-107); CREATININE FOR GFR 0.73 MG/DL (0.70-1.30); GLOMERULAR FILTRATION RATE > 60.0 (>42); GLUCOSE, FASTING 88 MG/DL (70-100); POTASSIUM SERUM 3.8 MEQ/L (3.5-5.1); SODIUM LEVEL 145 MEQ/L (136-145); TOTAL PROTEIN 5.7 GM/DL (6.4-8.2)
[2020-08-19] MEDS: ALPRAZolam 0.5 MG TAB PEG SCH ×2 (08:36→21:00)
[2020-08-19] MEDS: SUCRALFATE SUSP 1GM/10ML UD PEG SCH ×4 (08:36→21:00)
[2020-08-19] MEDS: predniSONE 5 MG TAB PEG SCH (08:37)
[2020-08-19] MEDS: CEPHALEXIN 500 MG CAP PEG SCH ×2 (08:37→21:00)
[2020-08-19] MEDS: ACYCLOVIR 200 MG CAPSULE PEG SCH ×2 (08:37→21:00)
[2020-08-19] MEDS: NORCO, ANEXSIA 5/325MG TABLET (HYDROcodone/ACETAMINOPHEN) PEG PRN (08:37)
[2020-08-19] MEDS: DOXAZOSIN MESYLATE 1 MG TAB PEG SCH (08:38)
[2020-08-19] MEDS: BOUDREAUX'S BUTT PASTE TOP SCH ×3 (08:38→21:00)
[2020-08-19] MEDS ORDERED: MORPHINE 2 MG/ML 1ML VIAL (J2270) IV PRN (09:00)
--- NOTE | 2020-08-19 11:19 | CR ---
CONSULTATION DATE: 08/19/2020 CHIEF COMPLAINT: Thoracic spine compression fracture/back pain. HISTORY OF PRESENT ILLNESS: Patient presents with multiple weeks to months history of back pain in his mid thoracic area, which seems to be worsening recently. He does not report a history of recent fall, but he does have some difficulty ambulating chronically going on for months to years. He has not had any loss of bowel or bladder control. Reports no perianal numbness. He is just difficult to ambulate. No numbness or tingling or weakness in his legs. INCIDENTAL FINDINGS: Reported a thoracic spine compression fracture. PAST MEDICAL HISTORY: Per the hospitalist note includes LLL stage 3B non-small cell lung cancer; no treatment since 2019, previously on chemotherapy, hypertensive heart disease, bradycardia with pacemaker, history of TX, SVC and soft palate, BPH, GERD, COPD. PAST SURGICAL HISTORY: Please refer to the hospitalist note. SOCIAL HISTORY: Please refer to the hospitalist note. MEDICATIONS: Please refer to the hospitalist note. PHYSICAL EXAMINATION: This is a thin appearing 79-year-old man, appears alert and oriented x3. He responds appropriately. We had him turn over in bed. No obvious pain or sensory gaps of the cervical, thoracic or lumbar spine. Sensation L2 to S1 in the lower extremity 2/2 and strong motor function L2 to S1 5/5. He does have a sore right toe. IMAGING STUDIES: CT angiography chest was performed on 08/17/2020. This shows chronic mild to moderate inferior end-plate compression fracture of C7; unchanged compared to prior CT chest in 2019. There is an acute moderate anterior wedge compression fracture of T3 with linear sclerosis just beneath the inferior end-plate of T3, that has developed since prior CT chest. Mild anterior wedge compression fracture of T4, acute inferior end-plate compression fracture along the anterior aspect of the inferior end-plate of T4, that is new. There is an acute mild anterior wedge compression fracture at T5 with vertical fracture line involving mid portion of the vertebral body. Acute mild anterior wedge compression fracture at T6, that developed since prior CT chest. Old fractures of the left posterior ninth, tenth and eleventh rib. No suspicious lesion noted. Findings consistent with diffuse idiopathic skeletal hyperostosis. ASSESSMENT AND PLAN: This man has new compression fractures of T3, T4, T5 and T6. These appear to be single column fractures. For this, I recommend thoracolumbar spinal orthosis as needed and weightbearing as tolerated as well as repeat radiographs to ensure stability. After my own assessment, this appears to be a nonsurgical issue and from what I understand, the patient has turned down further workup or assessment related to his lung cancer. I do recommend the hospitalist be in touch with the spine surgeon to review the images as well to confirm this is a nonoperative problem. Patient appears neurologically intact. Please let me know if there are further questions. Patient may be weightbearing as tolerated and out of bed as tolerated. MTDD
[2020-08-19 14:00] VITALS: BP 100/57
--- NOTE | 2020-08-19 14:35 | IPNPDOC ---
Date Seen The patient was seen on 08/19/20. Progress Note SUBJECTIVE: Started continuous Jevity feeding per surgery, resumed pills through feeding tube. OR tomorrow for changing of tube. Restarted PO pain meds. No events overnight. OBJECTIVE: PHYSICAL EXAMINATION: VITAL SIGNS: See below GENERAL: Cachectic, NAD. AAOx 3 HEENT: NC, AT, EOMI, no scleral icterus, moist mucous membranes NECK: No cervical or supraclavicular lymphadenopathy. No JVD. CARDIOVASCULAR: RRR, normal S1 and S2. No murmurs, gallops, rubs. LUNGS: CTAB, no W/R/R ABDOMEN: Soft, non-tender, non-distended, bowel sounds present. No hepatosplenomegaly. No masses or eccymosis. No CVA tenderness. feeding tube in place in left abd EXTREMITIES: No swelling or edema SKIN: Multiple rasied, stuck on brown-yellow plaques along anterior chest. surrounding area of erythema around feeding tube, tender to touch- appears slightly improved NEUROLOGICAL: No focal or sensory deficits. CN II-XII grossly intact. PSYCHIATRIC: Normal mood and affect. LABORATORY DATA: See below. MICROBIOLOGY: BCx pending IMAGIN08/17/20 CT angiogram chest: 1. No pulmonary embolism. 2. Moderate loculated right pleural effusion. No pneumothorax. 3. Acute compression fractures of T3, T4, T5, and T6 as detailed above, which are new compared to the prior CT chest on 07/02/2019. 4. Some of the ill-defined opacities in the left lower lobe have resolved since the prior CT chest on 07/02/2019, and there is a persistent irregular opacity measuring up to 1 cm in the left lower lobe and stable pulmonary nodules in the right lung compared to the prior CT chest on 07/02/2019. Fleischner Society fol low up recommendations for incidental nodules are not indicated. Follow up per the patient's medical condition. 08/17/2020 CT abd/pelvis w/ IV contrast only: 1. Cholelithiasis without CT evidence for cholecystitis. 2. Colonic diverticulosis without evidence for diverticulitis. 3. Enlarged prostate. 4. Patent aorto bi common iliac stent in place in an infrarenal abdominal aortic aneurysm that measures 3 cm x 3 cm in diameter, which is stable compared to the prior CT abdomen and pelvis on 06/03/2020. No rupture of the aneurysm or endoleak. 5. 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 6. Small amount of free fluid in the pelvis, which is similar in appearance compared to the prior CT abdomen and pelvis on 06/03/2020. ASSESSMENT/PLAN: Patient is a 79 year old male with a history of soft palate ne ck cancer and not fully treated lung cancer who presents with non-traumatic back pain that was found to be related to his thoracic compression fractures and admitted for pain control and physical therapy due to deconditioning. # T3-T6 compression fractures -Ortho has seen, recommend WBAT -Ortho recommends f/u after discharge with spine surgeon, no emergent need -C/w current pain control regimen -PT/OT #Leaking G-tube -Per Dr. Bland, resumed continuous Jevity tube feeds 08/20/20. -Erythema and redness around feeding tube is likely 2/2 to gastric acid leaking. -OR 08/20/20 for feeding tube change -F/u surgery recommendations #Orthostatic hypotension likely 2/2 to decreased intake -Has not been on tube feedings for many days -Dizziness with ambulation with PT, hopefully this improves as he tolerates feedings toward goal rate -C/w PT/OT #Thrombocytopenia, chronic -Since 2019 -Stopped lovenox as PLTs have dropped some -Monitor CBC daily # Deconditioning, acute on chronic -Acute 2/2 to compression fractures above -Chronic illness -PT/OT -Nutritional optimization # Moderate R-sided pleural effusion - Per the CT report this represents a stable chronic finding # LLL stage IIIB non small cell lung cancer - Previously on chemo but no treatment since 2019 - Patient is no longer interested in treatment and stop seeking treatment about a year ago. - Guaifenesin for handling secretions # Hypertensive heart disease. # Bradycardia with a pacemaker. # BPH -Previously on flomax # Anxiety -C/w xanax, hydroxyzine #GERD -PPI, famotidine, carafate # COPD -Stable -Continue home albuterol DVT px -TEDS, SCD DISPOSITION: Currently inpatient status. Surgery and ortho consulted. Plan is hopeful for home when medically improved. VS, I&O, 24H, Fishbone Vital Signs/I&O Vital Signs Date Time Temp Pulse Resp B/P (MAP) Pulse Ox O2 Delivery O2 Flow Rate FiO2 08/19/20 14:00 98.3 78 17 100/57 (71) 96 Room Air I&O- Last 24 Hours up to 6 AM 08/19/20 05:59 Intake Total 500 ml Output Total 625 ml Balance -125 ml Laboratory Data 24H LABS Laboratory Tests 2 08/19/20 05:29: Nucleated Red Blood Cells % (auto) 0.0, Immature Platelet Fraction 5.6, Anion Gap 4L, Glomerular Filtration Rate > 60.0, Calcium Level 8.3L, Total Bilirubin 0.4, Aspartate Amino Transf (AST/SGOT) 21, Alanine Aminotransferase (ALT/SGPT) 31, Alkaline Phosphatase 104, Total Protein 5.7#L, Albumin 2.5#L, Albumin/Globulin Ratio 0.8 CBC/BMP Laboratory Tests 08/19/20 05:29 Microbiology Microbiology 08/17/20 Blood Culture - Preliminary, Resulted No growth after 24 hours . All specim... 08/17/20 Blood Culture - Preliminary, Resulted No growth after 24 hours . All specim... Current Medications Current Medications Medications (Trade) Dose Ordered Sig/Mallorie Route PRN Reason Start Time Stop Time Status Last Admin Dose Admin Acetaminophen (Tylenol Tab) 650 mg Q4H PRN PEG MILD PAIN OR FEVER 08/18/20 01:00 Acetaminophen/ Hydrocodone Bitart (Anexs[place], [place] 7.5mg/325mg) 1 tab QID PRN PEG PAIN 08/19/20 14:45 Acetaminophen/ Hydrocodone Bitart ([place], Anexsia 5/325) 2 tab Q6H PRN PEG MODERATE/SEVERE PAIN (PS 1-7) 08/18/20 13:00 08/19/20 08:48 DC 08/19/20 08:37 Acetaminophen/ Hydrocodone Bitart ([place], Anexsia 5/325) 2 tab Q6H PRN PO MODERATE/SEVERE PAIN (PS 1-7) 08/18/20 01:00 08/18/20 09:30 DC Acyclovir (Zovirax) 400 mg BID PEG 08/18/20 09:00 08/19/20 08:37 Albuterol Sulfate (Proventil, Ventolin Hfa) 2 puff QID PRN INH WHEEZING 08/18/20 01:00 Alprazolam (Xanax) 0.5 mg BID PEG 08/18/20 09:00 08/19/20 08:36 Cephalexin Monohydrate (Keflex) 500 mg BID PEG 08/18/20 09:00 08/19/20 08:37 Dextrose/Sodium Chloride 1,000 ml @ 100 mls/hr Q10H IV 08/18/20 17:45 08/19/20 11:44 Digoxin (Lanoxin) 0.125 mg Q2D PEG 08/18/20 09:00 08/18/20 10:49 Doxazosin Mesylate (Cardura) 1 mg DAILY PEG 08/18/20 09:00 08/19/20 08:38 Enoxaparin Sodium (Lovenox) 40 mg DAILY SC 08/18/20 09:00 08/19/20 08:11 DC 08/18/20 10:51 Famotidine (Pepcid) 20 mg DAILY PRN PEG ACID REFLUX 08/18/20 01:00 Guaifenesin (Robitussin) 25 ml BID PRN PEG CONGESTION 08/18/20 01:00 Home Med (Med Rec Complete!) ASDIRECTED XX 08/17/20 23:45 08/17/20 23:51 DC Hydroxyzine HCl (Atarax) 25 mg QID PRN PEG ITCHING 08/18/20 01:00 Magnesium Hydroxide (Milk Of Magnesia) 15 ml DAILY PRN PEG CONSTIPATION 08/18/20 01:00 Morphine Sulfate (Morphine Sulfate Inj) 2 mg Q3H PRN IV breakthrough pain 08/18/20 01:00 08/18/20 17:29 DC 08/18/20 09:23 Morphine Sulfate (Morphine Sulfate Inj) 2 mg Q4H PRN IV MODERATE PAIN (PS 5-7) 08/19/20 09:00 08/19/20 14:33 DC Morphine Sulfate (Morphine Sulfate Inj) 4 mg Q30M PRN IV SEVERE PAIN (PS 8-10) 08/17/20 17:15 08/18/20 01:25 DC 08/17/20 17:42 Ondansetron HCl (ZOFRAN INJection) 4 mg Q6H PRN IV NAUSEA 08/18/20 01:00 08/18/20 09:26 Pantoprazole Sodium (Protonix) 40 mg Q24H IV 08/18/20 16:00 08/18/20 17:02 Patient Own Medication (Patient'S Own Med) 1 ea QID PEG 08/18/20 09:00 08/18/20 01:31 DC Prednisone (Deltasone) 5 mg DAILY PEG 08/18/20 09:00 08/19/20 08:37 Sucralfate (Carafate Suspension) 1 gm ACHS PEG 08/18/20 07:30 08/19/20 11:35 Tamsulosin HCl (Flomax) 0.4 mg DAILY XX 08/18/20 09:00 08/18/20 03:29 DC Zinc Oxide (Boudreauxs Butt Paste) To PEG tube insert... TID TOP 08/18/20 16:00 08/19/20 08:38 Allergies Coded Allergies: No Known Allergies (Unverified , 06/03/20) Gay Renee MD Aug 19, 2020 14:35
[2020-08-19] MEDS ORDERED: ANEXSIA, NORCO 7.5MG/325MG TABLET(HYDROCODONE/APAP) PEG PRN (14:45)
--- NOTE | 2020-08-19 15:53 | CR ---
CONSULTATION DATE: 08/18/2020 REASON FOR CONSULTATION: G-tube malfunction. HISTORY OF PRESENT ILLNESS: Briefly, the patient is a 79-year-old male who was admitted to the hospital for failure to thrive, low back pain, that has been progressively worsening. 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 He had a PEG tube placed for dysphagia and he has had some difficulties with leakage from the PEG tube for a while now and has had chronic drainage around the opening with irritation of the skin at the site. PAST MEDICAL HISTORY: The patient's past medical history is significant for: 1. History of myocardial infarction. 2. History of hypertension. 3. History of bradycardia with pacemaker. 4. History of benign prostatic hypertrophy. 5. History of gastroesophageal reflux disease. 6. History of COPD. PAST SURGICAL HISTORY: The patient's past surgical history is significant for: 1. History of previous chest tube PleurX catheters for recurrent pleural effusions. 2. History of pacemaker placement. 3. History of G-tube insertion. 4. Colectomy with colonoscopy. 5. Colostomy takedown and anastomosis. 6. Triple abdominal aortic aneurysm repair. PHYSICAL EXAMINATION: GENERAL APPEARANCE: A frail, elderly male who looks much older than stated age. LUNGS: Clear anteriorly although quite diminished posteriorly with decreased breath sounds on the right side more than the right. HEART: Regular. ABDOMEN: Soft, nondistended, but he has a lot of erythema around his G-tube site with no active drainage at this time. IMPRESSION AND PLAN: The patient has a gastrostomy tube that needs to be removed/replaced. We will start some dressing changes and after this starts to clear up, we will plan on removal of this and replace it with a different gastrostomy tube. This can be performed in the outpatient area, and sedation is not necessary at this time. We will schedule this for and add it to our schedule.
[2020-08-19] MEDS: PANTOPRAZOLE 40MG VIAL (C9113 PER 1) IV SCH (16:48)
[2020-08-19 22:00] VITALS: BP 104/59
[2020-08-20] MEDS ORDERED: MORPHINE 2 MG/ML 1ML VIAL (J2270) IV ONE ×2 (05:00→11:00)
[2020-08-20 05:27] LABS: HEMOGLOBIN 8.4 g/dl (13.5-17.5); MEAN CORPUSCULAR HEMOGLOBIN 28.4 pg (27.0-33.0); RED BLOOD COUNT 2.96 10^6/uL (4.30-6.10); WHITE BLOOD COUNT 2.8 10^3/uL (4.0-10.0)
[2020-08-20 05:29] LABS: PLATELET COUNT, AUTOMATED 62 10^3/uL (150-450)
[2020-08-20 06:00] VITALS: BP 111/57
[2020-08-20 06:01] LABS: ALBUMIN 2.2 GM/DL (3.2-5.2); ALT/SGPT 28 U/L (12-78); BILIRUBIN,TOTAL 0.5 MG/DL (0.2-1.0); BLOOD UREA NITROGEN 16 MG/DL (7-18); CALCIUM LEVEL 8.1 MG/DL (8.8-10.2); CARBON DIOXIDE LEVEL 30 MEQ/L (21-32); CHLORIDE LEVEL 108 MEQ/L (98-107); CREATININE FOR GFR 0.62 MG/DL (0.70-1.30); GLOMERULAR FILTRATION RATE > 60.0 (>42); GLUCOSE, FASTING 84 MG/DL (70-100); POTASSIUM SERUM 3.3 MEQ/L (3.5-5.1); SODIUM LEVEL 139 MEQ/L (136-145); TOTAL PROTEIN 5.5 GM/DL (6.4-8.2)
[2020-08-20] MEDS: SUCRALFATE SUSP 1GM/10ML UD PEG SCH ×4 (07:30→21:46)
[2020-08-20] MEDS ORDERED: SILVER NITRATE APPLICATOR XX ONE (08:30)
[2020-08-20] MEDS ORDERED: BUPIVACAINE HCL 0.25% 10ML VIAL XX ONE (08:45)
[2020-08-20] MEDS: BOUDREAUX'S BUTT PASTE TOP SCH ×3 (09:00→21:50)
[2020-08-20] MEDS: KCL 10MEQ/100ML SWI (KRUN) 10 MEQ in IV 1 EA IV SCH ×4 (09:00→18:45)
[2020-08-20] MEDS: CEPHALEXIN 500 MG CAP PEG SCH ×2 (09:00→21:50)
[2020-08-20] MEDS: ACYCLOVIR 200 MG CAPSULE PEG SCH ×2 (09:00→21:47)
[2020-08-20] MEDS: ALPRAZolam 0.5 MG TAB PEG SCH ×2 (09:00→21:47)
[2020-08-20 09:22] LABS: FERRITIN 718 NG/ML (26-388); IRON (FE) 54 UG/DL (65-175); PERCENT SATURATION 35.5 % (19.7-50.0); TOTAL IRON BINDING CAPACITY 152 UG/DL (250-450)
[2020-08-20] MEDS ORDERED: SILVER NITRATE APPLICATOR As Ordered ONE (09:33)
[2020-08-20] MEDS ORDERED: BUPIVACAINE HCL 0.25% 10ML VIAL As Ordered ONE (09:33)
[2020-08-20] MEDS: D5W/0.45% SODIUM CHLORIDE 1,000 ML IV SCH (09:45)
[2020-08-20] MEDS ORDERED: MORPHINE 4 MG/ML 1ML VIAL/SYRINGE (J2270) IV PRN (11:15)
[2020-08-20 13:39] VITALS: BP 148/71
[2020-08-20] MEDS ORDERED: KCL 10MEQ IN STERILE WATER 100ML As Ordered ONE ×2 (15:40→18:43)
[2020-08-20] MEDS: predniSONE 5 MG TAB PEG SCH (15:50)
[2020-08-20] MEDS: DIGOXIN 0.125 MG TAB PEG SCH (15:52)
[2020-08-20] MEDS: DOXAZOSIN MESYLATE 1 MG TAB PEG SCH (15:52)
[2020-08-20] MEDS: PANTOPRAZOLE 40MG VIAL (C9113 PER 1) IV SCH (15:53)
--- NOTE | 2020-08-20 18:29 | IPNPDOC ---
Date Seen The patient was seen on 08/20/20. Progress Note SUBJECTIVE: Feedings stopped later in day on 08/19/20 due to leaking tube. OR today for new feeding tube placement, resume Jevity continuous per surgery recommendations. Pain control was a challenge for us today. He denies chest pain, shortness of breath. OBJECTIVE: PHYSICAL EXAMINATION: VITAL SIGNS: See below GENERAL: Cachectic, uncomfortable in pain. AAOx 3 HEENT: NC, AT, EOMI, no scleral icterus, moist mucous membranes NECK: No cervical or supraclavicular lymphadenopathy. No JVD. CARDIOVASCULAR: RRR, normal S1 and S2. No murmurs, gallops, rubs. LUNGS: CTAB, no W/R/R ABDOMEN: Soft, non-tender, non-distended, bowel sounds present. No hepatosplenomegaly. No masses or eccymosis. No CVA tenderness. feeding tube in place in left abd EXTREMITIES: No swelling or edema SKIN: Multiple raised, stuck on brown-yellow plaques along anterior chest. surrounding area of erythema around feeding tube, tender to touch- appears slightly improved NEUROLOGICAL: No focal or sensory deficits. CN II-XII grossly intact. LABORATORY DATA: See below. MICROBIOLOGY: BCx x 2 sets: NG IMAGIN08/17/20 CT angiogram chest: 1. No pulmonary embolism. 2. Moderate loculated right pleural effusion. No pneumothorax. 3. Acute compression fractures of T3, T4, T5, and T6 as detailed above, which are new compared to the prior CT chest on 07/02/2019. 4. Some of the ill-defined opacities in the left lower lobe have resolved since the prior CT chest on 07/02/2019, and there is a persistent irregular opacity measuring up to 1 cm in the left lower lobe and stable pulmonary nodules in the right lung compared to the prior CT chest on 07/02/2019. Fleischner Society follow up recommendations for incidental nodules are not indicated. Follow up per the patient's medical condition. 08/17/2020 CT abd/pelvis w/ IV contrast only: 1. Cholelithiasis without CT evidence for cholecystitis. 2. Colonic diverticulosis without evidence for diverticulitis. 3. Enlarged prostate. 4. Patent aorto bi common iliac stent in place in an infrarenal abdominal aortic aneurysm that measures 3 cm x 3 cm in diameter, which is stable compared to the prior CT abdomen and pelvis on 06/03/2020. No rupture of the aneurysm or endoleak. 5. 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 6. Small amount of free fluid in the pelvis, which is similar in appearance compared to the prior CT abdomen and pelvis on 06/03/2020. ASSESSMENT/PLAN: Patient is a 79 year old male with a history of soft palate neck cancer and not fully treated lung cancer who presents with non-traumatic back pain that was found to be related to his thoracic compression fractures and admitted for pain control and physical therapy due to deconditioning. # T3-T6 compression fractures -Ortho has seen, recommend WBAT -Ortho recommends f/u after discharge with spine surgeon, no emergent need -C/w current pain control regimen -PT/OT hopefully will resue on 08/21/20 #Leaking G-tube -Taken to OR today for feeding tube replacement -Advancing continuous Jevity tube feeds and free water IN ADDITION to IVFs , can use PEG for meds -Erythema and redness around feeding tube is likely 2/2 to gastric acid leaking. -F/u surgery recommendations #Anemia, chronic -F/u iron studies, occult blood -CBC daily #Orthostatic hypotension likely 2/2 to decreased intake -No new episodes since several days ago -Hopefully improves with increasing of tube feedings #Thrombocytopenia, chronic -Since 2019 -Stopped lovenox as PLTs have dropped some -Monitor CBC daily # Deconditioning, acute on chronic 2/2 to compression fractures above -Chronic illness -PT/OT -Nutritional optimization # Moderate R-sided pleural effusion - Per the CT report this represents a stable chronic finding -97% on RA # LLL stage IIIB non small cell lung cancer - Previously on chemo but no treatment since 2019 - Patient is no longer interested in treatment and stop seeking treatment about a year ago. - Guaifenesin for handling secretions # Hypertensive heart disease. # Bradycardia with a pacemaker. # BPH -Previously on flomax # Anxiety -C/w xanax, hydroxyzine #GERD -PPI, famotidine, carafate # COPD -Stable -Continue home albuterol DVT px -TEDS, SCD DISPOSITION: Currently inpatient status. Surgery following closely. Has not been participating with PT/OT will attempt again tomorrow. Plan is hopeful for home when medically improved. VS, I&O, 24H, Fishbone Vital Signs/I&O Vital Signs Date Time Temp Pulse Resp B/P (MAP) Pulse Ox O2 Delivery O2 Flow Rate FiO2 08/20/20 16:10 17 08/20/20 15:52 142/72 08/20/20 15:52 82 08/20/20 13:39 98.8 08/20/20 06:00 97 Room Air I&O- Last 24 Hours up to 6 AM 08/20/20 06:00 Intake Total 700 ml Output Total 1600 ml Balance -900 ml Laboratory Data 24H LABS Laboratory Tests 2 08/20/20 05:09: Nucleated Red Blood Cells % (auto) 0.0, Anion Gap 1L, Glomerular Filtration Rate > 60.0, Calcium Level 8.1L, Iron Level 54L, Total Iron Binding Capacity 152L, Transferrin % Saturation 35.5, Ferritin 718H, Total Bilirubin 0.5, Aspartate Amino Transf (AST/SGOT) 17, Alanine Aminotransferase (ALT/SGPT) 28, Alkaline Phosphatase 91, Total Protein 5.5L, Albumin 2.2L, Albumin/Globulin Ratio 0.7 CBC/BMP Laboratory Tests 08/20/20 05:09 Microbiology Microbiology 08/17/20 Blood Culture - Preliminary, Resulted No Growth after 72 hours. All specime... 08/17/20 Blood Culture - Preliminary, Resulted No Growth after 72 hours. All specime... Current Medications Current Medications Medications (Trade) Dose Ordered Sig/Mallorie Route PRN Reason Start Time Stop Time Status Last Admin Dose Admin Acetaminophen (Tylenol Tab) 650 mg Q4H PRN PEG MILD PAIN OR FEVER 08/18/20 01:00 Acetaminophen/ Hydrocodone Bitart (Anexsia, [place] 7.5mg/325mg) 1 tab QID PRN PEG PAIN 08/19/20 14:45 08/20/20 11:07 DC 08/19/20 16:49 Acetaminophen/ Hydrocodone Bitart ([place], Anexsia 5/325) 2 tab Q6H PRN PEG MODERATE/SEVERE PAIN (PS 1-7) 08/18/20 13:00 08/19/20 08:48 DC 08/19/20 08:37 Acetaminophen/ Hydrocodone Bitart ([place], Anexsia 5/325) 2 tab Q6H PRN PO MODERATE/SEVERE PAIN (PS 1-7) 08/18/20 01:00 08/18/20 09:30 DC Acyclovir (Zovirax) 400 mg BID PEG 08/18/20 09:00 08/19/20 08:37 Albuterol Sulfate (Proventil, Ventolin Hfa) 2 puff QID PRN INH WHEEZING 08/18/20 01:00 Alprazolam (Xanax) 0.5 mg BID PEG 08/18/20 09:00 08/19/20 08:36 Cephalexin Monohydrate (Keflex) 500 mg BID PEG 08/18/20 09:00 08/19/20 08:37 Dextrose/Sodium Chloride 1,000 ml @ 100 mls/hr Q10H IV 08/18/20 17:45 08/19/20 21:45 Digoxin (Lanoxin) 0.125 mg Q2D PEG 08/18/20 09:00 08/20/20 15:52 Doxazosin Mesylate (Cardura) 1 mg DAILY PEG 08/18/20 09:00 08/20/20 15:52 Enoxaparin Sodium (Lovenox) 40 mg DAILY SC 08/18/20 09:00 08/19/20 08:11 DC 08/18/20 10:51 Famotidine (Pepcid) 20 mg DAILY PRN PEG ACID REFLUX 08/18/20 01:00 Guaifenesin (Robitussin) 25 ml BID PRN PEG CONGESTION 08/18/20 01:00 08/20/20 17:16 Home Med (Med Rec Complete!) ASDIRECTED XX 08/17/20 23:45 08/17/20 23:51 DC Hydroxyzine HCl (Atarax) 25 mg QID PRN PEG ITCHING 08/18/20 01:00 Magnesium Hydroxide (Milk Of Magnesia) 15 ml DAILY PRN PEG CONSTIPATION 08/18/20 01:00 Morphine Sulfate (Morphine Sulfate Inj) 2 mg Q3H PRN IV breakthrough pain 08/18/20 01:00 08/18/20 17:29 DC 08/18/20 09:23 Morphine Sulfate (Morphine Sulfate Inj) 2 mg Q3HP PRN IV SEVERE PAIN (PS 8-10) 08/20/20 11:15 08/20/20 15:49 Morphine Sulfate (Morphine Sulfate Inj) 2 mg Q4H PRN IV MODERATE PAIN (PS 5-7) 08/19/20 09:00 08/19/20 14:33 DC Morphine Sulfate (Morphine Sulfate Inj) 4 mg Q30M PRN IV SEVERE PAIN (PS 8-10) 08/17/20 17:15 08/18/20 01:25 DC 08/17/20 17:42 Ondansetron HCl (ZOFRAN INJection) 4 mg Q6H PRN IV NAUSEA 08/18/20 01:00 08/18/20 09:26 Pantoprazole Sodium (Protonix) 40 mg Q24H IV 08/18/20 16:00 08/20/20 15:53 Patient Own Medication (Patient'S Own Med) 1 ea QID PEG 08/18/20 09:00 08/18/20 01:31 DC Potassium Chloride 10 meq/ IV Miscellaneous Supplies 100 ml @ 100 mls/hr Q1H IV 08/20/20 09:00 08/20/20 12:59 DC 08/20/20 15:50 Prednisone (Deltasone) 5 mg DAILY PEG 08/18/20 09:00 08/20/20 15:50 Sucralfate (Carafate Suspension) 1 gm ACHS PEG 08/18/20 07:30 08/20/20 17:16 Tamsulosin HCl (Flomax) 0.4 mg DAILY XX 08/18/20 09:00 08/18/20 03:29 DC Zinc Oxide (Boudreauxs Butt Paste) To PEG tube insert... TID TOP 08/18/20 16:00 08/20/20 15:53 Allergies Coded Allergies: No Known Allergies (Unverified , 06/03/20) Gay Renee MD Aug 20, 2020 18:29
[2020-08-20] MEDS: MOM 30ML SUSPENSION UDC PEG PRN (18:44)
[2020-08-20] MEDS: DOCUSATE SOD LIQ 100MG/10ML UDC GT SCH (21:46)
[2020-08-20] MEDS: ANEXSIA, NORCO 7.5MG/325MG TABLET(HYDROCODONE/APAP) PEG PRN (21:50)
[2020-08-20 22:00] VITALS: BP 108/74
[2020-08-21] MEDS: D5W/0.45% SODIUM CHLORIDE 1,000 ML IV SCH ×4 (00:56→20:04)
[2020-08-21] MEDS: ONDANSETRON 4MG/2ML VIAL IV PRN (04:28)
[2020-08-21] MEDS: ANEXSIA, NORCO 7.5MG/325MG TABLET(HYDROCODONE/APAP) PEG PRN ×2 (04:30→10:31)
[2020-08-21 06:00] VITALS: BP 113/65
[2020-08-21 06:05] LABS: HEMATOCRIT 30.3 % (42.0-52.0); HEMOGLOBIN 9.1 g/dl (13.5-17.5); MEAN CORPUSCULAR HEMOGLOBIN 28.8 pg (27.0-33.0); MEAN CORPUSCULAR VOLUME 95.9 fl (80.0-96.0); RED BLOOD COUNT 3.16 10^6/uL (4.30-6.10); WHITE BLOOD COUNT 3.3 10^3/uL (4.0-10.0)
[2020-08-21 06:07] LABS: PLATELET COUNT, AUTOMATED 79 10^3/uL (150-450)
[2020-08-21 06:30] LABS: ALBUMIN 2.3 GM/DL (3.2-5.2); ALT/SGPT 37 U/L (12-78); BILIRUBIN,TOTAL 0.6 MG/DL (0.2-1.0); BLOOD UREA NITROGEN 11 MG/DL (7-18); CALCIUM LEVEL 8.2 MG/DL (8.8-10.2); CARBON DIOXIDE LEVEL 27 MEQ/L (21-32); CHLORIDE LEVEL 106 MEQ/L (98-107); CREATININE FOR GFR 0.62 MG/DL (0.70-1.30); GLOMERULAR FILTRATION RATE > 60.0 (>42); GLUCOSE, FASTING 100 MG/DL (70-100); POTASSIUM SERUM 3.4 MEQ/L (3.5-5.1); SODIUM LEVEL 139 MEQ/L (136-145); TOTAL PROTEIN 5.7 GM/DL (6.4-8.2)
[2020-08-21] MEDS ORDERED: POTASSIUM CHLORIDE 10% LIQ 20 MEQ/15 ML UDC PEG ONE (08:45)
[2020-08-21] MEDS: DOXAZOSIN MESYLATE 1 MG TAB PEG SCH (09:00)
[2020-08-21] MEDS: DOCUSATE SOD LIQ 100MG/10ML UDC GT SCH ×2 (10:25→20:50)
[2020-08-21] MEDS: SUCRALFATE SUSP 1GM/10ML UD PEG SCH ×5 (10:25→20:50)
[2020-08-21] MEDS: CEPHALEXIN 500 MG CAP PEG SCH ×2 (10:26→20:50)
[2020-08-21] MEDS: ACYCLOVIR 200 MG CAPSULE PEG SCH ×2 (10:26→20:50)
[2020-08-21] MEDS: ALPRAZolam 0.5 MG TAB PEG SCH ×2 (10:26→20:50)
[2020-08-21] MEDS: predniSONE 5 MG TAB PEG SCH (10:30)
[2020-08-21] MEDS: BOUDREAUX'S BUTT PASTE TOP SCH ×3 (10:43→20:51)
[2020-08-21] MEDS: FERROUS SULFATE 300MG/5ML UDC LIQUID PEG SCH ×2 (10:43→20:50)
[2020-08-21] MEDS ORDERED: NORCO, ANEXSIA 5/325MG TABLET (HYDROcodone/ACETAMINOPHEN) PO PRN (11:45)
[2020-08-21] MEDS ORDERED: HYDROcodone/APAP LIQUID 7.5-325MG 15ML UDC (LORTAB ELIXIR) PEG PRN (12:15)
[2020-08-21] MEDS ORDERED: HYDROcodone/APAP LIQUID 7.5-325MG 15ML UDC (LORTAB ELIXIR) PO PRN (12:15)
[2020-08-21 14:00] VITALS: BP 103/51
[2020-08-21] MEDS: HYDROcodone/APAP LIQUID 7.5-325MG 15ML UDC (LORTAB ELIXIR) PEG PRN (17:36)
[2020-08-21] MEDS: PANTOPRAZOLE 40MG VIAL (C9113 PER 1) IV SCH (17:36)
--- NOTE | 2020-08-21 20:48 | IPNPDOC ---
Date Seen The patient was seen on 08/21/20. Progress Note SUBJECTIVE: Nausea today but tolerating tube feedings ok with little residuals. Added PRN pain med for severe pain as back pain is not controlled. He denies chest pain, shortness of breath. OBJECTIVE: PHYSICAL EXAMINATION: VITAL SIGNS: See below GENERAL: Cachectic, uncomfortable in bed due to pain, nausea . AAOx 3 HEENT: NC, AT, EOMI, no scleral icterus, moist mucous membranes NECK: No cervical or supraclavicular lymphadenopathy. No JVD. CARDIOVASCULAR: RRR, normal S1 and S2. No murmurs, gallops, rubs. LUNGS: CTAB, no W/R/R ABDOMEN: Soft, non-tender, non-distended, bowel sounds present. No hepatosplenomegaly. No masses or eccymosis. No CVA tenderness. feeding tube in place in left abd EXTREMITIES: No swelling or edema SKIN: Multiple raised, stuck on brown-yellow plaques along anterior chest. surrounding area of erythema around feeding tube healing well- appears slightly improved NEUROLOGICAL: No focal or sensory deficits. CN II-XII grossly intact. LABORATORY DATA: See below. MICROBIOLOGY: BCx x 2 sets: NG IMAGIN08/17/20 CT angiogram chest: 1. No pulmonary embolism. 2. Moderate loculated right pleural effusion. No pneumothorax. 3. Acute compression fractures of T3, T4, T5, and T6 as detailed above, which are new compared to the prior CT chest on 07/02/2019. 4. Some of the ill-defined opacities in the left lower lobe have resolved since the prior CT chest on 07/02/2019, and there is a persistent irregular opacity measuring up to 1 cm in the left lower lobe and stable pulmonary nodules in the right lung compared to the prior CT chest on 07/02/2019. Fleischner Society follow up recommendations for incidental nodules are not indicated. Follow up per the patient's medical condition. 08/17/2020 CT abd/pelvis w/ IV contrast only: 1. Cholelithiasis without CT evidence for cholecystitis. 2. Colonic diverticulosis without evidence for diverticulitis. 3. Enlarged prostate. 4. Patent aorto bi common iliac stent in place in an infrarenal abdominal aortic aneurysm that measures 3 cm x 3 cm in diameter, which is stable compared to the prior CT abdomen and pelvis on 06/03/2020. No rupture of the aneurysm or endoleak. 5. 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 6. Small amount of free fluid in the pelvis, which is similar in appearance compared to the prior CT abdomen and pelvis on 06/03/2020. ASSESSMENT/PLAN: Patient is a 79 year old male with a history of soft palate neck cancer and not fully treated lung cancer who presents with non-traumatic back pain that was found to be related to his thoracic compression fractures and admitted for pain control and physical therapy due to deconditioning. # T3-T6 compression fractures -Ortho has seen, recommend WBAT -Ortho recommends f/u after discharge with spine surgeon, no emergent need -Added oxycodone/acetaminophen 10-325 mg for severe pain in addition to moderate pain control with 7.5-325 mg dosing. -PT: Hopes of d/c home with family providing 27/02 -C/w PT/OT while here #Leaking G-tube -Feeding tube functioning well but patient complained of nausea without vomiting -Advancing continuous Jevity tube feeds and free water . 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 - Guaifenesin for handling secretions # Hypertensive heart disease. # Bradycardia with a pacemaker. # BPH -Previously on flomax # Anxiety -C/w xanax, hydroxyzine #GERD -PPI, famotidine, carafate # COPD -Stable -Continue home albuterol DVT px -TEDS, SCD Resolved issues: #Orthostatic hypotension likely 2/2 to decreased intake DISPOSITION: Currently inpatient status. Plan is hopeful for home with 27/02 care by family when medically improved. VS, I&O, 24H, Fishbone Vital Signs/I&O Vital Signs Date Time Temp Pulse Resp B/P (MAP) Pulse Ox O2 Delivery O2 Flow Rate FiO2 08/21/20 18:14 16 08/21/20 14:00 98.4 72 103/51 (68) 95 Room Air I&O- Last 24 Hours up to 6 AM 08/21/20 06:00 Intake Total 1100 ml Output Total 1300 ml Balance -200 ml Laboratory Data 24H LABS Laboratory Tests 2 08/21/20 05:17: Nucleated Red Blood Cells % (auto) 0.0, Immature Platelet Fraction 5.7, Anion Gap 6L, Glomerular Filtration Rate > 60.0, Calcium Level 8.2L, Total Bilirubin 0.6, Aspartate Amino Transf (AST/SGOT) 26, Alanine Aminotransferase (ALT/SGPT) 37, Alkaline Phosphatase 106, Total Protein 5.7L, Albumin 2.3L, Albumin/Globulin Ratio 0.7 CBC/BMP Laboratory Tests 08/21/20 05:17 Microbiology Microbiology 08/17/20 Blood Culture - Preliminary, Resulted No Growth after 72 hours. All specime... 08/17/20 Blood Culture - Preliminary, Resulted No Growth after 72 hours. All specime... Current Medications Current Medications Medications (Trade) Dose Ordered Sig/Mallorie Route PRN Reason Start Time Stop Time Status Last Admin Dose Admin Acetaminophen (Tylenol Tab) 650 mg Q4H PRN PEG MILD PAIN OR FEVER 08/18/20 01:00 Acetaminophen/ Hydrocodone Bitart (Anexsia, [place] 7.5mg/325mg) 1 tab QID PRN PEG PAIN 08/19/20 14:45 08/20/20 11:07 DC 08/19/20 16:49 Acetaminophen/ Hydrocodone Bitart (Anexsia, [place] 7.5mg/325mg) 1 tab QIDP PRN PEG MODERATE PAIN (PS 5-7) 08/20/20 18:30 08/21/20 12:03 DC 08/21/20 10:31 Acetaminophen/ Hydrocodone Bitart (Lortab Liquid 7.5-325 Mg/15ml) 15 ml QIDP PRN PEG MODERATE PAIN (PS 5-7) 08/21/20 12:15 08/21/20 17:36 Acetaminophen/ Hydrocodone Bitart (Lortab Liquid 7.5-325 Mg/15ml) 20 ml Q4HP PRN PEG SEVERE PAIN (PS 8-10) 08/21/20 12:15 Acetaminophen/ Hydrocodone Bitart (Lortab Liquid 7.5-325 Mg/15ml) 20 ml Q4HP PRN PO SEVERE PAIN (PS 8-10) 08/21/20 12:15 08/21/20 12:06 DC Acetaminophen/ Hydrocodone Bitart ([place], Anexsia 5/325) 2 tab Q4HP PRN PO SEVERE PAIN (PS 8-10) 08/21/20 11:45 08/21/20 12:05 DC Acetaminophen/ Hydrocodone Bitart ([place], Anexsia 5/325) 2 tab Q6H PRN PEG MODERATE/SEVERE PAIN (PS 1-7) 08/18/20 13:00 08/19/20 08:48 DC 08/19/20 08:37 Acetaminophen/ Hydrocodone Bitart ([place], Anexsia 5/325) 2 tab Q6H PRN PO MODERATE/SEVERE PAIN (PS 1-7) 08/18/20 01:00 08/18/20 09:30 DC Acyclovir (Zovirax) 400 mg BID PEG 08/18/20 09:00 08/21/20 10:26 Albuterol Sulfate (Proventil, Ventolin Hfa) 2 puff QID PRN INH WHEEZING 08/18/20 01:00 Alprazolam (Xanax) 0.5 mg BID PEG 08/18/20 09:00 08/21/20 10:26 Cephalexin Monohydrate (Keflex) 500 mg BID PEG 08/18/20 09:00 08/21/20 10:26 Dextrose/Sodium Chloride 1,000 ml @ 100 mls/hr Q10H IV 08/18/20 17:45 08/21/20 20:04 Digoxin (Lanoxin) 0.125 mg Q2D PEG 08/18/20 09:00 08/20/20 15:52 Docusate Sodium (Colace Liquid) 100 mg BID GT 08/20/20 21:00 08/21/20 10:25 Doxazosin Mesylate (Cardura) 1 mg DAILY PEG 08/18/20 09:00 08/20/20 15:52 Enoxaparin Sodium (Lovenox) 40 mg DAILY SC 08/18/20 09:00 08/19/20 08:11 DC 08/18/20 10:51 Famotidine (Pepcid) 20 mg DAILY PRN PEG ACID REFLUX 08/18/20 01:00 Ferrous Sulfate (Ferrous Sulfate) 300 mg BID PEG 08/21/20 10:00 08/21/20 10:43 Guaifenesin (Robitussin) 25 ml BID PRN PEG CONGESTION 08/18/20 01:00 08/20/20 17:16 Home Med (Med Rec Complete!) ASDIRECTED XX 08/17/20 23:45 08/17/20 23:51 DC Hydroxyzine HCl (Atarax) 25 mg QID PRN PEG ITCHING 08/18/20 01:00 Magnesium Hydroxide (Milk Of Magnesia) 15 ml DAILY PRN PEG CONSTIPATION 08/18/20 01:00 08/20/20 18:44 Morphine Sulfate (Morphine Sulfate Inj) 2 mg Q3H PRN IV breakthrough pain 08/18/20 01:00 08/18/20 17:29 DC 08/18/20 09:23 Morphine Sulfate (Morphine Sulfate Inj) 2 mg Q3HP PRN IV SEVERE PAIN (PS 8-10) 08/20/20 11:15 08/20/20 18:23 DC 08/20/20 15:49 Morphine Sulfate (Morphine Sulfate Inj) 2 mg Q4H PRN IV MODERATE PAIN (PS 5-7) 08/19/20 09:00 08/19/20 14:33 DC Morphine Sulfate (Morphine Sulfate Inj) 4 mg Q30M PRN IV SEVERE PAIN (PS 8-10) 08/17/20 17:15 08/18/20 01:25 DC 08/17/20 17:42 Ondansetron HCl (ZOFRAN INJection) 4 mg Q6H PRN IV NAUSEA 08/18/20 01:00 08/21/20 04:28 Pantoprazole Sodium (Protonix) 40 mg Q24H IV 08/18/20 16:00 08/21/20 17:36 Patient Own Medication (Patient'S Own Med) 1 ea QID PEG 08/18/20 09:00 08/18/20 01:31 DC Potassium Chloride 10 meq/ IV Miscellaneous Supplies 100 ml @ 100 mls/hr Q1H IV 08/20/20 09:00 08/20/20 12:59 DC 08/20/20 18:45 Prednisone (Deltasone) 5 mg DAILY PEG 08/18/20 09:00 08/21/20 10:30 Sucralfate (Carafate Suspension) 1 gm ACHS PEG 08/18/20 07:30 08/21/20 17:36 Tamsulosin HCl (Flomax) 0.4 mg DAILY XX 08/18/20 09:00 08/18/20 03:29 DC Zinc Oxide (Boudreauxs Butt Paste) To PEG tube insert... TID TOP 08/18/20 16:00 08/21/20 17:36 Allergies Coded Allergies: No Known Allergies (Unverified , 06/03/20) Gay Renee MD Aug 21, 2020 20:48
[2020-08-21 22:00] VITALS: BP 106/56
[2020-08-22] MEDS: HYDROcodone/APAP LIQUID 7.5-325MG 15ML UDC (LORTAB ELIXIR) PEG PRN ×4 (00:38→22:27)
[2020-08-22 05:41] LABS: HEMOGLOBIN 8.9 g/dl (13.5-17.5); MEAN CORPUSCULAR HEMOGLOBIN 28.6 pg (27.0-33.0); MEAN CORPUSCULAR HGB CONC 29.7 g/dl (32.0-36.5); MEAN CORPUSCULAR VOLUME 96.5 fl (80.0-96.0); RED BLOOD COUNT 3.11 10^6/uL (4.30-6.10); WHITE BLOOD COUNT 4.1 10^3/uL (4.0-10.0)
[2020-08-22] MEDS: ONDANSETRON 4MG/2ML VIAL IV PRN (05:48)
[2020-08-22 05:50] LABS: PLATELET COUNT, AUTOMATED 81 10^3/uL (150-450)
[2020-08-22 06:00] VITALS: BP 101/53
[2020-08-22 06:17] LABS: ALBUMIN 2.3 GM/DL (3.2-5.2); ALT/SGPT 32 U/L (12-78); BILIRUBIN,TOTAL 0.4 MG/DL (0.2-1.0); BLOOD UREA NITROGEN 12 MG/DL (7-18); CARBON DIOXIDE LEVEL 28 MEQ/L (21-32); CHLORIDE LEVEL 107 MEQ/L (98-107); CREATININE FOR GFR 0.65 MG/DL (0.70-1.30); GLOMERULAR FILTRATION RATE > 60.0 (>42); GLUCOSE, FASTING 86 MG/DL (70-100); SODIUM LEVEL 140 MEQ/L (136-145); TOTAL PROTEIN 5.4 GM/DL (6.4-8.2)
[2020-08-22] MEDS: ALPRAZolam 0.5 MG TAB PEG SCH ×2 (08:31→21:13)
[2020-08-22] MEDS: SUCRALFATE SUSP 1GM/10ML UD PEG SCH ×4 (08:31→21:13)
[2020-08-22] MEDS: DIGOXIN 0.125 MG TAB PEG SCH (08:32)
[2020-08-22] MEDS: predniSONE 5 MG TAB PEG SCH (08:37)
[2020-08-22] MEDS: FERROUS SULFATE 300MG/5ML UDC LIQUID PEG SCH ×2 (08:37→21:13)
[2020-08-22] MEDS: ACYCLOVIR 200 MG CAPSULE PEG SCH ×2 (08:37→22:45)
[2020-08-22] MEDS: DOCUSATE SOD LIQ 100MG/10ML UDC GT SCH ×2 (08:37→21:13)
[2020-08-22] MEDS: CEPHALEXIN 500 MG CAP PEG SCH ×2 (08:37→21:13)
[2020-08-22] MEDS: BOUDREAUX'S BUTT PASTE TOP SCH ×3 (08:38→21:14)
[2020-08-22 08:45] VITALS: BP 100/56
[2020-08-22] MEDS: DOXAZOSIN MESYLATE 1 MG TAB PEG SCH (08:45)
[2020-08-22 14:00] VITALS: BP 115/63
--- NOTE | 2020-08-22 14:21 | IPN ---
PROGRESS NOTE DATE: 08/21/2020 Patient seems to be stable since his gastrostomy tube was placed in. He has had some minimal drainage around this but we started up on 25 mL/hour, does not really have that much drainage around it, and he has so much significant inflammatory changes on his skin, I do feel that we need to continue with dressing changes. His pain control is still significantly problematic for him with his compression fractures, etc. At this point, I would like to continue him on a continuous feed. Otherwise, he does not have a distended abdomen, it is really nontender, no evidence of cellulitis. He does complain of pain around the site but I feel that that is probably some muscle spasm in this area and probably associated with the significant skin inflammation that he has present. We will see how he is doing tomorrow and if he has some drainage that seems to increase, options include increasing the bulb amount of fluid and/or possibly discontinuing the tube for a short period of time during the day and then replacing it once this has closed up to some extent.
--- NOTE | 2020-08-22 14:21 | IPN ---
PROGRESS NOTE DATE: 08/22/2020 Patient had a significant amount of drainage last night when his tube feeds were up to 50 mL/hour with some free water going at 10 mL/hour, thus 60 mL/hour. He does not have any nausea, no vomiting. Still complains of pain at the site and has had some drainage last night. They decreased the flow rate down to 40 mL, it seems to have made a significant improvement of the amount of drainage. On his physical exam, his gastrostomy (G) tube site is still inflamed but there is a little bit of leakage of fluid around the area and thus I will increase the balloon by 2 mL and we will see if that makes a difference with the amount of drainage. It is a little bit tighter now that I have put that on and we will see if that makes a difference with the drainage. Otherwise, we will continue at his current rate, we will see how he does overnight, if he has problems with this we will discontinue the tube and see if this closes down a little bit over the day and then replace it later on in the day.
[2020-08-22] MEDS: PANTOPRAZOLE 40MG VIAL (C9113 PER 1) IV SCH (15:40)
--- NOTE | 2020-08-22 19:31 | IPNPDOC ---
Date Seen The patient was seen on 08/22/20. Progress Note SUBJECTIVE: Residuals overnight with FT, decreased rate due to some leaking. Balloon increased today by surgery, they are watching closely. Pain better controlled. He denies chest pain, shortness of breath. OBJECTIVE: PHYSICAL EXAMINATION: VITAL SIGNS: See below GENERAL: Cachectic, resting in bed . AAOx 3 HEENT: NC, AT, EOMI, no scleral icterus, moist mucous membranes NECK: No cervical or supraclavicular lymphadenopathy. No JVD. CARDIOVASCULAR: RRR, normal S1 and S2. No murmurs, gallops, rubs. LUNGS: CTAB, no W/R/R ABDOMEN: Soft, non-tender, non-distended, bowel sounds present. No he patosplenomegaly. No masses or eccymosis. No CVA tenderness. feeding tube in place in left abd EXTREMITIES: No swelling or edema SKIN: Multiple raised, stuck on brown-yellow plaques along anterior chest. surrounding area of erythema around feeding tube slightly redder today but overall healing well NEUROLOGICAL: No focal or sensory deficits. CN II-XII grossly intact. LABORATORY DATA: See below. MICROBIOLOGY: BCx x 2 sets: NG IMAGIN08/17/20 CT angiogram chest: 1. No pulmonary embolism. 2. Moderate loculated right pleural effusion. No pneumothorax. 3. Acute compression fractures of T3, T4, T5, and T6 as detailed above, which are new compared to the prior CT chest on 07/02/2019. 4. Some of the ill-defined opacities in the left lower lobe have resolved since the prior CT chest on 07/02/2019, and there is a persistent irregular opacity measuring up to 1 cm in the left lower lobe and stable pulmonary nodules in the right lung compared to the prior CT chest on 07/02/2019. Fleischner Society follow up recommendations for incidental nodules are not indicated. Follow up per the patient's medical condition. 08/17/2020 CT abd/pelvis w/ IV contrast only: 1. Cholelithiasis without CT evidence for cholecystitis. 2. Colonic diverticulosis without evidence for diverticulitis. 3. Enlarged prostate. 4. Patent aorto bi common iliac stent in place in an infrarenal abdominal aortic aneurysm that measures 3 cm x 3 cm in diameter, which is stable compared to the prior CT abdomen and pelvis on 06/03/2020. No rupture of the aneurysm or endoleak. 5. 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 6. Small amount of free fluid in the pelvis, which is similar in appearance compared to the prior CT abdomen and pelvis on 06/03/2020. ASSESSMENT: Patient is a 79 year old male with a history of soft palate neck cancer and not fully treated lung cancer who presents with non-traumatic back pain that was found to be related to his thoracic compression fractures and admitted for pain control and physical therapy due to deconditioning. PLAN: #Leaking G-tube -Increased residuals overnight with rate needing to be decreased, some leaking, volume in balloon increased -Advancing continuous Jevity tube feeds and free water as tolerated -Erythema and redness around feeding tube present but not as bad as was before -F/u surgery, dietary recommendations # T3-T6 compression fractures -Ortho has seen, recommend WBAT -Ortho recommends f/u after discharge with spine surgeon, no emergent need -c/W oxycodone/acetaminophen 10-325 mg for severe pain in addition to moderate pain control with 7.5-325 mg dosing. -PT: Hopes of d/c home with family providing 27/02 -C/w PT/OT while here #ELLIOT, chronic -H/H 8.05/06 -F/u occult blood -Started on iron supplementation -CBC daily #Thrombocytopenia, chronic -Since 2019 -PLTS slightly improved -Stopped lovenox -Monitor CBC daily # Deconditioning, acute on chronic 2/2 to compression fractures above -Chronic illness -PT/OT -Nutritional optimization # Moderate R-sided pleural effusion - Per the CT report this represents a stable chronic finding -97% on RA # LLL stage IIIB non small cell lung cancer - Previously on chemo but no treatment since 2019 - Patient is no longer interested in treatment and stop seeking treatment about a year ago. - Guaifenesin for handling secretions # Hypertensive heart disease. # Bradycardia with a pacemaker. # BPH -Previously on flomax # Anxiety -C/w xanax, hydroxyzine #GERD -PPI, famotidine, carafate # COPD -Stable -Continue home albuterol DVT px -TEDS, SCD Resolved issues: #Orthostatic hypotension likely 2/2 to decreased intake DISPOSITION: Currently inpatient status. Plan is hopeful for home with 27/02 care by family when medically improved. VS, I&O, 24H, Pedrobone Vital Signs/I&O Vital Signs Date Time Temp Pulse Resp B/P (MAP) Pulse Ox O2 Delivery O2 Flow Rate FiO2 08/22/20 16:10 17 Room Air 08/22/20 14:00 97.9 70 115/63 (80) 97 I&O- Last 24 Hours up to 6 AM 08/22/20 06:00 Output Total 1300 ml Balance -1300 ml Laboratory Data 24H LABS Laboratory Tests 2 08/22/20 05:26: Nucleated Red Blood Cells % (auto) 0.0, Immature Platelet Fraction 5.4, Anion Gap 5L, Glomerular Filtration Rate > 60.0, Calcium Level 8.0L, Total Bilirubin 0.4, Aspartate Amino Transf (AST/SGOT) 21, Alanine Aminotransferase (ALT/SGPT) 32, Alkaline Phosphatase 104, Total Protein 5.4L, Albumin 2.3L, Albumin/Globulin Ratio 0.7 CBC/BMP Laboratory Tests 08/22/20 05:26 Microbiology Microbiology 08/17/20 Blood Culture - Final, Complete NO GROWTH AFTER 5 DAYS 08/17/20 Blood Culture - Final, Complete NO GROWTH AFTER 5 DAYS Current Medications Current Medications Medications (Trade) Dose Ordered Sig/Mallorie Route PRN Reason Start Time Stop Time Status Last Admin Dose Admin Acetaminophen (Tylenol Tab) 650 mg Q4H PRN PEG MILD PAIN OR FEVER 08/18/20 01:00 Acetaminophen/ Hydrocodone Bitart (Anexsia, Bim 7.5mg/325mg) 1 tab QID PRN PEG PAIN 08/19/20 14:45 08/20/20 11:07 DC 08/19/20 16:49 Acetaminophen/ Hydrocodone Bitart (Anexsia, Bim 7.5mg/325mg) 1 tab QIDP PRN PEG MODERATE PAIN (PS 5-7) 08/20/20 18:30 08/21/20 12:03 DC 08/21/20 10:31 Acetaminophen/ Hydrocodone Bitart (Lortab Liquid 7.5-325 Mg/15ml) 15 ml QIDP PRN PEG MODERATE PAIN (PS 5-7) 08/21/20 12:15 08/22/20 15:40 Acetaminophen/ Hydrocodone Bitart (Lortab Liquid 7.5-325 Mg/15ml) 20 ml Q4HP PRN PEG SEVERE PAIN (PS 8-10) 08/21/20 12:15 Acetaminophen/ Hydrocodone Bitart (Lortab Liquid 7.5-325 Mg/15ml) 20 ml Q4HP PRN PO SEVERE PAIN (PS 8-10) 08/21/20 12:15 08/21/20 12:06 DC Acetaminophen/ Hydrocodone Bitart (Bim, Anexsia 5/325) 2 tab Q4HP PRN PO SEVERE PAIN (PS 8-10) 08/21/20 11:45 08/21/20 12:05 DC Acetaminophen/ Hydrocodone Bitart (Bim, Anexsia 5/325) 2 tab Q6H PRN PEG MODERATE/SEVERE PAIN (PS 1-7) 08/18/20 13:00 08/19/20 08:48 DC 08/19/20 08:37 Acetaminophen/ Hydrocodone Bitart (Bim, Anexsia 5/325) 2 tab Q6H PRN PO MODERATE/SEVERE PAIN (PS 1-7) 08/18/20 01:00 08/18/20 09:30 DC Acyclovir (Zovirax) 400 mg BID PEG 08/18/20 09:00 08/22/20 08:37 Albuterol Sulfate (Proventil, Ventolin Hfa) 2 puff QID PRN INH WHEEZING 08/18/20 01:00 Alprazolam (Xanax) 0.5 mg BID PEG 08/18/20 09:00 08/22/20 08:31 Cephalexin Monohydrate (Keflex) 500 mg BID PEG 08/18/20 09:00 08/22/20 08:37 Dextrose/Sodium Chloride 1,000 ml @ 100 mls/hr Q10H IV 08/18/20 17:45 08/21/20 20:45 DC 08/21/20 20:04 Digoxin (Lanoxin) 0.125 mg Q2D PEG 08/18/20 09:00 08/22/20 08:32 Docusate Sodium (Colace Liquid) 100 mg BID GT 08/20/20 21:00 08/22/20 08:37 Doxazosin Mesylate (Cardura) 1 mg DAILY PEG 08/18/20 09:00 08/22/20 09:43 DC 08/20/20 15:52 Enoxaparin Sodium (Lovenox) 40 mg DAILY SC 08/18/20 09:00 08/19/20 08:11 DC 08/18/20 10:51 Famotidine (Pepcid) 20 mg DAILY PRN PEG ACID REFLUX 08/18/20 01:00 Ferrous Sulfate (Ferrous Sulfate) 300 mg BID PEG 08/21/20 10:00 08/22/20 08:37 Guaifenesin (Robitussin) 25 ml BID PRN PEG CONGESTION 08/18/20 01:00 08/20/20 17:16 Home Med (Med Rec Complete!) ASDIRECTED XX 08/17/20 23:45 08/17/20 23:51 DC Hydroxyzine HCl (Atarax) 25 mg QID PRN PEG ITCHING 08/18/20 01:00 Magnesium Hydroxide (Milk Of Magnesia) 15 ml DAILY PRN PEG CONSTIPATION 08/18/20 01:00 08/20/20 18:44 Morphine Sulfate (Morphine Sulfate Inj) 2 mg Q3H PRN IV breakthrough pain 08/18/20 01:00 08/18/20 17:29 DC 08/18/20 09:23 Morphine Sulfate (Morphine Sulfate Inj) 2 mg Q3HP PRN IV SEVERE PAIN (PS 8-10) 08/20/20 11:15 08/20/20 18:23 DC 08/20/20 15:49 Morphine Sulfate (Morphine Sulfate Inj) 2 mg Q4H PRN IV MODERATE PAIN (PS 5-7) 08/19/20 09:00 08/19/20 14:33 DC Morphine Sulfate (Morphine Sulfate Inj) 4 mg Q30M PRN IV SEVERE PAIN (PS 8-10) 08/17/20 17:15 08/18/20 01:25 DC 08/17/20 17:42 Ondansetron HCl (ZOFRAN INJection) 4 mg Q6H PRN IV NAUSEA 08/18/20 01:00 08/22/20 05:48 Pantoprazole Sodium (Protonix) 40 mg Q24H IV 08/18/20 16:00 08/22/20 15:40 Patient Own Medication (Patient'S Own Med) 1 ea QID PEG 08/18/20 09:00 08/18/20 01:31 DC Potassium Chloride 10 meq/ IV Miscellaneous Supplies 100 ml @ 100 mls/hr Q1H IV 08/20/20 09:00 08/20/20 12:59 DC 08/20/20 18:45 Prednisone (Deltasone) 5 mg DAILY PEG 08/18/20 09:00 08/22/20 08:37 Sucralfate (Carafate Suspension) 1 gm ACHS PEG 08/18/20 07:30 08/22/20 18:12 Tamsulosin HCl (Flomax) 0.4 mg DAILY XX 08/18/20 09:00 08/18/20 03:29 DC Zinc Oxide (Boudreauxs Butt Paste) To PEG tube insert... TID TOP 08/18/20 16:00 08/22/20 15:45 Allergies Coded Allergies: No Known Allergies (Unverified , 06/03/20) Gay Renee MD Aug 22, 2020 19:31
[2020-08-22 22:00] VITALS: BP 101/58
[2020-08-22] MEDS: MOM 30ML SUSPENSION UDC PEG PRN (22:28)
[2020-08-23] MEDS: ONDANSETRON 4MG/2ML VIAL IV PRN ×2 (05:33→18:15)
[2020-08-23 05:42] LABS: HEMATOCRIT 31.1 % (42.0-52.0); HEMOGLOBIN 9.3 g/dl (13.5-17.5); MEAN CORPUSCULAR HEMOGLOBIN 28.4 pg (27.0-33.0); MEAN CORPUSCULAR HGB CONC 29.9 g/dl (32.0-36.5); MEAN CORPUSCULAR VOLUME 95.1 fl (80.0-96.0); PLATELET COUNT, AUTOMATED 94 10^3/uL (150-450); RED BLOOD COUNT 3.27 10^6/uL (4.30-6.10); WHITE BLOOD COUNT 4.5 10^3/uL (4.0-10.0)
[2020-08-23 06:00] VITALS: BP 120/64
[2020-08-23 06:12] LABS: ALBUMIN 2.4 GM/DL (3.2-5.2); ALT/SGPT 26 U/L (12-78); BILIRUBIN,TOTAL 0.6 MG/DL (0.2-1.0); BLOOD UREA NITROGEN 13 MG/DL (7-18); CALCIUM LEVEL 8.4 MG/DL (8.8-10.2); CARBON DIOXIDE LEVEL 31 MEQ/L (21-32); CHLORIDE LEVEL 104 MEQ/L (98-107); CREATININE FOR GFR 0.69 MG/DL (0.70-1.30); GLOMERULAR FILTRATION RATE > 60.0 (>42); GLUCOSE, FASTING 97 MG/DL (70-100); POTASSIUM SERUM 3.7 MEQ/L (3.5-5.1); SODIUM LEVEL 139 MEQ/L (136-145); TOTAL PROTEIN 5.6 GM/DL (6.4-8.2)
[2020-08-23] MEDS ORDERED: NS 1,000 ML IV SCH (09:00)
[2020-08-23] MEDS: SUCRALFATE SUSP 1GM/10ML UD PEG SCH ×4 (09:14→21:14)
[2020-08-23] MEDS: HYDROcodone/APAP LIQUID 7.5-325MG 15ML UDC (LORTAB ELIXIR) PEG PRN ×2 (09:14→18:14)
[2020-08-23] MEDS ORDERED: ONDANSETRON 4MG/2ML VIAL IV ONE (10:30)
[2020-08-23] MEDS: BOUDREAUX'S BUTT PASTE TOP SCH ×3 (11:04→21:15)
[2020-08-23] MEDS: DOCUSATE SOD LIQ 100MG/10ML UDC GT SCH ×2 (12:36→21:14)
[2020-08-23] MEDS: predniSONE 5 MG TAB PEG SCH (12:36)
[2020-08-23] MEDS: FERROUS SULFATE 300MG/5ML UDC LIQUID PEG SCH ×2 (12:36→21:14)
[2020-08-23] MEDS: ACYCLOVIR 200 MG CAPSULE PEG SCH ×2 (12:36→21:15)
[2020-08-23] MEDS: ALPRAZolam 0.5 MG TAB PEG SCH ×2 (12:36→21:15)
[2020-08-23] MEDS: CEPHALEXIN 500 MG CAP PEG SCH ×2 (12:36→21:15)
[2020-08-23] MEDS: MOM 30ML SUSPENSION UDC PEG PRN (12:40)
[2020-08-23 14:05] VITALS: BP 101/51
--- NOTE | 2020-08-23 15:23 | IPNPDOC ---
Date Seen The patient was seen on 08/23/20. Progress Note SUBJECTIVE: Residuals overnight with FT again, taken out by surgery. GJ tube placement to occur likely 08/24/20 by IR, discussed with Dr. Hancock. He denies chest pain, shortness of breath but complains of some abdominal and back pain similar to days prior. Also complains of some "burning" of his skin on right flank, under arm- no rash seen. OBJECTIVE: PHYSICAL EXAMINATION: VITAL SIGNS: See below GENERAL: Cachectic, resting in bed . AAOx 3 HEENT: NC, AT, EOMI, no scleral icterus, moist mucous membranes NECK: No cervical or supraclavicular lymphadenopathy. No JVD. CARDIOVASCULAR: RRR, normal S1 and S2. No murmurs, gallops, rubs. LUNGS: CTAB, no W/R/R ABDOMEN: Soft, non-tender, non-distended, bowel sounds present. No hepatosplenomegaly. No masses or eccymosis. No CVA tenderness. feeding tube in place in left abd EXTREMITIES: No swelling or edema SKIN: Multiple raised, stuck on brown-yellow plaques along anterior chest. surrounding area of erythema around feeding tube slightly redder today but overall healing well NEUROLOGICAL: No focal or sensory deficits. CN II-XII grossly intact. LABORATORY DATA: See below. MICROBIOLOGY: BCx x 2 sets: NG IMAGIN08/17/20 CT angiogram chest: 1. No pulmonary embolism. 2. Moderate loculated right pleural effusion. No pneumothorax. 3. Acute compression fractures of T3, T4, T5, and T6 as detailed above, which are new compared to the prior CT chest on 07/02/2019. 4. Some of the ill-defined opacities in the left lower lobe have resolved since the prior CT chest on 07/02/2019, and there is a persistent irregular opacity measuring up to 1 cm in the left lower lobe and stable pulmonary nodules in the right lung compared to the prior CT chest on 07/02/2019. Fleischner Society follow up recommendations for incidental nodules are not indicated. Follow up per the patient's medical condition. 08/17/2020 CT abd/pelvis w/ IV contrast only: 1. Cholelithiasis without CT evidence for cholecystitis. 2. Colonic diverticulosis without evidence for diverticulitis. 3. Enlarged prostate. 4. Patent aorto bi common iliac stent in place in an infrarenal abdominal aortic aneurysm that measures 3 cm x 3 cm in diameter, which is stable compared to the prior CT abdomen and pelvis on 06/03/2020. No rupture of the aneurysm or endoleak. 5. 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 6. Small amount of free fluid in the pelvis, which is similar in appearance compared to the prior CT abdomen and pelvis on 06/03/2020. ASSESSMENT: Patient is a 79 year old male with a history of soft palate neck cancer and not fully treated lung cancer who presents with non-traumatic back pain that was found to be related to his thoracic compression fractures and admitted for pain control and physical therapy due to deconditioning. PLAN: #Leaking G-tube -Replaced on 08/21 ;however, continues to leak despite modifications, taken out of stomach this AM -Discussed with Dr. Bland and , to have GJ tube placed likely 08/24/20 -Remains on IVFs as well -NPO after midnight -Erythema and redness around feeding tube present but not as bad as was before -F/u surgery, dietary recommendations #Burning of right flank, under right arm -Hx of shingles, states it has felt like this in past -On exam, NO areas of redness or concern currently. -Would encourage nursing and providers to keep eye out for developing rash in this area # T3-T6 compression fractures -Ortho has seen, recommend WBAT -Ortho recommends f/u after discharge with spine surgeon, no emergent need -c/W oxycodone/acetaminophen 10-325 mg for severe pain in addition to moderate pain control with 7.5-325 mg dosing. -Will likely need conversion to IV morphine after midnight tonight awaiting procedure tomorrow. -PT: Hopes of d/c home with family providing 27/02 -C/w PT/OT while here #ELLIOT, chronic -H/H 9.11/04 -F/u occult blood -C/w iron supplementation -CBC daily #Thrombocytopenia, chronic -Since 2018 -PLTS 94 -Stopped lovenox -Monitor CBC daily # Deconditioning, acute on chronic 2/2 to compression fractures above -Chronic illness -PT/OT -Nutritional optimization # Moderate R-sided pleural effusion - Per the CT report this represents a stable chronic finding -97% on RA # LLL stage IIIB non small cell lung cancer - Previously on chemo but no treatment since 2018 - Patient is no longer interested in treatment and stop seeking treatment about a year ago. - Guaifenesin for handling secretions # Hypertensive heart disease. # Bradycardia with a pacemaker. # BPH -Previously on flomax # Anxiety -C/w xanax, hydroxyzine #GERD -PPI, famotidine, carafate # COPD -Stable -Continue home albuterol DVT px -TEDS, SCD Resolved issues: #Orthostatic hypotension likely 2/2 to decreased intake DISPOSITION: Currently inpatient status. To go for GJ tube placement by IR likely 08/24/20. Plan is hopeful for home with 27/02 care by family when medica lly improved. VS, I&O, 24H, Fishbone Vital Signs/I&O Vital Signs Date Time Temp Pulse Resp B/P (MAP) Pulse Ox O2 Delivery O2 Flow Rate FiO2 08/23/20 14:05 98.4 66 16 101/51 (68) 96 Room Air I&O- Last 24 Hours up to 6 AM 08/23/20 06:00 Intake Total 960 ml Output Total 1250 ml Balance -290 ml Laboratory Data 24H LABS Laboratory Tests 2 08/23/20 05:29: Nucleated Red Blood Cells % (auto) 0.0, Immature Platelet Fraction 4.5, Anion Gap 4L, Glomerular Filtration Rate > 60.0, Calcium Level 8.4L, Total Bilirubin 0.6, Aspartate Amino Transf (AST/SGOT) 16, Alanine Aminotransferase (ALT/SGPT) 26, Alkaline Phosphatase 117, Total Protein 5.6L, Albumin 2.4L, Albumin/Globulin Ratio 0.8 CBC/BMP Laboratory Tests 08/23/20 05:29 Microbiology Microbiology 08/17/20 Blood Culture - Final, Complete NO GROWTH AFTER 5 DAYS 08/17/20 Blood Culture - Final, Complete NO GROWTH AFTER 5 DAYS Current Medications Current Medications Medications (Trade) Dose Ordered Sig/Mallorie Route PRN Reason Start Time Stop Time Status Last Admin Dose Admin Acetaminophen (Tylenol Tab) 650 mg Q4H PRN PEG MILD PAIN OR FEVER 08/18/20 01:00 Acetaminophen/ Hydrocodone Bitart (Anexsia, [place]ammoth 7.5mg/325mg) 1 tab QID PRN PEG PAIN 08/19/20 14:45 08/20/20 11:07 DC 08/19/20 16:49 Acetaminophen/ Hydrocodone Bitart (Anexsia, Mammoth 7.5mg/325mg) 1 tab QIDP PRN PEG MODERATE PAIN (PS 5-7) 08/20/20 18:30 08/21/20 12:03 DC 08/21/20 10:31 Acetaminophen/ Hydrocodone Bitart (Lortab Liquid 7.5-325 Mg/15ml) 15 ml QIDP PRN PEG MODERATE PAIN (PS 5-7) 08/21/20 12:15 08/23/20 09:14 Acetaminophen/ Hydrocodone Bitart (Lortab Liquid 7.5-325 Mg/15ml) 20 ml Q4HP PRN PEG SEVERE PAIN (PS 8-10) 08/21/20 12:15 08/23/20 03:11 Acetaminophen/ Hydrocodone Bitart (Lortab Liquid 7.5-325 Mg/15ml) 20 ml Q4HP PRN PO SEVERE PAIN (PS 8-10) 08/21/20 12:15 08/21/20 12:06 DC Acetaminophen/ Hydrocodone Bitart (Mammoth, Anexsia 5/325) 2 tab Q4HP PRN PO SEVERE PAIN (PS 8-10) 08/21/20 11:45 08/21/20 12:05 DC Acetaminophen/ Hydrocodone Bitart (Mammoth, Anexsia 5/325) 2 tab Q6H PRN PEG MODERATE/SEVERE PAIN (PS 1-7) 08/18/20 13:00 08/19/20 08:48 DC 08/19/20 08:37 Acetaminophen/ Hydrocodone Bitart (Mammoth, Anexsia 5/325) 2 tab Q6H PRN PO MODERATE/SEVERE PAIN (PS 1-7) 08/18/20 01:00 08/18/20 09:30 DC Acyclovir (Zovirax) 400 mg BID PEG 08/18/20 09:00 08/23/20 12:36 Albuterol Sulfate (Proventil, Ventolin Hfa) 2 puff QID PRN INH WHEEZING 08/18/20 01:00 Alprazolam (Xanax) 0.5 mg BID PEG 08/18/20 09:00 08/23/20 12:36 Amino Ac/Electrol/ Dextrose/Calcium 1,000 ml @ 75 mls/hr [id number] IV 08/23/20 18:00 Cephalexin Monohydrate (Keflex) 500 mg BID PEG 08/18/20 09:00 08/23/20 12:36 Dextrose/Sodium Chloride 1,000 ml @ 100 mls/hr Q10H IV 08/18/20 17:45 08/21/20 20:45 DC 08/21/20 20:04 Digoxin (Lanoxin) 0.125 mg Q2D PEG 08/18/20 09:00 08/22/20 08:32 Docusate Sodium (Colace Liquid) 100 mg BID GT 08/20/20 21:00 08/23/20 12:36 Doxazosin Mesylate (Cardura) 1 mg DAILY PEG 08/18/20 09:00 08/22/20 09:43 DC 08/20/20 15:52 Enoxaparin Sodium (Lovenox) 40 mg DAILY SC 08/18/20 09:00 08/19/20 08:11 DC 08/18/20 10:51 Famotidine (Pepcid) 20 mg DAILY PRN PEG ACID REFLUX 08/18/20 01:00 08/23/20 03:12 Fat Emulsion Intravenous 500 ml @ 20 mls/hr ONCE@1800 IV 08/23/20 18:00 08/24/20 17:59 Ferrous Sulfate (Ferrous Sulfate) 300 mg BID PEG 08/21/20 10:00 08/23/20 12:36 Guaifenesin (Robitussin) 25 ml BID PRN PEG CONGESTION 08/18/20 01:00 08/20/20 17:16 Home Med (Med Rec Complete!) ASDIRECTED XX 08/17/20 23:45 08/17/20 23:51 DC Hydroxyzine HCl (Atarax) 25 mg QID PRN PEG ITCHING 08/18/20 01:00 Magnesium Hydroxide (Milk Of Magnesia) 15 ml DAILY PRN PEG CONSTIPATION 08/18/20 01:00 08/23/20 12:40 Morphine Sulfate (Morphine Sulfate Inj) 2 mg Q3H PRN IV breakthrough pain 08/18/20 01:00 08/18/20 17:29 DC 08/18/20 09:23 Morphine Sulfate (Morphine Sulfate Inj) 2 mg Q3HP PRN IV SEVERE PAIN (PS 8-10) 08/20/20 11:15 08/20/20 18:23 DC 08/20/20 15:49 Morphine Sulfate (Morphine Sulfate Inj) 2 mg Q4H PRN IV MODERATE PAIN (PS 5-7) 08/19/20 09:00 08/19/20 14:33 DC Morphine Sulfate (Morphine Sulfate Inj) 4 mg Q30M PRN IV SEVERE PAIN (PS 8-10) 08/17/20 17:15 08/18/20 01:25 DC 08/17/20 17:42 Ondansetron HCl (ZOFRAN INJection) 4 mg Q6H PRN IV NAUSEA 08/18/20 01:00 08/23/20 10:04 DC 08/23/20 05:33 Ondansetron HCl (ZOFRAN INJection) 8 mg Q6H PRN IV NAUSEA 08/23/20 13:00 Pantoprazole Sodium (Protonix) 40 mg Q24H IV 08/18/20 16:00 08/22/20 15:40 Patient Own Medication (Patient'S Own Med) 1 ea QID PEG 08/18/20 09:00 08/18/20 01:31 DC Potassium Chloride 10 meq/ IV Miscellaneous Supplies 100 ml @ 100 mls/hr Q1H IV 08/20/20 09:00 08/20/20 12:59 DC 08/20/20 18:45 Prednisone (Deltasone) 5 mg DAILY PEG 08/18/20 09:00 08/23/20 12:36 Sodium Chloride 1,000 ml @ 85 mls/hr [id number] IV 08/23/20 09:00 08/23/20 09:23 Sucralfate (Carafate Suspension) 1 gm ACHS PEG 08/18/20 07:30 08/23/20 12:36 Tamsulosin HCl (Flomax) 0.4 mg DAILY XX 08/18/20 09:00 08/18/20 03:29 DC Zinc Oxide (Boudreauxs Butt Paste) To PEG tube insert... TID TOP 08/18/20 16:00 08/23/20 11:04 Allergies Coded Allergies: No Known Allergies (Unverified , 06/03/20) Gay Renee MD Aug 23, 2020 15:22
[2020-08-23] MEDS: PANTOPRAZOLE 40MG VIAL (C9113 PER 1) IV SCH (16:27)
[2020-08-23] MEDS ORDERED: FAT EMULSION IV 20% 500 ML IV SCH (18:00)
[2020-08-23] MEDS: AMINO AC/ELECTROLYTE/DEX/CALC 1,000 ML IV SCH (18:14)
--- NOTE | 2020-08-23 20:54 | IPN ---
PROGRESS NOTE DATE: 08/23/2020 SUBJECTIVE: The patient did not tolerate decreased tube feeds, and it sounds as though he is probably having difficulty emptying his stomach, and that may be our biggest component of why he is having drainage at the T-tube site, and that is why it has been poorly healing. Otherwise his wound is slowly looking a little bit better each day with the aggressive wound care that has been performed. IMPRESSION AND PLAN: The gastrostomy tube was removed and will be replaced. Once it is replaced, I would anticipate that we could have less drainage from the site, but I would recommend that Interventional Radiology place a gastrojejunostomy tube tomorrow, and then the gastrostomy tube can be put gravity drainage and I anticipate this will heal up relatively quickly after that time. Otherwise continue supportive care. I would keep him off the tube feeds for right now, given he is not doing well with the current low rate that we have started.
[2020-08-23 22:00] VITALS: BP 102/55
[2020-08-23] MEDS: MORPHINE 4 MG/ML 1ML VIAL/SYRINGE (J2270) IV PRN (23:01)
[2020-08-24] MEDS: ONDANSETRON 4MG/2ML VIAL IV PRN ×2 (03:46→09:32)
[2020-08-24] MEDS: MORPHINE 4 MG/ML 1ML VIAL/SYRINGE (J2270) IV PRN ×4 (03:47→20:56)
[2020-08-24 05:58] LABS: HEMOGLOBIN 9.4 g/dl (13.5-17.5); MEAN CORPUSCULAR HEMOGLOBIN 29.2 pg (27.0-33.0); MEAN CORPUSCULAR HGB CONC 30.3 g/dl (32.0-36.5); MEAN CORPUSCULAR VOLUME 96.3 fl (80.0-96.0); RED BLOOD COUNT 3.22 10^6/uL (4.30-6.10); WHITE BLOOD COUNT 4.8 10^3/uL (4.0-10.0)
[2020-08-24 06:00] VITALS: BP 119/89
[2020-08-24 06:00] LABS: PLATELET COUNT, AUTOMATED 93 10^3/uL (150-450)
[2020-08-24 06:19] LABS: ALBUMIN 2.3 GM/DL (3.2-5.2); ALT/SGPT 23 U/L (12-78); BILIRUBIN,TOTAL 0.4 MG/DL (0.2-1.0); BLOOD UREA NITROGEN 15 MG/DL (7-18); CALCIUM LEVEL 8.5 MG/DL (8.8-10.2); CARBON DIOXIDE LEVEL 31 MEQ/L (21-32); CHLORIDE LEVEL 103 MEQ/L (98-107); CREATININE FOR GFR 0.67 MG/DL (0.70-1.30); GLOMERULAR FILTRATION RATE > 60.0 (>42); GLUCOSE, FASTING 98 MG/DL (70-100); POTASSIUM SERUM 3.7 MEQ/L (3.5-5.1); SODIUM LEVEL 138 MEQ/L (136-145); TOTAL PROTEIN 5.6 GM/DL (6.4-8.2)
[2020-08-24] MEDS: AMINO AC/ELECTROLYTE/DEX/CALC 1,000 ML IV SCH ×2 (07:21→21:08)
[2020-08-24] MEDS: SUCRALFATE SUSP 1GM/10ML UD PEG SCH ×4 (07:30→20:36)
--- NOTE | 2020-08-24 08:52 | IPN ---
PROGRESS NOTE DATE: 08/24/2020 The patient had decreased drainage from his G-tube overnight. We did take out his G-tube for a little while yesterday and replaced it and it sealed much better after that. In general, he had a significant amount of gastric residuals and he probably had some element of gastroparesis that is contributing to his drainage around his G-tube site and that may actually be the major problem that we are dealing with, not so much the G-tube itself. In any case his gastrostomy tube site area is starting to clear up with the local dressing changes and wound care attention. At this point we have ordered a gastrojejunostomy to be placed by interventional radiology. Hopefully they can place this and at that point after the tube has been inserted he can start getting tube feeds via the feeding tube portion of it and we will keep the G-tube on gravity except for meds, etc. I have reordered his PPN for tonight given that he still may not be up to full amount of tube feeds overnight.
[2020-08-24] MEDS: predniSONE 5 MG TAB PEG SCH (10:22)
[2020-08-24] MEDS: FERROUS SULFATE 300MG/5ML UDC LIQUID PEG SCH ×2 (10:22→20:36)
[2020-08-24] MEDS: DOCUSATE SOD LIQ 100MG/10ML UDC GT SCH ×2 (10:22→20:36)
[2020-08-24] MEDS: CEPHALEXIN 500 MG CAP PEG SCH (10:23)
[2020-08-24] MEDS: DIGOXIN 0.125 MG TAB PEG SCH (10:23)
[2020-08-24] MEDS: BOUDREAUX'S BUTT PASTE TOP SCH ×3 (10:23→20:37)
[2020-08-24] MEDS: ALPRAZolam 0.5 MG TAB PEG SCH ×2 (10:23→20:36)
[2020-08-24] MEDS: ACYCLOVIR 200 MG CAPSULE PEG SCH ×2 (10:23→20:36)
[2020-08-24 14:00] VITALS: BP 100/54
[2020-08-24] MEDS ORDERED: MIDAZOLAM INJ 2MG/2ML VIAL (J2250 PER 1MG) As Ordered ONE (14:45)
[2020-08-24] MEDS ORDERED: diphenhydrAMINE 50MG/ML VIAL (J1200) As Ordered ONE (14:45)
[2020-08-24] MEDS ORDERED: fentaNYL 100 MCG/2 ML INJECTION (J3010) As Ordered ONE (14:45)
[2020-08-24] MEDS ORDERED: ceFAZolin 1GM VIAL (J0690 PER 500MG) As Ordered ONE (14:46)
[2020-08-24] MEDS ORDERED: ceFAZolin 2 GM/D5W 50 ML IV BAG (J0690 PER 500MG) As Ordered ONE (14:48)
[2020-08-24] MEDS ORDERED: LIDOCAINE 1% MDV 20ML VIAL As Ordered ONE (14:52)
[2020-08-24] MEDS ORDERED: ISOVUE-300 61% 50ML VIAL As Ordered ONE (14:52)
[2020-08-24 16:15] VITALS: BP 136/65
[2020-08-24] MEDS: PANTOPRAZOLE 40MG VIAL (C9113 PER 1) IV SCH (16:50)
--- NOTE | 2020-08-24 17:58 | IPNPDOC ---
Date Seen The patient was seen on 08/24/20. Progress Note SUBJECTIVE: Failed GJ conversion today by IR. Discussed with surgery, they will decide how to place possibly endoscopically. Prior G tube was replaced, only meds to be given through it. Placed on PPN. He denies chest pain, shortness of breath. OBJECTIVE: PHYSICAL EXAMINATION: VITAL SIGNS: See below GENERAL: Cachectic, resting in bed . AAOx 3 HEENT: NC, AT, EOMI, no scleral icterus, moist mucous membranes NECK: No cervical or supraclavicular lymphadenopathy. No JVD. CARDIOVASCULAR: RRR, normal S1 and S2. No murmurs, gallops, rubs. LUNGS: CTAB, no W/R/R ABDOMEN: Soft, non-tender, non-distended, bowel sounds present. No hepatosplenomegaly. No masses or eccymosis. No CVA tenderness. G tube out of abdomen. EXTREMITIES: No swelling or edema SKIN: Multiple raised, stuck on brown-yellow plaques along anterior chest. surrounding area of erythema around feeding tube slightly redder today but overall healing well NEUROLOGICAL: No focal or sensory deficits. CN II-XII grossly intact. LABORATORY DATA: See below. MICROBIOLOGY: BCx x 2 sets: NG IMAGIN08/17/20 CT angiogram chest: 1. No pulmonary embolism. 2. Moderate loculated right pleural effusion. No pneumothorax. 3. Acute compression fractures of T3, T4, T5, and T6 as detailed above, which are new compared to the prior CT chest on 07/02/2019. 4. Some of the ill-defined opacities in the left lower lobe have resolved since the prior CT chest on 07/02/2019, and there is a persistent irregular opacity measuring up to 1 cm in the left lower lobe and stable pulmonary nodules in the right lung compared to the prior CT chest on 07/02/2019. Fleischner Society follow up recommendations for incidental nodules are not indicated. Follow up per the patient's medical condition. 08/17/2020 CT abd/pelvis w/ IV contrast only: 1. Cholelithiasis without CT evidence for cholecystitis. 2. Colonic diverticulosis without evidence for diverticulitis. 3. Enlarged prostate. 4. Patent aorto bi common iliac stent in place in an infrarenal abdominal aortic aneurysm that measures 3 cm x 3 cm in diameter, which is stable compared to the prior CT abdomen and pelvis on 06/03/2020. No rupture of the aneurysm or endoleak. 5. 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 6. Small amount of free fluid in the pelvis, which is similar in appearance compared to the prior CT abdomen and pelvis on 06/03/2020. ASSESSMENT: Patient is a 79 year old male with a history of soft palate neck cancer and not fully treated lung cancer who presents with non-traumatic back pain that was found to be related to his thoracic compression fractures and admitted for pain control and physical therapy due to deconditioning. PLAN: #Leaking G-tube -Replaced on 08/21 ;however, continues to leak despite modifications, taken out of stomach this AM -GJ conversion was not able to be done, discussed with both Dr. Bland and Dr. Hancock. -Dr. Bland to decide on plan for tube by 08/25/20. -PPN -NPO except meds through tube -Erythema and redness around feeding tube present but not as bad as was before -F/u surgery, dietary recommendations #Burning of right flank, under right arm-chronic per patient, not acute -Hx of shingles -On exam, NO areas of redness or concern currently. -Would encourage nursing and providers to keep eye out for developing rash in this area # T3-T6 compression fractures -Ortho has seen, recommend WBAT -Ortho recommends f/u after discharge with spine surgeon, no emergent need -Currently on morphine IV. Have switched back and forth so many times within the last several days will keep on IV for now. When consistently taking tube feeds/meds in tube, c/W oxycodone/acetaminophen 10-325 mg for severe pain in addition to moderate pain control with 7.5-325 mg dosing. -PT: Hopes of d/c home with family providing 27/02 -C/w PT/OT while here #ELLIOT, chronic -H/H stable -F/u occult blood -C/w iron supplementation -CBC daily #Thrombocytopenia, chronic -Since 2018 -PLTS 93 -Stopped lovenox -Monitor CBC daily # Deconditioning, acute on chronic 2/2 to compression fractures above -Chronic illness -PT/OT -Nutritional optimization # Moderate R-sided pleural effusion - Per the CT report this represents a stable chronic finding -97% on RA # LLL stage IIIB non small cell lung cancer - Previously on chemo but no treatment since 2018 - Patient is no longer interested in treatment and stop seeking treatment about a year ago. - Guaifenesin for handling secretions # Hypertensive heart disease. # Bradycardia with a pacemaker. # BPH -Previously on flomax # Anxiety -C/w xanax, hydroxyzine #GERD -PPI, famotidine, carafate # COPD -Stable -Continue home albuterol DVT px -TEDS, SCD Resolved issues: #Orthostatic hypotension likely 2/2 to decreased intake DISPOSITION: Currently inpatient status. Will need feeding tube to be working prior to discharge. Plan is hopeful for home with 27/02 care by family when medically improved. VS, I&O, 24H, Fishbone Vital Signs/I&O Vital Signs Date Time Temp Pulse Resp B/P (MAP) Pulse Ox O2 Delivery O2 Flow Rate FiO2 08/24/20 16:55 12 Room Air 08/24/20 16:15 98.3 77 136/65 (88) 93 08/24/20 15:36 2 I&O- Last 24 Hours up to 6 AM 08/24/20 06:00 Intake Total 2360 ml Output Total 1100 ml Balance 1260 ml Laboratory Data 24H LABS Laboratory Tests 2 08/24/20 05:22: Nucleated Red Blood Cells % (auto) 0.0, Anion Gap 4L, Glomerular Filtration Rate > 60.0, Calcium Level 8.5L, Total Bilirubin 0.4, Aspartate Amino Transf (AST/SGOT) 11, Alanine Aminotransferase (ALT/SGPT) 23, Alkaline Phosphatase 104, Total Protein 5.6L, Albumin 2.3L, Albumin/Globulin Ratio 0.7 CBC/BMP Laboratory Tests 08/24/20 05:22 Microbiology Microbiology 08/17/20 Blood Culture - Final, Complete NO GROWTH AFTER 5 DAYS 08/17/20 Blood Culture - Final, Complete NO GROWTH AFTER 5 DAYS Current Medications Current Medications Medications (Trade) Dose Ordered Sig/Mallorie Route PRN Reason Start Time Stop Time Status Last Admin Dose Admin Acetaminophen (Tylenol Tab) 650 mg Q4H PRN PEG MILD PAIN OR FEVER 08/18/20 01:00 Acetaminophen/ Hydrocodone Bitart (Anexsia, [place] 7.5mg/325mg) 1 tab QID PRN PEG PAIN 08/19/20 14:45 08/20/20 11:07 DC 08/19/20 16:49 Acetaminophen/ Hydrocodone Bitart (Anexsia, [place] 7.5mg/325mg) 1 tab QIDP PRN PEG MODERATE PAIN (PS 5-7) 08/20/20 18:30 08/21/20 12:03 DC 08/21/20 10:31 Acetaminophen/ Hydrocodone Bitart (Lortab Liquid 7.5-325 Mg/15ml) 15 ml QIDP PRN PEG MODERATE PAIN (PS 5-7) 08/21/20 12:15 08/23/20 19:17 DC 08/23/20 18:14 Acetaminophen/ Hydrocodone Bitart (Lortab Liquid 7.5-325 Mg/15ml) 20 ml Q4HP PRN PEG SEVERE PAIN (PS 8-10) 08/21/20 12:15 08/23/20 19:17 DC 08/23/20 03:11 Acetaminophen/ Hydrocodone Bitart (Lortab Liquid 7.5-325 Mg/15ml) 20 ml Q4HP PRN PO SEVERE PAIN (PS 8-10) 08/21/20 12:15 08/21/20 12:06 DC Acetaminophen/ Hydrocodone Bitart ([place], Anexsia 5/325) 2 tab Q4HP PRN PO SEVERE PAIN (PS 8-10) 08/21/20 11:45 08/21/20 12:05 DC Acetaminophen/ Hydrocodone Bitart ([place], Anexsia 5/325) 2 tab Q6H PRN PEG MODERATE/SEVERE PAIN (PS 1-7) 08/18/20 13:00 08/19/20 08:48 DC 08/19/20 08:37 Acetaminophen/ Hydrocodone Bitart ([place], Anexsia 5/325) 2 tab Q6H PRN PO MODERATE/SEVERE PAIN (PS 1-7) 08/18/20 01:00 08/18/20 09:30 DC Acyclovir (Zovirax) 400 mg BID PEG 08/18/20 09:00 08/24/20 10:23 Albuterol Sulfate (Proventil, Ventolin Hfa) 2 puff QID PRN INH WHEEZING 08/18/20 01:00 Alprazolam (Xanax) 0.5 mg BID PEG 08/18/20 09:00 08/24/20 10:23 Amino Ac/Electrol/ Dextrose/Calcium 1,000 ml @ 50 mls/hr Q20H IV 08/23/20 18:00 08/24/20 07:21 Cephalexin Monohydrate (Keflex) 500 mg BID PEG 08/18/20 09:00 08/24/20 10:55 DC 08/24/20 10:23 Dextrose/Sodium Chloride 1,000 ml @ 100 mls/hr Q10H IV 08/18/20 17:45 08/21/20 20:45 DC 08/21/20 20:04 Digoxin (Lanoxin) 0.125 mg Q2D PEG 08/18/20 09:00 08/24/20 10:23 Docusate Sodium (Colace Liquid) 100 mg BID GT 08/20/20 21:00 08/24/20 10:22 Doxazosin Mesylate (Cardura) 1 mg DAILY PEG 08/18/20 09:00 08/22/20 09:43 DC 08/20/20 15:52 Enoxaparin Sodium (Lovenox) 40 mg DAILY SC 08/18/20 09:00 08/19/20 08:11 DC 08/18/20 10:51 Famotidine (Pepcid) 20 mg DAILY PRN PEG ACID REFLUX 08/18/20 01:00 08/23/20 03:12 Fat Emulsion Intravenous 500 ml @ 20 mls/hr ONCE@1800 IV 08/23/20 18:00 08/24/20 17:59 08/23/20 18:13 Fat Emulsion Intravenous 500 ml @ 20 mls/hr ONCE@1800 IV 08/24/20 18:00 08/25/20 17:59 Ferrous Sulfate (Ferrous Sulfate) 300 mg BID PEG 08/21/20 10:00 08/24/20 10:22 Guaifenesin (Robitussin) 25 ml BID PRN PEG CONGESTION 08/18/20 01:00 08/20/20 17:16 Home Med (Med Rec Complete!) ASDIRECTED XX 08/17/20 23:45 08/17/20 23:51 DC Hydroxyzine HCl (Atarax) 25 mg QID PRN PEG ITCHING 08/18/20 01:00 Magnesium Hydroxide (Milk Of Magnesia) 15 ml DAILY PRN PEG CONSTIPATION 08/18/20 01:00 08/23/20 12:40 Morphine Sulfate (Morphine Sulfate Inj) 2 mg Q3H PRN IV breakthrough pain 08/18/20 01:00 08/18/20 17:29 DC 08/18/20 09:23 Morphine Sulfate (Morphine Sulfate Inj) 2 mg Q3HP PRN IV SEVERE PAIN (PS 8-10) 08/20/20 11:15 08/20/20 18:23 DC 08/20/20 15:49 Morphine Sulfate (Morphine Sulfate Inj) 2 mg Q4H PRN IV MODERATE PAIN (PS 5-7) 08/19/20 09:00 08/19/20 14:33 DC Morphine Sulfate (Morphine Sulfate Inj) 3 mg Q4HP PRN IV MODERATE/SEVERE PAIN (PS 5-10) 08/23/20 19:00 08/24/20 16:55 Morphine Sulfate (Morphine Sulfate Inj) 4 mg Q30M PRN IV SEVERE PAIN (PS 8-10) 08/17/20 17:15 08/18/20 01:25 DC 08/17/20 17:42 Ondansetron HCl (ZOFRAN INJection) 4 mg Q6H PRN IV NAUSEA 08/18/20 01:00 08/23/20 10:04 DC 08/23/20 05:33 Ondansetron HCl (ZOFRAN INJection) 8 mg Q6H PRN IV NAUSEA 08/23/20 13:00 08/24/20 09:32 Pantoprazole Sodium (Protonix) 40 mg Q24H IV 08/18/20 16:00 08/24/20 16:50 Patient Own Medication (Patient'S Own Med) 1 ea QID PEG 08/18/20 09:00 08/18/20 01:31 DC Potassium Chloride 10 meq/ IV Miscellaneous Supplies 100 ml @ 100 mls/hr Q1H IV 08/20/20 09:00 08/20/20 12:59 DC 08/20/20 18:45 Prednisone (Deltasone) 5 mg DAILY PEG 08/18/20 09:00 08/24/20 10:22 Sodium Chloride 1,000 ml @ 85 mls/hr [id number] IV 08/23/20 09:00 08/23/20 09:23 Sucralfate (Carafate Suspension) 1 gm ACHS PEG 08/18/20 07:30 08/24/20 16:50 Tamsulosin HCl (Flomax) 0.4 mg DAILY XX 08/18/20 09:00 08/18/20 03:29 DC Zinc Oxide (Boudreauxs Butt Paste) To PEG tube insert... TID TOP 08/18/20 16:00 08/24/20 16:50 Allergies Coded Allergies: No Known Allergies (Unverified , 06/03/20) Gay Renee MD Aug 24, 2020 17:58
[2020-08-24] MEDS ORDERED: FAT EMULSION IV 20% 500 ML IV SCH (18:00)
[2020-08-24 22:00] VITALS: BP 96/52
[2020-08-25] MEDS: MORPHINE 4 MG/ML 1ML VIAL/SYRINGE (J2270) IV PRN ×3 (04:51→21:04)
[2020-08-25 05:37] LABS: HEMATOCRIT 30.5 % (42.0-52.0); HEMOGLOBIN 9.3 g/dl (13.5-17.5); MEAN CORPUSCULAR HEMOGLOBIN 28.6 pg (27.0-33.0); MEAN CORPUSCULAR HGB CONC 30.5 g/dl (32.0-36.5); MEAN CORPUSCULAR VOLUME 93.8 fl (80.0-96.0); RED BLOOD COUNT 3.25 10^6/uL (4.30-6.10); WHITE BLOOD COUNT 4.3 10^3/uL (4.0-10.0)
[2020-08-25 05:39] LABS: PLATELET COUNT, AUTOMATED 81 10^3/uL (150-450)
[2020-08-25 06:00] VITALS: BP 94/50
[2020-08-25 06:09] LABS: ALBUMIN 2.3 GM/DL (3.2-5.2); ALT/SGPT 17 U/L (12-78); BILIRUBIN,TOTAL 0.3 MG/DL (0.2-1.0); BLOOD UREA NITROGEN 17 MG/DL (7-18); CALCIUM LEVEL 8.6 MG/DL (8.8-10.2); CARBON DIOXIDE LEVEL 29 MEQ/L (21-32); CHLORIDE LEVEL 103 MEQ/L (98-107); CREATININE FOR GFR 0.68 MG/DL (0.70-1.30); GLOMERULAR FILTRATION RATE > 60.0 (>42); GLUCOSE, FASTING 93 MG/DL (70-100); POTASSIUM SERUM 3.8 MEQ/L (3.5-5.1); SODIUM LEVEL 139 MEQ/L (136-145); TOTAL PROTEIN 5.5 GM/DL (6.4-8.2)
[2020-08-25] MEDS: FERROUS SULFATE 300MG/5ML UDC LIQUID PEG SCH ×2 (09:00→21:16)
[2020-08-25] MEDS: ALPRAZolam 0.5 MG TAB PEG SCH ×2 (09:00→21:16)
[2020-08-25] MEDS: predniSONE 5 MG TAB PEG SCH (09:00)
[2020-08-25] MEDS: SUCRALFATE SUSP 1GM/10ML UD PEG SCH ×4 (09:00→21:16)
[2020-08-25] MEDS: DOCUSATE SOD LIQ 100MG/10ML UDC GT SCH ×2 (09:00→21:16)
[2020-08-25] MEDS: ACYCLOVIR 200 MG CAPSULE PEG SCH ×2 (09:00→21:16)
[2020-08-25] MEDS: BOUDREAUX'S BUTT PASTE TOP SCH ×3 (09:01→21:17)
--- NOTE | 2020-08-25 09:37 | IPNPDOC ---
Text Note Date of Service The patient was seen on 08/25/20. NOTE SUBJECTIVE: Patient seen and examined at bedside. No acute overnight events reported. Patient has no new medical complaints this morning. OBJECTIVE: VITAL SIGNS: See below GENERAL: Cachectic, resting in bed, NAD HEENT: NC/AT, EOMI, no scleral icterus, moist mucous membranes CARDIOVASCULAR: RRR, normal S1 and S2. No murmurs, gallops, rubs. LUNGS: CTA B/L ABDOMEN: Soft, non-tender, non-distended, bowel sounds present. 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 PLAN: #Leaking G-tube -Replaced on 08/21 ;however, continues to leak despite modifications -GJ conversion was not able to be done, previously discussed with both Dr. Bland and Dr. Hancock. -PPN -NPO except meds through tube -Erythema and redness around feeding tube present but not as bad as was before -F/u surgery, dietary recommendations #Burning of right flank, under right arm-chronic per patient, not acute -Hx of shingles -On exam, NO areas of redness or concern currently. # T3-T6 compression fractures -Ortho has seen, recommend WBAT -Ortho recommends f/u after discharge with spine surgeon, no emergent need -Currently on morphine IV. Have switched back and forth so many times within the last several days will keep on IV for now. When consistently taking tube feeds/meds in tube, c/W oxycodone/acetaminophen 10-325 mg for severe pain in addition to moderate pain control with 7.5-325 mg dosing. -PT: Hopes of d/c home with family providing 27/02 -C/w PT/OT while here #ELLIOT, chronic -H/H stable -F/u occult blood -C/w iron supplementation -CBC daily #Thrombocytopenia, chronic -Since 2018 -PLTS 93 -Stopped lovenox -Monitor CBC daily # Deconditioning, acute on chronic 2/2 to compression fractures above -Chronic illness -PT/OT -Nutritional optimization # Moderate R-sided pleural effusion - Per the CT report this represents a stable chronic finding -97% on RA # LLL stage IIIB non small cell lung cancer - Previously on chemo but no treatment since 2018 - Patient is no longer interested in treatment and stop seeking treatment about a year ago. - Guaifenesin for handling secretions # Hypertensive heart disease. # symptomatic Bradycardia with a pacemaker. # BPH -Previously on flomax # Anxiety -C/w xanax, hydroxyzine #GERD -PPI, famotidine, carafate # COPD -Stable -Continue home albuterol DVT px -TEDS, SCD Resolved issues: #Orthostatic hypotension likely 2/2 to decreased intake DISPOSITION: Follow up with surgery regarding Gtube status VS,Fishbone, I+O VS, Fishbone, I+O Laboratory Tests 08/25/20 05:32 Vital Signs Date Time Temp Pulse Resp B/P (MAP) Pulse Ox O2 Delivery O2 Flow Rate FiO2 08/25/20 09:01 16 08/25/20 06:00 98.5 70 94/50 (65) 92 Room Air 08/24/20 15:36 2 I&O- Last 24 Hours up to 6 AM 08/25/20 06:00 Intake Total 0 ml Output Total 1925 ml Balance -1925 ml IBIS CHIU MD Aug 25, 2020 09:37
[2020-08-25] MEDS: METOCLOPRAMIDE HCL LIQUID 10 MG/10 ML UDC PEG SCH ×4 (10:58→21:16)
[2020-08-25 14:00] VITALS: BP 118/58
[2020-08-25] MEDS: PANTOPRAZOLE 40MG VIAL (C9113 PER 1) IV SCH (16:25)
[2020-08-25 22:00] VITALS: BP 96/58
[2020-08-26] MEDS: MORPHINE 4 MG/ML 1ML VIAL/SYRINGE (J2270) IV PRN ×5 (01:40→21:01)
[2020-08-26 06:00] VITALS: BP 94/57
[2020-08-26 06:09] LABS: HEMOGLOBIN 9.2 g/dl (13.5-17.5); MEAN CORPUSCULAR HGB CONC 29.7 g/dl (32.0-36.5); MEAN CORPUSCULAR VOLUME 94.2 fl (80.0-96.0); RED BLOOD COUNT 3.29 10^6/uL (4.30-6.10)
[2020-08-26 06:23] LABS: ALBUMIN 2.3 GM/DL (3.2-5.2); ALT/SGPT 16 U/L (12-78); BILIRUBIN,TOTAL 0.4 MG/DL (0.2-1.0); BLOOD UREA NITROGEN 18 MG/DL (7-18); CALCIUM LEVEL 8.6 MG/DL (8.8-10.2); CARBON DIOXIDE LEVEL 30 MEQ/L (21-32); CHLORIDE LEVEL 106 MEQ/L (98-107); CREATININE FOR GFR 0.74 MG/DL (0.70-1.30); GLOMERULAR FILTRATION RATE > 60.0 (>42); GLUCOSE, FASTING 101 MG/DL (70-100); POTASSIUM SERUM 3.7 MEQ/L (3.5-5.1); SODIUM LEVEL 142 MEQ/L (136-145); TOTAL PROTEIN 5.8 GM/DL (6.4-8.2)
[2020-08-26 06:29] LABS: PLATELET COUNT, AUTOMATED 85 10^3/uL (150-450)
[2020-08-26] MEDS: SUCRALFATE SUSP 1GM/10ML UD PEG SCH ×4 (09:33→20:59)
[2020-08-26] MEDS: METOCLOPRAMIDE HCL LIQUID 10 MG/10 ML UDC PEG SCH ×4 (09:33→20:59)
[2020-08-26] MEDS: predniSONE 5 MG TAB PEG SCH (09:33)
[2020-08-26] MEDS: DIGOXIN 0.125 MG TAB PEG SCH (09:33)
[2020-08-26] MEDS: ALPRAZolam 0.5 MG TAB PEG SCH ×2 (09:33→20:59)
[2020-08-26] MEDS: ACYCLOVIR 200 MG CAPSULE PEG SCH ×2 (09:33→20:59)
[2020-08-26] MEDS: BOUDREAUX'S BUTT PASTE TOP SCH ×3 (09:34→21:00)
[2020-08-26] MEDS: FERROUS SULFATE 300MG/5ML UDC LIQUID PEG SCH ×2 (09:34→20:59)
[2020-08-26] MEDS: DOCUSATE SOD LIQ 100MG/10ML UDC GT SCH ×2 (09:34→21:25)
--- NOTE | 2020-08-26 10:49 | IPNPDOC ---
Text Note Date of Service The patient was seen on 08/26/20. NOTE SUBJECTIVE: Patient seen and examined at bedside. No acute overnight events reported. Patient has no new medical complaints this morning. OBJECTIVE: VITAL SIGNS: See below GENERAL: Cachectic, resting in bed, NAD HEENT: NC/AT, EOMI, no scleral icterus, moist mucous membranes CARDIOVASCULAR: RRR, normal S1 and S2. No murmurs, gallops, rubs. LUNGS: CTA B/L ABDOMEN: Soft, non-tender, non-distended, bowel sounds present. 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 PLAN: #Leaking G-tube -Replaced on 08/21 ;however, continues to leak despite modifications -GJ conversion was not able to be done, previously discussed with both Dr. Bland and Dr. Hancock. -PPN -NPO except meds through tube -Erythema and redness around feeding tube present but not as bad as was before -F/u surgery, dietary recommendations - d/w surgery - assistance appreciated - waiting for specialized tube - plan for replacement this week #Burning of right flank, under right arm-chronic per patient, not acute -Hx of shingles -On exam, NO areas of redness or concern currently. # T3-T6 compression fractures -Ortho has seen, recommend WBAT -Ortho recommends f/u after discharge with spine surgeon, no emergent need -Currently on morphine IV. Have switched back and forth so many times within the last several days will keep on IV for now. When consistently taking tube feeds/m eds in tube, c/W oxycodone/acetaminophen 10-325 mg for severe pain in addition to moderate pain control with 7.5-325 mg dosing. -PT: Hopes of d/c home with family providing 27/02 -C/w PT/OT while here #ELLIOT, chronic -H/H stable -F/u occult blood -C/w iron supplementation -CBC daily #Thrombocytopenia, chronic -Since 2018 -PLTS 93 -Stopped lovenox -Monitor CBC daily # Deconditioning, acute on chronic 2/2 to compression fractures above -Chronic illness -PT/OT -Nutritional optimization # Moderate R-sided pleural effusion - Per the CT report this represents a stable chronic finding -97% on RA # LLL stage IIIB non small cell lung cancer - Previously on chemo but no treatment since 2018 - Patient is no longer interested in treatment and stop seeking treatment about a year ago. - Guaifenesin for handling secretions # Hypertensive heart disease. # symptomatic Bradycardia with a pacemaker. # BPH -Previously on flomax # Anxiety -C/w xanax, hydroxyzine #GERD -PPI, famotidine, carafate # COPD -Stable -Continue home albuterol DVT px -TEDS, SCD Resolved issues: #Orthostatic hypotension likely 2/2 to decreased intake DISPOSITION: plan is for exchanging G tube this week, waiting for specialized tube VS,Fishbone, I+O VS, Fishbone, I+O Laboratory Tests 08/26/20 05:21 Vital Signs Date Time Temp Pulse Resp B/P (MAP) Pulse Ox O2 Delivery O2 Flow Rate FiO2 08/26/20 09:33 78 08/26/20 06:30 18 08/26/20 06:14 Room Air 08/26/20 06:00 98.2 94/57 (69) 97 08/24/20 15:36 2 I&O- Last 24 Hours up to 6 AM 08/26/20 06:00 Intake Total 630 ml Output Total 900 ml Balance -270 ml IBIS CHIU MD Aug 26, 2020 10:49
[2020-08-26 14:00] VITALS: BP 117/55
[2020-08-26] MEDS: PANTOPRAZOLE 40MG VIAL (C9113 PER 1) IV SCH (16:47)
[2020-08-26] MEDS: MOM 30ML SUSPENSION UDC PEG PRN (20:59)
[2020-08-26 22:00] VITALS: BP 113/56
[2020-08-27] MEDS: MORPHINE 4 MG/ML 1ML VIAL/SYRINGE (J2270) IV PRN ×2 (01:02→05:35)
[2020-08-27 06:00] VITALS: BP 112/59
[2020-08-27 07:43] LABS: HEMATOCRIT 30.6 % (42.0-52.0); HEMOGLOBIN 9.2 g/dl (13.5-17.5); MEAN CORPUSCULAR HEMOGLOBIN 28.6 pg (27.0-33.0); MEAN CORPUSCULAR HGB CONC 30.1 g/dl (32.0-36.5); RED BLOOD COUNT 3.22 10^6/uL (4.30-6.10); WHITE BLOOD COUNT 5.3 10^3/uL (4.0-10.0)
[2020-08-27 07:45] LABS: PLATELET COUNT, AUTOMATED 92 10^3/uL (150-450)
[2020-08-27 08:12] LABS: ALBUMIN 2.5 GM/DL (3.2-5.2); ALT/SGPT 13 U/L (12-78); BILIRUBIN,TOTAL 1.4 MG/DL (0.2-1.0); BLOOD UREA NITROGEN 20 MG/DL (7-18); CALCIUM LEVEL 8.3 MG/DL (8.8-10.2); CARBON DIOXIDE LEVEL 33 MEQ/L (21-32); CHLORIDE LEVEL 103 MEQ/L (98-107); CREATININE FOR GFR 0.71 MG/DL (0.70-1.30); GLOMERULAR FILTRATION RATE > 60.0 (>42); GLUCOSE, FASTING 121 MG/DL (70-100); MAGNESIUM LEVEL 1.9 MG/DL (1.8-2.4); PHOSPHORUS LEVEL 1.8 MG/DL (2.5-4.9); SODIUM LEVEL 139 MEQ/L (136-145); TOTAL PROTEIN 5.6 GM/DL (6.4-8.2)
[2020-08-27] MEDS: FERROUS SULFATE 300MG/5ML UDC LIQUID PEG SCH (08:48)
[2020-08-27] MEDS: SUCRALFATE SUSP 1GM/10ML UD PEG SCH ×2 (08:48→12:11)
[2020-08-27] MEDS: ALPRAZolam 0.5 MG TAB PEG SCH (08:48)
[2020-08-27] MEDS: ONDANSETRON 4MG/2ML VIAL IV PRN (08:48)
[2020-08-27] MEDS: DOCUSATE SOD LIQ 100MG/10ML UDC GT SCH (08:48)
[2020-08-27] MEDS: BOUDREAUX'S BUTT PASTE TOP SCH (08:49)
[2020-08-27] MEDS: ACYCLOVIR 200 MG CAPSULE PEG SCH (08:49)
[2020-08-27] MEDS: predniSONE 5 MG TAB PEG SCH (08:49)
[2020-08-27] MEDS: METOCLOPRAMIDE HCL LIQUID 10 MG/10 ML UDC PEG SCH (09:00)
--- NOTE | 2020-08-27 10:46 | POST-OPPD ---
Postoperative Procedure Note Date Of Procedure: Aug 24, 2020 Time Of Procedure: 16:00 IR Gastrostomy to gastrojejunostomy conversion. IR Gastrostomy replacement. IR Moderate sedation. Clinical Information:Patient with chronic gastrostomy catheter. High residuals and malnourished. Referred for G to GJ conversion. Physician: Dr. Hancock. Procedure: The patient was advised of the benefits, risks, and alternatives of the procedure and informed consent was obtained. A time out was performed with verification of the patient's name, MRN, site of procedure, and type of procedure to be performed. The patient was positioned in the supine position on the angiographic table. The site was prepped and draped in the usual sterile fashion. Moderate sedation was performed by the physician including the presence of an independent trained RN, who assisted in monitoring the patient's level of consciousness and physiological status. Following the administration of fentanyl and Versed, the physician spent 60 minutes of continuous [id number] time with the patient. A director of career services radiograph reveals an aortic stent graft. The abdominal skin is red, raw, and weeping with extensive desquamation. The soft tissues surrounding the previously created gastrostomy catheter tract were anesthetized with lidocaine. A Kumpe catheter in conjunction with the wire was advanced into the stomach under fluoroscopy guidance. Injection of contrast confirmed catheterization of the stomach. Air and contrast was injected into the stomach. This demonstrates the angle of the gastrostomy tract is cephalad, angled towards the fundus. The catheter in conjunction with a wire was used to try to catheterize the gastric antrum and duodenum. This was not possible. The angle of access and now formed tract is angulated towards the fundus. It is not possible to perc utaneously convert this gastrostomy tract into a gastrojejunostomy catheter. A new 20 Spanish gastrostomy catheter was advanced over the wire under fluoroscopy guidance into the stomach. The retention balloon was inflated and retracted to the anterior stomach wall. The patient tolerated the procedure well and was returned to the PRU in stable condition. EBL: <5 mL. Complications:None. Conclusion: 1. Attempted G to GJ conversion demonstrates present gastrostomy tract is angulated cephalad towards the fundus and it is not possible to percutaneously convert this into a GJ. 2. Successful replacement of 20 Spanish gastrostomy catheter. Thank you for this referral. Cc Dr. Paul HANCOCK,SIMI GAGE Aug 27, 2020 10:46
--- NOTE | 2020-08-27 11:07 | IPN ---
PROGRESS NOTE DATE: 08/25/2020 Overall, the gastrostomy (G) tube really has not drained much around the tube itself overnight and it looks as though it may be a little while before we get that tube in place or available. Will see if we can order that over the day today. If not, we may need to replace it with a gastrojejunostomy that they have available in the interventional radiology department, however, this is less of an endoscopically type placed tube and is definitely less flexible and may be prone to not being as functional. Mostly, this is semantics at this time but he really has not had any drainage around his G tube site. I do feel that it is reasonable to start him on some Reglan to see if we can empty out his stomach a little bit better and keep him on some stool softeners, probably increase the amount that he is getting, and we will restart his tube feedings at a very low dose to see if we can reassess its function. Patient understands that we are still planning on replacement of the tube in 48 hours or so, but given his significant improvement at the G tube site we may be able to forego this if we have some significant improvement of gastric function with metoclopramide.
--- NOTE | 2020-08-27 11:07 | IPN ---
PROGRESS NOTE DATE: 08/26/2020 SUBJECTIVE: The patient overall his G-tube has been functioning very well. We have had him at a low dose. He has not had any drainage around the site. He is not complaining of any significant pain or discomfort, and it may be that the metoclopramide is providing much more of an improvement than we expected. OBJECTIVE: In any case, his abdomen is soft. His G-tube site seems to be healing nicely and overall, he looks better and is wondering about replacement of the G-tube or possible discharge, depending on the drainage amount. ASSESSMENT AND PLAN: At this point, we have had a long discussion concerning his G-tube and specifically, we have discussed that if we can increase the flow rate and he tolerates this without significant G-tube residuals and without drainage around the G-tube site; then, we could probably discharge him home on a kangaroo pump/gravity feeding with gravity feeding allowing it to just go in a little bit slower than the typical bolus feeds that he has been doing over time. He understands our current plan, and we will see how he does overnight. We still have him on the schedule, but we will reassess in the morning, and if he has not had any drainage around the G-tube site, we will plan on discharge to home as per medicine deems reasonable.
--- NOTE | 2020-08-27 11:07 | IPN ---
PROGRESS NOTE DATE: 08/24/2020 Patient was supposed to get a feeding gastrojejunostomy today, however, they were unable to feed this into the small bowel because of the angle of the stomach/gastrostomy tube. Patient still has a fair bit of drainage around this. They replaced the gastrostomy tube with a smaller tube. On his physical exam, his gastrostomy tube site is starting to heal in a little bit nicer, it is less drainage, less erythema around the skin, and overall improved to some extent. I have discussed with the hospitalist obtaining a gastrostomy/jejunostomy tube from the outside source to see if we cannot proceed with placement of the tube within the next few days and we will see if we can arrange that. Otherwise, just keep the gastrostomy (G) tube to gravity and hopefully that will continue healing up the site and then we will progress to clamping it with medications, etc. But at this point, we will plan for replacement of this tube on or Monday.
--- NOTE | 2020-08-27 11:13 | IPN ---
PROGRESS NOTE DATE: 08/27/2020 The patient has made some significant improvements and really has no G-tube drainage at the site. He does not have any pain or discomfort at his G-tube site, and I anticipate the Reglan has made the difference with his G-tube emptying/gastric emptying. Thus given its significant improvements and no side effects from the metoclopramide, I do feel that it is reasonable to continue him with metoclopramide after discharge; but more importantly, I would feel that it is very reasonable to discharge him home on tube feeds. I still feel that he inherently probably has some decreased gastric functioning/gastric emptying issues and most likely, it is secondary to the two previous gastrostomy tube placements that he has had; and given that, he would benefit from a lower infusion and thus, a more continuous type of infusion or at least a slower gravity based infusion would be more reasonable for him. I would be glad to see him in a couple of weeks to reassess him and if he is starting to have increased drainage, then we can re-assess when to replace this gastrostomy tube. He understands our current plan. He would like to go home today and I will defer that judgment to the medicine service; but otherwise, no other surgical intervention needed at this time.
[2020-08-27] MEDS ORDERED: ANEXSIA, NORCO 7.5MG/325MG TABLET(HYDROCODONE/APAP) PO PRN (12:30)
[2020-08-27] MEDS ORDERED: METO10ELUD PEG (13:47)
[2020-08-27 14:00] VITALS: BP 110/90
--- NOTE | 2020-08-27 16:33 | DS.PDOC ---
Discharge Summary General Date of Admission Aug 17, 2020 at 23:48 Date of Discharge 08/27/20 Discharge Summary PROCEDURES PERFORMED DURING STAY: revision of leaking GJ tube by IR ADMITTING DIAGNOSES: #leaking GJ tube PAST MEDICAL HISTORY: #. 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 LLL stage IIIB non small cell lung cancer previously on chemo but no treatme nt since 2018 #. Hx of CO #. Hypertensive heart disease. #. Bradycardia with a pacemaker. #. BPH #. GERD #. COPD PAST SURGICAL HISTORY: #. Left sided chest tube/pleurX catheter in 06/2019 for recurrent pleural effusion #. Dual chamber Pacemaker placed at [facility] #. G-tube insertion s/p dysphagia in setting of radiation induced throat injury (12/2018) #. Colectomy with colostomy, colostomy take down and reanastomosis. #. AAA repair COMPLICATIONS/CHIEF COMPLAINT: Pleural Effusion, Right, Thoracic Compression Fx. HISTORY OF PRESENT ILLNESS: Patient presents with a week long history of back pain. He notes no inciting event and is a poor historian, but feels like for at least the past 2 days he has had worsening upper back pain bilaterally with radiation to the front in what he describes as chest pain but on further questioning are the lateral surfaces of his upper ribs. He states he was planning on leaving the emergency department but then felt too weak to do so and has resigned himself to staying for pain control and assistance with deconditioning. While in the ED he also complained of SOB that he feels is related to his chest pain and admitted to intermittent abdominal pain. CTA of his chest demonstrated a moderate loculated pleural effusion on the right and stable findings on the left, ct abd/pelvis with contrast showed chronic findings documented below. The patient was sat urating well on room air the entire time, had no elevations in his WBC count, lactic acid was normal, but did have a mildly elevated CRP. Patient was given one time dose of rocephin in the ED. 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 #Leaking G-tube -follow as per surgery - leak appears to have resolved - replacement tube ordered - will be exchanged as outpatient - can follow as outpatient as per surgery # T3-T6 compression fractures -Ortho has seen, recommend WBAT -Ortho recommends f/u after discharge with spine surgeon, no emergent need -patient has pain meds at home - will f/u with pcp #ELLIOT, chronic -H/H stable #Thrombocytopenia, chronic -Since 2019 - no bleeding # Deconditioning, acute on chronic 2/2 to compression fractures above -Chronic illness # Moderate R-sided pleural effusion - Per the CT report this represents a stable chronic finding -97% on RA # LLL stage IIIB non small cell lung cancer - Previously on chemo but no treatment since 2019 - Patient is no longer interested in treatment and stop seeking treatment about a year ago. - Guaifenesin for handling secretions # Hypertensive heart disease. # symptomatic Bradycardia with a pacemaker. # BPH -Previously on flomax # Anxiety -C/w xanax, hydroxyzine #GERD -PPI, famotidine, carafate # COPD -Stable DISCHARGE MEDICATIONS: Please see below. ALLERGIES: Please see below. PHYSICAL EXAMINATION ON DISCHARGE: VITAL SIGNS: See below GENERAL: Cachectic, resting in bed, NAD HEENT: NC/AT, EOMI, no scleral icterus, moist mucous membranes CARDIOVASCULAR: RRR, normal S1 and S2. No murmurs, gallops, rubs. LUNGS: CTA B/L ABDOMEN: Soft, non-tender, non-distended, bowel sounds present. Gtube present EXTREMITIES: No swelling or edema LABORATORY DATA: Please see below. ACTIVITY: [As tolerated]. DIET: DISCHARGE PLAN: DISPOSITION: Home, Self-Care. DISCHARGE INSTRUCTIONS: 1. . ITEMS TO FOLLOWUP ON ON OUTPATIENT: 1. . DISCHARGE CONDITION: [Stable]. TIME SPENT ON DISCHARGE: Greater than minutes. Vital Signs/I&Os Vital Signs Date Time Temp Pulse Resp B/P (MAP) Pulse Ox O2 Delivery O2 Flow Rate FiO2 08/27/20 14:00 98.4 77 17 110/90 (97) 95 Room Air 08/24/20 15:36 2 I&O- Last 24 Hours up to 6 AM 08/27/20 05:59 Intake Total 760 ml Output Total 200 ml Balance 560 ml Laboratory Data Labs 24H Laboratory Tests 2 08/27/20 07:25: Nucleated Red Blood Cells % (auto) 0.0, Immature Platelet Fraction 6.0, Anion Gap 3L, Glomerular Filtration Rate > 60.0, Calcium Level 8.3L, Phosphorus Level 1.8L, Magnesium Level 1.9, Total Bilirubin 1.4#H, Aspartate Amino Transf ( AST/SGOT) 12, Alanine Aminotransferase (ALT/SGPT) 13, Alkaline Phosphatase 106, Total Protein 5.6L, Albumin 2.5L, Albumin/Globulin Ratio 0.8 CBC/BMP Laboratory Tests 08/27/20 07:25 Microbiology Microbiology 08/17/20 Blood Culture - Final, Complete NO GROWTH AFTER 5 DAYS 08/17/20 Blood Culture - Final, Complete NO GROWTH AFTER 5 DAYS Discharge Medications Scheduled Acyclovir (Acyclovir) 400 Mg Tablet, 400 MG PEG BID, (Reported) Alprazolam (Alprazolam) 0.5 Mg Tablet, 0.5 MG PEG BID, (Reported) Cephalexin (Cephalexin) 500 Mg Capsule, 500 MG PEG BID, (Reported) STARTED 08/11/20 Digoxin (Digoxin) 125 Mcg Tablet, 125 MCG PEG Q2D, (Reported) Doxazosin Mesylate (Doxazosin Mesylate) 1 Mg Tablet, 1 MG PEG DAILY, (Reported) Lactose-Reduced Food/Fiber (Jevity 1.2 Lazaro Liquid) 237 Ml Liquid, 1 LIQ PEG QID, (Reported) TAKES 3 TO 4 TIMES DAILY DEPENDING ON HOW STOMACH FEELS Metoclopramide HCl (Metoclopramide HCl) 10 Mg/10 Ml Solution, 10 MG PEG QID Prednisone (Prednisone) 5 Mg Tablet, 5 MG PEG DAILY, (Reported) Sucralfate (Carafate) 1 Gm/10 Ml Oral.susp, 10 ML PEG ACHS, (Reported) Tamsulosin HCl (Flomax) 0.4 Mg Capsule, 0.4 MG PEG DAILY, (Reported) Scheduled PRN Albuterol Sulfate (Albuterol Sulfate Hfa) 8.5 Gm Hfa.aer.ad, 2 PUFF INH QID PRN for WHEEZING, (Reported) Famotidine (Pepcid) 20 Mg Tablet, 20 MG PEG DAILY PRN for ACID REFLUX, (Reported) Guaifenesin (Guaifenesin) 100 Mg/5 Ml Liquid, 25 ML PEG BID PRN for CONGESTION, (Reported) Hydrocodone/Acetaminophen (Hydrocodone-Acetamin 7.5-325) 1 Each Tablet, 1 TAB PEG QID PRN for PAIN, (Reported) Hydroxyzine Pamoate (Hydroxyzine Pamoate) 25 Mg Capsule, 25 MG PEG QID PRN for ITCHING, (Reported) Magnesium Hydroxide (Milk of Magnesia) 400 Mg/5 Ml Oral.susp, 15 ML PEG DAILY PRN for CONSTIPATION, (Reported) Allergies Coded Allergies: No Known Allergies (Unverified , 06/03/20) IBIS CHIU MD Aug 27, 2020 16:33
== END 2020-08-27 14:45 | disposition home or self-care (01) | DRG 543 ==
LOC: M ED 16:02 → M ED INP 23:48 → M MSPAV 08-18 01:44
PROVIDERS: ADMIT Family Medicine; ATTEND Internal Medicine
PROC: 0DH63UZ Insertion of Feeding Device into Stomach, Percutaneous Approach (ICD-10-PCS; principal; 2020-08-24 15:30)
DX: M48.54XA Collapsed vertebra, not elsewhere classified, thoracic region, initial encounter for fracture (principal); C34.32 Malignant neoplasm of lower lobe, left bronchus or lung; K94.23 Gastrostomy malfunction; I25.2 Old myocardial infarction; I11.9 Hypertensive heart disease without heart failure; N40.0 Benign prostatic hyperplasia without lower urinary tract symptoms; J44.9 Chronic obstructive pulmonary disease, unspecified; I71.4 Abdominal aortic aneurysm, without rupture; K21.9 Gastro-esophageal reflux disease without esophagitis; Z66 Do not resuscitate; I95.1 Orthostatic hypotension; R13.10 Dysphagia, unspecified; R62.7 Adult failure to thrive; F41.9 Anxiety disorder, unspecified; D50.9 Iron deficiency anemia, unspecified; R00.1 Bradycardia, unspecified; Z90.49 Acquired absence of other specified parts of digestive tract; Z98.0 Intestinal bypass and anastomosis status; Z87.891 Personal history of nicotine dependence; Z95.0 Presence of cardiac pacemaker; Z79.52 Long term (current) use of systemic steroids; Z92.21 Personal history of antineoplastic chemotherapy; Z79.899 Other long term (current) drug therapy; Z11.52 Encounter for screening for COVID-19; Z85.818 Personal history of malignant neoplasm of other sites of lip, oral cavity, and pharynx

== ENCOUNTER 2020-09-15 14:05 | Inpatient (IN) | payer MEDICARE ==
[~2020-09-15] VITALS: Ht 175.3 cm; Wt 49.5 kg
[~2020-09-15 14:05] MED LIST changes: +ACYC400T PEG; +AUGM875T28 PO; +AZIT-12 PO; +CEPH500C PEG; +DIGO0.123 PEG; +DOXA1TAB42 PEG; +FLOM0.4C39 PEG; +HYDR1CAP25 PEG; +METO10ELUD PEG; +MILKSUS3 PEG; +PEPC1TAB5 PEG; +PERC5TAB12 PO; +PRED5TA PEG; +SUCR1SS PEG
[2020-09-15] MEDS ORDERED: MORPHINE 4 MG/ML 1ML VIAL/SYRINGE (J2270) IV ONE ×2 (15:45→16:45)
[2020-09-15] MEDS: GASTROGRAFIN SOLUTION 30ML (Q9963) PO SCH ×2 (16:15→19:49)
[2020-09-15 16:22] LABS: BASO % 0.6 % (0.0-1.0); EOS % 0.2 % (0.0-3.0); HEMATOCRIT 35.9 % (42.0-52.0); HEMOGLOBIN 10.5 g/dl (13.5-17.5); LYMPH # 0.4 10^3/uL (1.5-5.0); LYMPH % 7.1 % (24.0-44.0); MEAN CORPUSCULAR HEMOGLOBIN 29.1 pg (27.0-33.0); MEAN CORPUSCULAR HGB CONC 29.2 g/dl (32.0-36.5); MEAN CORPUSCULAR VOLUME 99.4 fl (80.0-96.0); MONO # 0.2 10^3/uL (0.0-0.8); MONO % 4.5 % (0.0-5.0); NEUTROPHILS # 4.6 10^3/uL (1.5-8.5); NEUTROPHILS % 86.7 % (36.0-66.0); PLATELET COUNT, AUTOMATED 118 10^3/uL (150-450); RED BLOOD COUNT 3.61 10^6/uL (4.30-6.10); WHITE BLOOD COUNT 5.4 10^3/uL (4.0-10.0)
[2020-09-15 16:33] LABS: ALT/SGPT 17 U/L (12-78); BILIRUBIN,DIRECT 0.1 MG/DL (0.0-0.2); BILIRUBIN,TOTAL 0.5 MG/DL (0.2-1.0); BLOOD UREA NITROGEN 23 MG/DL (7-18); C REACTIVE PROTEIN QUANTITATIV 3.25 MG/DL (0.00-0.30); CALCIUM LEVEL 9.3 MG/DL (8.8-10.2); CARBON DIOXIDE LEVEL 31 MEQ/L (21-32); CHLORIDE LEVEL 103 MEQ/L (98-107); CREATININE FOR GFR 0.84 MG/DL (0.70-1.30); GLOMERULAR FILTRATION RATE > 60.0 (>42); GLUCOSE, FASTING 121 MG/DL (70-100); POTASSIUM SERUM 3.8 MEQ/L (3.5-5.1); SODIUM LEVEL 139 MEQ/L (136-145); TOTAL PROTEIN 7.3 GM/DL (6.4-8.2)
[2020-09-15 16:39] LABS: INR 1.07; PARTIAL THROMBOPLASTIN TIME 28.1 SECONDS (24.2-38.5); PROTHROMBIN TIME 14.1 SECONDS (12.5-14.3)
[2020-09-15] MEDS ORDERED: NS 1,000 ML IV ONE (16:45)
[2020-09-15] MEDS ORDERED: ISOVUE-370 76% 100ML VIAL As Ordered ONE (16:57)
[2020-09-15] MEDS ORDERED: MORPHINE 4 MG/ML 1ML VIAL/SYRINGE (J2270) IV PRN (18:00)
--- NOTE | 2020-09-15 18:00 | HPEPDOC ---
[facility] Medical History & Physical Date of Admission Sep 15, 2020 Date of Service: Sep 15, 2020 Attending Physician: Gay Renee MD History and Physical CHIEF COMPLAINT: abdominal pain HISTORY OF PRESENT ILLNESS: Patient is a 79 y/o M with complicated PMH of T3-T6 compression fractures, chronic pain, radiation esophagitis, dysphagia, multiple G tube leaks with multiple exchanges of tubes in the past several months who presented to [facility] ED with chief complaint of recent abdominal pain. The patient states the pain was right lower quadrant and was also complaining of severe pain around the entrance of the G-tube in the left lower quadrant. As been present for 56 days and worsening. He is also noted increased leaking around the entrance of the G-tube with his tube feedings. Patient had a recent admission in August 2020 for leaking G-tube. There were multiple exchanges of the G-tube during her hospital stay and a GJ tube was unable to be placed by interventional radiology. Dr. Bland (general surgery) has been following the patient and his well versed in his history. There was talk of doing a GJ tube placement via general surgery that hospitalization; however, the G-tube was functioning without any issues and the patient was later discharged home to follow-up as outpatient for tube replacement. The patient admits to increased weakness but denies nausea, vomiting, fevers, chills, diarrhea. In the emergency room, the patient describes abdominal pain as 8 out of 10, con stant. He received 7 mg of IV morphine. Abdominal x-ray showed a PEG tube in proper position. CT abdomen and pelvis was pending. On exam the skin around the entrance of the G-tube was extremely reddened and tender, similar to what it looked like on prior admission; however, worsened. The patient was admitted for further workup of abdominal pain, leaking G-tube. 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 Bradycardia with a pacemaker. BPH GERD COPD Dysphagia PAST SURGICAL HISTORY: Left sided chest tube/pleurX catheter in 06/2019 for recurrent pleural effusion Dual chamber Pacemaker placed at [facility] G-tube insertion s/p dysphagia in setting of radiation induced throat injury (12/2018) G tube replacement in 08/2020 Colectomy with colostomy, colostomy take down and reanastomosis. AAA repair SOCIAL HISTORY: Lives at home with his son who he is dependent on, previous 2PPD smoker, quit 5 years ago. Has not drank in the last 5 years since head/neck cancer diagnosis. No illicit drugs. FAMILY HISTORY: Mother w/ brain aneurysm Brother with lung cancer PHYSICAL EXAMINATION: VITAL SIGNS: See below GENERAL: Cachectic, resting in bed . AAOx 3 HEENT: NC, AT, EOMI, no scleral icterus, moist mucous membranes NECK: No cervical or supraclavicular lymphadenopathy. No JVD. CARDIOVASCULAR: RRR, normal S1 and S2. No murmurs, gallops, rubs. LUNGS: CTAB, no W/R/R ABDOMEN: Soft, non-tender, non-distended, bowel sounds present. No hepatosplenomegaly. No masses or eccymosis. No CVA tenderness. G tube in place in left abdominal wall . EXTREMITIES: No swelling or edema SKIN: Multiple raised, stuck on brown-yellow plaques along anterior chest. Surrounding area of feeding tube is very erythematous, worsened from last admission, tender. NEUROLOGICAL: No focal or sensory deficits. CN II-XII grossly intact. LABORATORY DATA: See below. MICROBIOLOGY: BCx x 2 sets: pending IMAGING: ABdXR: peg tube in good position CT abd/pelvis: pending ASSESSMENT: Patient is a 79 year old male with a history of soft palate neck can cer and not fully treated lung cancer admitted for severe abdominal pain, leaking G tube. PLAN: Abdominal pain r/o intraabdominal cause (i.e. abscess, etc vs. pain from PEG tube ) -WBC wnl, lactic acid wnl. S/p 7 mg morphine in ER -CT abd/pelvis with contrast : pending -ABXR: above -For now NPO except meds while waiting results of CT abd/pelvis. -Dr. Bland (general surgery consulted) to review scans, appreciate input Leaking G-tube -Replaced on 08/21/20 ;however, continues to leak despite modifications -GJ conversion was not able to be done, discussed with both Dr. Bland and Dr. Hancock on last admission -when patient was discharged, plan was likely to be needing to replace as o/p -NPO except meds through tube -Erythema and redness around feeding tube present and worsened - on keflex PO as o/p, will continue -Per surgery, likely plan for GJ conversion later this week, f/u official consult T3-T6 compression fractures with chronic back pain -Ortho had seen last admission, recommend WBAT and to f/u after discharge with spine surgeon, no emergent need -Currently on morphine IV. -Plan is hopes of d/c home with family providing 27/02 -C/w home medication, IV morphine PRN -PT/OT while here ELLIOT, chronic -H/H stable -C/w iron supplementation -CBC daily Thrombocytopenia, chronic -Since 2018 -Watch while on enoxaparin, stop if worsens -Monitor CBC daily Deconditioning, acute on chronic 09/08 to compression fractures above -Chronic illness -PT/OT -Nutritional optimization LLL stage IIIB non small cell lung cancer - Previously on chemo but no treatment since 2018 - Patient is no longer interested in treatment and stop seeking treatment about a year ago. - Guaifenesin for handling secretions Hypertensive heart disease -Stable Bradycardia with a pacemaker. -Stable BPH - flomax Anxiety -C/w xanax, hydroxyzine GERD - famotidine # COPD -Stable -Continue home albuterol DVT px -Enoxaparin DISPOSITION: Surgery consulted to evaluate. Plan is home when medically improved. Vital Signs Vital Signs Date Time Temp Pulse Resp B/P (MAP) Pulse Ox O2 Delivery O2 Flow Rate FiO2 09/15/20 17:15 92 130/64 (86) 97 Room Air 09/15/20 17:12 16 09/15/20 14:05 97.9 Laboratory Data Labs 24H Laboratory Tests 2 09/15/20 15:52: Immature Granulocyte % (Auto) 0.9, Neutrophils (%) (Auto) 86.7H, Lymphocytes (%) (Auto) 7.1L, Monocytes (%) (Auto) 4.5, Eosinophils (%) (Auto) 0.2, Basophils (%) (Auto) 0.6, Neutrophils # (Auto) 4.6, Lymphocytes # (Auto) 0.4L, Monocytes # (Auto) 0.2, Eosinophils # (Auto) 0.0, Basophils # (Auto) 0.0, Nucleated Red Blood Cells % (auto) 0.0, Prothrombin Time 14.1H, Prothromb Time International Ratio 1.07, Activated Partial Thromboplast Time 28.1, Anion Gap 5L, Glomerular Filtration Rate > 60.0, Lactic Acid Level 1.7, Calcium Level 9.3, Total Bilirubin 0.5, Direct Bilirubin 0.1, Aspartate Amino Transf (AST/SGOT) 13, Alanine Aminotransferase (ALT/SGPT) 17, Alkaline Phosphatase 110, C-Reactive Protein, Quantitative 3.25H, Total Protein 7.3, Albumin 3.0L, Albumin/Globulin Ratio 0.7 CBC/BMP Laboratory Tests 09/15/20 15:52 Microbiology Microbiology 09/15/20 Blood Culture, Received Pending 09/15/20 Blood Culture, Received Pending Home Medications Scheduled Acyclovir (Acyclovir) 400 Mg Tablet, 400 MG PEG BID Alprazolam (Alprazolam) 0.5 Mg Tablet, 0.5 MG PEG BID Cephalexin (Cephalexin) 500 Mg Capsule, 500 MG PEG BID STARTED 09/03/20 FOR 10 DAYS, HAS A COUPLE DAYS LEFT PER SON Digoxin (Digoxin) 125 Mcg Tablet, 125 MCG PEG Q2D Doxazosin Mesylate (Doxazosin Mesylate) 1 Mg Tablet, 1 MG PEG QHS Lactose-Reduced Food/Fiber (Jevity 1.2 Lazaro Liquid) 237 Ml Liquid, 1 LIQ PEG QID TAKES 3 TO 4 TIMES DAILY DEPENDING ON HOW STOMACH FEELS Metoclopramide HCl (Metoclopramide HCl) 10 Mg/10 Ml Solution, 10 MG PEG QID Oxycodone HCl/Acetaminophen (Percocet 5-325 mg Tablet) 1 Each Tablet, 1 TAB PO QID Prednisone (Prednisone) 5 Mg Tablet, 5 MG PEG DAILY Tamsulosin HCl (Flomax) 0.4 Mg Capsule, 0.4 MG PEG DAILY Scheduled PRN Albuterol Sulfate (Albuterol Sulfate Hfa) 8.5 Gm Hfa.aer.ad, 2 PUFF INH QID PRN for WHEEZING Famotidine (Pepcid) 20 Mg Tablet, 20 MG PEG DAILY PRN for ACID REFLUX Guaifenesin (Guaifenesin) 100 Mg/5 Ml Liquid, 25 ML PEG BID PRN for CONGESTION Hydroxyzine Pamoate (Hydroxyzine Pamoate) 25 Mg Capsule, 25 MG PEG QID PRN for ITCHING Magnesium Hydroxide (Milk of Magnesia) 400 Mg/5 Ml Oral.susp, 15 ML PEG DAILY PRN for CONSTIPATION Allergies Coded Allergies: No Known Allergies (Unverified , 06/03/20) A-FIB/CHADSVASC A-FIB History Current/History of A-Fib/PAF?: No Current PO Anticoag Therapy: No Age/Risk Factor Scoring CHADSVASC: CHADSVASC Response (Comments) Value Age Risk Factor Age >/= 75 years old 2 Gender Risk Factor Male 0 Hx of CHF No 0 Hx of HTN Yes 1 Hx of Stroke/TIA/or VTE No 0 Hx of Diabetes No 0 Hx of Vascular Disease No 0 Total 3 Treatment Treatment ordered: Other Other anticoagulant ordered: Gay Mi MD Sep 15, 2020 18:00
[2020-09-15] MEDS ORDERED: METO10ELUD PEG (18:05)
[2020-09-15] MEDS ORDERED: PERC5TAB12 PO (18:05)
--- NOTE | 2020-09-15 18:07 | REP ---
INDICATION: feeding tube placement. COMPARISON: None. TECHNIQUE: AP view abdomen performed. FINDINGS: Contrast was administered through the PEG tube which appears to be in good position within the stomach. The fundus of the stomach is opacified with contrast. Aorto bi-iliac graft is noted. Two pacemaker leads are noted. Abnormal pleural and parenchymal opacity is noted inferiorly in the right hemithorax. IMPRESSION: Peg tube in good position. <Electronically signed by Fitz Gregory > 09/15/20 [id number]
--- NOTE | 2020-09-15 18:34 | REPVR ---
PROCEDURE INFORMATION: Exam: CT Abdomen With Contrast Exam date and time: 09/15/2020 5:38 PM Age: 79 years old Clinical indication: Abdominal pain; Generalized TECHNIQUE: Imaging protocol: Computed tomography images of the abdomen with intravenous contrast. Radiation optimization: All CT scans at this facility use at least one of these dose optimization techniques: automated exposure control; mA and/or kV adjustment per patient size (includes targeted exams where dose is matched to clinical indication); or iterative reconstruction. Contrast material: ISOVUE 370; Contrast volume: 100 ml; Contrast route: INTRAVENOUS (IV); COMPARISON: PT PET/CT Skull/mid thigh 08/28/2018 2:18 PM FINDINGS: Tubes, catheters and devices: There is a gastrostomy tube within the stomach in good position. Lungs: There is a large loculation of fluid at the right lung base which is mildly increased since 08/17/2020. There are numerous bulla identified at the right lung base. Heart: Heart is top-normal in size and there is no pericardial effusion. Liver: There is a small cyst of the left lobe of the liver. The liver otherwise demonstrates uniform enhancement. Gallbladder and bile ducts: Normal common bile duct. Normal gallbladder. Pancreas: Normal size pancreas. Normal size pancreatic duct. Spleen: Normal spleen. Adrenals: Normal adrenal glands. Kidneys and ureters: There is enhancement of both kidneys. There is a small cyst of the right and left kidney. There is no evidence of hydronephrosis. Stomach and bowel: There is some stool within the colon. There is no evidence of bowel obstruction. There are few air-fluid levels within the small bowel. Intraperitoneal space: Unremarkable. No free air. No significant fluid collection. Lymph nodes: Unremarkable. No enlarged lymph nodes. Vasculature: There is very severe atherosclerotic plaque formation at the origin of the SMA. Bones/joints: Unremarkable. No acute fracture. No dislocation. Soft tissues: Unremarkable. IMPRESSION: 1. Large loculation of the fluid at the right lung base has mildly increased. 2. Graft within the abdominal aortic aneurysm appears intact and opacifies. There is severe atherosclerotic plaque of the SMA Electronically signed by: Alessandro Bermudez On 09/15/2020 18:34:24 PM
[2020-09-15] MEDS ORDERED: MOM 30ML SUSPENSION UDC PEG PRN (18:45)
[2020-09-15] MEDS ORDERED: FAMOTIDINE 20 MG TAB PEG PRN (18:45)
[2020-09-15] MEDS ORDERED: hydrOXYzine 25 MG TAB PEG PRN (18:45)
[2020-09-15] MEDS ORDERED: ALBUTEROL 90 MCG/ACT 8GM HFA INHALER INH PRN (18:45)
[2020-09-15] MEDS ORDERED: guaiFENesin SYRUP 200 MG/10 ML UDC PEG PRN (18:45)
[2020-09-15 19:01] LABS: RSV AMPLIFICATION NEGATIVE (NEGATIVE)
[2020-09-15 20:30] VITALS: BP 122/79
[2020-09-15] MEDS: BOUDREAUX'S BUTT PASTE TOP SCH (21:29)
[2020-09-15] MEDS: METOCLOPRAMIDE HCL LIQUID 10 MG/10 ML UDC PEG SCH (21:29)
[2020-09-15] MEDS: ALPRAZolam 0.5 MG TAB PEG SCH (21:29)
[2020-09-15] MEDS: CEPHALEXIN 500 MG CAP PEG SCH (21:31)
[2020-09-15] MEDS: DOXAZOSIN MESYLATE 1 MG TAB PEG SCH (21:31)
[2020-09-15] MEDS: ACYCLOVIR 200 MG CAPSULE PEG SCH (21:31)
[2020-09-15] MEDS: PERCOCET 5MG/325MG TAB PO SCH (21:33)
[2020-09-16] VITALS (7 sets, daily range): BP systolic 99–115; BP diastolic 55–66
[2020-09-16] MEDS: MORPHINE 2 MG/ML 1ML VIAL (J2270) IV PRN ×2 (00:50→06:53)
[2020-09-16 06:03] LABS: HEMATOCRIT 31.6 % (42.0-52.0); HEMOGLOBIN 9.2 g/dl (13.5-17.5); MEAN CORPUSCULAR HEMOGLOBIN 28.5 pg (27.0-33.0); MEAN CORPUSCULAR HGB CONC 29.1 g/dl (32.0-36.5); MEAN CORPUSCULAR VOLUME 97.8 fl (80.0-96.0); PLATELET COUNT, AUTOMATED 110 10^3/uL (150-450); RED BLOOD COUNT 3.23 10^6/uL (4.30-6.10); WHITE BLOOD COUNT 3.2 10^3/uL (4.0-10.0)
[2020-09-16 06:22] LABS: ALBUMIN 2.4 GM/DL (3.2-5.2); ALT/SGPT 13 U/L (12-78); BILIRUBIN,TOTAL 0.3 MG/DL (0.2-1.0); BLOOD UREA NITROGEN 20 MG/DL (7-18); CALCIUM LEVEL 8.3 MG/DL (8.8-10.2); CARBON DIOXIDE LEVEL 30 MEQ/L (21-32); CHLORIDE LEVEL 105 MEQ/L (98-107); CREATININE FOR GFR 0.69 MG/DL (0.70-1.30); GLOMERULAR FILTRATION RATE > 60.0 (>42); GLUCOSE, FASTING 126 MG/DL (70-100); POTASSIUM SERUM 3.8 MEQ/L (3.5-5.1); SODIUM LEVEL 140 MEQ/L (136-145); TOTAL PROTEIN 6.3 GM/DL (6.4-8.2)
[2020-09-16] MEDS: BOUDREAUX'S BUTT PASTE TOP SCH ×2 (08:26→21:45)
[2020-09-16] MEDS: METOCLOPRAMIDE HCL LIQUID 10 MG/10 ML UDC PEG SCH ×4 (08:26→21:16)
[2020-09-16] MEDS: ALPRAZolam 0.5 MG TAB PEG SCH ×2 (08:26→21:17)
[2020-09-16] MEDS: CEPHALEXIN 500 MG CAP PEG SCH ×2 (08:27→21:17)
[2020-09-16] MEDS: predniSONE 5 MG TAB PEG SCH (08:27)
[2020-09-16] MEDS: DIGOXIN 0.125 MG TAB PEG SCH (08:27)
[2020-09-16] MEDS: ACYCLOVIR 200 MG CAPSULE PEG SCH ×2 (08:27→21:16)
[2020-09-16] MEDS: PERCOCET 5MG/325MG TAB PO SCH ×4 (08:28→21:18)
[2020-09-16] MEDS: TAMSULOSIN 0.4 MG CAP PO SCH (08:51)
[2020-09-16] MEDS ORDERED: FLUBLOK(EGG FREE)(QUAD)INFLUENZA VACC 0.5ML SYRINGE 18YRS & OLDER IM ONE (09:00)
[2020-09-16] MEDS ORDERED: ENOXAPARIN 40MG/0.4ML SYRINGE (J1650 PER 10MG) SC SCH (09:00)
--- NOTE | 2020-09-16 09:26 | CR ---
CONSULTATION DATE: 09/15/2020 REASON FOR CONSULTATION: Difficulty with tube feedings. HISTORY OF PRESENT ILLNESS: Briefly, the patient is a 79-year-old male who was recently discharged for tube feeding abnormalities and problems, complaining of right chest wall pain, but also pain across the abdomen. Most of his pain is quite severe in the right lower chest, radiating to his shoulder blade, into the right subcostal area. He underwent evaluation with some lab work which revealed a normal white count. However he has imaging which shows fluid collection enlarging in the right lower lobe area with some evidence of loculation and significant consolidation noticed as well. The patient states that he has had pain like this in the past and after drainage of his chest had improvement of his pain. However he was complaining of discomfort and pain along his abdomen with some crampy pain across his abdomen. However his chest pain is the most severe. Otherwise his CAT scan really revealed no significant abdominal abnormalities per se. He has had some tenderness around his G-tube site and he has had some excoriation of this which was quite severe in nature. However it is actually improved since his discharge and it continues to improve. He states he has some minimal leakage around the site but not very much compared to what it was previously. He does not complain of reflux or nausea, vomiting. PAST MEDICAL HISTORY: The patient's past medical history is significant for: 1. History of thoracic spine compression fracture. 2. History of G-tube that was replaced. 3. History of squamous cell cancer of the soft palate, status post radiation and resections. 4. History of radiation esophagitis. 5. History of left lower lobe non small cancer, on chemotherapy previously but nothing since 2019. 6. History of myocardial infarction. 7. History of hypertensive heart disease. 8. Bradycardia with pacemaker. 9. Benign prostatic hypertrophy. 10. Gastroesophageal reflux disease. 11. Chronic obstructive pulmonary disease. 12. Dysphagia. PAST SURGICAL HISTORY: The patient's past surgical history is significant for: 1. Previous chest tubes. 2. Pacemakers. 3. G-tubes. 4. G-tubes replacement. 5. Colectomy with colostomy and colostomy takedown. 6. Abdominal aortic aneurysm repair. PHYSICAL EXAMINATION: GENERAL APPEARANCE: A frail male who looks stated age, no significant shortness of breath at this time. HEENT: Unremarkable other than appearing to be somewhat cachectic in nature. LUNGS: Diminished bilaterally right side significantly. HEART: Regular with multiple irregular beats. ABDOMEN: Soft, nondistended, nontender, no guarding, no rebound, no peritoneal signs are appreciated. His G-tube is in place. He does have some erythema around his G-tube site, but it is actually healing compared to what it was previously and there is some dry scaly, skin present but overall I am seeing some significant improvements. IMPRESSION AND PLAN: The patient has chest pain, I think, and this is mostly right sided chest pain that he is complaining of. It is consistent with the pain that he has from this fluid collection within his chest and his atelectasis and consolidation and loculated abnormality. And I anticipate this may need to be addressed by Cardiothoracic Surgery or Pulmonary. From an abdominal standpoint, I will restart his tube feeds, and we will check residuals. Initially when I had gotten the consult, there was some question about leaking around the G-tube, but right now I am not seeing a significant amount and the patient states there has not been a lot. Thus we will see how he does over the ensuing 24-48 hours. I do feel with his pulmonary status though, I would not recommend sedation for him as of yet, and replacement of the gastrostomy tube into a gastrojejunostomy tube.
[2020-09-16] MEDS: DOCUSATE SOD LIQ 100MG/10ML UDC GT SCH ×2 (09:54→21:16)
--- NOTE | 2020-09-16 11:29 | IPNPDOC ---
Text Note Date of Service The patient was seen on 09/16/20. NOTE General Surgery Dr Bland. The patient is a 79-year-old male with dysphagia and G-tube placement, with history of tube feeding abnormalities and complaints of chronic pain. General surgery was consulted to evaluate leakage from G-tube. Nursing does not report leakage from the G-tube. The patient did complain of pain this morning around 5 AM, tube feeds were temporarily held until 7 AM and then restarted. Currently he is receiving tube feeding and there are no signs of any leakage around the G-tube. The patient has continued to complain of burning, stabbing, constant pain. At the time of my exam this morning he had received IV morphine 2 mg at 06 53 AM and reported some improvement. He did however take 1 tab of Percocet at 8:28 AM reporting 10/10 pain in the left abdominal area. It appears most of the time he is taking pain medicine he is reporting left anterior abdominal discomfort but had reported to Dr. Bland right chest and shoulder area discomfort. Afebrile Heart rate 99, respiratory rate 18, blood pressure 100/61, 95% room air. The patient appears frail, cachectic. NAD at this time of my exam. Lungs with decreased breath sounds right greater than left. S1 and S2 regular. Abdomen. Soft, nondistended, no tenderness currently around the G-tube and no leakage currently. Dressing is intact. The patient does have some skin erythema around the G-tube with some skin scaling, zinc oxide cream applied, dressing in place, tube feeding in process. Extremities are well perfused with no edema. 09/15/20 21:00 35 mL residual 09/16/20 1 AM 100ml residual. At 5 AM when the patient had pain and his tube feeding was held, I do not see residual documented. A/P Dysphagia with G-tube. No leakage observed at this time. Plan is to continue with tube feeding as currently ordered, Continue to monitor for residual every 4 hours. Continue to apply Zinc oxide cream for skin irritation around G-tube site, Dr. Bland has also examined and feels this is improving compared with when it was last seen. Continue to monitor. VS,Fishbone, I+O VS, Fishbone, I+O Laboratory Tests 09/15/20 15:52 09/16/20 05:37 Vital Signs Date Time Temp Pulse Resp B/P (MAP) Pulse Ox O2 Delivery O2 Flow Rate FiO2 09/16/20 09:00 97.4 89 18 100/61 (74) 95 Room Air I&O- Last 24 Hours up to 6 AM 09/16/20 06:00 Intake Total 1000 ml Output Total 300 ml Balance 700 ml Ragini Johnson Sep 16, 2020 10:59
[2020-09-16 13:38] LABS: LDH LACTATE DEHYDROGENASE 115 U/L (87-241)
[2020-09-16] MEDS ORDERED: flumazeniL 0.5 MG/5 ML VIAL As Ordered ONE (13:54)
[2020-09-16] MEDS ORDERED: MIDAZOLAM INJ 2MG/2ML VIAL (J2250 PER 1MG) As Ordered ONE (13:54)
[2020-09-16] MEDS ORDERED: LIDOCAINE 1% MDV 20ML VIAL As Ordered ONE ×2 (13:55→15:49)
[2020-09-16] MEDS ORDERED: SODIUM BICARBONATE 8.4% INJ 50MEQ 50 ML VIAL As Ordered ONE (15:48)
--- NOTE | 2020-09-16 16:54 | REP ---
INDICATION: POST RIGHT THORA, 2 VIEW. Patient is status post right thoracentesis with pigtail catheter tube placement. COMPARISON: Comparison chest x-ray [address] abdomen images 15 September 2020.. TECHNIQUE: PA and lateral views. FINDINGS: A right-sided percutaneously placed pigtail catheter is seen in the lower pleural space posteriorly on the right. There is a multiloculated right-sided hydropneumothorax predominantly posteriorly collected. This is similar in volume to the appearance of the June 2019 prior study. There is no evidence of pneumothorax at the apex. The left lung remains clear. A bipolar pacemaker is seen in the right heart. Aortic stent graft is visible at the bottom of the imaging field of view. IMPRESSION: A right pigtail drainage catheter is seen in place posteriorly. Loculated hydropneumothorax again noted on the right. <Electronically signed by Ankit Lynn > 09/16/20 [id number]
--- NOTE | 2020-09-16 16:58 | REP ---
INDICATION: pigtail cath to pleuv 20 cm, see spec orders The patient has a history of right pleural effusion COMPARISON: None. TECHNIQUE: The procedure was performed by Kathrin Mercedes [facility], under the direct supervision of Dr. Lynn The risks and benefits of the procedure were explained to the patient and an informed consent was obtained both verbally and written. Directly prior to the start of the procedure a formal time-out was completed in the procedure room. Pleural fluid in right lung zone was localized using ultrasound guidance. The skin was prepped and draped in a sterile fashion. Three ML of buffered lidocaine was used as a local anesthetic. Using ultrasound guidance a 10-Thai multi side-hole pigtail catheter was inserted using trocar technique. FINDINGS: One hundred mL of yellow colored fluid was withdrawn and sent to the laboratory for further analysis. The pigtail catheter was sutured in place, and a sterile dressing was applied. The catheter was then hooked up to a Plura-vac system. The patient tolerated the procedure well and there were no immediate complications.. IMPRESSION: Ultrasound-guided 10 Thai pigtail catheter placement into the right lung zone. <Electronically signed by Kathrin Mercedes > 09/16/20 1644 <Electronically signed by Ankit Lynn > 09/16/20 [id number]
[2020-09-16] MEDS ORDERED: SLF 3 ML SYR IV PRN (17:00)
--- NOTE | 2020-09-16 17:02 | IPNPDOC ---
Date Seen The patient was seen on 09/16/20. Progress Note SUBJECTIVE: Holding off on G tube exchange or GJ tube placement per surgery, c/w continuous feedings. CT surgery to place pigtail catheter for right loculated effusion. Denies chest pain, shortness of breath, fevers, chills OBJECTIVE: PHYSICAL EXAMINATION: VITAL SIGNS: See below GENERAL: Cachectic, resting in bed . AAOx 3 HEENT: NC, AT, EOMI, no scleral icterus, moist mucous membranes NECK: No cervical or supraclavicular lymphadenopathy. No JVD. CARDIOVASCULAR: RRR, normal S1 and S2. No murmurs, gallops, rubs. LUNGS:decreased BS up to mid-lung on right lung, CTAB on right lung, no W/R/R ABDOMEN: Soft, non-tender, non-distended, bowel sounds present. No hepatosplenomegaly. No masses or eccymosis. No CVA tenderness. G tube in place in left abdominal wall . EXTREMITIES: No swelling or edema SKIN: Multiple raised, stuck on brown-yellow plaques along anterior chest. Surrounding area of feeding tube is very erythematous, tender NEUROLOGICAL: No focal or sensory deficits. CN II-XII grossly intact. LABORATORY DATA: See below. MICROBIOLOGY: BCx x 2 sets: pending IMAGING: ABdXR: peg tube in good position CT abd/pelvis: 1. Large loculation of the fluid at the right lung base has mildly increased. 2. Graft within the abdominal aortic aneurysm appears intact and opacifies. There is severe atherosclerotic plaque of the SMA ASSESSMENT: Patient is a 79 year old male with a history of soft palate neck cancer and not fully treated lung cancer admitted for severe abdominal pain, leaking G tube. 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 Howell -Previously on chemo but no treatment since 2019 -Patient is no longer interested in treatment and stop seeking treatment about a year ago. -Guaifenesin for handling secretions Abdominal pain r/o intraabdominal cause vs. referred pain from chest -WBC wnl, lactic acid wnl. -CT abd/pelvis with contrast above -ABXR: above -F/u pain to see if relief provided with drainage of loculated area of right lung, this could be cause -Also, watching PEG tube and feedings closely tos ee if associated with incr pain -Dr. Bland (general surgery consulted) to review scans, appreciate input Leaking G-tube -Replaced on 08/21/20 ;however, continues to leak despite modifications -GJ conversion was not able to be done, discussed with both Dr. Bland and Dr. Hancock on last admission -when patient was discharged, plan was likely to be needing to replace as o/p -Has been tolerating feedings well here per surgery, no plans on changing tube to GJ -F/u surgery recommendations. T3-T6 compression fractures with chronic back pain -Ortho had seen last admission, recommend WBAT and to f/u after discharge with spine surgeon, no emergent need -Currently on morphine IV. -Plan is hopes of d/c home with family providing 27/02 -C/w home medication, IV morphine PRN -PT/OT while here ELLIOT, chronic -H/H stable -C/w iron supplementation -CBC daily Thrombocytopenia, chronic -Since 2018 -Watch while on enoxaparin, stop if worsens -Monitor CBC daily Deconditioning, acute on chronic / to compression fractures above -Chronic illness -PT/OT -Nutritional optimization Hypertensive heart disease -Stable Bradycardia with a pacemaker. -Stable BPH - flomax Anxiety -C/w xanax, hydroxyzine GERD - famotidine # COPD -Stable -Continue home albuterol DVT px -Enoxaparin DISPOSITION: Surgery and CT surgery consulted to follow. Plan is home when medically improved. VS, I&O, 24H, Fishbone Vital Signs/I&O Vital Signs Date Time Temp Pulse Resp B/P (MAP) Pulse Ox O2 Delivery O2 Flow Rate FiO2 09/16/20 15:35 98.4 91 20 97 Room Air 09/16/20 14:22 115/55 (75) I&O- Last 24 Hours up to 6 AM 09/16/20 06:00 Intake Total 1000 ml Output Total 300 ml Balance 700 ml Laboratory Data 24H LABS Laboratory Tests 2 09/15/20 18:13: Coronavirus (COVID-19)(PCR) NEGATIVE, Influenza Type A (RT-PCR) NEGATIVE, Influenza Type B (RT-PCR) NEGATIVE, Respiratory Syncytial Virus (PCR) NEGATIVE 09/16/20 05:37: Nucleated Red Blood Cells % (auto) 0.0, Anion Gap 5L, Glomerular Filtration Rate > 60.0, Calcium Level 8.3L, Total Bilirubin 0.3, Aspartate Amino Transf (AST/SGOT) 7, Alanine Aminotransferase (ALT/SGPT) 13, Alkaline Phosphatase 94, Lactate Dehydrogenase 115, Total Protein 6.3L, Albumin 2.4L, Albumin/Globulin Ratio 0.6 CBC/BMP Laboratory Tests 09/16/20 05:37 Microbiology Microbiology 09/15/20 Gram Stain - Final, Resulted 09/15/20 Wound Culture - Preliminary, Resulted Yeast Like Organism 09/15/20 Blood Culture - Preliminary, Resulted No growth after 24 hours . All specim... 09/15/20 Blood Culture - Preliminary, Resulted No growth after 24 hours . All specim... Current Medications Current Medications Medications (Trade) Dose Ordered Sig/Mallorie Route PRN Reason Start Time Stop Time Status Last Admin Dose Admin Acyclovir (Zovirax) 400 mg BID PEG 09/15/20 21:00 09/16/20 08:27 Albuterol Sulfate (Proventil, Ventolin Hfa) 2 puff QID PRN INH WHEEZING 09/15/20 18:45 Alprazolam (Xanax) 0.5 mg BID PEG 09/15/20 21:00 09/16/20 08:26 Cephalexin Monohydrate (Keflex) 500 mg BID PEG 09/15/20 21:00 09/16/20 08:27 Diatrizoate Meglum/ Diatrizoate Sod (Gastrografin) 10 ml Q30M PO 09/15/20 16:15 09/15/20 16:46 DC 09/15/20 16:15 Digoxin (Lanoxin) 0.125 mg Q2D PEG 09/16/20 09:00 09/16/20 08:27 Docusate Sodium (Colace Liquid) 100 mg BID GT 09/16/20 09:00 09/16/20 09:54 Doxazosin Mesylate (Cardura) 1 mg QHS PEG 09/15/20 21:00 09/15/20 21:31 Enoxaparin Sodium (Lovenox) 40 mg DAILY SC 09/16/20 09:00 09/16/20 13:19 DC Famotidine (Pepcid) 20 mg DAILYPRN PRN PEG ACID REFLUX 09/15/20 18:45 Guaifenesin (Robitussin) 25 ml BIDP PRN PEG CONGESTION 09/15/20 18:45 Home Med (Med Rec Complete!) ASDIRECTED XX 09/15/20 18:15 09/15/20 18:10 DC Hydroxyzine HCl (Atarax) 25 mg QIDP PRN PEG ITCHING 09/15/20 18:45 Magnesium Hydroxide (Milk Of Magnesia) 15 ml DAILY PRN PEG CONSTIPATION 09/15/20 18:45 Metoclopramide HCl (Reglan Liquid) 10 mg QID PEG 09/15/20 21:00 09/16/20 13:14 Morphine Sulfate (Morphine Sulfate Inj) 2 mg Q6HP PRN IV SEVERE PAIN (PS 8-10) 09/15/20 18:45 09/16/20 06:53 Morphine Sulfate (Morphine Sulfate Inj) 3 mg Q3HP PRN IV SEVERE PAIN (PS 8-10) 09/15/20 18:00 09/15/20 18:47 DC Oxycodone/ Acetaminophen (Percocet 5mg/ 325mg Tablet) 1 tab QID PO 09/15/20 21:00 09/16/20 13:14 Prednisone (Deltasone) 5 mg DAILY PEG 09/16/20 09:00 09/16/20 08:27 Tamsulosin HCl (Flomax) 0.4 mg DAILY PO 09/16/20 09:00 Zinc Oxide (Boudreauxs Butt Paste) 1 dose BID TOP 09/15/20 21:00 09/16/20 08:26 Allergies Coded Allergies: No Known Allergies (Unverified , 06/03/20) Gay Renee MD Sep 16, 2020 17:02
[2020-09-16 17:24] LABS: PH BODY FLUID 7.528 UNITS (NOT ESTABLISHED); SOURCE, BODY FLUID pH PLEURAL
[2020-09-16 17:28] LABS: APPEARANCE, BODY FLUID CLEAR (CLEAR); PLEURAL FL COLOR YELLOW (COLORLESS); SOURCE, BODY FLUID PLEURAL
[2020-09-16 18:23] LABS: AMYLASE, BODY FLUID 22 U/L (NOT ESTABLISHED); CHOLESTEROL, BODY FLUID < 50 MG/DL (NOT ESTABLISHED); LDH, BODY FLUID 128 U/L (NOT ESTABLISHED); SOURCE, BODY FLUID AMYLASE PLEURAL; SOURCE, BODY FLUID CHOL PLEURAL; SOURCE, BODY FLUID GLUCOSE PLEURAL; SOURCE, BODY FLUID LDH PLEURAL; SOURCE, BODY FLUID TRIG PLEURAL; TRIGLYCERIDE, BODY FLUID 19 MG/DL (NOT ESTABLISHED)
[2020-09-16 18:25] LABS: SOURCE, BODY FLUID ALBUMIN PLEURAL; SOURCE, BODY FLUID TOT PROTEIN PLEURAL; TOTAL PROTEIN, BODY FLUID 3.9 G/DL (NOT ESTABLISHED)
[2020-09-16] MEDS: KETOROLAC 30 MG/ML 1ML VIAL IV SCH (20:52)
[2020-09-16] MEDS: SLF 3 ML SYR IV SCH (20:53)
[2020-09-16] MEDS: DOXAZOSIN MESYLATE 1 MG TAB PEG SCH (21:17)
[2020-09-17] VITALS (8 sets, daily range): BP systolic 90–130; BP diastolic 55–65
[2020-09-17] MEDS: MORPHINE 2 MG/ML 1ML VIAL (J2270) IV PRN ×2 (00:39→05:36)
[2020-09-17] MEDS: KETOROLAC 30 MG/ML 1ML VIAL IV SCH ×4 (02:36→21:29)
[2020-09-17] MEDS: SLF 3 ML SYR IV SCH ×3 (05:40→21:33)
[2020-09-17] MEDS ORDERED: NS 500 ML IV ONE (05:45)
[2020-09-17 06:06] LABS: HEMATOCRIT 31.3 % (42.0-52.0); HEMOGLOBIN 9.1 g/dl (13.5-17.5); MEAN CORPUSCULAR HEMOGLOBIN 28.4 pg (27.0-33.0); MEAN CORPUSCULAR HGB CONC 29.1 g/dl (32.0-36.5); MEAN CORPUSCULAR VOLUME 97.8 fl (80.0-96.0); PLATELET COUNT, AUTOMATED 103 10^3/uL (150-450); WHITE BLOOD COUNT 3.7 10^3/uL (4.0-10.0)
[2020-09-17 06:39] LABS: ALBUMIN 2.5 GM/DL (3.2-5.2); ALT/SGPT 14 U/L (12-78); BILIRUBIN,TOTAL 0.4 MG/DL (0.2-1.0); BLOOD UREA NITROGEN 21 MG/DL (7-18); CALCIUM LEVEL 8.6 MG/DL (8.8-10.2); CARBON DIOXIDE LEVEL 30 MEQ/L (21-32); CHLORIDE LEVEL 105 MEQ/L (98-107); CREATININE FOR GFR 0.71 MG/DL (0.70-1.30); GLOMERULAR FILTRATION RATE > 60.0 (>42); GLUCOSE, FASTING 77 MG/DL (70-100); SODIUM LEVEL 142 MEQ/L (136-145); TOTAL PROTEIN 6.2 GM/DL (6.4-8.2)
[2020-09-17] MEDS: ACYCLOVIR 200 MG CAPSULE PEG SCH ×2 (08:28→21:27)
[2020-09-17] MEDS: DOCUSATE SOD LIQ 100MG/10ML UDC GT SCH ×2 (08:28→21:27)
[2020-09-17] MEDS: ALPRAZolam 0.5 MG TAB PEG SCH ×2 (08:28→21:27)
[2020-09-17] MEDS: TAMSULOSIN 0.4 MG CAP PO SCH (08:28)
[2020-09-17] MEDS: predniSONE 5 MG TAB PEG SCH (08:28)
[2020-09-17] MEDS: METOCLOPRAMIDE HCL LIQUID 10 MG/10 ML UDC PEG SCH ×4 (08:28→21:27)
[2020-09-17] MEDS: PERCOCET 5MG/325MG TAB PO SCH ×4 (08:29→21:28)
[2020-09-17] MEDS: CEPHALEXIN 500 MG CAP PEG SCH ×2 (08:29→21:28)
[2020-09-17] MEDS: BOUDREAUX'S BUTT PASTE TOP SCH ×2 (08:30→21:33)
--- NOTE | 2020-09-17 09:16 | REP ---
INDICATION: CT Placement. COMPARISON: Comparison chest x-ray 16 September 2020. TECHNIQUE: Portable upright AP chest radiograph. FINDINGS: The right-sided pigtail drainage catheter remains in place. There is a little less pleural air. The catheter may be kinked at the posterior chest wall. Monitoring electrodes and pacemaker leads are again seen. Left lung remains clear. No new infiltrate. IMPRESSION: Drainage catheter may be kinked at the posterior chest wall. Improved amount of pleural air.. <Electronically signed by Ankit Lynn > 09/17/20 0910
--- NOTE | 2020-09-17 10:12 | CR ---
CONSULTATION DATE: 09/16/2020 REASON FOR CONSULTATION: The patient is seen at the request of Dr. Rashid of the hospitalist service for right-sided chest pain and a pleural effusion. HISTORY OF PRESENT ILLNESS: The patient is a 79-year-old white male who has chronic pain from a leaking G-tube, which has been addressed numerous times. 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 He has radiation esophagitis additionally. He is dependent on his G-tube for enteral feedings as he cannot swallow. He was admitted yesterday with pain at the G-tube insertion site, but also complained of right-sided chest pain in the posterolateral inferior chest going up to his scapula. It is hard to get a complete history from the patient as he is in a rather miserable condition, but it seems as though this is rather new with regard to the chest pain over the last week or so. He denies fever, chills, or sweats. He has a cough, but no sputum production. He does not complain with coughing with eating as he does not eat. Additionally, he has not had nausea or vomiting. PAST MEDICAL HISTORY: 1. The above lung cancer and head and neck cancers along with radiation esophagitis. 2. Myocardial infarction. 3. Hypertension. 4. Bradycardia with a pacemaker. 5. BPH. 6. GERD. 7. COPD. PAST SURGICAL HISTORY: 1. PleurX catheter in 2019. 2. G-tube insertion in 2019. 3. Colectomy with colostomy and takedown with reanastomosis for perforation secondary to diverticulitis. 4. Triple aortic aneurysm repair with minimally invasive techniques. HABITS: Smoked between two and two and a half packs per day until seven years ago when he was diagnosed with his head and neck cancer. Until about seven years ago, he also drank numerous beers per day, but has not drank in the last five years. Denies illicit drugs. 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 He does not think he had asbestos exposure. There is no tuberculosis exposure. OTHER EXPOSURES: Since 2019, he has one dog a yellow lab. No birds or cats. TRAVEL HISTORY: None outside [place] and in fact, none outside [place]. REVIEW OF SYSTEMS: As noted above, denies fevers, chills, or sweats. He has had continued weight loss. Eyes: Without diplopia. Has had cataracts. Without amaurosis fugax. Nose without epistaxis. Mouth: Edentulous secondary to previous radiation treatments for his head and neck cancer. No longer wears dentures. Pulmonary: See HPI. Cardiac: Denies orthopnea or paroxysmal nocturnal dyspnea. He has a pacemaker for bradycardia. GI: See HPI. : Without dysuria or hematuria. He does have a reddened penis, but without pain. No history of renal stones. Endocrine: Without diabetes. Without thyroid disease. Neurologic: Without paresthesias, paralysis, or seizures. HOME MEDICATIONS: 1. Acyclovir 400 mg b.i.d. per PEG tube. 2. Albuterol HFA two puffs q.i.d. p.r.n. wheezing. 3. Alprazolam 0.5 mg b.i.d. 4. Cephalexin 500 mg b.i.d. 5. Digoxin 0.125 mg every other day. 6. Pepcid 20 mg p.r.n. acid reflux. 7. Hydroxyzine 25 mg p.r.n. itching. 8. Milk of magnesia 15 mL p.r.n. constipation. 9. Metoclopramide 10 mg q.i.d. 10. Percocet 5/325 q.i.d. p.r.n. pain. 11. Prednisone 5 mg q. day. 12. Flomax 0.4 mg q. day. PHYSICAL EXAMINATION: GENERAL APPEARANCE: Chronically debilitated and chronically ill white male rather weak. VITAL SIGNS: Temperature 97.7, heart rate 94 with a regular rate and rhythm. Respiratory rate 18 without the use of accessory muscles. He is 96% saturated on room air. Blood pressure 110/56. HEENT: Eyes with pupils equal, round, and reactive to light. Extraocular muscles intact. Sclerae nonicteric. Nose without deformity. Mouth shows the mucous membranes to be pink and moist. Lips and gums without lesions. He is edentulous. NECK: Supple. There is no jugular venous distention. No subcutaneous emphysema. Trachea is midline. There is no lymphadenopathy. LUNGS: Show decreased breath sounds at the right base, although he cannot sit up secondary to pain. Anteriorly I hear no wheezes, rhonchi, or rales. Percussion note is dull laterally in the right base. ABDOMEN: Tender in and around the G-tube site and in fact, there is a diffuse tenderness all over, but without guarding or rigidity. Bowel sounds are positive, but hypoactive. Cannot test for CVA tenderness. GENITOURINARY: His penis is quite reddened. EXTREMITIES: Show no pretibial edema. No calf tenderness. No differential swelling of the upper extremities. SKIN: Warm, dry, and perfused without cyanosis or mottling, including that of the nail beds and knees. NEUROLOGIC:. Gross motor and gross sensation intact. Gross II through XII intact. PSYCHIATRIC: Shows him to be awake and alert, able to answer questions, but with a fairly depressed affect. INVESTIGATIONS: His white count is 3.2 with a hemoglobin and hematocrit of 9.2 and 31.6 and platelet count of 110,000. There is no differential. Differential on 09/15 showed 86% neutrophils, 7% lymphocytes, and 4% monocytes. There are no immature forms and no toxic granulations reported at that time. Chemistries today showed normal electrolytes with BUN and creatinine of 20 and 0.69. Glucose was 126 with a calcium of 8.3 and a corresponding albumin of 2.5. PT/INR of 14.1 and 1.07 with a PTT of 28 seconds. He is COVID negative. IMAGING DATA: His CT abdomen done on 09/15, there looks to be a loculated pleural effusion on the right side. Adrenals have a normal configuration. Lung windows show major volume loss of the right side probably secondary to radiation changes with bronchiectasis. Left lung shows hyperexpansion with a mediastinal shift to the right secondary to the volume loss on the right from the radiation. He has numerous emphysematous changes. CT angiogram of the chest done on 08/17 did not show a pulmonary embolism, but he still has the chronic loculated pleural effusion with what looks to be a rind and trapped lung. IMPRESSION: 1. Chronic loculated pleural effusion. 2. Stage IIIB lung cancer status post radiation and chemotherapy. 3. Pain right chest. 4. Radiation stomatitis. 5. Chronic G-tube leakages. PLAN AND DISCUSSION: I am not at all convinced that his chest pain is secondary to his pleural effusion. I suspect it is a malignant pleural effusion, however. He does not seem to have symptomatology consistent with an empyema or a pneumonia. Nevertheless, it would not be detrimental to drain the pleural fluid to see one for diagnosis purposes and two to see if it does relieve his pain. I will, therefore, ask x-ray to place a pigtail catheter and place a Pleur-Evac for drainage. Will follow his chest x-rays. I will order the requisite studies including cytologies, hematologies, chemistries, and bacteriologies on the pleural fluid.
[2020-09-17] MEDS ORDERED: MORPHINE 4 MG/ML 1ML VIAL/SYRINGE (J2270) IV PRN (10:30)
--- NOTE | 2020-09-17 11:53 | REP ---
INDICATION: mesenteric , ?sma stenosis, portable ultrasound. COMPARISON: Comparison is made with CT study of the abdomen with IV contrast September 15, 2020 showing an impressive plaque and calcification narrowing the superior mesenteric artery.. TECHNIQUE: Visceral arterial Doppler assessment is performed at rest and in response to oral caliber or Tyshawn challenge. This patient was only able to be given 70 mL of Ensure through his feeding tube. This is much less than the usual protocol and this could affect Doppler data. FINDINGS: Peak systolic velocity in the celiac axis was slightly elevated at 190 cm/S, EDV 44 cm/S. Peak systolic velocity did rise appropriately 10 minutes after the oral colorectal challenge and then taper back towards baseline. No stenotic velocities were observed. Superior mesenteric artery velocity chart: Baseline proximal SMA PSV 68 cm/S EDV 11.8 cm/S, mid SMA 126/9.4 cm/S 10 minutes post meal, proximal SMA 144/24, mid SMA 149/19 20 minutes post meal, proximal SMA 98/13, mid SMA 91/63 30 minutes post meal, proximal SFA 122/22, mid SMA 92/5.3 40 minutes post meal, proximal SMA 118/21, mid SMA 91/83 IMPRESSION: Limited p.o. intake but normal velocity response to meal initially. No Doppler evidence of high-grade stenosis. <Electronically signed by Ankit Lynn > 09/17/20 [id number]
--- NOTE | 2020-09-17 12:39 | IPNPDOC ---
Text Note Date of Service The patient was seen on 09/17/20. NOTE General Surgery Dr Bland. The patient is a 79-year-old male with dysphagia and G-tube placement, with history of tube feeding abnormalities and complaints of chronic pain. General surgery was consulted to evaluate leakage from G-tube. Nursing does not report leakage from the G-tube. The patient continues to report pain. He is requesting pain medicine sometimes for abdominal pain and also for chest pain. Afebrile Heart rate 78, respiratory rate 17, blood pressure 103/58, 96% room air. The patient appears frail, cachectic. NAD at this time of my exam. Lungs right chest tube. S1 and S2 regular. Abdomen. Soft, nondistended, no tenderness currently around the G-tube and no leakage currently. Dressing is intact. The patient does have skin erythema around the G-tube with some skin scaling, zinc oxide cream applied, dressing in place, tube feeding in process. Extremities are well perfused with no edema. Residuals yesterday ranged from 5-100 mL. Residual taken while the patient complained of abdominal pain 10 mL Abdominal Doppler ultrasound IMPRESSION: Limited p.o. intake but normal velocity response to meal initially. No Doppler evidence of high-grade stenosis. <Electronically signed by Ankit Lynn > 09/17/20 1149 A/P Dysphagia with G-tube. No leakage observed at this time. Plan is to continue with tube feeding as currently ordered, Continue to monitor for residual every 4 hours. Residuals have been 5-100 mL and at the time of pain 10 mL Abdominal Doppler ultrasound indicated no Doppler evidence of high-grade stenosis. Continue to apply Zinc oxide cream for skin irritation around G-tube site. Continue to monitor. VS,Fishbone, I+O VS, Fishbone, I+O Laboratory Tests 09/17/20 05:52 Vital Signs Date Time Temp Pulse Resp B/P (MAP) Pulse Ox O2 Delivery O2 Flow Rate FiO2 09/17/20 11:58 98.1 83 19 95/56 (69) 94 Room Air I&O- Last 24 Hours up to 6 AM 09/17/20 06:00 Intake Total 100 ml Output Total 475 ml Balance -375 ml Ragini Johnson Sep 17, 2020 12:39
[2020-09-17] MEDS: NYSTATIN OINTMENT 15 GM TOP SCH ×2 (13:26→21:33)
--- NOTE | 2020-09-17 15:25 | IPNPDOC ---
Date Seen The patient was seen on 09/17/20. Progress Note SUBJECTIVE: No residuals overnight, chest tube taken out this AM by CT surgery. US abd indicated no doppler evidence of high-grade stenosis. Palliative medicine consulted for pain control of chronic pain. Denies chest pain, shortness of breath, fevers, chills OBJECTIVE: PHYSICAL EXAMINATION: VITAL SIGNS: See below GENERAL: Cachectic, resting in bed . AAOx 3 HEENT: NC, AT, EOMI, no scleral icterus, moist mucous membranes NECK: No cervical or supraclavicular lymphadenopathy. No JVD. CARDIOVASCULAR: RRR, normal S1 and S2. No murmurs, gallops, rubs. LUNGS:decreased BS up to mid-lung on right lung, CTAB on right lung, no W/R/R ABDOMEN: Soft, non-tender, non-distended, bowel sounds present. No hepatosplenomegaly. No masses or eccymosis. No CVA tenderness. G tube in place in left abdominal wall . EXTREMITIES: No swelling or edema SKIN: Multiple raised, stuck on brown-yellow plaques along anterior chest. Surrounding area of feeding tube is very erythematous,mildly tender but improved NEUROLOGICAL: No focal or sensory deficits. CN II-XII grossly intact. LABORATORY DATA: See below. MICROBIOLOGY: BCx x 2 sets: pending IMAGING: Abdominal Doppler ultrasound 09/17/20: Limited p.o. intake but normal velocity response to meal initially. No Doppler evidence of high-grade stenosis. ABdXR: peg tube in good position CT abd/pelvis: 1. Large loculation of the fluid at the right lung base has mildly increased. 2. Graft within the abdominal aortic aneurysm appears intact and opacifies. There is severe atherosclerotic plaque of the SMA ASSESSMENT: Patient is a 79 year old male with a history of soft palate neck cancer and not fully treated lung cancer admitted for severe abdominal pain, leaking G tube. 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 Howell. Pi gtail placed on 09/16/20 taken out 09/17/20, pleural fluid showed to be mildly exudative but likely mostly malignant. Lung entrapment present -Previously on chemo but no treatment since 2019 -Patient is no longer interested in treatment and stop seeking treatment about a year ago. -Guaifenesin for handling secretions -Per CT surgery, this lung will likely not expand with cancer that is present. Fluid may reaccumulate and need to be drained in future. Abdominal pain, chronic and intermittent. Gastroparesis vs. 2/2 to G tube vs. referred pain from chest -WBC wnl, lactic acid wnl. -US abd: showed no high grade stenosis of vessels -ABXR: above -Also, watching PEG tube and feedings closely to see if associated with incr pain -Dr. Bland (general surgery) following -Palliative care consulted for chronic pain management Leaking G-tube -Minimal residuals -Replaced on 08/21/20 -GJ conversion was not able to be done, discussed with both Dr. Bland and Dr. Hancock on last admission -when patient was discharged, plan was likely to be needing to replace as o/p -Has been tolerating feedings well here per surgery, no plans on changing tube -F/u surgery recommendations, dietary suggestions T3-T6 compression fractures with chronic back pain -Ortho had seen last admission, recommend WBAT and to f/u after discharge with spine surgeon, no emergent need -Currently on morphine IV. -Plan is hopes of d/c home with family providing 27/02 -F/u palliative suggestions for pain control -PT/OT while here ELLIOT, chronic -H/H stable -C/w iron supplementation -CBC daily Thrombocytopenia, chronic -Since 2018 -Watch while on enoxaparin, stop if worsens -Monitor CBC daily Deconditioning, acute on chronic 2/2 to compression fractures above -Chronic illness -PT/OT -Nutritional optimization Hypertensive heart disease -Stable Bradycardia with a pacemaker. -Stable BPH - flomax Anxiety -C/w xanax, hydroxyzine GERD - famotidine # COPD -Stable -Continue home albuterol DVT px -Enoxaparin DISPOSITION: Palliative consult placed, discussed case with Tana Hernandez. Surg bogdan following. Plan is home when medically improved. VS, I&O, 24H, Fishbone Vital Signs/I&O Vital Signs Date Time Temp Pulse Resp B/P (MAP) Pulse Ox O2 Delivery O2 Flow Rate FiO2 09/17/20 14:00 99/62 (74) 09/17/20 11:58 98.1 83 19 94 Room Air I&O- Last 24 Hours up to 6 AM 09/17/20 06:00 Intake Total 100 ml Output Total 475 ml Balance -375 ml Laboratory Data 24H LABS Laboratory Tests 2 09/16/20 16:30: Body Fluid pH 7.528, Body Fluid pH Source PLEURAL, Body Fluid WBC (Auto) 282H, Body Fluid RBC (Auto) 12, Body Fluid Mononuclear Cells % Auto 57.5H, Fluid Polymorphonuclear Cell % Auto 42.5H, Body Fluid Glucose Source PLEURAL, Body Fluid Glucose 89, Body Fluid Protein Source PLEURAL, Body Fluid Total Protein 3.9, Body Fluid Albumin Source PLEURAL, Body Fluid Albumin 1.9, Body Fluid LDH Source PLEURAL, Body Fluid Lactate Dehydrogenase 128, Body Fluid Amylase Source PLEURAL, Body Fluid Amylase 22, Body Fluid Cholesterol < 50, Body Fluid Cholesterol Source PLEURAL, Body Fluid Triglyceride Source PLEURAL, Body Fluid Triglycerides 19, Pleural Fluid Source PLEURAL, Pleural Fluid Color YELLOW, Pleural Fluid Appearance CLEAR 09/17/20 05:52: Nucleated Red Blood Cells % (auto) 0.0, Anion Gap 7L, Glomerular Filtration Rate > 60.0, Calcium Level 8.6L, Total Bilirubin 0.4, Aspartate Amino Transf (AST/SGOT) 9, Alanine Aminotransferase (ALT/SGPT) 14, Alkaline Phosphatase 94, Total Protein 6.2L, Albumin 2.5L, Albumin/Globulin Ratio 0.7 CBC/BMP Laboratory Tests 09/17/20 05:52 Microbiology Microbiology 09/16/20 Acid Fast Stain, Received Pending 09/16/20 Mycobacterial Culture, Received Pending 09/16/20 Fungal Smear, Received Pending 09/16/20 Fungal Culture, Received Pending 09/16/20 Gram Stain - Final, Resulted 09/16/20 Anaerobic Culture, Resulted Pending 09/16/20 Body Fluid Culture, Received Pending 09/15/20 Gram Stain - Final, Resulted 09/15/20 Wound Culture - Preliminary, Resulted Yeast Like Organism 09/15/20 Blood Culture - Preliminary, Resulted No growth after 24 hours . All specim... 09/15/20 Blood Culture - Preliminary, Resulted No growth after 24 hours . All specim... Current Medications Current Medications Medications (Trade) Dose Ordered Sig/Mallorie Route PRN Reason Start Time Stop Time Status Last Admin Dose Admin Acyclovir (Zovirax) 400 mg BID PEG 09/15/20 21:00 09/17/20 08:28 Albuterol Sulfate (Proventil, Ventolin Hfa) 2 puff QID PRN INH WHEEZING 09/15/20 18:45 Alprazolam (Xanax) 0.5 mg BID PEG 09/15/20 21:00 09/17/20 08:28 Cephalexin Monohydrate (Keflex) 500 mg BID PEG 09/15/20 21:00 09/17/20 08:29 Diatrizoate Meglum/ Diatrizoate Sod (Gastrografin) 10 ml Q30M PO 09/15/20 16:15 09/15/20 16:46 DC 09/15/20 16:15 Digoxin (Lanoxin) 0.125 mg Q2D PEG 09/16/20 09:00 09/16/20 08:27 Docusate Sodium (Colace Liquid) 100 mg BID GT 09/16/20 09:00 09/17/20 08:28 Doxazosin Mesylate (Cardura) 1 mg QHS PEG 09/15/20 21:00 09/16/20 21:17 Enoxaparin Sodium (Lovenox) 40 mg DAILY SC 09/16/20 09:00 09/16/20 13:19 DC Famotidine (Pepcid) 20 mg DAILYPRN PRN PEG ACID REFLUX 09/15/20 18:45 Guaifenesin (Robitussin) 25 ml BIDP PRN PEG CONGESTION 09/15/20 18:45 Home Med (Med Rec Complete!) ASDIRECTED XX 09/15/20 18:15 09/15/20 18:10 DC Hydroxyzine HCl (Atarax) 25 mg QIDP PRN PEG ITCHING 09/15/20 18:45 Ketorolac Tromethamine (ToRADol) 15 mg Q6H IV 09/16/20 20:00 09/21/20 19:59 09/17/20 13:24 Magnesium Hydroxide (Milk Of Magnesia) 15 ml DAILY PRN PEG CONSTIPATION 09/15/20 18:45 Metoclopramide HCl (Reglan Liquid) 10 mg QID PEG 09/15/20 21:00 09/17/20 13:25 Morphine Sulfate (Morphine Sulfate Inj) 2 mg Q6HP PRN IV SEVERE PAIN (PS 8-10) 09/15/20 18:45 09/17/20 10:21 DC 09/17/20 05:36 Morphine Sulfate (Morphine Sulfate Inj) 3 mg Q3HP PRN IV SEVERE PAIN (PS 8-10) 09/15/20 18:00 09/15/20 18:47 DC Morphine Sulfate (Morphine Sulfate Inj) 3 mg Q6HP PRN IV SEVERE PAIN (PS 8-10) 09/17/20 10:30 09/17/20 11:34 Nystatin (Mycostatin) apply to g tube site/ okay... BID TOP 09/17/20 09:00 09/17/20 13:26 Oxycodone/ Acetaminophen (Percocet 5mg/ 325mg Tablet) 1 tab QID PO 09/15/20 21:00 09/17/20 10:20 DC 09/17/20 08:29 Oxycodone/ Acetaminophen (Percocet 5mg/ 325mg Tablet) 2 tab QID PO 09/17/20 13:00 Prednisone (Deltasone) 5 mg DAILY PEG 09/16/20 09:00 09/17/20 08:28 Sodium Chloride (Saline Lock Flush) 2 ml ASDIRECTED PRN IV SEE LABEL COMMENTS 09/16/20 17:00 Sodium Chloride (Saline Lock Flush) 2 ml SLF IV 09/16/20 22:00 09/17/20 14:58 Tamsulosin HCl (Flomax) 0.4 mg DAILY PO 09/16/20 09:00 09/17/20 08:28 Zinc Oxide (Boudreauxs Butt Paste) 1 dose BID TOP 09/15/20 21:00 09/17/20 08:30 Allergies Coded Allergies: No Known Allergies (Unverified , 06/03/20) Gay Renee MD Sep 17, 2020 15:25
--- NOTE | 2020-09-17 17:09 | CR.PDOC ---
General Date of Consultation: Sep 17, 2020 Referring Provider: Gay Renee MD Primary Care Physician: Ivelisse Menjivar Attending Physician: Gay Renee MD Consultation REASON FOR CONSULTATION/CHIEF COMPLAINT: Abdominal pain, severe cutaneous pain around feeding tube, PHN. HISTORY OF PRESENT ILLNESS: 79 year old male with history of lungcancer and throat cancer. He had RT and chemo for his cancer however stopped chemo as he did not tolerate the treatments. He tells me today that shortly after stopping, his was diagnosed with cancer and subsequently . He is admitted here since September 15 after presenting to the ED with leakage around his G tube which was causing severely excoriated skin. Initially he would not speak with me at all and declined to answer any of my questons pertaining to his pain. Eventually he stated his worst problem is cutaneous burning pain around his G tube followed closely by abdominal pain inside his abdomen that feels like he is being stabbed. He also informs me he had "shingles" some time ago and has had constant burning and itching pain on his right torso. He told me I was absolutely not to call and speak with his son about anything regarding his medical care. He initally refused to show me his G tube stoma but eventually relented. ALLERGIES: Please see below. HOME MEDICATIONS: Please see below. PAST MEDICAL HISTORY: 1. T3-T6 compression fractures 2. Leaking G TUbe 3. SCC soft palate RT and [id number] 4. radiation esophagitis 5. LLL lung cancer ([facility]) 6. history of PR 7. hypertensive heart disease 8. bradycardia with pacemaker 9. BPH 10. GERD 11. COPD 12. dysphagia PAST SURGICAL HISTORY: 1. left sided chest tube/Pleurex 06/2019 for recurrent pleural effusion 2. Dual chamber pacemaker 3. G tube insertion 12/23 4. G tube reinsertion 08/2020 5. colectomy with colostomy, take down and reanastamosis 6. AAA repair FAMILY HISTORY: M- brain aneurysm B- lung cancer SOCIAL HISTORY: Marital status and/or living arrangements: Children: 1 son with whom he lives Employment: retired Tobacco use:quit 5 years ago after 2ppd x 50 years ETOH: quit 5 years ago Illicit drug use: n/a IV drug use: n/a REVIEW OF SYSTEMS: CONSTITUTIONAL: general malaise, fatigue HEENT: wears glasses but does not have them here CARDIOVASCULAR: denies chest pain/palpitations RESPIRATORY: FUNES GENITOURINARY: urinary hesitancy due to BPH MUSCULOSKELETAL: mid thoracic discomfort from compression fractures, complains all his joints hurt "because I'm old" GASTROINTESTINAL: G tube, constipation. 3 or 4 days since last BM SKIN: painful excoriation around Gtube NEUROLOGICAL: denies tremors. +weakness PSYCHIATRIC: appears to have blunted affect, denies SI/HI ENDOCRINE: denies heat or cold intolerance HEMATOLOGIC/LYMPHATIC: denies bleeding PHYSICAL EXAMINATION: VITAL SIGNS: Please see below. GENERAL APPEARANCE: alert, oriented, irritable, laying in bed in no distress HEENT: edentulous, moist membranes, no icterus RESPIRATORY: CTA CARDIOVASCULAR: RRR ABDOMEN: scaphoid with well healed surgical scars. No rebound or guarding EXTREMITIES: no edema. poor muscle mass NEUROLOGICAL: CN 2-12 grossly intact PSYCHIATRIC: irritable, suspicious, angry Skin: large area or erythematous shiny skin around Gtube LABORATORY DATA: Please see below. ASSESSMENT/PLAN: 1. Lung and soft palate cancer history, incomplete treatment of lung cancer 2. Skin excoriation around G tube 3. Chronic back pain 4. PHN 5. Clarification of goals of care In talking with Mr. uCrry, he complained he never gets his pain medication unless he asks for it. Nursing clarified for me that he actually has been recei ving Percocet 10 mg po QID standing and and 5 mg QID for breakthrough pain. This apparently started yesterday, and his care was a bit complicated today by the fact his Gtube stoma had been cleansed by nursing just before I arrived and he was having acute pain from that. If he seems to settle out on a total daily dose of oxycodone of 60 mg ( 10 x 4 plus 5 x 4 ) then consideration could be given to a fentanyl patch since he has dysphagia. The only long acting medication that could be given down his Gtube would be methadone liquid ir crushed 5 mg tablets and the starting dose would be 5 mg q8hr. Mr. Curry appears to have the desire to continue with Percocet, stating he has been tried on a lot of other medications in the past and Percocet worked the best. It would be reasonable to start a fentanyl patch and continue prn Percocet to see if he gets better baseline control. I think it would be reasonable to consider something like duloxetine 20 mg opened and placed down his G tube once daily qam and if he has no nausea, increase to 40 mg for one week then 60 mg if he has no hypertension and tolerates it. He has post herpetic neuralgia, depression and musculoskeletal pain and there is indication for all three conditions. Consider gabapentin 100 mg po qhs for one week, increase to 200 mg if tolerated. This may help with the neuropathic component of his pain and may also help with anxiety. I am uncertain what his life expectancy is. He is not accepting any further cancer treatment and nursing reports he appears frustrated wtih ongoing interventions. He was not really willing to speak with me much today and it was a challenge to engage him much at all. I am happy to try to talk with him further when I return to this area next Friday 09/22 if he is still in the [facility]. I explained the purpose of my clininc and he knows its location since his PCP is in the same building. He asked me not to contact his son and I will honor his request until he is comfortable with me reaching out to his family. Vital Signs/I&O Vital Signs Date Time Temp Pulse Resp B/P (MAP) Pulse Ox O2 Delivery O2 Flow Rate FiO2 09/17/20 16:19 18 09/17/20 15:55 98.1 89 130/60 (83) 96 Room Air I&O- Last 24 Hours up to 6 AM 09/17/20 06:00 Intake Total 100 ml Output Total 475 ml Balance -375 ml Laboratory Data Labs 24H Laboratory Tests 2 09/17/20 05:52: Nucleated Red Blood Cells % (auto) 0.0, Anion Gap 7L, Glomerular Filtration Rate > 60.0, Calcium Level 8.6L, Total Bilirubin 0.4, Aspartate Amino Transf (AST/SGOT) 9, Alanine Aminotransferase (ALT/SGPT) 14, Alkaline Phosphatase 94, Total Protein 6.2L, Albumin 2.5L, Albumin/Globulin Ratio 0.7 CBC/BMP Laboratory Tests 09/17/20 05:52 Microbiology Microbiology 09/16/20 Acid Fast Stain, Received Pending 09/16/20 Mycobacterial Culture, Received Pending 09/16/20 Fungal Smear, Received Pending 09/16/20 Fungal Culture, Received Pending 09/16/20 Gram Stain - Final, Resulted 09/16/20 Anaerobic Culture, Resulted Pending 09/16/20 Body Fluid Culture, Received Pending 09/15/20 Gram Stain - Final, Resulted 09/15/20 Wound Culture - Preliminary, Resulted Yeast Like Organism 09/15/20 Blood Culture - Preliminary, Resulted No Growth after 48 hours. All Specime... 09/15/20 Blood Culture - Preliminary, Resulted No Growth after 48 hours. All Specime... Allergies Coded Allergies: No Known Allergies (Unverified , 06/03/20) Home Medications Scheduled Acyclovir (Acyclovir) 400 Mg Tablet, 400 MG PEG BID, (Reported) Alprazolam (Alprazolam) 0.5 Mg Tablet, 0.5 MG PEG BID, (Reported) Cephalexin (Cephalexin) 500 Mg Capsule, 500 MG PEG BID, (Reported) STARTED 09/03/20 FOR 10 DAYS, HAS A COUPLE DAYS LEFT PER SON Digoxin (Digoxin) 125 Mcg Tablet, 125 MCG PEG Q2D, (Reported) Doxazosin Mesylate (Doxazosin Mesylate) 1 Mg Tablet, 1 MG PEG QHS, (Reported) Lactose-Reduced Food/Fiber (Jevity 1.2 Lazaro Liquid) 237 Ml Liquid, 1 LIQ PEG QID, (Reported) TAKES 3 TO 4 TIMES DAILY DEPENDING ON HOW STOMACH FEELS Metoclopramide HCl (Metoclopramide HCl) 10 Mg/10 Ml Solution, 10 MG PEG QID, (Reported) Oxycodone HCl/Acetaminophen (Percocet 5-325 mg Tablet) 1 Each Tablet, 1 TAB PO QID, (Reported) Prednisone (Prednisone) 5 Mg Tablet, 5 MG PEG DAILY, (Reported) Tamsulosin HCl (Flomax) 0.4 Mg Capsule, 0.4 MG PEG DAILY, (Reported) Scheduled PRN Albuterol Sulfate (Albuterol Sulfate Hfa) 8.5 Gm Hfa.aer.ad, 2 PUFF INH QID PRN for WHEEZING, (Reported) Famotidine (Pepcid) 20 Mg Tablet, 20 MG PEG DAILY PRN for ACID REFLUX, (Reported) Guaifenesin (Guaifenesin) 100 Mg/5 Ml Liquid, 25 ML PEG BID PRN for CONGESTION, (Reported) Hydroxyzine Pamoate (Hydroxyzine Pamoate) 25 Mg Capsule, 25 MG PEG QID PRN for ITCHING, (Reported) Magnesium Hydroxide (Milk of Magnesia) 400 Mg/5 Ml Oral.susp, 15 ML PEG DAILY PRN for CONSTIPATION, (Reported) Tana JACOBS [employer]ICE [employer]IDENT [employer] Sep 17, 2020 17:09
[2020-09-17] MEDS: DOXAZOSIN MESYLATE 1 MG TAB PEG SCH (21:27)
[2020-09-18] VITALS: BP 94/54
[2020-09-18] MEDS: KETOROLAC 30 MG/ML 1ML VIAL IV SCH ×4 (01:17→19:48)
[2020-09-18] MEDS: MORPHINE 2 MG/ML 1ML VIAL (J2270) IV PRN ×2 (04:15→15:10)
[2020-09-18] MEDS: SLF 3 ML SYR IV SCH ×3 (04:20→21:05)
[2020-09-18 04:42] VITALS: BP 119/60
[2020-09-18] MEDS ORDERED: NS 1,000 ML IV SCH (05:15)
[2020-09-18 05:24] LABS: HEMATOCRIT 29.9 % (42.0-52.0); HEMOGLOBIN 8.7 g/dl (13.5-17.5); MEAN CORPUSCULAR HEMOGLOBIN 28.8 pg (27.0-33.0); MEAN CORPUSCULAR HGB CONC 29.1 g/dl (32.0-36.5); RED BLOOD COUNT 3.02 10^6/uL (4.30-6.10); WHITE BLOOD COUNT 3.7 10^3/uL (4.0-10.0)
[2020-09-18 05:30] LABS: PLATELET COUNT, AUTOMATED 99 10^3/uL (150-450)
[2020-09-18 05:44] LABS: ALBUMIN 2.4 GM/DL (3.2-5.2); ALT/SGPT 13 U/L (12-78); BILIRUBIN,TOTAL 0.3 MG/DL (0.2-1.0); BLOOD UREA NITROGEN 26 MG/DL (7-18); CALCIUM LEVEL 8.4 MG/DL (8.8-10.2); CARBON DIOXIDE LEVEL 34 MEQ/L (21-32); CHLORIDE LEVEL 106 MEQ/L (98-107); CREATININE FOR GFR 0.82 MG/DL (0.70-1.30); GLOMERULAR FILTRATION RATE > 60.0 (>42); GLUCOSE, FASTING 90 MG/DL (70-100); POTASSIUM SERUM 4.1 MEQ/L (3.5-5.1); SODIUM LEVEL 145 MEQ/L (136-145); TOTAL PROTEIN 5.6 GM/DL (6.4-8.2)
[2020-09-18 08:00] VITALS: BP 119/64
[2020-09-18] MEDS: PERCOCET 5MG/325MG TAB PEG SCH ×4 (08:29→21:04)
[2020-09-18] MEDS: predniSONE 5 MG TAB PEG SCH (08:29)
[2020-09-18] MEDS: ACYCLOVIR 200 MG CAPSULE PEG SCH ×2 (08:29→21:02)
[2020-09-18] MEDS: ALPRAZolam 0.5 MG TAB PEG SCH ×2 (08:30→21:03)
[2020-09-18] MEDS: GABAPENTIN 100 MG CAP PEG SCH (08:30)
[2020-09-18] MEDS: DOCUSATE SOD LIQ 100MG/10ML UDC PEG SCH ×2 (08:30→21:02)
[2020-09-18] MEDS: METOCLOPRAMIDE HCL LIQUID 10 MG/10 ML UDC PEG SCH ×4 (08:30→21:02)
[2020-09-18] MEDS: DIGOXIN 0.125 MG TAB PEG SCH (08:30)
[2020-09-18] MEDS: BOUDREAUX'S BUTT PASTE TOP SCH ×2 (08:32→21:04)
[2020-09-18] MEDS: NYSTATIN OINTMENT 15 GM TOP SCH ×2 (08:32→21:05)
[2020-09-18] MEDS ORDERED: GABAPENTIN 100 MG CAP PO SCH (09:00)
[2020-09-18] MEDS ORDERED: E-Z-PAQUE 96% w/w SUSP 176GM BTL As Ordered ONE (09:44)
--- NOTE | 2020-09-18 10:11 | IPN ---
PROGRESS NOTE DATE: 09/17/2020 SUBJECTIVE: Mr. Curry is in a considerable amount of diffuse pain preferably referable to his abdomen. His chest pain is essentially unchanged from yesterday prior to placement of a catheter. The catheter is bothering him. He has drained very little from the catheter, approximately 45 mL overnight and 100 mL of fluid was withdrawn and sent to the lab for laboratory analysis. PHYSICAL EXAMINATION: T-max 98.1 with a heart rate that ranges between 77 and 101 and a respiratory rate of 16-20 without the use of accessory muscles. He was 94-96% saturated on room air and has blood pressures ranging between 95/56 to 130/60. His intake and output for the past 24 hours has been recorded as 100 in and 380 out for a negativity of 280 mL. He put 55 mL out the chest tube yesterday in addition to 100 mL that was withdrawn for a total of 155 mL. There is no air leak. On physical examination I cannot sit him secondary to his abdominal pain but he has decreased breath sounds on the right side with rhonchi throughout both lungs. Cardiac exam is without murmurs, clicks, gallops, or rubs. I cannot feel his PMI. S1, S2 are normal. Abdomen is diffusely tender but notably without rigidity or guarding. Bowel sounds are hypoactive but present. Extremities show no pretibial edema, no calf tenderness, no differential swelling of the upper extremities. Skin is warm and dry and perfused without cyanosis or mottling including that of nailbeds and knees. Neck is supple. There is no jugular venous distention, no subcutaneous emphysema. Trachea is midline. Mouth shows the mucous membranes to be dry and pink. Eyes show the pupils to be equal, round, and reactive. Extraocular movements are intact. Sclerae are nonicteric. Neuro shows gross motor, gross sensation intact and gross II-XII intact. Gait is not tested of course. Psychiatric shows her to be awake and alert and appropriately anxious secondary to his pain. His white count today is 3.7 with a hemoglobin and hematocrit of 9.1 and 31.3 respectively. Platelet count is 103 and stable. Chemistries show normal electrolytes with a BUN and creatinine of 21 and 0.71, glucose 77, and calcium of 8.6 with corresponding albumin of 2.5. He could not stand for his chest x-ray today so I obtained a portable chest x-ray. Portable chest x-ray shows the catheter in place with what looks to be radiation changes. More specifically, the post-catheter insertion chest x-ray done PA and lateral shows an air fluid level in an airspace surrounded by entrapped lung. I am afraid this lung is entirely trapped and that the fluid will only reaccumulate when the drain is removed. He has not gotten much relief from the drainage procedure and I do not think that his chest discomfort is secondary to the fluid. Fluid analysis shows the pleural fluid having a pH of 7.52 with a glucose of 89 and an LDH of 128 with a corresponding serum LDH of 115 with a total protein of 3.9 and a serum total protein of 6.2. He has 282 white cells, 57% of which are mononuclear lymphocytes and 42 PMNs. This therefore looks to be a predominantly mononuclear lymphocytic exudative effusion. I suspect this is going to jewel bearing turner to be malignant. Pathology is pending. Microbiology shows no organisms. IMPRESSION: 1. Stage IIIB non-small cell lung cancer previously treated with chemoradiation. 2. Radiation esophagitis. 3. 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 4. G tube dependence for nutrition. 5. Hypertension. 6. Right chest pain probably referred from the abdomen. 7. Radiation stomatitis. 8. Chronic G tube leakages. 9. Chronic loculated pleural effusion. PLAN AND DISCUSSION: I do not think the pigtail catheter has given any pain relief. It is in a cavity that has an entrapped lung and the fluid will always reaccumulate. It does not look like an empyema. I am therefore going to pull the catheter as it is giving him more discomfort. Fluid will reaccumulate. She is asking for pain medications and I have discussed this with Dr. Renee of the hospitalist service and she will address the pain control issue. I think Mr. Curry's prognosis is very poor and he is in an incredible amount of discomfort. I will leave his G tube management to General Surgery.
--- NOTE | 2020-09-18 12:44 | IPNPDOC ---
Date Seen The patient was seen on 09/18/20. Progress Note SUBJECTIVE: Palliative evaluated patient, provided options for more long-acting pain control. SB follow through XR with contrast through G tube to occur today, GI consulted to evaluate for continued abdominal pain. Denies chest pain, shortness of breath, fevers, chills OBJECTIVE: PHYSICAL EXAMINATION: VITAL SIGNS: See below GENERAL: Cachectic, resting in bed . AAOx 3 HEENT: NC, AT, EOMI, no scleral icterus, moist mucous membranes NECK: No cervical or supraclavicular lymphadenopathy. No JVD. CARDIOVASCULAR: RRR, normal S1 and S2. No murmurs, gallops, rubs. LUNGS:decreased BS up to mid-lung on right lung, CTAB on right lung, no W/R/R. Posterior right lung incision healing well ABDOMEN: Soft, non-tender, non-distended, bowel sounds present. No hepatosplenomegaly. No masses or eccymosis. No CVA tenderness. G tube in place in left abdominal wall . EXTREMITIES: No swelling or edema SKIN: Multiple raised, stuck on brown-yellow plaques along anterior chest. Surrounding area of feeding tube is very erythematous,mildly tender NEUROLOGICAL: No focal or sensory deficits. CN II-XII grossly intact. LABORATORY DATA: See below. MICROBIOLOGY: BCx x 2 sets: NG Pleural fluid Cx: NG Wound GS from around G tube: NO CELLS SEEN, NO ORGANISMS SEEN Wound Cx from around G tube: Organism 1 ENTEROCOCCUS FAECALIS, Organism 2 YEAST LIKE ORGANISM IMAGING: SB follow through, XR with contrast: pending Abdominal Doppler ultrasound 09/17/20: Limited p.o. intake but normal velocity response to meal initially. No Doppler evidence of high-grade stenosis. ABdXR: peg tube in good position CT abd/pelvis: 1. Large loculation of the fluid at the right lung base has mildly increased. 2. Graft within the abdominal aortic aneurysm appears intact and opacifies. There is severe atherosclerotic plaque of the SMA ASSESSMENT: Patient is a 79 year old male with a history of soft palate neck cancer and not fully treated lung cancer admitted for severe abdominal pain, leaking G tube. 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 Howell. Pigtail placed on 09/16/20 taken out 09/17/20, pleural fluid showed to be mildly exudative but likely mostly malignant. Lung entrapment present -Previously on chemo but no treatment since 2019 -Patient is no longer interested in treatment and stop seeking treatment about a year ago. -Guaifenesin for handling secretions -Per CT surgery, this lung will likely not expand with cancer that is present. Pigtail removed. Fluid may reaccumulate and need to be drained in future. -This is not thought to be cause of abdominal pain. Abdominal pain, chronic and intermittent. Gastroparesis vs. 2/2 to G tube vs. referred pain from chest vs. other cause: -WBC wnl, lactic acid wnl. Not thought to be gastric emptying issue from surgery perspective, no residuals -US abd: showed no high grade stenosis of vessels -ABXR: above -Also, watching PEG tube and feedings closely to see if associated with incr pain -Dr. Bland (general surgery) following -Palliative care consulted and have given suggestions for chronic pain management -GI consulted today, small bowel follow through ordered per their request, f/u recommendations G-tube issues -Minimal residuals -Replaced on 08/21/20 -GJ conversion was not able to be done, discussed with both Dr. Bland and Dr. Hancock on last admission -when patient was discharged, plan was likely to be needing to replace as o/p -Has been tolerating feedings well here per surgery, no plans on changing tube -F/u surgery recommendations, dietary suggestions T3-T6 compression fractures with chronic back pain -Ortho had seen last admission, recommend WBAT and to f/u after discharge with spine surgeon, no emergent need -Currently on morphine IV. -Plan is hopes of d/c home with family providing 27/02 -F/u palliative suggestions for pain control -PT/OT while here Chronic pain from issues above -Increased percocet to 2 tabs QID, morphine PRN -Please refer to palliative care not for suggestions made by their service. -for now starting on low does gabapentin, can increase if needed -Also morphine IV PRN -Discussed switching to fentanyl patch + percocet PRN which also would work. Will let GI see first then start new regimen likely in AM on 09/19/20. ELLIOT, chronic -H/h slightly lower but has been on and off iVFs which can be dilutional -No s/s of bleeding -C/w iron supplementation -CBC daily -Transfuse if <8 Hgb Thrombocytopenia, chronic -Since 2018 -Watch while on enoxaparin, stop if worsens -Monitor CBC daily Deconditioning, acute on chronic 2/2 to compression fractures above -Chronic illness -PT/OT -Nutritional optimization Hypertensive heart disease -Stable Bradycardia with a pacemaker. -Stable BPH - flomax Anxiety -C/w xanax, hydroxyzine GERD - famotidine # COPD -Stable -Continue home albuterol DVT px -Enoxaparin DISPOSITION: GI consulted, f/u recommendations. Surgery following. Plan is home when medically improved. VS, I&O, 24H, Fishbone Vital Signs/I&O Vital Signs Date Time Temp Pulse Resp B/P (MAP) Pulse Ox O2 Delivery O2 Flow Rate FiO2 09/18/20 08:59 16 09/18/20 08:30 82 09/18/20 08:00 98.7 119/64 (82) 95 Room Air I&O- Last 24 Hours up to 6 AM 09/18/20 06:00 Intake Total 500 ml Output Total 325 ml Balance 175 ml Laboratory Data 24H LABS Laboratory Tests 2 09/18/20 05:02: Nucleated Red Blood Cells % (auto) 0.0, Immature Platelet Fraction 4.6, Anion Gap 5L, Glomerular Filtration Rate > 60.0, Calcium Level 8.4L, Total Bilirubin 0.3, Aspartate Amino Transf (AST/SGOT) 8, Alanine Aminotransferase (ALT/SGPT) 13, Alkaline Phosphatase 98, Total Protein 5.6L, Albumin 2.4L, Albumin/Globulin Ratio 0.8 CBC/BMP Laboratory Tests 09/18/20 05:02 Microbiology Microbiology 09/16/20 Acid Fast Stain, Received Pending 09/16/20 Mycobacterial Culture, Received Pending 09/16/20 Fungal Smear, Received Pending 09/16/20 Fungal Culture, Received Pending 09/16/20 Gram Stain - Final, Complete 09/16/20 Anaerobic Culture - Final, Complete 09/16/20 Body Fluid Culture, Received Pending 09/15/20 Gram Stain - Final, Complete 09/15/20 Wound Culture - Final, Complete Enterococcus Faecalis Yeast Like Organism 09/15/20 Blood Culture - Preliminary, Resulted No Growth after 48 hours. All Specime... 09/15/20 Blood Culture - Preliminary, Resulted No Growth after 48 hours. All Specime... Current Medications Current Medications Medications (Trade) Dose Ordered Sig/Mallorie Route PRN Reason Start Time Stop Time Status Last Admin Dose Admin Acyclovir (Zovirax) 400 mg BID PEG 09/15/20 21:00 09/18/20 08:29 Albuterol Sulfate (Proventil, Ventolin Hfa) 2 puff QID PRN INH WHEEZING 09/15/20 18:45 Alprazolam (Xanax) 0.5 mg BID PEG 09/15/20 21:00 09/18/20 08:30 Cephalexin Monohydrate (Keflex) 500 mg BID PEG 09/15/20 21:00 09/18/20 07:36 DC 09/17/20 21:28 Diatrizoate Meglum/ Diatrizoate Sod (Gastrografin) 10 ml Q30M PO 09/15/20 16:15 09/15/20 16:46 DC 09/15/20 16:15 Digoxin (Lanoxin) 0.125 mg Q2D PEG 09/16/20 09:00 09/18/20 08:30 Docusate Sodium (Colace Liquid) 100 mg BID GT 09/16/20 09:00 09/18/20 07:55 DC 09/17/20 21:27 Docusate Sodium (Colace Liquid) 100 mg BID PEG 09/18/20 09:00 09/18/20 08:30 Doxazosin Mesylate (Cardura) 1 mg QHS PEG 09/15/20 21:00 09/17/20 21:27 Enoxaparin Sodium (Lovenox) 40 mg DAILY SC 09/16/20 09:00 09/16/20 13:19 DC Famotidine (Pepcid) 20 mg DAILYPRN PRN PEG ACID REFLUX 09/15/20 18:45 Gabapentin (Neurontin) 100 mg QAM PEG 09/18/20 09:00 09/18/20 08:30 Gabapentin (Neurontin) 100 mg QAM PO 09/18/20 09:00 09/18/20 07:55 DC Guaifenesin (Robitussin) 25 ml BIDP PRN PEG CONGESTION 09/15/20 18:45 Home Med (Med Rec Complete!) ASDIRECTED XX 09/15/20 18:15 09/15/20 18:10 DC Hydroxyzine HCl (Atarax) 25 mg QIDP PRN PEG ITCHING 09/15/20 18:45 Ketorolac Tromethamine (ToRADol) 15 mg Q6H IV 09/16/20 20:00 09/21/20 19:59 09/18/20 08:31 Magnesium Hydroxide (Milk Of Magnesia) 15 ml DAILY PRN PEG CONSTIPATION 09/15/20 18:45 Metoclopramide HCl (Reglan Liquid) 10 mg QID PEG 09/15/20 21:00 09/18/20 08:30 Morphine Sulfate (Morphine Sulfate Inj) 2 mg Q6HP PRN IV SEVERE PAIN (PS 8-10) 09/17/20 15:45 09/18/20 04:15 Morphine Sulfate (Morphine Sulfate Inj) 2 mg Q6HP PRN IV SEVERE PAIN (PS 8-10) 09/15/20 18:45 09/17/20 10:21 DC 09/17/20 05:36 Morphine Sulfate (Morphine Sulfate Inj) 3 mg Q3HP PRN IV SEVERE PAIN (PS 8-10) 09/15/20 18:00 09/15/20 18:47 DC Morphine Sulfate (Morphine Sulfate Inj) 3 mg Q6HP PRN IV SEVERE PAIN (PS 8-10) 09/17/20 10:30 09/17/20 15:38 DC 09/17/20 11:34 Nystatin (Mycostatin) apply to g tube site/ okay... BID TOP 09/17/20 09:00 09/18/20 08:32 Oxycodone/ Acetaminophen (Percocet 5mg/ 325mg Tablet) 1 tab QID PO 09/15/20 21:00 09/17/20 10:20 DC 09/17/20 08:29 Oxycodone/ Acetaminophen (Percocet 5mg/ 325mg Tablet) 2 tab QID PEG 09/18/20 09:00 09/18/20 08:29 Oxycodone/ Acetaminophen (Percocet 5mg/ 325mg Tablet) 2 tab QID PO 09/17/20 13:00 09/18/20 07:55 DC 09/17/20 21:28 Prednisone (Deltasone) 5 mg DAILY PEG 09/16/20 09:00 09/18/20 08:29 Sodium Chloride 1,000 ml @ 100 mls/hr Q10H IV 09/18/20 05:15 09/18/20 07:00 DC 09/18/20 05:36 Sodium Chloride (Saline Lock Flush) 2 ml ASDIRECTED PRN IV SEE LABEL COMMENTS 09/16/20 17:00 Sodium Chloride (Saline Lock Flush) 2 ml SLF IV 09/16/20 22:00 09/18/20 04:20 Tamsulosin HCl (Flomax) 0.4 mg DAILY PO 09/16/20 09:00 09/18/20 09:03 DC 09/17/20 08:28 Terazosin HCl (Hytrin) 4 mg QHS PEG 09/18/20 21:00 Zinc Oxide (Boudreauxs Butt Paste) 1 dose BID TOP 09/15/20 21:00 09/18/20 08:32 Allergies Coded Allergies: No Known Allergies (Unverified , 06/03/20) Gay Renee MD Sep 18, 2020 12:44
--- NOTE | 2020-09-18 15:49 | CR.PDOC ---
General Date of Consultation: Sep 18, 2020 Referring Provider: Gay Renee MD Attending Physician: LIZETTE GEORGE MD Consultation Referring physician/ hospitalist: Dr. 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 He states the pain has been ongoing for the past few months. He describes the pain as a sharp knife twisting in the site of his G-tube. He states it is a 10/10 at worst. He cannot identify any aggravating or alleviating factors. He denies change in pain with tube feeding. He does note some leakage of tube feeds but otherwise no difficulty with feeding. Patient states he uses Jevity at home for intermittent feeding. He denies any blood in the G-tube. He denies any change in bowel movements but states he does not have them often. He notes his last bowel movement 4 days ago with a dark, hard stool. Patient states his pain has been persistent despite multiple pain medications, although they do help alleviate his pain somewhat. Patient has had continued weight loss since his cancer diagnosis. Patient reports his G-tube was last replaced by Dr. Lurdes calixto just 2-3 weeks ago, but this has not helped improve his pain. OFF note: Patient was also diagnosed with left sided lung collapse and suspected empyema and had Chest tube drain placed and was subsequently removed due to no drainage, and was noted to have persistent left lung collapse, suspected to be from lung malignancy. Pertinent negative GI symptoms: Patient denies nausea, vomiting, diarrhea, loss of appetite, early satiety, hematemesis, melena, or hematochezia. Review of Systems: GI: as stated above CVS: No chest pain. No palpitations. No leg swelling. RS: Positive for shortness of breath, improved after pleural effusion was drained and chronic cough. No Wheezing. HVAC TECHNICIAN: No loss of consciousness. No focal motor or sensory loss. Hematology: No easy bruising. No gum bleeding. Musculoskeletal: No joint pain. : No hematuria. No burning sensation of the urine. ENT: No ear discharge/pain. Eyes: No photophobia. Skin: No rash. Home medications: reviewed. No anticoagulants. No antiplatelets. Medical h/o: As above. Surgical h/o: Left sided chest tube/pleurX catheter in 06/2019, 08/2020, and current admission for recurrent pleural effusion, dual chamber pacemaker placed at [facility], G-tube insertion s/p dysphagia in setting of radiation induced throat injury (12/2018), G-tube replacement in 08/2020, colectomy with colostomy for diverticulitis, colostomy take down and reanastomosis, minimally invasive triple AAA repair Social h/o: Former smoker 2-3 ppd for many years, quit 5 years ago. No alcohol in the last 5 years, previously drank 2-3 six packs of beer daily when he could get them. Denies IVDA/other illicit substances. Family h/o of GI cancers - None Prior Endoscopies: Colonoscopy 2018 Dr. Bland, Percutaneous endoscopic gastrostomy tube placement 2018, and replacement in [address] Bland Prior GI evaluations: None Exam: Vitals: reviewed General: Alert and oriented x 3, not in acute distress HEENT: No pallor, no icterus. Normal oropharynx. No teeth. No cervical lymphadenopathy. Chest: Lung sounds dull on the right base, clear in the upper lung [place]. Left lung clear to auscultation. No wheezing. CVS: S1 and S2 heard, normal, no murmurs. Abdomen: G-tube present in LLQ with surrounding erythema extending about 5 cm from the insertion site and warmth, there is tenderness to palpation in this area and minimal leakage of tube feed but noted mucopurulent discharge, G tube external marker 4cm, freely movable, no evidence of bleeding from insertion site, otherwise non-distended, soft, no rigidity or guarding, normal bowel sounds auscultated. Rectal exam: Deferred at this time. Extremities: Pulses palpable, no pedal edema. HVAC TECHNICIAN: No focal motor or sensory deficits. Moves all extremities. Skin: erythematous rash around the G tube insertion site with mild mucopurulant material draining . Labs: reviewed. Imaging: reviewed. Impression: --Left upper quadrant abdominal pain, with patient pointing the pain location to Gastrostomy insertion site with localized rash -- likely from mucopurulent drainage, poor wound healing ( multifactorial), DDx-- Likely G-tube site pain from poor wound healing vs neuropathic pain from thoracic vertebral compression fracture vs less likely PUD. Recommendations: -- Continue with tube feeding as tolerated. -- SBFT was recommended, done and reviewed the results with patient. No evidence of displaced or burried bumper syndrome. -- Consider Pantoprazole 40 mg twice daily for 6-8 weeks ( to be given through the G tube, irrigator sprinkling system on empty stomach and at bedtime) -- G-tube insertion site wound dressing- 2-3 times daily with dry dressing and topical application of astringent powder. Patient is educated about the proper dressing and also to keep a protecting abdominal binder to prevent accidental pulling off of the G-tube. -- Antibiotic therapy as per primary team. -- In view of advanced malignancy and severe pain, would benefit from pain management with long acting pain medications. -- If persistent leakage from G- tube to reconsult the surgery team. Plan of care discussed with patient and primary team. Patient verbalized understanding and agreed with the plan. Vital Signs/I&O Vital Signs Date Time Temp Pulse Resp B/P (MAP) Pulse Ox O2 Delivery O2 Flow Rate FiO2 09/18/20 08:59 16 09/18/20 08:30 82 09/18/20 08:00 98.7 119/64 (82) 95 Room Air I&O- Last 24 Hours up to 6 AM 09/18/20 06:00 Intake Total 500 ml Output Total 325 ml Balance 175 ml Laboratory Data Labs 24H Laboratory Tests 2 09/18/20 05:02: Nucleated Red Blood Cells % (auto) 0.0, Immature Platelet Fraction 4.6, Anion Gap 5L, Glomerular Filtration Rate > 60.0, Calcium Level 8.4L, Total Bilirubin 0.3, Aspartate Amino Transf (AST/SGOT) 8, Alanine Aminotransferase (ALT/SGPT) 13, Alkaline Phosphatase 98, Total Protein 5.6L, Albumin 2.4L, Albumin/Globulin Ratio 0.8 CBC/BMP Laboratory Tests 09/18/20 05:02 Microbiology Microbiology 09/16/20 Acid Fast Stain, Received Pending 09/16/20 Mycobacterial Culture, Received Pending 09/16/20 Fungal Smear, Received Pending 09/16/20 Fungal Culture, Received Pending 09/16/20 Gram Stain - Final, Complete 09/16/20 Anaerobic Culture - Final, Complete 09/16/20 Body Fluid Culture, Received Pending 09/15/20 Gram Stain - Final, Complete 09/15/20 Wound Culture - Final, Complete Enterococcus Faecalis Yeast Like Organism 09/15/20 Blood Culture - Preliminary, Resulted No Growth after 48 hours. All Specime... 09/15/20 Blood Culture - Preliminary, Resulted No Growth after 48 hours. All Specime... Allergies Coded Allergies: No Known Allergies (Unverified , 06/03/20) Home Medications Scheduled Acyclovir (Acyclovir) 400 Mg Tablet, 400 MG PEG BID, (Reported) Alprazolam (Alprazolam) 0.5 Mg Tablet, 0.5 MG PEG BID, (Reported) Digoxin (Digoxin) 125 Mcg Tablet, 125 MCG PEG Q2D, (Reported) Docusate Sodium (Docu Liquid) 50 Mg/5 Ml Liquid, 100 MG PEG BID for 14 Days, #140 Doxazosin Mesylate (Doxazosin Mesylate) 1 Mg Tablet, 1 MG PEG QHS, (Reported) Gabapentin (Gabapentin) 100 Mg Capsule, 100 MG PEG QAM for 14 Days, #14 Lactose-Reduced Food/Fiber (Jevity 1.2 Lazaro Liquid) 237 Ml Liquid, 1 LIQ PEG QID, (Reported) TAKES 3 TO 4 TIMES DAILY DEPENDING ON HOW STOMACH FEELS Metoclopramide HCl (Metoclopramide HCl) 10 Mg/10 Ml Solution, 10 MG PEG QID, (Reported) Nystatin (Nystatin) 15 Gm Oint...g., 1 DOSE TOP BID for 14 Days, #1 Apply to area around G tube site Oxycodone HCl/Acetaminophen (Percocet 5-325 mg Tablet) 1 Each Tablet, 2 TAB PO QID for 7 Days, #28 Polyethylene Glycol 3350 (Polyethylene Glycol 3350) 17 Gm Powd.pack, 1 PKT PEG BID for 14 Days, #28 Stop if >2 Bowel movements per day Prednisone (Prednisone) 5 Mg Tablet, 5 MG PEG DAILY, (Reported) Tamsulosin HCl (Flomax) 0.4 Mg Capsule, 0.4 MG PEG DAILY, (Reported) Zinc Oxide (Boudreauxs) 16% Oint...g., 1 DOSE TOP BID for 30 Days, #1 Apply to area around G tube site [Omeprazole Suspension] 20 MG/10 ML [place], 20 MG PEG BID for 30 Days, #300 Scheduled PRN Albuterol Sulfate (Albuterol Sulfate Hfa) 8.5 Gm Hfa.aer.ad, 2 PUFF INH QID PRN for WHEEZING, (Reported) Guaifenesin (Guaifenesin) 100 Mg/5 Ml Liquid, 25 ML PEG BID PRN for CONGESTION, (Reported) Hydroxyzine Pamoate (Hydroxyzine Pamoate) 25 Mg Capsule, 25 MG PEG QID PRN for ITCHING, (Reported) Magnesium Hydroxide (Milk of Magnesia) 400 Mg/5 Ml Oral.susp, 15 ML PEG DAILY PRN for CONSTIPATION, (Reported) SHIRAZ AGUSTIN D.O. Sep 18, 2020 13:09 LIZETTE GEORGE MD Sep 20, 2020 16:13
[2020-09-18 16:00] VITALS: BP 102/56
--- NOTE | 2020-09-18 17:32 | REP ---
INDICATION: abd pain, contrast throught G tube. COMPARISON: None. TECHNIQUE: The procedure was performed under the direct supervision of Dr. Lynn. The images were reviewed with Dr. Lynn. The coil connector repairer film shows normal organomegaly or pathological mass is. The bowel gas pattern is nonspecific. There is residual barium in the colon from a previous Gastrografin study. The patient is status post aortic stent graft. There is a G-tube in place. Liquid barium was administered through the G-tube and the barium column was followed through the small bowel to the level of the terminal ileum. 1 minutes of fluoro time was utilized for this procedure. FINDINGS: Small bowel transit time is approximately 2 hours and 20 minutes. During fluoroscopy gentle palpation shows all loops are freely movable and pliable. There are no fixed or angulated loops. The small bowel mucosal pattern is normal in course and caliber. There is no transition to suggest a partial small bowel obstruction. Spot filming of the terminal ileum shows it to be unremarkable. IMPRESSION: Small bowel follow-through examination within normal limits. <Electronically signed by Leon Williamson > 09/18/20 1702 <Electronically signed by Ankit Lynn > 09/18/20 [id number]
[2020-09-18 20:00] VITALS: BP 111/57
[2020-09-18] MEDS ORDERED: TERAZOSIN 1 MG CAP PEG SCH (21:00)
[2020-09-18] MEDS ORDERED: OMEPRAZOLE 20 MG CAP XX SCH (21:00)
[2020-09-18] MEDS ORDERED: MIRALAX *UNIT DOSE* 17GM PACKET PO SCH (21:00)
[2020-09-18] MEDS ORDERED: PANTOPRAZOLE 40MG TAB (PROTONIX) PO SCH (21:00)
[2020-09-18] MEDS: OMEPRAZOLE SUSPENSION 20MG 10ML ORAL SYRINGE PEG SCH (21:02)
[2020-09-18] MEDS: MIRALAX *UNIT DOSE* 17GM PACKET PEG SCH (21:02)
[2020-09-18 21:03] VITALS: BP 111/57
[2020-09-18] MEDS: DOXAZOSIN MESYLATE 1 MG TAB PEG SCH (21:03)
[2020-09-19] VITALS: BP 95/52
[2020-09-19] MEDS: MORPHINE 2 MG/ML 1ML VIAL (J2270) IV PRN ×2 (01:14→06:46)
[2020-09-19] MEDS: KETOROLAC 30 MG/ML 1ML VIAL IV SCH ×2 (02:59→08:39)
[2020-09-19 04:00] VITALS: BP 94/55
[2020-09-19 04:57] LABS: HEMATOCRIT 29.1 % (42.0-52.0); HEMOGLOBIN 8.4 g/dl (13.5-17.5); MEAN CORPUSCULAR HGB CONC 28.9 g/dl (32.0-36.5); MEAN CORPUSCULAR VOLUME 100.3 fl (80.0-96.0); WHITE BLOOD COUNT 3.6 10^3/uL (4.0-10.0)
[2020-09-19 05:03] LABS: PLATELET COUNT, AUTOMATED 99 10^3/uL (150-450)
[2020-09-19 05:19] LABS: ALBUMIN 2.3 GM/DL (3.2-5.2); ALT/SGPT 15 U/L (12-78); BILIRUBIN,TOTAL 0.3 MG/DL (0.2-1.0); BLOOD UREA NITROGEN 29 MG/DL (7-18); CARBON DIOXIDE LEVEL 32 MEQ/L (21-32); CHLORIDE LEVEL 107 MEQ/L (98-107); CREATININE FOR GFR 0.77 MG/DL (0.70-1.30); GLOMERULAR FILTRATION RATE > 60.0 (>42); GLUCOSE, FASTING 94 MG/DL (70-100); SODIUM LEVEL 144 MEQ/L (136-145); TOTAL PROTEIN 5.5 GM/DL (6.4-8.2)
[2020-09-19] MEDS: SLF 3 ML SYR IV SCH (06:10)
[2020-09-19 08:00] VITALS: BP 114/59
[2020-09-19] MEDS ORDERED: PERC5TAB12 PO (08:04)
[2020-09-19] MEDS ORDERED: GABA-1171 PEG (08:04)
[2020-09-19] MEDS ORDERED: DOCU10ELUD PEG (08:04)
[2020-09-19] MEDS ORDERED: PEG1POW PEG (08:04)
[2020-09-19] MEDS ORDERED: NYST10OI TOP (08:04)
[2020-09-19] MEDS ORDERED: Omeprazole Suspension PEG (08:04)
[2020-09-19] MEDS ORDERED: BOUDPST TOP (08:04)
[2020-09-19] MEDS: DOCUSATE SOD LIQ 100MG/10ML UDC PEG SCH (08:37)
[2020-09-19] MEDS: MIRALAX *UNIT DOSE* 17GM PACKET PEG SCH (08:37)
[2020-09-19] MEDS: METOCLOPRAMIDE HCL LIQUID 10 MG/10 ML UDC PEG SCH (08:37)
[2020-09-19] MEDS: OMEPRAZOLE SUSPENSION 20MG 10ML ORAL SYRINGE PEG SCH (08:38)
[2020-09-19] MEDS: predniSONE 5 MG TAB PEG SCH (08:39)
[2020-09-19] MEDS: PERCOCET 5MG/325MG TAB PEG SCH (08:39)
[2020-09-19] MEDS: ACYCLOVIR 200 MG CAPSULE PEG SCH (08:39)
[2020-09-19] MEDS: ALPRAZolam 0.5 MG TAB PEG SCH (08:39)
[2020-09-19] MEDS: NYSTATIN OINTMENT 15 GM TOP SCH (08:40)
[2020-09-19] MEDS: BOUDREAUX'S BUTT PASTE TOP SCH (08:40)
[2020-09-19] MEDS: GABAPENTIN 100 MG CAP PEG SCH (08:40)
[2020-09-19] MEDS ORDERED: ENOXAPARIN 40MG/0.4ML SYRINGE (J1650 PER 10MG) SC SCH (09:00)
--- NOTE | 2020-09-19 16:07 | DS.PDOC ---
Discharge Summary General Date of Admission Sep 15, 2020 at 17:46 Date of Discharge 09/19/20 Attending Physician: Gay Renee MD Discharge Summary HISTORY OF PRESENT ILLNESS: Patient is a 79 y/o M with complicated PMH of T3-T6 compression fractures, chronic pain, radiation esophagitis, dysphagia, multiple G tube leaks with multiple exchanges of tubes in the past several months who presented to [facility] ED with chief complaint of recent abdominal pain. The patient states the pain was right lower quadrant and was also complaining of severe pain around the entrance of the G-tube in the left lower quadrant. As been present for 56 days and worsening. He is also noted increased leaking around the entrance of the G-tube with his tube feedings. Patient had a recent admission in August 2020 for leaking G-tube. There were multiple exchanges of the G-tube during her hospital stay and a GJ tube was unable to be placed by interventional radiology. Dr. Bland (general surgery) has been following the patient and his well versed in his history. There was talk of doing a GJ tube placement via general surgery that hospitalization; however, the G-tube was functioning without any issues and the patient was later discharged home to follow-up as outpatient for tube replacement. The patient admits to increased weakness but denies nausea, vomiting, fevers, chills, diarrhea. In the emergency room, the patient describes abdominal pain as 8 out of 10, constant. He received 7 mg of IV morphine. Abdominal x-ray showed a PEG tube in proper position. CT abdomen and pelvis was pending. On exam the skin around the entrance of the G-tube was extremely reddened and tender, similar to what it looked like on prior admission; however, worsened. The patient was admitted for further workup of abdominal pain, leaking G-tube. HOSPITAL COURSE: Due to stage IIIB non small cell lung cancer patient has had recurrent right lung loculated effusion. He has required drainage in the past. Due to complaining of some right side chest pain and concern for this possibly being "referred pain" from there to the abdomen, CT surgery was consulted. Pigtail placed on 09/16/20 taken out 09/17/20, pleural fluid showed to be mildly exudative but likely mostly malignant. Lung entrapment present and, according to CT surgery, this would be present indefinetly, drainage may be needing to be done again in future. He did not suspect referred pain to abdomen from loculated effusion. For his abdominal pain, chronic and intermittent this is likely 2/2 to cutaneous pain 2/2 to raw/reddened area around G tube and possibly PUD. GJ tube was opted against by surgery since his current G tube functioned appropriately this stay. GI was consulted. WBC wnl, lactic acid wnl. Not thought to be gastric emptying issue, SB XR with contrast showed no abnormalities. He's also had recent endoscopy which did not show acute or chronic issue. He had no residuals with feeding here and there was no leaking noted this hospital stay. US abd: showed no high grade stenosis of vessels. ABXR: above. Palliative care consulted and had given suggestions for chronic pain management. He was not open to meeting with her or taking suggestions she had to give. If he should change his mind, he does have her business card. I increased percocet to 2 tabs QID and this seemed to help with pain more than just 1 tab. Please refer to palliative care not for suggestions made by their service. I also started on low does gabapentin, can increase if needed by O/p PCP. Discussed switching to fentanyl patch + percocet PRN which also would work but he did not wish to do so. His son and HCP/caregiver was updated thoroughly prior to his discharge. It is advised that he find a pain management provider/palliative care to help manage his chronic pain issues as o/p otherwise he will continue to return for the same issues in the future. At time of discharge, he had no acute complaints and pain was controlled. 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 Bradycardia with a pacemaker. BPH GERD COPD Dysphagia PAST SURGICAL HISTORY: Left sided chest tube/pleurX catheter in 06/2019 for recurrent pleural effusion Dual chamber Pacemaker placed at [facility] G-tube insertion s/p dysphagia in setting of radiation induced throat injury (12/2018) G tube replacement in 08/2020 Colectomy with colostomy, colostomy take down and reanastomosis. AAA repair SOCIAL HISTORY: Lives at home with his son who he is dependent on, previous 2PPD smoker, quit 5 years ago. Has not drank in the last 5 years since head/neck cancer diagnosis. No illicit drugs. FAMILY HISTORY: Mother w/ brain aneurysm Brother with lung cancer ALLERGIES: Please see below. DISCHARGE MEDICATIONS: Please see below. PHYSICAL EXAMINATION: VITAL SIGNS: See below GENERAL: Cachectic, resting in bed . AAOx 3 HEENT: NC, AT, EOMI, no scleral icterus, moist mucous membranes NECK: No cervical or supraclavicular lymphadenopathy. No JVD. CARDIOVASCULAR: RRR, normal S1 and S2. No murmurs, gallops, rubs. LUNGS:decreased BS up to mid-lung on right lung, CTAB on right lung, no W/R/R. Posterior right lung incision healing well ABDOMEN: Soft, non-tender, non-distended, bowel sounds present. No hepatosplenomegaly. No masses or eccymosis. No CVA tenderness. G tube in place in left abdominal wall . EXTREMITIES: No swelling or edema SKIN: Multiple raised, stuck on brown-yellow plaques along anterior chest. Surrounding area of feeding tube is very erythematous,mildly tender NEUROLOGICAL: No focal or sensory deficits. CN II-XII grossly intact. LABORATORY DATA: See below. MICROBIOLOGY: BCx x 2 sets: NG Pleural fluid Cx: NG Wound GS from around G tube: NO CELLS SEEN, NO ORGANISMS SEEN Wound Cx from around G tube: Organism 1 ENTEROCOCCUS FAECALIS, Organism 2 YEAST LIKE ORGANISM IMAGING: SB follow through, XR with contrast: pending Abdominal Doppler ultrasound 09/17/20: Limited p.o. intake but normal velocity response to meal initially. No Doppler evidence of high-grade stenosis. ABdXR: peg tube in good position CT abd/pelvis: 1. Large loculation of the fluid at the right lung base has mildly increased. 2. Graft within the abdominal aortic aneurysm appears intact and opacifies. There is severe atherosclerotic plaque of the SMA ASSESSMENT: Patient is a 79 year old male with a history of soft palate neck cancer and not fully treated lung cancer admitted for severe abdominal pain, leaking G tube. PLAN: Abdominal pain, chronic and intermittent. Likely multifactorial (and different types of pain) to 1. PUD, 2. reddened area around G tube, 3. possibly G tube itself at times, 4. intermittent sharp pains 2/2 to unknown cause (not believed to gastroparesis, delay in gastric emptying, referred pain from chest) -WBC wnl, lactic acid wnl. -US abd: showed no high grade stenosis of vessels -ABXR: above -Also, watched PEG tube and feedings closely to see if associated with incr pain -Dr. Bland (general surgery) followed, GI was consulted -Started PPI BID, bowel regimen per GI -Palliative care consulted and have given suggestions for chronic pain management. Was not receptive. He has business card if he changes his mind. Strongly suggest he find provider to manage chronic pain issues as o/p as these will not likely go away Chronic pain from 1. many issues mentioned above, 2. chronic low back pain 3. neuropathic pain from hx of shingles on right flank -Increased percocet to 2 tabs QID, started gabapentin 100 mg PO daily- can increase as o/p -Discussed switching to fentanyl patch + percocet PRN which also would work. -Refer to palliative care note, suggestions above Stage IIIB non small cell lung cancer with recurrent loculated effusion right -Right loculated effusion present, hx of draining in past by Dr. Howell. Pigtail placed on 09/16/20 taken out 09/17/20, pleural fluid showed to be mildly exudative but likely mostly malignant. Lung entrapment present -Previously on chemo but no treatment since 2019 -Patient is no longer interested in treatment and stop seeking treatment about a year ago. -Per CT surgery, this lung will likely not expand with cancer that is present. Pigtail removed. Fluid may reaccumulate and need to be drained in future. -This is not thought to be cause of abdominal pain. G-tube issues -Minimal residuals, no leaking around tube noticed here -Replaced on 08/21/20 -GJ conversion was not able to be done, discussed with both Dr. Bland and Dr. Hancock on last admission -when patient was discharged, plan was likely to be needing to replace as o/p -Has been tolerating feedings well here per surgery, no plans on changing tube -F/u surgery as o/p T3-T6 compression fractures with chronic back pain -Ortho had seen last admission, recommend WBAT and to f/u after discharge with spine surgeon, no emergent need -C/w plan above ELLIOT, chronic -H/h slightly lower but has been on and off iVFs which can be dilutional -No s/s of bleeding -C/w iron supplementation -CBC daily -Transfuse if <8 Hgb Thrombocytopenia, chronic -Since 2018 -Watch while on enoxaparin, stop if worsens -Monitor CBC daily Deconditioning, acute on chronic 09/08 to compression fractures above -Chronic illness -PT/OT -Nutritional optimization Hypertensive heart disease -Stable Bradycardia with a pacemaker. -Stable BPH - flomax Anxiety -C/w xanax, hydroxyzine GERD - famotidine # COPD -Stable -Continue home albuterol DISPOSITION: D/c home today to f/u with PCP, surgery TIME SPENT ON DISCHARGE: 40 minutes. Vital Signs/I&Os Vital Signs Date Time Temp Pulse Resp B/P (MAP) Pulse Ox O2 Delivery O2 Flow Rate FiO2 09/19/20 09:09 17 09/19/20 08:00 114/59 (77) 09/19/20 06:57 96 Room Air 09/19/20 04:00 97.2 77 I&O- Last 24 Hours up to 6 AM 09/19/20 05:59 Intake Total 540 ml Output Total 250 ml Balance 290 ml Laboratory Data Labs 24H Laboratory Tests 2 09/19/20 04:41: Nucleated Red Blood Cells % (auto) 0.0, Anion Gap 5L, Glomerular Filtration Rate > 60.0, Calcium Level 8.0L, Total Bilirubin 0.3, Aspartate Amino Transf (AST/SGOT) 8, Alanine Aminotransferase (ALT/SGPT) 15, Alkaline Phosphatase 95, Total Protein 5.5L, Albumin 2.3L, Albumin/Globulin Ratio 0.7 CBC/BMP Laboratory Tests 09/19/20 04:41 Microbiology Microbiology 09/16/20 Acid Fast Stain, Received Pending 09/16/20 Mycobacterial Culture, Received Pending 09/16/20 Fungal Smear, Received Pending 09/16/20 Fungal Culture, Received Pending 09/16/20 Gram Stain - Final, Complete 09/16/20 Anaerobic Culture - Final, Complete 09/16/20 Body Fluid Culture - Final, Complete Staphylococcus Epidermidis 09/15/20 Gram Stain - Final, Complete 09/15/20 Wound Culture - Final, Complete Enterococcus Faecalis Yeast Like Organism 09/15/20 Blood Culture - Preliminary, Resulted No Growth after 72 hours. All specime... 09/15/20 Blood Culture - Preliminary, Resulted No Growth after 72 hours. All specime... Discharge Medications Scheduled Acyclovir (Acyclovir) 400 Mg Tablet, 400 MG PEG BID, (Reported) Alprazolam (Alprazolam) 0.5 Mg Tablet, 0.5 MG PEG BID, (Reported) Digoxin (Digoxin) 125 Mcg Tablet, 125 MCG PEG Q2D, (Reported) Docusate Sodium (Docu Liquid) 50 Mg/5 Ml Liquid, 100 MG PEG BID Doxazosin Mesylate (Doxazosin Mesylate) 1 Mg Tablet, 1 MG PEG QHS, (Reported) Gabapentin (Gabapentin) 100 Mg Capsule, 100 MG PEG QAM Lactose-Reduced Food/Fiber (Jevity 1.2 Lazaro Liquid) 237 Ml Liquid, 1 LIQ PEG QID, (Reported) TAKES 3 TO 4 TIMES DAILY DEPENDING ON HOW STOMACH FEELS Metoclopramide HCl (Metoclopramide HCl) 10 Mg/10 Ml Solution, 10 MG PEG QID, (Reported) Nystatin (Nystatin) 15 Gm Oint...g., 1 DOSE TOP BID Apply to area around G tube site Oxycodone HCl/Acetaminophen (Percocet 5-325 mg Tablet) 1 Each Tablet, 2 TAB PO QID Polyethylene Glycol 3350 (Polyethylene Glycol 3350) 17 Gm Powd.pack, 1 PKT PEG BID Stop if >2 Bowel movements per day Prednisone (Prednisone) 5 Mg Tablet, 5 MG PEG DAILY, (Reported) Tamsulosin HCl (Flomax) 0.4 Mg Capsule, 0.4 MG PEG DAILY, (Reported) Zinc Oxide (Boudreauxs) 16% Oint...g., 1 DOSE TOP BID Apply to area around G tube site [Omeprazole Suspension] 20 MG/10 ML [place], 20 MG PEG BID Scheduled PRN Albuterol Sulfate (Albuterol Sulfate Hfa) 8.5 Gm Hfa.aer.ad, 2 PUFF INH QID PRN for WHEEZING, (Reported) Guaifenesin (Guaifenesin) 100 Mg/5 Ml Liquid, 25 ML PEG BID PRN for CONGESTION, (Reported) Hydroxyzine Pamoate (Hydroxyzine Pamoate) 25 Mg Capsule, 25 MG PEG QID PRN for ITCHING, (Reported) Magnesium Hydroxide (Milk of Magnesia) 400 Mg/5 Ml Oral.susp, 15 ML PEG DAILY PRN for CONSTIPATION, (Reported) Allergies Coded Allergies: No Known Allergies (Unverified , 06/03/20) Gay Renee MD Sep 19, 2020 16:07
== END 2020-09-19 17:30 | disposition hospice, home (50) | DRG 394 ==
LOC: M ED 14:05 → M ED INP 17:46 → ENRESERV 19:29 → M MSPAV 20:35 → M PCU 09-16 14:12
PROVIDERS: ADMIT Internal Medicine; ATTEND Internal Medicine
PROC: 0W993ZX Drainage of Right Pleural Cavity, Percutaneous Approach, Diagnostic (ICD-10-PCS; 2020-09-16)
PROC: 0W9930Z Drainage of Right Pleural Cavity with Drainage Device, Percutaneous Approach (ICD-10-PCS; principal; 2020-09-16 16:00)
DX: K94.29 Other complications of gastrostomy (principal); C34.32 Malignant neoplasm of lower lobe, left bronchus or lung; R64 Cachexia; J90 Pleural effusion, not elsewhere classified; B02.29 Other postherpetic nervous system involvement; K20.80 Other esophagitis without bleeding; I25.2 Old myocardial infarction; I11.9 Hypertensive heart disease without heart failure; D50.9 Iron deficiency anemia, unspecified; R00.1 Bradycardia, unspecified; N40.0 Benign prostatic hyperplasia without lower urinary tract symptoms; M48.54XD Collapsed vertebra, not elsewhere classified, thoracic region, subsequent encounter for fracture with routine healing; F41.9 Anxiety disorder, unspecified; D69.6 Thrombocytopenia, unspecified; K21.9 Gastro-esophageal reflux disease without esophagitis; J44.9 Chronic obstructive pulmonary disease, unspecified; K27.9 Peptic ulcer, site unspecified, unspecified as acute or chronic, without hemorrhage or perforation; R13.10 Dysphagia, unspecified; Z92.3 Personal history of irradiation; Z90.49 Acquired absence of other specified parts of digestive tract; Z85.818 Personal history of malignant neoplasm of other sites of lip, oral cavity, and pharynx; Z95.0 Presence of cardiac pacemaker; Y83.3 Surgical operation with formation of external stoma as the cause of abnormal reaction of the patient, or of later complication, without mention of misadventure at the time of the procedure; Z98.0 Intestinal bypass and anastomosis status; Z87.891 Personal history of nicotine dependence; Z79.52 Long term (current) use of systemic steroids; Z79.891 Long term (current) use of opiate analgesic; Z79.899 Other long term (current) drug therapy

== ENCOUNTER 2020-10-08 13:58 | Emergency (ER) | payer MEDICARE ==
[~2020-10-08] VITALS: Ht 175.3 cm; Wt 49.1 kg
[~2020-10-08 13:58] MED LIST changes: +ASPI-569 PO; -ASPI81TAEC PO; +BOUDPST TOP; +DOCU10ELUD PEG; +GABA-1171 PEG; +NYST10OI TOP; +Omeprazole Suspension PEG; +POLY17PO18 PEG
[2020-10-08] MEDS ORDERED: MORPHINE 4 MG/ML 1ML VIAL/SYRINGE (J2270) IM ONE (15:15)
[2020-10-08] MEDS ORDERED: GASTROGRAFIN SOLUTION 30ML (Q9963) PO STA (16:10)
[2020-10-08 16:15] VITALS: BP 113/66
--- NOTE | 2020-10-08 16:40 | REP ---
INDICATION: assess for G-tube placement COMPARISON: None. TECHNIQUE: Supine view of the abdomen and pelvis. FINDINGS: A percutaneous gastrostomy tube is identified in the left mid abdomen and oral contrast is identified within the stomach and without evidence for extravasation. The bowel gas pattern is otherwise unremarkable. Aortoiliac stents noted. Skeletal structures demonstrate osteopenia and degenerative changes. IMPRESSION: Percutaneous gastrostomy in seemingly satisfactory position. No evidence for contrast extravasation. <Electronically signed by Dante Wright > 10/08/20 [id number]
[2020-10-08] MEDS ORDERED: PERCOCET 5MG/325MG TAB PEG ONE (16:50)
== END 2020-10-08 17:14 | disposition home or self-care (01) ==
LOC: M ED 13:58
DX: K94.23 Gastrostomy malfunction (principal); Z87.891 Personal history of nicotine dependence; Z85.038 Personal history of other malignant neoplasm of large intestine; Z90.49 Acquired absence of other specified parts of digestive tract
CPT/HCPCS: 43762; 74018; 99284; Q9963

== ENCOUNTER 2020-10-11 13:54 | Emergency (ER) | payer MEDICARE ==
[~2020-10-11] VITALS: Ht 175.3 cm; Wt 47.7 kg
[2020-10-11] MEDS ORDERED: NS 1,000 ML IV SCH (14:35)
[2020-10-11] MEDS ORDERED: IPRATROPIUM 0.5MG/ALBUTEROL 2.5MG INH SOL UD 3ML (DUONEB) NEB ONE (14:40)
[2020-10-11] MEDS ORDERED: ALBUTEROL SULFATE 2.5 MG/0.5 ML INH NEB SOLN INH ONE (14:40)
[2020-10-11] MEDS ORDERED: methylPREDNISolone 125MG 2ML VIAL IV ONE (14:40)
--- NOTE | 2020-10-11 15:23 | REP ---
INDICATION: abdl pain COMPARISON: 09/17/2020 TECHNIQUE: Portable AP view of the chest FINDINGS: Right-sided pleuroparenchymal changes appear relatively stable compared to 09/17/2020. Chronic left-sided interstitial changes and subtle opacity at the left base are also relatively stable. Visualized portions of the mediastinum and cardiac silhouette are stable. Skeletal structures are grossly intact. IMPRESSION: Chronic stable pleuroparenchymal changes as compared with 09/17/2020. <Electronically signed by Dante Wright > 10/11/20 1880
[2020-10-11 15:43] LABS: BASO % 0.6 % (0.0-1.0); EOS % 0.6 % (0.0-3.0); HEMATOCRIT 31.8 % (42.0-52.0); HEMOGLOBIN 9.2 g/dl (13.5-17.5); LYMPH # 0.6 10^3/uL (1.5-5.0); LYMPH % 16.7 % (24.0-44.0); MEAN CORPUSCULAR HEMOGLOBIN 29.7 pg (27.0-33.0); MEAN CORPUSCULAR HGB CONC 28.9 g/dl (32.0-36.5); MEAN CORPUSCULAR VOLUME 102.6 fl (80.0-96.0); MONO # 0.3 10^3/uL (0.0-0.8); MONO % 7.4 % (2.0-8.0); NEUTROPHILS # 2.5 10^3/uL (1.5-8.5); NEUTROPHILS % 74.1 % (36.0-66.0); WHITE BLOOD COUNT 3.4 10^3/uL (4.0-10.0)
[2020-10-11 15:45] LABS: PLATELET COUNT, AUTOMATED 72 10^3/uL (150-450)
[2020-10-11 15:53] LABS: INR 1.09; PROTHROMBIN TIME 14.3 SECONDS (12.5-14.3)
[2020-10-11 16:19] LABS: ALBUMIN 2.7 GM/DL (3.2-5.2); ALT/SGPT 15 U/L (12-78); AMYLASE 34 U/L (25-115); BILIRUBIN,DIRECT 0.2 MG/DL (0.0-0.2); BILIRUBIN,TOTAL 0.3 MG/DL (0.2-1.0); BLOOD UREA NITROGEN 19 MG/DL (7-18); CARBON DIOXIDE LEVEL 33 MEQ/L (21-32); CHLORIDE LEVEL 107 MEQ/L (98-107); CK-MB VALUE MASS < 1.0 NG/ML (<3.6); CPK CREATINE PHOSPHOKINASE 18 U/L (39-308); CREATININE FOR GFR 0.85 MG/DL (0.70-1.30); GLOMERULAR FILTRATION RATE > 60.0 (>42); GLUCOSE, FASTING 87 MG/DL (70-100); LIPASE 87 U/L (73-393); MB/CK RELATIVE INDEX 5.56 (< OR =4); NT-PRO BNP 914 PG/ML (<450); POTASSIUM SERUM 3.9 MEQ/L (3.5-5.1); SODIUM LEVEL 143 MEQ/L (136-145); TROPONIN I < 0.02 NG/ML (< 0.10)
[2020-10-11] MEDS ORDERED: ISOVUE-370 76% 100ML VIAL As Ordered ONE (17:49)
--- NOTE | 2020-10-11 18:14 | REPVR ---
PROCEDURE INFORMATION: Exam: CT Abdomen And Pelvis With Contrast Exam date and time: 10/11/2020 5:49 PM Age: 79 years old Clinical indication: Abdominal pain; Additional info: SOB and luq pain TECHNIQUE: Imaging protocol: Computed tomography of the abdomen and pelvis with contrast. Radiation optimization: All CT scans at this facility use at least one of these dose optimization techniques: automated exposure control; mA and/or kV adjustment per patient size (includes targeted exams where dose is matched to clinical indication); or iterative reconstruction. Contrast material: ISOVUE 370; Contrast volume: 100 ml; Contrast route: INTRAVENOUS (IV); COMPARISON: CT ABD/PEL W/IV CONTRAST ONLY 08/17/2020 6:00 PM FINDINGS: Tubes, catheters and devices: Feeding gastrostomy tube demonstrated. Liver: There is a diffuse decrease in hepatic parenchymal density, consistent with steatosis. Gallbladder and bile ducts: Cholelithiasis or aggregates of sludge demonstrated within the lumen of an otherwise unremarkable appearing gallbladder. Pancreas: Normal. No ductal dilation. Spleen: Normal. No splenomegaly. Adrenal glands: Normal. No mass. Kidneys and ureters: 2.2 cm simple cyst left kidney. Stomach and bowel: There is increased feces throughout the colon consistent with constipation. Appendix: No evidence of appendicitis. Intraperitoneal space: There is a small amount of free intraperitoneal fluid present. Vasculature: Status post placement of a bifurcating endograft within the aorta. No evidence of a graft leak. Proximal and distal anastomoses appear unremarkable. Lymph nodes: Unremarkable. No enlarged lymph nodes. Urinary bladder: Unremarkable as visualized. Reproductive: The prostate gland demonstrates moderate hyperplasia. Bones/joints: Moderate central spinal stenosis L4-L5. Soft tissues: Unremarkable. Other findings: Osteoporosis. IMPRESSION: 1. There is a diffuse decrease in hepatic parenchymal density, consistent with steatosis. 2. Cholelithiasis or aggregates of sludge demonstrated within the lumen of an otherwise unremarkable appearing gallbladder. 3. There is a small amount of free intraperitoneal fluid present. 4. Moderate prostatic hyperplasia. 5. There is increased feces throughout the colon consistent with constipation. COMMENTS: Consistent with the [employer]'s Incidental Findings Committee white paper (J Am Arley Radiol 2018): Any incidental renal lesion less than 1 cm or classified as too small to characterize, or any incidental cystic renal lesion characterized as simple-appearing, is likely benign. No follow-up imaging is recommended for these lesions per consensus recommendations based on imaging criteria. Electronically signed by: Navi Ayala On 10/11/2020 18:15:21 PM
--- NOTE | 2020-10-11 18:23 | REPVR ---
PROCEDURE INFORMATION: Exam: CT Angiography Chest With Contrast Exam date and time: 10/11/2020 5:49 PM Age: 79 years old Clinical indication: Shortness of breath; Additional info: SOB TECHNIQUE: Imaging protocol: Computed tomographic angiography of the chest with contrast. 3D rendering (Not supervised by radiologist): MIP and/or 3D reconstructed images were created by the technologist. Radiation optimization: All CT scans at this facility use at least one of these dose optimization techniques: automated exposure control; mA and/or kV adjustment per patient size (includes targeted exams where dose is matched to clinical indication); or iterative reconstruction. Contrast material: ISOVUE 370; Contrast volume: 100 ml; Contrast route: INTRAVENOUS (IV); COMPARISON: CT ANGIO CHEST 08/17/2020 6:00 PM FINDINGS: Pulmonary arteries: Absent intralobar pulmonary artery on right consistent with prior surgery. No pulmonary emboli. Aorta: There is fusiform dilatation of the ascending thoracic aorta which measures 3.9 cm. maximally. Diffuse aortic ectasia. There is no dissection or saccular component. Lungs: Right apical pleuroparenchymal scarring. Moderate paraseptal and centrilobular emphysematous changes most pronounced in the mid and upper lung zones. Extensive tubular bronchiectasis in the hyperexpanded right middle lobe. Parenchymal scarring/atelectasis left lower lobe. Multiple large subpleural blebs in the right upper lobe. Marked volume loss in the right hemithorax secondary to prior right lower lobectomy. Pleural spaces: Large loculated hydropneumothorax on the right. Heart: There is moderate atherosclerotic calcification of the coronary arteries. Lymph nodes: Unremarkable. No enlarged lymph nodes. Bones/joints: Unremarkable. No acute fracture. Soft tissues: Unremarkable. IMPRESSION: 1. Large loculated hydropneumothorax on the right. 2. Extensive tubular bronchiectasis in the hyperexpanded right middle lobe. 3. There is fusiform dilatation of the ascending thoracic aorta which measures 3.9 cm. maximally. Diffuse aortic ectasia. There is no dissection or saccular component. 4. Absent intralobar pulmonary artery on right consistent with prior surgery. No pulmonary emboli. 5. Emphysematous changes as described above. Electronically signed by: Navi Ayala On 10/11/2020 18:23:30 PM
[2020-10-11] MEDS ORDERED: FLEET ENEMA PR STA (18:53)
[2020-10-11] MEDS ORDERED: BISACODYL 10 MG SUPP PR ONE (18:55)
[2020-10-11] MEDS ORDERED: PRED20TA PO (19:13)
[2020-10-11 19:22] VITALS: BP 131/88
--- NOTE | 2020-10-12 07:26 | ECGEPIP ---
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
--- NOTE | 2020-10-12 07:27 | ECGEPIP ---
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
--- NOTE | 2020-10-13 10:40 | ED PDOC ---
Post-Departure Follow-Up dr kuhn and dr garcia faxed formal report of cta chest for fu Josefina Christie MD Oct 13, 2020 10:40
== END 2020-10-11 19:40 | disposition home or self-care (01) ==
LOC: M ED 13:54
DX: J44.1 Chronic obstructive pulmonary disease with (acute) exacerbation (principal); K59.00 Constipation, unspecified; T81.30XA Disruption of wound, unspecified, initial encounter; C34.91 Malignant neoplasm of unspecified part of right bronchus or lung; I11.9 Hypertensive heart disease without heart failure; Z79.51 Long term (current) use of inhaled steroids; Z79.52 Long term (current) use of systemic steroids; Z79.899 Other long term (current) drug therapy; Z86.79 Personal history of other diseases of the circulatory system; Z87.898 Personal history of other specified conditions; Z90.49 Acquired absence of other specified parts of digestive tract

== ENCOUNTER 2020-10-14 07:05 | Inpatient (IN) | payer MEDICARE ==
[~2020-10-14] VITALS: Ht 175.3 cm; Wt 52.3 kg
[~2020-10-14 07:05] MED LIST changes: +PRED20TA PO
[2020-10-14] MEDS: MORPHINE 2 MG/ML 1ML VIAL (J2270) IV PRN ×2 (08:06→09:46)
[2020-10-14 08:11] LABS: HEMATOCRIT 35.8 % (42.0-52.0); HEMOGLOBIN 10.6 g/dl (13.5-17.5); LYMPH # 0.4 10^3/uL (1.5-5.0); LYMPH % 10.2 % (24.0-44.0); MEAN CORPUSCULAR HEMOGLOBIN 30.1 pg (27.0-33.0); MEAN CORPUSCULAR HGB CONC 29.6 g/dl (32.0-36.5); MEAN CORPUSCULAR VOLUME 101.7 fl (80.0-96.0); MONO # 0.2 10^3/uL (0.0-0.8); MONO % 5.5 % (2.0-8.0); NEUTROPHILS # 2.9 10^3/uL (1.5-8.5); NEUTROPHILS % 83.7 % (36.0-66.0); RED BLOOD COUNT 3.52 10^6/uL (4.30-6.10); WHITE BLOOD COUNT 3.4 10^3/uL (4.0-10.0)
[2020-10-14 08:12] LABS: PLATELET COUNT, AUTOMATED 74 10^3/uL (150-450)
[2020-10-14 08:19] LABS: INR 1.11; PROTHROMBIN TIME 14.5 SECONDS (12.5-14.3)
[2020-10-14 08:20] LABS: PARTIAL THROMBOPLASTIN TIME 27.5 SECONDS (24.2-38.5)
[2020-10-14 08:44] LABS: ALBUMIN 3.2 GM/DL (3.2-5.2); ALT/SGPT 47 U/L (12-78); BILIRUBIN,DIRECT 0.2 MG/DL (0.0-0.2); BILIRUBIN,TOTAL 0.5 MG/DL (0.2-1.0); BLOOD UREA NITROGEN 29 MG/DL (7-18); CALCIUM LEVEL 9.6 MG/DL (8.8-10.2); CARBON DIOXIDE LEVEL 31 MEQ/L (21-32); CHLORIDE LEVEL 105 MEQ/L (98-107); CK-MB VALUE MASS < 1.0 NG/ML (<3.6); CPK CREATINE PHOSPHOKINASE 15 U/L (39-308); CREATININE FOR GFR 0.91 MG/DL (0.70-1.30); GLOMERULAR FILTRATION RATE > 60.0 (>42); GLUCOSE, FASTING 122 MG/DL (70-100); LIPASE 111 U/L (73-393); MB/CK RELATIVE INDEX 6.67 (< OR =4); POTASSIUM SERUM 4.3 MEQ/L (3.5-5.1); SODIUM LEVEL 141 MEQ/L (136-145); TOTAL PROTEIN 6.8 GM/DL (6.4-8.2); TROPONIN I < 0.02 NG/ML (< 0.10)
--- NOTE | 2020-10-14 08:48 | REP ---
INDICATION: abdominal pain, effusions COMPARISON: 10/11/2020 TECHNIQUE: Portable AP view of the chest FINDINGS: Allowing for variation in technique, pleuroparenchymal changes involving the right hemithorax with areas of consolidation, fibrosis/scarring, and suspected pleural effusion are essentially unchanged. Left hemithorax demonstrates chronic appearing changes and possible stable focus of atelectasis at the left base. No new acute process appreciated. Visualized portions of the mediastinum and cardiac silhouette including pacemaker are stable. Skeletal structures are intact. IMPRESSION: No significant change from prior examination <Electronically signed by Dante Wright > 10/14/20 [id number]
[2020-10-14] MEDS ORDERED: ISOVUE-370 76% 100ML VIAL As Ordered ONE (08:57)
[2020-10-14] MEDS ORDERED: predniSONE 20 MG TAB PO ONE (09:00)
[2020-10-14] MEDS: NYSTATIN OINTMENT 15 GM TOP SCH ×2 (09:00→20:59)
[2020-10-14] MEDS ORDERED: ENOXAPARIN 40MG/0.4ML SYRINGE (J1650 PER 10MG) SC SCH (09:00)
--- NOTE | 2020-10-14 09:52 | REP ---
INDICATION: right effusion, cancer, r/o pe COMPARISON: 10/11/2020 TECHNIQUE: Axial contrast enhanced images from the thoracic inlet to the upper abdomen using pulmonary embolus technique with multiplanar re-formations. 75 ml Isovue 370 intravenous contrast material administered without complication. This CT examination was performed using the following dose reduction techniques: Automated exposure control, adjustment of mA and/or kv according to the patient's size, and use of iterative reconstruction technique. FINDINGS: There is satisfactory enhancement of the pulmonary vasculature. There is no evidence for pulmonary embolus involving the left hemithorax. The right hemithorax including truncated appearance of the right main pulmonary artery with limited pulmonary arterial enhancement extending into the right upper lobe and portions of the right middle lobe, areas of consolidation with air bronchograms and loculated hydropneumothorax are unchanged from recent prior examinations. Left hemithorax and aerated right upper lung zone demonstrate areas of chronic scarring and emphysematous changes along with right apical opacities unchanged from prior examination. There is no evidence for new acute pleuroparenchymal process. The mediastinum with chronic right-sided shift due to volume loss appears relatively stable including atherosclerotic changes to the thoracic aorta and coronary arteries without significant cardiomegaly or pericardial effusion. IMPRESSION: 1. Stable bilateral pleuroparenchymal changes essentially unchanged compared to 10/14/2020. Pulmonary arteries are stable in appearance and without definite pulmonary embolus. Changes to the right pulmonary arteries may reflect prior surgery rather than chronic obstruction although correlation with history is recommended. 2. No new acute process appreciated. <Electronically signed by Dante Wright > 10/14/20 0949
--- NOTE | 2020-10-14 09:58 | REP ---
INDICATION: luq abd pain at peg site. COMPARISON: 10/11/2020 TECHNIQUE: Axial contrast-enhanced images from the lung bases to the pubic symphysis using 100 cc Isovue 370 intravenous contrast material. Coronal and sagittal reformations obtained. This CT examination was performed using the following dose reduction techniques: Automated exposure control, adjustment of mA and/or kv according to the patient's size, and the use of iterative reconstruction technique. FINDINGS: Liver, spleen, pancreas, bilateral adrenal glands and kidneys are stable and relatively normal for arterial phase enhancement. Hepatic and left renal cyst remain stable. The gallbladder demonstrates layering high density material suggesting vicarious excretion of contrast as well as possible small gallstones. The enteric system is without obstruction or obvious acute inflammatory process. Percutaneous gastrostomy tube is identified in stable satisfactory position. Small amount of pelvic ascites again noted and unchanged. Pelvis demonstrates stable prostatomegaly and normal appearance of the bladder. Abdominal aorta demonstrates stable changes consistent with prior aortoiliac stenting and chronic mild aneurysmal dilatation without obvious evidence for leak or extravasation. No free air. Musculoskeletal structures demonstrate stable degenerative changes. IMPRESSION: 1. Small amount of ascites in the pelvis unchanged. 2. Stable chronic findings as described above unchanged compared to prior examination. 3. No obvious new acute abdominopelvic process appreciated. <Electronically signed by Dante Wright > 10/14/20 [id number]
[2020-10-14 10:39] LABS: RSV AMPLIFICATION NEGATIVE (NEGATIVE)
[2020-10-14] MEDS: METOCLOPRAMIDE HCL LIQUID 10 MG/10 ML UDC PEG SCH ×3 (13:00→20:58)
[2020-10-14] MEDS ORDERED: PRED20TA PEG (13:55)
[2020-10-14] MEDS ORDERED: MIRA3350 PEG (13:55)
[2020-10-14] MEDS ORDERED: GABA-1171 PO (13:55)
[2020-10-14] MEDS ORDERED: DOCU5LIQ PEG (13:55)
[2020-10-14] MEDS ORDERED: OXYC1TAB23 PEG (13:55)
[2020-10-14] MEDS ORDERED: NYSTOI TOP (13:55)
[2020-10-14] MEDS ORDERED: ACETAMINOPHEN TAB 650MG DOSE (2X325MG) PO PRN (14:05)
[2020-10-14] MEDS ORDERED: guaiFENesin SYRUP 200 MG/10 ML UDC PEG PRN (14:10)
[2020-10-14] MEDS ORDERED: MIRALAX *UNIT DOSE* 17GM PACKET PEG PRN (14:10)
[2020-10-14] MEDS ORDERED: DOCUSATE SOD LIQ 100MG/10ML UDC PEG PRN (14:10)
[2020-10-14] MEDS ORDERED: predniSONE 20 MG TAB PEG SCH (14:10)
[2020-10-14] MEDS ORDERED: hydrOXYzine 25 MG TAB PEG PRN (14:10)
[2020-10-14] MEDS ORDERED: MOM 30ML SUSPENSION UDC PEG PRN (14:10)
[2020-10-14] MEDS ORDERED: ALBUTEROL 90 MCG/ACT 8GM HFA INHALER INH PRN (14:10)
--- NOTE | 2020-10-14 14:54 | HPEPDOC ---
General Date of Admission 10/14/20 Date of Service: Oct 14, 2020 Chief Complaint The patient is a 79-year-old male admitted with a reason for visit of Feeding Tube Problem. 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 According to patient and his son PEG tube started leaking 3 weeks ago, patient noticed significant skin irritation around the PEG tube. Last week patient went to emergency department, PEG tube was replaced, however leakage didn't stop. Patient states he uses Jevity at home for intermittent feeding. He denies any blood in the G-tube. Also patient stated that he doesn't have energy and he has been having generalized weakness for past few months. Patient has had continued weight loss since his cancer diagnosis. Before cancer diagnosis patient weight was around 160 pounds. Patient denied fever, chills, nausea, vomiting, diarrhea or dysuria. In the ER patient was found to have leukocytes count of 3.4, hemoglobin 10.6, lactic acid 2.3. CTA showed Stable bilateral pleuroparenchymal changes essentially unchanged compared to 10/14/2020. Pulmonary arteries are stable in appearance and without definite pulmonary embolus. CT abdomen and pelvis showed No obvious new acute abdominopelvic process appreciated. Home Medications Scheduled Acyclovir (Acyclovir) 400 Mg Tablet, 400 MG PEG BID, (Reported) Alprazolam (Alprazolam) 0.5 Mg Tablet, 0.5 MG PEG BID, (Reported) Digoxin (Digoxin) 125 Mcg Tablet, 125 MCG PEG Q2D, (Reported) Doxazosin Mesylate (Doxazosin Mesylate) 1 Mg Tablet, 1 MG PEG QHS, (Reported) Gabapentin (Gabapentin) 100 Mg Capsule, 100 MG PO DAILY, (Reported) Lactose-Reduced Food/Fiber (Jevity 1.2 Lazaro Liquid) 237 Ml Liquid, 1 LIQ PEG QID, (Reported) TAKES 3 TO 4 TIMES DAILY DEPENDING ON HOW STOMACH FEELS Metoclopramide HCl (Metoclopramide HCl) 10 Mg/10 Ml Solution, 10 MG PEG QID, (Reported) Nystatin (Nystatin Oint) 30 Gm Oint...g., 1 APLCT TOP BID, (Reported) APPLY TO AREA AROUND G-TUBE SITE Oxycodone HCl/Acetaminophen (Oxycodone-Acetaminophen 5-325) 1 Each Tablet, 2 TAB PEG QID, (Reported) Prednisone (Prednisone) 5 Mg Tablet, 5 MG PEG DAILY, (Reported) ON HOLD UNTIL TAPER DOSE IS COMPLETE Prednisone (Prednisone) 20 Mg Tablet, 20 MG PEG ASDIRECTED, (Reported) 60MG DAILY ON DAYS 1-3 40MG DAILY ON DAYS 4-7 20MG DAILY ON DAYS 8-10 PT CURRENTLY ON DAY 3 Tamsulosin HCl (Flomax) 0.4 Mg Capsule, 0.4 MG PEG DAILY, (Reported) Scheduled PRN Albuterol Sulfate (Albuterol Sulfate Hfa) 8.5 Gm Hfa.aer.ad, 2 PUFF INH QID PRN for WHEEZING, (Reported) Docusate Sodium (Docusate Sodium) 50 Mg/5 Ml Liquid, 100 MG PEG BID PRN for CONSTIPATION, (Reported) Guaifenesin (Guaifenesin) 100 Mg/5 Ml Liquid, 10 ML PEG BID PRN for CONGESTION, (Reported) Hydroxyzine Pamoate (Hydroxyzine Pamoate) 25 Mg Capsule, 25 MG PEG QID PRN for ITCHING, (Reported) Magnesium Hydroxide (Milk of Magnesia) 400 Mg/5 Ml Oral.susp, 15 ML PEG DAILY PRN for CONSTIPATION, (Reported) Polyethylene Glycol 3350 (Miralax) 119 Gm Powder, 17 GM PEG BID PRN for CONSTIPATION, (Reported) dilute in 8 ounces of water or juice Allergies Coded Allergies: No Known Allergies (Unverified , 06/03/20) Past Medical History Medical History T3-T6 compression fractures Leaking G tube 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 Bradycardia with a pacemaker. BPH GERD COPD Dysphagia Surgical History Left sided chest tube/pleurX catheter in 06/2019 for recurrent pleural effusion Dual chamber Pacemaker placed at [facility] G-tube insertion s/p dysphagia in setting of radiation induced throat injury (12/2018) G tube replacement in 08/2020 and 10/25 Colectomy with colostomy, colostomy take down and reanastomosis. AAA repair Family History Mother w/ brain aneurysm Brother with lung cancer Social History * Smoker: former Smoker Alcohol: Denies Drugs: denies A-FIB/CHADSVASC A-FIB History Current/History of A-Fib/PAF?: No Current PO Anticoag Therapy: No Review of Systems Constitutional: Reports: Weakness, Weight Loss; Denies: Chills, Fever Eyes: Denies: Pain ENT: Denies: Head Aches Skin: Reports: Breakdown (skin maceration around PEG tube) Pulmonary: Denies: Cough Cardiovascular: Denies: Chest Pain Gastrointestinal: Denies: Nausea, Vomiting Genitourinary: Denies: Dysuria Hematologic: Denies: Bruising Endocrine: Denies: Polydipsia Musculoskeletal: Denies: Neck Pain Neurological: Denies: Weakness Psych: Reports: Mood Normal Physical Examination General Exam: Positive: Alert, Cooperative Eye Exam: Positive: PERRLA ENT Exam: Positive: Atraumatic Neck Exam: Positive: Supple; Negative: JVD Chest Exam: Positive: Diminished Heart Exam: Positive: Rate Normal Telemetry: Positive: No significant arrhythmia Abdomen Exam: Negative: Tenderness Extremity Exam: Positive: Clubbing; Negative: Cyanosis Skin Exam: Positive: Breakdown (skin maceration around PEG) Neuro Exam: Positive: Cranial Nerves 3-12 NL Psych Exam: Positive: Mental status NL Vital Signs Vital Signs Date Time Temp Pulse Resp B/P (MAP) Pulse Ox O2 Delivery O2 Flow Rate FiO2 10/14/20 12:45 71 18 145/71 (95) 97 Room Air 10/14/20 07:16 98.4 Laboratory Data Labs 24H Laboratory Tests 2 10/14/20 07:55: Immature Granulocyte % (Auto) 0.6, Neutrophils (%) (Auto) 83.7H, Lymphocytes (%) (Auto) 10.2L, Monocytes (%) (Auto) 5.5, Eosinophils (%) (Auto) 0.0, Basophils (%) (Auto) 0.0, Neutrophils # (Auto) 2.9, Lymphocytes # (Auto) 0.4L, Monocytes # (Auto) 0.2, Eosinophils # (Auto) 0.0, Basophils # (Auto) 0.0, Nucleated Red Blood Cells % (auto) 0.0, Immature Platelet Fraction 6.1, Prothrombin Time 14.5H, Prothromb Time International Ratio 1.11, Activated Partial Thromboplast Time 27.5, Anion Gap 5L, Glomerular Filtration Rate > 60.0, Lactic Acid Level 2.3*H, Calcium Level 9.6#, Total Bilirubin 0.5#, Direct Bilirubin 0.2, Aspartate Amino Transf (AST/SGOT) 29, Alanine Aminotransferase (ALT/SGPT) 47, Alkaline Phosphatase 104, Total Creatine Kinase 15L, Creatine Kinase MB < 1.0, Creatine Kinase MB Relative Index 6.67H, Troponin I < 0.02, Total Protein 6.8, Albumin 3.2, Albumin/Globulin Ratio 0.9, Prealbumin 30.7, Lipase 111 10/14/20 09:49: Coronavirus (COVID-19)(PCR) NEGATIVE, Influenza Type A (RT-PCR) NEGATIVE, Influenza Type B (RT-PCR) NEGATIVE, Respiratory Syncytial Virus (PCR) NEGATIVE CBC/BMP Laboratory Tests 10/14/20 07:55 Assessment/Plan Patient is 79 years old male with past history of LLL stage IIIB non small cell lung cancer previously on chemotherapy discontinued in 2018, 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 According to patient and his son PEG tube started leaking 3 weeks ago, patient noticed significant skin irritation around the PEG tube. Last week patient went to emergency department, PEG tube was replaced, however leakage didn't stop. Patient states he uses Jevity at home for intermittent feeding. He denies any blood in the G-tube. Also patient stated that he doesn't have energy and he has been having generalized weakness for past few months. Patient has had continued weight loss since his cancer diagnosis. Before cancer diagnosis patient weight was around 160 pounds. Patient denied fever, chills, nausea, vomiting, diarrhea or dysuria. In the ER patient was found to have leukocytes count of 3.4, hemoglobin 10.6, lactic acid 2.3. CTA showed Stable bilateral pleuroparenchymal changes essentially unchanged compared to 10/14/2020. Pulmonary arteries are stable in appearance and without definite pulmonary embolus. CT abdomen and pelvis showed No obvious new acute abdominopelvic process appreciated. Problems (1) PEG tube malfunction Status: Acute Problem Text: Appreciate/agree with surgical team consult Barrier cream for now around PEG (2) Skin breakdown Status: Acute Problem Text: barrier cream BID around PEG tube No signs of infection, no pus, no deep ulceration (3) Failure to thrive Status: Acute Problem Text: Most likely secondary to advanced malignancy Palliative care on board Full director of channel marketing assessment. Patient progressively has been losing weight. PT/OT (4) Non-small cell carcinoma of lung Status: Acute Problem Text: Patient did not follow oncologist since 2019 Patient was not able to tolerate chemotherapy Will discuss with palliative care and family possible a hospice option (5) Pancytopenia Status: Chronic Problem Text: Most likely secondary to advanced malignancy We'll check iron study, B12 and folate Teds and sequential Pharmacological DVT prophylaxis on hold due to low platelet count (6) Thoracic compression fracture Status: Chronic Problem Text: History of T3-T6 compression fractures with chronic back pain Pain management I will start alendronate, vit D and calcium supplementation Plan / VTE VTE Prophylaxis Ordered?: No VTE Exclusion Pharmacological: Thrombocytopenia STERLING MCKEON DO Oct 14, 2020 14:54
[2020-10-14 15:25] VITALS: BP 138/74
[2020-10-14] MEDS: GABAPENTIN 100 MG CAP PO SCH (15:34)
[2020-10-14] MEDS: ALPRAZolam 0.5 MG TAB PEG SCH ×2 (15:34→21:00)
[2020-10-14] MEDS: PERCOCET 5MG/325MG TAB PEG SCH ×3 (15:34→21:00)
[2020-10-14] MEDS: DOXAZOSIN MESYLATE 1 MG TAB PEG SCH (21:00)
[2020-10-14 22:00] VITALS: BP 94/54
--- NOTE | 2020-10-15 03:13 | ECGEPIP ---
[facility] - ED Test Date: 2020-10-14 Pat Name: RONALD ARORA Department: Room: - Gender: Male [employer] Mechan[employer]: nacho murillo : [id number] Requested By: MENDOZA Gould Order Number: [id number] Reading MD: Mendoza Mi Measurements Intervals [place] Rate: 73 P: OK: QRS: 120 QRSD: 60 T: 35 QT: 352 QTc: 387 Interpretive Statements Normal Sinus Rhythm Low voltage QRS in limb leads Baseline artifact Similar to tracing done 10-11-20 Electronically Signed on 10-15-2020 3:13:31 EST by Mendoza Mi
[2020-10-15 06:00] VITALS: BP 108/65
[2020-10-15] MEDS ORDERED: MORPHINE 2 MG/ML 1ML VIAL (J2270) IV ONE (06:05)
[2020-10-15] MEDS ORDERED: ALENDRONATE 35MG TABLET PO SCH (07:00)
[2020-10-15 07:08] LABS: HEMOGLOBIN 9.6 g/dl (13.5-17.5); MEAN CORPUSCULAR HEMOGLOBIN 30.7 pg (27.0-33.0); MEAN CORPUSCULAR VOLUME 102.2 fl (80.0-96.0); RED BLOOD COUNT 3.13 10^6/uL (4.30-6.10)
[2020-10-15 07:13] LABS: PLATELET COUNT, AUTOMATED 62 10^3/uL (150-450)
[2020-10-15 07:34] LABS: ALBUMIN 2.8 GM/DL (3.2-5.2); ALT/SGPT 92 U/L (12-78); BILIRUBIN,TOTAL 0.5 MG/DL (0.2-1.0); BLOOD UREA NITROGEN 29 MG/DL (7-18); CALCIUM LEVEL 9.2 MG/DL (8.8-10.2); CARBON DIOXIDE LEVEL 30 MEQ/L (21-32); CHLORIDE LEVEL 106 MEQ/L (98-107); CREATININE FOR GFR 0.65 MG/DL (0.70-1.30); GLOMERULAR FILTRATION RATE > 60.0 (>42); GLUCOSE, FASTING 104 MG/DL (70-100); MAGNESIUM LEVEL 2.2 MG/DL (1.8-2.4); POTASSIUM SERUM 4.1 MEQ/L (3.5-5.1); SODIUM LEVEL 141 MEQ/L (136-145); TOTAL PROTEIN 5.9 GM/DL (6.4-8.2)
[2020-10-15] MEDS: CALCIUM/VITAMIN D 500 MG TAB PO SCH (08:07)
[2020-10-15] MEDS: METOCLOPRAMIDE HCL LIQUID 10 MG/10 ML UDC PEG SCH ×4 (08:07→20:59)
[2020-10-15] MEDS: ALPRAZolam 0.5 MG TAB PEG SCH ×2 (08:07→21:01)
[2020-10-15] MEDS: GABAPENTIN 100 MG CAP PO SCH (08:08)
[2020-10-15] MEDS: predniSONE 20 MG TAB PO SCH (08:08)
[2020-10-15] MEDS: TAMSULOSIN 0.4 MG CAP XX SCH (08:08)
[2020-10-15] MEDS: PERCOCET 5MG/325MG TAB PEG SCH ×4 (08:08→21:00)
[2020-10-15] MEDS ORDERED: DIGOXIN 0.125 MG TAB PEG SCH (09:00)
[2020-10-15] MEDS: NYSTATIN OINTMENT 15 GM TOP SCH ×2 (09:00→21:02)
[2020-10-15] MEDS: MORPHINE 2 MG/ML 1ML VIAL (J2270) IV PRN ×3 (10:51→20:59)
--- NOTE | 2020-10-15 13:09 | IPNPDOC ---
Text Note Date of Service The patient was seen on 10/15/20. NOTE Subjective: No any acute events overnight. Dr. Lara saw patient yesterday and he will try to advance PEG tube today Objective: GENERAL APPEARANCE: Cachectic male HEENT: no scleral icterus, no JVD, EOMI CARDIOVASCULAR: S1S2 LUNGS: Diminished lung sounds bilaterally ABDOMEN: soft & not tender w palpitation, PEG tube in place MUSCULOSKELETAL: no cyanosis, no swelling INTEGUMENT: Skin maceration around PEG NEUROLOGICAL: cranial nerve function from 2-12 intact intact, follows commands, speech not dysarthric Assessment/Plan Patient is 79 years old male with past history of LLL stage IIIB non small cell lung cancer previously on chemotherapy discontinued in 2018, 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 According to patient and his son PEG tube started leaking 3 weeks ago, patient noticed significant skin irritation around the PEG tube. Last week patient went to emergency department, PEG tube was replaced, however leakage didn't stop. Patient states he uses Jevity at home for intermittent feeding. He denies any blood in the G-tube. Also patient stated that he doesn't have energy and he has been having generalized weakness for past few months. Patient has had continued weight loss since his cancer diagnosis. Before cancer diagnosis patient weight was around 160 pounds. Patient denied fever, chills, nausea, vomiting, diarrhea or dysuria. In the ER patient was found to have leukocytes count of 3.4, hemoglobin 10.6, lactic acid 2.3. CTA showed Stable bilateral pleuroparenchymal changes essentially unchanged compared to 10/14/2020. Pulmonary arteries are stable in appearance and without definite pulmonary embolus. CT abdomen and pelvis showed No obvious new acute abdominopelvic process appreciated. Problems (1) PEG tube malfunction Await surgical team recommendation Barrier cream for now around PEG (2) Skin breakdown barrier cream BID around PEG tube No signs of infection, no pus, no deep ulceration (3) Failure to thrive Most likely secondary to advanced malignancy Palliative care on board Full film tests checker assessment. Patient progressively has been losing weight. Patient declined PT/OT (4) Non-small cell carcinoma of lung Patient did not follow oncologist since 2018 Patient was not able to tolerate chemotherapy Will discuss with palliative care and family possible a hospice option (5) Pancytopenia Most likely secondary to advanced malignancy We'll check iron study, B12 and folate Teds and sequential Pharmacological DVT prophylaxis on hold due to low platelet count (6) Thoracic compression fracture History of T3-T6 compression fractures with chronic back pain Pain management started alendronate, vit D and calcium supplementation VS,Fishbone, I+O VS, Fishbone, I+O Laboratory Tests 10/15/20 06:40 10/15/20 06:41 Vital Signs Date Time Temp Pulse Resp B/P (MAP) Pulse Ox O2 Delivery O2 Flow Rate FiO2 10/15/20 11:01 18 10/15/20 08:10 54 10/15/20 06:00 97.3 108/65 (79) 96 Room Air I&O- Last 24 Hours up to 6 AM 10/15/20 05:59 Intake Total 0 ml Output Total 400 ml Balance -400 ml STERLING MCKEON DO Oct 15, 2020 13:09
[2020-10-15 14:06] LABS: PERCENT SATURATION 41.5 % (19.7-50.0)
[2020-10-15 14:17] LABS: FOLATE 8.8 NG/ML (>5.4)
[2020-10-15 14:56] VITALS: BP 132/70
[2020-10-15 21:00] VITALS: BP 128/80
[2020-10-15] MEDS: DOXAZOSIN MESYLATE 1 MG TAB PEG SCH (21:00)
[2020-10-15 22:00] VITALS: BP 128/80
[2020-10-16] MEDS: MORPHINE 2 MG/ML 1ML VIAL (J2270) IV PRN ×2 (01:03→05:11)
[2020-10-16 06:00] VITALS: BP 136/75
[2020-10-16] MEDS: NYSTATIN OINTMENT 15 GM TOP SCH (09:00)
[2020-10-16] MEDS: METOCLOPRAMIDE HCL LIQUID 10 MG/10 ML UDC PEG SCH (09:00)
[2020-10-16] MEDS: CALCIUM/VITAMIN D 500 MG TAB PO SCH (09:12)
[2020-10-16] MEDS: predniSONE 20 MG TAB PO SCH (09:13)
[2020-10-16] MEDS: TAMSULOSIN 0.4 MG CAP XX SCH (09:13)
[2020-10-16] MEDS: GABAPENTIN 100 MG CAP PO SCH (09:14)
[2020-10-16] MEDS: PERCOCET 5MG/325MG TAB PEG SCH (09:14)
[2020-10-16] MEDS: ALPRAZolam 0.5 MG TAB PEG SCH (09:14)
--- NOTE | 2020-10-16 12:22 | CR ---
CONSULTATION DATE: 10/15/2020 REASON FOR CONSULTATION: Leakage around his gastrostomy tube with skin breakdown. HISTORY OF PRESENT ILLNESS: The patient is a 80-year-old man who was admitted to the hospital on the 14 of October for problems with his gastrostomy tube. He has a history of non-small cell lung cancer which had been treated back in 2019. He had a squamous carcinoma of the head and neck region treated with radiation in 2013. He has a history of other problems including thoracic spine compression fractures, chronic pain, dysphagia following his cancer treatments, myocardial infarction, chronic lung disease, bradycardia. He has been dependent on a percutaneous endoscopic gastrostomy tube that was placed sometime ago. He reports that he has been taking no oral intake. The tube had apparently had some leakage noticed several weeks ago and the tube was replaced with a replacement balloon retention catheter. He has been continuing with the feedings but has noticed leakage of fluid around the tube causing skin breakdown with a lot of burning and irritation. He has been losing some strength and presented to the Emergency Department and was admitted. I have been asked now to evaluate his tube. ALLERGIES: The patient has no recorded drug allergies. HOME MEDICATIONS: Listed in the record. MEDICAL HISTORY: Significant for the items noted in his history of present illness, most significant for his soft palate squamous cell carcinoma treated with radiation and his lung cancer previously on chemotherapy. He has a history of RI with hypertensive heart disease and bradycardia with a pacemaker. He has dysphagia associated with his prior cancer treatments. SURGICAL HISTORY: Dual chamber pacemaker. He has had a GE tube inserted approximately two years ago. This was replaced earlier this year. He has had a colectomy followed by colostomy takedown and anastomosis. He has had an endovascular repair of an abdominal aortic aneurysm. FAMILY AND SOCIAL HISTORY: As noted in the Hospitalist record. PHYSICAL EXAMINATION: Physical exam shows a somewhat frail-appearing thin elderly man lying quietly in the hospital bed. He is alert and oriented. Examination is limited to the abdomen. He has some scarring consistent with his prior surgery. In his left upper quadrant not far below the costal margin, he has a #20 Chinese silicone single lumen feeding tube with a balloon for retention. He does have an area about 10 to 12 cm in maximum diameter of some faint dusky redness of the surrounding skin with a few more centrally located areas of superficial desquamation. IMAGING: Patient had a CT scan of the abdomen and pelvis done at the time of his admission on the . This shows the tube nicely in position within the stomach. I do note that the balloon is taking up much of the lumen as the tube is fairly distal in his stomach. There appears to be a fair amount of laxity in the catheter between the retention disc and the balloon. IMPRESSION: 1. Gastrostomy tube with leakage at the site likely multifactorial. PLAN: I spoke with the patient about his gastrostomy tube. I deflated the balloon to determine how much fluid was in it and then refilled it with 4 ml of fluid to make the balloon smaller. I suspect that some of the issue may be related to the balloon causing a partial obstruction leading to increased gastric pressures and leakage around the catheter. I have also pulled the balloon up more snugly to the anterior abdominal wall and brought the external retention disc down to gently touch the skin. This puts the 2 cm linette at about the skin level where it should remain. I did place a suture through the hub of the retention disc and tied this around the feeding tube to try to keep the retention disc in the appropriate place. We will see how this works. I suspect this will take care of the leakage to allow it to heal in the area around his tube. This can be changed at any time as needed. From my point of view, he can be discharged from the hospital whenever the Hospitalist feels his medical conditions are stable. He can follow-up in the office if needed for his feeding tube. BRYN
[2020-10-16] MEDS ORDERED: FOSA70TA3 PO (12:47)
[2020-10-16] MEDS ORDERED: CALTTAB6 PO (12:47)
--- NOTE | 2020-10-16 12:49 | DS.PDOC ---
Discharge Summary General Date of Admission Oct 14, 2020 at 14:02 Date of Discharge 10/16/20 Discharge Summary PROCEDURES PERFORMED DURING STAY: [None]. ADMITTING DIAGNOSES: PEG tube malfunction Skin breakdown Failure to thrive Non-small cell carcinoma of lung Pancytopenia Thoracic compression fracture DISCHARGE DIAGNOSES: PEG tube malfunction Skin breakdown Failure to thrive Non-small cell carcinoma of lung Pancytopenia Thoracic compression fracture COMPLICATIONS/CHIEF COMPLAINT: Failure To Thrive Peg Tube Malfunction. 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 According to patient and his son PEG tube started leaking 3 weeks ago, patient noticed significant skin irritation around the PEG tube. Last week patient went to emergency department, PEG tube was replaced, however leakage didn't stop. Patient states he uses Jevity at home for intermittent feeding. He denies any blood in the G-tube. Also patient stated that he doesn't have energy and he has been having generalized weakness for past few months. Patient has had continued weight loss since his cancer diagnosis. Before cancer diagnosis patient weight was around 160 pounds. Patient denied fever, chills, nausea, vomiting, diarrhea or dysuria. In the ER patient was found to have leukocytes count of 3.4, hemoglobin 10.6, lactic acid 2.3. CTA showed Stable bilateral pleuroparenchymal changes essentially unchanged compared to 10/14/2020. Pulmonary arteries are stable in appearance and without definite pulmonary embolus. CT abdomen and pelvis showed No obvious new acute abdominopelvic process appreciated. HOSPITAL COURSE: During the hospital stay following issues addressed (1) PEG tube malfunction surgical team advanced and adjusted PEG successfully Barrier cream for now around PEG (2) Skin breakdown barrier cream BID around PEG tube No signs of infection, no pus, no deep ulceration (3) Failure to thrive Most likely secondary to advanced malignancy Palliative care on board Full signal technician assessment. Patient progressively has been losing weight. Patient declined PT/OT (4) Non-small cell carcinoma of lung Patient did not follow oncologist since 2019 Patient was not able to tolerate chemotherapy (5) Pancytopenia Most likely secondary to advanced malignancy Teds and sequential Pharmacological DVT prophylaxis on hold due to low platelet count Follow-up with PCP in the outpatient settings (6) Thoracic compression fracture History of T3-T6 compression fractures with chronic back pain Pain management started alendronate, vit D and calcium supplementation DISCHARGE MEDICATIONS: Please see below. ALLERGIES: Please see below. PHYSICAL EXAMINATION ON DISCHARGE: VITAL SIGNS: Please see below. GENERAL APPEARANCE: Cachectic male HEENT: no scleral icterus, no JVD, EOMI CARDIOVASCULAR: S1S2 LUNGS: Diminished lung sounds bilaterally ABDOMEN: soft & not tender w palpitation, PEG tube in place MUSCULOSKELETAL: no cyanosis, no swelling INTEGUMENT: Skin maceration around PEG NEUROLOGICAL: cranial nerve function from 2-12 intact intact, follows commands, speech not dysarthric LABORATORY DATA: Please see below. PROGNOSIS: Poor ACTIVITY: [As tolerated]. DIET: By PEG tube, recommendations given Recommend continue with 1.5 cartons (355mL) Jevity 1.5 3x/d. Please add 60mL free water flush pre and post bolus. Additional free water flush with 120mL at 10am, 2pm and 7pm to meet fluid needs and maintain patency of tube DISCHARGE PLAN: DISPOSITION: 01 Home, Self-Care. ITEMS TO FOLLOWUP ON ON OUTPATIENT: With PCP DISCHARGE CONDITION: [Stable]. TIME SPENT ON DISCHARGE: 30minutes. Vital Signs/I&Os Vital Signs Date Time Temp Pulse Resp B/P (MAP) Pulse Ox O2 Delivery O2 Flow Rate FiO2 10/16/20 09:44 18 10/16/20 06:00 97.5 76 136/75 (95) 96 Room Air I&O- Last 24 Hours up to 6 AM 10/16/20 06:00 Intake Total 1675 ml Output Total 450 ml Balance 1225 ml Laboratory Data Labs 24H Laboratory Tests 2 10/15/20 13:32: Iron Level 76, Total Iron Binding Capacity 183L, Transferrin % Saturation 41.5, Vitamin B12 Level 1247H, Folate 8.8 Discharge Medications Scheduled Alprazolam (Alprazolam) 0.5 Mg Tablet, 0.5 MG PEG BID, (Reported) Digoxin (Digoxin) 125 Mcg Tablet, 125 MCG PEG Q2D, (Reported) Doxazosin Mesylate (Doxazosin Mesylate) 1 Mg Tablet, 1 MG PEG QHS, (Reported) Gabapentin (Gabapentin) 100 Mg Capsule, 100 MG PO DAILY, (Reported) Lactose-Reduced Food/Fiber (Jevity 1.2 Lazaro Liquid) 237 Ml Liquid, 1 LIQ PEG QID, (Reported) TAKES 3 TO 4 TIMES DAILY DEPENDING ON HOW STOMACH FEELS Metoclopramide HCl (Metoclopramide HCl) 10 Mg/10 Ml Solution, 10 MG PEG QID, (Reported) Nystatin (Nystatin Oint) 30 Gm Oint...g., 1 APLCT TOP BID, (Reported) APPLY TO AREA AROUND G-TUBE SITE Oxycodone HCl/Acetaminophen (Oxycodone-Acetaminophen 5-325) 1 Each Tablet, 2 TAB PEG QID, (Reported) Prednisone (Prednisone) 5 Mg Tablet, 5 MG PEG DAILY, (Reported) ON HOLD UNTIL TAPER DOSE IS COMPLETE Prednisone (Prednisone) 20 Mg Tablet, 20 MG PEG ASDIRECTED, (Reported) 60MG DAILY ON DAYS 1-3 40MG DAILY ON DAYS 4-7 20MG DAILY ON DAYS 8-10 PT CURRENTLY ON DAY 3 Tamsulosin HCl (Flomax) 0.4 Mg Capsule, 0.4 MG PEG DAILY, (Reported) Scheduled PRN Albuterol Sulfate (Albuterol Sulfate Hfa) 8.5 Gm Hfa.aer.ad, 2 PUFF INH QID PRN for WHEEZING, (Reported) Docusate Sodium (Docusate Sodium) 50 Mg/5 Ml Liquid, 100 MG PEG BID PRN for CONSTIPATION, (Reported) Guaifenesin (Guaifenesin) 100 Mg/5 Ml Liquid, 10 ML PEG BID PRN for CONGESTION, (Reported) Hydroxyzine Pamoate (Hydroxyzine Pamoate) 25 Mg Capsule, 25 MG PEG QID PRN for ITCHING, (Reported) Magnesium Hydroxide (Milk of Magnesia) 400 Mg/5 Ml Oral.susp, 15 ML PEG DAILY PRN for CONSTIPATION, (Reported) Polyethylene Glycol 3350 (Miralax) 119 Gm Powder, 17 GM PEG BID PRN for CONSTIPATION, (Reported) dilute in 8 ounces of water or juice Allergies Coded Allergies: No Known Allergies (Unverified , 06/03/20) STERLING MCKEON DO Oct 16, 2020 12:49
[2020-10-18] MEDS ORDERED: predniSONE 20 MG TAB PO SCH (09:00)
[2020-10-21] MEDS ORDERED: predniSONE 5 MG TAB PEG SCH (09:00)
== END 2020-10-16 10:16 | disposition home health service (06) | DRG 394 ==
LOC: M ED 07:05 → M ED INP 14:02 → ENRESERV 14:33 → M MS5PR 15:15
PROVIDERS: ADMIT Internal Medicine; ATTEND Internal Medicine
DX: K94.29 Other complications of gastrostomy (principal); D61.818 Other pancytopenia; C34.32 Malignant neoplasm of lower lobe, left bronchus or lung; R13.10 Dysphagia, unspecified; K20.80 Other esophagitis without bleeding; I25.2 Old myocardial infarction; J44.9 Chronic obstructive pulmonary disease, unspecified; N40.0 Benign prostatic hyperplasia without lower urinary tract symptoms; K21.9 Gastro-esophageal reflux disease without esophagitis; R62.7 Adult failure to thrive; M48.54XD Collapsed vertebra, not elsewhere classified, thoracic region, subsequent encounter for fracture with routine healing; Z66 Do not resuscitate; Z95.0 Presence of cardiac pacemaker; Z92.3 Personal history of irradiation; Z92.21 Personal history of antineoplastic chemotherapy; Z79.52 Long term (current) use of systemic steroids; Z79.899 Other long term (current) drug therapy; Z90.49 Acquired absence of other specified parts of digestive tract; Z87.891 Personal history of nicotine dependence; Z20.822 Contact with and (suspected) exposure to COVID-19; Z85.818 Personal history of malignant neoplasm of other sites of lip, oral cavity, and pharynx

== ENCOUNTER 2020-11-05 12:18 | Emergency (ER) | payer MEDICARE ==
[~2020-11-05] VITALS: Ht 177.8 cm; Wt 50.9 kg
[~2020-11-05 12:18] MED LIST changes: +CALTTAB6 PO; +DOCU5LIQ PEG; +FOSA70TA3 PO; +GABA-1171 PO; +MIRA3350 PEG; +NYSTOI TOP; +OXYC1TAB23 PEG; +PRED20TA PEG
[2020-11-05] MEDS ORDERED: NS 500 ML IV ONE (13:00)
[2020-11-05] MEDS ORDERED: NS 1,000 ML IV ONE (13:00)
[2020-11-05] MEDS ORDERED: ONDANSETRON 4MG/2ML VIAL IV ONE (13:15)
[2020-11-05] MEDS: MORPHINE 2 MG/ML 1ML VIAL (J2270) IV PRN ×2 (13:20→14:26)
[2020-11-05 13:32] LABS: BASO % 0.6 % (0.0-1.0); EOS % 0.3 % (0.0-3.0); HEMATOCRIT 37.5 % (42.0-52.0); HEMOGLOBIN 11.1 g/dl (13.5-17.5); LYMPH # 0.4 10^3/uL (1.5-5.0); LYMPH % 11.6 % (24.0-44.0); MEAN CORPUSCULAR HEMOGLOBIN 30.6 pg (27.0-33.0); MEAN CORPUSCULAR HGB CONC 29.6 g/dl (32.0-36.5); MEAN CORPUSCULAR VOLUME 103.3 fl (80.0-96.0); MONO # 0.2 10^3/uL (0.0-0.8); MONO % 4.4 % (2.0-8.0); NEUTROPHILS # 2.9 10^3/uL (1.5-8.5); NEUTROPHILS % 81.4 % (36.0-66.0); PLATELET COUNT, AUTOMATED 116 10^3/uL (150-450); RED BLOOD COUNT 3.63 10^6/uL (4.30-6.10); WHITE BLOOD COUNT 3.6 10^3/uL (4.0-10.0)
[2020-11-05 13:40] LABS: INR 1.06
[2020-11-05 13:55] LABS: ALBUMIN 2.8 GM/DL (3.2-5.2); BILIRUBIN,DIRECT 0.2 MG/DL (0.0-0.2); BILIRUBIN,TOTAL 0.5 MG/DL (0.2-1.0); TOTAL PROTEIN 5.8 GM/DL (6.4-8.2)
[2020-11-05] MEDS: GASTROGRAFIN SOLUTION 30ML PO SCH ×2 (14:47→15:10)
[2020-11-05] MEDS ORDERED: ISOVUE-370 76% 100ML VIAL As Ordered ONE (16:10)
--- NOTE | 2020-11-05 16:54 | REP ---
INDICATION: po through G tube please COMPARISON: 10/14/2020. TECHNIQUE: CT Scan of the abdomen and pelvis was performed with intravenous administration of 100 cc of Isovue 370, and oral contrast administered through the patient's gastrostomy tube. FINDINGS: Lung bases: In the right lung base there is stable consolidative opacity with a posterior pleural air/fluid collection, unchanged. Mild pericardial fluid is stable. Liver: There are scattered tiny cysts in the liver. Gallbladder: There are few subcentimeter gallstones in the gallbladder without definite gallbladder wall thickening or edema.. Spleen: Normal. Adrenals: Normal. Pancreas: Normal. Kidneys: Bilateral renal cysts are unchanged. There is no hydronephrosis. Small and large bowel: There is a gastrostomy tube in good position with oral contrast seen in the stomach and extending into more distal small bowel loops.. Free fluid: There is mild free fluid in the pelvis. Abdominal aorta: There is slight dilatation of the distal abdominal aorta at 3 cm in maximum AP diameter. There is a stent graft extending from the mid abdominal aorta just above the level of the renal arteries and superior mesenteric artery, inferiorly into the common iliac arteries. There is internal blood flow and patency. There is mild narrowing of the celiac artery at its origin. There is moderate stenosis at the origin of the superior mesenteric artery. Both main renal arteries appears stenotic at their origins. Adenopathy: None. Appendix: Not inflamed. Osseous structures: Unremarkable. Pelvis: No mass. IMPRESSION: Stable consolidation and air/fluid collection right lung base. There are few subcentimeter gallstones in the gallbladder without evidence for gallbladder wall edema. Gastrostomy tube in good position with no evidence for bowel obstruction. No free air. Mild free fluid in the pelvis. <Electronically signed by Fitz Gregory > 11/05/20 2265
[2020-11-05 18:28] LABS: DIGOXIN LEVEL 0.5 NG/ML (0.5-2.0)
[2020-11-05 18:31] VITALS: BP 140/71
--- NOTE | 2020-11-06 06:33 | ECGEPIP ---
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
--- NOTE | 2020-11-06 09:12 | ED PDOC ---
Post-Departure Follow-Up ct abd/p faxed to shah[facility]ad garcia for fu Josefina Christie MD Nov 06, 2020 09:12
== END 2020-11-05 18:36 | disposition home or self-care (01) ==
LOC: M ED 12:18
DX: G89.4 Chronic pain syndrome (principal); R13.10 Dysphagia, unspecified; Z93.1 Gastrostomy status; J98.4 Other disorders of lung; I25.2 Old myocardial infarction; Z85.118 Personal history of other malignant neoplasm of bronchus and lung; Z85.818 Personal history of malignant neoplasm of other sites of lip, oral cavity, and pharynx; Z92.3 Personal history of irradiation; Z87.891 Personal history of nicotine dependence; Z80.1 Family history of malignant neoplasm of trachea, bronchus and lung; Z79.899 Other long term (current) drug therapy; Z79.52 Long term (current) use of systemic steroids; Z79.891 Long term (current) use of opiate analgesic
CPT/HCPCS: 74177; 80047; 80076; 80162; 82150; 83690; 85025; 85610; 86850; 93005; 93041; 96361; 96374; 96375; 96376; 99285; J2270; J2405; Q9963; Q9967

== ENCOUNTER 2020-11-07 10:01 | Inpatient (IN) | payer MEDICARE ==
[~2020-11-07] VITALS: Ht 177.8 cm; Wt 47.5 kg
[2020-11-07] MEDS ORDERED: NS 1,000 ML IV ONE (10:20)
[2020-11-07] MEDS ORDERED: fentaNYL 100 MCG/2 ML INJECTION (J3010) IV ONE ×3 (10:30→15:05)
--- NOTE | 2020-11-07 10:45 | REP ---
INDICATION: abdl pain. COMPARISON: Portable chest dated 10/14/2020. TECHNIQUE: Portable AP chest with the patient upright. FINDINGS: There are large bulla in the right upper lobe, unchanged. The known hydropneumothorax inferiorly in the right lung has a mottled appearance, similar to the prior study. Left lung is clear and unchanged. Cardiac size is upper normal, unchanged. There is a dual chamber pacemaker, unchanged. The superior tip of an abdominal aortic endovascular stent is seen at the inferior film margin. IMPRESSION: No significant change from the comparison study. <Electronically signed by Fitz Kaplan > 11/07/20 1040
[2020-11-07 11:12] LABS: BASO % 0.8 % (0.0-1.0); EOS % 0.3 % (0.0-3.0); HEMATOCRIT 33.6 % (42.0-52.0); HEMOGLOBIN 10.1 g/dl (13.5-17.5); LYMPH # 0.5 10^3/uL (1.5-5.0); LYMPH % 12.3 % (24.0-44.0); MEAN CORPUSCULAR HEMOGLOBIN 31.5 pg (27.0-33.0); MEAN CORPUSCULAR HGB CONC 30.1 g/dl (32.0-36.5); MEAN CORPUSCULAR VOLUME 104.7 fl (80.0-96.0); MONO # 0.2 10^3/uL (0.0-0.8); MONO % 6.6 % (2.0-8.0); NEUTROPHILS # 2.9 10^3/uL (1.5-8.5); NEUTROPHILS % 78.4 % (36.0-66.0); PLATELET COUNT, AUTOMATED 117 10^3/uL (150-450); RED BLOOD COUNT 3.21 10^6/uL (4.30-6.10); WHITE BLOOD COUNT 3.7 10^3/uL (4.0-10.0)
[2020-11-07 11:21] LABS: INR 1.1; PROTHROMBIN TIME 14.4 SECONDS (12.5-14.3)
[2020-11-07 11:22] LABS: PARTIAL THROMBOPLASTIN TIME 34.4 SECONDS (24.2-38.5)
[2020-11-07 11:41] LABS: ALT/SGPT 17 U/L (12-78); AMYLASE 41 U/L (25-115); BILIRUBIN,DIRECT 0.3 MG/DL (0.0-0.2); BILIRUBIN,TOTAL 0.6 MG/DL (0.2-1.0); CK-MB VALUE MASS 1.9 NG/ML (<3.6); CPK CREATINE PHOSPHOKINASE 23 U/L (39-308); LIPASE 179 U/L (73-393); MB/CK RELATIVE INDEX 8.26 (< OR =4); TROPONIN I < 0.02 NG/ML (< 0.10)
[2020-11-07] MEDS ORDERED: ISOVUE-370 76% 100ML VIAL As Ordered ONE (12:48)
--- NOTE | 2020-11-07 14:43 | REP ---
INDICATION: peg tube, abdominal pain, hx cancer. COMPARISON: Abdomen/pelvis CT dated 11/05/2020. TECHNIQUE: Abdomen/pelvis CT with IV and bowel contrast. FINDINGS: There is a PEG tube entering the anterior gastric wall. There is no fluid or inflammation along the PEG tube tract. The descending duodenum and transverse duodenum are distended to where the transverse duodenum passes between the superior mesenteric artery and aorta with there is abrupt narrowing of the duodenal lumen. This is unchanged. However, there is bowel contrast in the colon and on the comparison study there is bowel contrast in small bowel loops indicating there is no total obstruction in this location. The gallbladder is distended and appears to be even more distended than on the comparison study. There is vicarious excretion of the intravenous contrast into the gallbladder lumen. However, there are tiny gallbladder calculi along the dependent wall of the gallbladder as previously. There is no intrahepatic biliary duct dilatation. I cannot identify the common duct with certainty. However, the pancreatic duct in the pancreatic head appears dilated measuring 8.5 mm in diameter. The pancreatic duct in the body and tail the pancreas does not appear dilated. There is no peripancreatic inflammation. No pancreatic pseudocyst. There are several tiny hepatic cysts, unchanged. There is no enlargement of the head, body or tail of the pancreas. Spleen is normal size. There is a or an aortic endovascular stent. This is unchanged. There is no periaortic hematoma. There is no bowel distention except for the duodenum. There is no ascites. There is no pneumoperitoneum. Pelvis: The appendix is unremarkable. There is ascites in the dependent pelvis. This as increased slightly. The bladder is unremarkable. The pelvic bowel loops are unremarkable. The hydropneumothorax in the visualized lower lung [place] on the right is unchanged. IMPRESSION: The proximal duodenum is distended toward passes between the superior mesenteric artery and aorta. The gallbladder is distended and is even more distended than on the comparison study. Tiny gallbladder calculi are again identified. There is vicarious excretion of the intravenous contrast into the gallbladder. There is no pericholecystic fluid. No biliary duct dilatation. Gallbladder ultrasound might be considered for further evaluation. The pancreatic duct in the pancreatic head appears dilated. The remainder of the pancreatic duct is not dilated. There is no CT evidence of pancreatitis or pseudocyst. There is ascites in the pelvis that has increased slightly. No other bowel distention or obstruction. No hydronephrosis. There is a PEG tube with no complication of the PEG tube tract. The known hydropneumothorax inferiorly in the right hemithorax is unchanged. <Electronically signed by Fitz Kaplan > 11/07/20 [id number]
--- NOTE | 2020-11-07 16:01 | HPEPDOC ---
[facility] Medical History & Physical Date of Admission Nov 07, 2020 Date of Service: Nov 07, 2020 History and Physical CHIEF COMPLAINT: abdominal pain HISTORY OF PRESENT ILLNESS: 80 year old male presents for continued abdominal pain that has been ongoing for several months. He localizes his pain to mostly around his PEG tube. He has had numerous hospital visits and imaging, most recently 10/16/20. His pain continues to be uncontrolled. He denies any other complaints. He denies chest pain, shortness of breath, N/V/D. 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 REVIEW OF SYSTEMS: Negative except as per HPI. HOME MEDICATIONS: Please see below. PHYSICAL EXAMINATION: VITAL SIGNS: See below General: NAD, lying comfortably in bed, chronically ill appearing, cachectic HEENT: NC Lungs; CTA B/L Heart: +S1S2, RRR Abd: soft, +BS, PEG tube in place Ext: no edema LABORATORY DATA: See below. MICROBIOLOGY: Please see below. A/P: 80M with PMHx lung cancer s/p chemo, laryngeal cancer s/p RT with dysphagia s/p PEG tube presents for ongoing intractable abdominal pain. 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 - radiation esophagitis - dysphagia s/p PEG tube placement #T3-T6 compression fractures #chronic pain #CAD/OR #COPD #BPH #bradycardia s/p pacemaker #GERD #failure to thrive #pancytopenia #DVT prophylaxis Vital Signs Vital Signs Date Time Temp Pulse Resp B/P (MAP) Pulse Ox O2 Delivery O2 Flow Rate FiO2 11/07/20 15:42 85 20 95 Room Air 11/07/20 12:00 125/74 (91) 11/07/20 10:01 97.4 Laboratory Data Labs 24H Laboratory Tests 2 11/07/20 10:51: Immature Granulocyte % (Auto) 1.6, Neutrophils (%) (Auto) 78.4H, Lymphocytes (%) (Auto) 12.3L, Monocytes (%) (Auto) 6.6, Eosinophils (%) (Auto) 0.3, Basophils (%) (Auto) 0.8, Neutrophils # (Auto) 2.9, Lymphocytes # (Auto) 0.5L, Monocytes # (Auto) 0.2, Eosinophils # (Auto) 0.0, Basophils # (Auto) 0.0, Nucleated Red Blood Cells % (auto) 0.0, Prothrombin Time 14.4H, Prothromb Time International Ratio 1.10, Activated Partial Thromboplast Time 34.4, Lactic Acid Level 1.7, Total Bilirubin 0.6, Direct Bilirubin 0.3H, Aspartate Amino Transf (AST/SGOT) 10, Alanine Aminotransferase (ALT/SGPT) 17, Alkaline Phosphatase 102, Total Creatine Kinase 23L, Creatine Kinase MB 1.9, Creatine Kinase MB Relative Index 8.26H, Troponin I < 0.02, Total Protein 6.0L, Albumin 3.0L, Albumin/Globulin Ratio 1.0, Amylase Level 41, Lipase 179 11/07/20 11:55: POC Glucose (Misc Panel) 89, POC Sodium (Misc Panel) 137, POC Potassium (Misc Pa rene) 4.2, POC Chloride (Misc Panel) 98, POC Total CO2 (Misc Panel) 34.0H, POC Blood Urea Nitrogen (Misc Panel 22, POC Ionized Calcium (Misc Panel) 5.0, POC Creatinine (Misc Panel) 0.7, POC Hematocrit (Misc Panel) 30.0L CBC/BMP Laboratory Tests 11/07/20 10:51 Microbiology Microbiology 11/07/20 Respiratory Virus Panel (PCR) (RAFITA), Received Pending 11/07/20 Blood Culture, Received Pending 11/07/20 Blood Culture, Received Pending Home Medications Scheduled Alendronate Sodium/Vitamin D3 (Fosamax Plus D 70 mg-2,800 Iu) 1 Each Tablet, 1 TAB PO Q7D for osteoperosis via PEG tube Alprazolam (Alprazolam) 0.5 Mg Tablet, 0.5 MG PEG BID Lazaro/D3/Mag11/Zinc/Telephone Services Sales Representative/Guillermo/Bor (Caltrate 600+D Plus Tablet) 1 Each Tablet, 1 TAB PO BID Digoxin (Digoxin) 125 Mcg Tablet, 125 MCG PEG Q2D Doxazosin Mesylate (Doxazosin Mesylate) 1 Mg Tablet, 1 MG PEG QHS Gabapentin (Gabapentin) 100 Mg Capsule, 100 MG PO DAILY Lactose-Reduced Food/Fiber (Jevity 1.2 Lazaro Liquid) 237 Ml Liquid, 1 LIQ PEG QID TAKES 3 TO 4 TIMES DAILY DEPENDING ON HOW STOMACH FEELS Metoclopramide HCl (Metoclopramide HCl) 10 Mg/10 Ml Solution, 10 MG PEG QID Nystatin (Nystatin Oint) 30 Gm Oint...g., 1 APLCT TOP BID APPLY TO AREA AROUND G-TUBE SITE Oxycodone HCl/Acetaminophen (Oxycodone-Acetaminophen 5-325) 1 Each Tablet, 2 TAB PEG QID Prednisone (Prednisone) 5 Mg Tablet, 5 MG PEG DAILY ON HOLD UNTIL TAPER DOSE IS COMPLETE Prednisone (Prednisone) 20 Mg Tablet, 20 MG PEG ASDIRECTED 60MG DAILY ON DAYS 1-3 40MG DAILY ON DAYS 4-7 20MG DAILY ON DAYS 8-10 PT CURRENTLY ON DAY 3 Tamsulosin HCl (Flomax) 0.4 Mg Capsule, 0.4 MG PEG DAILY Scheduled PRN Albuterol Sulfate (Albuterol Sulfate Hfa) 8.5 Gm Hfa.aer.ad, 2 PUFF INH QID PRN for WHEEZING Docusate Sodium (Docusate Sodium) 50 Mg/5 Ml Liquid, 100 MG PEG BID PRN for CONSTIPATION Guaifenesin (Guaifenesin) 100 Mg/5 Ml Liquid, 10 ML PEG BID PRN for CONGESTION Hydroxyzine Pamoate (Hydroxyzine Pamoate) 25 Mg Capsule, 25 MG PEG QID PRN for ITCHING Magnesium Hydroxide (Milk of Magnesia) 400 Mg/5 Ml Oral.susp, 15 ML PEG DAILY PRN for CONSTIPATION Polyethylene Glycol 3350 (Miralax) 119 Gm Powder, 17 GM PEG BID PRN for CONSTIPATION dilute in 8 ounces of water or juice Allergies Coded Allergies: No Known Allergies (Unverified , 06/03/20) A-FIB/CHADSVASC A-FIB History Current/History of A-Fib/PAF?: No IBIS CHIU MD Nov 07, 2020 16:01
[2020-11-07] MEDS ORDERED: MOM 30ML SUSPENSION UDC PEG PRN (16:55)
[2020-11-07] MEDS ORDERED: DOCUSATE SOD LIQ 100MG/10ML UDC PEG PRN (16:55)
[2020-11-07] MEDS ORDERED: guaiFENesin SYRUP 200 MG/10 ML UDC PEG PRN (16:55)
[2020-11-07] MEDS ORDERED: MIRALAX *UNIT DOSE* 17GM PACKET PEG PRN (16:55)
[2020-11-07] MEDS ORDERED: ALBUTEROL 90 MCG/ACT 8GM HFA INHALER INH PRN (16:55)
[2020-11-07] MEDS ORDERED: hydrOXYzine 25 MG TAB PEG PRN (16:55)
[2020-11-07] MEDS: MORPHINE 2 MG/ML 1ML VIAL (J2270) IV PRN (17:09)
--- NOTE | 2020-11-07 18:06 | REP ---
INDICATION: further eval as per CT abd/pelvis. COMPARISON: Abdomen/pelvis CT or earlier today. TECHNIQUE: Multiple sonographic images of the abdominal right upper quadrant. FINDINGS: The gallbladder is distended. There is biliary sludge in the gallbladder. There are small calculi within the biliary sludge. There is no gallbladder wall thickening or pericholecystic fluid. There is no intrahepatic or extrahepatic biliary duct dilatation. The common biliary duct measures 2.9 mm in diameter. The hepatic parenchyma is homogeneous and otherwise unremarkable. The pancreas is suboptimally demonstrated. The right kidney measures 9.9 x 3.9 x 4.9 cm and is normal size. There is a Bosniak type 1 the 1.1 cm right renal cortical cyst. There is no right renal hydronephrosis, calculus or solid mass. There is no no no right upper quadrant abdominal free fluid. The study is technically difficult because of a limited scanning window and patient unable to suspend respirations during the examination. IMPRESSION: Technically difficult study. Small gallbladder calculi and biliary sludge in the gallbladder. No gallbladder wall thickening or pericholecystic fluid. The common biliary duct is not dilated. Pancreas suboptimally demonstrated. <Electronically signed by Fitz Kaplan > 11/07/20 0222
[2020-11-07] MEDS: PERCOCET 5MG/325MG TAB PEG SCH ×2 (18:16→21:43)
[2020-11-07 18:48] VITALS: BP 143/80
--- NOTE | 2020-11-07 19:10 | ECGEPIP ---
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1940 Requested By: Josefina Gutierrez Order Number: [id number] Reading MD: Josefina Gutierrez Measurements Intervals [place] Rate: 90 P: 73 [place]: 234 QRS: 120 QRSD: 70 T: 41 QT: 344 QTc: 420 Interpretive Statements Sinus rhythm with 1st degree AV block rightward axis Low voltage QRS limb leads Lateral infarct , age undetermined cannot rule out anterior infarct, age undetermined Baseline artifact may affect reading Nonspecific ST T wave changes Delayed R wave progression cw 11/05/[address] T wave changes Electronically Signed on 11-07-2020 19:10:39 EDT by Josefina Gutierrez
[2020-11-07] MEDS: METOCLOPRAMIDE HCL LIQUID 10 MG/10 ML UDC PEG SCH (21:41)
[2020-11-07] MEDS: ALPRAZolam 0.5 MG TAB PEG SCH (21:41)
[2020-11-07] MEDS: DOXAZOSIN MESYLATE 1 MG TAB PEG SCH (21:42)
[2020-11-07] MEDS: NYSTATIN OINTMENT 15 GM TOP SCH (21:42)
[2020-11-07 22:00] VITALS: BP 102/66
[2020-11-08 05:27] VITALS: BP 80/40
[2020-11-08 06:13] VITALS: BP 90/52
[2020-11-08 06:56] LABS: HEMOGLOBIN 9.5 g/dl (13.5-17.5); MEAN CORPUSCULAR HEMOGLOBIN 30.4 pg (27.0-33.0); MEAN CORPUSCULAR HGB CONC 29.7 g/dl (32.0-36.5); MEAN CORPUSCULAR VOLUME 102.6 fl (80.0-96.0); RED BLOOD COUNT 3.12 10^6/uL (4.30-6.10); WHITE BLOOD COUNT 2.6 10^3/uL (4.0-10.0)
[2020-11-08] MEDS ORDERED: NS 500 ML IV ONE (07:15)
[2020-11-08 07:26] LABS: ALBUMIN 2.6 GM/DL (3.2-5.2); ALT/SGPT 12 U/L (12-78); BILIRUBIN,TOTAL 0.7 MG/DL (0.2-1.0); BLOOD UREA NITROGEN 16 MG/DL (7-18); CARBON DIOXIDE LEVEL 29 MEQ/L (21-32); CHLORIDE LEVEL 106 MEQ/L (98-107); CREATININE FOR GFR 0.44 MG/DL (0.70-1.30); GLOMERULAR FILTRATION RATE > 60.0 (>42); GLUCOSE, FASTING 56 MG/DL (70-100); POTASSIUM SERUM 3.5 MEQ/L (3.5-5.1); SODIUM LEVEL 143 MEQ/L (136-145); TOTAL PROTEIN 5.1 GM/DL (6.4-8.2)
[2020-11-08 07:53] LABS: PLATELET COUNT, AUTOMATED 98 10^3/uL (150-450)
[2020-11-08 08:00] VITALS: BP 100/58
[2020-11-08] MEDS ORDERED: SODIUM CHLORIDE 0.9% 1000ML IV ONE (08:00)
[2020-11-08] MEDS: TAMSULOSIN 0.4 MG CAP PO SCH (08:04)
[2020-11-08] MEDS: METOCLOPRAMIDE HCL LIQUID 10 MG/10 ML UDC PEG SCH ×4 (08:04→20:51)
[2020-11-08] MEDS: ALPRAZolam 0.5 MG TAB PEG SCH ×2 (08:04→20:51)
[2020-11-08] MEDS: predniSONE 5 MG TAB PEG SCH (08:04)
[2020-11-08] MEDS: DIGOXIN 0.125 MG TAB PEG SCH (08:05)
[2020-11-08] MEDS: PERCOCET 5MG/325MG TAB PEG SCH ×4 (08:05→20:52)
[2020-11-08] MEDS: NYSTATIN OINTMENT 15 GM TOP SCH (08:06)
[2020-11-08] MEDS: GABAPENTIN 100 MG CAP PO SCH (08:06)
[2020-11-08] MEDS: TRIPLE PASTE 2OZ OINTMENT TOP SCH ×2 (09:00→20:52)
--- NOTE | 2020-11-08 10:02 | IPNPDOC ---
Text Note Date of Service The patient was seen on 11/08/20. NOTE Subjective: Patient seen and examined at bedside. No acute overnight events reported. No new medical complaints this morning. Patient slightly hypotensive this morning, asymptomatic. Resolved with IV fluid bolus. Objective: VITAL SIGNS: See below General: NAD, lying comfortably in bed, chronically ill appearing, cachectic HEENT: NC Lungs; CTA B/L Heart: +S1S2, RRR Abd: soft, +BS, PEG tube in place Ext: no edema A/P: 80M with PMHx lung cancer s/p chemo, laryngeal cancer s/p RT with dysphagia s/p PEG tube presents for ongoing intractable abdominal pain. 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
[2020-11-08 14:00] VITALS: BP 96/50
[2020-11-08] MEDS: LR 1,000 ML IV SCH (14:14)
[2020-11-08] MEDS: DOXAZOSIN MESYLATE 1 MG TAB PEG SCH (20:50)
[2020-11-08 22:00] VITALS: BP 130/83
[2020-11-09] MEDS: LR 1,000 ML IV SCH ×2 (05:38→16:57)
[2020-11-09 06:00] VITALS: BP 109/60
[2020-11-09 06:38] LABS: HEMOGLOBIN 9.4 g/dl (13.5-17.5); MEAN CORPUSCULAR HEMOGLOBIN 31.3 pg (27.0-33.0); MEAN CORPUSCULAR HGB CONC 30.3 g/dl (32.0-36.5); MEAN CORPUSCULAR VOLUME 103.3 fl (80.0-96.0); PLATELET COUNT, AUTOMATED 102 10^3/uL (150-450); WHITE BLOOD COUNT 2.7 10^3/uL (4.0-10.0)
[2020-11-09 07:05] LABS: ALBUMIN 2.4 GM/DL (3.2-5.2); ALT/SGPT 11 U/L (12-78); BILIRUBIN,TOTAL 0.6 MG/DL (0.2-1.0); BLOOD UREA NITROGEN 19 MG/DL (7-18); CALCIUM LEVEL 8.6 MG/DL (8.8-10.2); CARBON DIOXIDE LEVEL 28 MEQ/L (21-32); CHLORIDE LEVEL 104 MEQ/L (98-107); CREATININE FOR GFR 0.63 MG/DL (0.70-1.30); GLOMERULAR FILTRATION RATE > 60.0 (>42); GLUCOSE, FASTING 50 MG/DL (70-100); POTASSIUM SERUM 3.6 MEQ/L (3.5-5.1); SODIUM LEVEL 140 MEQ/L (136-145); TOTAL PROTEIN 5.2 GM/DL (6.4-8.2)
[2020-11-09] MEDS: ALPRAZolam 0.5 MG TAB PEG SCH ×2 (08:59→20:39)
[2020-11-09] MEDS: GABAPENTIN 100 MG CAP PO SCH (08:59)
[2020-11-09] MEDS: METOCLOPRAMIDE HCL LIQUID 10 MG/10 ML UDC PEG SCH ×4 (08:59→20:39)
[2020-11-09] MEDS: PERCOCET 5MG/325MG TAB PEG SCH ×4 (09:00→20:40)
[2020-11-09] MEDS: TAMSULOSIN 0.4 MG CAP PO SCH (09:00)
[2020-11-09] MEDS: predniSONE 5 MG TAB PEG SCH (09:00)
[2020-11-09] MEDS: TRIPLE PASTE 2OZ OINTMENT TOP SCH ×2 (09:00→20:40)
[2020-11-09 09:37] LABS: BASO % 0.8 % (0.0-1.0); EOS % 0.4 % (0.0-3.0); LYMPH # 0.9 10^3/uL (1.5-5.0); LYMPH % 33.7 % (24.0-44.0); MONO # 0.2 10^3/uL (0.0-0.8); NEUTROPHILS # 1.4 10^3/uL (1.5-8.5); NEUTROPHILS % 55.7 % (36.0-66.0)
--- NOTE | 2020-11-09 11:38 | IPNPDOC ---
Text Note Date of Service The patient was seen on 11/09/20. NOTE Subjective: Patient seen and examined at bedside. No acute overnight events reported. No new medical complaints this morning. Still notes abdominal pain, mostly around his PEG tube site. Objective: VITAL SIGNS: See below General: NAD, lying comfortably in bed, chronically ill appearing, cachectic HEENT: NC Lungs; CTA B/L Heart: +S1S2, RRR Abd: soft, +BS, PEG tube in place Ext: no edema A/P: 80M with PMHx lung cancer s/p chemo, SCC soft palate s/p RT/resection with dysphagia s/p PEG tube presents for ongoing intractable abdominal pain. 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 - radiation esophagitis - dysphagia s/p PEG tube placement #T3-T6 compression fractures #chronic pain - gabapentin, morphine, oxycodone #CAD/TN - does not appear on asa/BB/statin as per home meds #COPD - no wheezing, saturating well on room air #BPH - cardura, flomax #bradycardia s/p pacemaker - digoxin #GERD #failure to thrive #pancytopenia #DVT prophylaxis - mechanical Dispo: pending surgery follow up, clinical improvement; patient and family considering RADIO HOST/hospice VS,Fishbone, I+O VS, Fishbone, I+O Laboratory Tests 11/09/20 05:54 Vital Signs Date Time Temp Pulse Resp B/P (MAP) Pulse Ox O2 Delivery O2 Flow Rate FiO2 11/09/20 09:50 16 11/09/20 06:00 98.0 61 109/60 (76) 97 11/08/20 21:22 Room Air I&O- Last 24 Hours up to 6 AM 11/09/20 06:00 Intake Total 1050 ml Output Total 1175 ml Balance -125 ml IBIS CHIU MD Nov 09, 2020 11:38
[2020-11-09] MEDS ORDERED: E-Z-PAQUE 96% w/w SUSP 176GM BTL As Ordered ONE (11:45)
[2020-11-09] MEDS ORDERED: E-Z-GAS II EFFERVESCENT PACKET (SODIUM BICARB./CITRIC ACID/SIMETHICONE) As Ordered ONE (11:45)
[2020-11-09] MEDS ORDERED: E-Z-HD 98% w/w 340GM SUSP BTL As Ordered ONE (11:45)
[2020-11-09 13:48] VITALS: BP 124/70
[2020-11-09 14:00] VITALS: BP 124/70
--- NOTE | 2020-11-09 19:11 | REP ---
INDICATION: further eval duodenum. COMPARISON: CT abdomen and pelvis with contrast dated 11/07/2020 TECHNIQUE: This procedure was performed by Kathrin Mercedes [facility], under the direct supervision of Dr. Gregory. Images were reviewed with Dr. Gregory prior to dictation. This was a limited exam to only evaluate the duodenal sweep. Liquid barium was given in the supine oblique position via a the PEG tube in order to perform a single contrast upper GI examination. 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 The intestinal gas pattern is unremarkable. 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 Approximately 180 mL of thin barium was instilled via the patient's PEG tube. Contrast flows freely into the stomach and into the duodenum. Contrast flows freely through the duodenum and into the jejunum. Again visualized is in area of mild luminal narrowing in the 4th portion of the duodenum as it crosses the aorta. While this area never distends properly, contrast flows freely and smoothly through it. There is no obstruction. IMPRESSION: Area of slight luminal narrowing in the 4th portion of duodenum, as it crosses the abdominal aorta, without obstruction as described above. 2.4 minutes of fluoroscopy time was utilized for this procedure. Some fluoroscopic images are performed with last image hold technology. These images require no additional radiation. <Electronically signed by Kathrin Mercedes > 11/09/20 [id number] <Electronically signed by Fitz Gregory > 11/09/20 [id number]
[2020-11-09] MEDS: DOXAZOSIN MESYLATE 1 MG TAB PEG SCH (20:39)
[2020-11-09 22:00] VITALS: BP 106/58
[2020-11-10] MEDS: MORPHINE 2 MG/ML 1ML VIAL (J2270) IV PRN (00:57)
[2020-11-10 06:00] VITALS: BP 106/52
[2020-11-10 06:31] LABS: HEMATOCRIT 28.1 % (42.0-52.0); HEMOGLOBIN 8.7 g/dl (13.5-17.5); MEAN CORPUSCULAR HEMOGLOBIN 31.2 pg (27.0-33.0); MEAN CORPUSCULAR VOLUME 100.7 fl (80.0-96.0); RED BLOOD COUNT 2.79 10^6/uL (4.30-6.10); WHITE BLOOD COUNT 2.4 10^3/uL (4.0-10.0)
[2020-11-10 06:35] LABS: PLATELET COUNT, AUTOMATED 93 10^3/uL (150-450)
[2020-11-10 06:47] LABS: BLOOD UREA NITROGEN 17 MG/DL (7-18); CARBON DIOXIDE LEVEL 32 MEQ/L (21-32); CHLORIDE LEVEL 103 MEQ/L (98-107); CREATININE FOR GFR 0.59 MG/DL (0.70-1.30); GLOMERULAR FILTRATION RATE > 60.0 (>42); GLUCOSE, FASTING 111 MG/DL (70-100); POTASSIUM SERUM 3.3 MEQ/L (3.5-5.1); SODIUM LEVEL 139 MEQ/L (136-145)
[2020-11-10] MEDS: LR 1,000 ML IV SCH (07:39)
[2020-11-10] MEDS: ALPRAZolam 0.5 MG TAB PEG SCH ×2 (08:14→20:14)
[2020-11-10] MEDS: METOCLOPRAMIDE HCL LIQUID 10 MG/10 ML UDC PEG SCH ×4 (08:14→20:14)
[2020-11-10] MEDS: TAMSULOSIN 0.4 MG CAP PO SCH (08:14)
[2020-11-10] MEDS: GABAPENTIN 100 MG CAP PO SCH (08:15)
[2020-11-10] MEDS: PERCOCET 5MG/325MG TAB PEG SCH ×2 (08:15→12:27)
[2020-11-10] MEDS: predniSONE 5 MG TAB PEG SCH (08:15)
[2020-11-10] MEDS: DIGOXIN 0.125 MG TAB PEG SCH (08:16)
[2020-11-10] MEDS: TRIPLE PASTE 2OZ OINTMENT TOP SCH ×2 (08:17→20:15)
[2020-11-10] MEDS ORDERED: MORPHINE 2 MG/ML 1ML VIAL (J2270) IV PRN (08:45)
[2020-11-10] MEDS ORDERED: SCOPOLAMINE 1MG TRANSDERMAL PATCH TOP PRN (08:45)
[2020-11-10] MEDS ORDERED: LORazepam 2 MG/ML VIAL IV PRN (08:45)
--- NOTE | 2020-11-10 11:35 | IPNPDOC ---
Text Note Date of Service The patient was seen on 11/10/20. 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 Patient was admitted to the hospital service for further evaluation and treatment. General surgery was called on consultation. After extensive discussion with the family and patient this morning they're agree with transition to comfort measures. Patient was seen and examined at the bedside. Patient reported that he still experiencing some abdominal pain. Denies any nausea, vomiting, diarrhea, or urinary discomfort. Denies any chest pain, shortness of breath, palpitations. I have called and discussed case with patient's son Rafael Curry. I have addressed all his questions and concerns. 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 T3-T6 compression fractures Chronic pain CAD/RI Chronic COPD BPH Bradycardia s/p pacemaker GERD Failure to thrive Pancytopenia DVT prophylaxis Plan: - MOSLT form updated - Discussed with patient and son, Rafael Curry - Patient will be transitioned to comfort measures - Nonessential medications will be discontinued and medication for pain and anxiety alone will be instituted Dispo: - Will transition to ALC status today - Awaiting placement VS,Fishbone, I+O VS, Fishbone, I+O Laboratory Tests 11/10/20 05:55 Vital Signs Date Time Temp Pulse Resp B/P (MAP) Pulse Ox O2 Delivery O2 Flow Rate FiO2 11/10/20 09:10 16 11/10/20 08:16 84 11/10/20 06:00 97.0 106/52 (70) 95 Room Air I&O- Last 24 Hours up to 6 AM 11/10/20 05:59 Intake Total 1260 ml Output Total 800 ml Balance 460 ml RAIN KATE MD Nov 10, 2020 11:35
[2020-11-10] MEDS ORDERED: LORazepam 1 MG TAB PO PRN (12:50)
[2020-11-10] MEDS: MORPHINE 10MG/0.5ML ORAL CONCENTRATE SOLUTION U/D SL PRN ×2 (14:54→19:34)
[2020-11-10 20:14] VITALS: BP 110/58
[2020-11-10] MEDS: DOXAZOSIN MESYLATE 1 MG TAB PEG SCH (20:14)
[2020-11-10] MEDS: PERCOCET 5MG/325MG TAB PEG PRN (22:13)
[2020-11-11] MEDS ORDERED: MORPHINE 10MG/0.5ML ORAL CONCENTRATE SOLUTION U/D As Ordered ONE (00:19)
[2020-11-11] MEDS: MORPHINE 10MG/0.5ML ORAL CONCENTRATE SOLUTION U/D SL PRN ×3 (00:23→14:25)
[2020-11-11] MEDS ORDERED: PERCOCET 5MG/325MG TAB As Ordered ONE (02:43)
[2020-11-11] MEDS: METOCLOPRAMIDE HCL LIQUID 10 MG/10 ML UDC PEG SCH ×2 (09:32→12:28)
[2020-11-11] MEDS: TRIPLE PASTE 2OZ OINTMENT TOP SCH (09:32)
[2020-11-11] MEDS: TAMSULOSIN 0.4 MG CAP PO SCH (09:32)
[2020-11-11] MEDS: ALPRAZolam 0.5 MG TAB PEG SCH (09:32)
[2020-11-11] MEDS: predniSONE 5 MG TAB PEG SCH (09:32)
[2020-11-11] MEDS: GABAPENTIN 100 MG CAP PO SCH (09:32)
[2020-11-11] MEDS ORDERED: HYOS125TA PO (10:13)
[2020-11-11] MEDS ORDERED: ATIV1TAB10 PO (10:13)
[2020-11-11] MEDS ORDERED: MORP20SO3 PO (10:13)
[2020-11-11] MEDS: PERCOCET 5MG/325MG TAB PEG PRN (12:28)
--- NOTE | 2020-11-11 12:44 | DS.PDOC ---
Discharge Summary General Date of Admission Nov 07, 2020 at 15:57 Date of Discharge 11/11/2020 Discharge Summary PROCEDURES PERFORMED DURING STAY: [None]. 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 Patient was admitted to the hospital service for further evaluation and treatment. General surgery was called on consultation. After extensive discussion with the family and patient this morning they're agree with transition to comfort measures. Patient was seen and examined at the bedside. I had an extensive discussion with the patient about pain control. Currently patient reports that his pain is controlled with her current regimen. He does not want to add any additional medications. Patient is adamant that he will be going home. PFS has established. The patient will be going home with hospice. DISCHARGE MEDICATIONS: Please see below. ALLERGIES: Please see below. PHYSICAL EXAMINATION ON DISCHARGE: Vitals (See below) General: Patient is sitting up in bed, appears to be comfortable, not in any acute distress, is awake, alert and oriented 3 Full exam not completed ACTIVITY: [As tolerated]. DISCHARGE PLAN: Follow-up with primary care provider as needed Remain compliant with treatment plan and medications Return to the ER if you experience persistent pain DISPOSITION: Home with services DISCHARGE CONDITION: [Stable]. TIME SPENT ON DISCHARGE: 35 minutes Vital Signs/I&Os Vital Signs Date Time Temp Pulse Resp B/P (MAP) Pulse Ox O2 Delivery O2 Flow Rate FiO2 11/11/20 12:28 16 11/11/20 00:23 Room Air 11/10/20 20:14 110/58 11/10/20 08:16 84 11/10/20 06:00 97.0 95 I&O- Last 24 Hours up to 6 AM 11/11/20 06:00 Intake Total 1070 ml Output Total 700 ml Balance 370 ml Microbiology Microbiology 11/07/20 Respiratory Virus Panel (PCR) (RAFITA) - Final, Complete 11/07/20 Blood Culture - Preliminary, Resulted No Growth after 72 hours. All specime... 11/07/20 Blood Culture - Preliminary, Resulted No Growth after 72 hours. All specime... Discharge Medications Scheduled Digoxin (Digoxin) 125 Mcg Tablet, 125 MCG PEG Q2D, (Reported) Doxazosin Mesylate (Doxazosin Mesylate) 1 Mg Tablet, 1 MG PEG QHS, (Reported) Gabapentin (Gabapentin) 100 Mg Capsule, 100 MG PO DAILY, (Reported) Lactose-Reduced Food/Fiber (Jevity 1.2 Lazaro Liquid) 237 Ml Liquid, 1 LIQ PEG QID, (Reported) TAKES 3 TO 4 TIMES DAILY DEPENDING ON HOW STOMACH FEELS Metoclopramide HCl (Metoclopramide HCl) 10 Mg/10 Ml Solution, 10 MG PEG QID, (Reported) Nystatin (Nystatin Oint) 30 Gm Oint...g., 1 APLCT TOP BID, (Reported) APPLY TO AREA AROUND G-TUBE SITE Oxycodone HCl/Acetaminophen (Oxycodone-Acetaminophen 5-325) 1 Each Tablet, 2 TAB PEG QID, (Reported) Prednisone (Prednisone) 5 Mg Tablet, 5 MG PEG DAILY, (Reported) Tamsulosin HCl (Flomax) 0.4 Mg Capsule, 0.4 MG PEG DAILY, (Reported) Scheduled PRN Albuterol Sulfate (Albuterol Sulfate Hfa) 8.5 Gm Hfa.aer.ad, 2 PUFF INH QID PRN for WHEEZING, (Reported) Docusate Sodium (Docusate Sodium) 50 Mg/5 Ml Liquid, 100 MG PEG BID PRN for CONSTIPATION, (Reported) Guaifenesin (Guaifenesin) 100 Mg/5 Ml Liquid, 10 ML PEG BID PRN for CONGESTION, (Reported) Hydroxyzine Pamoate (Hydroxyzine Pamoate) 25 Mg Capsule, 25 MG PEG QID PRN for ITCHING, (Reported) Hyoscyamine Sulfate (Hyoscyamine Sulfate) 0.125 Mg Tab.subl, 0.125 MG PO Q4HP PRN for TERMINAL SECRETIONS Use sublingually if unable to swallow Lorazepam (Ativan) 0.5 Mg Tablet, 0.5 MG PO Q4HP PRN for ANXIETY/AGITATION Use sublingually if unable to swallow Magnesium Hydroxide (Milk of Magnesia) 400 Mg/5 Ml Oral.susp, 15 ML PEG DAILY PRN for CONSTIPATION, (Reported) Morphine Sulfate (Morphine Sulfate) 100 Mg/5 Ml Solution, 0.25-1 ML PO Q2H PRN for PAIN OR DYSPNEA Use sublingually if unable to swallow Polyethylene Glycol 3350 (Miralax) 119 Gm Powder, 17 GM PEG BID PRN for CONSTIPATION, (Reported) dilute in 8 ounces of water or juice Allergies Coded Allergies: No Known Allergies (Unverified , 06/03/20) RAIN KATE MD Nov 11, 2020 12:44
== END 2020-11-11 15:00 | disposition hospice, home (50) | DRG 392 ==
LOC: M ED 10:01 → M ED INP 15:57 → ENRESERV 18:14 → M MSPAV 18:48
PROVIDERS: ADMIT Internal Medicine; ATTEND Internal Medicine
DX: R10.9 Unspecified abdominal pain (principal); C34.32 Malignant neoplasm of lower lobe, left bronchus or lung; D61.818 Other pancytopenia; R13.10 Dysphagia, unspecified; I25.10 Atherosclerotic heart disease of native coronary artery without angina pectoris; I25.2 Old myocardial infarction; J44.9 Chronic obstructive pulmonary disease, unspecified; N40.0 Benign prostatic hyperplasia without lower urinary tract symptoms; K21.9 Gastro-esophageal reflux disease without esophagitis; G89.29 Other chronic pain; Z51.5 Encounter for palliative care; Z66 Do not resuscitate; R62.7 Adult failure to thrive; Z85.21 Personal history of malignant neoplasm of larynx; Z92.3 Personal history of irradiation; Z90.49 Acquired absence of other specified parts of digestive tract; Z95.0 Presence of cardiac pacemaker; Z93.1 Gastrostomy status; Z92.21 Personal history of antineoplastic chemotherapy; Z79.52 Long term (current) use of systemic steroids; Z79.899 Other long term (current) drug therapy